=== PATIENT | female | born 1970 | race Caucasian/White ===

== ENCOUNTER 2017-04-08 10:28 | Inpatient (IN) | payer OTHER ==
[2017-04-08 11:04] VITALS: BMI 27.4
--- NOTE | 2017-04-08 13:29 | HP ---
CIWA Score - CIWA Score Nausea/Vomitin-Mild Nausea/No Vomiting Muscle Tremors: 4-Moderate,w/Arms Extend Anxiety: 4-Mod. Anxious/Guarded Agitation: 4-Moderately Restless Paroxysmal Sweats: 3 Orientation: 0-Oriented Tacttile Disturbances: 0-None Auditory Disturbances: 0-None Visual Disturbances: 0-None Headache: 3-Moderate CIWA-Ar Total Score: 19 Admission ROS BHS - HPI Chief Complaint: I need to try again Allergies/Adverse Reactions: Allergies Allergy/AdvReac Type Severity Reaction Status Date / Time shellfish derived Allergy Severe Hives Verified 04/08/17 11:59 strawberry Allergy Severe Hives Verified 04/08/17 11:59 No Known Drug Allergies Allergy Verified 04/08/17 11:59 History of Present Illness: pt is a 46yr old female with a history of alcohol and cocaine dependence seeking detox for treatment. Exam Limitations: No Limitations, Intoxication - Ebola screening Have you traveled outside of the country in the last 21 days: No Have you had contact with anyone from an Ebola affected area: No Have you been sick,other than usual withdrawal symptoms: No Do you have a fever: No - Review of Systems Constitutional: Chills, Diaphoresis, Loss of Appetite, Changes in sleep, Unintentional Wgt. Loss EENT: reports: Tearing Respiratory: reports: No Symptoms reported Cardiac: reports: No Symptoms Reported GI: reports: Diarrhea, Nausea, Poor Appetite, Poor Fluid Intake, Indigestion, Abdominal cramping : reports: Burning, Discharge Musculoskeletal: reports: Back Pain, Joint Pain Integumentary: reports: Flushing, Sweating Neuro: reports: Headache, Tingling, Tremors Endocrine: reports: Excessive Sweating, Flushing, Intolerance to Cold, Intolerance to Heat Hematology: reports: No Symptoms Reported Psychiatric: reports: No Sypmtoms Reported, Judgement Intact, Mood/Affect Appropiate, Orientated x3, Agitated, Anxious Other Systems: Reviewed and Negative Patient History - Patient Medical History Hx Anemia: No Hx Asthma: No Hx Chronic Obstructive Pulmonary Disease (COPD): No Hx Cancer: No Hx Cardiac Disorders: No Hx Congestive Heart Failure: No Hx Hypertension: Yes Hx Hypercholesterolemia: No Hx Pacemaker: No HX Cerebrovascular Accident: No Hx Seizures: No Hx Dementia: No Hx Diabetes: Yes (IDDM) Hx Gastrointestinal Disorders: Yes (acid reflux) Hx Liver Disease: No Hx Genitourinary Disorders: No Hx Sexually Transmitted Disorders: No Hx Renal Disease (ESRD): No Hx Thyroid Disease: No Hx Human Immunodeficiency Virus (HIV): No (NEGATIVE HX) Hx Hepatitis C: No (negative) Hx Depression: Yes Hx Suicide Attempt: No Hx Bipolar Disorder: No Hx Schizophrenia: No - Patient Surgical History Past Surgical History: Yes Hx Neurologic Surgery: No Hx Cataract Extraction: No Hx Cardiac Surgery: No Hx Lung Surgery: No Hx Breast Surgery: No Hx Breast Biopsy: No Hx Abdominal Surgery: No Hx Appendectomy: No Hx Cholecystectomy: No Hx Genitourinary Surgery: No Hx Section: No Hx Orthopedic Surgery: Yes (neck, 11/30/2015 (fall);SX COCYX DUE TO OSTEOMYLITIS - 2010) Other Surgical History: tubal ligation in 2005 Anesthesia Reaction: No - PPD History Previous Implant?: Yes Documented Results: Negative w/proof Implanted On Prior [facility] Admission?: Yes Date: 09/21/16 Results: 0 mm PPD to be Administered?: No - Reproductive History Last Menstrual Period: 03/31/17 Patient : Yes - Smoking Cessation Smoking history: Never smoked Have you smoked in the past 12 months: No Aproximately how many cigarettes per day: 0 Cigars Per Day: 0 Hx Chewing Tobacco Use: No Initiated information on smoking cessation: No - Substance & Tx. History Hx Alcohol Use: Yes Hx Substance Use: Yes Substance Use Type: Alcohol, Cocaine Hx Substance Use Treatment: No - Substances Abused Crack Route: Smoking Frequency: 3-6 times per week Amount used: $50 Age of first use: 45 Date of Last Use: 04/07/17 Alcohol-vodka/beer Route: Oral Frequency: Daily Amount used: 1 liter/3-4 6 pks. Age of first use: 36 Date of Last Use: 04/08/17 Family Disease History - Family Disease History Family Disease History: Diabetes: Grandparent (alcohol), Father, Mother, Other: Grandparent Admission Physical Exam BHS - Vital Signs Vital Signs: Vital Signs - 24 hr 04/08/17 11:00 Temperature 97.6 F Pulse Rate 105 H Respiratory 20 Rate Blood Pressure 162/86 - Physical General Appearance: Yes: Disheveled, Moderate Distress, Tremorous, Irritable, Sweating, Anxious HEENTM: Yes: Normal Voice, Nasal Congestion, Rhinorrhea Respiratory: Yes: Lungs Clear, Normal Breath Sounds, No Respiratory Distress Neck: Yes: No masses,lesions,Nodules Breast: Yes: Within Normal Limits Cardiology: Yes: Regular Rhythm, Regular Rate, S1, S2 Abdominal: Yes: Normal Bowel Sounds, Non Tender, Soft Genitourinary: Yes: Burning, [place], Vaginal Discharge, Yeast Infection Back: Yes: Within Normal Limits Musculoskeletal: Yes: Back pain Extremities: Yes: Normal Capillary Refill, Normal Inspection, Tremors 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: Yes: Fully Oriented, Alert, Normal Response Integumentary: Yes: Normal Color, Diaphoresis Lymphatic: Yes: Within Normal Limits - Diagnostic (1) Alcohol dependence with uncomplicated withdrawal Current Visit: Yes Status: Chronic (2) Cocaine abuse Current Visit: Yes Status: Chronic (3) GERD (gastroesophageal reflux disease) Current Visit: Yes Status: Chronic Qualifiers: Esophagitis presence: without esophagitis Qualified Code(s): K21.9 - Gastro-esophageal reflux disease without esophagitis (4) Hypertension Current Visit: Yes Status: Chronic Qualifiers: Hypertension type: essential hypertension Qualified Code(s): I10 - Essential (primary) hypertension (5) Insulin dependent diabetes mellitus Current Visit: Yes Status: Chronic (6) Peripheral neuropathy Current Visit: Yes Status: Chronic Qualifiers: Peripheral neuropathy type: polyneuropathy, alcohol-induced Qualified Code(s): G62.1 - Alcoholic polyneuropathy Cleared for Admission [facility] - Detox or Rehab [facility] Level of Care: Medically Managed Detox Regimen/Protocol: Librium [facility] Breath Alcohol Content Breath Alcohol Content: 0.095 Urine Pregancy Test - Result Urine Test Results: Negative- NO Line Present Urine Drug Screen - Results Drug Screen Negative: No Urine Drug Screen Results: DEEPAK-Cocaine, BZO-Benzodiazepines
[2017-04-08] MEDS ORDERED: diphenhydrAMINE HCL 50 MG CAPSULE PO PRN (13:32)
[2017-04-08] MEDS ORDERED: hydrOXYzine PAMOATE 50 MG CAPSULE (FP) PO PRN (13:32)
[2017-04-08] MEDS ORDERED: P-EPHED 60MG/TRIPROLIDI 2.5MG TABLET PO PRN (13:32)
[2017-04-08] MEDS ORDERED: ACETAMINOPHEN 325 MG TABLET (FP) PO PRN (13:32)
[2017-04-08] MEDS ORDERED: chlordiazePOXIDE HCL 25 MG CAPSULE PO PRN (13:32)
[2017-04-08] MEDS ORDERED: MAGNESIUM CITRATE 300 ML BOTTLE PO PRN (13:32)
[2017-04-08] MEDS ORDERED: MAGNESIUM HYDROX 2400MG/30ML ORAL SUSPENSION 30 ML CUP PO PRN (13:32)
[2017-04-08] MEDS ORDERED: MAG HYDROX/AL HYDROX/SIMETH 30 ML UNIT-DOSE CUP PO PRN (13:32)
[2017-04-08] MEDS ORDERED: LOPERAMIDE HCL 2 MG CAPSULE PO PRN (13:32)
[2017-04-08] MEDS ORDERED: IBUPROFEN 400 MG TABLET (FP) PO PRN (13:32)
[2017-04-08] MEDS ORDERED: guaiFENesin/D-METHORPHAN HB 10 ML UNIT-DOSE CUPS PO PRN (13:32)
[2017-04-08] MEDS ORDERED: MENTHOL/PHENOL 1 EACH UD MM PRN (13:32)
[2017-04-08] MEDS ORDERED: chlordiazePOXIDE HCL 25 MG CAPSULE PO ONE (14:05)
[2017-04-08] MEDS ORDERED: FLUCONAZOLE 50 MG TABLET PO ONE ×2 (14:06→18:00)
[2017-04-08] MEDS: chlordiazePOXIDE HCL 25 MG CAPSULE PO SCH ×2 (17:40→22:56)
[2017-04-08] MEDS ORDERED: INSULIN (NOVOLOG) ASPART 100 UNITS/ML 10ML VIAL ONE (17:47)
[2017-04-08] MEDS: INSULIN (NOVOLOG) ASPART 100 UNITS/ML 10ML VIAL SQ SCH (17:48)
[2017-04-08 18:59] LABS: URINE APPEARANCE CLEAR; URINE BILIRUBIN NEGATIVE (NEGATIVE); URINE COLOR LTYELLOW; URINE GLUCOSE (UA) 3+ (NEGATIVE); URINE KETONE 2+ (NEGATIVE); URINE NITRITE NEGATIVE (NEGATIVE); URINE UROBILINOGEN NEGATIVE E.U./dl (0.2-1.0)
[2017-04-08 19:06] LABS: URINE BLOOD 2+ (NEGATIVE); URINE LEUK ESTERASE 2+ (NEGATIVE); URINE PROTEIN 1+ (NEGATIVE)
[2017-04-08] MEDS ORDERED: CYCLOBENZAPRINE HCL 10 MG TABLET (FP) PO ONE (19:11)
[2017-04-08 19:15] LABS: URINE BACTERIA RARE /hpf (NONE SEEN); URINE MUCUS RARE; URINE RBC 5 /hpf (0-3); URINE WBC 5 /hpf (3-5); YEAST FEW
[2017-04-08] MEDS: IBUPROFEN 400 MG TABLET (FP) PO PRN (20:38)
[2017-04-08] MEDS: RANITIDINE HCL 150 MG TABLET (FP) PO SCH (22:56)
[2017-04-08] MEDS: THIAMINE HCL 100 MG TABLET (FP) PO SCH (22:56)
[2017-04-08] MEDS: INSULIN DETEMIR 100 UNITS/ML MDV SQ SCH (22:58)
[2017-04-08] MEDS: MICONAZOLE NITRATE 2% VAGINAL CREAM 45 GM TUBE VG SCH (23:12)
[2017-04-09] MEDS: chlordiazePOXIDE HCL 25 MG CAPSULE PO SCH ×4 (05:42→22:22)
[2017-04-09] MEDS ORDERED: INSULIN (NOVOLOG) ASPART 100 UNITS/ML 10ML VIAL ONE ×3 (06:21→17:13)
[2017-04-09] MEDS: INSULIN (NOVOLOG) ASPART 100 UNITS/ML 10ML VIAL SQ SCH ×3 (07:25→17:15)
--- NOTE | 2017-04-09 10:06 | CONSULT ---
[facility] Psychiatric Consult - Data Date of interview: 04/09/17 Admission source: [facility] Identifying data: This is 46 years old female with no psychiatric hospitalization history intoxicated with: Alcohol and Cocaine Substance Abuse History: - Smoking Cessation. Smoking history: Never smoked. Have you smoked in the past 12 months: No. Aproximately how many cigarettes per day: 0. Cigars Per Day: 0. Hx Chewing Tobacco Use: No. Initiated information on smoking cessation: No. - Substance & Tx. History. Hx Alcohol Use: Yes. Hx Substance Use: Yes. Substance Use Type: Alcohol, Cocaine. Hx Substance Use Treatment: No. - Substances Abused. Crack. Route: Smoking. Frequency: 3-6 times per week. Amount used: $50. Age of first use: 45. Date of Last Use: 04/07/17. Alcohol-vodka/beer. Route: Oral. Frequency: Daily. Amount used: 1 liter/3-4 6 pks. Age of first use: 36. Date of Last Use: 08/17 Medical History: GERD, HTN, DM-1 Psychiatric History: PATIENT REPORTS HISTORY OFM AMDD, REPORTS TAKING PRIOR TO ADMISISON: TRAZODONE 200MG PO QHS. GABAPENTIN 400MG PO TID. REMERON 15MG PO QHS Physical/Sexual Abuse/Trauma History: Denies Additional Comment: TRAZODONE 200MG PO QHS. GABAPENTIN 400MG PO TID. REMERON 15MG PO QHS Mental Status Exam - Mental Status Exam Alert and Oriented to: Person Cognitive Function: Fair Patient Appearance: Unkempt Mood: Sad Patient Behavior: Sedated Speech Pattern: Delayed Voice Loudness: Mildly Soft/Quiet Thought Process: Circumstantial Thought Disorder: Being Controlled Hallucinations: Denies Suicidal Ideation: Denies Homicidal Ideation: Denies Insight/Judgement: Fair Sleep: Difficulty falling asleep Appetite: Weight gain Muscle strength/Tone: Mild Hypotonicity Gait/Station: Shuffling Additional Comments: TRAZODONE 200MG PO QHS. GABAPENTIN 400MG PO TID. 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 GABAPENTIN 400MG PO TID. REMERON 15MG PO QHS
[2017-04-09 10:16] LABS: MCH 31.1 pg (25.7-33.7); MCHC 33.9 g/dl (32.0-36.0); MEAN CELL VOLUME 91.6 fl (80-96); MEAN PLT VOLUME 8.3 fl (7.5-11.1); PLATELET COUNT 208 K/MM3 (134-434); RDW 16.1 % (11.6-15.6); WHITE BLOOD COUNT 4.8 K/mm3 (4.0-10.0)
[2017-04-09 10:37] LABS: ALBUMIN 2.6 g/dl (3.4-5.0); ALK PHOS 280 U/L (45-117); ANION GAP 19 (8-16); BILIRUBIN,TOTAL 0.5 mg/dL (0.2-1.0); CALCIUM 8.6 mg/dL (8.5-10.1); CO2 22 mmol/L (21-32); COCKROFT - GAULT 117.4955; CREATININE 0.7 mg/dL (0.55-1.02); SGOT/AST 35 U/L (15-37); SGPT/ALT 43 U/L (12-78); TOT PROT 7.1 g/dl (6.4-8.2)
[2017-04-09] MEDS: LISINOPRIL 20 MG TABLET (FP) PO SCH (10:44)
[2017-04-09] MEDS: PRENATAL VITAMINS W/ FOLIC ACID TABLET (FP) PO SCH (10:44)
[2017-04-09] MEDS: RANITIDINE HCL 150 MG TABLET (FP) PO SCH ×2 (10:44→22:21)
[2017-04-09] MEDS ORDERED: CYCLOBENZAPRINE HCL 10 MG TABLET (FP) PO PRN (10:47)
[2017-04-09] MEDS: IBUPROFEN 400 MG TABLET (FP) PO PRN (10:49)
--- NOTE | 2017-04-09 11:19 | PN ---
S CIWA - CIWA Score Nausea/Vomitin-Mild Nausea/No Vomiting Muscle Tremors: 4-Moderate,w/Arms Extend Anxiety: 3 Agitation: 4-Moderately Restless Paroxysmal Sweats: 3 Orientation: 0-Oriented Tacttile Disturbances: 0-None Auditory Disturbances: 0-None Visual Disturbances: 0-None Headache: 1-Very Mild CIWA-Ar Total Score: 16 BHS Progress Note (SOAP) Subjective: agitation nausea sweats shakes muscle cramps Objective: 04/09/17 11:18 Vital Signs Temperature 97.7 F 04/09/17 10:58 Pulse Rate 97 H 04/09/17 10:58 Respiratory Rate 18 04/09/17 10:58 Blood Pressure 149/87 04/09/17 10:58 O2 Sat by Pulse Oximetry (%) Laboratory Tests 04/08/17 04/08/17 04/08/17 12:26 15:00 17:44 WBC RBC Hgb Hct MCV MCHC RDW Plt Count MPV POC Glucometer 455 537 Urine Color Ltyellow Urine Appearance Clear Urine pH 6.0 Ur Specific [place] <= 1.005 Urine Protein 1+ H Urine Glucose (UA) 3+ H Urine Ketones 2+ H Urine Blood 2+ H Urine Nitrite Negative Urine Bilirubin Negative Urine Urobilinogen Negative Ur Leukocyte Esterase 2+ H D Urine RBC 5 Urine WBC 5 Ur Epithelial Cells Rare Urine Bacteria Rare Urine Mucus Rare Urine Yeast Few 04/08/17 04/09/17 04/09/17 21:57 05:41 06:00 WBC 4.8 RBC 4.00 Hgb 12.4 Hct 36.7 MCV 91.6 MCHC 33.9 RDW 16.1 H Plt Count 208 MPV 8.3 POC Glucometer 498 352 Urine Color Urine Appearance Urine pH Ur Specific [place] Urine Protein Urine Glucose (UA) Urine Ketones Urine Blood Urine Nitrite Urine Bilirubin Urine Urobilinogen Ur Leukocyte Esterase Urine RBC Urine WBC Ur Epithelial Cells Urine Bacteria Urine Mucus Urine Yeast labs pending awake/alert ambulating no acute distress Assessment: 04/09/17 11:18 withdrawal sx Plan: continue detox increase fluids labs pending flexiril prn glucerna with meals
[2017-04-09 12:20] LABS: GLUCOSE,RANDOM 460 mg/dL (74-106)
--- NOTE | 2017-04-09 12:50 | EKG ---
Test Reason : Blood Pressure : / mmHG Vent. Rate : 107 BPM Atrial Rate : 107 BPM P-R Int : 134 ms QRS Dur : 082 ms QT Int : 408 ms P-R-T Axes : 063 015 038 degrees QTc Int : 544 ms SINUS TACHYCARDIA POSSIBLE LEFT ATRIAL ENLARGEMENT LEFT VENTRICULAR HYPERTROPHY PROLONGED QT ABNORMAL ECG NO PREVIOUS ECGS AVAILABLE Confirmed by BAIRON LATHAM MD ([id number]) on 04/09/2017 12:50:20 PM Referred By: Confirmed By:BAIRON LATHAM MD
[2017-04-09] MEDS: GABAPENTIN 400 MG CAPSULE (FP) PO SCH ×2 (13:38→22:22)
[2017-04-09] MEDS ORDERED: MIRTAZAPINE 15 MG TABLET (FP) PO SCH (22:00)
[2017-04-09] MEDS ORDERED: traZODone HCL 100 MG TABLET (FP) PO SCH (22:00)
[2017-04-09] MEDS: THIAMINE HCL 100 MG TABLET (FP) PO SCH (22:22)
[2017-04-09] MEDS ORDERED: INSULIN (NOVOLOG) ASPART 100 UNITS/ML 10ML VIAL SQ ONE (23:07)
[2017-04-09] MEDS: MICONAZOLE NITRATE 2% VAGINAL CREAM 45 GM TUBE VG SCH (23:21)
[2017-04-09] MEDS: INSULIN DETEMIR 100 UNITS/ML MDV SQ SCH (23:21)
[2017-04-10] MEDS: chlordiazePOXIDE HCL 25 MG CAPSULE PO SCH ×2 (05:58→11:11)
[2017-04-10] MEDS: GABAPENTIN 400 MG CAPSULE (FP) PO SCH ×2 (05:58→14:03)
[2017-04-10] MEDS ORDERED: INSULIN (NOVOLOG) ASPART 100 UNITS/ML 10ML VIAL ONE (06:51)
[2017-04-10] MEDS: INSULIN (NOVOLOG) ASPART 100 UNITS/ML 10ML VIAL SQ SCH ×2 (06:54→11:11)
--- NOTE | 2017-04-10 09:55 | PN ---
S Progress Note Note: Pt is AAOx3 and appears with chills, sweats, fever with a temp of 102, BP 144/88 , pulse 129. spoke with AMINATA Johnson and gave report for pt evaluation.
[2017-04-10 10:40] VITALS: BP 144/88; PULSE 129; TEMP 102.2
[2017-04-10] MEDS: RANITIDINE HCL 150 MG TABLET (FP) PO SCH (11:11)
[2017-04-10] MEDS: LISINOPRIL 20 MG TABLET (FP) PO SCH (11:11)
[2017-04-10] MEDS: PRENATAL VITAMINS W/ FOLIC ACID TABLET (FP) PO SCH (11:11)
[2017-04-10] MEDS ORDERED: chlordiazePOXIDE 5 MG CAPSULE PO SCH (17:00)
--- NOTE | 2017-04-11 09:02 | DS ---
[facility] Detox Discharge Summary Admission Date: 04/08/17 Discharge Date: 04/11/17 - History Present History: Alcohol Dependence - Physical Exam Results Vital Signs: Vital Signs Temperature 102.2 F H 04/10/17 10:39 Pulse Rate 129 H 04/10/17 10:39 Respiratory Rate 18 04/10/17 10:39 Blood Pressure 144/88 04/10/17 10:39 O2 Sat by Pulse Oximetry (%) - Treatment Hospital Course: Detox Protocol Followed, Detoxed Safely, Responded well, Discharged Condition Good, Rehab Referral Accepted - Medication Discharge Medications: Ambulatory Orders Insulin Sliding Scale [Novolog Vial Sliding Scale -] 0 units SQ TIDAC 05/30/16 Ibuprofen [Motrin -] 800 mg PO Q8H PRN #60 tablet 11/27/16 Insulin Glargine,Hum.rec.anlog [Lantus (10mL VIAL) -] 25 units SQ HS #1 vial Lisinopril [Prinivil] 20 mg PO DAILY #30 tablet 11/27/16 Ranitidine [Zantac -] 150 mg PO BID #60 tablet 11/27/16 Gabapentin [Neurontin -] 400 mg PO TID #90 cap 04/09/17 Mirtazapine [Remeron -] 15 mg PO HS #30 tab 04/09/17 Trazodone HCl [Desyrel -] 200 mg PO HS #30 tablet 04/09/17 - Diagnosis (1) Alcohol dependence with uncomplicated withdrawal Status: Chronic (2) Cocaine abuse Status: Chronic (3) GERD (gastroesophageal reflux disease) Status: Chronic Qualifiers: Esophagitis presence: without esophagitis Qualified Code(s): K21.9 - Gastro-esophageal reflux disease without esophagitis (4) Hypertension Status: Chronic Qualifiers: Hypertension type: essential hypertension Qualified Code(s): I10 - Essential (primary) hypertension (5) Insulin dependent diabetes mellitus Status: Chronic (6) Peripheral neuropathy Status: Chronic Qualifiers: Peripheral neuropathy type: polyneuropathy, alcohol-induced Qualified Code(s): G62.1 - Alcoholic polyneuropathy - AMA Did Patient Leave Against Medical Advice: No (pt sent to ED for high fever)
[2017-04-11] MEDS ORDERED: chlordiazePOXIDE HCL 10 MG CAPSULE PO SCH (17:00)
== END 2017-04-10 18:46 | disposition short-term general hospital (02) | DRG 897 ==
LOC: YASAS 10:28 → Y6N 13:08
PROVIDERS: ADMIT Internal Medicine Addiction Medicine; ATTEND Internal Medicine Addiction Medicine
PROC: HZ2ZZZZ Detoxification Services for Substance Abuse Treatment (ICD-10-PCS; principal; 2017-04-08)
DX: F10.230 Alcohol dependence with withdrawal, uncomplicated (principal); F10.280 Alcohol dependence with alcohol-induced anxiety disorder; F10.282 Alcohol dependence with alcohol-induced sleep disorder; F14.10 Cocaine abuse, uncomplicated; F32.9 Major depressive disorder, single episode, unspecified; E11.9 Type 2 diabetes mellitus without complications; I10 Essential (primary) hypertension; K21.9 Gastro-esophageal reflux disease without esophagitis; G62.1 Alcoholic polyneuropathy; R50.9 Fever, unspecified; Z79.4 Long term (current) use of insulin
CPT/HCPCS: 36415; 80053; 81003; 81015; 85027; 86593; 93005; 93010

== ENCOUNTER 2017-04-10 10:53 | Inpatient (IN) | payer OTHER ==
--- NOTE | 2017-04-10 11:11 | PDOC ---
History of Present Illness - History of Present Illness Initial Comments: 04/10/17 14:02 The patient is a 46 year old female, with a significant past medical history of Hypertension, GERD, and Diabetes Type I, who presents to the emergency department from [facility] with fever and lower extremity cellulitis today. The patient is somnolent at bedside and not answering questions. Allergies: NKDA Social history: cocaine and alcohol abuse. <Karla Nye - Last Filed: 04/10/17 16:50> <Janeen Pulido - Last Filed: 04/24/17 12:06> - General Chief Complaint: SIRS, Suspected/Possible Stated Complaint: FEVER Time Seen by Provider: 04/10/17 11:10 Past History <Karla Nye - Last Filed: 04/10/17 16:50> - Past Medical History Anemia: No Asthma: No Cancer: No Cardiac Disorders: No CVA: No COPD: No CHF: No Dementia: No Diabetes: Yes (IDDM) GI Disorders: Yes (acid reflux) Disorders: No HTN: Yes Hypercholesterolemia: No Kidney Stones: No Liver Disease: No Suicide Attempt (Hx): No Seizures: No Thyroid Disease: No - Surgical History Abdominal Surgery: No Appendectomy: No Cardiac Surgery: No Cholecystectomy: No Lung Surgery: No Neurologic Surgery: No Orthopedic Surgery: Yes (neck, 11/30/2015 (fall);SX COCYX DUE TO OSTEOMYLITIS- 2010) - Reproductive History PID: No - Psycho/Social/Smoking Cessation Hx Anxiety: Yes Suicidal Ideation: No Smoking History: Never smoked Have you smoked in the past 12 months: No Number of Cigarettes Smoked Daily: 0 Cigars Per Day: 0 'Breaking Loose' booklet given: 05/30/16 Hx Alcohol Use: Yes Drug/Substance Use Hx: Yes Substance Use Type: Alcohol, Cocaine Hx Substance Use Treatment: No <Janeen Pulido - Last Filed: 04/24/17 12:06> - Past Medical History Allergies/Adverse Reactions: Allergies Allergy/AdvReac Type Severity Reaction Status Date / Time shellfish derived Allergy Severe Hives Verified 04/10/17 11:13 strawberry Allergy Severe Hives Verified 04/10/17 11:13 No Known Drug Allergies Allergy Verified 04/10/17 11:13 Home Medications: Ambulatory Orders Insulin Sliding Scale [Novolog Vial Sliding Scale -] 0 units SQ TIDAC 05/30/16 Ibuprofen [Motrin -] 800 mg PO Q8H PRN #60 tablet 11/27/16 Insulin Glargine,Hum.rec.anlog [Lantus (10mL VIAL) -] 25 units SQ HS #1 vial Lisinopril [Prinivil] 20 mg PO DAILY #30 tablet 11/27/16 Ranitidine [Zantac -] 150 mg PO BID #60 tablet 11/27/16 Gabapentin [Neurontin -] 400 mg PO TID #90 cap 04/09/17 Mirtazapine [Remeron -] 15 mg PO HS #30 tab 04/09/17 Trazodone HCl [Desyrel -] 200 mg PO HS #30 tablet 04/09/17 Review of Systems - Review of Systems Able to Perform ROS?: No (poor historian, somnolent) <Karla Nye - Last Filed: 04/10/17 16:50> *Physical Exam - Vital Signs Last Vital Signs Temp Pulse Resp BP Pulse Ox 101.7 F H 101 H 17 109/62 98 04/10/17 11:08 04/10/17 12:00 04/10/17 12:00 04/10/17 12:00 04/10/17 12:00 <Karla Nye - Last Filed: 04/10/17 16:50> - Physical Exam Comments: GENERAL: Sleeping, wakes up to voice. HEAD: No signs of trauma EYES: PERRLA, EOMI, sclera anicteric, conjunctiva clear ENT: Auricles normal inspection, hearing grossly normal, nares patent, oropharynx clear without exudates. Moist mucosa NECK: Normal ROM, supple, no lymphadenopathy, JVD, or masses LUNGS: Breath sounds equal, clear to auscultation bilaterally. No wheezes, and no crackles HEART:Tachycardic, normal S1 and S2, no murmurs, rubs or gallops ABDOMEN: Soft, nontender, normoactive bowel sounds. No guarding, no rebound. No masses EXTREMITIES: RLE with erythema/induration extending up to the knee. Knee is edematous, tender. No fluctuant areas. Dec ROM R knee due to pain. Remainder of extremities with normal range of motion, no edema. No clubbing or cyanosis. No cords, erythema, or tenderness NEUROLOGICAL: Poor cooperation with initial exam. No gross deficits SKIN: Warm, Dry, normal turgor, no rashes or lesions noted. <Janeen Pulido - Last Filed: 04/24/17 12:06> Procedures - Arthrocentesis Indication: Septic Joint Arthrocentesis Site: right: knee Betadine Prep: (chloraprep) Sterile Dressing Applied: Yes Dry Tap: No Fluid Color: Bloody (clear fluid, blood-tinged) Anesthesia: 1% Lidocaine Needle Size (guage): 18g Complications: No (pt tolerated well) <Janeen Pulido - Last Filed: 04/24/17 12:06> ED Treatment Course - LABORATORY CBC & Chemistry Diagram: 04/10/17 12:10 04/10/17 12:18 - ADDITIONAL ORDERS Additional order review: Laboratory Results 04/10/17 04/10/17 04/10/17 12:18 12:18 12:18 INR Sodium Potassium Chloride Carbon Dioxide Anion Gap BUN Creatinine Creat Clearance w eGFR Random Glucose Lactic Acid 3.225 H* Calcium Total Bilirubin AST ALT Alkaline Phosphatase C-Reactive Protein Cancelled Total Protein Albumin Blood Type O NEGATIVE Antibody Screen Negative Spec Expiration Date 04/10/17 04/10/17 12:18 12:18 INR 1.26 H Sodium 134 L Potassium 4.2 Chloride 99 Carbon Dioxide 26 Anion Gap 9 BUN 12 D Creatinine 0.9 D Creat Clearance w eGFR > 60 Random Glucose 596 H* D Lactic Acid Calcium 9.2 Total Bilirubin 0.4 AST 32 ALT 39 Alkaline Phosphatase 341 H D C-Reactive Protein 3.0 H Total Protein 6.2 L Albumin 2.1 L Blood Type Antibody Screen Spec Expiration Date 04/10/17 12:10 RBC 4.09 MCV 92.6 MCHC 33.1 RDW 16.3 H MPV 7.8 Neutrophils % 83.3 H D Lymphocytes % 10.1 D Monocytes % 6.4 Eosinophils % 0.0 Basophils % 0.2 - RADIOLOGY Radiograph Interpretation: 04/10/17 16:50 Soft tissue US of right lower extremity was read by Dr. Portillo at 15:42 Impression: suspected subcutaneous abscess anterior to the right knee. See note for details. - Medications Given in the ED: ED Medications Discontinued Medications Generic Name Dose Route Start Last Admin Trade Name Freq PRN Reason Stop Dose Admin Ceftriaxone Sodium 2 gm/ 100 mls @ 200 mls/hr 04/10/17 11:30 04/10/17 12:19 Dextrose IVPB 04/10/17 11:59 200 mls/hr ONCE ONE Administration Vancomycin HCl 1,000 mg/ 250 mls @ 250 mls/hr 04/10/17 11:30 04/10/17 12:32 Dextrose IVPB 04/10/17 12:29 250 mls/hr ONCE ONE Administration Protocol Insulin Human Regular 6 units 04/10/17 13:32 04/10/17 13:50 Novolin R Vial *For Ivpush Or Iv Drip Only* SQ 04/10/17 13:33 6 units ONCE ONE Administration <Karla Nye - Last Filed: 04/10/17 16:50> - LABORATORY CBC & Chemistry Diagram: 04/18/17 07:40 04/18/17 07:40 <Janeen Pulido - Last Filed: 04/24/17 12:06> Medical Decision Making - Medical Decision Making 04/10/17 14:06 Dr. Morgan was called at 14:00 and the patient's case was discussed. Dr. Morgan accepts admission of this patient and requests consult to Dr. Kan and Dr. Bonifacio Kan was paged at his office at 14:06 requesting for a doctor to doctor consult regarding this patient. I have been informed that Dr. Kan will return the call when he is finished seeing a patient. Dr. Valdovinos was called via phone answering service at 14:10 requesting a call back for doctor to doctor consult regarding this patient. Dr. Kan returned the call at 14:14 and the patient's case was discussed. Dr. Valdovinos returned the call at 14:53 and the patient's case was discussed. 04/10/17 15:11 Dr. Kan was paged at his office requesting a call back, after aspiration of the patient's right knee, for doctor to doctor consult. 04/10/17 16:51 Dr. Morgan was called and updated about the patient's care. <Karla Nye - Last Filed: 04/10/17 16:50> - Medical Decision Making Patient with significant cellulitis to RLE. She has multiple excoriated and abraded areas for possible entry of bacteria. She met criteria for sepsis, was given abx immediately. I initially considered arthrocentesis of the knee, but with the significant cellulitis, did not want to enter through the cellulitis. I discussed with Dr. Kan, who stated that it would be acceptable to do this, so at that point I did the arthrocentesis. I was able to find an area that was free of erythema to enter. The fluid was clear and there was very little, which I also discussed with Dr. Kan. Less concern for septic joint given this finding. At this point it raised concern that perhaps there was an abscess overlying the knee joint, so I obtained soft tissue sono to further evaluate. I opted not to open the abscess, as it was difficult to find by palpation, and due to proximity to joint. Discussed with Dr. Morgan, front desk supervisor for service admissions today. Will place ID and ortho consult. <Janeen Pulido - Last Filed: 04/24/17 12:06> *DC/Admit/Observation/Transfer - Attestations Scribe Attestion: 04/10/17 14:04 Documentation prepared by Karla Nye, acting as senior medical transcriptionist for Janeen Pulido MD, <Karla Nye - Last Filed: 04/10/17 16:50> - Discharge Dispostion Admit: Yes <Janeen Pulido - Last Filed: 04/24/17 12:06> Diagnosis at time of Disposition: Sepsis Qualifiers: Sepsis type: sepsis due to unspecified organism Qualified Code(s): A41.9 - Sepsis, unspecified organism Cellulitis Qualifiers: Site of cellulitis: extremity Site of cellulitis of extremity: lower extremity Laterality: right Qualified Code(s): L03.115 - Cellulitis of right lower limb - Discharge Dispostion Disposition: [facility] Condition at time of disposition: Guarded
[2017-04-10 11:16] VITALS: BMI 27.4
[2017-04-10] MEDS ORDERED: VANCOMYCIN 1,000 MG in DEXTROSE 5%-WATER - 250 ML IVPB ONE (11:30)
[2017-04-10] MEDS ORDERED: CEFTRIAXONE 2 GM in DEXTROSE 5%-WATER - 100 ML IVPB ONE (11:30)
[2017-04-10] MEDS ORDERED: VANCOMYCIN 1 GRAM (PRE-DOCKED) 250 ML IVPB ONE (11:57)
[2017-04-10] MEDS ORDERED: CEFTRIAXONE 50 ML ONE ×2 (11:57→12:19)
[2017-04-10 12:25] LABS: BASOPHIL 0.2 % (0-2.0); MCH 30.7 pg (25.7-33.7); MCHC 33.1 g/dl (32.0-36.0); MEAN CELL VOLUME 92.6 fl (80-96); MEAN PLT VOLUME 7.8 fl (7.5-11.1); NEUTROPHILS 83.3 % (42.8-82.8); PLATELET COUNT 200 K/MM3 (134-434); RDW 16.3 % (11.6-15.6); WHITE BLOOD COUNT 9.5 K/mm3 (4.0-10.0)
[2017-04-10 12:40] LABS: INR 1.26 (0.82-1.09); PROTHROMBIN TIME (PATIENT) 13.9 SEC (9.98-11.88)
[2017-04-10 12:47] LABS: ALBUMIN 2.1 g/dl (3.4-5.0); ALK PHOS 341 U/L (45-117); ANION GAP 9 (8-16); BILIRUBIN,TOTAL 0.4 mg/dL (0.2-1.0); CALCIUM 9.2 mg/dL (8.5-10.1); CO2 26 mmol/L (21-32); COCKROFT - GAULT 91.3835; CREATININE 0.9 mg/dL (0.55-1.02); SGOT/AST 32 U/L (15-37); SGPT/ALT 39 U/L (12-78); TOT PROT 6.2 g/dl (6.4-8.2)
[2017-04-10 12:48] LABS: GLUCOSE,RANDOM 596 mg/dL (74-106)
[2017-04-10] MEDS ORDERED: INSULIN REGULAR HUMAN 100 UNITS/ML *VIAL SQ ONE ×2 (13:32→16:13)
[2017-04-10] MEDS ORDERED: SODIUM CHLORIDE 1,000 ML IV STA (13:32)
[2017-04-10] MEDS ORDERED: INSULIN REGULAR HUMAN 100 UNITS/ML *VIAL ONE (13:43)
[2017-04-10] MEDS ORDERED: morphine CARPU-JECT 4 MG/1 ML DISP.SYRIN IVPUSH ONE (14:19)
[2017-04-10] MEDS ORDERED: morphine CARPU-JECT 4 MG/1 ML DISP.SYRIN ONE (14:20)
[2017-04-10] MEDS ORDERED: ACETAMINOPHEN 1000 MG/100 ML VIAL (NON FORMULARY) IVPB ONE (14:55)
[2017-04-10] MEDS ORDERED: ACETAMINOPHEN INJECTION 100 ML IVPB ONE ×2 (15:25→16:11)
[2017-04-10] MEDS ORDERED: SODIUM CHLORIDE 1,000 ML IV SCH (15:45)
[2017-04-10] MEDS ORDERED: INSULIN (NOVOLOG) ASPART 100 UNITS/ML 10ML VIAL ONE ×2 (16:14→21:30)
[2017-04-10 20:08] LABS: SYNOVIAL FLUID NEUTROPHILS 81 %
[2017-04-10 20:09] LABS: SYNOVIAL FLUID LYMPHOCYTES 11 %; SYNOVIAL FLUID MONOCYTES 7 %
--- NOTE | 2017-04-10 20:19 | HP ---
Admitting History and Physical - Admission Chief Complaint: Fever History of Present Illness: Pt is a 46 y/o female with PMH significant for HTN, GERD, diabetes and substance abuse. Pt was sent from [facility] due to fever. In the ER pt found to have cellulitis of RLE w/ probable fluid collection of Rt knee wc was subsquently drained in the ER. Pt was found to be febrile to 101.7 with normal WBC. History Source: Patient, Medical Record - Past Medical History Cardiovascular: Yes: HTN Gastrointestinal: Yes: GERD ...LMP: 03/31/17 ...: No Psych: Yes: Other (Substance abuse) - Smoking History Smoking history: Never smoked Have you smoked in the past 12 months: No Aproximately how many cigarettes per day: 0 - Alcohol/Substance Use Hx Alcohol Use: Yes Home Medications - Allergies Allergies/Adverse Reactions: Allergies Allergy/AdvReac Type Severity Reaction Status Date / Time shellfish derived Allergy Severe Hives Verified 04/10/17 11:13 strawberry Allergy Severe Hives Verified 04/10/17 11:13 No Known Drug Allergies Allergy Verified 04/10/17 11:13 - Home Medications Home Medications: Ambulatory Orders Insulin Sliding Scale [Novolog Vial Sliding Scale -] 0 units SQ TIDAC 05/30/16 Ibuprofen [Motrin -] 800 mg PO Q8H PRN #60 tablet 11/27/16 Insulin Glargine,Hum.rec.anlog [Lantus (10mL VIAL) -] 25 units SQ HS #1 vial Lisinopril [Prinivil] 20 mg PO DAILY #30 tablet 11/27/16 Ranitidine [Zantac -] 150 mg PO BID #60 tablet 11/27/16 Gabapentin [Neurontin -] 400 mg PO TID #90 cap 04/09/17 Mirtazapine [Remeron -] 15 mg PO HS #30 tab 04/09/17 Trazodone HCl [Desyrel -] 200 mg PO HS #30 tablet 04/09/17 Family Disease History - Family Disease History Family Disease History: Diabetes: Grandparent (alcohol), Father, Mother, Other: Grandparent Physical Examination Vital Signs: Vital Signs Temperature 98.9 F 04/10/17 18:27 Pulse Rate 88 04/10/17 18:27 Respiratory Rate 20 04/10/17 18:27 Blood Pressure 109/60 04/10/17 18:27 O2 Sat by Pulse Oximetry (%) 94 L 04/10/17 18:27 Problem List - Problems (1) Cellulitis Assessment/Plan: Cont IV antibxs ID/ortho consults called Follow cultures Code(s): L03.90 - CELLULITIS, UNSPECIFIED Qualifiers: Site of cellulitis: extremity Site of cellulitis of extremity: lower extremity Laterality: right Qualified Code(s): L03.115 - Cellulitis of right lower limb (2) Hypertension Assessment/Plan: Cont lisinopril Code(s): I10 - ESSENTIAL (PRIMARY) HYPERTENSION Qualifiers: Hypertension type: essential hypertension Qualified Code(s): I10 - Essential (primary) hypertension (3) Diabetes Assessment/Plan: Cont levemir/novolog Cont sliding scale Code(s): E11.9 - TYPE 2 DIABETES MELLITUS WITHOUT COMPLICATIONS (4) Substance abuse Assessment/Plan: Psych consult Code(s): F19.10 - OTHER PSYCHOACTIVE SUBSTANCE ABUSE, UNCOMPLICATED (5) GERD (gastroesophageal reflux disease) Assessment/Plan: Cont ranitidine Code(s): K21.9 - GASTRO-ESOPHAGEAL REFLUX DISEASE WITHOUT ESOPHAGITIS Qualifiers: Esophagitis presence: without esophagitis Qualified Code(s): K21.9 - Gastro-esophageal reflux disease without esophagitis
[2017-04-10] MEDS ORDERED: SODIUM CHLORIDE 0.45% 1,000 ML IV SCH (20:30)
[2017-04-10] MEDS: HEPARIN NA (PORCINE) 5,000 UNITS/ML 1ML VIAL SQ SCH (21:26)
[2017-04-10] MEDS: RANITIDINE HCL 150 MG TABLET (FP) PO SCH (21:27)
[2017-04-10] MEDS: INSULIN DETEMIR 100 UNITS/ML MDV SQ SCH (21:29)
[2017-04-10] MEDS: INSULIN SLIDING SCALE (NOVOLOG) 1 VIAL SQ SCH (21:31)
[2017-04-10] MEDS ORDERED: GABAPENTIN 400 MG CAPSULE (FP) PO SCH (22:00)
[2017-04-10] MEDS ORDERED: MIRTAZAPINE 15 MG TABLET (FP) PO SCH (22:00)
[2017-04-11 03:04] LABS: URINE MARIJUANA THC NEGATIVE ng/ml (CUTOFF=50)
[2017-04-11] MEDS ORDERED: traMADol HCL 50 MG TABLET PO ONE (04:25)
[2017-04-11] MEDS: INSULIN SLIDING SCALE (NOVOLOG) 1 VIAL SQ SCH ×5 (06:24→21:43)
[2017-04-11] MEDS ORDERED: INSULIN (NOVOLOG) ASPART 100 UNITS/ML 10ML VIAL ONE ×4 (06:30→21:43)
[2017-04-11 08:49] LABS: BASOPHIL 0.6 % (0-2.0); MCH 30.6 pg (25.7-33.7); MCHC 33.3 g/dl (32.0-36.0); MEAN CELL VOLUME 91.9 fl (80-96); MEAN PLT VOLUME 8.2 fl (7.5-11.1); NEUTROPHILS 70.3 % (42.8-82.8); PLATELET COUNT 169 K/MM3 (134-434); RDW 16.4 % (11.6-15.6); WHITE BLOOD COUNT 7.3 K/mm3 (4.0-10.0)
[2017-04-11 09:20] LABS: ALBUMIN 1.9 g/dl (3.4-5.0); ANION GAP 12 (8-16); CALCIUM 7.7 mg/dL (8.5-10.1); CO2 23 mmol/L (21-32); GLUCOSE,RANDOM 260 mg/dL (74-106)
[2017-04-11 09:23] LABS: ALK PHOS 208 U/L (45-117); BILIRUBIN,TOTAL 0.3 mg/dL (0.2-1.0); COCKROFT - GAULT 205.6235; CREATININE 0.4 mg/dL (0.55-1.02); SGOT/AST 24 U/L (15-37); SGPT/ALT 31 U/L (12-78); TOT PROT 5.6 g/dl (6.4-8.2)
[2017-04-11] MEDS ORDERED: cefTRIAXone 1 GM/50 ML BAG (PRE-DOCKED) IVPB SCH (10:00)
[2017-04-11] MEDS ORDERED: CEFTRIAXONE 1 GM in DEXTROSE 5%-WATER - 50 ML IVPB SCH (10:00)
--- NOTE | 2017-04-11 10:17 | CONSULT ---
Consult Consult Specialty:: infectious diseases Referred by:: dr Vernon Reason for Consultation:: cellulitis of the rt leg,knee joint,healing wound on the knee joint - History of Present Illness Chief Complaint: pain and redness of the leg and knee joint History of Present Illness: patient not answering questions just sleeping and moans in pain the story is as follows 46 year old female, with a significant past medical history of Hypertension, GERD, and Diabetes Type I, who presents to the emergency department from [facility] with fever and lower extremity cellulitis today. as per discussion with er attending the though process was there was fluid in the knee joint which was aspirated by ER attending patient then receive u/s which showed collection ortho was called - History Source History Provided By: Medical Record Limitations to Obtaining History: Clinical Condition - Past Medical History ...LMP: 03/31/17 ...: No - Alcohol/Substance Use Hx Alcohol Use: Yes - Smoking History Smoking history: Never smoked Have you smoked in the past 12 months: No Aproximately how many cigarettes per day: 0 Home Medications - Allergies Allergies/Adverse Reactions: Allergies Allergy/AdvReac Type Severity Reaction Status Date / Time shellfish derived Allergy Severe Hives Verified 04/10/17 11:13 strawberry Allergy Severe Hives Verified 04/10/17 11:13 No Known Drug Allergies Allergy Verified 04/10/17 11:13 - Home Medications Home Medications: Ambulatory Orders Insulin Sliding Scale [Novolog Vial Sliding Scale -] 0 units SQ TIDAC 05/30/16 Ibuprofen [Motrin -] 800 mg PO Q8H PRN #60 tablet 11/27/16 Insulin Glargine,Hum.rec.anlog [Lantus (10mL VIAL) -] 25 units SQ HS #1 vial Lisinopril [Prinivil] 20 mg PO DAILY #30 tablet 11/27/16 Ranitidine [Zantac -] 150 mg PO BID #60 tablet 11/27/16 Gabapentin [Neurontin -] 400 mg PO TID #90 cap 04/09/17 Mirtazapine [Remeron -] 15 mg PO HS #30 tab 04/09/17 Trazodone HCl [Desyrel -] 200 mg PO HS #30 tablet 04/09/17 Family Disease History - Family Disease History Family Disease History: Diabetes: Grandparent (alcohol), Father, Mother, Other: Grandparent Review of Systems Unable to obtain ROS, reason: unable to obtain Physical Exam Vital Signs: Vital Signs Temperature 98.6 F 04/11/17 06:00 Pulse Rate 92 H 04/11/17 06:00 Respiratory Rate 20 04/11/17 06:00 Blood Pressure 122/76 04/11/17 06:00 O2 Sat by Pulse Oximetry (%) 96 04/10/17 21:00 Constitutional: Yes: Other (sleeping) Eyes: Yes: Conjunctiva Clear Neck: Yes: Supple Cardiovascular: Yes: Regular Rate and Rhythm Respiratory: Yes: Regular, CTA Bilaterally Gastrointestinal: Yes: Normal Bowel Sounds, Soft Musculoskeletal: Yes: Other Extremities: Yes: Erythema, Other (knee joint involvement) Integumentary: Yes: Erythema, Laceration, Other Wound/Incision: Yes: Open to air, Other 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: Yes: Other Psychiatric: Yes: Other Labs: CBC, BMP 04/11/17 07:30 04/11/17 07:30 Imaging - Results X-ray: Report Reviewed, Image Reviewed Ultrasound: Report Reviewed, Image Reviewed Assessment/Plan drug abuse knee collection r/o abscess of the knee joint methadone use plan patient needs ortho to evaluate the patient might need aspiration of the knee joint abx started await for cx report
--- NOTE | 2017-04-11 10:29 | PN ---
Progress Note, Physician History of Present Illness: patient more awake today more cooperative allowing to examine according to the patient she injured her leg on the glass and then she developed ulcer on the foot which then according to her led to cellulitits her cellulitits looks better - Current Medication List Current Medications: Active Medications Ceftriaxone Sodium (Rocephin 1gm Ivpb (Pre-Docked)) 1 gm IVPB DAILY [facility] Heparin Sodium (Porcine) (Heparin -) 5,000 unit SQ BID [facility] Last Admin: 04/10/17 21:26 Dose: 5,000 unit Sodium Chloride (1/2 Normal Saline) 1,000 mls @ 75 mls/hr IV ASDIR [facility] Last Admin: 04/10/17 21:29 Dose: 75 mls/hr Insulin Aspart (Novolog Vial Sliding Scale -) 1 vial SQ ACHS [facility] PRN Reason: Protocol Last Admin: 04/11/17 06:24 Dose: 6 units Insulin Detemir (Levemir Vial) 25 units SQ HS [facility] Last Admin: 04/10/17 21:29 Dose: 25 units Lisinopril (Prinivil) 20 mg PO DAILY [facility] Ranitidine HCl (Zantac -) 150 mg PO BID [facility] Last Admin: 04/10/17 21:27 Dose: 150 mg - Objective Vital Signs: Vital Signs Temperature 98.6 F 04/11/17 06:00 Pulse Rate 92 H 04/11/17 06:00 Respiratory Rate 20 04/11/17 06:00 Blood Pressure 122/76 04/11/17 06:00 O2 Sat by Pulse Oximetry (%) 96 04/10/17 21:00 Constitutional: Yes: Calm, Moderate Distress Cardiovascular: Yes: Regular Rate and Rhythm Respiratory: Yes: Regular, CTA Bilaterally Gastrointestinal: Yes: Normal Bowel Sounds, Soft Musculoskeletal: Yes: Joint Swelling (rt knee joint), Other Extremities: Yes: Erythema, Other Edema: RLE: 1+ Integumentary: Yes: Erythema (better than yesterday) Wound/Incision: Yes: Other 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: Yes: Alert, Oriented Psychiatric: Yes: Alert, Oriented Labs: CBC, BMP 04/11/17 07:30 04/11/17 07:30 INR, PTT INR 1.26 (0.82-1.09) H 04/10/17 12:18 Assessment/Plan drug abuse knee collection r/o abscess of the knee joint methadone use r/o osteo plan ortho needs to evaluate the patient might need drainage will do mri of the leg rest act abx
[2017-04-11] MEDS: LISINOPRIL 20 MG TABLET (FP) PO SCH (11:07)
[2017-04-11] MEDS: RANITIDINE HCL 150 MG TABLET (FP) PO SCH ×2 (11:07→21:44)
[2017-04-11] MEDS: VANCOMYCIN 1,250 MG in DEXTROSE 5%-WATER - 250 ML IVPB SCH ×2 (11:08→13:26)
[2017-04-11] MEDS: HEPARIN NA (PORCINE) 5,000 UNITS/ML 1ML VIAL SQ SCH ×2 (11:08→21:24)
[2017-04-11] MEDS: PIPERACILLIN/TAZOB 3.375 GM 50 ML IVPB SCH ×4 (11:08→18:54)
[2017-04-11 16:00] LABS: GLUCOSE,SYNOVIAL FLUID 21 mg/dL
[2017-04-11 16:29] LABS: TOTAL PROTEIN,SYNOVIAL FLUID 2 gm/dL
[2017-04-11] MEDS ORDERED: KETOROLAC TROMETHAMINE 30 MG/1 ML VIAL IVPB SCH (19:00)
[2017-04-11] MEDS: morphine CARPU-JECT 2 MG/1 ML DISP.SYRIN IVPUSH PRN (21:39)
[2017-04-11] MEDS: INSULIN DETEMIR 100 UNITS/ML MDV SQ SCH (21:43)
--- NOTE | 2017-04-11 22:14 | PN ---
Progress Note, Physician History of Present Illness: Pt more awake and having increased pain Slight streaking above knee Pt unable to have MRI bc she had a coil placed in her neck about 1 yr ago S/p head trauma - Current Medication List Current Medications: Active Medications Heparin Sodium (Porcine) (Heparin -) 5,000 unit SQ BID [facility] Last Admin: 04/11/17 21:24 Dose: Not Given Piperacillin Sod/Tazobactam Sod (Zosyn 3.375gm Ivpb (Pre-Docked)) 50 mls @ 100 mls/hr IVPB Q8H-IV [facility] PRN Reason: Protocol Last Admin: 04/11/17 18:54 Dose: 100 mls/hr Vancomycin HCl 1,250 mg/ (Sodium Chloride) 250 mls @ 166.667 mls/hr IVPB DAILY@ 1200 [facility] PRN Reason: Protocol Insulin Aspart (Novolog Vial Sliding Scale -) 1 vial SQ ACHS [facility] PRN Reason: Protocol Last Admin: 04/11/17 21:43 Dose: 12 units Insulin Detemir (Levemir Vial) 25 units SQ HS [facility] Last Admin: 04/11/17 21:43 Dose: 25 units Lisinopril (Prinivil) 20 mg PO DAILY [facility] Last Admin: 04/11/17 11:07 Dose: 20 mg Morphine Sulfate (Morphine Injection -) 2 mg IVPUSH Q4H PRN PRN Reason: PAIN Last Admin: 04/11/17 21:39 Dose: 2 mg Ranitidine HCl (Zantac -) 150 mg PO BID [facility] Last Admin: 04/11/17 21:44 Dose: 150 mg - Objective Vital Signs: Vital Signs Temperature 98.8 F 04/11/17 18:00 Pulse Rate 98 H 04/11/17 18:00 Respiratory Rate 18 04/11/17 18:00 Blood Pressure 151/89 04/11/17 18:00 O2 Sat by Pulse Oximetry (%) 94 L 04/11/17 20:25 Constitutional: Yes: Anxious Eyes: Yes: WNL HENT: Yes: WNL Neck: Yes: Supple Cardiovascular: Yes: WNL, Regular Rate and Rhythm Respiratory: Yes: WNL, Regular, CTA Bilaterally Gastrointestinal: Yes: WNL, Normal Bowel Sounds, Soft Extremities: Yes: Other (RLE (+) erythema Collection on rt knee (+) ulcer rt foot) Labs: CBC, BMP 04/11/17 07:30 04/11/17 07:30 INR, PTT INR 1.26 (0.82-1.09) H 04/10/17 12:18 Problem List - Problems (1) Cellulitis Assessment/Plan: Cont IV zosyn/vanco/ceftriaxone ID consult appreciated Ortho consulted Follow cultures Unable to do MRI due to coil in her head from prior surgery Code(s): L03.90 - CELLULITIS, UNSPECIFIED Qualifiers: Site of cellulitis: extremity Site of cellulitis of extremity: lower extremity Laterality: right Qualified Code(s): L03.115 - Cellulitis of right lower limb (2) Hypertension Assessment/Plan: Cont lisinopril Code(s): I10 - ESSENTIAL (PRIMARY) HYPERTENSION Qualifiers: Hypertension type: essential hypertension Qualified Code(s): I10 - Essential (primary) hypertension (3) Diabetes Assessment/Plan: Cont levemir/novolog Cont sliding scale Code(s): E11.9 - TYPE 2 DIABETES MELLITUS WITHOUT COMPLICATIONS (4) Substance abuse Assessment/Plan: Psych consult Code(s): F19.10 - OTHER PSYCHOACTIVE SUBSTANCE ABUSE, UNCOMPLICATED (5) GERD (gastroesophageal reflux disease) Assessment/Plan: Cont ranitidine Code(s): K21.9 - GASTRO-ESOPHAGEAL REFLUX DISEASE WITHOUT ESOPHAGITIS Qualifiers: Esophagitis presence: without esophagitis Qualified Code(s): K21.9 - Gastro-esophageal reflux disease without esophagitis
--- NOTE | 2017-04-12 00:06 | PN ---
Mental Health Exam - Mental Status Exam Alert and Oriented to: Time, Place, Person Cognitive Function: Grossly Intact Patient Appearance: Unkempt, Disheveled Mood: Hopeful Affect: Appropriate, Mood Congruent Patient Behavior: Fatigued Speech Pattern: Clear Voice Loudness: Normal Thought Process: Intact, Goal Oriented Thought Disorder: Not Present Hallucinations: None Suicidal Ideation: None Homicidal Ideation: None Insight/Judgement: Fair Sleep: Difficulty falling asleep Appetite: Weight loss Muscle strength/Tone: Normal Gait/Station: Normal
--- NOTE | 2017-04-12 00:12 | PN ---
Progress Note (short form) - Note Progress Note: See Client 46y0 female resting in bed, tranferred from [facility] with cellutitus , Hx HTN, DM, poly Substance us alchol is drug of choice, GERD. Drinkingh more severe since of possible od at [facility] waiting room?? last year. 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 Has 3 rehab in past 11 months. urine tox pos for opiates, negative for methadone. Not taking rx of remeron, trazadone or seroquel. Agreeable to Neurontin 300mg po tid that will assist in pain relief and some mood control, sleep also. Thanks for consult
[2017-04-12] MEDS: PIPERACILLIN/TAZOB 3.375 GM 50 ML IVPB SCH ×4 (01:28→17:47)
[2017-04-12] MEDS: morphine CARPU-JECT 2 MG/1 ML DISP.SYRIN IVPUSH PRN ×4 (04:08→21:25)
[2017-04-12] MEDS ORDERED: INSULIN (NOVOLOG) ASPART 100 UNITS/ML 10ML VIAL ONE ×3 (06:14→21:24)
[2017-04-12] MEDS: INSULIN SLIDING SCALE (NOVOLOG) 1 VIAL SQ SCH ×4 (06:15→21:24)
[2017-04-12 07:17] LABS: BASOPHIL 0.1 % (0-2.0); MCH 30.8 pg (25.7-33.7); MCHC 33.9 g/dl (32.0-36.0); MEAN CELL VOLUME 90.8 fl (80-96); MEAN PLT VOLUME 7.3 fl (7.5-11.1); NEUTROPHILS 60.3 % (42.8-82.8); PLATELET COUNT 186 K/MM3 (134-434); RDW 15.9 % (11.6-15.6); WHITE BLOOD COUNT 5.7 K/mm3 (4.0-10.0)
[2017-04-12 07:55] LABS: ALBUMIN 1.9 g/dl (3.4-5.0); ANION GAP 12 (8-16); BILIRUBIN,TOTAL 0.4 mg/dL (0.2-1.0); CALCIUM 7.9 mg/dL (8.5-10.1); CO2 22 mmol/L (21-32); COCKROFT - GAULT 164.5005; CREATININE 0.5 mg/dL (0.55-1.02); SGOT/AST 20 U/L (15-37); SGPT/ALT 27 U/L (12-78); TOT PROT 6.2 g/dl (6.4-8.2)
[2017-04-12 07:57] LABS: ALK PHOS 246 U/L (45-117)
[2017-04-12] MEDS ORDERED: PT OWN MED DRAWER 7, Y5N ONE (08:20)
[2017-04-12 09:04] LABS: GLUCOSE,RANDOM 323 mg/dL (74-106)
--- NOTE | 2017-04-12 09:23 | CON.ORTH ---
Consult Consult Specialty:: ortho - History of Present Illness History of Present Illness: 46 yo female states she fell and scraped r knee. She co pain and redness to right knee. Was admitted to [facility]. Was called this am to see patient for "right knee only" per ID request to "ro intraarticular involvement" . She is also being treated by other docs for foot and I was not consulted for foot. Pt and nurse state there has been significant improvement in right knee since yesterday when abx were changed. has been afebrile. - History Source History Provided By: Patient, Medical Record Limitations to Obtaining History: Poor Historian - Past Medical History Cardio/Vascular: Yes: HTN ...LMP: 03/31/17 ...: No Psych: Yes: Other (Substance abuse) - Alcohol/Substance Use Hx Alcohol Use: Yes - Smoking History Smoking history: Never smoked Have you smoked in the past 12 months: No Aproximately how many cigarettes per day: 0 Home Medications - Allergies Allergies/Adverse Reactions: Allergies Allergy/AdvReac Type Severity Reaction Status Date / Time shellfish derived Allergy Severe Hives Verified 04/10/17 11:13 strawberry Allergy Severe Hives Verified 04/10/17 11:13 No Known Drug Allergies Allergy Verified 04/10/17 11:13 - Home Medications Home Medications: Ambulatory Orders Insulin Sliding Scale [Novolog Vial Sliding Scale -] 0 units SQ TIDAC 05/30/16 Ibuprofen [Motrin -] 800 mg PO Q8H PRN #60 tablet 11/27/16 Insulin Glargine,Hum.rec.anlog [Lantus (10mL VIAL) -] 25 units SQ HS #1 vial Lisinopril [Prinivil] 20 mg PO DAILY #30 tablet 11/27/16 Ranitidine [Zantac -] 150 mg PO BID #60 tablet 11/27/16 Gabapentin [Neurontin -] 400 mg PO TID #90 cap 04/09/17 Mirtazapine [Remeron -] 15 mg PO HS #30 tab 04/09/17 Trazodone HCl [Desyrel -] 200 mg PO HS #30 tablet 04/09/17 Family Disease History - Family Disease History Family Disease History: Diabetes: Grandparent (alcohol), Father, Mother, Other: Grandparent Physical Exam for Ortho Vital Signs: Vital Signs Temperature 97.5 F L 04/12/17 08:23 Pulse Rate 101 H 04/12/17 08:23 Respiratory Rate 20 04/12/17 08:23 Blood Pressure 138/89 04/12/17 08:23 O2 Sat by Pulse Oximetry (%) 94 L 04/11/17 20:25 Constitutional: Yes: No Distress Labs: CBC, BMP 04/12/17 06:25 04/12/17 06:25 INR, PTT INR 1.26 (0.82-1.09) H 04/10/17 12:18 Other Findings/Remarks: Right Knee: Mild edema and fullness over anterior pre patellar bursa. There is diffuse redness around this area measuring approx 5cm x 7cm. Mild tender to touch. No significant fluctuance. No drainage. Pt and nurse state much better than yesterday. There is NO joint effusion. There is no jointlline tenderness. No evidence of intraarticular involvement. Extensor mechanism intact. NVI D. No LN. Imaging - Results Other: Other (Xray right knee without fx or dl or other path finding US with some heterogenous signal in prepatellar bursa) Assessment/Plan IMPRESSION: Right knee cellulitis improving. No evidence of intra-articular involvement or osteomyelitis. Possible involvement of prepatellar bursa. RECOMMENDATION: Discussed dx and tx options with patient. At this time there is significant improvement and no evidence of intra-articular involvement. Therefor at this time would not recommend joint aspiration or ID of the pre-patellar bursa. Will fu exam and if an area of abcess becomes evident will perform ID. Rec cont IV abx per ID.
[2017-04-12] MEDS: HEPARIN NA (PORCINE) 5,000 UNITS/ML 1ML VIAL SQ SCH ×2 (10:19→21:25)
[2017-04-12] MEDS: LISINOPRIL 20 MG TABLET (FP) PO SCH (10:40)
[2017-04-12] MEDS: RANITIDINE HCL 150 MG TABLET (FP) PO SCH ×2 (10:40→21:24)
[2017-04-12] MEDS: VANCOMYCIN 1,250 MG in SODIUM CHLORIDE 250 ML IVPB SCH (12:06)
--- NOTE | 2017-04-12 15:11 | PN ---
Progress Note, Physician History of Present Illness: Pt still having pain - Current Medication List Current Medications: Active Medications Heparin Sodium (Porcine) (Heparin -) 5,000 unit SQ BID [facility] Last Admin: 04/12/17 10:19 Dose: Not Given Piperacillin Sod/Tazobactam Sod (Zosyn 3.375gm Ivpb (Pre-Docked)) 50 mls @ 100 mls/hr IVPB Q8H-IV [facility] PRN Reason: Protocol Last Admin: 04/12/17 11:22 Dose: 100 mls/hr Vancomycin HCl 1,250 mg/ (Sodium Chloride) 250 mls @ 166.667 mls/hr IVPB DAILY@ 1200 [facility] PRN Reason: Protocol Last Admin: 04/12/17 12:06 Dose: 166.667 mls/hr Insulin Aspart (Novolog Vial Sliding Scale -) 1 vial SQ ACHS [facility] PRN Reason: Protocol Last Admin: 04/12/17 12:08 Dose: 12 units Insulin Detemir (Levemir Vial) 25 units SQ HS [facility] Last Admin: 04/11/17 21:43 Dose: 25 units Lisinopril (Prinivil) 20 mg PO DAILY [facility] Last Admin: 04/12/17 10:40 Dose: 20 mg Morphine Sulfate (Morphine Injection -) 2 mg IVPUSH Q6H PRN PRN Reason: PAIN Ranitidine HCl (Zantac -) 150 mg PO BID [facility] Last Admin: 04/12/17 10:40 Dose: 150 mg - Objective Vital Signs: Vital Signs Temperature 97.5 F L 04/12/17 08:23 Pulse Rate 101 H 04/12/17 08:23 Respiratory Rate 20 04/12/17 08:23 Blood Pressure 138/89 04/12/17 08:23 O2 Sat by Pulse Oximetry (%) 94 L 04/12/17 09:00 Constitutional: Yes: Anxious HENT: Yes: WNL Neck: Yes: WNL, Supple Cardiovascular: Yes: WNL, Regular Rate and Rhythm Respiratory: Yes: WNL, Regular, CTA Bilaterally Gastrointestinal: Yes: WNL, Normal Bowel Sounds, Soft Extremities: Yes: Other (Rt open lesion w/ decreases redness RLE less erythema) Labs: CBC, BMP 04/12/17 06:25 04/12/17 11:55 INR, PTT INR 1.26 (0.82-1.09) H 04/10/17 12:18 Problem List - Problems (1) Cellulitis Code(s): L03.90 - CELLULITIS, UNSPECIFIED Qualifiers: Site of cellulitis: extremity Site of cellulitis of extremity: lower extremity Laterality: right Qualified Code(s): L03.115 - Cellulitis of right lower limb (2) Hypertension Code(s): I10 - ESSENTIAL (PRIMARY) HYPERTENSION Qualifiers: Hypertension type: essential hypertension Qualified Code(s): I10 - Essential (primary) hypertension (3) Diabetes Code(s): E11.9 - TYPE 2 DIABETES MELLITUS WITHOUT COMPLICATIONS (4) Substance abuse Code(s): F19.10 - OTHER PSYCHOACTIVE SUBSTANCE ABUSE, UNCOMPLICATED (5) GERD (gastroesophageal reflux disease) Code(s): K21.9 - GASTRO-ESOPHAGEAL REFLUX DISEASE WITHOUT ESOPHAGITIS Qualifiers: Esophagitis presence: without esophagitis Qualified Code(s): K21.9 - Gastro-esophageal reflux disease without esophagitis
[2017-04-12] MEDS: metFORMIN HCL 500 MG TABLET (FP) PO SCH ×2 (16:27→16:41)
[2017-04-12] MEDS ORDERED: morphine CARPU-JECT 2 MG/1 ML DISP.SYRIN IVPUSH ONE (16:45)
--- NOTE | 2017-04-12 18:25 | PN ---
Progress Note, Physician History of Present Illness: doing well no issues leg looks much better - Current Medication List Current Medications: Active Medications Heparin Sodium (Porcine) (Heparin -) 5,000 unit SQ BID [facility] Last Admin: 04/12/17 10:19 Dose: Not Given Piperacillin Sod/Tazobactam Sod (Zosyn 3.375gm Ivpb (Pre-Docked)) 50 mls @ 100 mls/hr IVPB Q8H-IV [facility] PRN Reason: Protocol Last Admin: 04/12/17 17:47 Dose: 100 mls/hr Vancomycin HCl 1,250 mg/ (Sodium Chloride) 250 mls @ 166.667 mls/hr IVPB DAILY@ 1200 [facility] PRN Reason: Protocol Last Admin: 04/12/17 12:06 Dose: 166.667 mls/hr Insulin Aspart (Novolog Vial Sliding Scale -) 1 vial SQ ACHS [facility] PRN Reason: Protocol Last Admin: 04/12/17 16:27 Dose: 12 units Insulin Detemir (Levemir Vial) 35 units SQ HS [facility] Lisinopril (Prinivil) 20 mg PO DAILY [facility] Last Admin: 04/12/17 10:40 Dose: 20 mg Metformin HCl (Glucophage -) 1,000 mg PO BID@0700,1630 [facility] Last Admin: 04/12/17 16:41 Dose: 1,000 mg Morphine Sulfate (Morphine Injection -) 2 mg IVPUSH Q6H PRN PRN Reason: PAIN Ranitidine HCl (Zantac -) 150 mg PO BID [facility] Last Admin: 04/12/17 10:40 Dose: 150 mg - Objective Vital Signs: Vital Signs Temperature 97.5 F L 04/12/17 08:23 Pulse Rate 101 H 04/12/17 08:23 Respiratory Rate 20 04/12/17 08:23 Blood Pressure 138/89 04/12/17 08:23 O2 Sat by Pulse Oximetry (%) 94 L 04/12/17 09:00 Constitutional: Yes: Calm, Mild Distress Cardiovascular: Yes: Regular Rate and Rhythm Respiratory: Yes: Regular, CTA Bilaterally Gastrointestinal: Yes: Normal Bowel Sounds, Soft Musculoskeletal: Yes: Other Extremities: Yes: Erythema, Other (tenderness of the leg) Edema: LLE: 1+ Integumentary: Yes: Erythema Wound/Incision: Yes: Clean/Dry, Open to air 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: Yes: Alert, Oriented Psychiatric: Yes: Alert, Oriented Labs: CBC, BMP 04/12/17 06:25 04/12/17 11:55 INR, PTT INR 1.26 (0.82-1.09) H 04/10/17 12:18 Assessment/Plan drug abuse knee collection r/o abscess of the knee joint methadone use r/o osteo plan ortho note noted awaiting mri of the leg if mri is not done will need ct scan to evaluate the joint continue elevation of the leg
[2017-04-12] MEDS: INSULIN DETEMIR 100 UNITS/ML MDV SQ SCH (21:25)
[2017-04-13] MEDS: morphine CARPU-JECT 2 MG/1 ML DISP.SYRIN IVPUSH PRN ×4 (02:44→22:19)
[2017-04-13] MEDS: PIPERACILLIN/TAZOB 3.375 GM 50 ML IVPB SCH ×3 (02:44→17:38)
[2017-04-13] MEDS ORDERED: INSULIN (NOVOLOG) ASPART 100 UNITS/ML 10ML VIAL ONE ×2 (06:50→21:08)
[2017-04-13] MEDS: INSULIN SLIDING SCALE (NOVOLOG) 1 VIAL SQ SCH ×4 (06:51→21:15)
[2017-04-13] MEDS: metFORMIN HCL 500 MG TABLET (FP) PO SCH ×2 (06:51→16:53)
[2017-04-13] MEDS: HEPARIN NA (PORCINE) 5,000 UNITS/ML 1ML VIAL SQ SCH ×2 (09:57→21:13)
[2017-04-13] MEDS: LISINOPRIL 20 MG TABLET (FP) PO SCH (09:58)
[2017-04-13] MEDS: RANITIDINE HCL 150 MG TABLET (FP) PO SCH ×2 (09:58→22:20)
[2017-04-13] MEDS: VANCOMYCIN 1,250 MG in SODIUM CHLORIDE 250 ML IVPB SCH (11:41)
--- NOTE | 2017-04-13 12:10 | PN ---
Progress Note, Physician History of Present Illness: stable swelling decreasing awaiting for imaging studies - Current Medication List Current Medications: Active Medications Heparin Sodium (Porcine) (Heparin -) 5,000 unit SQ BID [facility] Last Admin: 04/13/17 09:57 Dose: Not Given Piperacillin Sod/Tazobactam Sod (Zosyn 3.375gm Ivpb (Pre-Docked)) 50 mls @ 100 mls/hr IVPB Q8H-IV [facility] PRN Reason: Protocol Last Admin: 04/13/17 09:58 Dose: 100 mls/hr Vancomycin HCl 1,250 mg/ (Sodium Chloride) 250 mls @ 166.667 mls/hr IVPB DAILY@ 1200 [facility] PRN Reason: Protocol Last Admin: 04/13/17 11:41 Dose: 166.667 mls/hr Insulin Aspart (Novolog Vial Sliding Scale -) 1 vial SQ ACHS [facility] PRN Reason: Protocol Last Admin: 04/13/17 11:18 Dose: 10 units Insulin Detemir (Levemir Vial) 35 units SQ HS [facility] Last Admin: 04/12/17 21:25 Dose: 35 units Lisinopril (Prinivil) 20 mg PO DAILY [facility] Last Admin: 04/13/17 09:58 Dose: 20 mg Metformin HCl (Glucophage -) 1,000 mg PO BID@0700,1630 [facility] Last Admin: 04/13/17 06:51 Dose: 1,000 mg Morphine Sulfate (Morphine Injection -) 2 mg IVPUSH Q6H PRN PRN Reason: PAIN Last Admin: 04/13/17 08:42 Dose: 2 mg Ranitidine HCl (Zantac -) 150 mg PO BID [facility] Last Admin: 04/13/17 09:58 Dose: 150 mg - Objective Vital Signs: Vital Signs Temperature 98.3 F 04/13/17 09:55 Pulse Rate 104 H 04/13/17 09:55 Respiratory Rate 18 04/13/17 09:55 Blood Pressure 137/93 04/13/17 09:55 O2 Sat by Pulse Oximetry (%) 95 04/12/17 20:26 Constitutional: Yes: Calm, Mild Distress Cardiovascular: Yes: Regular Rate and Rhythm Respiratory: Yes: Regular, CTA Bilaterally Gastrointestinal: Yes: Normal Bowel Sounds, Soft Musculoskeletal: Yes: Other Extremities: Yes: Other 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: Yes: Alert, Oriented Psychiatric: Yes: Alert, Oriented Labs: CBC, BMP 04/12/17 06:25 04/12/17 11:55 INR, PTT INR 1.26 (0.82-1.09) H 04/10/17 12:18 Assessment/Plan drug abuse knee collection r/o abscess of the knee joint methadone use r/o osteo plan ortho note noted still waiting for imaging studies continue abx will check vanco trough
--- NOTE | 2017-04-13 13:57 | CONSULT ---
Consult Consult Specialty:: endocrine Referred by:: dr.rocco hess Reason for Consultation:: iddm - History of Present Illness Chief Complaint: high sugars infection in knee History of Present Illness: 46 y female pmh iddm type 1 has infection rle,high blood sugars frequent elevated blood sugars,denies hypoglycemia,cp sob - History Source History Provided By: Patient - Past Medical History Cardio/Vascular: Yes: HTN Gastrointestinal: Yes: GERD ...LMP: 03/31/17 ...: No Psych: Yes: Other (Substance abuse) - Alcohol/Substance Use Hx Alcohol Use: Yes - Smoking History Smoking history: Never smoked Have you smoked in the past 12 months: No Aproximately how many cigarettes per day: 0 Home Medications - Allergies Allergies/Adverse Reactions: Allergies Allergy/AdvReac Type Severity Reaction Status Date / Time shellfish derived Allergy Severe Hives Verified 04/10/17 11:13 strawberry Allergy Severe Hives Verified 04/10/17 11:13 No Known Drug Allergies Allergy Verified 04/10/17 11:13 - Home Medications Home Medications: Ambulatory Orders Insulin Sliding Scale [Novolog Vial Sliding Scale -] 0 units SQ TIDAC 05/30/16 Ibuprofen [Motrin -] 800 mg PO Q8H PRN #60 tablet 11/27/16 Insulin Glargine,Hum.rec.anlog [Lantus (10mL VIAL) -] 25 units SQ HS #1 vial Lisinopril [Prinivil] 20 mg PO DAILY #30 tablet 11/27/16 Ranitidine [Zantac -] 150 mg PO BID #60 tablet 11/27/16 Gabapentin [Neurontin -] 400 mg PO TID #90 cap 04/09/17 Mirtazapine [Remeron -] 15 mg PO HS #30 tab 04/09/17 Trazodone HCl [Desyrel -] 200 mg PO HS #30 tablet 04/09/17 Family Disease History - Family Disease History Family Disease History: Diabetes: Grandparent (alcohol), Father, Mother, Other: Grandparent Review of Systems - Review of Systems Constitutional: reports: Lethargy Eyes: reports: No Symptoms HENT: reports: No Symptoms Neck: reports: Tenderness Cardiovascular: reports: No Symptoms Respiratory: reports: No Symptoms Gastrointestinal: reports: Bloating Genitourinary: reports: No Symptoms Breasts: reports: No Symptoms Reported Musculoskeletal: reports: Back Pain, Joint Swelling, Muscle Cramps Integumentary: reports: No Symptoms 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: reports: Weakness Physical Exam Vital Signs: Vital Signs Temperature 98.3 F 04/13/17 13:48 Pulse Rate 94 H 04/13/17 13:48 Respiratory Rate 18 04/13/17 09:55 Blood Pressure 119/73 04/13/17 13:48 O2 Sat by Pulse Oximetry (%) 95 04/12/17 20:26 Constitutional: Yes: Anxious Eyes: Yes: EOM Intact HENT: Yes: Normocephalic Neck: Yes: Trachea Midline Cardiovascular: Yes: Regular Rate and Rhythm Respiratory: Yes: CTA Bilaterally Gastrointestinal: Yes: Normal Bowel Sounds ...Rectal Exam: Yes: Deferred Renal/: Yes: WNL Musculoskeletal: Yes: Muscle Pain, Muscle Weakness Edema: Yes Edema: RLE: Trace Peripheral Pulses WNL: Yes Integumentary: Yes: Erythema, Rash, Venous Stasis Changes Wound/Incision: Yes: Clean/Dry 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: Yes: Alert, Oriented Labs: CBC, BMP 04/12/17 06:25 04/12/17 11:55 Problem List - Problems (1) Diabetes Code(s): E11.9 - TYPE 2 DIABETES MELLITUS WITHOUT COMPLICATIONS (2) Diabetes mellitus, insulin dependent (IDDM), uncontrolled Code(s): E10.65 - TYPE 1 DIABETES MELLITUS WITH HYPERGLYCEMIA Assessment/Plan Current Active Problems Cellulitis (Acute) Diabetes (Acute) Sepsis (Acute) Substance abuse (Acute) iddm uncontrolled sepsis knee infection hyperglycemia Laboratory Results - last 24 hr 04/12/17 04/13/17 04/13/17 21:21 06:48 11:14 POC Glucometer 485 344 376 Laboratory Tests 04/11/17 04/12/17 04/12/17 07:30 06:25 06:25 WBC 5.7 RBC 4.07 Hgb 12.6 Hct 37.0 MCV 90.8 MCHC 33.9 Plt Count 186 Neutrophils % 60.3 Sodium 136 Potassium 3.9 Chloride 102 Carbon Dioxide 22 Anion Gap 12 Creatinine 0.5 L D Creat Clearance w eGFR > 60 POC Glucometer Random Glucose 323 H* D Hemoglobin A1c % 11.2 H D 04/12/17 21:21 WBC RBC Hgb Hct MCV MCHC Plt Count Neutrophils % Sodium Potassium Chloride Carbon Dioxide Anion Gap Creatinine Creat Clearance w eGFR POC Glucometer 485 Random Glucose Hemoglobin A1c % plan: Current Medications Generic Name Dose Route Start Last Admin Trade Name Alex PRN Reason Stop Dose Admin Heparin Sodium (Porcine) 5,000 unit 04/10/17 22:00 04/13/17 09:57 Heparin - SQ Not Given BID [facility] Piperacillin Sod/Tazobactam Sod 50 mls @ 100 mls/hr 04/11/17 11:00 04/13/17 09: 58 Zosyn 3.375gm Ivpb (Pre-Docked) IVPB 100 mls/hr Q8H-IV [facility] Administration Protocol Vancomycin HCl 1,250 mg/ 250 mls @ 166.667 mls/hr 04/12/17 12:00 04/13/17 11:41 Sodium Chloride IVPB 166.667 mls/hr DAILY@1200 [facility] Administration Protocol Insulin Aspart 1 vial 04/13/17 12:55 Novolog Vial Sliding Scale - SQ ACHS [facility] Protocol Insulin Aspart 15 units 04/13/17 16:30 Novolog Mix 70/30 Vial SQ BIDAC [facility] Insulin Detemir 35 units 04/12/17 15:13 04/12/17 21:25 Levemir Vial SQ 35 units HS [facility] Administration Lisinopril 20 mg 04/11/17 10:00 04/13/17 09:58 Prinivil PO 20 mg DAILY [facility] Administration Metformin HCl 1,000 mg 04/12/17 16:30 04/13/17 06:51 Glucophage - PO 1,000 mg BID@0700,1630 [facility] Administration Morphine Sulfate 2 mg 04/12/17 14:29 04/13/17 08:42 Morphine Injection - IVPUSH 2 mg Q6H PRN Administration PAIN Ranitidine HCl 150 mg 04/10/17 22:00 04/13/17 09:58 Zantac - PO 150 mg BID [facility] Administration continue bgm ac hs will need dose titration and managed controlled sugars if compliance is agreed to with patient permission nutrition consultation
[2017-04-13] MEDS ORDERED: morphine CARPU-JECT 2 MG/1 ML DISP.SYRIN IVPUSH ONE (14:00)
[2017-04-13] MEDS: INSULIN (NOVOLOG MIX 70/30) 100 UNITS/ML MDV SQ SCH (16:51)
--- NOTE | 2017-04-13 19:39 | PN ---
Progress Note (short form) - Note Progress Note: Feeling a little better. AF. R knee: decreased edema and redness (size and intensity). All still pre= patellar without joint involvement. now that the area has lessened the prepatellar bursa is better palpated. There is some boggyness which may represent an infected bursitis cxs of knee fluid (presumed, was taken by ER) negative Imp: RIght knee cellulitis improving, possible prepatellar infected bursitis. Plan: Discussed dx and tx options. Advised of poss of prepatellar abcess. Considered incision and drainage of bursa but since improving we decided to observe another day. If abcess evident tomorrow will recommend Incision and drainage. Again, there is no evidence of joint involvement or osteo.
--- NOTE | 2017-04-13 20:20 | PN ---
Progress Note, Physician History of Present Illness: Pt complains of increased pain in rt calf - Current Medication List Current Medications: Active Medications Heparin Sodium (Porcine) (Heparin -) 5,000 unit SQ BID [facility] Last Admin: 04/13/17 09:57 Dose: Not Given Piperacillin Sod/Tazobactam Sod (Zosyn 3.375gm Ivpb (Pre-Docked)) 50 mls @ 100 mls/hr IVPB Q8H-IV [facility] PRN Reason: Protocol Last Admin: 04/13/17 17:38 Dose: 100 mls/hr Vancomycin HCl 1,250 mg/ (Sodium Chloride) 250 mls @ 166.667 mls/hr IVPB DAILY@ 1200 [facility] PRN Reason: Protocol Last Admin: 04/13/17 11:41 Dose: 166.667 mls/hr Insulin Aspart (Novolog Vial Sliding Scale -) 1 vial SQ ACHS [facility] PRN Reason: Protocol Last Admin: 04/13/17 16:52 Dose: 10 unit Insulin Aspart (Novolog Mix 70/30 Vial) 15 units SQ BIDAC [facility] Last Admin: 04/13/17 16:51 Dose: 15 unit Insulin Detemir (Levemir Vial) 35 units SQ HS [facility] Last Admin: 04/12/17 21:25 Dose: 35 units Lisinopril (Prinivil) 20 mg PO DAILY [facility] Last Admin: 04/13/17 09:58 Dose: 20 mg Metformin HCl (Glucophage -) 1,000 mg PO BID@0700,1630 [facility] Last Admin: 04/13/17 16:53 Dose: 1,000 mg Morphine Sulfate (Morphine Injection -) 2 mg IVPUSH Q6H PRN PRN Reason: PAIN Last Admin: 04/13/17 17:30 Dose: 2 mg Ranitidine HCl (Zantac -) 150 mg PO BID [facility] Last Admin: 04/13/17 09:58 Dose: 150 mg - Objective Vital Signs: Vital Signs Temperature 98.3 F 04/13/17 13:48 Pulse Rate 94 H 04/13/17 13:48 Respiratory Rate 18 04/13/17 09:55 Blood Pressure 119/73 04/13/17 13:48 O2 Sat by Pulse Oximetry (%) 95 04/13/17 09:00 Constitutional: Yes: Anxious Eyes: Yes: WNL HENT: Yes: WNL Neck: Yes: Supple Cardiovascular: Yes: WNL, Regular Rate and Rhythm Respiratory: Yes: WNL, Regular, CTA Bilaterally Gastrointestinal: Yes: WNL, Normal Bowel Sounds, Soft Labs: CBC, BMP 04/12/17 06:25 04/13/17 16:59 INR, PTT INR 1.26 (0.82-1.09) H 04/10/17 12:18 Problem List - Problems (1) Cellulitis Assessment/Plan: Cont IV zosyn/vanco/ceftriaxone Follow cultures Due to more localizwed pain in rt calf today will check doppler of RLE to r/o DVT Pt is on prophylactic heparin Possible I&D in am as per ortho Code(s): L03.90 - CELLULITIS, UNSPECIFIED Qualifiers: Site of cellulitis: extremity Site of cellulitis of extremity: lower extremity Laterality: right Qualified Code(s): L03.115 - Cellulitis of right lower limb (2) Hypertension Assessment/Plan: Cont lisinopril Code(s): I10 - ESSENTIAL (PRIMARY) HYPERTENSION Qualifiers: Hypertension type: essential hypertension Qualified Code(s): I10 - Essential (primary) hypertension (3) Diabetes Assessment/Plan: Cont levemir/novolog Cont sliding scale Endo consult noted Code(s): E11.9 - TYPE 2 DIABETES MELLITUS WITHOUT COMPLICATIONS (4) Substance abuse Code(s): F19.10 - OTHER PSYCHOACTIVE SUBSTANCE ABUSE, UNCOMPLICATED (5) GERD (gastroesophageal reflux disease) Assessment/Plan: Cont ranitidine Code(s): K21.9 - GASTRO-ESOPHAGEAL REFLUX DISEASE WITHOUT ESOPHAGITIS Qualifiers: Esophagitis presence: without esophagitis Qualified Code(s): K21.9 - Gastro-esophageal reflux disease without esophagitis
[2017-04-13] MEDS: INSULIN DETEMIR 100 UNITS/ML MDV SQ SCH (21:20)
[2017-04-13] MEDS: CYCLOBENZAPRINE HCL 10 MG TABLET (FP) PO PRN (23:16)
[2017-04-14] MEDS: PIPERACILLIN/TAZOB 3.375 GM 50 ML IVPB SCH ×3 (01:02→18:04)
[2017-04-14] MEDS: morphine CARPU-JECT 2 MG/1 ML DISP.SYRIN IVPUSH PRN ×5 (02:19→21:33)
[2017-04-14] MEDS: INSULIN (NOVOLOG MIX 70/30) 100 UNITS/ML MDV SQ SCH ×2 (06:29→17:25)
[2017-04-14] MEDS: metFORMIN HCL 500 MG TABLET (FP) PO SCH ×2 (06:29→17:24)
[2017-04-14] MEDS: INSULIN SLIDING SCALE (NOVOLOG) 1 VIAL SQ SCH ×4 (06:29→21:51)
--- NOTE | 2017-04-14 08:05 | PN ---
Progress Note, Physician History of Present Illness: She is feeling a little better today. Was having some pain last night which caused some difficulty sleeping. Sitting up eating breakfast today. - Current Medication List Current Medications: Active Medications Cyclobenzaprine HCl (Flexeril -) 5 mg PO TID PRN PRN Reason: MUSCLE SPASMS Last Admin: 04/13/17 23:16 Dose: 5 mg Heparin Sodium (Porcine) (Heparin -) 5,000 unit SQ BID [facility] Last Admin: 04/13/17 21:13 Dose: Not Given Piperacillin Sod/Tazobactam Sod (Zosyn 3.375gm Ivpb (Pre-Docked)) 50 mls @ 100 mls/hr IVPB Q8H-IV [facility] PRN Reason: Protocol Last Admin: 04/14/17 01:02 Dose: 100 mls/hr Vancomycin HCl 1,250 mg/ (Sodium Chloride) 250 mls @ 166.667 mls/hr IVPB DAILY@ 1200 [facility] PRN Reason: Protocol Last Admin: 04/13/17 11:41 Dose: 166.667 mls/hr Insulin Aspart (Novolog Mix 70/30 Vial) 15 units SQ BIDAC [facility] Last Admin: 04/14/17 06:29 Dose: 15 unit Insulin Aspart (Novolog Vial Sliding Scale -) 1 vial SQ ACHS [facility] PRN Reason: Protocol Last Admin: 04/14/17 06:29 Dose: 12 units Insulin Detemir (Levemir Vial) 35 units SQ HS [facility] Last Admin: 04/13/17 21:20 Dose: 35 units Lisinopril (Prinivil) 20 mg PO DAILY [facility] Last Admin: 04/13/17 09:58 Dose: 20 mg Metformin HCl (Glucophage -) 1,000 mg PO BID@0700,1630 [facility] Last Admin: 04/14/17 06:29 Dose: 1,000 mg Morphine Sulfate (Morphine Injection -) 2 mg IVPUSH Q4H PRN PRN Reason: PAIN Last Admin: 04/14/17 07:37 Dose: 2 mg Ranitidine HCl (Zantac -) 150 mg PO BID [facility] Last Admin: 04/13/17 22:20 Dose: 150 mg - Objective Vital Signs: Vital Signs Temperature 98.4 F 04/13/17 21:58 Pulse Rate 99 H 04/13/17 21:58 Respiratory Rate 20 04/13/17 21:58 Blood Pressure 144/85 04/13/17 21:58 O2 Sat by Pulse Oximetry (%) 96 04/13/17 21:00 Constitutional: Yes: Well Nourished, No Distress, Calm HENT: Yes: Atraumatic, Normocephalic Extremities: Yes: Other (Right Knee: Area of erythema surrounding anterior aspect of knee. No drainage. tenderness along the prepatella bursa. There is some swelling of the soft tissue around the prepatella bursa. Smooth ROM of the knee. NVID.) Labs: INR, PTT INR 1.26 (0.82-1.09) H 04/10/17 12:18 Assessment/Plan #1 Right knee cellulitis, prepatellar bursitis -Infection appears to be improving, will continue to watch, consider I&D if it does not continue to improve -Continue ABX per ID
[2017-04-14 08:11] LABS: BASOPHIL 0.1 % (0-2.0); MCH 30.5 pg (25.7-33.7); MCHC 33.6 g/dl (32.0-36.0); MEAN CELL VOLUME 90.9 fl (80-96); MEAN PLT VOLUME 7.3 fl (7.5-11.1); NEUTROPHILS 45.8 % (42.8-82.8); PLATELET COUNT 193 K/MM3 (134-434)
[2017-04-14 08:38] LABS: ALBUMIN 1.9 g/dl (3.4-5.0); ANION GAP 13 (8-16); BILIRUBIN,TOTAL 0.4 mg/dL (0.2-1.0); CALCIUM 8.2 mg/dL (8.5-10.1); CO2 22 mmol/L (21-32); COCKROFT - GAULT 164.5005; CREATININE 0.5 mg/dL (0.55-1.02); SGOT/AST 28 U/L (15-37); SGPT/ALT 29 U/L (12-78); TOT PROT 6.2 g/dl (6.4-8.2)
[2017-04-14 08:40] LABS: ALK PHOS 220 U/L (45-117)
[2017-04-14 09:14] LABS: GLUCOSE,RANDOM 306 mg/dL (74-106)
[2017-04-14] MEDS: HEPARIN NA (PORCINE) 5,000 UNITS/ML 1ML VIAL SQ SCH ×2 (10:39→21:57)
[2017-04-14] MEDS: RANITIDINE HCL 150 MG TABLET (FP) PO SCH ×2 (10:42→21:41)
[2017-04-14] MEDS: LISINOPRIL 20 MG TABLET (FP) PO SCH (10:42)
[2017-04-14] MEDS ORDERED: PT OWN MED DRAWER 7, Y5N ONE (11:43)
[2017-04-14] MEDS ORDERED: INSULIN (NOVOLOG) ASPART 100 UNITS/ML 10ML VIAL ONE ×2 (11:44→17:05)
[2017-04-14] MEDS: VANCOMYCIN 1,250 MG in SODIUM CHLORIDE 250 ML IVPB SCH (11:50)
--- NOTE | 2017-04-14 16:43 | PN ---
Progress Note, Physician History of Present Illness: stable swelling decreasing knee improving - Current Medication List Current Medications: Active Medications Cyclobenzaprine HCl (Flexeril -) 5 mg PO TID PRN PRN Reason: MUSCLE SPASMS Last Admin: 04/13/17 23:16 Dose: 5 mg Heparin Sodium (Porcine) (Heparin -) 5,000 unit SQ BID [facility] Last Admin: 04/14/17 10:39 Dose: Not Given Piperacillin Sod/Tazobactam Sod (Zosyn 3.375gm Ivpb (Pre-Docked)) 50 mls @ 100 mls/hr IVPB Q8H-IV [facility] PRN Reason: Protocol Last Admin: 04/14/17 10:42 Dose: 100 mls/hr Vancomycin HCl 1,250 mg/ (Sodium Chloride) 250 mls @ 166.667 mls/hr IVPB DAILY@ 1200 [facility] PRN Reason: Protocol Last Admin: 04/14/17 11:50 Dose: 166.667 mls/hr Insulin Aspart (Novolog Mix 70/30 Vial) 15 units SQ BIDAC [facility] Last Admin: 04/14/17 06:29 Dose: 15 unit Insulin Aspart (Novolog Vial Sliding Scale -) 1 vial SQ ACHS [facility] PRN Reason: Protocol Last Admin: 04/14/17 11:51 Dose: 9 units Insulin Detemir (Levemir Vial) 35 units SQ HS [facility] Last Admin: 04/13/17 21:20 Dose: 35 units Lisinopril (Prinivil) 20 mg PO DAILY [facility] Last Admin: 04/14/17 10:42 Dose: 20 mg Metformin HCl (Glucophage -) 1,000 mg PO BID@0700,1630 [facility] Last Admin: 04/14/17 06:29 Dose: 1,000 mg Morphine Sulfate (Morphine Injection -) 2 mg IVPUSH Q4H PRN PRN Reason: PAIN Last Admin: 04/14/17 12:31 Dose: 2 mg Ranitidine HCl (Zantac -) 150 mg PO BID [facility] Last Admin: 04/14/17 10:42 Dose: 150 mg - Objective Vital Signs: Vital Signs Temperature 98.1 F 04/14/17 14:00 Pulse Rate 93 H 04/14/17 14:00 Respiratory Rate 20 04/14/17 14:00 Blood Pressure 118/74 04/14/17 14:00 O2 Sat by Pulse Oximetry (%) 96 04/13/17 21:00 Constitutional: Yes: No Distress, Calm Cardiovascular: Yes: Regular Rate and Rhythm Respiratory: Yes: Regular, CTA Bilaterally Gastrointestinal: Yes: Normal Bowel Sounds, Soft Musculoskeletal: Yes: Other Extremities: Yes: Other Integumentary: Yes: Erythema (knee joint improving) Wound/Incision: Yes: Open to air, Other 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: Yes: Alert, Oriented Psychiatric: Yes: Alert, Oriented Labs: CBC, BMP 04/14/17 07:10 04/14/17 07:10 INR, PTT INR 1.26 (0.82-1.09) H 04/10/17 12:18 Assessment/Plan drug abuse knee collection r/o abscess of the knee joint methadone use r/o osteo patient has metal in the spine cannot do mri will order ct scan of the leg plan ct scan of the leg ordered continue abx once we have the scan we will decide further rest ct as per primary all cx negative so far
[2017-04-14] MEDS ORDERED: INSULIN (NOVOLOG MIX 70/30) 100 UNITS/ML MDV SQ ONE (17:32)
--- NOTE | 2017-04-14 21:02 | PN ---
Progress Note, Physician History of Present Illness: Pt still w/ significant pain in RLE and morphine had to be increased to q4 - Current Medication List Current Medications: Active Medications Cyclobenzaprine HCl (Flexeril -) 5 mg PO TID PRN PRN Reason: MUSCLE SPASMS Last Admin: 04/13/17 23:16 Dose: 5 mg Gabapentin (Neurontin -) 400 mg PO TID [facility] Heparin Sodium (Porcine) (Heparin -) 5,000 unit SQ BID [facility] Last Admin: 04/14/17 10:39 Dose: Not Given Piperacillin Sod/Tazobactam Sod (Zosyn 3.375gm Ivpb (Pre-Docked)) 50 mls @ 100 mls/hr IVPB Q8H-IV [facility] PRN Reason: Protocol Last Admin: 04/14/17 18:04 Dose: 100 mls/hr Vancomycin HCl 1,250 mg/ (Sodium Chloride) 250 mls @ 166.667 mls/hr IVPB DAILY@ 1200 [facility] PRN Reason: Protocol Last Admin: 04/14/17 11:50 Dose: 166.667 mls/hr Insulin Aspart (Novolog Mix 70/30 Vial) 15 units SQ BIDAC [facility] Last Admin: 04/14/17 17:25 Dose: 15 unit Insulin Aspart (Novolog Vial Sliding Scale -) 1 vial SQ ACHS [facility] PRN Reason: Protocol Last Admin: 04/14/17 18:04 Dose: 15 units Insulin Detemir (Levemir Vial) 35 units SQ HS [facility] Last Admin: 04/13/17 21:20 Dose: 35 units Lisinopril (Prinivil) 20 mg PO DAILY [facility] Last Admin: 04/14/17 10:42 Dose: 20 mg Metformin HCl (Glucophage -) 1,000 mg PO BID@0700,1630 [facility] Last Admin: 04/14/17 17:24 Dose: 1,000 mg Morphine Sulfate (Morphine Injection -) 2 mg IVPUSH Q4H PRN PRN Reason: PAIN Last Admin: 04/14/17 17:17 Dose: 2 mg Ranitidine HCl (Zantac -) 150 mg PO BID [facility] Last Admin: 04/14/17 10:42 Dose: 150 mg - Objective Vital Signs: Vital Signs Temperature 98.1 F 04/14/17 14:00 Pulse Rate 93 H 04/14/17 14:00 Respiratory Rate 20 04/14/17 14:00 Blood Pressure 118/74 04/14/17 14:00 O2 Sat by Pulse Oximetry (%) 96 04/13/17 21:00 Constitutional: Yes: Well Nourished Eyes: Yes: WNL HENT: Yes: WNL Neck: Yes: Supple Cardiovascular: Yes: WNL, Regular Rate and Rhythm Respiratory: Yes: WNL, Regular, CTA Bilaterally Extremities: Yes: Other ((+) RLE/RT knee erythema) Labs: CBC, BMP 04/14/17 07:10 04/14/17 17:15 INR, PTT INR 1.26 (0.82-1.09) H 04/10/17 12:18 Problem List - Problems (1) Cellulitis Assessment/Plan: Cont IV zosyn/vanco/ceftriaxone Follow cultures Doppler of RLE negative for DVT Morphine dose increased Will add neurontin wc pt was taking at home she states CSpine xray showed radiopaque wiring in C1-C2 Will check ct scan knee Podiatry consult for RT foot wound Code(s): L03.90 - CELLULITIS, UNSPECIFIED Qualifiers: Site of cellulitis: extremity Site of cellulitis of extremity: lower extremity Laterality: right Qualified Code(s): L03.115 - Cellulitis of right lower limb (2) Hypertension Assessment/Plan: Cont lisinopril Code(s): I10 - ESSENTIAL (PRIMARY) HYPERTENSION Qualifiers: Hypertension type: essential hypertension Qualified Code(s): I10 - Essential (primary) hypertension (3) Diabetes Assessment/Plan: Cont levemir/novolog Cont sliding scale Pt noncomplaint w/ her diet Code(s): E11.9 - TYPE 2 DIABETES MELLITUS WITHOUT COMPLICATIONS (4) Substance abuse Code(s): F19.10 - OTHER PSYCHOACTIVE SUBSTANCE ABUSE, UNCOMPLICATED (5) GERD (gastroesophageal reflux disease) Code(s): K21.9 - GASTRO-ESOPHAGEAL REFLUX DISEASE WITHOUT ESOPHAGITIS Qualifiers: Esophagitis presence: without esophagitis Qualified Code(s): K21.9 - Gastro-esophageal reflux disease without esophagitis
[2017-04-14] MEDS: CYCLOBENZAPRINE HCL 10 MG TABLET (FP) PO PRN (21:41)
[2017-04-14] MEDS: GABAPENTIN 400 MG CAPSULE (FP) PO SCH (21:41)
[2017-04-14] MEDS: INSULIN DETEMIR 100 UNITS/ML MDV SQ SCH (21:59)
[2017-04-14] MEDS ORDERED: INSULIN (NOVOLOG) ASPART 100 UNITS/ML 10ML VIAL SQ ONE (22:00)
[2017-04-15] MEDS: morphine CARPU-JECT 2 MG/1 ML DISP.SYRIN IVPUSH PRN ×5 (01:26→21:04)
[2017-04-15] MEDS: PIPERACILLIN/TAZOB 3.375 GM 50 ML IVPB SCH ×3 (02:10→18:03)
[2017-04-15] MEDS: GABAPENTIN 400 MG CAPSULE (FP) PO SCH ×3 (06:27→21:20)
[2017-04-15] MEDS: INSULIN (NOVOLOG MIX 70/30) 100 UNITS/ML MDV SQ SCH ×2 (06:29→16:19)
[2017-04-15] MEDS ORDERED: INSULIN (NOVOLOG) ASPART 100 UNITS/ML 10ML VIAL ONE ×4 (06:31→21:23)
[2017-04-15] MEDS: INSULIN SLIDING SCALE (NOVOLOG) 1 VIAL SQ SCH ×4 (06:31→21:24)
[2017-04-15] MEDS: metFORMIN HCL 500 MG TABLET (FP) PO SCH ×2 (06:33→16:20)
--- NOTE | 2017-04-15 09:25 | PN ---
Progress Note, Physician History of Present Illness: The knee continues to improve. She still has pain if she tries to walk on it. CT scan of the knee ordered. - Current Medication List Current Medications: Active Medications Cyclobenzaprine HCl (Flexeril -) 5 mg PO TID PRN PRN Reason: MUSCLE SPASMS Last Admin: 04/14/17 21:41 Dose: 5 mg Gabapentin (Neurontin -) 400 mg PO TID [facility] Last Admin: 04/15/17 06:27 Dose: 400 mg Heparin Sodium (Porcine) (Heparin -) 5,000 unit SQ BID [facility] Last Admin: 04/14/17 21:57 Dose: Not Given Piperacillin Sod/Tazobactam Sod (Zosyn 3.375gm Ivpb (Pre-Docked)) 50 mls @ 100 mls/hr IVPB Q8H-IV [facility] PRN Reason: Protocol Last Admin: 04/15/17 02:10 Dose: 100 mls/hr Vancomycin HCl 1,250 mg/ (Sodium Chloride) 250 mls @ 166.667 mls/hr IVPB DAILY@ 1200 [facility] PRN Reason: Protocol Last Admin: 04/14/17 11:50 Dose: 166.667 mls/hr Insulin Aspart (Novolog Mix 70/30 Vial) 15 units SQ BIDAC [facility] Last Admin: 04/15/17 06:29 Dose: 15 unit Insulin Aspart (Novolog Vial Sliding Scale -) 1 vial SQ ACHS [facility] PRN Reason: Protocol Last Admin: 04/15/17 06:31 Dose: 9 units Insulin Detemir (Levemir Vial) 35 units SQ HS [facility] Last Admin: 04/14/17 21:59 Dose: 35 units Lisinopril (Prinivil) 20 mg PO DAILY [facility] Last Admin: 04/14/17 10:42 Dose: 20 mg Metformin HCl (Glucophage -) 1,000 mg PO BID@0700,1630 [facility] Last Admin: 04/15/17 06:33 Dose: 1,000 mg Morphine Sulfate (Morphine Injection -) 2 mg IVPUSH Q4H PRN PRN Reason: PAIN Last Admin: 04/15/17 05:40 Dose: 2 mg Ranitidine HCl (Zantac -) 150 mg PO BID [facility] Last Admin: 04/14/17 21:41 Dose: 150 mg - Objective Vital Signs: Vital Signs Temperature 98.4 F 04/15/17 05:54 Pulse Rate 100 H 04/15/17 05:54 Respiratory Rate 20 04/15/17 05:54 Blood Pressure 132/87 04/15/17 05:54 O2 Sat by Pulse Oximetry (%) 96 04/14/17 22:00 Constitutional: Yes: Well Nourished, No Distress, Calm HENT: Yes: Atraumatic, Normocephalic Musculoskeletal: Yes: Other (Right knee: Cellulitis is improving, Tenderness over the prepatella bursa and surrounding area. The prepatella bursa is boggy but less than it was yesterday. Swelling improved. Pt can extend fully and flex knee 100 degress. NVID.) Psychiatric: Yes: Alert, Oriented Labs: CBC, BMP 04/14/17 07:10 04/14/17 23:15 INR, PTT INR 1.26 (0.82-1.09) H 04/10/17 12:18 Assessment/Plan #1 right knee cellulits -Discussed today's findings and treatment options. Discussed I&D of the knee but she would like to hold off for now because she is feeling better and wants to get the CT scan first. -Continue ABX -Will reassess tomorrow.
[2017-04-15] MEDS: HEPARIN NA (PORCINE) 5,000 UNITS/ML 1ML VIAL SQ SCH ×2 (11:21→21:21)
[2017-04-15] MEDS: RANITIDINE HCL 150 MG TABLET (FP) PO SCH ×2 (11:22→21:20)
[2017-04-15] MEDS: LISINOPRIL 20 MG TABLET (FP) PO SCH (11:22)
[2017-04-15] MEDS: VANCOMYCIN 1,250 MG in SODIUM CHLORIDE 250 ML IVPB SCH (11:23)
[2017-04-15] MEDS ORDERED: INSULIN (NOVOLOG MIX 70/30) 100 UNITS/ML MDV SQ ONE (16:42)
--- NOTE | 2017-04-15 17:07 | CONSULT ---
Consult - text type - Consultation Consultation Note: Podiatry Consultation: 46 year old IDDM F presented to ED for admission for R knee fluid collection, subsequently drained in ED. Ortho on the case for the knee. Found to have fever in ED. She does note that 1-2 weeks ago she stepped on a piece of glass from a beer bottle, subsequently removed it on her own. Reports removing the entire shard of glass. Developed a wound on the plantar forefoot subsequent to FB removal. Currently afebrile, VSS. PMHx: DM, GERD, HTN, polysubstance abuse Meds: noted in chart ALL: shellfish, strawberries WILMER: Pedal pulses 1/4 bilaterally, TG wnl, CFT brisk to all toes bilaterally. R foot sub-metatarsal head ulcer with hyperkeratotic borders, granular base, no probing to bone, no purulence, no fluctuance, no ascending cellulitis, no erythema, no signs of infection. Mild tenderness to palpation. No tenderness on ROM 2nd MTPJ. WBC: 4.0 ESR: 50 Blood cx: no growth CT scan: deformity base of proximal phalanx, likely related to old trauma; erosive changes 2nd MTPJ raises possibility of septic arthritis Imp: 46 year old DM F with R foot DFU 1. Excisional debridement R foot ulcer to subcutaneous tissue using #15 blade scalpel. No foreign body appreciated on inspection. 2. CT scan noted. Given clinically appearance, 2nd MTPJ septic arthritis highly unlikely. 3. Local wound care with bactroban + DSD daily to R foot 4. Recommend ordering plain film R foot to evaluate any presence of residual foreign body. 5. Upon discharge, march f/u with me in [facility]: [phone] 6. Thank you for the courtesy of this consultation. Elgin Hurst DPM
--- NOTE | 2017-04-15 18:37 | CONSULT ---
Consult Consult Specialty:: Pain Management - History of Present Illness Chief Complaint: Rt Knee and foot pain History of Present Illness: 46 yr old female with Rt Knee and rt foot pain s/p cellulitis s/p glass injury . Pain 09/09 , swelling, , difficulty in ambulation. - History Source History Provided By: Patient Limitations to Obtaining History: No Limitations - Past Medical History Cardio/Vascular: Yes: HTN, Other (DM ) Gastrointestinal: Yes: GERD ...LMP: 03/31/17 ...: No Psych: Yes: Other (Substance abuse) - Alcohol/Substance Use Hx Alcohol Use: Yes - Smoking History Smoking history: Never smoked Have you smoked in the past 12 months: No Aproximately how many cigarettes per day: 0 Home Medications - Allergies Allergies/Adverse Reactions: Allergies Allergy/AdvReac Type Severity Reaction Status Date / Time shellfish derived Allergy Severe Hives Verified 04/10/17 11:13 strawberry Allergy Severe Hives Verified 04/10/17 11:13 No Known Drug Allergies Allergy Verified 04/10/17 11:13 - Home Medications Home Medications: Ambulatory Orders Insulin Sliding Scale [Novolog Vial Sliding Scale -] 0 units SQ TIDAC 05/30/16 Ibuprofen [Motrin -] 800 mg PO Q8H PRN #60 tablet 11/27/16 Insulin Glargine,Hum.rec.anlog [Lantus (10mL VIAL) -] 25 units SQ HS #1 vial Lisinopril [Prinivil] 20 mg PO DAILY #30 tablet 11/27/16 Ranitidine [Zantac -] 150 mg PO BID #60 tablet 11/27/16 Gabapentin [Neurontin -] 400 mg PO TID #90 cap 04/09/17 Mirtazapine [Remeron -] 15 mg PO HS #30 tab 04/09/17 Trazodone HCl [Desyrel -] 200 mg PO HS #30 tablet 04/09/17 Family Disease History - Family Disease History Family Disease History: Diabetes: Grandparent (alcohol), Father, Mother, Other: Grandparent Review of Systems - Review of Systems Constitutional: reports: No Symptoms Eyes: reports: No Symptoms HENT: reports: No Symptoms Neck: reports: No Symptoms Cardiovascular: reports: No Symptoms Respiratory: reports: No Symptoms Gastrointestinal: reports: No Symptoms Genitourinary: reports: No Symptoms Musculoskeletal: reports: Other (Rt knee and right foot pain) 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: reports: No Symptoms Endocrine: reports: No Symptoms Physical Exam Vital Signs: Vital Signs Temperature 98.1 F 04/15/17 14:00 Pulse Rate 93 H 04/15/17 14:00 Respiratory Rate 20 04/15/17 14:00 Blood Pressure 132/87 04/15/17 05:54 O2 Sat by Pulse Oximetry (%) 96 04/14/17 22:00 Constitutional: Yes: Well Nourished Eyes: Yes: WNL HENT: Yes: WNL Neck: Yes: WNL Extremities: Yes: Erythema, Other (Rt knee - swelling+, redness + , dressing + rt foot) 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: Yes: WNL ...Motor Strength: WNL Psychiatric: Yes: WNL Labs: CBC, BMP 04/14/17 07:10 04/14/17 23:15 Current Medications Generic Name Dose Route Start Last Admin Trade Name Freq PRN Reason Stop Dose Admin Cyclobenzaprine HCl 5 mg 04/13/17 20:25 04/14/17 21:41 Flexeril - PO 5 mg TID PRN Administration MUSCLE SPASMS Gabapentin 400 mg 04/14/17 22:00 04/15/17 14:13 Neurontin - PO 400 mg TID SIRIA Administration Heparin Sodium (Porcine) 5,000 unit 04/10/17 22:00 04/15/17 11:21 Heparin - SQ Not Given BID SIRIA Piperacillin Sod/Tazobactam Sod 50 mls @ 100 mls/hr 04/11/17 11:00 04/15/17 18: 03 Zosyn 3.375gm Ivpb (Pre-Docked) IVPB 100 mls/hr Q8H-IV SIRIA Administration Protocol Vancomycin HCl 1,250 mg/ 250 mls @ 166.667 mls/hr 04/12/17 12:00 04/15/17 11:23 Sodium Chloride IVPB 166.667 mls/hr DAILY@1200 SIRIA Administration Protocol Insulin Aspart 15 units 04/13/17 16:30 04/15/17 16:19 Novolog Mix 70/30 Vial SQ 15 unit BIDAC SIRIA Administration Insulin Aspart 1 vial 04/14/17 00:09 04/15/17 16:18 Novolog Vial Sliding Scale - SQ 9 units ACHS SIRIA Administration Protocol Insulin Detemir 35 units 04/12/17 15:13 04/14/17 21:59 Levemir Vial SQ 35 units HS SIRIA Administration Lisinopril 20 mg 04/11/17 10:00 04/15/17 11:22 Prinivil PO 20 mg DAILY SIRIA Administration Metformin HCl 1,000 mg 04/12/17 16:30 04/15/17 16:20 Glucophage - PO 1,000 mg BID@0700,1630 SIRIA Administration Morphine Sulfate 2 mg 04/13/17 22:11 04/15/17 16:24 Morphine Injection - IVPUSH 2 mg Q4H PRN Administration PAIN Ranitidine HCl 150 mg 04/10/17 22:00 04/15/17 11:22 Zantac - PO 150 mg BID SIRIA Administration Assessment/Plan Discussed in detail and answered all questions. 1. continue current care. 2. MS contin 15 mg PO BID and continue IV morphine 2 mg IVP q4 hr prn . once pain get controlled after surgery. medicine should be d/c. Thanks for your kind referral. Shubham Walter MD [phone]
--- NOTE | 2017-04-15 20:59 | PN ---
Progress Note, Physician History of Present Illness: Pt still w/ significant pain in RLE wc has not improved - Current Medication List Current Medications: Active Medications Cyclobenzaprine HCl (Flexeril -) 5 mg PO TID PRN PRN Reason: MUSCLE SPASMS Last Admin: 04/14/17 21:41 Dose: 5 mg Gabapentin (Neurontin -) 400 mg PO TID [facility] Last Admin: 04/15/17 14:13 Dose: 400 mg Heparin Sodium (Porcine) (Heparin -) 5,000 unit SQ BID [facility] Last Admin: 04/15/17 11:21 Dose: Not Given Piperacillin Sod/Tazobactam Sod (Zosyn 3.375gm Ivpb (Pre-Docked)) 50 mls @ 100 mls/hr IVPB Q8H-IV SRIIA PRN Reason: Protocol Last Admin: 04/15/17 18:03 Dose: 100 mls/hr Vancomycin HCl 1,250 mg/ (Sodium Chloride) 250 mls @ 166.667 mls/hr IVPB DAILY@ 1200 [facility]IRIA PRN Reason: Protocol Last Admin: 04/15/17 11:23 Dose: 166.667 mls/hr Insulin Aspart (Novolog Mix 70/30 Vial) 15 units SQ BIDAC [facility] Last Admin: 04/15/17 16:19 Dose: 15 unit Insulin Aspart (Novolog Vial Sliding Scale -) 1 vial SQ ACHS [facility] PRN Reason: Protocol Last Admin: 04/15/17 16:18 Dose: 9 units Insulin Detemir (Levemir Vial) 35 units SQ HS [facility] Last Admin: 04/14/17 21:59 Dose: 35 units Lisinopril (Prinivil) 20 mg PO DAILY [facility] Last Admin: 04/15/17 11:22 Dose: 20 mg Metformin HCl (Glucophage -) 1,000 mg PO BID@0700,1630 [facility] Last Admin: 04/15/17 16:20 Dose: 1,000 mg Morphine Sulfate (Morphine Injection -) 2 mg IVPUSH Q4H PRN PRN Reason: PAIN Last Admin: 04/15/17 16:24 Dose: 2 mg Morphine Sulfate (Ms Contin -) 15 mg PO BID [facility] Ranitidine HCl (Zantac -) 150 mg PO BID [facility] Last Admin: 04/15/17 11:22 Dose: 150 mg - Objective Vital Signs: Vital Signs Temperature 98.1 F 04/15/17 14:00 Pulse Rate 93 H 04/15/17 14:00 Respiratory Rate 20 04/15/17 14:00 Blood Pressure 125/88 04/15/17 09:00 O2 Sat by Pulse Oximetry (%) 96 04/15/17 09:00 Constitutional: Yes: Anxious Eyes: Yes: WNL HENT: Yes: WNL Neck: Yes: WNL Cardiovascular: Yes: WNL, Regular Rate and Rhythm Respiratory: Yes: WNL, Regular, CTA Bilaterally Gastrointestinal: Yes: WNL, Normal Bowel Sounds, Soft Labs: CBC, BMP 04/14/17 07:10 04/14/17 23:15 INR, PTT INR 1.26 (0.82-1.09) H 04/10/17 12:18 Problem List - Problems (1) Cellulitis Assessment/Plan: Cont IV zosyn/vanco/ceftriaxone Follow cultures Doppler of RLE negative for DVT CT scan RLE showed cellulitis w/ distensionof prepatellar bursa ?possibility of infectious bursitis/abscess Further management as per ortho Pt seen by pain management and MS terrie was added I discussed w/ pt that hopefully she will not need prn morphine Code(s): L03.90 - CELLULITIS, UNSPECIFIED Qualifiers: Site of cellulitis: extremity Site of cellulitis of extremity: lower extremity Laterality: right Qualified Code(s): L03.115 - Cellulitis of right lower limb (2) Hypertension Assessment/Plan: Cont lisinopril Code(s): I10 - ESSENTIAL (PRIMARY) HYPERTENSION Qualifiers: Hypertension type: essential hypertension Qualified Code(s): I10 - Essential (primary) hypertension (3) Diabetes Assessment/Plan: Cont levemir/novolog Cont sliding scale Pt noncomplaint w/ her diet Code(s): E11.9 - TYPE 2 DIABETES MELLITUS WITHOUT COMPLICATIONS (4) Substance abuse Code(s): F19.10 - OTHER PSYCHOACTIVE SUBSTANCE ABUSE, UNCOMPLICATED (5) GERD (gastroesophageal reflux disease) Code(s): K21.9 - GASTRO-ESOPHAGEAL REFLUX DISEASE WITHOUT ESOPHAGITIS Qualifiers: Esophagitis presence: without esophagitis Qualified Code(s): K21.9 - Gastro-esophageal reflux disease without esophagitis
[2017-04-15] MEDS: INSULIN DETEMIR 100 UNITS/ML MDV SQ SCH (21:26)
[2017-04-15] MEDS: morphine SO4 SUSTAINED ACTING 15 MG TABLET.SA PO SCH (21:50)
--- NOTE | 2017-04-15 22:25 | PN ---
Progress Note, Physician History of Present Illness: patrient doing well only complaint is pain and more pain erythema and swelling of the knee looking better - Current Medication List Current Medications: Active Medications Cyclobenzaprine HCl (Flexeril -) 5 mg PO TID PRN PRN Reason: MUSCLE SPASMS Last Admin: 04/14/17 21:41 Dose: 5 mg Gabapentin (Neurontin -) 400 mg PO TID [facility] Last Admin: 04/15/17 21:20 Dose: 400 mg Heparin Sodium (Porcine) (Heparin -) 5,000 unit SQ BID [facility] Last Admin: 04/15/17 21:21 Dose: Not Given Piperacillin Sod/Tazobactam Sod (Zosyn 3.375gm Ivpb (Pre-Docked)) 50 mls @ 100 mls/hr IVPB Q8H-IV SIRIA PRN Reason: Protocol Last Admin: 04/15/17 18:03 Dose: 100 mls/hr Vancomycin HCl 1,250 mg/ (Sodium Chloride) 250 mls @ 166.667 mls/hr IVPB DAILY@ 1200 SIRIA PRN Reason: Protocol Last Admin: 04/15/17 11:23 Dose: 166.667 mls/hr Insulin Aspart (Novolog Mix 70/30 Vial) 15 units SQ BIDAC [facility] Last Admin: 04/15/17 16:19 Dose: 15 unit Insulin Aspart (Novolog Vial Sliding Scale -) 1 vial SQ ACHS [facility] PRN Reason: Protocol Last Admin: 04/15/17 21:24 Dose: 12 units Insulin Detemir (Levemir Vial) 35 units SQ HS [facility] Last Admin: 04/15/17 21:26 Dose: 35 units Lisinopril (Prinivil) 20 mg PO DAILY [facility] Last Admin: 04/15/17 11:22 Dose: 20 mg Metformin HCl (Glucophage -) 1,000 mg PO BID@0700,1630 [facility] Last Admin: 04/15/17 16:20 Dose: 1,000 mg Morphine Sulfate (Morphine Injection -) 2 mg IVPUSH Q4H PRN PRN Reason: PAIN Last Admin: 04/15/17 21:04 Dose: 2 mg Morphine Sulfate (Ms Contin -) 15 mg PO BID [facility] Last Admin: 04/15/17 21:50 Dose: 15 mg Ranitidine HCl (Zantac -) 150 mg PO BID [facility] Last Admin: 04/15/17 21:20 Dose: 150 mg - Objective Vital Signs: Vital Signs Temperature 98.1 F 04/15/17 14:00 Pulse Rate 93 H 04/15/17 14:00 Respiratory Rate 20 04/15/17 14:00 Blood Pressure 125/88 04/15/17 09:00 O2 Sat by Pulse Oximetry (%) 96 04/15/17 09:00 Constitutional: Yes: Calm, Mild Distress Cardiovascular: Yes: Regular Rate and Rhythm Respiratory: Yes: Regular, CTA Bilaterally Musculoskeletal: Yes: Other Extremities: Yes: Other Edema: LLE: Trace Integumentary: Yes: Erythema (improving knee erythema still present) 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: Yes: Alert, Oriented Psychiatric: Yes: Alert, Oriented Labs: CBC, BMP 04/14/17 07:10 04/14/17 23:15 INR, PTT INR 1.26 (0.82-1.09) H 04/10/17 12:18 - ....Imaging Cat Scan: Report Reviewed, Image Reviewed Assessment/Plan drug abuse knee collection r/o abscess of the knee joint 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
[2017-04-15] MEDS: VANCOMYCIN 1,250 MG in DEXTROSE 5%-WATER - 250 ML IVPB SCH (22:57)
[2017-04-16] MEDS: PIPERACILLIN/TAZOB 3.375 GM 50 ML IVPB SCH ×4 (01:56→18:00)
[2017-04-16] MEDS: morphine CARPU-JECT 2 MG/1 ML DISP.SYRIN IVPUSH PRN ×4 (01:58→21:02)
[2017-04-16] MEDS: metFORMIN HCL 500 MG TABLET (FP) PO SCH ×2 (06:48→16:44)
[2017-04-16] MEDS: GABAPENTIN 400 MG CAPSULE (FP) PO SCH ×2 (06:48→14:27)
[2017-04-16] MEDS: INSULIN (NOVOLOG MIX 70/30) 100 UNITS/ML MDV SQ SCH ×2 (06:51→16:39)
[2017-04-16] MEDS: INSULIN SLIDING SCALE (NOVOLOG) 1 VIAL SQ SCH ×4 (06:52→21:10)
[2017-04-16] MEDS ORDERED: INSULIN (NOVOLOG MIX 70/30) 100 UNITS/ML MDV SQ ONE ×2 (06:55→14:32)
[2017-04-16] MEDS: LISINOPRIL 20 MG TABLET (FP) PO SCH (10:19)
[2017-04-16] MEDS: morphine SO4 SUSTAINED ACTING 15 MG TABLET.SA PO SCH ×2 (10:19→21:49)
[2017-04-16] MEDS: RANITIDINE HCL 150 MG TABLET (FP) PO SCH ×2 (10:19→21:03)
[2017-04-16] MEDS: VANCOMYCIN 1,250 MG in DEXTROSE 5%-WATER - 250 ML IVPB SCH ×2 (10:20→23:09)
[2017-04-16] MEDS: HEPARIN NA (PORCINE) 5,000 UNITS/ML 1ML VIAL SQ SCH ×2 (10:34→21:04)
--- NOTE | 2017-04-16 11:43 | PN ---
Progress Note, Physician History of Present Illness: patrient doing well except pain no new issues - Current Medication List Current Medications: Active Medications Cyclobenzaprine HCl (Flexeril -) 5 mg PO TID PRN PRN Reason: MUSCLE SPASMS Last Admin: 04/14/17 21:41 Dose: 5 mg Gabapentin (Neurontin -) 400 mg PO TID [facility] Last Admin: 04/16/17 06:48 Dose: 400 mg Heparin Sodium (Porcine) (Heparin -) 5,000 unit SQ BID [facility] Last Admin: 04/16/17 10:34 Dose: 5,000 unit Piperacillin Sod/Tazobactam Sod (Zosyn 3.375gm Ivpb (Pre-Docked)) 50 mls @ 100 mls/hr IVPB Q8H-IV [facility]IRIA PRN Reason: Protocol Last Admin: 04/16/17 10:18 Dose: 100 mls/hr Vancomycin HCl 1,250 mg/ (Dextrose) 250 mls @ 250 mls/hr IVPB BID [facility] PRN Reason: Protocol Last Admin: 04/16/17 10:20 Dose: 250 mls/hr Insulin Aspart (Novolog Mix 70/30 Vial) 15 units SQ BIDAC [facility] Last Admin: 04/16/17 06:51 Dose: 15 unit Insulin Aspart (Novolog Vial Sliding Scale -) 1 vial SQ ACHS [facility] PRN Reason: Protocol Last Admin: 04/16/17 06:52 Dose: 12 units Insulin Detemir (Levemir Vial) 35 units SQ HS [facility] Last Admin: 04/15/17 21:26 Dose: 35 units Lisinopril (Prinivil) 20 mg PO DAILY [facility] Last Admin: 04/16/17 10:19 Dose: 20 mg Metformin HCl (Glucophage -) 1,000 mg PO BID@0700,1630 [facility] Last Admin: 04/16/17 06:48 Dose: 1,000 mg Morphine Sulfate (Morphine Injection -) 2 mg IVPUSH Q4H PRN PRN Reason: PAIN Last Admin: 04/16/17 06:57 Dose: 2 mg Morphine Sulfate (Ms Contin -) 15 mg PO BID [facility] Last Admin: 04/16/17 10:19 Dose: 15 mg Ranitidine HCl (Zantac -) 150 mg PO BID [facility] Last Admin: 04/16/17 10:19 Dose: 150 mg - Objective Vital Signs: Vital Signs Temperature 98.2 F 05/17/17 05:30 Pulse Rate 88 04/16/17 05:30 Respiratory Rate 18 04/16/17 05:30 Blood Pressure 131/68 04/16/17 05:30 O2 Sat by Pulse Oximetry (%) 96 04/15/17 21:00 Constitutional: Yes: No Distress, Calm Cardiovascular: Yes: Regular Rate and Rhythm Respiratory: Yes: Regular, CTA Bilaterally Gastrointestinal: Yes: Normal Bowel Sounds, Soft Musculoskeletal: Yes: Other Extremities: Yes: Other Integumentary: Yes: Erythema (decreasing) 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: Yes: Alert, Oriented Labs: CBC, BMP 04/14/17 07:10 04/14/17 23:15 INR, PTT INR 1.26 (0.82-1.09) H 04/10/17 12:18 - ....Imaging Cat Scan: Report Reviewed, Image Reviewed Assessment/Plan drug abuse knee collection r/o abscess of the knee joint methadone use r/o 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
[2017-04-16] MEDS ORDERED: INSULIN (NOVOLOG) ASPART 100 UNITS/ML 10ML VIAL ONE ×2 (14:30→21:00)
[2017-04-16] MEDS ORDERED: PT OWN MED DRAWER 7, Y5N ONE (20:41)
--- NOTE | 2017-04-16 21:08 | PN ---
Progress Note, Physician History of Present Illness: Pt still w/ significant pain in RLE wc has not improved - Current Medication List Current Medications: Active Medications Cyclobenzaprine HCl (Flexeril -) 5 mg PO TID PRN PRN Reason: MUSCLE SPASMS Last Admin: 04/14/17 21:41 Dose: 5 mg Heparin Sodium (Porcine) (Heparin -) 5,000 unit SQ BID [facility] Last Admin: 04/16/17 10:34 Dose: 5,000 unit Piperacillin Sod/Tazobactam Sod (Zosyn 3.375gm Ivpb (Pre-Docked)) 50 mls @ 100 mls/hr IVPB Q8H-IV [facility] PRN Reason: Protocol Last Admin: 04/16/17 18:00 Dose: 100 mls/hr Vancomycin HCl 1,250 mg/ (Dextrose) 250 mls @ 250 mls/hr IVPB BID [facility] PRN Reason: Protocol Last Admin: 04/16/17 10:20 Dose: 250 mls/hr Insulin Aspart (Novolog Mix 70/30 Vial) 15 units SQ BIDAC [facility] Last Admin: 04/16/17 16:39 Dose: 15 unit Insulin Aspart (Novolog Vial Sliding Scale -) 1 vial SQ ACHS [facility] PRN Reason: Protocol Last Admin: 04/16/17 16:39 Dose: 12 units Insulin Detemir (Levemir Vial) 35 units SQ HS [facility] Last Admin: 04/15/17 21:26 Dose: 35 units Lisinopril (Prinivil) 20 mg PO DAILY [facility] Last Admin: 04/16/17 10:19 Dose: 20 mg Metformin HCl (Glucophage -) 1,000 mg PO BID@0700,1630 [facility] Last Admin: 04/16/17 16:44 Dose: 1,000 mg Morphine Sulfate (Morphine Injection -) 2 mg IVPUSH Q4H PRN PRN Reason: PAIN Last Admin: 04/16/17 15:10 Dose: 2 mg Morphine Sulfate (Ms Contin -) 15 mg PO BID [facility] Last Admin: 04/16/17 10:19 Dose: 15 mg Pregabalin (Lyrica -) 25 mg PO TID [facility] Ranitidine HCl (Zantac -) 150 mg PO BID [facility] Last Admin: 04/16/17 10:19 Dose: 150 mg - Objective Vital Signs: Vital Signs Temperature 98.0 F 04/16/17 14:00 Pulse Rate 98 H 04/16/17 14:00 Respiratory Rate 20 04/16/17 14:00 Blood Pressure 108/71 04/16/17 09:00 O2 Sat by Pulse Oximetry (%) 98 04/16/17 09:00 Constitutional: Yes: Well Nourished Eyes: Yes: WNL HENT: Yes: WNL Neck: Yes: Supple Cardiovascular: Yes: WNL, Regular Rate and Rhythm Respiratory: Yes: WNL, Regular, CTA Bilaterally Gastrointestinal: Yes: WNL, Normal Bowel Sounds, Soft Extremities: Yes: Other (RLE (+) erythema) Labs: CBC, BMP 04/14/17 07:10 04/14/17 23:15 INR, PTT INR 1.26 (0.82-1.09) H 04/10/17 12:18 Problem List - Problems (1) Cellulitis Assessment/Plan: Cont IV zosyn/vanco/ceftriaxone Follow cultures Doppler of RLE negative for DVT CT scan RLE showed cellulitis w/ distension of prepatellar bursa ?possibility of infectious bursitis/abscess Await ortho recommendations Cont MS contin/IV morphine Due to pt's history of peripheral neuropathy will change neurontin to lyrica Code(s): L03.90 - CELLULITIS, UNSPECIFIED Qualifiers: Site of cellulitis: extremity Site of cellulitis of extremity: lower extremity Laterality: right Qualified Code(s): L03.115 - Cellulitis of right lower limb (2) Hypertension Assessment/Plan: Cont lisinopril Code(s): I10 - ESSENTIAL (PRIMARY) HYPERTENSION Qualifiers: Hypertension type: essential hypertension Qualified Code(s): I10 - Essential (primary) hypertension (3) Diabetes Assessment/Plan: Cont levemir/novolog Cont sliding scale Pt noncomplaint w/ her diet Code(s): E11.9 - TYPE 2 DIABETES MELLITUS WITHOUT COMPLICATIONS (4) GERD (gastroesophageal reflux disease) Assessment/Plan: Cont ranitidine Code(s): K21.9 - GASTRO-ESOPHAGEAL REFLUX DISEASE WITHOUT ESOPHAGITIS Qualifiers: Esophagitis presence: without esophagitis Qualified Code(s): K21.9 - Gastro-esophageal reflux disease without esophagitis (5) Substance abuse Code(s): F19.10 - OTHER PSYCHOACTIVE SUBSTANCE ABUSE, UNCOMPLICATED
[2017-04-16] MEDS: INSULIN DETEMIR 100 UNITS/ML MDV SQ SCH (21:10)
[2017-04-16] MEDS: PREGABALIN 25 MG CAPSULE PO SCH (21:46)
[2017-04-17] MEDS: morphine CARPU-JECT 2 MG/1 ML DISP.SYRIN IVPUSH PRN ×5 (01:09→18:35)
[2017-04-17] MEDS: PIPERACILLIN/TAZOB 3.375 GM 50 ML IVPB SCH ×3 (01:10→17:24)
[2017-04-17] MEDS: INSULIN SLIDING SCALE (NOVOLOG) 1 VIAL SQ SCH ×4 (06:25→21:47)
[2017-04-17] MEDS: INSULIN (NOVOLOG MIX 70/30) 100 UNITS/ML MDV SQ SCH ×2 (06:25→17:25)
[2017-04-17] MEDS: metFORMIN HCL 500 MG TABLET (FP) PO SCH ×2 (06:25→17:24)
[2017-04-17] MEDS: PREGABALIN 25 MG CAPSULE PO SCH ×2 (06:25→13:45)
[2017-04-17 08:18] LABS: ALBUMIN 2.5 g/dl (3.4-5.0); BILIRUBIN,TOTAL 0.6 mg/dL (0.2-1.0); CALCIUM 8.7 mg/dL (8.5-10.1); COCKROFT - GAULT 74.766; CREATININE 1.1 mg/dL (0.55-1.02); TOT PROT 7.3 g/dl (6.4-8.2)
[2017-04-17] MEDS: morphine SO4 SUSTAINED ACTING 15 MG TABLET.SA PO SCH ×3 (09:54→21:44)
[2017-04-17] MEDS: RANITIDINE HCL 150 MG TABLET (FP) PO SCH ×2 (09:54→21:44)
[2017-04-17] MEDS: LISINOPRIL 20 MG TABLET (FP) PO SCH (09:55)
[2017-04-17] MEDS: HEPARIN NA (PORCINE) 5,000 UNITS/ML 1ML VIAL SQ SCH ×2 (09:55→21:46)
[2017-04-17] MEDS: VANCOMYCIN 1,250 MG in DEXTROSE 5%-WATER - 250 ML IVPB SCH (10:50)
[2017-04-17 11:49] LABS: MCH 30.6 pg (25.7-33.7); MCHC 33.5 g/dl (32.0-36.0); MEAN CELL VOLUME 91.3 fl (80-96); PLATELET COUNT 193 K/MM3 (134-434); RDW 16.2 % (11.6-15.6); WHITE BLOOD COUNT 4.4 K/mm3 (4.0-10.0)
--- NOTE | 2017-04-17 13:45 | PN ---
Progress Note, Physician History of Present Illness: stable no new isses except pain knee joint starting to look better pain is her main concern - Current Medication List Current Medications: Active Medications Cyclobenzaprine HCl (Flexeril -) 5 mg PO TID PRN PRN Reason: MUSCLE SPASMS Last Admin: 04/14/17 21:41 Dose: 5 mg Heparin Sodium (Porcine) (Heparin -) 5,000 unit SQ BID [facility] Last Admin: 04/17/17 09:55 Dose: 5,000 unit Piperacillin Sod/Tazobactam Sod (Zosyn 3.375gm Ivpb (Pre-Docked)) 50 mls @ 100 mls/hr IVPB Q8H-IV [facility] PRN Reason: Protocol Last Admin: 04/17/17 09:55 Dose: 100 mls/hr Vancomycin HCl 1,250 mg/ (Dextrose) 250 mls @ 250 mls/hr IVPB BID [facility] PRN Reason: Protocol Last Admin: 04/17/17 10:50 Dose: 250 mls/hr Insulin Aspart (Novolog Mix 70/30 Vial) 25 units SQ BIDAC [facility] Last Admin: 04/17/17 06:25 Dose: 25 units Insulin Aspart (Novolog Vial Sliding Scale -) 1 vial SQ ACHS [facility] PRN Reason: Protocol Last Admin: 04/17/17 12:12 Dose: 9 units Insulin Detemir (Levemir Vial) 40 units SQ HS [facility] Lisinopril (Prinivil) 20 mg PO DAILY [facility] Last Admin: 04/17/17 09:55 Dose: 20 mg Metformin HCl (Glucophage -) 1,000 mg PO BID@0700,1630 [facility] Last Admin: 04/17/17 06:25 Dose: 1,000 mg Morphine Sulfate (Morphine Injection -) 2 mg IVPUSH Q4H PRN PRN Reason: PAIN Last Admin: 04/17/17 10:04 Dose: 2 mg Morphine Sulfate (Ms Contin -) 15 mg PO BID [facility] Last Admin: 04/17/17 10:49 Dose: 15 mg Pregabalin (Lyrica -) 25 mg PO TID [facility] Last Admin: 04/17/17 06:25 Dose: 25 mg Ranitidine HCl (Zantac -) 150 mg PO BID [facility] Last Admin: 04/17/17 09:54 Dose: 150 mg - Objective Vital Signs: Vital Signs Temperature 99.1 F 04/17/17 08:53 Pulse Rate 102 H 04/17/17 08:53 Respiratory Rate 20 04/17/17 08:53 Blood Pressure 102/62 04/17/17 08:53 O2 Sat by Pulse Oximetry (%) 98 04/16/17 21:00 Constitutional: Yes: Calm, Moderate Distress Cardiovascular: Yes: Regular Rate and Rhythm Respiratory: Yes: Regular, CTA Bilaterally Gastrointestinal: Yes: Normal Bowel Sounds, Soft Musculoskeletal: Yes: Other Extremities: Yes: Other Integumentary: Yes: Other (knee joint swelling better fluctuation better) 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: Yes: Alert, Oriented Psychiatric: Yes: Alert, Oriented Labs: CBC, BMP 04/17/17 06:10 04/17/17 06:10 INR, PTT INR 1.26 (0.82-1.09) H 04/10/17 12:18 Assessment/Plan drug abuse knee collection r/o abscess of the knee joint methadone use r/o osteo plan continue abx erythema better all the results noted cx result noted will stop vanco continue zosyn for now
[2017-04-17] MEDS ORDERED: ONDANSETRON 4 MG TABLET PO ONE (13:49)
[2017-04-17 14:26] LABS: PLATELET ESTIMATE ADEQUATE (NORMAL)
[2017-04-17] MEDS ORDERED: INSULIN (NOVOLOG) ASPART 100 UNITS/ML 10ML VIAL ONE ×2 (17:09→21:38)
--- NOTE | 2017-04-17 20:42 | PN ---
Progress Note, Physician - Current Medication List Current Medications: Active Medications Cyclobenzaprine HCl (Flexeril -) 5 mg PO TID PRN PRN Reason: MUSCLE SPASMS Last Admin: 04/14/17 21:41 Dose: 5 mg Heparin Sodium (Porcine) (Heparin -) 5,000 unit SQ BID [facility] Last Admin: 04/17/17 09:55 Dose: 5,000 unit Piperacillin Sod/Tazobactam Sod (Zosyn 3.375gm Ivpb (Pre-Docked)) 50 mls @ 100 mls/hr IVPB Q8H-IV [facility] PRN Reason: Protocol Last Admin: 04/17/17 17:24 Dose: 100 mls/hr Insulin Aspart (Novolog Mix 70/30 Vial) 25 units SQ BIDAC [facility] Last Admin: 04/17/17 17:25 Dose: 25 units Insulin Aspart (Novolog Vial Sliding Scale -) 1 vial SQ ACHS [facility] PRN Reason: Protocol Last Admin: 04/17/17 17:25 Dose: 8 units Insulin Detemir (Levemir Vial) 40 units SQ HS [facility] Lisinopril (Prinivil) 20 mg PO DAILY [facility] Last Admin: 04/17/17 09:55 Dose: 20 mg Metformin HCl (Glucophage -) 1,000 mg PO BID@0700,1630 [facility] Last Admin: 04/17/17 17:24 Dose: 1,000 mg Morphine Sulfate (Morphine Injection -) 2 mg IVPUSH Q4H PRN PRN Reason: PAIN Last Admin: 04/17/17 18:35 Dose: 2 mg Morphine Sulfate (Ms Contin -) 15 mg PO BID [facility] Last Admin: 04/17/17 10:49 Dose: 15 mg Pregabalin (Lyrica -) 25 mg PO TID [facility] Last Admin: 04/17/17 13:45 Dose: 25 mg Ranitidine HCl (Zantac -) 150 mg PO BID [facility] Last Admin: 04/17/17 09:54 Dose: 150 mg - Objective Vital Signs: Vital Signs Temperature 98.3 F 04/17/17 14:00 Pulse Rate 100 H 04/17/17 14:00 Respiratory Rate 18 04/17/17 14:00 Blood Pressure 102/62 04/17/17 08:53 O2 Sat by Pulse Oximetry (%) 98 04/16/17 21:00 Labs: CBC, BMP 04/17/17 06:10 04/17/17 06:10 INR, PTT INR 1.26 (0.82-1.09) H 04/10/17 12:18 Problem List - Problems (1) Cellulitis Code(s): L03.90 - CELLULITIS, UNSPECIFIED Qualifiers: Site of cellulitis: extremity Site of cellulitis of extremity: lower extremity Laterality: right Qualified Code(s): L03.115 - Cellulitis of right lower limb (2) Hypertension Code(s): I10 - ESSENTIAL (PRIMARY) HYPERTENSION Qualifiers: Hypertension type: essential hypertension Qualified Code(s): I10 - Essential (primary) hypertension (3) Diabetes Code(s): E11.9 - TYPE 2 DIABETES MELLITUS WITHOUT COMPLICATIONS (4) GERD (gastroesophageal reflux disease) Code(s): K21.9 - GASTRO-ESOPHAGEAL REFLUX DISEASE WITHOUT ESOPHAGITIS Qualifiers: Esophagitis presence: without esophagitis Qualified Code(s): K21.9 - Gastro-esophageal reflux disease without esophagitis (5) Substance abuse Code(s): F19.10 - OTHER PSYCHOACTIVE SUBSTANCE ABUSE, UNCOMPLICATED
[2017-04-17] MEDS: INSULIN DETEMIR 100 UNITS/ML MDV SQ SCH (21:48)
[2017-04-18] MEDS: morphine CARPU-JECT 2 MG/1 ML DISP.SYRIN IVPUSH PRN ×4 (01:06→16:27)
[2017-04-18] MEDS: PIPERACILLIN/TAZOB 3.375 GM 50 ML IVPB SCH ×3 (01:35→17:26)
--- NOTE | 2017-04-18 01:44 | PN ---
Progress Note, Physician Chief Complaint: leg hurts History of Present Illness: iddm uncontrolled knee infection abscess collection - Current Medication List Current Medications: Active Medications Cyclobenzaprine HCl (Flexeril -) 5 mg PO TID PRN PRN Reason: MUSCLE SPASMS Last Admin: 04/14/17 21:41 Dose: 5 mg Piperacillin Sod/Tazobactam Sod (Zosyn 3.375gm Ivpb (Pre-Docked)) 50 mls @ 100 mls/hr IVPB Q8H-IV [facility] PRN Reason: Protocol Last Admin: 04/17/17 17:24 Dose: 100 mls/hr Insulin Aspart (Novolog Mix 70/30 Vial) 25 units SQ BIDAC [facility] Last Admin: 04/17/17 17:25 Dose: 25 units Insulin Aspart (Novolog Vial Sliding Scale -) 1 vial SQ ACHS [facility] PRN Reason: Protocol Last Admin: 04/17/17 21:47 Dose: 9 units Insulin Detemir (Levemir Vial) 40 units SQ HS [facility] Last Admin: 04/17/17 21:48 Dose: 40 units Lisinopril (Prinivil) 20 mg PO DAILY [facility] Last Admin: 04/17/17 09:55 Dose: 20 mg Metformin HCl (Glucophage -) 1,000 mg PO BID@0700,1630 [facility] Last Admin: 04/17/17 17:24 Dose: 1,000 mg Morphine Sulfate (Morphine Injection -) 2 mg IVPUSH Q4H PRN PRN Reason: PAIN Last Admin: 04/18/17 01:06 Dose: 2 mg Morphine Sulfate (Ms Contin -) 15 mg PO BID [facility] Last Admin: 04/17/17 21:44 Dose: 15 mg Ranitidine HCl (Zantac -) 150 mg PO BID [facility] Last Admin: 04/17/17 21:44 Dose: 150 mg - Objective Vital Signs: Vital Signs Temperature 99 F 04/17/17 18:00 Pulse Rate 114 H 04/17/17 18:00 Respiratory Rate 21 04/17/17 18:00 Blood Pressure 116/60 04/17/17 18:00 O2 Sat by Pulse Oximetry (%) 98 04/16/17 21:00 Constitutional: Yes: Well Nourished Eyes: Yes: EOM Intact HENT: Yes: Normocephalic Neck: Yes: Trachea Midline Cardiovascular: Yes: Regular Rate and Rhythm Respiratory: Yes: CTA Bilaterally Gastrointestinal: Yes: Normal Bowel Sounds ...Rectal Exam: Yes: Deferred Genitourinary: Yes: WNL Breast(s): Yes: WNL Musculoskeletal: Yes: WNL Extremities: Yes: Delayed Capillary Refill Edema: Yes Edema: RLE: 2+ Peripheral Pulses WNL: Yes Integumentary: Yes: Onychomycosis, Venous Stasis Changes Wound/Incision: Yes: Draining, Excoriated 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: Yes: Alert, Oriented ...Motor Strength: WNL Psychiatric: Yes: Alert, Oriented Labs: CBC, BMP 04/17/17 06:10 04/17/17 06:10 INR, PTT INR 1.26 (0.82-1.09) H 04/10/17 12:18 Problem List - Problems (1) Diabetes Code(s): E11.9 - TYPE 2 DIABETES MELLITUS WITHOUT COMPLICATIONS (2) Diabetes mellitus, insulin dependent (IDDM), uncontrolled Code(s): E10.65 - TYPE 1 DIABETES MELLITUS WITH HYPERGLYCEMIA Assessment/Plan Current Active Problems Cellulitis (Acute) Diabetes (Acute) Diabetes mellitus, insulin dependent (IDDM), uncontrolled (Acute) Sepsis (Acute) Substance abuse (Acute) Abnormal Lab Results 04/17/17 04/17/17 06:10 06:10 RDW 16.2 H Neutrophils % 38.0 L Lymphocytes % 49.0 H D Monocytes % 13.0 H Sodium 134 L BUN 28 H D Creatinine 1.1 H D Random Glucose 236 H D AST 147 H D ALT 94 H D Alkaline Phosphatase 225 H Albumin 2.5 L D plan: Current Medications Generic Name Dose Route Start Last Admin Trade Name Sagarq PRN Reason Stop Dose Admin Cyclobenzaprine HCl 5 mg 04/13/17 20:25 04/14/17 21:41 Flexeril - PO 5 mg TID PRN Administration MUSCLE SPASMS Piperacillin Sod/Tazobactam Sod 50 mls @ 100 mls/hr 04/11/17 11:00 04/17/17 17: 24 Zosyn 3.375gm Ivpb (Pre-Docked) IVPB 100 mls/hr Q8H-IV SIRIA Administration Protocol Insulin Aspart 25 units 04/16/17 23:32 04/17/17 17:25 Novolog Mix 70/30 Vial SQ 25 units BIDAC SIRIA Administration Insulin Aspart 1 vial 04/16/17 23:34 04/17/17 21:47 Novolog Vial Sliding Scale - SQ 9 units ACHS SIRIA Administration Protocol Insulin Detemir 40 units 04/16/17 23:33 04/17/17 21:48 Levemir Vial SQ 40 units HS SIRIA Administration Lisinopril 20 mg 04/11/17 10:00 04/17/17 09:55 Prinivil PO 20 mg DAILY SIRIA Administration Metformin HCl 1,000 mg 04/12/17 16:30 04/17/17 17:24 Glucophage - PO 1,000 mg BID@0700,1630 SIRIA Administration Morphine Sulfate 2 mg 04/13/17 22:11 04/18/17 01:06 Morphine Injection - IVPUSH 2 mg Q4H PRN Administration PAIN Morphine Sulfate 15 mg 04/15/17 22:00 04/17/17 21:44 Ms Contin - PO 15 mg BID SIRIA Administration Ranitidine HCl 150 mg 04/10/17 22:00 04/17/17 21:44 Zantac - PO 150 mg BID SIRIA Administration
[2017-04-18] MEDS ORDERED: PT OWN MED DRAWER 7, Y5N ONE (06:36)
[2017-04-18] MEDS: metFORMIN HCL 500 MG TABLET (FP) PO SCH ×2 (06:41→16:27)
[2017-04-18] MEDS: INSULIN (NOVOLOG MIX 70/30) 100 UNITS/ML MDV SQ SCH ×2 (06:41→16:29)
[2017-04-18] MEDS: INSULIN SLIDING SCALE (NOVOLOG) 1 VIAL SQ SCH ×4 (06:42→23:04)
[2017-04-18 08:29] LABS: MCH 30.5 pg (25.7-33.7); MCHC 33.5 g/dl (32.0-36.0); MEAN CELL VOLUME 91.1 fl (80-96); MEAN PLT VOLUME 7.8 fl (7.5-11.1); PLATELET COUNT 161 K/MM3 (134-434); RDW 16.1 % (11.6-15.6); WHITE BLOOD COUNT 3.7 K/mm3 (4.0-10.0)
[2017-04-18 09:01] LABS: ALBUMIN 2.2 g/dl (3.4-5.0); CALCIUM 8.4 mg/dL (8.5-10.1)
[2017-04-18 09:06] LABS: COCKROFT - GAULT 54.8335; CREATININE 1.5 mg/dL (0.55-1.02); TOT PROT 6.4 g/dl (6.4-8.2)
[2017-04-18] MEDS: LISINOPRIL 20 MG TABLET (FP) PO SCH (09:22)
[2017-04-18] MEDS: RANITIDINE HCL 150 MG TABLET (FP) PO SCH ×2 (09:22→23:07)
[2017-04-18] MEDS: morphine SO4 SUSTAINED ACTING 15 MG TABLET.SA PO SCH ×2 (09:24→23:00)
[2017-04-18 09:33] LABS: PLATELET ESTIMATE ADEQUATE (NORMAL)
--- NOTE | 2017-04-18 10:05 | PN ---
Progress Note (short form) - Note Progress Note: S: Patient states her pain has persisted, feeling slightly worse. States she is having chills, no fevers. Having difficulty ambulating secondary to pain. O: VSS. Afebrile. NAD. Right knee exam Prepatellar bursa with fluctuance and surrounding erythema. Swelling/erythema noted to the distal leg. ROM 30-90 Calves with slight tenderness. Negative Xavi's. NVID. A/P: 46 y/o female admitted with R knee prepatellar bursitis and cellulitis -doppler pending -R knee fluctuant today; spoke to patient regarding risks/benefits of I&D and she elected to proceed -Procedure: The R knee was prepped with betadine and alcohol x3. Under sterile technique, a 25g needle was used to inject approximately 10cc of lidocaine into the area. An incision was made using a #11 blade with spontaneous return of sangineous fluid. Pressure was applied with further drainage of sangineous fluid. The wound was packed and a pressure dressing was applied. The patient tolerated well. Wound cultures were sent. -remove packing in 1-2 days -continue IV abx as per ID -continue pain control as per pain management -OOB/elevate as needed
[2017-04-18] MEDS ORDERED: morphine CARPU-JECT 2 MG/1 ML DISP.SYRIN IVPUSH ONE (10:15)
--- NOTE | 2017-04-18 10:18 | PN ---
Progress Note, Physician History of Present Illness: patient had severe pain in the knee joint fluctuation redness ahs increased now cellulitis extending below the knee joint ortho plans to drain the joint - Current Medication List Current Medications: Active Medications Cyclobenzaprine HCl (Flexeril -) 5 mg PO TID PRN PRN Reason: MUSCLE SPASMS Last Admin: 04/14/17 21:41 Dose: 5 mg Piperacillin Sod/Tazobactam Sod (Zosyn 3.375gm Ivpb (Pre-Docked)) 50 mls @ 100 mls/hr IVPB Q8H-IV [facility] PRN Reason: Protocol Last Admin: 04/18/17 09:22 Dose: 100 mls/hr Insulin Aspart (Novolog Mix 70/30 Vial) 25 units SQ BIDAC [facility] Last Admin: 04/18/17 06:41 Dose: Not Given Insulin Aspart (Novolog Vial Sliding Scale -) 1 vial SQ ACHS [facility] PRN Reason: Protocol Last Admin: 04/18/17 06:42 Dose: Not Given Insulin Detemir (Levemir Vial) 40 units SQ HS [facility] Last Admin: 04/17/17 21:48 Dose: 40 units Lisinopril (Prinivil) 20 mg PO DAILY [facility] Last Admin: 04/18/17 09:22 Dose: 20 mg Metformin HCl (Glucophage -) 1,000 mg PO BID@0700,1630 [facility] Last Admin: 04/18/17 06:41 Dose: Not Given Morphine Sulfate (Morphine Injection -) 2 mg IVPUSH Q4H PRN PRN Reason: PAIN Last Admin: 04/18/17 07:43 Dose: 2 mg Morphine Sulfate (Ms Contin -) 15 mg PO BID [facility] Last Admin: 04/18/17 09:24 Dose: Not Given Morphine Sulfate (Morphine Injection -) 2 mg IVPUSH ONCE ONE Stop: 04/18/17 10:16 Last Admin: 04/18/17 10:12 Dose: 2 mg Ranitidine HCl (Zantac -) 150 mg PO BID [facility] Last Admin: 04/18/17 09:22 Dose: 150 mg - Objective Vital Signs: Vital Signs Temperature 97.8 F 04/18/17 08:34 Pulse Rate 96 H 04/18/17 08:34 Respiratory Rate 18 04/18/17 08:34 Blood Pressure 104/81 04/18/17 08:34 O2 Sat by Pulse Oximetry (%) 98 04/17/17 21:00 Constitutional: Yes: Calm, Moderate Distress Cardiovascular: Yes: Regular Rate and Rhythm Respiratory: Yes: Regular, CTA Bilaterally Gastrointestinal: Yes: Normal Bowel Sounds, Soft Musculoskeletal: Yes: Other Extremities: Yes: Erythema (knee erythema fluctuation) 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: Yes: Alert, Oriented Psychiatric: Yes: Alert, Oriented Labs: CBC, BMP 04/18/17 07:40 04/18/17 07:40 INR, PTT INR 1.26 (0.82-1.09) H 04/10/17 12:18 Assessment/Plan drug abuse knee collection r/o abscess of the knee joint methadone use r/o osteo collection knee joint plan will restart vanco drainage of the knee joint planned by ortho send the fluid for cx rest as per barry
[2017-04-18] MEDS ORDERED: INSULIN (NOVOLOG) ASPART 100 UNITS/ML 10ML VIAL ONE ×3 (10:59→23:04)
[2017-04-18] MEDS: VANCOMYCIN 1,250 MG in DEXTROSE 5%-WATER - 250 ML IVPB SCH (14:20)
--- NOTE | 2017-04-18 18:15 | CON.GI ---
Consult Consult Specialty:: GASTROENTEROLOGY - History of Present Illness Chief Complaint: KNEE AND FOOT PAIN History of Present Illness: 46 YEAR OLD FEMALE WITH ADMISSION SOON AFTER ALCOHOL REHAB FOR KNEE ABSCESS AND FOOT INFECTION. REVIEW OF THE CHART DOES NOT GIVE A REASON FOR THE CONSULT BUT SHE TELLS ME SHE IS AN ALCOHOLIC AND HAS POLYSUBSTANCE ABUSE WITH RECENT DISCHARGE FROM REHAB AND ELEVATED LIVER FUNCTION TESTS ARE NOTED. SHE ALSO TELLS ME THAT SHE INTERMITTENTL" FALLS OFF THE WAG[place] " AFTER YEARS OF SOBRIETY. SHE HAS A HISTORY OF CIRRHOSIS WITH PORTAL HYPERTENSION AND REFRACTORY ASCITES. SHE HAD A TIPS PLACED IN 2006. THE CATHETER WAS OCCLUDED ONCE AND WAS SUCCESSFULLY OPENED WITH BALLOON CATHETER. WHILE IN THE HOSPITAL HER BLOOD CULTURES ARE NORMAL. SHE HAD A DEBRIDEMENT OF A FOOT NECROTIC TISSUE AND DRAINAGE OF FLUID ON HER KNEE. YESTERDAY HER AST AND ALT LUCÍA AND HAVE STARTED TO DECREASE TODAY. HER ALK PHOS IS CHRONICALLY ELEVATED SINCE ADMISSION. - History Source History Provided By: Patient Limitations to Obtaining History: Poor Historian - Past Medical History Cardio/Vascular: Yes: HTN, Other (DM ) Gastrointestinal: Yes: GERD Hepatobiliary: Yes: Cirrhosis, Other (REFRACTORY ASCITES AND CIRRHOSIS, HEP B/ C NEG PER PATIENT) ...LMP: 03/31/17 ...: No Psych: Yes: Other (Substance abuse) - Past Surgical History Additional Surgical History: TIPS PROCEDURE - Alcohol/Substance Use Hx Alcohol Use: Yes - Smoking History Smoking history: Never smoked Have you smoked in the past 12 months: No Aproximately how many cigarettes per day: 0 Home Medications - Allergies Allergies/Adverse Reactions: Allergies Allergy/AdvReac Type Severity Reaction Status Date / Time shellfish derived Allergy Severe Hives Verified 04/10/17 11:13 strawberry Allergy Severe Hives Verified 04/10/17 11:13 No Known Drug Allergies Allergy Verified 04/10/17 11:13 - Home Medications Home Medications: Ambulatory Orders Insulin Sliding Scale [Novolog Vial Sliding Scale -] 0 units SQ TIDAC 05/30/16 Ibuprofen [Motrin -] 800 mg PO Q8H PRN #60 tablet 11/27/16 Insulin Glargine,Hum.rec.anlog [Lantus (10mL VIAL) -] 25 units SQ HS #1 vial Lisinopril [Prinivil] 20 mg PO DAILY #30 tablet 11/27/16 Ranitidine [Zantac -] 150 mg PO BID #60 tablet 11/27/16 Gabapentin [Neurontin -] 400 mg PO TID #90 cap 04/09/17 Mirtazapine [Remeron -] 15 mg PO HS #30 tab 04/09/17 Trazodone HCl [Desyrel -] 200 mg PO HS #30 tablet 04/09/17 Family Disease History - Family Disease History Family Disease History: Diabetes: Grandparent (alcohol), Father, Mother, Other: Grandparent Review of Systems - Review of Systems Constitutional: reports: Chills, Fever Eyes: reports: No Symptoms HENT: reports: No Symptoms Neck: reports: No Symptoms Cardiovascular: reports: No Symptoms Respiratory: reports: No Symptoms Gastrointestinal: reports: No Symptoms Genitourinary: reports: No Symptoms Breasts: reports: No Symptoms Reported Musculoskeletal: reports: Extremity Pain, Joint Pain, Joint Swelling Integumentary: reports: No Symptoms 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: reports: No Symptoms Hematology/Lymphatic: reports: No Symptoms Psychiatric: reports: No Symptoms Physical Exam-GI Vital Signs: Vital Signs Temperature 98.7 F 04/18/17 16:04 Pulse Rate 105 H 04/18/17 16:04 Respiratory Rate 20 04/18/17 16:04 Blood Pressure 136/102 04/18/17 16:04 O2 Sat by Pulse Oximetry (%) 99 04/18/17 09:00 Constitutional: Yes: Calm Eyes: Yes: Conjunctiva Clear HENT: Yes: Normocephalic Neck: Yes: Supple Cardiovascular: Yes: Regular Rate and Rhythm Respiratory: Yes: CTA Bilaterally Gastrointestinal Inspection: Yes: WNL ...Auscultate: Yes: Normoactive Bowel Sounds ...Palpate: Yes: Soft Extremities: Yes: WNL, Other (DRESSING ON LEFT KNEE AND L FOOT, ERYTHEMA AND EDEMA L LEG) Labs: CBC, BMP 04/18/17 07:40 04/18/17 07:40 INR, PTT INR 1.26 (0.82-1.09) H 04/10/17 12:18 Imaging - Results Ultrasound: Image Reviewed Problem List - Problems (1) Elevated liver enzymes Assessment/Plan: THIS PATIENT HAD STABLE CIRRHOSIS AND NOW HAS A CELLULITIS AND ABSCESS. HER INFECTED FOOT WAS MANIPULATED AND LIVER ENZYMES THEN LUCÍA. I BELIEVE THAT THE ON E TIME RISE IN THE LFT'S WITH CURRENT DOWN TRENDING REFLECTS HER INFECTION AND MANIPULATION OF THE INFECTED FOOT. WOULD FOLLOW AND TREND LFT'S. WOULD ALSO GET A DOPPLER STUDY ON HER TIPS CATHETER. I WILL ORDER THAT FOR THE WEEKEND. DR PARHAM IS DATA DELIVERABLES MANAGER THIS WEEKEND. HE WILL FOLLOW UP ON THOSE RESULTS. Code(s): R74.8 - ABNORMAL LEVELS OF OTHER SERUM ENZYMES (2) Chronic liver disease and cirrhosis Code(s): K74.60 - UNSPECIFIED CIRRHOSIS OF LIVER K76.9 - LIVER DISEASE, UNSPECIFIED (3) Cellulitis Code(s): L03.90 - CELLULITIS, UNSPECIFIED Qualifiers: Site of cellulitis: extremity Site of cellulitis of extremity: lower extremity Laterality: right Qualified Code(s): L03.115 - Cellulitis of right lower limb (4) Substance abuse Code(s): F19.10 - OTHER PSYCHOACTIVE SUBSTANCE ABUSE, UNCOMPLICATED (5) Alcohol dependence with uncomplicated withdrawal Code(s): F10.230 - ALCOHOL DEPENDENCE WITH WITHDRAWAL, UNCOMPLICATED (6) Depressive disorder Code(s): F32.9 - MAJOR DEPRESSIVE DISORDER, SINGLE EPISODE, UNSPECIFIED (7) GERD (gastroesophageal reflux disease) Code(s): K21.9 - GASTRO-ESOPHAGEAL REFLUX DISEASE WITHOUT ESOPHAGITIS Qualifiers: Esophagitis presence: without esophagitis Qualified Code(s): K21.9 - Gastro-esophageal reflux disease without esophagitis (8) Peripheral neuropathy Code(s): G62.9 - POLYNEUROPATHY, UNSPECIFIED Qualifiers: Peripheral neuropathy type: polyneuropathy, alcohol-induced Qualified Code(s): G62.1 - Alcoholic polyneuropathy
[2017-04-18] MEDS ORDERED: INSULIN SLIDING SCALE (NOVOLOG) 1 VIAL SQ ONE (21:00)
[2017-04-18] MEDS: morphine CARPU-JECT 4 MG/1 ML DISP.SYRIN IVPUSH PRN (21:01)
--- NOTE | 2017-04-18 22:16 | PN ---
Progress Note, Physician - Current Medication List Current Medications: Active Medications Cyclobenzaprine HCl (Flexeril -) 5 mg PO TID PRN PRN Reason: MUSCLE SPASMS Last Admin: 04/14/17 21:41 Dose: 5 mg Piperacillin Sod/Tazobactam Sod (Zosyn 3.375gm Ivpb (Pre-Docked)) 50 mls @ 100 mls/hr IVPB Q8H-IV [facility] PRN Reason: Protocol Last Admin: 04/18/17 17:26 Dose: 100 mls/hr Vancomycin HCl 1,250 mg/ (Dextrose) 250 mls @ 250 mls/hr IVPB BID@0200,1400 [facility] PRN Reason: Protocol Last Admin: 04/18/17 14:20 Dose: 250 mls/hr Insulin Aspart (Novolog Vial Sliding Scale -) 1 vial SQ ACHS [facility] PRN Reason: Protocol Last Admin: 04/18/17 16:28 Dose: 9 units Insulin Aspart (Novolog Mix 70/30 Vial) 27 units SQ BIDAC [facility] Insulin Detemir (Levemir Vial) 40 units SQ HS [facility] Last Admin: 04/17/17 21:48 Dose: 40 units Lisinopril (Prinivil) 20 mg PO DAILY [facility] Last Admin: 04/18/17 09:22 Dose: 20 mg Metformin HCl (Glucophage -) 1,000 mg PO BID@0700,1630 [facility] Last Admin: 04/18/17 16:27 Dose: 1,000 mg Morphine Sulfate (Ms Contin -) 15 mg PO BID [facility] Last Admin: 04/18/17 09:24 Dose: Not Given Morphine Sulfate (Morphine Injection -) 4 mg IVPUSH Q4H PRN Last Admin: 04/18/17 21:01 Dose: 4 mg Ranitidine HCl (Zantac -) 150 mg PO BID [facility] Last Admin: 04/18/17 09:22 Dose: 150 mg - Objective Vital Signs: Vital Signs Temperature 98.7 F 04/18/17 17:00 Pulse Rate 96 H 04/18/17 17:00 Respiratory Rate 18 04/18/17 17:00 Blood Pressure 132/64 04/18/17 17:00 O2 Sat by Pulse Oximetry (%) 99 04/18/17 09:00 Labs: CBC, BMP 04/18/17 07:40 04/18/17 07:40 INR, PTT INR 1.26 (0.82-1.09) H 04/10/17 12:18 Problem List - Problems (1) Cellulitis Code(s): L03.90 - CELLULITIS, UNSPECIFIED Qualifiers: Site of cellulitis: extremity Site of cellulitis of extremity: lower extremity Laterality: right Qualified Code(s): L03.115 - Cellulitis of right lower limb (2) Hypertension Code(s): I10 - ESSENTIAL (PRIMARY) HYPERTENSION Qualifiers: Hypertension type: essential hypertension Qualified Code(s): I10 - Essential (primary) hypertension (3) Diabetes Code(s): E11.9 - TYPE 2 DIABETES MELLITUS WITHOUT COMPLICATIONS (4) GERD (gastroesophageal reflux disease) Code(s): K21.9 - GASTRO-ESOPHAGEAL REFLUX DISEASE WITHOUT ESOPHAGITIS Qualifiers: Esophagitis presence: without esophagitis Qualified Code(s): K21.9 - Gastro-esophageal reflux disease without esophagitis (5) Substance abuse Code(s): F19.10 - OTHER PSYCHOACTIVE SUBSTANCE ABUSE, UNCOMPLICATED
[2017-04-18] MEDS: INSULIN DETEMIR 100 UNITS/ML MDV SQ SCH (23:03)
[2017-04-18] MEDS: CYCLOBENZAPRINE HCL 10 MG TABLET (FP) PO PRN (23:07)
[2017-04-19] MEDS: morphine CARPU-JECT 4 MG/1 ML DISP.SYRIN IVPUSH PRN ×6 (01:32→21:59)
[2017-04-19] MEDS: PIPERACILLIN/TAZOB 3.375 GM 50 ML IVPB SCH ×3 (01:33→18:09)
[2017-04-19] MEDS: VANCOMYCIN 1,250 MG in DEXTROSE 5%-WATER - 250 ML IVPB SCH ×2 (02:23→13:59)
[2017-04-19] MEDS: INSULIN (NOVOLOG MIX 70/30) 100 UNITS/ML MDV SQ SCH ×2 (06:40→17:05)
[2017-04-19] MEDS: INSULIN SLIDING SCALE (NOVOLOG) 1 VIAL SQ SCH ×4 (06:41→23:00)
[2017-04-19] MEDS: metFORMIN HCL 500 MG TABLET (FP) PO SCH ×2 (06:41→17:03)
[2017-04-19] MEDS ORDERED: INSULIN (NOVOLOG) ASPART 100 UNITS/ML 10ML VIAL ONE ×2 (06:41→22:59)
[2017-04-19 09:45] LABS: ALBUMIN 2.2 g/dl (3.4-5.0); BILIRUBIN,DIRECT 0.2 mg/dL (0.0-0.2); BILIRUBIN,TOTAL 0.4 mg/dL (0.2-1.0); TOT PROT 6.7 g/dl (6.4-8.2)
[2017-04-19] MEDS: LISINOPRIL 20 MG TABLET (FP) PO SCH (09:59)
[2017-04-19] MEDS: morphine SO4 SUSTAINED ACTING 15 MG TABLET.SA PO SCH ×2 (09:59→23:00)
[2017-04-19] MEDS: RANITIDINE HCL 150 MG TABLET (FP) PO SCH ×2 (09:59→23:00)
--- NOTE | 2017-04-19 13:57 | PN ---
GI Progress Note Subjective: GI NOte ( covering Dr Lee) : Sonogram reveals no masses and no comments about ascites. LFTS are stable. No adbominal pain. - Objective Vital Signs: Vital Signs Temperature 98.7 F 04/19/17 06:00 Pulse Rate 98 H 04/19/17 06:00 Respiratory Rate 20 04/19/17 06:00 Blood Pressure 131/79 04/19/17 06:00 O2 Sat by Pulse Oximetry (%) 99 04/18/17 22:00 Constitutional: Calm ...Auscultate: Yes: Normoactive Bowel Sounds ...Palpate: Yes: Soft, Other (nontender) Labs: CBC, BMP 04/18/17 07:40 04/18/17 07:40 INR, PTT INR 1.26 (0.82-1.09) H 04/10/17 12:18 Laboratory Tests 04/19/17 09:00 Total Bilirubin 0.4 D Direct Bilirubin 0.2 GGT 174 H AST 63 H D ALT 68 Alkaline Phosphatase 235 H Assessment/Plan Stable liver function in the face of cellulitis. Dr Lee will return 04/21.
--- NOTE | 2017-04-19 16:15 | PN ---
Progress Note (short form) - Note Progress Note: pt resting comfortably Afeb cultures ntd wbc 3.7 nvid knee wound intact, redness around edges, no purulence s/p I&D prepatellar bursitis -continue abx -pull packing tomorrow -follow clinical exam
--- NOTE | 2017-04-19 17:45 | PN ---
Progress Note, Physician History of Present Illness: feeling better knee tapped yesterday now has severe pain - Current Medication List Current Medications: Active Medications Cyclobenzaprine HCl (Flexeril -) 5 mg PO TID PRN PRN Reason: MUSCLE SPASMS Last Admin: 04/18/17 23:07 Dose: 5 mg Piperacillin Sod/Tazobactam Sod (Zosyn 3.375gm Ivpb (Pre-Docked)) 50 mls @ 100 mls/hr IVPB Q8H-IV [facility] PRN Reason: Protocol Last Admin: 04/19/17 10:00 Dose: 100 mls/hr Vancomycin HCl 1,250 mg/ (Dextrose) 250 mls @ 250 mls/hr IVPB BID@0200,1400 [facility] PRN Reason: Protocol Last Admin: 04/19/17 13:59 Dose: 250 mls/hr Insulin Aspart (Novolog Vial Sliding Scale -) 1 vial SQ ACHS [facility] PRN Reason: Protocol Last Admin: 04/19/17 17:03 Dose: 8 units Insulin Aspart (Novolog Mix 70/30 Vial) 27 units SQ BIDAC [facility] Last Admin: 04/19/17 17:05 Dose: 27 units Insulin Detemir (Levemir Vial) 40 units SQ HS [facility] Last Admin: 04/18/17 23:03 Dose: 40 units Lisinopril (Prinivil) 20 mg PO DAILY [facility] Last Admin: 04/19/17 09:59 Dose: 20 mg Metformin HCl (Glucophage -) 1,000 mg PO BID@0700,1630 [facility] Last Admin: 04/19/17 17:03 Dose: 1,000 mg Morphine Sulfate (Ms Contin -) 15 mg PO BID [facility] Last Admin: 04/19/17 09:59 Dose: Not Given Morphine Sulfate (Morphine Injection -) 4 mg IVPUSH Q4H PRN Last Admin: 04/19/17 14:03 Dose: 4 mg Ranitidine HCl (Zantac -) 150 mg PO BID [facility] Last Admin: 04/19/17 09:59 Dose: 150 mg - Objective Vital Signs: Vital Signs Temperature 98.5 F 04/19/17 13:56 Pulse Rate 91 H 04/19/17 13:56 Respiratory Rate 20 04/19/17 13:56 Blood Pressure 131/79 04/19/17 06:00 O2 Sat by Pulse Oximetry (%) 99 04/18/17 22:00 Constitutional: Yes: Calm, Moderate Distress Cardiovascular: Yes: Regular Rate and Rhythm Respiratory: Yes: Regular, CTA Bilaterally Gastrointestinal: Yes: Normal Bowel Sounds, Soft Musculoskeletal: Yes: Other Extremities: Yes: Other 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: Yes: Alert, Oriented Psychiatric: Yes: Alert, Oriented Labs: CBC, BMP 04/18/17 07:40 04/18/17 07:40 INR, PTT INR 1.26 (0.82-1.09) H 04/10/17 12:18 Assessment/Plan drug abuse knee collection r/o abscess of the knee joint methadone use r/o osteo collection knee joint plan continue vanco cx reports noted once patient stable will switch to oral
--- NOTE | 2017-04-19 18:34 | PN ---
Progress Note, Physician - Current Medication List Current Medications: Active Medications Cyclobenzaprine HCl (Flexeril -) 5 mg PO TID PRN PRN Reason: MUSCLE SPASMS Last Admin: 04/18/17 23:07 Dose: 5 mg Piperacillin Sod/Tazobactam Sod (Zosyn 3.375gm Ivpb (Pre-Docked)) 50 mls @ 100 mls/hr IVPB Q8H-IV [facility] PRN Reason: Protocol Last Admin: 04/19/17 18:09 Dose: 100 mls/hr Vancomycin HCl 1,250 mg/ (Dextrose) 250 mls @ 250 mls/hr IVPB BID@0200,1400 [facility] PRN Reason: Protocol Last Admin: 04/19/17 13:59 Dose: 250 mls/hr Insulin Aspart (Novolog Vial Sliding Scale -) 1 vial SQ ACHS [facility] PRN Reason: Protocol Last Admin: 04/19/17 17:03 Dose: 8 units Insulin Aspart (Novolog Mix 70/30 Vial) 27 units SQ BIDAC [facility] Last Admin: 04/19/17 17:05 Dose: 27 units Insulin Detemir (Levemir Vial) 40 units SQ HS [facility] Last Admin: 04/18/17 23:03 Dose: 40 units Lisinopril (Prinivil) 20 mg PO DAILY [facility] Last Admin: 04/19/17 09:59 Dose: 20 mg Metformin HCl (Glucophage -) 1,000 mg PO BID@0700,1630 [facility] Last Admin: 04/19/17 17:03 Dose: 1,000 mg Morphine Sulfate (Ms Contin -) 15 mg PO BID [facility] Last Admin: 04/19/17 09:59 Dose: Not Given Morphine Sulfate (Morphine Injection -) 4 mg IVPUSH Q4H PRN Last Admin: 04/19/17 18:09 Dose: 4 mg Ranitidine HCl (Zantac -) 150 mg PO BID [facility] Last Admin: 04/19/17 09:59 Dose: 150 mg - Objective Vital Signs: Vital Signs Temperature 98.5 F 04/19/17 13:56 Pulse Rate 91 H 04/19/17 13:56 Respiratory Rate 20 04/19/17 13:56 Blood Pressure 131/79 04/19/17 06:00 O2 Sat by Pulse Oximetry (%) 99 04/18/17 22:00 Labs: CBC, BMP 04/18/17 07:40 04/18/17 07:40 INR, PTT INR 1.26 (0.82-1.09) H 04/10/17 12:18 Problem List - Problems (1) Cellulitis Code(s): L03.90 - CELLULITIS, UNSPECIFIED Qualifiers: Site of cellulitis: extremity Site of cellulitis of extremity: lower extremity Laterality: right Qualified Code(s): L03.115 - Cellulitis of right lower limb (2) Hypertension Code(s): I10 - ESSENTIAL (PRIMARY) HYPERTENSION Qualifiers: Hypertension type: essential hypertension Qualified Code(s): I10 - Essential (primary) hypertension (3) Diabetes Code(s): E11.9 - TYPE 2 DIABETES MELLITUS WITHOUT COMPLICATIONS (4) GERD (gastroesophageal reflux disease) Code(s): K21.9 - GASTRO-ESOPHAGEAL REFLUX DISEASE WITHOUT ESOPHAGITIS Qualifiers: Esophagitis presence: without esophagitis Qualified Code(s): K21.9 - Gastro-esophageal reflux disease without esophagitis (5) Substance abuse Code(s): F19.10 - OTHER PSYCHOACTIVE SUBSTANCE ABUSE, UNCOMPLICATED
[2017-04-19] MEDS: INSULIN DETEMIR 100 UNITS/ML MDV SQ SCH (22:58)
[2017-04-20] MEDS: PIPERACILLIN/TAZOB 3.375 GM 50 ML IVPB SCH ×3 (01:35→18:00)
[2017-04-20] MEDS: morphine CARPU-JECT 4 MG/1 ML DISP.SYRIN IVPUSH PRN ×4 (02:48→21:29)
[2017-04-20] MEDS: VANCOMYCIN 1,250 MG in DEXTROSE 5%-WATER - 250 ML IVPB SCH ×2 (02:49→14:31)
[2017-04-20] MEDS: INSULIN (NOVOLOG MIX 70/30) 100 UNITS/ML MDV SQ SCH ×2 (06:37→16:51)
[2017-04-20] MEDS: INSULIN SLIDING SCALE (NOVOLOG) 1 VIAL SQ SCH ×4 (06:39→22:51)
[2017-04-20] MEDS ORDERED: INSULIN (NOVOLOG) ASPART 100 UNITS/ML 10ML VIAL ONE ×3 (06:40→22:52)
[2017-04-20] MEDS: metFORMIN HCL 500 MG TABLET (FP) PO SCH ×2 (06:41→16:49)
[2017-04-20] MEDS: morphine SO4 SUSTAINED ACTING 15 MG TABLET.SA PO SCH ×2 (10:24→23:52)
[2017-04-20] MEDS: LISINOPRIL 20 MG TABLET (FP) PO SCH (10:25)
[2017-04-20] MEDS: RANITIDINE HCL 150 MG TABLET (FP) PO SCH ×2 (10:25→22:50)
--- NOTE | 2017-04-20 12:47 | PN ---
Progress Note (short form) - Note Progress Note: S: Patient is having persistent pain, slight improvement. Denies fever, chills. O: VSS. Afebrile. NAD. Right knee exam: Dressings removed. Packing removed. Prepatellar bursa with mild surrounding erythema, improved. No purulence. Swelling/erythema noted to the distal leg, also improved. ROM 20-100 secondary to pain. Calves with slight tenderness. Negative Xavi's. NVID. WBC 3.7 today Wound cultures with no growth A/P: 46 y/o female s/p I&D for R knee prepatellar bursitis -wound improving -continue IV abx as per ID -continue pain control as per pain management -OOB/WBAT with PT -elevate as needed -will follow clinical exam -plan discussed with Dr. Jean-Baptiste who was in agreement
--- NOTE | 2017-04-20 13:20 | PN ---
Progress Note (short form) - Note Progress Note: GI Note ( covering Christiano Lee) : Above notes appreciated. Aruna has no GI complaints, Abd: BS normoactive, not distended, nontender. Impression: Cirrhosis stable in the face of cellulitis. Dr Lee will return tomorrow.
[2017-04-20] MEDS ORDERED: INSULIN (NOVOLOG MIX 70/30) 100 UNITS/ML MDV SQ ONE (17:11)
[2017-04-20] MEDS: INSULIN DETEMIR 100 UNITS/ML MDV SQ SCH (22:49)
--- NOTE | 2017-04-20 23:23 | PN ---
Progress Note, Physician - Current Medication List Current Medications: Active Medications Cyclobenzaprine HCl (Flexeril -) 5 mg PO TID PRN PRN Reason: MUSCLE SPASMS Last Admin: 04/18/17 23:07 Dose: 5 mg Piperacillin Sod/Tazobactam Sod (Zosyn 3.375gm Ivpb (Pre-Docked)) 50 mls @ 100 mls/hr IVPB Q8H-IV [facility] PRN Reason: Protocol Last Admin: 04/20/17 18:00 Dose: 100 mls/hr Vancomycin HCl 1,250 mg/ (Dextrose) 250 mls @ 250 mls/hr IVPB BID@0200,1400 [facility] PRN Reason: Protocol Last Admin: 04/20/17 14:31 Dose: 250 mls/hr Insulin Aspart (Novolog Vial Sliding Scale -) 1 vial SQ ACHS [facility] PRN Reason: Protocol Last Admin: 04/20/17 22:51 Dose: 9 units Insulin Aspart (Novolog Mix 70/30 Vial) 27 units SQ BIDAC [facility] Last Admin: 04/20/17 16:51 Dose: 27 units Insulin Detemir (Levemir Vial) 40 units SQ HS [facility] Last Admin: 04/20/17 22:49 Dose: 40 units Lisinopril (Prinivil) 20 mg PO DAILY [facility] Last Admin: 04/20/17 10:25 Dose: 20 mg Metformin HCl (Glucophage -) 1,000 mg PO BID@0700,1630 [facility] Last Admin: 04/20/17 16:49 Dose: 1,000 mg Morphine Sulfate (Ms Contin -) 15 mg PO BID [facility] Last Admin: 04/20/17 10:24 Dose: Not Given Morphine Sulfate (Morphine Injection -) 4 mg IVPUSH Q4H PRN Last Admin: 04/20/17 21:29 Dose: 4 mg Ranitidine HCl (Zantac -) 150 mg PO BID [facility] Last Admin: 04/20/17 22:50 Dose: 150 mg - Objective Vital Signs: Vital Signs Temperature 98.8 F 04/20/17 17:47 Pulse Rate 89 04/20/17 17:47 Respiratory Rate 20 04/20/17 17:47 Blood Pressure 155/89 04/20/17 17:47 O2 Sat by Pulse Oximetry (%) 99 04/20/17 09:00 Labs: CBC, BMP 04/18/17 07:40 04/18/17 07:40 INR, PTT INR 1.26 (0.82-1.09) H 04/10/17 12:18 Problem List - Problems (1) Cellulitis Code(s): L03.90 - CELLULITIS, UNSPECIFIED Qualifiers: Site of cellulitis: extremity Site of cellulitis of extremity: lower extremity Laterality: right Qualified Code(s): L03.115 - Cellulitis of right lower limb (2) Hypertension Code(s): I10 - ESSENTIAL (PRIMARY) HYPERTENSION Qualifiers: Hypertension type: essential hypertension Qualified Code(s): I10 - Essential (primary) hypertension (3) Diabetes Code(s): E11.9 - TYPE 2 DIABETES MELLITUS WITHOUT COMPLICATIONS (4) GERD (gastroesophageal reflux disease) Code(s): K21.9 - GASTRO-ESOPHAGEAL REFLUX DISEASE WITHOUT ESOPHAGITIS Qualifiers: Esophagitis presence: without esophagitis Qualified Code(s): K21.9 - Gastro-esophageal reflux disease without esophagitis (5) Substance abuse Code(s): F19.10 - OTHER PSYCHOACTIVE SUBSTANCE ABUSE, UNCOMPLICATED
[2017-04-21] MEDS: morphine CARPU-JECT 4 MG/1 ML DISP.SYRIN IVPUSH PRN ×5 (01:19→18:07)
[2017-04-21] MEDS: PIPERACILLIN/TAZOB 3.375 GM 50 ML IVPB SCH ×2 (02:08→10:02)
[2017-04-21] MEDS: VANCOMYCIN 1,250 MG in DEXTROSE 5%-WATER - 250 ML IVPB SCH ×2 (02:53→14:39)
[2017-04-21] MEDS: INSULIN (NOVOLOG MIX 70/30) 100 UNITS/ML MDV SQ SCH ×2 (06:22→16:38)
[2017-04-21] MEDS: metFORMIN HCL 500 MG TABLET (FP) PO SCH ×2 (06:23→16:37)
[2017-04-21] MEDS: INSULIN SLIDING SCALE (NOVOLOG) 1 VIAL SQ SCH ×4 (06:23→21:23)
[2017-04-21] MEDS ORDERED: INSULIN (NOVOLOG) ASPART 100 UNITS/ML 10ML VIAL ONE ×2 (06:24→21:03)
[2017-04-21] MEDS: morphine SO4 SUSTAINED ACTING 15 MG TABLET.SA PO SCH ×2 (09:59→21:24)
[2017-04-21] MEDS: RANITIDINE HCL 150 MG TABLET (FP) PO SCH ×2 (10:02→21:24)
[2017-04-21] MEDS: LISINOPRIL 20 MG TABLET (FP) PO SCH (10:02)
--- NOTE | 2017-04-21 13:29 | PN ---
Progress Note (short form) - Note Progress Note: S: Patient is having persistent pain, slight improvement from yesterday. Denies fever, chills. O: VSS. Afebrile. NAD. Right knee exam: Dressings removed. Prepatellar bursa with mild surrounding erythema, improved. No purulence. No drainage. Swelling/erythema noted to the distal leg, also improved. ROM 12-100 secondary to pain. Calves with slight tenderness. Negative Xavi's. NVID. ESR 62 Wound cultures with no growth A/P: 46 y/o female s/p I&D for R knee prepatellar bursitis -wound continues to improve -continue IV abx as per ID -continue pain control as per pain management -OOB/WBAT with PT -elevate as needed -dispo planning to short term rehab -plan discussed with Dr. Kahn who was in agreement
[2017-04-21] MEDS ORDERED: INSULIN (NOVOLOG MIX 70/30) 100 UNITS/ML MDV SQ ONE (16:36)
--- NOTE | 2017-04-21 16:39 | PN ---
Progress Note, Physician History of Present Illness: patient stable still with lot of pain ortho note noted - Current Medication List Current Medications: Active Medications Amoxicillin/Clavulanate Potassium (Augmentin - 875mg Tablet) 1 tab PO BID@0800, 1730 [facility] Cyclobenzaprine HCl (Flexeril -) 5 mg PO TID PRN PRN Reason: MUSCLE SPASMS Last Admin: 04/18/17 23:07 Dose: 5 mg Insulin Aspart (Novolog Vial Sliding Scale -) 1 vial SQ ACHS [facility] PRN Reason: Protocol Last Admin: 04/21/17 11:40 Dose: 8 units Insulin Aspart (Novolog Mix 70/30 Vial) 27 units SQ BIDAC [facility] Last Admin: 04/21/17 06:22 Dose: 27 units Insulin Detemir (Levemir Vial) 40 units SQ HS [facility] Last Admin: 04/20/17 22:49 Dose: 40 units Lisinopril (Prinivil) 20 mg PO DAILY [facility] Last Admin: 04/21/17 10:02 Dose: 20 mg Metformin HCl (Glucophage -) 1,000 mg PO BID@0700,1630 [facility] Last Admin: 04/21/17 06:23 Dose: 1,000 mg Morphine Sulfate (Ms Contin -) 15 mg PO BID [facility] Last Admin: 04/21/17 09:59 Dose: Not Given Morphine Sulfate (Morphine Injection -) 4 mg IVPUSH Q4H PRN Last Admin: 04/21/17 14:01 Dose: 4 mg Ranitidine HCl (Zantac -) 150 mg PO BID [facility] Last Admin: 04/21/17 10:02 Dose: 150 mg - Objective Vital Signs: Vital Signs Temperature 97.9 F 04/21/17 14:09 Pulse Rate 81 04/21/17 14:09 Respiratory Rate 20 04/21/17 10:00 Blood Pressure 128/73 04/21/17 14:09 O2 Sat by Pulse Oximetry (%) 99 04/20/17 22:00 Constitutional: Yes: No Distress, Calm Cardiovascular: Yes: Regular Rate and Rhythm Respiratory: Yes: Regular, CTA Bilaterally Gastrointestinal: Yes: Normal Bowel Sounds, Soft Musculoskeletal: Yes: Other Extremities: Yes: Other Wound/Incision: Yes: Dressing Dry and Intact 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: Yes: Alert, Oriented Labs: CBC, BMP 04/18/17 07:40 04/18/17 07:40 INR, PTT INR 1.26 (0.82-1.09) H 04/10/17 12:18 Assessment/Plan drug abuse knee collection r/o abscess of the knee joint methadone use r/o osteo collection knee joint plan will stop vanco and zosyn switch to oral augmentin will see how leg looks tomorrow rest as per primary team
[2017-04-21] MEDS: AMOX TR/POT CLAV 875MG/125MG TABLETS (FP) PO SCH (17:23)
--- NOTE | 2017-04-21 20:31 | PN ---
Progress Note, Physician History of Present Illness: Pt unable to ambulate without pain - Current Medication List Current Medications: Active Medications Amoxicillin/Clavulanate Potassium (Augmentin - 875mg Tablet) 1 tab PO BID@0800, 1730 [facility] Last Admin: 04/21/17 17:23 Dose: 1 tab Cyclobenzaprine HCl (Flexeril -) 5 mg PO TID PRN PRN Reason: MUSCLE SPASMS Last Admin: 04/18/17 23:07 Dose: 5 mg Insulin Aspart (Novolog Vial Sliding Scale -) 1 vial SQ ACHS [facility] PRN Reason: Protocol Last Admin: 04/21/17 16:38 Dose: 9 units Insulin Aspart (Novolog Mix 70/30 Vial) 27 units SQ BIDAC [facility] Last Admin: 04/21/17 16:38 Dose: 27 units Insulin Detemir (Levemir Vial) 40 units SQ HS [facility] Last Admin: 04/20/17 22:49 Dose: 40 units Lisinopril (Prinivil) 20 mg PO DAILY [facility] Last Admin: 04/21/17 10:02 Dose: 20 mg Metformin HCl (Glucophage -) 1,000 mg PO BID@0700,1630 [facility] Last Admin: 04/21/17 16:37 Dose: 1,000 mg Morphine Sulfate (Ms Contin -) 15 mg PO BID [facility] Last Admin: 04/21/17 09:59 Dose: Not Given Morphine Sulfate (Morphine Injection -) 4 mg IVPUSH Q4H PRN Last Admin: 04/21/17 18:07 Dose: 4 mg Ranitidine HCl (Zantac -) 150 mg PO BID [facility] Last Admin: 04/21/17 10:02 Dose: 150 mg - Objective Vital Signs: Vital Signs Temperature 98.5 F 04/21/17 18:00 Pulse Rate 83 04/21/17 18:00 Respiratory Rate 20 04/21/17 18:00 Blood Pressure 132/85 04/21/17 18:00 O2 Sat by Pulse Oximetry (%) 99 04/20/17 22:00 Constitutional: Yes: Calm Eyes: Yes: WNL HENT: Yes: WNL Neck: Yes: Supple Cardiovascular: Yes: WNL, Regular Rate and Rhythm Respiratory: Yes: WNL, Regular, CTA Bilaterally Gastrointestinal: Yes: WNL, Normal Bowel Sounds, Soft Extremities: Yes: Other (decreased erytherma/swelling Lt knee) Labs: CBC, BMP 04/18/17 07:40 04/18/17 07:40 INR, PTT INR 1.26 (0.82-1.09) H 04/10/17 12:18 Problem List - Problems (1) Cellulitis Assessment/Plan: S/P I&D of lt knee Change to po antibxs DC planning in am to STR Doppler of RLE negative for DVT CT scan RLE showed cellulitis w/ distension of prepatellar bursa ?possibility of infectious bursitis/abscess Will dc IV morphine Cont MS contin Code(s): L03.90 - CELLULITIS, UNSPECIFIED Qualifiers: Site of cellulitis: extremity Site of cellulitis of extremity: lower extremity Laterality: right Qualified Code(s): L03.115 - Cellulitis of right lower limb (2) Hypertension Assessment/Plan: Cont lisinopril Code(s): I10 - ESSENTIAL (PRIMARY) HYPERTENSION Qualifiers: Hypertension type: essential hypertension Qualified Code(s): I10 - Essential (primary) hypertension (3) Diabetes Assessment/Plan: Cont levemir/novolog Cont sliding scale Code(s): E11.9 - TYPE 2 DIABETES MELLITUS WITHOUT COMPLICATIONS (4) GERD (gastroesophageal reflux disease) Code(s): K21.9 - GASTRO-ESOPHAGEAL REFLUX DISEASE WITHOUT ESOPHAGITIS Qualifiers: Esophagitis presence: without esophagitis Qualified Code(s): K21.9 - Gastro-esophageal reflux disease without esophagitis (5) Substance abuse Code(s): F19.10 - OTHER PSYCHOACTIVE SUBSTANCE ABUSE, UNCOMPLICATED
[2017-04-21] MEDS: INSULIN DETEMIR 100 UNITS/ML MDV SQ SCH (21:24)
[2017-04-22] MEDS: INSULIN SLIDING SCALE (NOVOLOG) 1 VIAL SQ SCH ×2 (06:15→11:36)
[2017-04-22] MEDS: INSULIN (NOVOLOG MIX 70/30) 100 UNITS/ML MDV SQ SCH (06:15)
[2017-04-22] MEDS: metFORMIN HCL 500 MG TABLET (FP) PO SCH ×2 (06:15→06:19)
--- NOTE | 2017-04-22 09:43 | PN ---
Progress Note, Physician History of Present Illness: main issue is pain now patient doing well - Current Medication List Current Medications: Active Medications Amoxicillin/Clavulanate Potassium (Augmentin - 875mg Tablet) 1 tab PO BID@0800, 1730 [facility] Last Admin: 04/21/17 17:23 Dose: 1 tab Cyclobenzaprine HCl (Flexeril -) 5 mg PO TID PRN PRN Reason: MUSCLE SPASMS Last Admin: 04/18/17 23:07 Dose: 5 mg Insulin Aspart (Novolog Vial Sliding Scale -) 1 vial SQ ACHS [facility] PRN Reason: Protocol Last Admin: 04/22/17 06:15 Dose: 10 units Insulin Aspart (Novolog Mix 70/30 Vial) 27 units SQ BIDAC [facility] Last Admin: 04/22/17 06:15 Dose: 27 units Insulin Detemir (Levemir Vial) 40 units SQ HS [facility] Last Admin: 04/21/17 21:24 Dose: Not Given Lisinopril (Prinivil) 20 mg PO DAILY [facility] Last Admin: 04/21/17 10:02 Dose: 20 mg Metformin HCl (Glucophage -) 1,000 mg PO BID@0700,1630 [facility] Last Admin: 04/22/17 06:19 Dose: Not Given Morphine Sulfate (Ms Contin -) 15 mg PO BID [facility] Last Admin: 04/21/17 21:24 Dose: 15 mg Ranitidine HCl (Zantac -) 150 mg PO BID [facility] Last Admin: 04/21/17 21:24 Dose: 150 mg - Objective Vital Signs: Vital Signs Temperature 98.0 F 04/22/17 06:12 Pulse Rate 88 04/22/17 06:12 Respiratory Rate 20 04/22/17 06:12 Blood Pressure 135/91 04/22/17 06:12 O2 Sat by Pulse Oximetry (%) 97 04/21/17 21:00 Constitutional: Yes: Calm, Moderate Distress Neck: Yes: Supple Cardiovascular: Yes: Regular Rate and Rhythm Respiratory: Yes: Regular, CTA Bilaterally Gastrointestinal: Yes: Normal Bowel Sounds, Soft Musculoskeletal: Yes: WNL Extremities: Yes: Other Wound/Incision: Yes: Dressing Dry and Intact 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: Yes: Alert, Oriented Psychiatric: Yes: Alert Labs: CBC, BMP 04/18/17 07:40 04/18/17 07:40 INR, PTT INR 1.26 (0.82-1.09) H 04/10/17 12:18 Assessment/Plan Problem List - Problems (1) Cellulitis Code(s): L03.90 - CELLULITIS, UNSPECIFIED Qualifiers: Site of cellulitis: extremity Site of cellulitis of extremity: lower extremity Laterality: right Qualified Code(s): L03.115 - Cellulitis of right lower limb (2) Hypertension Code(s): I10 - ESSENTIAL (PRIMARY) HYPERTENSION Qualifiers: Hypertension type: essential hypertension Qualified Code(s): I10 - Essential (primary) hypertension (3) Diabetes Code(s): E11.9 - TYPE 2 DIABETES MELLITUS WITHOUT COMPLICATIONS (4) GERD (gastroesophageal reflux disease) Code(s): K21.9 - GASTRO-ESOPHAGEAL REFLUX DISEASE WITHOUT ESOPHAGITIS Qualifiers: Esophagitis presence: without esophagitis Qualified Code(s): K21.9 - Gastro-esophageal reflux disease without esophagitis (5) Substance abuse Code(s): F19.10 - OTHER PSYCHOACTIVE SUBSTANCE ABUSE, UNCOMPLICATED plan continue oral abx physio rest as per primary ortho
[2017-04-22] MEDS: AMOX TR/POT CLAV 875MG/125MG TABLETS (FP) PO SCH (09:45)
[2017-04-22] MEDS: morphine SO4 SUSTAINED ACTING 15 MG TABLET.SA PO SCH (11:28)
[2017-04-22] MEDS: LISINOPRIL 20 MG TABLET (FP) PO SCH (11:28)
[2017-04-22] MEDS: RANITIDINE HCL 150 MG TABLET (FP) PO SCH (11:28)
[2017-04-22] MEDS ORDERED: INSULIN (NOVOLOG) ASPART 100 UNITS/ML 10ML VIAL ONE (11:35)
[2017-04-22 15:07] VITALS: BP 139/89; PULSE 90; TEMP 98.3
== END 2017-04-22 15:15 | DRG 571 ==
LOC: JER 10:53 → JERBED 15:01 → J6S 18:17
PROVIDERS: ADMIT Internal Medicine; ATTEND Internal Medicine
PROC: 0S9C3ZZ Drainage of Right Knee Joint, Percutaneous Approach (ICD-10-PCS; 2017-04-10)
PROC: 0JBQ0ZZ Excision of Right Foot Subcutaneous Tissue and Fascia, Open Approach (ICD-10-PCS; principal; 2017-04-15)
PROC: 0Y9F0ZX Drainage of Right Knee Region, Open Approach, Diagnostic (ICD-10-PCS; 2017-04-18)
DX: L03.115 Cellulitis of right lower limb (principal); L97.919 Non-pressure chronic ulcer of unspecified part of right lower leg with unspecified severity; I10 Essential (primary) hypertension; K21.9 Gastro-esophageal reflux disease without esophagitis; Z79.4 Long term (current) use of insulin; E10.65 Type 1 diabetes mellitus with hyperglycemia; M70.41 Prepatellar bursitis, right knee; B35.1 Tinea unguium; F32.9 Major depressive disorder, single episode, unspecified; K74.60 Unspecified cirrhosis of liver; E10.42 Type 1 diabetes mellitus with diabetic polyneuropathy; F11.10 Opioid abuse, uncomplicated; F10.10 Alcohol abuse, uncomplicated
CPT/HCPCS: 36415; 72050-TC; 73562-TC-RT; 73700-TC-RT; 76705-TC; 76882; 80053; 80076; 80307; 82009; 82150; 82945; 82947; 82977; 83036; 83605; 83615; 84157; 84703; 85025; 85610; 85651; 86140; 86850; 86900; 86901; 87040; 87070; 87075; 87205; 89051; 93971-TC; 97116-GP; 97161-GP; 99284-25; G0480; J1644

== ENCOUNTER 2017-04-25 08:42 | Inpatient (IN) | payer OTHER ==
[2017-04-25 10:41] VITALS: BMI 28.3
--- NOTE | 2017-04-25 12:17 | HP ---
Admission [facility] Chief Complaint: REHAB TX FOR ALCOHOL DEPENDENCE Allergies/Adverse Reactions: Allergies Allergy/AdvReac Type Severity Reaction Status Date / Time shellfish derived Allergy Severe Hives Verified 04/25/17 11:03 strawberry Allergy Severe Hives Verified 04/25/17 11:03 No Known Drug Allergies Allergy Verified 04/25/17 11:03 History of Present Illness: 46 Y/O H/F WITH A HX OF ALCOHOL DEPENDENCE SEEKING REHAB TX. PT WAS HERE IN DETOX ON 04/08/17 TO 04/10/17 BEFORE TRANSFER TO [facility] DUE TO CELLULITIS RIGHT FOOT WHERE SHE COMPLETED DETOX. CAME BACK HERE TODAY FOR REHAB. Exam Limitations: No Limitations - Ebola screening Have you traveled outside of the country in the last 21 days: No Have you had contact with anyone from an Ebola affected area: No Have you been sick,other than usual withdrawal symptoms: No Do you have a fever: No - Review of Systems Constitutional: Chills, Night Sweats, Changes in sleep (ON TRAZODONE AND REMERON ) EENT: reports: Blurred Vision, Tearing, Nose Congestion Respiratory: reports: No Symptoms reported Cardiac: reports: No Symptoms Reported GI: reports: Diarrhea, Nausea : reports: Frequency Musculoskeletal: reports: Back Pain, Joint Pain, Muscle Pain, Other (RIGHT KNEE WITH OLD TRUAMA DUE TO FALL; RIGHT SOLE WITH HEALING CELLULITIS.) Integumentary: reports: Other (CELLULITIS RIGHT FOOT.) Neuro: reports: Headache, Tremors, Unsteady Gait Endocrine: reports: No Symptoms Reported Hematology: reports: No Symptoms Reported Psychiatric: reports: Orientated x3, Anxious, Depressed Other Systems: Reviewed and Negative Patient History - Patient Medical History Hx Anemia: No Hx Asthma: No Hx Chronic Obstructive Pulmonary Disease (COPD): No Hx Cancer: No Hx Cardiac Disorders: No Hx Congestive Heart Failure: No Hx Hypertension: Yes (ON MED) Hx Hypercholesterolemia: No Hx Pacemaker: No HX Cerebrovascular Accident: No Hx Seizures: No Hx Dementia: No Hx Diabetes: Yes (IDDM-LANTUS HS ) Hx Gastrointestinal Disorders: Yes (acid reflux-NEXIUM) Hx Liver Disease: No Hx Genitourinary Disorders: No Hx Sexually Transmitted Disorders: No Hx Renal Disease (ESRD): No Hx Thyroid Disease: No Hx Human Immunodeficiency Virus (HIV): No (NEGATIVE HX) Hx Hepatitis C: No (NEGATIVE ) Hx Depression: Yes (AND ANXIETY--ON MEDS) Hx Suicide Attempt: No (DENIES) Hx Bipolar Disorder: No Hx Schizophrenia: No - Patient Surgical History Past Surgical History: Yes Hx Neurologic Surgery: No Hx Cataract Extraction: No Hx Cardiac Surgery: No Hx Lung Surgery: No Hx Breast Surgery: No Hx Breast Biopsy: No Hx Abdominal Surgery: Yes (TUBAL LIGATION IN 2005) Hx Appendectomy: No Hx Cholecystectomy: No Hx Genitourinary Surgery: No Hx Section: No Hx Orthopedic Surgery: Yes (neck, 11/30/2015 (fall);SX COCYX DUE TO OSTEOMYLITIS - 2010) Other Surgical History: tubal ligation in 2005 Anesthesia Reaction: No - PPD History Date: 09/21/16 Results: 0 mm - Reproductive History Last Menstrual Period: 03/31/17 - Smoking Cessation Smoking history: Never smoked Have you smoked in the past 12 months: No Aproximately how many cigarettes per day: 0 Cigars Per Day: 0 Hx Chewing Tobacco Use: No - Substance & Tx. History Hx Alcohol Use: Yes (VODKA) Hx Substance Use: Yes (COCAINE) Substance Use Type: Alcohol, Cocaine Hx Substance Use Treatment: Yes ([facility]) - Substances Abused Alcohol Route: Oral Frequency: Daily Amount used: Liter of vodka Age of first use: 44 Date of Last Use: 04/25/17 Family Disease History - Family Disease History Family Disease History: Diabetes: Grandparent (alcohol), Father, Mother, Other: Grandparent Admission Physical Exam S - Vital Signs Vital Signs: Vital Signs - 24 hr 04/25/17 10:27 Temperature 98.4 F Pulse Rate 103 H Respiratory 20 Rate Blood Pressure 159/91 - Physical General Appearance: Yes: Mild Distress, Anxious HEENTM: Yes: EOMI, Normocephalic, HIGINIO, Pharynx Normal, Nasal Congestion, Rhinorrhea Respiratory: Yes: Chest Non-Tender, Lungs Clear, Normal Breath Sounds, No Respiratory Distress Neck: Yes: Supple, Trachea in good position Breast: Yes: Breast Exam Deferred Cardiology: Yes: Regular Rhythm, S1, S2, Tachycardia Abdominal: Yes: Normal Bowel Sounds, Non Tender, Soft Genitourinary: Yes: Other (N/C) Back: Yes: Within Normal Limits Musculoskeletal: Yes: full range of Motion, Gait Steady Extremities: Yes: Normal Range of Motion, Non-Tender 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 (2) Chronic liver disease and cirrhosis Current Visit: Yes Status: Chronic (3) Diabetes mellitus, insulin dependent (IDDM), uncontrolled Current Visit: Yes Status: Chronic Qualifiers: Diabetes mellitus complication status: without complication Qualified Code(s): E10.9 - Type 1 diabetes mellitus without complications (4) Alcohol dependence with uncomplicated withdrawal Current Visit: Yes Status: Chronic (5) GERD (gastroesophageal reflux disease) Current Visit: Yes Status: Chronic Qualifiers: Esophagitis presence: without esophagitis Qualified Code(s): K21.9 - Gastro-esophageal reflux disease without esophagitis (6) Hypertension Current Visit: Yes Status: Chronic Qualifiers: Hypertension type: essential hypertension Qualified Code(s): I10 - Essential (primary) hypertension (7) Peripheral neuropathy Current Visit: Yes Status: Chronic Qualifiers: Peripheral neuropathy type: polyneuropathy, alcohol-induced Qualified Code(s): G62.1 - Alcoholic polyneuropathy Cleared for Admission [facility] - Detox or Rehab Claeared for Rehab Admission: Yes [facility] Breath Alcohol Content Breath Alcohol Content: 0.008 Urine Pregancy Test - Result Urine Test Results: Negative- NO Line Present Urine Drug Screen - Results Drug Screen Negative: No Urine Drug Screen Results: DEEPAK-Cocaine
[2017-04-25] MEDS ORDERED: MAG HYDROX/AL HYDROX/SIMETH 30 ML UNIT-DOSE CUP PO PRN (12:31)
[2017-04-25] MEDS ORDERED: ACETAMINOPHEN 325 MG TABLET (FP) PO PRN (12:31)
[2017-04-25] MEDS ORDERED: guaiFENesin/D-METHORPHAN HB 10 ML UNIT-DOSE CUPS PO PRN (12:31)
[2017-04-25] MEDS ORDERED: diphenhydrAMINE HCL 50 MG CAPSULE PO PRN (12:31)
[2017-04-25] MEDS ORDERED: MAGNESIUM CITRATE 300 ML BOTTLE PO PRN (12:31)
[2017-04-25] MEDS ORDERED: MAGNESIUM HYDROX 2400MG/30ML ORAL SUSPENSION 30 ML CUP PO PRN (12:31)
[2017-04-25] MEDS ORDERED: P-EPHED 60MG/TRIPROLIDI 2.5MG TABLET PO PRN (12:31)
[2017-04-25] MEDS ORDERED: COLLOIDAL OATMEAL 1 BAR EACH TP PRN (12:36)
--- NOTE | 2017-04-25 13:34 | HP ---
Psychiatrist Admission - Data Date of interview: 04/25/17 Admission source: [facility] Identifying data: This is one of the multiple admissions to inpatient rehabilitation for this 46 years old single female mother of 6 .Children reside with the patient's mother.Patient is undomiciled,supported by SSD. Medical History: Significant for HTN,Liver cirrhosis,GERD,IDDM,Peripheral neuropathy. Psychiatric History: Patient reports first contact with psychiatrist was in 2003 in sleep disorder clinic in [place].She was dx with Depression .patient reports one psychiatric admission to [facility] in 2016 after her boyfriend from Heart attack.No psychiatric care for a few months at least.Patient obtains psychiatric medications mostly while she is on tretament in Detox/rehabs. Physical/Sexual Abuse/Trauma History: denies Vital Signs: Vital Signs - 24 hr 04/25/17 10:27 Temperature 98.4 F Pulse Rate 103 H Respiratory 20 Rate Blood Pressure 159/91 Allergies/Adverse Reactions: Allergies Allergy/AdvReac Type Severity Reaction Status Date / Time shellfish derived Allergy Severe Hives Verified 04/25/17 11:03 strawberry Allergy Severe Hives Verified 04/25/17 11:03 No Known Drug Allergies Allergy Verified 04/25/17 11:03 Date of last physical exam: 04/25/17 Concur with the findings of this exam: Yes - Substance Abuse/Tx History Hx Alcohol Use: Yes (drinking sinc 28 yo,heavy sicne 44(1 ltr of vodka)) Hx Substance Use: Yes (cocaine on/off) Substance Use Type: Alcohol, Cocaine Hx Substance Use Treatment: Yes (5 years of sobriety longest,completed this program in 2016) - Admission Criteria Previous failed treatment: Yes Poor recovery environment: Yes Comorbidities: Yes Lacks judgement: Yes Mental Status Exam - Mental Status Exam Alert and Oriented to: Time, Place, Person Cognitive Function: Grossly Intact Patient Appearance: Unkempt Mood: Elated Affect: Labile Patient Behavior: Talkative, Cooperative Speech Pattern: Clear Voice Loudness: Mildly Loud Thought Process: Goal Oriented Thought Disorder: Not Present Hallucinations: Denies Suicidal Ideation: Denies Homicidal Ideation: Denies Insight/Judgement: Fair Sleep: Difficulty falling asleep Appetite: Fair Muscle strength/Tone: Normal Gait/Station: Normal Psychiatric Findings - Problem List ([place] 1, 2,3) (1) Alcohol dependence with uncomplicated withdrawal Current Visit: Yes Status: Chronic (2) Chronic liver disease and cirrhosis Current Visit: Yes Status: Chronic (3) Diabetes mellitus, insulin dependent (IDDM), uncontrolled Current Visit: Yes Status: Chronic Qualifiers: Diabetes mellitus complication status: without complication Qualified Code(s): E10.9 - Type 1 diabetes mellitus without complications (4) Hypertension Current Visit: Yes Status: Chronic Qualifiers: Hypertension type: essential hypertension Qualified Code(s): I10 - Essential (primary) hypertension (5) Peripheral neuropathy Current Visit: Yes Status: Chronic Qualifiers: Peripheral neuropathy type: polyneuropathy, alcohol-induced Qualified Code(s): G62.1 - Alcoholic polyneuropathy (6) GERD (gastroesophageal reflux disease) Current Visit: Yes Status: Chronic Qualifiers: Esophagitis presence: without esophagitis Qualified Code(s): K21.9 - Gastro-esophageal reflux disease without esophagitis (7) Alcohol-induced mood disorder Current Visit: Yes Status: Chronic (8) Cocaine dependence Current Visit: Yes Status: Chronic - Initial Treatment Plan Initial Treatment Plan: Lyrica 75 mg po hs,Trazodone 100 mg po hs,Neurontin 300 mg po tid.Will monitor progress.
[2017-04-25] MEDS: BACITRACIN 0.9 GM PACKET TP SCH ×2 (14:06→21:16)
[2017-04-25] MEDS: LISINOPRIL 20 MG TABLET (FP) PO SCH (14:06)
[2017-04-25] MEDS: GABAPENTIN 400 MG CAPSULE (FP) PO SCH ×2 (14:06→21:16)
[2017-04-25] MEDS: LOPERAMIDE HCL 2 MG CAPSULE PO PRN (14:06)
[2017-04-25] MEDS: TOLNAFTATE 1% CREAM 15 GM TUBE TP SCH ×2 (14:07→22:19)
[2017-04-25 14:42] LABS: MCH 30.5 pg (25.7-33.7); MEAN CELL VOLUME 89.8 fl (80-96); MEAN PLT VOLUME 8.5 fl (7.5-11.1); PLATELET COUNT 204 K/MM3 (134-434); RDW 15.3 % (11.6-15.6); WHITE BLOOD COUNT 5.4 K/mm3 (4.0-10.0)
[2017-04-25 15:04] LABS: ALBUMIN 2.9 g/dl (3.4-5.0); ALK PHOS 155 U/L (45-117); ANION GAP 13 (8-16); BILIRUBIN,TOTAL 0.7 mg/dL (0.2-1.0); CALCIUM 8.4 mg/dL (8.5-10.1); CO2 22 mmol/L (21-32); CREATININE 0.9 mg/dL (0.55-1.02); SGOT/AST 37 U/L (15-37); SGPT/ALT 43 U/L (12-78); TOT PROT 8.1 g/dl (6.4-8.2)
[2017-04-25 15:23] LABS: GLUCOSE,RANDOM 420 mg/dL (74-106)
[2017-04-25] MEDS ORDERED: INSULIN (NOVOLOG) ASPART 100 UNITS/ML 10ML VIAL SQ ONE (17:45)
[2017-04-25] MEDS ORDERED: INSULIN (NOVOLOG) ASPART 100 UNITS/ML 10ML VIAL ONE (17:46)
[2017-04-25] MEDS: CYCLOBENZAPRINE HCL 10 MG TABLET (FP) PO PRN (18:40)
[2017-04-25] MEDS ORDERED: PT OWN MED DRAWER 7, Y5N ONE (19:35)
[2017-04-25 20:18] LABS: URINE APPEARANCE CLEAR; URINE BILIRUBIN NEGATIVE (NEGATIVE); URINE COLOR LTYELLOW; URINE GLUCOSE (UA) 3+ (NEGATIVE); URINE KETONE TRACE (NEGATIVE); URINE NITRITE NEGATIVE (NEGATIVE); URINE PROTEIN NEGATIVE (NEGATIVE); URINE UROBILINOGEN NEGATIVE E.U./dl (0.2-1.0)
[2017-04-25 20:24] LABS: URINE BLOOD 2+ (NEGATIVE); URINE LEUK ESTERASE TRACE (NEGATIVE)
[2017-04-25 21:08] LABS: URINE BACTERIA MODERATE /hpf (NONE SEEN); URINE RBC 2 /hpf (0-3); URINE WBC 6 /hpf (3-5)
[2017-04-25] MEDS: RANITIDINE HCL 150 MG TABLET (FP) PO SCH (21:16)
[2017-04-25] MEDS: traZODone HCL 100 MG TABLET (FP) PO SCH (21:16)
[2017-04-25] MEDS: THIAMINE HCL 100 MG TABLET (FP) PO SCH (21:16)
[2017-04-25] MEDS: PREGABALIN 75 MG CAPSULE PO SCH (21:18)
[2017-04-25] MEDS: INSULIN DETEMIR 100 UNITS/ML MDV SQ SCH (21:21)
[2017-04-26] MEDS: CYCLOBENZAPRINE HCL 10 MG TABLET (FP) PO PRN (03:56)
[2017-04-26] MEDS: INSULIN (NOVOLOG) ASPART 100 UNITS/ML 10ML VIAL SQ SCH ×3 (07:09→17:04)
[2017-04-26] MEDS: GABAPENTIN 400 MG CAPSULE (FP) PO SCH ×3 (07:09→21:14)
[2017-04-26] MEDS ORDERED: INSULIN (NOVOLOG) ASPART 100 UNITS/ML 10ML VIAL ONE ×4 (07:29→23:28)
[2017-04-26] MEDS ORDERED: PT OWN MED DRAWER 7, Y5N ONE (08:52)
[2017-04-26] MEDS: TOLNAFTATE 1% CREAM 15 GM TUBE TP SCH ×2 (10:00→21:16)
[2017-04-26] MEDS: BACITRACIN 0.9 GM PACKET TP SCH ×2 (10:01→21:17)
[2017-04-26] MEDS: RANITIDINE HCL 150 MG TABLET (FP) PO SCH ×2 (10:01→21:14)
[2017-04-26] MEDS: LISINOPRIL 20 MG TABLET (FP) PO SCH (10:01)
[2017-04-26] MEDS: PRENATAL VITAMINS W/ FOLIC ACID TABLET (FP) PO SCH (10:01)
[2017-04-26] MEDS: hydrOXYzine PAMOATE 25 MG CAPSULE (FP) PO PRN ×2 (13:42→18:43)
[2017-04-26] MEDS: IBUPROFEN 400 MG TABLET (FP) PO PRN (18:44)
[2017-04-26] MEDS: THIAMINE HCL 100 MG TABLET (FP) PO SCH (21:14)
[2017-04-26] MEDS: LOPERAMIDE HCL 2 MG CAPSULE PO PRN (21:14)
[2017-04-26] MEDS: PREGABALIN 75 MG CAPSULE PO SCH (21:14)
[2017-04-26] MEDS: traZODone HCL 100 MG TABLET (FP) PO SCH (21:14)
[2017-04-26] MEDS: INSULIN DETEMIR 100 UNITS/ML MDV SQ SCH (21:16)
[2017-04-26] MEDS ORDERED: INSULIN DETEMIR 100 UNITS/ML MDV SQ ONE (22:52)
[2017-04-26] MEDS: INSULIN SLIDING SCALE (NOVOLOG) 1 VIAL SQ SCH (23:29)
[2017-04-27] MEDS: LOPERAMIDE HCL 2 MG CAPSULE PO PRN (06:15)
[2017-04-27] MEDS: GABAPENTIN 400 MG CAPSULE (FP) PO SCH ×3 (06:15→21:27)
[2017-04-27] MEDS: CYCLOBENZAPRINE HCL 10 MG TABLET (FP) PO PRN (06:15)
[2017-04-27] MEDS: INSULIN SLIDING SCALE (NOVOLOG) 1 VIAL SQ SCH ×4 (06:16→21:27)
[2017-04-27] MEDS: INSULIN DETEMIR 100 UNITS/ML MDV SQ SCH ×2 (08:02→17:12)
[2017-04-27] MEDS ORDERED: PT OWN MED DRAWER 7, Y5N ONE (08:49)
[2017-04-27] MEDS: RANITIDINE HCL 150 MG TABLET (FP) PO SCH ×2 (09:53→21:26)
[2017-04-27] MEDS: BACITRACIN 0.9 GM PACKET TP SCH ×2 (09:53→21:27)
[2017-04-27] MEDS: PRENATAL VITAMINS W/ FOLIC ACID TABLET (FP) PO SCH (09:53)
[2017-04-27] MEDS: LISINOPRIL 20 MG TABLET (FP) PO SCH (09:53)
[2017-04-27] MEDS: hydrOXYzine PAMOATE 25 MG CAPSULE (FP) PO PRN ×2 (09:54→21:29)
[2017-04-27] MEDS: TOLNAFTATE 1% CREAM 15 GM TUBE TP SCH ×2 (09:54→21:26)
[2017-04-27] MEDS ORDERED: INSULIN (NOVOLOG) ASPART 100 UNITS/ML 10ML VIAL ONE ×2 (16:39→22:21)
[2017-04-27] MEDS ORDERED: INSULIN DETEMIR 100 UNITS/ML MDV SQ ONE ×2 (16:41→22:22)
[2017-04-27] MEDS: IBUPROFEN 400 MG TABLET (FP) PO PRN (17:11)
[2017-04-27] MEDS: THIAMINE HCL 100 MG TABLET (FP) PO SCH (21:25)
[2017-04-27] MEDS: PREGABALIN 75 MG CAPSULE PO SCH (21:27)
[2017-04-27] MEDS: traZODone HCL 100 MG TABLET (FP) PO SCH (21:27)
[2017-04-28] MEDS: GABAPENTIN 400 MG CAPSULE (FP) PO SCH ×3 (06:13→21:27)
[2017-04-28] MEDS: hydrOXYzine PAMOATE 25 MG CAPSULE (FP) PO PRN ×2 (06:13→13:18)
[2017-04-28] MEDS: LOPERAMIDE HCL 2 MG CAPSULE PO PRN (06:13)
[2017-04-28] MEDS: INSULIN SLIDING SCALE (NOVOLOG) 1 VIAL SQ SCH ×4 (06:14→21:30)
[2017-04-28] MEDS: INSULIN DETEMIR 100 UNITS/ML MDV SQ SCH ×2 (06:15→17:06)
[2017-04-28] MEDS ORDERED: INSULIN (NOVOLOG) ASPART 100 UNITS/ML 10ML VIAL ONE ×4 (06:45→22:46)
[2017-04-28] MEDS ORDERED: PT OWN MED DRAWER 7, Y5N ONE (08:39)
[2017-04-28] MEDS: TOLNAFTATE 1% CREAM 15 GM TUBE TP SCH ×2 (10:36→21:30)
[2017-04-28] MEDS: LISINOPRIL 20 MG TABLET (FP) PO SCH (10:36)
[2017-04-28] MEDS: BACITRACIN 0.9 GM PACKET TP SCH ×2 (10:36→21:28)
[2017-04-28] MEDS: RANITIDINE HCL 150 MG TABLET (FP) PO SCH ×2 (10:36→21:27)
[2017-04-28] MEDS: PRENATAL VITAMINS W/ FOLIC ACID TABLET (FP) PO SCH (10:36)
--- NOTE | 2017-04-28 11:28 | EKG ---
Test Reason : Blood Pressure : / mmHG Vent. Rate : 095 BPM Atrial Rate : 095 BPM P-R Int : 148 ms QRS Dur : 072 ms QT Int : 370 ms P-R-T Axes : 037 017 017 degrees QTc Int : 464 ms NORMAL SINUS RHYTHM NORMAL ECG WHEN COMPARED WITH ECG OF 08-APR-2017 16:27, QT HAS SHORTENED Confirmed by VALERIY CASAS MD ([id number]) on 04/28/2017 11:27:35 AM Referred By: Sena Mason Confirmed By:VALERIY CASAS MD
--- NOTE | 2017-04-28 16:28 | PN ---
S Progress Note Note: Pt. was on metformin at home but did not tell us on admission.We'll resume metformin at 500mg bid,monitor bgm as before.
[2017-04-28] MEDS: metFORMIN HCL 500 MG TABLET (FP) PO SCH (17:06)
[2017-04-28] MEDS: traZODone HCL 100 MG TABLET (FP) PO SCH (21:27)
[2017-04-28] MEDS: THIAMINE HCL 100 MG TABLET (FP) PO SCH (21:27)
[2017-04-28] MEDS: PREGABALIN 75 MG CAPSULE PO SCH (21:28)
[2017-04-29] MEDS: INSULIN SLIDING SCALE (NOVOLOG) 1 VIAL SQ SCH ×4 (06:31→21:18)
[2017-04-29] MEDS: INSULIN DETEMIR 100 UNITS/ML MDV SQ SCH ×2 (06:32→17:06)
[2017-04-29] MEDS: GABAPENTIN 400 MG CAPSULE (FP) PO SCH ×3 (06:32→21:13)
[2017-04-29] MEDS ORDERED: INSULIN (NOVOLOG) ASPART 100 UNITS/ML 10ML VIAL ONE ×4 (06:33→21:17)
[2017-04-29] MEDS: MENTHOL/PHENOL 1 EACH UD MM PRN ×2 (06:34→17:08)
[2017-04-29] MEDS: metFORMIN HCL 500 MG TABLET (FP) PO SCH (06:34)
[2017-04-29] MEDS ORDERED: INSULIN (NOVOLOG) ASPART 100 UNITS/ML 10ML VIAL SQ ONE (07:44)
--- NOTE | 2017-04-29 07:44 | PN ---
[facility] Progress Note Note: METFORMIN D/'ED . PT REPORTS ALLERGY RXN
[2017-04-29] MEDS: BACITRACIN 0.9 GM PACKET TP SCH ×2 (10:24→21:13)
[2017-04-29] MEDS: PRENATAL VITAMINS W/ FOLIC ACID TABLET (FP) PO SCH (10:24)
[2017-04-29] MEDS: TOLNAFTATE 1% CREAM 15 GM TUBE TP SCH ×2 (10:25→21:13)
[2017-04-29] MEDS: RANITIDINE HCL 150 MG TABLET (FP) PO SCH ×2 (10:25→21:13)
[2017-04-29] MEDS: LISINOPRIL 20 MG TABLET (FP) PO SCH (10:25)
[2017-04-29] MEDS: hydrOXYzine PAMOATE 25 MG CAPSULE (FP) PO PRN ×2 (10:27→21:17)
[2017-04-29 12:29] LABS: CALCIUM 9.2 mg/dL (8.5-10.1); CREATININE 0.9 mg/dL (0.55-1.02)
[2017-04-29] MEDS ORDERED: glipiZIDE 5 MG TABLET (FP) PO ONE (12:40)
[2017-04-29] MEDS: TRIAMCINOLONE ACET 0.5% OINT 15 GM TUBE TP SCH ×3 (14:30→21:13)
[2017-04-29] MEDS ORDERED: PT OWN MED DRAWER 7, Y5N ONE ×3 (15:58→19:22)
[2017-04-29] MEDS: SULFAMETHOXAZOLE/TRIMETHOPRIM 800MG/160MG D.S. TABLET PO SCH ×2 (15:59→21:13)
[2017-04-29] MEDS: glipiZIDE 10 MG TABLET (FP) PO SCH (17:07)
[2017-04-29] MEDS: PREGABALIN 75 MG CAPSULE PO SCH (21:13)
[2017-04-29] MEDS: traZODone HCL 100 MG TABLET (FP) PO SCH (21:13)
[2017-04-29] MEDS: THIAMINE HCL 100 MG TABLET (FP) PO SCH (21:14)
[2017-04-29] MEDS: CYCLOBENZAPRINE HCL 10 MG TABLET (FP) PO PRN (21:17)
[2017-04-30] MEDS: INSULIN DETEMIR 100 UNITS/ML MDV SQ SCH (06:12)
[2017-04-30] MEDS: INSULIN SLIDING SCALE (NOVOLOG) 1 VIAL SQ SCH ×2 (06:12→11:10)
[2017-04-30] MEDS: glipiZIDE 10 MG TABLET (FP) PO SCH (06:13)
[2017-04-30] MEDS: GABAPENTIN 400 MG CAPSULE (FP) PO SCH ×2 (06:13→15:00)
[2017-04-30] MEDS ORDERED: INSULIN (NOVOLOG) ASPART 100 UNITS/ML 10ML VIAL ONE (06:23)
[2017-04-30 06:52] VITALS: BP 145/88; PULSE 99; TEMP 98.1
--- NOTE | 2017-04-30 07:54 | PN ---
[facility] Progress Note Note: PT WITH CONTINUOUS ELEVATED BGM STARTED ON GLYTROL INCREASE LEVEMIR STILL UNABLE TO GET READING ON GLUCOMETER NOW WITH K 5.5 NA 128 EKG: NSR; POSSIBLE L ATRIAL ENLARGEMENT; BORDERLINE ECG PT IS A/O X 3 NAD Vital Signs Temperature 98.1 F 04/30/17 06:51 Pulse Rate 99 H 04/30/17 06:51 Respiratory Rate 18 04/30/17 06:51 Blood Pressure 145/88 04/30/17 06:51 O2 Sat by Pulse Oximetry (%) Laboratory Results - last 24 hr 04/25/17 04/25/17 04/26/17 17:09 21:16 07:08 Sodium Potassium Chloride Carbon Dioxide Anion Gap BUN Creatinine POC Glucometer [phone] Random Glucose Calcium 04/26/17 04/26/17 04/26/17 11:59 13:43 14:53 Sodium Potassium Chloride Carbon Dioxide Anion Gap BUN Creatinine POC Glucometer > 600 > 600 > 600 Random Glucose Calcium 04/26/17 04/26/17 04/27/17 17:04 21:14 06:14 Sodium Potassium Chloride Carbon Dioxide Anion Gap BUN Creatinine POC Glucometer > 600 > 600 > 600 Random Glucose Calcium 04/27/17 04/27/17 04/27/17 07:30 11:01 17:09 Sodium Potassium Chloride Carbon Dioxide Anion Gap BUN Creatinine POC Glucometer > 600 > 600 > 600 Random Glucose Calcium 04/27/17 04/28/17 04/28/17 21:26 06:12 11:40 Sodium Potassium Chloride Carbon Dioxide Anion Gap BUN Creatinine POC Glucometer > 600 570 > 600 Random Glucose Calcium 04/28/17 04/28/17 04/28/17 12:39 15:03 17:05 Sodium Potassium Chloride Carbon Dioxide Anion Gap BUN Creatinine POC Glucometer > 600 > 600 > 600 Random Glucose Calcium 04/29/17 04/29/17 04/29/17 06:29 08:55 11:07 Sodium 128 L Potassium 5.5 H D Chloride 94 L Carbon Dioxide 22 Anion Gap 12 BUN 28 H D Creatinine 0.9 POC Glucometer 526 > 600 Random Glucose 692 H* D Calcium 9.2 EKG WILL TRANSFER CLIENT TO [facility] FOR HYPERGLYCEMIA AND R/O DKA CASE D/W DR. CONKLIN PT MAY RETURN IF NOTE ADMITTED MUST CALL FOR BED ONCE PT HAS BEEN ADMITTED.
[2017-04-30] MEDS: SULFAMETHOXAZOLE/TRIMETHOPRIM 800MG/160MG D.S. TABLET PO SCH (10:00)
[2017-04-30] MEDS: RANITIDINE HCL 150 MG TABLET (FP) PO SCH (10:00)
[2017-04-30] MEDS: BACITRACIN 0.9 GM PACKET TP SCH (10:00)
[2017-04-30] MEDS: PRENATAL VITAMINS W/ FOLIC ACID TABLET (FP) PO SCH (10:00)
[2017-04-30] MEDS: TRIAMCINOLONE ACET 0.5% OINT 15 GM TUBE TP SCH ×2 (10:00→15:00)
[2017-04-30] MEDS: LISINOPRIL 20 MG TABLET (FP) PO SCH (10:00)
[2017-04-30] MEDS: TOLNAFTATE 1% CREAM 15 GM TUBE TP SCH (10:00)
[2017-04-30] MEDS ORDERED: sitaGLIPtin PHOSPHATE 50 MG TABLET PO ONE (13:48)
--- NOTE | 2017-04-30 13:52 | PN ---
S Progress Note Note: BGMs have remained high even though we started her on glipizide and increase Levemir to 50 units BID. All BGMs are still over 600mg/DL. P : start Januvia 50mg daily.
--- NOTE | 2017-04-30 13:59 | PN ---
S Progress Note Note: Pt. was started on Bactrim DS on 04/29/17 because of Bacteriuria. She was tx. for cellulitis RLE & sepsis earlier this month. She was transferred to ED because of uncontrolled DM.
[2017-05-01] MEDS ORDERED: sitaGLIPtin PHOSPHATE 50 MG TABLET PO SCH (07:00)
--- NOTE | 2017-05-01 16:38 | EKG ---
Test Reason : Blood Pressure : / mmHG Vent. Rate : 100 BPM Atrial Rate : 100 BPM P-R Int : 134 ms QRS Dur : 082 ms QT Int : 350 ms P-R-T Axes : 063 024 029 degrees QTc Int : 451 ms NORMAL SINUS RHYTHM POSSIBLE LEFT ATRIAL ENLARGEMENT BORDERLINE ECG WHEN COMPARED WITH ECG OF 26-APR-2017 06:17, NO SIGNIFICANT CHANGE WAS FOUND Confirmed by OCTAVIO ALVAREZ MD ([id number]) on 05/01/2017 4:37:59 PM Referred By: Sena Mason Confirmed By:OCTAVIO ALVAREZ MD
== END 2017-04-30 15:00 | disposition short-term general hospital (02) | DRG 895 ==
LOC: YASAS 08:42 → Y3E 11:42
PROVIDERS: ADMIT Psychiatry & Neurology Psychiatry; ATTEND Psychiatry & Neurology Psychiatry
PROC: HZ42ZZZ Group Counseling for Substance Abuse Treatment, Cognitive-Behavioral (ICD-10-PCS; principal; 2017-04-25)
DX: F10.230 Alcohol dependence with withdrawal, uncomplicated (principal); F14.20 Cocaine dependence, uncomplicated; L03.115 Cellulitis of right lower limb; F10.24 Alcohol dependence with alcohol-induced mood disorder; I10 Essential (primary) hypertension; E10.65 Type 1 diabetes mellitus with hyperglycemia; Z79.4 Long term (current) use of insulin; Z79.84 Long term (current) use of oral hypoglycemic drugs; K74.60 Unspecified cirrhosis of liver; G62.1 Alcoholic polyneuropathy; K21.9 Gastro-esophageal reflux disease without esophagitis; R00.0 Tachycardia, unspecified; R82.71 Bacteriuria
CPT/HCPCS: 36415; 80048; 80053; 81003; 81015; 85027; 86593; 93005; 93010

== ENCOUNTER 2017-04-30 08:58 | Inpatient (IN) | payer OTHER ==
[2017-04-30] MEDS ORDERED: SODIUM CHLORIDE 1,000 ML IV ONE (09:15)
--- NOTE | 2017-04-30 09:15 | PDOC ---
History of Present Illness - General History Source: Patient Exam Limitations: No Limitations - History of Present Illness Initial Comments: 04/30/17 09:36 The patient is a 46 year old female, BIBA from [facility] with a significant past medical history of Cocaine abuse, EtOH abuse, HTN, GERD, liver cirrhosis, and Type 1 Diabetes who presents to the emergency department with elevated blood sugar and left sided abdominal pain. She describes her abdominal pain as constant and often radiating to into her back. She notes recently being diagnosed with pancreatitis. Patient history reveals her going into DKA in the past. The patient reports normally taking insulin for her DM, and has not taken her insulin treatment for about 2 days.Patient was admitted 04/28/17 for EtOH rehab, initially taken off any diabetes medication when initially admitted by mistake and placed back on metformin, with an adverse allergic reaction. Blood sugar was 692 after drawing blood yesterday, and [facility] staff reports this morning being unable to get fingerstick this morning due to high blood sugar. She denies recent fevers, chills, headache or dizziness. She denies recent nausea, vomit, diarrhea or constipation. She denies recent dysuria, frequency, urgency or hematuria. She denies recent chest pain or shortness of breath. Allergies: See Nursing Notes Past surgical history: Prior orthopedic neck surgery. Social history: Cocaine and EtOH abuse Primary Care Physician: N/A <Fritz France - Last Filed: 04/30/17 09:36> <Michael Daniels - Last Filed: 04/30/17 12:21> - General Chief Complaint: Blood Sugar Problem Stated Complaint: ELEVATED SUGAR, ABD PAIN Time Seen by Provider: 04/30/17 09:14 Past History <Fritz France - Last Filed: 04/30/17 09:36> - Past Medical History Anemia: No Asthma: No Cancer: No Cardiac Disorders: No CVA: No COPD: No CHF: No Dementia: No Diabetes: Yes (IDDM-LANTUS HS ) GI Disorders: Yes (acid reflux-NEXIUM pancreatitis) Disorders: No HTN: Yes (ON MED) Hypercholesterolemia: No Kidney Stones: No Liver Disease: No Suicide Attempt (Hx): No (DENIES) Seizures: No Thyroid Disease: No - Surgical History Abdominal Surgery: Yes (TUBAL LIGATION IN 2005) Appendectomy: No Cardiac Surgery: No Cholecystectomy: No Lung Surgery: No Neurologic Surgery: No Orthopedic Surgery: Yes (neck, 11/30/2015 (fall);SX COCYX DUE TO OSTEOMYLITIS- 2010) - Reproductive History PID: No - Psycho/Social/Smoking Cessation Hx Anxiety: Yes Suicidal Ideation: No Smoking History: Never smoked Have you smoked in the past 12 months: No Number of Cigarettes Smoked Daily: 0 Cigars Per Day: 0 Information on smoking cessation initiated: No 'Breaking Loose' booklet given: 05/30/16 Hx Alcohol Use: Yes Drug/Substance Use Hx: No (pt denies) Substance Use Type: Alcohol, Cocaine Hx Substance Use Treatment: Yes ([facility] [place]) <Michael Daniels - Last Filed: 04/30/17 12:21> - Past Medical History Allergies/Adverse Reactions: Allergies Allergy/AdvReac Type Severity Reaction Status Date / Time shellfish derived Allergy Severe Hives Verified 04/25/17 11:03 strawberry Allergy Severe Hives Verified 04/25/17 11:03 No Known Drug Allergies Allergy Verified 04/25/17 11:03 metformin AdvReac Verified 04/29/17 08:00 metformin AdvReac Uncoded 04/28/17 23:19 Home Medications: Ambulatory Orders Insulin Sliding Scale [Novolog Vial Sliding Scale -] 0 units SQ TIDAC 05/30/16 Ibuprofen [Motrin -] 800 mg PO Q8H PRN #60 tablet 11/27/16 Lisinopril [Prinivil] 20 mg PO DAILY #30 tablet 11/27/16 Ranitidine [Zantac -] 150 mg PO BID #60 tablet 11/27/16 Gabapentin [Neurontin -] 400 mg PO TID #90 cap 04/09/17 Trazodone HCl [Desyrel -] 200 mg PO HS #30 tablet 04/09/17 Glipizide 10 mg PO BID 04/30/17 Hydroxyzine HCl [Atarax -] 25 mg PO QID PRN 04/30/17 Insulin (Levemir) [Levemir Flexpen -] 50 units SQ BID 04/30/17 Pregabalin [Lyrica] 75 mg PO HS 04/30/17 Thiamine HCl [B-1] 100 mg PO HS 04/30/17 Review of Systems - Review of Systems Constitutional: No: Chills, Fever Respiratory: No: Cough, Shortness of Breath Cardiac (ROS): No: Chest Pain ABD/GI: Yes: Nausea. No: Diarrhea, Vomiting : Yes: Frequency. No: Dysuria, Hematuria Endocrine: Yes: Increased Thirst All Other Systems: Reviewed and Negative <Michael Daniels - Last Filed: 04/30/17 12:21> *Physical Exam - Vital Signs Last Vital Signs Temp Pulse Resp BP Pulse Ox 98.1 F 91 H 20 121/74 100 04/30/17 09:00 04/30/17 09:00 04/30/17 09:00 04/30/17 09:00 04/30/17 09:00 - Physical Exam Comments: 04/30/17 09:36 GENERAL: The patient is awake, alert, and fully oriented, in no acute distress. HEAD: Normal with no signs of trauma. EYES: Pupils equal, round and reactive to light, extraocular movements intact, sclera anicteric, conjunctiva clear with no pallor. ENT: Ears normal, nares patent, oropharynx clear without exudates. Dry mucous membranes. NECK: Normal range of motion, supple without lymphadenopathy, JVD, or masses. LUNGS: Breath sounds equal, clear to auscultation bilaterally. No wheeze/ crackles. HEART: Regular rate and rhythm, normal S1 and S2 without murmur or rub. ABDOMEN: Epigastric and left quadrant tenderness to palpation. Soft/ nondistended. BS wnl. No guarding or rebound. No palpable masses. No hepatosplenomegaly. EXTREMITIES: Normal range of motion, no edema. No clubbing or cyanosis. No cords , erythema, or tenderness. NEUROLOGICAL: Cranial nerves II through XII grossly intact. Normal speech, normal gait. PSYCH: Normal mood, normal affect. SKIN: Superficial dermatitis over the right knee from tape/adhesive but no superimposed cellulitis at this time. Healed wound to the right plantar sole. <Fritz France - Last Filed: 04/30/17 09:36> - Vital Signs Last Vital Signs Temp Pulse Resp BP Pulse Ox 98.1 F 91 H 20 121/74 100 04/30/17 09:00 04/30/17 09:00 04/30/17 09:00 04/30/17 09:00 04/30/17 09:00 <Michael Daniels - Last Filed: 04/30/17 12:21> Heart Score/ECG Review #1 ECG reviewed & interpreted by me at: 09:50 General ECG Interpretation: Sinus Rhythm, Normal Rate (90), Normal Intervals ( qrs 84, qtc 455, no peaked t waves), No acute ischemic changes <Michael Daniels - Last Filed: 04/30/17 12:21> ED Treatment Course - LABORATORY CBC & Chemistry Diagram: 04/30/17 09:21 04/30/17 09:21 <Michael Daniels - Last Filed: 04/30/17 12:21> Medical Decision Making - Medical Decision Making 04/30/17 09:40 A portion of this note was documented by scribe services under my direction. I have reviewed the details of the note, within reason, and agree with the documentation with the following case summary and management plan written by me. 46-year-old female well-known to this institution with history of substance abuse including alcohol and cocaine, insulin-dependent diabetes with history of frequent DKA, chronic pancreatitis, sent from [facility] for persistent hyperglycemia. Pt was discharged for RLE cellulitis, was unable to check back into [facility] so was off meds for 2 days, readmitted to [facility] over the weekend, then noted to have glucose 692 on chemistry so send to ED to r/o DKA. Pt with polydypsia, polyuria, chronic abd pain 2/2 pancreatitis. VSS dry mucosa epigastric/LUQ ttp resolved cellulitis 46-year-old female with history of recurring DKA presents with persistent hyperglycemia, rule out DKA. Question acute on chronic pancreatitis. Labs including CBC and serum acetone IV fluids, insulin, morphine for abdominal pain Reassess 04/30/17 12:17 No leukocytosis, labs notable for hyperglycemia and elevated lipase, lactate 2.1. No evidence of DKA, anion gap normal and pH 7.4. Receiving IV insulin and IV fluids, pain control. Will admit for hyperglycemia in setting of acute on chronic pancreatitis. Accepted for inpatient med/surge by Dr. Correia, signout given to AMINATA Luz. <Michael Daniels - Last Filed: 04/30/17 12:21> *DC/Admit/Observation/Transfer - Attestations Scribe Attestion: 04/30/17 09:37 Documentation prepared by Fritz France, acting as nuclear medicine medical director for Michael Daniels MD. <Fritz France - Last Filed: 04/30/17 09:36> - Discharge Dispostion Admit: Yes <Michael Daniels - Last Filed: 04/30/17 12:21> Diagnosis at time of Disposition: Insulin dependent diabetes mellitus, Substance abuse, Hyperglycemia Pancreatitis Qualifiers: Chronicity: chronic Pancreatitis type: unspecified pancreatitis type Qualified Code(s): K86.1 - Other chronic pancreatitis - Discharge Dispostion Condition at time of disposition: Fair - Referrals Referrals: Kenyetta Siddiqi RN [Emergency Nurse] -
[2017-04-30] MEDS ORDERED: INSULIN REGULAR HUMAN 100 UNITS/ML *VIAL IVPUSH ONE ×4 (09:17→15:01)
[2017-04-30] MEDS ORDERED: morphine CARPU-JECT 4 MG/1 ML DISP.SYRIN IVPUSH ONE (09:43)
[2017-04-30] MEDS ORDERED: INSULIN REGULAR HUMAN 100 UNITS/ML *VIAL ONE ×3 (09:47→14:59)
[2017-04-30] MEDS ORDERED: morphine CARPU-JECT 4 MG/1 ML DISP.SYRIN ONE (09:47)
[2017-04-30 09:49] LABS: URINE APPEARANCE CLEAR; URINE BILIRUBIN NEGATIVE (NEGATIVE); URINE COLOR STRAW; URINE GLUCOSE (UA) 3+ (NEGATIVE); URINE KETONE NEGATIVE (NEGATIVE); URINE LEUK ESTERASE NEGATIVE (NEGATIVE); URINE NITRITE NEGATIVE (NEGATIVE); URINE PROTEIN NEGATIVE (NEGATIVE); URINE UROBILINOGEN NEGATIVE E.U./dl (0.2-1.0)
[2017-04-30 09:56] LABS: URINE BLOOD 1+ (NEGATIVE)
[2017-04-30 09:58] LABS: URINE RBC 1 /hpf (0-3); URINE WBC 1 /hpf (3-5)
[2017-04-30 10:06] LABS: BASOPHIL 0.1 % (0-2.0); MCH 30.7 pg (25.7-33.7); MCHC 33.6 g/dl (32.0-36.0); MEAN CELL VOLUME 91.3 fl (80-96); MEAN PLT VOLUME 8.4 fl (7.5-11.1); NEUTROPHILS 64.5 % (42.8-82.8); PLATELET COUNT 197 K/MM3 (134-434); RDW 15.6 % (11.6-15.6); WHITE BLOOD COUNT 5.2 K/mm3 (4.0-10.0)
[2017-04-30 10:25] LABS: INR 1.08 (0.82-1.09); PROTHROMBIN TIME (PATIENT) 11.9 SEC (9.98-11.88)
[2017-04-30 10:30] LABS: ALBUMIN 2.6 g/dl (3.4-5.0); CALCIUM 9.1 mg/dL (8.5-10.1); COCKROFT - GAULT 81.7785; CREATININE 1.1 mg/dL (0.55-1.02)
[2017-04-30 10:34] LABS: BILIRUBIN,TOTAL 0.3 mg/dL (0.2-1.0); TROPONIN I 0.03 ng/ml (0.00-0.05)
[2017-04-30 11:03] LABS: ARTERIAL BLD GAS O2 SATURATION 96.4 % (90-98.9); ARTERIAL BLOOD GAS BASE EXCESS 0.6 meq/l (-2-2); ARTERIAL BLOOD GAS HCO3 24.7 meq/L (22-26); ARTERIAL BLOOD GAS PO2 84.1 mmHg (80-100); ARTERIAL BLOOD GAS pH 7.41 (7.35-7.45)
[2017-04-30 11:04] LABS: ALLENS TEST POSITIVE; ART PUNCT SITE RIGHT RADIAL; LPM/O2% 21%; PT. ON O2? NO; TYPE OF O2 ROOM AIR
[2017-04-30 11:17] LABS: ACETONE SERUM NEGATIVE (NEGATIVE)
[2017-04-30] MEDS ORDERED: HYDROmorphone HCL CARPU-JECT 1 MG/1 ML DISP.SYRIN IVPUSH ONE (12:00)
[2017-04-30] MEDS ORDERED: HYDROmorphone HCL CARPU-JECT 1 MG/1 ML DISP.SYRIN ONE (12:12)
--- NOTE | 2017-04-30 12:35 | HP ---
CHIEF COMPLAINT: PCP: HISTORY OF PRESENT ILLNESS: The patient is a 46 year old female, BIBA from [facility] with a significant past medical history of Cocaine abuse, EtOH abuse, HTN, GERD, liver cirrhosis, and Type 1 Diabetes who presents to the emergency department with elevated blood sugar and left sided abdominal pain. She describes her abdominal pain as constant and often radiating to into her back. She notes recently being diagnosed with pancreatitis. Patient history reveals her going into DKA in the past. The patient reports normally taking insulin for her DM, and has not taken her insulin treatment for about 2 days.Patient was admitted 04/28/17 for EtOH rehab, initially taken off any diabetes medication when initially admitted by mistake and placed back on metformin, with an adverse allergic reaction. Blood sugar was 692 after drawing blood yesterday, and [facility] staff reports this morning being unable to get fingerstick this morning due to high blood sugar. She denies recent fevers, chills, headache or dizziness. She denies recent nausea, vomit, diarrhea or constipation. She denies recent dysuria, frequency, urgency or hematuria. She denies recent chest pain or shortness of breath. Allergies: See MAR Past surgical history: Prior orthopedic neck surgery. Social history: Cocaine and EtOH abuse Primary Care Physician: Does not have one ER course was notable for: (1) hyperglycemia: received IVF and insuln coverage (2) pancreatitis noted, pain meds given (3) Recent Travel: denies PAST MEDICAL HISTORY: pancreatitis, IDDM, HTN PAST SURGICAL HISTORY: neck surgery, TIPS Social History: Smoking: current every day user Alcohol:current every day user Drugs: cocaine Family History: Allergies shellfish derived Allergy (Severe, Verified 04/25/17 11:03) Hives strawberry Allergy (Severe, Verified 04/25/17 11:03) Hives No Known Drug Allergies Allergy (Verified 04/25/17 11:03) metformin Adverse Reaction (Verified 04/29/17 08:00) metformin Adverse Reaction (Uncoded 04/28/17 23:19) HOME MEDICATIONS: Home Medications Medication Instructions Recorded Insulin Sliding Scale [Novolog 0 units SQ TIDAC 05/30/16 Vial Sliding Scale -] Ibuprofen [Motrin -] 800 mg PO Q8H PRN #60 tablet 11/27/16 Lisinopril [Prinivil] 20 mg PO DAILY #30 tablet 11/27/16 Ranitidine [Zantac -] 150 mg PO BID #60 tablet 11/27/16 Gabapentin [Neurontin -] 400 mg PO TID #90 cap 04/09/17 Trazodone HCl [Desyrel -] 200 mg PO HS #30 tablet 04/09/17 Glipizide 10 mg PO BID 04/30/17 Hydroxyzine HCl [Atarax -] 25 mg PO QID PRN 04/30/17 Insulin (Levemir) [Levemir Flexpen 50 units SQ BID 04/30/17 -] Pregabalin [Lyrica] 75 mg PO HS 04/30/17 Thiamine HCl [B-1] 100 mg PO HS 04/30/17 REVIEW OF SYSTEMS CONSTITUTIONAL: Absent: fever, chills, diaphoresis, generalized weakness, malaise, loss of appetite, weight change HEENT: Absent: rhinorrhea, nasal congestion, throat pain, throat swelling, difficulty swallowing, mouth swelling, ear pain, eye pain, visual changes CARDIOVASCULAR: Absent: chest pain, syncope, palpitations, irregular heart rate, lightheadedness , peripheral edema RESPIRATORY: Absent: cough, shortness of breath, dyspnea with exertion, orthopnea, wheezing, stridor, hemoptysis GASTROINTESTINAL: Absent:(+) abdominal pain, abdominal distension, nausea, vomiting, diarrhea, constipation, melena, hematochezia GENITOURINARY: Absent: dysuria, frequency, urgency, hesitancy, hematuria, flank pain, genital pain MUSCULOSKELETAL: Absent: myalgia, arthralgia, joint swelling, back pain, neck pain SKIN: Absent: rash, itching, pallor HEMATOLOGIC/IMMUNOLOGIC: Absent: easy bleeding, easy bruising, lymphadenopathy, frequent infections ENDOCRINE: Absent: unexplained weight gain, unexplained weight loss, heat intolerance, cold intolerance NEUROLOGIC: Absent: headache, focal weakness or paresthesias, dizziness, unsteady gait, seizure, mental status changes, bladder or bowel incontinence PSYCHIATRIC: Absent: anxiety, depression, suicidal or homicidal ideation, hallucinations. PHYSICAL EXAMINATION Vital Signs - 24 hr 04/30/17 09:00 Temperature 98.1 F Pulse Rate 91 H Respiratory 20 Rate Blood Pressure 121/74 O2 Sat by Pulse 100 Oximetry (%) GENERAL: Awake, alert, and fully oriented, in no acute distress. HEAD: Normal with no signs of trauma. EYES: Pupils equal, round and reactive to light, extraocular movements intact, sclera anicteric, conjunctiva clear. No lid lag. EARS, NOSE, THROAT: Ears normal, nares patent, oropharynx clear without exudates. Moist mucous membranes. NECK: Normal range of motion, supple without lymphadenopathy, JVD, or masses. LUNGS: Breath sounds equal, clear to auscultation bilaterally. No wheezes, and no crackles. No accessory muscle use. HEART: Regular rate and rhythm, normal S1 and S2 without murmur, rub or gallop. ABDOMEN: Soft, + RUQ pain and tender, not distended, normoactive bowel sounds, no guarding, no rebound, no masses. No hepatomegaly or splenomegaly. MUSCULOSKELETAL: Normal range of motion at all joints. No bony deformities or tenderness. No CVA tenderness. UPPER EXTREMITIES: 2+ pulses, warm, well-perfused. No cyanosis. No clubbing. No peripheral edema. LOWER EXTREMITIES: 2+ pulses, warm, well-perfused. No calf tenderness. No peripheral edema. NEUROLOGICAL: Cranial nerves II-XII intact. Normal speech. Normal gait. PSYCHIATRIC: Cooperative. Good eye contact. Appropriate mood and affect. SKIN: Warm, dry, normal turgor, no rashes or lesions noted, normal capillary refill. Laboratory Results - last 24 hr 04/30/17 04/30/17 04/30/17 09:21 09:21 09:21 WBC 5.2 RBC 3.81 Hgb 11.7 Hct 34.7 MCV 91.3 MCHC 33.6 RDW 15.6 Plt Count 197 MPV 8.4 Neutrophils % 64.5 D Lymphocytes % 23.2 D Monocytes % 12.2 H Eosinophils % 0.0 Basophils % 0.1 INR 1.08 Puncture Site ABG pH ABG pCO2 at Pt Temp ABG pO2 at Pt Temp ABG HCO3 ABG O2 Sat (Measured) ABG O2 Content ABG Base Excess Giovanni Test O2 Delivery Device Oxygen Flow Rate Sodium Potassium Chloride Carbon Dioxide Anion Gap BUN Creatinine Creat Clearance w eGFR Random Glucose Lactic Acid Calcium Total Bilirubin AST ALT Alkaline Phosphatase Creatine Kinase Troponin I Total Protein Albumin Lipase Urine Color Straw Urine Appearance Clear Urine pH 6.0 Urine Protein Negative Urine Glucose (UA) 3+ H Urine Ketones Negative Urine Blood 1+ H Urine Nitrite Negative Urine Bilirubin Negative Urine Urobilinogen Negative Ur Leukocyte Esterase Negative Urine RBC 1 Urine WBC 1 Ur Epithelial Cells Rare Acetone, Qual 04/30/17 04/30/17 04/30/17 09:21 09:21 09:21 WBC RBC Hgb Hct MCV MCHC RDW Plt Count MPV Neutrophils % Lymphocytes % Monocytes % Eosinophils % Basophils % INR Puncture Site ABG pH ABG pCO2 at Pt Temp ABG pO2 at Pt Temp ABG HCO3 ABG O2 Sat (Measured) ABG O2 Content ABG Base Excess Giovanni Test O2 Delivery Device Oxygen Flow Rate Sodium 126 L Potassium 5.8 H Chloride 92 L Carbon Dioxide 25 Anion Gap 9 BUN 28 H Creatinine 1.1 H D Creat Clearance w eGFR 53.96 Random Glucose 737 H* Lactic Acid 2.1 H* Calcium 9.1 Total Bilirubin 0.3 D AST 41 H ALT 47 Alkaline Phosphatase 322 H D Creatine Kinase 114 Troponin I 0.03 Total Protein 8.0 Albumin 2.6 L Lipase 1442 H Urine Color Urine Appearance Urine pH Urine Protein Urine Glucose (UA) Urine Ketones Urine Blood Urine Nitrite Urine Bilirubin Urine Urobilinogen Ur Leukocyte Esterase Urine RBC Urine WBC Ur Epithelial Cells Acetone, Qual Negative L 04/30/17 11:02 WBC RBC Hgb Hct MCV MCHC RDW Plt Count MPV Neutrophils % Lymphocytes % Monocytes % Eosinophils % Basophils % INR Puncture Site Right radial ABG pH 7.41 ABG pCO2 at Pt Temp 40.0 ABG pO2 at Pt Temp 84.1 ABG HCO3 24.7 ABG O2 Sat (Measured) 96.4 ABG O2 Content 15.0 ABG Base Excess 0.6 Giovanni Test Positive O2 Delivery Device Room air Oxygen Flow Rate 21% Sodium Potassium Chloride Carbon Dioxide Anion Gap BUN Creatinine Creat Clearance w eGFR Random Glucose Lactic Acid Calcium Total Bilirubin AST ALT Alkaline Phosphatase Creatine Kinase Troponin I Total Protein Albumin Lipase Urine Color Urine Appearance Urine pH Urine Protein Urine Glucose (UA) Urine Ketones Urine Blood Urine Nitrite Urine Bilirubin Urine Urobilinogen Ur Leukocyte Esterase Urine RBC Urine WBC Ur Epithelial Cells Acetone, Qual ASSESSMENT/PLAN: This 46 yr old female who is well known to us was in [facility] in Rehab for alcohol and drug abuse. She was found to have elevated glucose levels and was sent in for evaluation and treatment 1. Hyperglycemia nonketotic -regular insulin coverage -siding scale -finger sticks ac and ah -ADA diet -IVF -consult placed to Endocrine 2. Pancreatitis -IVF -pain medications -GI consult 3. alcohol rehab -librium is withdrawal symptoms develop -return to [facility] for completion of rehabilitation once cleared medically. - admitting pt med surg inpt for hyperglycemia, pancreatitis. Visit type - Emergency Visit Emergency Visit: Yes ED Registration Date: 04/30/17 Care time: The patient presented to the Emergency Department on the above date and was hospitalized for further evaluation of their emergent condition. - New Patient This patient is new to me today: Yes Date on this admission: 04/30/17 - Critical Care Critical Care patient: No
[2017-04-30] MEDS: SODIUM CHLORIDE 1,000 ML IV SCH (14:31)
--- NOTE | 2017-04-30 15:06 | PN ---
Progress Note (short form) - Note Progress Note: 300 pm Called by ER nursing staff Pt had received 1 IVF liter ns, total of 8 units of regular insulin Tested currently with "overrange" status on glucometer 10 units regular insulin given, will recheck in one hour. IVF at rate of 125 hanging. Pt awaiting a bed for admission. 530 pm noted glucose trending to 361 after insulin. Will continue to monitor. Pt to have a ADA diet tray. Spoke with staff to repeat glucose Visit type - Emergency Visit Emergency Visit: Yes ED Registration Date: 04/30/17 Care time: The patient presented to the Emergency Department on the above date and was hospitalized for further evaluation of their emergent condition. - New Patient This patient is new to me today: Yes Date on this admission: 04/30/17 - Critical Care Critical Care patient: No - Discharge Referral Referred to [facility] No
[2017-04-30] MEDS ORDERED: GABAPENTIN 100 MG CAPSULE (FP) ONE (15:13)
[2017-04-30] MEDS: GABAPENTIN 400 MG CAPSULE (FP) PO SCH ×2 (15:17→21:25)
[2017-04-30] MEDS ORDERED: glipiZIDE 10 MG TABLET (FP) PO SCH (16:30)
[2017-04-30] MEDS ORDERED: INSULIN SLIDING SCALE (NOVOLOG) 1 VIAL SQ SCH (16:30)
[2017-04-30 17:27] VITALS: BMI 28.3
--- NOTE | 2017-04-30 19:02 | CON.GI ---
Consult Consult Specialty:: GI Referred by:: Orquideaitslist Reason for Consultation:: Elevated Lipase - History of Present Illness Chief Complaint: My foot hurts and my sugar was high History of Present Illness: 46F admitted to [facility] from rehab for evaluation of elevated blood glucose and she describes pain in her right foot. She was recenly admitted to [facility] and treated for a right foot cellulitis. she says that she still has "a boil on her foot" that leaves a yellow discharge on the floor when she walks. She denies abdominal pain. She has a history of alcoholic liver cirrhosis and underwent TIPS in [place] in 2009 for intractable ascites. She denies stable medical caqre and lives in [place]. She is here in [place] only for rehab. her lipase was elevated (unclear why this was drawn given lack of abdominal pain) and I was called for further evaluation. She was evaluated by Dr. Lee last admission. Abdominal US performed 04/18 revealed hepatomegaly with coarse echotexture c/w fatty infiltration vs. hepatocellular disease. the biliary tract appeared normal as did visualized portions of the pancreas. It also revealed TIPS. - History Source History Provided By: Patient Limitations to Obtaining History: No Limitations - Past Medical History Cardio/Vascular: Yes: HTN, Other (DM ) Gastrointestinal: Yes: GERD Hepatobiliary: Yes: Cirrhosis, Other (REFRACTORY ASCITES AND CIRRHOSIS, HEP B/ C NEG PER PATIENT) ...LMP: 03/31/17 Psych: Yes: Addictions (alcohol abuse), Other (Substance abuse) Endocrine: Yes: Diabetes Mellitus Additional Medical History: peripheral neuropathy - Past Surgical History Past Surgical History: Yes: Cholecystectomy, Tubal Ligation Additional Surgical History: Umbilical hernia repair - Alcohol/Substance Use Hx Alcohol Use: Yes - Smoking History Smoking history: Never smoked Have you smoked in the past 12 months: No Aproximately how many cigarettes per day: 0 - Social History Usual Living Arrangement: Alone ADL: Independent Occupation: disabled Place of : [facility] History of Recent Travel: No Home Medications - Allergies Allergies/Adverse Reactions: Allergies Allergy/AdvReac Type Severity Reaction Status Date / Time shellfish derived Allergy Severe Hives Verified 04/25/17 11:03 strawberry Allergy Severe Hives Verified 04/25/17 11:03 No Known Drug Allergies Allergy Verified 04/25/17 11:03 metformin AdvReac Verified 04/29/17 08:00 metformin AdvReac Uncoded 04/28/17 23:19 - Home Medications Home Medications: Ambulatory Orders Insulin Sliding Scale [Novolog Vial Sliding Scale -] 0 units SQ TIDAC 05/30/16 Ibuprofen [Motrin -] 800 mg PO Q8H PRN #60 tablet 11/27/16 Lisinopril [Prinivil] 20 mg PO DAILY #30 tablet 11/27/16 Ranitidine [Zantac -] 150 mg PO BID #60 tablet 11/27/16 Gabapentin [Neurontin -] 400 mg PO TID #90 cap 04/09/17 Trazodone HCl [Desyrel -] 200 mg PO HS #30 tablet 04/09/17 Glipizide 10 mg PO BID 04/30/17 Hydroxyzine HCl [Atarax -] 25 mg PO QID PRN 04/30/17 Insulin (Levemir) [Levemir Flexpen -] 50 units SQ BID 04/30/17 Pregabalin [Lyrica] 75 mg PO HS 04/30/17 Thiamine HCl [B-1] 100 mg PO HS 04/30/17 Family Disease History - Family Disease History Family Disease History: Diabetes: Grandparent (alcohol), Father (alive: 68: HTN) , Mother (alive: 67), Other: Grandparent, Father, Mother Other Family History: 6 healthy children, no family history of colorectal cancer Review of Systems - Review of Systems Constitutional: denies: Chills, Fever Cardiovascular: denies: Chest Pain Respiratory: denies: SOB Gastrointestinal: denies: Abdominal Pain Integumentary: reports: Wound (right sole of foot with pain) Physical Exam-GI Vital Signs: Vital Signs Temperature 98.9 F 04/30/17 17:23 Pulse Rate 88 04/30/17 17:23 Respiratory Rate 18 04/30/17 17:29 Blood Pressure 126/77 04/30/17 17:23 O2 Sat by Pulse Oximetry (%) 99 04/30/17 17:29 Constitutional: Yes: Calm Eyes: No: Sclera Icterus Cardiovascular: Yes: Regular Rate and Rhythm, Murmur Respiratory: Yes: CTA Bilaterally Gastrointestinal Inspection: Yes: Scars ...Auscultate: Yes: Normoactive Bowel Sounds ...Palpate: Yes: Hepatomegaly (indurated liver). No: Splenomegaly, Tenderness ...Percussion: No: Tympanitic Edema: No 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: Yes: Alert, Oriented. No: [facility] Labs: INR, PTT INR 1.08 (0.82-1.09) 04/30/17 09:21 CBC, BMP 04/30/17 09:21 04/30/17 09:21 Hepatic Panel Total Bilirubin 0.3 mg/dL (0.2-1.0) D 04/30/17 09:21 AST 41 U/L (15-37) H 04/30/17 09:21 ALT 47 U/L (12-78) 04/30/17 09:21 Alkaline Phosphatase 322 U/L (45-117) H D 04/30/17 09:21 Albumin 2.6 g/dl (3.4-5.0) L 04/30/17 09:21 Imaging - Results Ultrasound: Report Reviewed Problem List - Problems (1) Elevated lipase Assessment/Plan: Clinically does not appear to have pancreatitis: Stop the glipizide, adjust other medications that can elevate lipase as feasible When renal function permits, triple phase MRI of the abdomen with and without contrast can be performed at evaluate both the liver and pancreas Needs Q6 month AFP tumor marker and Hepaic US given history of chronic liver disease Urged the need for her to continue alcohol abstinence Evaluation of heart murmur, foot wound and glycemic control per primary team Code(s): R74.8 - ABNORMAL LEVELS OF OTHER SERUM ENZYMES
[2017-04-30 20:00] LABS: BASOPHIL 0.1 % (0-2.0); MCH 30.1 pg (25.7-33.7); MCHC 33.8 g/dl (32.0-36.0); MEAN CELL VOLUME 89.1 fl (80-96); MEAN PLT VOLUME 7.7 fl (7.5-11.1); NEUTROPHILS 55.6 % (42.8-82.8); PLATELET COUNT 191 K/MM3 (134-434); RDW 15.8 % (11.6-15.6); WHITE BLOOD COUNT 5.4 K/mm3 (4.0-10.0)
[2017-04-30 20:25] LABS: ALBUMIN 2.4 g/dl (3.4-5.0); ANION GAP 9 (8-16); CALCIUM 8.7 mg/dL (8.5-10.1); CO2 25 mmol/L (21-32); COCKROFT - GAULT 124.8395; CREATININE 0.7 mg/dL (0.55-1.02); SGOT/AST 38 U/L (15-37); SGPT/ALT 46 U/L (12-78)
[2017-04-30 20:27] LABS: ALK PHOS 246 U/L (45-117); BILIRUBIN,TOTAL 0.3 mg/dL (0.2-1.0); TOT PROT 7.3 g/dl (6.4-8.2)
[2017-04-30 20:34] LABS: GLUCOSE,RANDOM 356 mg/dL (74-106)
[2017-04-30] MEDS ORDERED: traZODone HCL 50 MG TABLET (FP) ONE (20:56)
[2017-04-30] MEDS ORDERED: AZITHROMYCIN IVPB 250 ML IVPB ONE (21:09)
[2017-04-30] MEDS ORDERED: CEFTRIAXONE 50 ML IVPB ONE (21:11)
[2017-04-30] MEDS ORDERED: ALBUTEROL SO4 0.083% IH SOL 2.5 MG/3 ML VIAL.NEB. NEB PRN (21:12)
[2017-04-30] MEDS ORDERED: INSULIN (NOVOLOG) ASPART 100 UNITS/ML 10ML VIAL ONE (21:12)
[2017-04-30] MEDS ORDERED: INSULIN (NOVOLOG) ASPART 100 UNITS/ML 10ML VIAL SQ ONE (21:18)
[2017-04-30] MEDS: PREGABALIN 25 MG CAPSULE PO SCH (21:25)
[2017-04-30] MEDS: THIAMINE HCL 100 MG TABLET (FP) PO SCH (21:25)
[2017-04-30] MEDS: RANITIDINE HCL 150 MG TABLET (FP) PO SCH (21:25)
[2017-04-30] MEDS: traZODone HCL 100 MG TABLET (FP) PO SCH (21:26)
[2017-04-30] MEDS: morphine CARPU-JECT 2 MG/1 ML DISP.SYRIN IVPUSH PRN (21:30)
[2017-04-30] MEDS ORDERED: morphine CARPU-JECT 2 MG/1 ML DISP.SYRIN IVPUSH ONE (22:54)
[2017-04-30] MEDS: INSULIN DETEMIR 100 UNITS/ML MDV SQ SCH (23:05)
[2017-05-01] MEDS: SODIUM CHLORIDE 1,000 ML IV SCH ×4 (01:30→19:33)
--- NOTE | 2017-05-01 01:32 | CONSULT ---
Consult Consult Specialty:: endocrine Referred by:: Ashia covarrubias Reason for Consultation:: iddm uncontrolled - History of Present Illness Chief Complaint: high blood sugars History of Present Illness: 46 y female pmh iddm type 1 history of pancreatitis,diabetic rt foot ulcer, admitted with elevated blood sugar not having been on insulin recently placed on oral agents,found to have bs over 500mg/dl,admitted for hydration and possible dka,she has history of etoh and substance abuse,which she has been treated at [facility]. - History Source History Provided By: Patient - Past Medical History Cardio/Vascular: Yes: HTN, Other (DM ) Gastrointestinal: Yes: GERD Hepatobiliary: Yes: Cirrhosis, Other (REFRACTORY ASCITES AND CIRRHOSIS, HEP B/ C NEG PER PATIENT) ...LMP: 03/31/17 Psych: Yes: Addictions (alcohol abuse), Other (Substance abuse) Endocrine: Yes: Diabetes Mellitus Additional Medical History: peripheral neuropathy - Past Surgical History Past Surgical History: Yes: Cholecystectomy, Tubal Ligation Additional Surgical History: Umbilical hernia repair - Alcohol/Substance Use Hx Alcohol Use: Yes - Smoking History Smoking history: Never smoked Have you smoked in the past 12 months: No Aproximately how many cigarettes per day: 0 - Social History Usual Living Arrangement: Alone ADL: Independent Occupation: disabled History of Recent Travel: No Home Medications - Allergies Allergies/Adverse Reactions: Allergies Allergy/AdvReac Type Severity Reaction Status Date / Time shellfish derived Allergy Severe Hives Verified 04/25/17 11:03 strawberry Allergy Severe Hives Verified 04/25/17 11:03 No Known Drug Allergies Allergy Verified 04/25/17 11:03 metformin AdvReac Verified 04/29/17 08:00 metformin AdvReac Uncoded 04/28/17 23:19 - Home Medications Home Medications: Ambulatory Orders Insulin Sliding Scale [Novolog Vial Sliding Scale -] 0 units SQ TIDAC 05/30/16 Ibuprofen [Motrin -] 800 mg PO Q8H PRN #60 tablet 11/27/16 Lisinopril [Prinivil] 20 mg PO DAILY #30 tablet 11/27/16 Ranitidine [Zantac -] 150 mg PO BID #60 tablet 11/27/16 Gabapentin [Neurontin -] 400 mg PO TID #90 cap 04/09/17 Trazodone HCl [Desyrel -] 200 mg PO HS #30 tablet 04/09/17 Glipizide 10 mg PO BID 04/30/17 Hydroxyzine HCl [Atarax -] 25 mg PO QID PRN 04/30/17 Insulin (Levemir) [Levemir Flexpen -] 50 units SQ BID 04/30/17 Pregabalin [Lyrica] 75 mg PO HS 04/30/17 Thiamine HCl [B-1] 100 mg PO HS 04/30/17 Family Disease History - Family Disease History Family Disease History: Diabetes: Grandparent (alcohol), Father (alive: 68: HTN) , Mother (alive: 67), Other: Grandparent, Father, Mother Other Family History: 6 healthy children, no family history of colorectal cancer Review of Systems - Review of Systems Constitutional: reports: Lethargy, Unintentional Wgt. Loss, Weakness Eyes: reports: Blurred Vision HENT: reports: No Symptoms Neck: reports: No Symptoms Cardiovascular: reports: No Symptoms Respiratory: reports: Exercise Intolerance, SOB on Exertion Gastrointestinal: reports: Abdominal Pain, Nausea Genitourinary: reports: No Symptoms Breasts: reports: No Symptoms Reported Musculoskeletal: reports: Joint Swelling Integumentary: reports: Erythema 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: reports: Weakness Endocrine: reports: No Symptoms Hematology/Lymphatic: reports: No Symptoms Physical Exam Vital Signs: Vital Signs Temperature 98.9 F 04/30/17 22:00 Pulse Rate 91 H 04/30/17 22:00 Respiratory Rate 20 04/30/17 22:00 Blood Pressure 164/82 04/30/17 22:00 O2 Sat by Pulse Oximetry (%) 99 04/30/17 17:29 Constitutional: Yes: Anxious Eyes: Yes: EOM Intact HENT: Yes: Normocephalic Neck: Yes: Trachea Midline Cardiovascular: Yes: Regular Rate and Rhythm Respiratory: Yes: CTA Bilaterally Gastrointestinal: Yes: Normal Bowel Sounds ...Rectal Exam: Yes: Deferred Renal/: Yes: WNL Musculoskeletal: Yes: WNL Extremities: Yes: Erythema Edema: No Peripheral Pulses WNL: Yes Wound/Incision: Yes: Dressing Dry and Intact 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: Yes: Alert, Oriented, Numbness Labs: CBC, BMP 04/30/17 19:10 04/30/17 19:10 Problem List - Problems (1) Elevated lipase Code(s): R74.8 - ABNORMAL LEVELS OF OTHER SERUM ENZYMES (2) Insulin dependent diabetes mellitus Code(s): E11.9 - TYPE 2 DIABETES MELLITUS WITHOUT COMPLICATIONS Z79.4 - DEVELOPMENT ENG (CURRENT) USE OF INSULIN (3) Elevated liver enzymes Code(s): R74.8 - ABNORMAL LEVELS OF OTHER SERUM ENZYMES Assessment/Plan Current Active Problems Elevated lipase (Acute) Substance abuse (Acute) Insulin dependent diabetes mellitus (Chronic) Abnormal Lab Results 04/30/17 04/30/17 04/30/17 09:21 09:21 09:21 RBC Hct RDW Monocytes % 12.2 H Sodium 126 L Potassium 5.8 H Chloride 92 L BUN 28 H Creatinine 1.1 H D Random Glucose 737 H* Lactic Acid AST 41 H Alkaline Phosphatase 322 H D Albumin 2.6 L Lipase Urine Glucose (UA) 3+ H Urine Blood 1+ H Acetone, Qual 04/30/17 04/30/17 04/30/17 09:21 09:21 19:10 RBC Hct RDW Monocytes % Sodium 133 L Potassium Chloride BUN 25 H Creatinine Random Glucose 356 H* D Lactic Acid 2.1 H* AST 38 H Alkaline Phosphatase 246 H D Albumin 2.4 L Lipase 1442 H Urine Glucose (UA) Urine Blood Acetone, Qual Negative L 04/30/17 04/30/17 19:10 19:10 RBC 3.55 L Hct 31.7 L RDW 15.8 H Monocytes % 12.1 H Sodium Potassium Chloride BUN Creatinine Random Glucose Lactic Acid AST Alkaline Phosphatase Albumin Lipase Urine Glucose (UA) Urine Blood Acetone, Qual Negative L Laboratory Tests 04/30/17 04/30/17 04/30/17 09:21 09:21 19:10 POC Glucometer Random Glucose 737 H* 356 H* D Urine Glucose (UA) 3+ H Urine Blood 1+ H 04/30/17 21:14 POC Glucometer 335 Random Glucose Urine Glucose (UA) Urine Blood plan: dc metformin an glipizide given history or cirhosis and pancreatitis use insulin type 1 regimen levemir 35 am levemir 25 hs bgm qid novolog sliding scale
[2017-05-01] MEDS: morphine CARPU-JECT 2 MG/1 ML DISP.SYRIN IVPUSH PRN ×5 (01:39→23:07)
[2017-05-01] MEDS: GABAPENTIN 400 MG CAPSULE (FP) PO SCH ×3 (06:29→21:22)
[2017-05-01] MEDS: INSULIN DETEMIR 100 UNITS/ML MDV SQ SCH ×2 (06:29→21:24)
[2017-05-01] MEDS: INSULIN SLIDING SCALE (NOVOLOG) 1 VIAL SQ SCH ×4 (06:30→21:29)
[2017-05-01 07:34] LABS: MCHC 34.4 g/dl (32.0-36.0); MEAN CELL VOLUME 90.1 fl (80-96); MEAN PLT VOLUME 7.6 fl (7.5-11.1); PLATELET COUNT 174 K/MM3 (134-434); RDW 15.7 % (11.6-15.6); WHITE BLOOD COUNT 4.6 K/mm3 (4.0-10.0)
[2017-05-01 07:50] LABS: INR 1.16 (0.82-1.09); PROTHROMBIN TIME (PATIENT) 12.8 SEC (9.98-11.88)
[2017-05-01 07:59] LABS: ALBUMIN 2.3 g/dl (3.4-5.0); ALK PHOS 163 U/L (45-117); AMYLASE 104 U/L (25-115); ANION GAP 9 (8-16); BILIRUBIN,TOTAL 0.3 mg/dL (0.2-1.0); CALCIUM 8.1 mg/dL (8.5-10.1); CO2 24 mmol/L (21-32); COCKROFT - GAULT 109.2335; CREATININE 0.8 mg/dL (0.55-1.02); GLUCOSE,RANDOM 231 mg/dL (74-106); MAGNESIUM 1.7 mg/dL (1.8-2.4); PHOSPHOROUS 4.5 mg/dL (2.5-4.9); SGOT/AST 65 U/L (15-37); SGPT/ALT 53 U/L (12-78); TOT PROT 6.6 g/dl (6.4-8.2)
[2017-05-01] MEDS ORDERED: INSULIN (NOVOLOG) ASPART 100 UNITS/ML 10ML VIAL ONE (09:46)
[2017-05-01] MEDS ORDERED: PT OWN MED DRAWER 7, Y5N ONE (09:46)
[2017-05-01] MEDS: RANITIDINE HCL 150 MG TABLET (FP) PO SCH ×2 (09:59→21:22)
[2017-05-01] MEDS: LISINOPRIL 20 MG TABLET (FP) PO SCH (09:59)
--- NOTE | 2017-05-01 11:58 | PN ---
GI Progress Note Subjective: No acute events Multiple pain complaints today including right knee, right foot, abdomen - Objective Vital Signs: Vital Signs Temperature 98.8 F 05/01/17 09:51 Pulse Rate 96 H 05/01/17 09:51 Respiratory Rate 18 05/01/17 09:51 Blood Pressure 118/72 05/01/17 09:51 O2 Sat by Pulse Oximetry (%) 99 04/30/17 17:29 Constitutional: Calm Eyes: No: Sclera Icterus Cardiovascular: Yes: Regular Rate and Rhythm Respiratory: Yes: CTA Bilaterally Gastrointestinal Inspection: No: Distention ...Auscultate: Yes: Normoactive Bowel Sounds ...Palpate: Yes: Tenderness (RUQ) Edema: No 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: Yes: Alert, Oriented Labs: CBC, BMP 05/01/17 06:00 05/01/17 06:00 INR, PTT INR 1.16 (0.82-1.09) H 05/01/17 06:00 Hepatic Panel Total Bilirubin 0.3 mg/dL (0.2-1.0) 05/01/17 06:00 AST 65 U/L (15-37) H D 05/01/17 06:00 ALT 53 U/L (12-78) 05/01/17 06:00 Alkaline Phosphatase 163 U/L (45-117) H D 05/01/17 06:00 Albumin 2.3 g/dl (3.4-5.0) L 05/01/17 06:00 Problem List - Problems (1) Elevated lipase Assessment/Plan: Normalized Code(s): R74.8 - ABNORMAL LEVELS OF OTHER SERUM ENZYMES (2) Abdominal pain Assessment/Plan: For Triple Phase MRI of abdomen with and without contrast with MRCP If the ? coil in her neck precludes MRI, then Triple phse CT scan of the abdomen with and without IV contrast should be considered after premedication Code(s): R10.9 - UNSPECIFIED ABDOMINAL PAIN
--- NOTE | 2017-05-01 13:53 | CONSULT ---
Consult Consult Specialty:: infectious diseases Reason for Consultation:: fever - History of Present Illness Chief Complaint: fever rt knee pain History of Present Illness: patient well known to me from last admission who was admitted with ulcer on the foot with cellulitits of the knee joint and the rt leg patient was worked up in detail and was treated with iv abx and drainage. patients leg has improved completely and also her imaging studies did not show of the ulcer on the rt foot and also was evaluated by podiatry last time patient now comes back with c/o of fever with chills and profuse sweating with c /o of pain in the foot ulcer and also the rt knee joint as far as on examination i do not see any cellulitits of the leg or the knee joint but there is some drainage from the foot ulcer podiatry has been called in to evaluate the patient also it seems patients blood sugar was very high - History Source History Provided By: Patient Limitations to Obtaining History: No Limitations - Past Medical History Cardio/Vascular: Yes: HTN, Other (DM ) Gastrointestinal: Yes: GERD Hepatobiliary: Yes: Cirrhosis, Other (REFRACTORY ASCITES AND CIRRHOSIS, HEP B/ C NEG PER PATIENT) ...LMP: 03/31/17 Psych: Yes: Addictions (alcohol abuse), Other (Substance abuse) Endocrine: Yes: Diabetes Mellitus Additional Medical History: peripheral neuropathy - Past Surgical History Past Surgical History: Yes: Cholecystectomy, Tubal Ligation Additional Surgical History: Umbilical hernia repair - Alcohol/Substance Use Hx Alcohol Use: Yes - Smoking History Smoking history: Never smoked Have you smoked in the past 12 months: No Aproximately how many cigarettes per day: 0 - Social History Usual Living Arrangement: Alone ADL: Independent Occupation: disabled History of Recent Travel: No Home Medications - Allergies Allergies/Adverse Reactions: Allergies Allergy/AdvReac Type Severity Reaction Status Date / Time shellfish derived Allergy Severe Hives Verified 04/25/17 11:03 strawberry Allergy Severe Hives Verified 04/25/17 11:03 No Known Drug Allergies Allergy Verified 04/25/17 11:03 metformin AdvReac Verified 04/29/17 08:00 metformin AdvReac Uncoded 04/28/17 23:19 - Home Medications Home Medications: Ambulatory Orders Insulin Sliding Scale [Novolog Vial Sliding Scale -] 0 units SQ TIDAC 05/30/16 Ibuprofen [Motrin -] 800 mg PO Q8H PRN #60 tablet 11/27/16 Lisinopril [Prinivil] 20 mg PO DAILY #30 tablet 11/27/16 Ranitidine [Zantac -] 150 mg PO BID #60 tablet 11/27/16 Gabapentin [Neurontin -] 400 mg PO TID #90 cap 04/09/17 Trazodone HCl [Desyrel -] 200 mg PO HS #30 tablet 04/09/17 Glipizide 10 mg PO BID 04/30/17 Hydroxyzine HCl [Atarax -] 25 mg PO QID PRN 04/30/17 Insulin (Levemir) [Levemir Flexpen -] 50 units SQ BID 04/30/17 Pregabalin [Lyrica] 75 mg PO HS 04/30/17 Thiamine HCl [B-1] 100 mg PO HS 04/30/17 Family Disease History - Family Disease History Family Disease History: Diabetes: Grandparent (alcohol), Father (alive: 68: HTN) , Mother (alive: 67), Other: Grandparent, Father, Mother Other Family History: 6 healthy children, no family history of colorectal cancer Review of Systems - Review of Systems Constitutional: reports: Chills, Fever, Other (sweating) Eyes: reports: No Symptoms HENT: reports: No Symptoms Neck: reports: No Symptoms Cardiovascular: reports: No Symptoms Gastrointestinal: reports: No Symptoms Genitourinary: reports: No Symptoms Musculoskeletal: reports: Joint Pain Integumentary: reports: No Symptoms 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: reports: No Symptoms Endocrine: reports: No Symptoms Hematology/Lymphatic: reports: No Symptoms Psychiatric: reports: No Symptoms Physical Exam Vital Signs: Vital Signs Temperature 98.8 F 05/01/17 09:51 Pulse Rate 96 H 05/01/17 09:51 Respiratory Rate 18 05/01/17 09:51 Blood Pressure 118/72 05/01/17 09:51 O2 Sat by Pulse Oximetry (%) 99 04/30/17 17:29 Constitutional: Yes: Well Nourished, No Distress, Calm Eyes: Yes: Conjunctiva Clear HENT: Yes: Atraumatic, Normocephalic Neck: Yes: Supple Cardiovascular: Yes: Regular Rate and Rhythm Respiratory: Yes: Regular, CTA Bilaterally Gastrointestinal: Yes: Normal Bowel Sounds, Soft Musculoskeletal: Yes: Other Extremities: Yes: Other (ulcer on the rt dorsum of the foot) 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: Yes: Alert, Oriented Psychiatric: Yes: Alert, Oriented Labs: CBC, BMP 05/01/17 06:00 05/01/17 06:00 Imaging - Results Chest X-ray: Report Reviewed, Image Reviewed Assessment/Plan Problems (1) Elevated lipase Code(s): R74.8 - ABNORMAL LEVELS OF OTHER SERUM ENZYMES (2) Insulin dependent diabetes mellitus Code(s): E11.9 - TYPE 2 DIABETES MELLITUS WITHOUT COMPLICATIONS 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
[2017-05-01] MEDS: CYCLOBENZAPRINE HCL 10 MG TABLET (FP) PO SCH ×2 (14:06→21:22)
--- NOTE | 2017-05-01 14:10 | PN ---
Physical Exam: SUBJECTIVE: Patient seen and examined. She denies any chest pain or shortness of breath. She complains of right foot discomfort secondary to diabetic ulceration. OBJECTIVE: Patient states she is non compliant with her home meds because she is homeless and unable to care for herself. Vital Signs Period Temp Pulse Resp BP Sys/Resendez Pulse Ox Last 24 Hr 98.4 F-98.9 F 82-96 18-20 97-164/56-82 99-99 GENERAL: The patient is awake, alert, and fully oriented, in no acute distress. HEAD: Normal with no signs of trauma. EYES: PERRL, extraocular movements intact, sclera anicteric, conjunctiva clear. No ptosis. ENT: Ears normal, nares patent, oropharynx clear without exudates, moist mucous membranes. NECK: Trachea midline, full range of motion, supple. LUNGS: Breath sounds equal, clear to auscultation bilaterally, no wheezes, no crackles, no accessory muscle use. HEART: Regular rate and rhythm ABDOMEN: Soft, nontender, nondistended, normoactive bowel sounds, no guarding, no rebound, no hepatosplenomegaly, no masses. EXTREMITIES: 2+ pulses, warm, well-perfused, no edema. NEUROLOGICAL: Normal speech, gait not observed. PSYCH: Normal mood, normal affect. SKIN: diabetic ulceration 1cm x 1 cm of foot Laboratory Results - last 24 hr 04/30/17 04/30/17 04/30/17 16:16 17:34 19:10 WBC RBC Hgb Hct MCV MCHC RDW Plt Count MPV Neutrophils % Lymphocytes % Monocytes % Eosinophils % Basophils % INR Sodium 133 L Potassium 4.5 D Chloride 99 Carbon Dioxide 25 Anion Gap 9 BUN 25 H Creatinine 0.7 D Creat Clearance w eGFR > 60 POC Glucometer [phone] Random Glucose 356 H* D Hemoglobin A1c % Calcium 8.7 Phosphorus Magnesium Total Bilirubin 0.3 AST 38 H ALT 46 Alkaline Phosphatase 246 H D Total Protein 7.3 Albumin 2.4 L Total Amylase Lipase Acetone, Qual 04/30/17 04/30/17 04/30/17 19:10 19:10 21:14 WBC 5.4 RBC 3.55 L Hgb 10.7 Hct 31.7 L MCV 89.1 MCHC 33.8 RDW 15.8 H Plt Count 191 MPV 7.7 Neutrophils % 55.6 Lymphocytes % 32.2 D Monocytes % 12.1 H Eosinophils % 0.0 Basophils % 0.1 INR Sodium Potassium Chloride Carbon Dioxide Anion Gap BUN Creatinine Creat Clearance w eGFR POC Glucometer 335 Random Glucose Hemoglobin A1c % Calcium Phosphorus Magnesium Total Bilirubin AST ALT Alkaline Phosphatase Total Protein Albumin Total Amylase Lipase Acetone, Qual Negative L 05/01/17 05/01/17 05/01/17 06:00 06:00 06:00 WBC 4.6 RBC 3.46 L Hgb 10.7 Hct 31.1 L MCV 90.1 MCHC 34.4 RDW 15.7 H Plt Count 174 MPV 7.6 Neutrophils % Lymphocytes % Monocytes % Eosinophils % Basophils % INR 1.16 H Sodium 137 Potassium 4.6 Chloride 104 Carbon Dioxide 24 Anion Gap 9 BUN 27 H Creatinine 0.8 Creat Clearance w eGFR > 60 POC Glucometer Random Glucose 231 H D Hemoglobin A1c % Calcium 8.1 L Phosphorus 4.5 Magnesium 1.7 L Total Bilirubin 0.3 AST 65 H D ALT 53 Alkaline Phosphatase 163 H D Total Protein 6.6 Albumin 2.3 L Total Amylase 104 Lipase 179 Acetone, Qual 05/01/17 05/01/17 05/01/17 06:00 06:06 11:19 WBC RBC Hgb Hct MCV MCHC RDW Plt Count MPV Neutrophils % Lymphocytes % Monocytes % Eosinophils % Basophils % INR Sodium Potassium Chloride Carbon Dioxide Anion Gap BUN Creatinine Creat Clearance w eGFR POC Glucometer 222 275 Random Glucose Hemoglobin A1c % 10.6 H D Calcium Phosphorus Magnesium Total Bilirubin AST ALT Alkaline Phosphatase Total Protein Albumin Total Amylase Lipase Acetone, Qual Active Medications Generic Name Dose Route Start Last Admin Trade Name Freq PRN Reason Stop Dose Admin Cyclobenzaprine HCl 5 mg 05/01/17 11:30 05/01/17 14:06 Flexeril - PO 5 mg BID SIRIA Administration Gabapentin 400 mg 04/30/17 14:00 05/01/17 14:06 Neurontin - PO 400 mg TID SIRIA Administration Sodium Chloride 1,000 mls @ 125 mls/hr 04/30/17 12:45 05/01/17 09:59 Normal Saline - IV 125 mls/hr ASDIR SIRIA Administration Ceftriaxone Sodium 50 mls @ 100 mls/hr 05/01/17 14:00 Rocephin 1gm Ivpb (Pre-Docked) IVPB DAILY SIRIA Insulin Aspart 1 vial 05/01/17 07:00 05/01/17 11:23 Novolog Vial Sliding Scale - SQ 8 unit ACHS SIRIA Administration Protocol Insulin Detemir 25 units 04/30/17 23:00 04/30/17 23:05 Levemir Vial SQ 25 units HS SIRIA Administration Insulin Detemir 35 units 05/01/17 07:00 05/01/17 06:29 Levemir Vial SQ 35 unit AM SIRIA Administration Lisinopril 20 mg 05/01/17 10:00 05/01/17 09:59 Prinivil PO 20 mg DAILY SIRIA Administration Morphine Sulfate 2 mg 04/30/17 12:45 05/01/17 11:24 Morphine Injection - IVPUSH 2 mg Q4H PRN Administration PAIN LEVEL 1-5 Pregabalin 75 mg 04/30/17 22:00 04/30/17 21:25 Lyrica - PO 75 mg HS SIRIA Administration Ranitidine HCl 150 mg 04/30/17 22:00 05/01/17 09:59 Zantac - PO 150 mg BID SIRIA Administration Thiamine HCl 100 mg 04/30/17 22:00 04/30/17 21:25 Vitamin B1 - PO 100 mg HS SIRIA Administration Trazodone HCl 200 mg 04/30/17 22:00 04/30/17 21:26 Desyrel - PO 200 mg HS SIRIA Administration ASSESSMENT/PLAN: Patient is a 46 year old female with a significant past medical history of cocaine abuse, ETOH abuse, HTN, GERD, RLE cellulitis, diabetic foot ulcer, liver cirrhosis, chronic pancreatitis, frequent DKA and Type 1 Diabetes. She presented to the ER on 04/30/2017 from [facility] with elevated blood sugar and left sided abdominal pain. Patient was admitted to [facility] over the weekend and was noted to have a glucose of 692 and was sent to the ED to rule out DKA. She describes her abdominal pain as constant and often radiating to into her back. The patient reports normally taking insulin for her DM, and has not taken her insulin treatment for about 2 days as she is homeless and unable to care for herself. She denies recent fevers, chills, headache or dizziness. She denies recent nausea, vomiting, diarrhea or constipation. She denies recent dysuria, frequency, urgency or hematuria. She denies chest pain or shortness of breath. Endocrine: Diabetes Mellitus/Hyperglycemia - improving Assessment/Plan: On Novolog ac/hs, Levemir 25 units @ hs, Levemir 35 units in a.m. Monitor BGMs Anion gap 9 HmgA1c 10.6 Has diabetic foot ulcer of right foot with drainage podiatry has been consulted to evaluate [facility] [employer] following GI: Abdominal Pain - resolving Assessment/Plan: Lipase 1442>179 Tolerating diet, no nausea, vomiting Abdomen MRI with and w/o contrast ordered GI following F.E.N. Fluids: NS 50cc/hr Electrolytes: hypomagnesium repelated Nutrition: diabetic diet Prophylaxis: GI: Zantac DVT: Heparin BID
--- NOTE | 2017-05-01 16:31 | EKG ---
Test Reason : Blood Pressure : / mmHG Vent. Rate : 090 BPM Atrial Rate : 090 BPM P-R Int : 132 ms QRS Dur : 084 ms QT Int : 372 ms P-R-T Axes : 042 009 027 degrees QTc Int : 455 ms NORMAL SINUS RHYTHM CANNOT RULE OUT ANTERIOR INFARCT , AGE UNDETERMINED ABNORMAL ECG WHEN COMPARED WITH ECG OF 26-APR-2017 06:17, NO SIGNIFICANT CHANGE WAS FOUND Confirmed by KIM BLAIR, OCTAVIO ([id number]) on 05/01/2017 4:31:44 PM Referred By: Confirmed By:OCTAVIO ALVAREZ MD
[2017-05-01] MEDS ORDERED: MAGNESIUM OXIDE 400 MG TABLET (FP) PO ONE ×2 (17:18→20:15)
--- NOTE | 2017-05-01 17:55 | PN ---
[facility] Progress Note (SOAP) Subjective: Pt. was sent to med/surg because of uncontrolled DM & abdominal pain.Pt. is now diagnosed with acute pancreatitis. Pt. has completed detox and was in rehab.Throughout her stay at [facility] ( detox & rehab), she was always on insulin,long acting & sliding scale. However pt. was unable to provide accurate information Objective: 05/01/17 17:53 Vital Signs - 8 hr 05/01/17 05/01/17 10:00 15:16 Temperature 99.0 F Pulse Rate 91 H Respiratory 18 Rate Blood Pressure 129/91 O2 Sat by Pulse 99 Oximetry (%) Laboratory Last Values WBC 4.6 K/mm3 (4.0-10.0) 05/01/17 06:00 RBC 3.46 M/mm3 (3.60-5.2) L 05/01/17 06:00 Hgb 10.7 GM/dL (10.7-15.3) 05/01/17 06:00 Hct 31.1 % (32.4-45.2) L 05/01/17 06:00 MCV 90.1 fl (80-96) 05/01/17 06:00 MCHC 34.4 g/dl (32.0-36.0) 05/01/17 06:00 RDW 15.7 % (11.6-15.6) H 05/01/17 06:00 Plt Count 174 K/MM3 (134-434) 05/01/17 06:00 MPV 7.6 fl (7.5-11.1) 05/01/17 06:00 Neutrophils % 55.6 % (42.8-82.8) 04/30/17 19:10 Lymphocytes % 32.2 % (8-40) D 04/30/17 19:10 Monocytes % 12.1 % (3.8-10.2) H 04/30/17 19:10 Eosinophils % 0.0 % (0-4.5) 04/30/17 19:10 Basophils % 0.1 % (0-2.0) 04/30/17 19:10 INR 1.16 (0.82-1.09) H 05/01/17 06:00 Puncture Site Right radial 04/30/17 11:02 ABG pH 7.41 (7.35-7.45) 04/30/17 11:02 ABG pCO2 at Pt Temp 40.0 mmHg (35-45) 04/30/17 11:02 ABG pO2 at Pt Temp 84.1 mmHg (80-100) 04/30/17 11:02 ABG HCO3 24.7 meq/L (22-26) 04/30/17 11:02 ABG O2 Sat (Measured) 96.4 % (90-98.9) 04/30/17 11:02 ABG O2 Content 15.0 % vol (15-22) 04/30/17 11:02 ABG Base Excess 0.6 meq/l (-2-2) 04/30/17 11:02 Giovanni Test Positive 04/30/17 11:02 O2 Delivery Device Room air 04/30/17 11:02 Oxygen Flow Rate 21% 04/30/17 11:02 Sodium 137 mmol/L (136-145) 05/01/17 06:00 Potassium 4.6 mmol/L (3.5-5.1) 05/01/17 06:00 Chloride 104 mmol/L (98-107) 05/01/17 06:00 Carbon Dioxide 24 mmol/L (21-32) 05/01/17 06:00 Anion Gap 9 (8-16) 05/01/17 06:00 BUN 27 mg/dL (7-18) H 05/01/17 06:00 Creatinine 0.8 mg/dL (0.55-1.02) 05/01/17 06:00 Creat Clearance w eGFR > 60 (>60) 05/01/17 06:00 POC Glucometer 210 UNITS (()) 05/01/17 16:42 Random Glucose 231 mg/dL (74-106) H D 05/01/17 06:00 Hemoglobin A1c % 10.6 % (4.8-6.0) H D 05/01/17 06:00 Lactic Acid 2.1 mmol/L (0.4-2.0) H* 04/30/17 09:21 Calcium 8.1 mg/dL (8.5-10.1) L 05/01/17 06:00 Phosphorus 4.5 mg/dL (2.5-4.9) 05/01/17 06:00 Magnesium 1.7 mg/dL (1.8-2.4) L 05/01/17 06:00 Total Bilirubin 0.3 mg/dL (0.2-1.0) 05/01/17 06:00 AST 65 U/L (15-37) H D 05/01/17 06:00 ALT 53 U/L (12-78) 05/01/17 06:00 Alkaline Phosphatase 163 U/L (45-117) H D 05/01/17 06:00 Creatine Kinase 114 IU/L (26-192) 04/30/17 09:21 Troponin I 0.03 ng/ml (0.00-0.05) 04/30/17 09:21 Total Protein 6.6 g/dl (6.4-8.2) 05/01/17 06:00 Albumin 2.3 g/dl (3.4-5.0) L 05/01/17 06:00 Total Amylase 104 U/L (25-115) 05/01/17 06:00 Lipase 179 U/L (73-393) 05/01/17 06:00 Urine Color Straw 04/30/17 09:21 Urine Appearance Clear 04/30/17 09:21 Urine pH 6.0 (5.0-8.0) 04/30/17 09:21 Ur Specific [place] <= 1.005 (1.005-1.025) 04/30/17 09:21 Urine Protein Negative (NEGATIVE) 04/30/17 09:21 Urine Glucose (UA) 3+ (NEGATIVE) H 04/30/17 09:21 Urine Ketones Negative (NEGATIVE) 04/30/17 09:21 Urine Blood 1+ (NEGATIVE) H 04/30/17 09:21 Urine Nitrite Negative (NEGATIVE) 04/30/17 09:21 Urine Bilirubin Negative (NEGATIVE) 04/30/17 09:21 Urine Urobilinogen Negative E.U./dl (0.2-1.0) 04/30/17 09:21 Ur Leukocyte Esterase Negative (NEGATIVE) 04/30/17 09:21 Urine RBC 1 /hpf (0-3) 04/30/17 09:21 Urine WBC 1 /hpf (3-5) 04/30/17 09:21 Ur Epithelial Cells Rare /hpf (FEW) 04/30/17 09:21 Acetone, Qual Negative (NEGATIVE) L 04/30/17 19:10 labs noted, lipase WNL as of today Assessment: 05/01/17 17:54 Uncontrolled type II DM Acute Pancreatitis Plan: Continue present care May return to rehab to complete program when medically stable.
[2017-05-01] MEDS: CEFTRIAXONE 50 ML IVPB SCH (19:02)
[2017-05-01] MEDS: COLLAGENASE CLOSTRIDIUM HIST. 30 GRAMS TUBE TP SCH (20:11)
[2017-05-01] MEDS ORDERED: INSULIN (NOVOLOG) ASPART 100 UNITS/ML 10ML VIAL SQ ONE (20:51)
[2017-05-01] MEDS ORDERED: traZODone HCL 50 MG TABLET (FP) ONE (21:09)
[2017-05-01] MEDS: PREGABALIN 25 MG CAPSULE PO SCH (21:20)
[2017-05-01] MEDS: traZODone HCL 100 MG TABLET (FP) PO SCH (21:21)
[2017-05-01] MEDS: THIAMINE HCL 100 MG TABLET (FP) PO SCH (21:22)
[2017-05-01] MEDS: HEPARIN NA (PORCINE) 5,000 UNITS/ML 1ML VIAL SQ SCH (21:29)
[2017-05-02] MEDS: morphine CARPU-JECT 2 MG/1 ML DISP.SYRIN IVPUSH PRN ×5 (03:28→20:53)
[2017-05-02] MEDS: GABAPENTIN 400 MG CAPSULE (FP) PO SCH ×3 (06:15→22:10)
[2017-05-02] MEDS: INSULIN DETEMIR 100 UNITS/ML MDV SQ SCH (06:16)
[2017-05-02] MEDS: INSULIN SLIDING SCALE (NOVOLOG) 1 VIAL SQ SCH ×4 (06:16→22:14)
[2017-05-02 07:44] LABS: BASOPHIL 0.5 % (0-2.0); MCH 31.1 pg (25.7-33.7); MCHC 34.3 g/dl (32.0-36.0); MEAN CELL VOLUME 90.6 fl (80-96); MEAN PLT VOLUME 8.7 fl (7.5-11.1); NEUTROPHILS 45.4 % (42.8-82.8); RDW 15.7 % (11.6-15.6); WHITE BLOOD COUNT 3.2 K/mm3 (4.0-10.0)
[2017-05-02] MEDS ORDERED: PT OWN MED DRAWER 7, Y5N ONE (07:56)
[2017-05-02 08:07] LABS: ALBUMIN 2.2 g/dl (3.4-5.0); ANION GAP 8 (8-16); BILIRUBIN,TOTAL 0.3 mg/dL (0.2-1.0); CALCIUM 7.8 mg/dL (8.5-10.1); CO2 24 mmol/L (21-32); COCKROFT - GAULT 124.8395; CREATININE 0.7 mg/dL (0.55-1.02); SGOT/AST 104 U/L (15-37); SGPT/ALT 80 U/L (12-78); TOT PROT 6.7 g/dl (6.4-8.2)
[2017-05-02 08:08] LABS: ALK PHOS 159 U/L (45-117)
[2017-05-02 09:07] LABS: GLUCOSE,RANDOM 318 mg/dL (74-106)
[2017-05-02 09:45] LABS: PLATELET COMMENT2 NO CLOTTING DETECTED; PLATELET ESTIMATE DECREASED (NORMAL)
[2017-05-02] MEDS: LISINOPRIL 20 MG TABLET (FP) PO SCH (10:00)
[2017-05-02] MEDS: CYCLOBENZAPRINE HCL 10 MG TABLET (FP) PO SCH ×2 (10:29→22:12)
[2017-05-02] MEDS: CEFTRIAXONE 50 ML IVPB SCH (10:29)
[2017-05-02] MEDS: HEPARIN NA (PORCINE) 5,000 UNITS/ML 1ML VIAL SQ SCH ×2 (10:29→22:18)
[2017-05-02] MEDS: RANITIDINE HCL 150 MG TABLET (FP) PO SCH ×2 (10:29→22:12)
[2017-05-02] MEDS ORDERED: INSULIN (NOVOLOG) ASPART 100 UNITS/ML 10ML VIAL ONE ×2 (12:22→21:06)
--- NOTE | 2017-05-02 12:43 | PN ---
Progress Note, Physician History of Present Illness: stable doing well awaiting podiatry to see the aptient gi findings noted - Current Medication List Current Medications: Active Medications Collagenase (Santyl -) 1 applic TP DAILY [facility] Last Admin: 05/01/17 20:11 Dose: 1 applic Cyclobenzaprine HCl (Flexeril -) 5 mg PO BID [facility] Last Admin: 05/02/17 10:29 Dose: 5 mg Gabapentin (Neurontin -) 400 mg PO TID [facility] Last Admin: 05/02/17 06:15 Dose: 400 mg Heparin Sodium (Porcine) (Heparin -) 5,000 unit SQ BID [facility] Last Admin: 05/02/17 10:29 Dose: Not Given Ceftriaxone Sodium (Rocephin 1gm Ivpb (Pre-Docked)) 50 mls @ 100 mls/hr IVPB DAILY [facility] Last Admin: 05/02/17 10:29 Dose: 100 mls/hr Sodium Chloride (Normal Saline -) 1,000 mls @ 50 mls/hr IV ASDIR [facility] Last Admin: 05/01/17 19:03 Dose: 50 mls/hr Insulin Aspart (Novolog Vial Sliding Scale -) 1 vial SQ ACHS [facility] PRN Reason: Protocol Last Admin: 05/02/17 12:11 Dose: 10 units Insulin Detemir (Levemir Vial) 35 units SQ AM [facility] Last Admin: 05/02/17 06:16 Dose: 35 unit Insulin Detemir (Levemir Vial) 30 units SQ HS [facility] Lisinopril (Prinivil) 20 mg PO DAILY [facility] Last Admin: 05/01/17 09:59 Dose: 20 mg Morphine Sulfate (Morphine Injection -) 2 mg IVPUSH Q4H PRN PRN Reason: PAIN LEVEL 1-5 Last Admin: 05/02/17 11:59 Dose: 2 mg Pregabalin (Lyrica -) 75 mg PO [facility] Last Admin: 05/01/17 21:20 Dose: 75 mg Ranitidine HCl (Zantac -) 150 mg PO BID [facility] Last Admin: 05/02/17 10:29 Dose: 150 mg Thiamine HCl (Vitamin B1 -) 100 mg PO [facility] Last Admin: 05/01/17 21:22 Dose: 100 mg Trazodone HCl (Desyrel -) 200 mg PO [facility] Last Admin: 05/01/17 21:21 Dose: 200 mg - Objective Vital Signs: Vital Signs Temperature 98.3 F 05/02/17 08:17 Pulse Rate 89 05/02/17 08:17 Respiratory Rate 20 05/02/17 08:17 Blood Pressure 135/87 05/02/17 08:17 O2 Sat by Pulse Oximetry (%) 98 05/01/17 21:00 Constitutional: Yes: No Distress, Calm Cardiovascular: Yes: Regular Rate and Rhythm Respiratory: Yes: Regular, CTA Bilaterally Gastrointestinal: Yes: Normal Bowel Sounds, Soft Musculoskeletal: Yes: WNL Extremities: Yes: Other Wound/Incision: Yes: Dressing Dry and Intact 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: Yes: Alert, Oriented Psychiatric: Yes: Alert, Oriented Labs: CBC, BMP 05/02/17 06:05 05/02/17 06:05 INR, PTT INR 1.16 (0.82-1.09) H 05/01/17 06:00 Assessment/Plan Problems (1) Elevated lipase Code(s): R74.8 - ABNORMAL LEVELS OF OTHER SERUM ENZYMES (2) Insulin dependent diabetes mellitus Code(s): E11.9 - TYPE 2 DIABETES MELLITUS WITHOUT COMPLICATIONS Z79.4 - 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
[2017-05-02] MEDS: SODIUM CHLORIDE 1,000 ML IV SCH ×2 (15:11→16:35)
[2017-05-02] MEDS: COLLAGENASE CLOSTRIDIUM HIST. 30 GRAMS TUBE TP SCH (15:13)
--- NOTE | 2017-05-02 15:33 | PN ---
Physical Exam: SUBJECTIVE: Patient seen and examined. She denies abdominal pain, nausea or vomiting. OBJECTIVE: States she is still having some drainage of the diabetic ulcer on her right foot Vital Signs Period Temp Pulse Resp BP Sys/Resendez Pulse Ox Last 24 Hr 97.9 F-99.0 F 80-89 18-20 108-145/70-93 98 GENERAL: The patient is awake, alert, and fully oriented, in no acute distress. HEAD: Normal with no signs of trauma. EYES: PERRL, extraocular movements intact, sclera anicteric, conjunctiva clear. No ptosis. ENT: Ears normal, nares patent, oropharynx clear without exudates, moist mucous membranes. NECK: Trachea midline, full range of motion, supple. LUNGS: Breath sounds equal, clear to auscultation bilaterally, no wheezes, no crackles, no accessory muscle use. HEART: Regular rate and rhythm ABDOMEN: Soft, nontender, nondistended, normoactive bowel sounds, no guarding, no rebound, no hepatosplenomegaly, no masses. EXTREMITIES: 2+ pulses, warm, well-perfused, no edema. NEUROLOGICAL: Normal speech, gait not observed. PSYCH: Normal mood, normal affect. SKIN: diabetic ulceration 1cm x 1 cm of foot Laboratory Results - last 24 hr 05/01/17 05/01/17 05/02/17 16:42 21:19 05:51 WBC RBC Hgb Hct MCV MCHC RDW Plt Count MPV Neutrophils % Lymphocytes % Monocytes % Eosinophils % Basophils % Platelet Estimate Platelet Comment Sodium Potassium Chloride Carbon Dioxide Anion Gap BUN Creatinine Creat Clearance w eGFR POC Glucometer 210 176 263 Random Glucose Calcium Total Bilirubin AST ALT Alkaline Phosphatase Total Protein Albumin 05/02/17 05/02/17 05/02/17 06:05 06:05 12:02 WBC 3.2 L D RBC 3.42 L Hgb 10.6 L Hct 31.0 L MCV 90.6 MCHC 34.3 RDW 15.7 H Plt Count Public Address System Mechanic MPV 8.7 D Neutrophils % 45.4 Lymphocytes % 39.5 D Monocytes % 14.6 H Eosinophils % 0.0 Basophils % 0.5 D Platelet Estimate Decreased Platelet Comment No clotting detected Sodium 138 Potassium 4.3 Chloride 106 Carbon Dioxide 24 Anion Gap 8 BUN 19 H D Creatinine 0.7 Creat Clearance w eGFR > 60 POC Glucometer 270 Random Glucose 318 H* D Calcium 7.8 L Total Bilirubin 0.3 AST 104 H D ALT 80 H D Alkaline Phosphatase 159 H Total Protein 6.7 Albumin 2.2 L Active Medications Generic Name Dose Route Start Last Admin Trade Name Alex PRN Reason Stop Dose Admin Collagenase 1 applic 05/01/17 15:45 05/02/17 15:13 Santyl - TP 1 applic DAILY [facility] Administration Cyclobenzaprine HCl 5 mg 05/01/17 11:30 05/02/17 10:29 Flexeril - PO 5 mg BID [facility] Administration Gabapentin 400 mg 04/30/17 14:00 05/02/17 15:09 Neurontin - PO 400 mg TID [facility] Administration Heparin Sodium (Porcine) 5,000 unit 05/01/17 22:00 05/02/17 10:29 Heparin - SQ Not Given BID [facility] Ceftriaxone Sodium 50 mls @ 100 mls/hr 05/01/17 14:00 05/02/17 10:29 Rocephin 1gm Ivpb (Pre-Docked) IVPB 100 mls/hr DAILY [facility] Administration Sodium Chloride 1,000 mls @ 50 mls/hr 05/01/17 17:23 05/02/17 15:11 Normal Saline - IV 50 mls/hr ASDIR [facility] Administration Insulin Aspart 1 vial 05/02/17 09:10 05/02/17 12:11 Novolog Vial Sliding Scale - SQ 10 units ACHS [facility] Administration Protocol Insulin Detemir 35 units 05/01/17 07:00 05/02/17 06:16 Levemir Vial SQ 35 unit AM [facility] Administration Insulin Detemir 30 units 05/02/17 22:00 Levemir Vial SQ HS [facility] Lisinopril 20 mg 05/01/17 10:00 05/01/17 09:59 Prinivil PO 20 mg DAILY [facility] Administration Morphine Sulfate 2 mg 04/30/17 12:45 05/02/17 11:59 Morphine Injection - IVPUSH 2 mg Q4H PRN Administration PAIN LEVEL 1-5 Pregabalin 75 mg 04/30/17 22:00 05/01/17 21:20 Lyrica - PO 75 mg HS [facility] Administration Ranitidine HCl 150 mg 04/30/17 22:00 05/02/17 10:29 Zantac - PO 150 mg BID [facility] Administration Thiamine HCl 100 mg 04/30/17 22:00 05/01/17 21:22 Vitamin B1 - PO 100 mg HS [facility] Administration Trazodone HCl 200 mg 04/30/17 22:00 05/01/17 21:21 Desyrel - PO 200 mg HS [facility] Administration ASSESSMENT/PLAN: Patient is a 46 year old female with a significant past medical history of cocaine abuse, ETOH abuse, HTN, GERD, RLE cellulitis, diabetic foot ulcer, liver cirrhosis, chronic pancreatitis, frequent DKA and Type 1 Diabetes. She presented to the ER on 04/30/2017 from [facility] with elevated blood sugar and left sided abdominal pain. Patient was admitted to [facility] over the weekend and was noted to have a glucose of 692 and was sent to the ED to rule out DKA. She describes her abdominal pain as constant and often radiating to into her back. The patient reports normally taking insulin for her DM, and has not taken her insulin treatment for about 2 days as she is homeless and unable to care for herself. She denies recent fevers, chills, headache or dizziness. She denies recent nausea, vomiting, diarrhea or constipation. She denies recent dysuria, frequency, urgency or hematuria. She denies chest pain or shortness of breath. Endocrine: Diabetes Mellitus/Hyperglycemia - BGMs elevated, adjusted Levemir Assessment/Plan: On Novolog ac/hs, Levemir 30 units @ hs, Levemir 35 units in a.m. Monitor BGMs, adjusted sliding scale for tighter control Anion gap 9 HmgA1c 10.6 Has diabetic foot ulcer of right foot with drainage podiatry has been consulted to evaluate Lockstitch Binder following GI: Abdominal Pain - resolving Assessment/Plan: Lipase [id number] Tolerating diet, no nausea, vomiting Abdomen MRI with and w/o contrast ordered GI following F.E.N. Fluids: NS 50cc/hr Electrolytes: hypomagnesium repelated Nutrition: diabetic diet Prophylaxis: GI: Zantac DVT: Heparin BID
[2017-05-02] MEDS ORDERED: LORAZEPAM CARPU-JECT 2 MG/ML DISP.SYRIN IM ONE (18:14)
[2017-05-02] MEDS ORDERED: LORazepam 2 MG/ML SDV VIAL ONE (18:26)
[2017-05-02] MEDS ORDERED: LORazepam 2 MG/ML SDV VIAL IM ONE (18:30)
[2017-05-02] MEDS ORDERED: traZODone HCL 50 MG TABLET (FP) ONE (21:07)
[2017-05-02] MEDS ORDERED: INSULIN DETEMIR 100 UNITS/ML MDV SQ SCH (22:00)
[2017-05-02] MEDS: THIAMINE HCL 100 MG TABLET (FP) PO SCH (22:10)
[2017-05-02] MEDS: PREGABALIN 25 MG CAPSULE PO SCH (22:11)
[2017-05-02] MEDS: traZODone HCL 100 MG TABLET (FP) PO SCH (22:13)
[2017-05-03] MEDS: morphine CARPU-JECT 2 MG/1 ML DISP.SYRIN IVPUSH PRN ×5 (01:38→20:57)
[2017-05-03] MEDS: GABAPENTIN 400 MG CAPSULE (FP) PO SCH ×3 (05:39→22:38)
[2017-05-03] MEDS: INSULIN DETEMIR 100 UNITS/ML MDV SQ SCH ×2 (06:18→22:39)
[2017-05-03] MEDS: INSULIN SLIDING SCALE (NOVOLOG) 1 VIAL SQ SCH ×4 (06:19→22:40)
[2017-05-03 08:04] LABS: BASOPHIL 0.1 % (0-2.0); MCH 30.7 pg (25.7-33.7); MCHC 34.5 g/dl (32.0-36.0); MEAN PLT VOLUME 8.5 fl (7.5-11.1); NEUTROPHILS 34.5 % (42.8-82.8); PLATELET COUNT 149 K/MM3 (134-434); RDW 15.1 % (11.6-15.6); WHITE BLOOD COUNT 2.8 K/mm3 (4.0-10.0)
[2017-05-03 08:51] LABS: ALBUMIN 2.3 g/dl (3.4-5.0); ALK PHOS 176 U/L (45-117); ANION GAP 8 (8-16); BILIRUBIN,TOTAL 0.3 mg/dL (0.2-1.0); CO2 25 mmol/L (21-32); COCKROFT - GAULT 124.8395; CREATININE 0.7 mg/dL (0.55-1.02); GLUCOSE,RANDOM 233 mg/dL (74-106); SGOT/AST 86 U/L (15-37); SGPT/ALT 80 U/L (12-78); TOT PROT 6.9 g/dl (6.4-8.2)
--- NOTE | 2017-05-03 09:57 | PN ---
Progress Note, Physician History of Present Illness: stable doing well awaiting podiatry - Current Medication List Current Medications: Active Medications Collagenase (Santyl -) 1 applic TP DAILY [facility] Last Admin: 05/02/17 15:13 Dose: 1 applic Cyclobenzaprine HCl (Flexeril -) 5 mg PO BID [facility] Last Admin: 05/02/17 22:12 Dose: 5 mg Gabapentin (Neurontin -) 400 mg PO TID [facility] Last Admin: 05/03/17 05:39 Dose: 400 mg Heparin Sodium (Porcine) (Heparin -) 5,000 unit SQ BID [facility] Last Admin: 05/02/17 22:18 Dose: Not Given Ceftriaxone Sodium (Rocephin 1gm Ivpb (Pre-Docked)) 50 mls @ 100 mls/hr IVPB DAILY [facility] Last Admin: 05/02/17 10:29 Dose: 100 mls/hr Sodium Chloride (Normal Saline -) 1,000 mls @ 50 mls/hr IV ASDIR [facility] Last Admin: 05/02/17 16:35 Dose: 50 mls/hr Insulin Aspart (Novolog Vial Sliding Scale -) 1 vial SQ ACHS [facility] PRN Reason: Protocol Last Admin: 05/03/17 06:19 Dose: 8 units Insulin Detemir (Levemir Vial) 35 units SQ AM [facility] Last Admin: 05/03/17 06:18 Dose: 35 unit Insulin Detemir (Levemir Vial) 30 units SQ HS [facility] Last Admin: 05/02/17 22:14 Dose: 30 unit Lisinopril (Prinivil) 20 mg PO DAILY [facility] Last Admin: 05/02/17 10:00 Dose: Not Given Morphine Sulfate (Morphine Injection -) 2 mg IVPUSH Q4H PRN PRN Reason: PAIN LEVEL 1-5 Last Admin: 05/03/17 05:38 Dose: 2 mg Pregabalin (Lyrica -) 75 mg PO HS [facility] Last Admin: 05/02/17 22:11 Dose: 75 mg Ranitidine HCl (Zantac -) 150 mg PO BID [facility] Last Admin: 05/02/17 22:12 Dose: 150 mg Thiamine HCl (Vitamin B1 -) [address] [facility] Last Admin: 05/02/17 22:10 Dose: 100 mg Trazodone HCl (Desyrel -) 200 mg PO [facility] Last Admin: 05/02/17 22:13 Dose: 200 mg - Objective Vital Signs: Vital Signs Temperature 98.5 F 05/03/17 09:30 Pulse Rate 98 H 05/03/17 09:30 Respiratory Rate 20 05/03/17 09:30 Blood Pressure 156/90 05/03/17 09:30 O2 Sat by Pulse Oximetry (%) 98 05/02/17 21:00 Constitutional: Yes: No Distress, Calm Cardiovascular: Yes: Regular Rate and Rhythm Respiratory: Yes: Regular, CTA Bilaterally Gastrointestinal: Yes: Soft Musculoskeletal: Yes: Other Extremities: Yes: Other 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: Yes: Alert, Oriented Psychiatric: Yes: Alert Labs: CBC, BMP 05/03/17 06:00 05/03/17 06:00 INR, PTT INR 1.16 (0.82-1.09) H 05/01/17 06:00 Assessment/Plan Problems (1) Elevated lipase Code(s): R74.8 - ABNORMAL LEVELS OF OTHER SERUM ENZYMES (2) Insulin dependent diabetes mellitus Code(s): E11.9 - TYPE 2 DIABETES MELLITUS WITHOUT COMPLICATIONS 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
[2017-05-03] MEDS ORDERED: PT OWN MED DRAWER 7, Y5N ONE ×2 (11:18→17:24)
[2017-05-03] MEDS: CEFTRIAXONE 50 ML IVPB SCH (11:21)
[2017-05-03] MEDS: CYCLOBENZAPRINE HCL 10 MG TABLET (FP) PO SCH ×2 (11:24→22:36)
[2017-05-03] MEDS: RANITIDINE HCL 150 MG TABLET (FP) PO SCH ×2 (11:24→22:37)
[2017-05-03] MEDS: LISINOPRIL 20 MG TABLET (FP) PO SCH (11:24)
[2017-05-03] MEDS: COLLAGENASE CLOSTRIDIUM HIST. 30 GRAMS TUBE TP SCH (11:25)
[2017-05-03] MEDS: HEPARIN NA (PORCINE) 5,000 UNITS/ML 1ML VIAL SQ SCH (11:25)
[2017-05-03] MEDS ORDERED: HEPARIN NA (PORCINE) 5,000 UNITS/ML 1ML VIAL IVPUSH PRN ×2 (11:34→12:04)
--- NOTE | 2017-05-03 11:54 | PN ---
Physical Exam: SUBJECTIVE: Patient seen and examined. She denies any pain or shortness of breath. 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 Discussed findings with ID, who advised Vanco 1250mg x 1, continue Rocephin. MRI of right foot ordered to r/o osteomylitis Vital Signs Period Temp Pulse Resp BP Sys/Resendez Pulse Ox Last 24 Hr 97.9 F-98.8 F 85-98 20-20 119-156/61-93 98 GENERAL: The patient is awake, alert, and fully oriented, in no acute distress. HEAD: Normal with no signs of trauma. EYES: PERRL, extraocular movements intact, sclera anicteric, conjunctiva clear. No ptosis. ENT: Ears normal, nares patent, oropharynx clear without exudates, moist mucous membranes. NECK: Trachea midline, full range of motion, supple. LUNGS: Breath sounds equal, clear to auscultation bilaterally, no wheezes, no crackles, no accessory muscle use. HEART: Regular rate and rhythm ABDOMEN: Soft, nontender, nondistended, normoactive bowel sounds, no guarding, no rebound, no hepatosplenomegaly, no masses. EXTREMITIES: 2+ pulses, warm, well-perfused, no edema. NEUROLOGICAL: Normal speech, gait not observed. PSYCH: Normal mood, normal affect. SKIN: diabetic ulceration 1cm x 1 cm of foot + MRSA Laboratory Results - last 24 hr 05/02/17 05/02/17 05/02/17 12:02 16:42 22:08 WBC RBC Hgb Hct MCV MCHC RDW Plt Count MPV Neutrophils % Lymphocytes % Monocytes % Eosinophils % Basophils % Sodium Potassium Chloride Carbon Dioxide Anion Gap BUN Creatinine Creat Clearance w eGFR POC Glucometer 270 179 271 Random Glucose Calcium Total Bilirubin AST ALT Alkaline Phosphatase Total Protein Albumin 05/03/17 05/03/17 05/03/17 06:00 06:00 06:11 WBC 2.8 L RBC 3.55 L Hgb 10.9 Hct 31.6 L MCV 89.0 MCHC 34.5 RDW 15.1 Plt Count 149 MPV 8.5 Neutrophils % 34.5 L D Lymphocytes % 46.1 H Monocytes % 19.3 H Eosinophils % 0.0 Basophils % 0.1 Sodium 140 Potassium 4.1 Chloride 107 Carbon Dioxide 25 Anion Gap 8 BUN 18 Creatinine 0.7 Creat Clearance w eGFR > 60 POC Glucometer 224 Random Glucose 233 H D Calcium 8.0 L Total Bilirubin 0.3 AST 86 H ALT 80 H Alkaline Phosphatase 176 H Total Protein 6.9 Albumin 2.3 L Active Medications Generic Name Dose Route Start Last Admin Trade Name Freq PRN Reason Stop Dose Admin Collagenase 1 applic 05/01/17 15:45 05/03/17 11:25 Santyl - TP 1 applic DAILY [facility] Administration Cyclobenzaprine HCl 5 mg 05/01/17 11:30 05/03/17 11:24 Flexeril - PO 5 mg BID [facility] Administration Gabapentin 400 mg 04/30/17 14:00 05/03/17 05:39 Neurontin - PO 400 mg TID [facility] Administration Heparin Sodium (Porcine) 1,000 unit 05/03/17 11:34 Heparin - IVPUSH PRN PRN Heparin Heparin Sodium (Porcine) 5,000 unit 05/03/17 11:34 Heparin - IVPUSH PRN PRN Heparin Ceftriaxone Sodium 50 mls @ 100 mls/hr 05/01/17 14:00 05/03/17 11:21 Rocephin 1gm Ivpb (Pre-Docked) IVPB 100 mls/hr DAILY [facility] Administration Sodium Chloride 1,000 mls @ 50 mls/hr 05/01/17 17:23 05/02/17 16:35 Normal Saline - IV 50 mls/hr ASDIR [facility] Administration Heparin Sodium (Porcine) 25, 500 mls @ 20 mls/hr 05/03/17 11:45 000 unit/ Sodium Chloride IV TITR [facility] Protocol 1,000 UNIT/HR Insulin Aspart 1 vial 05/02/17 09:10 05/03/17 06:19 Novolog Vial Sliding Scale - SQ 8 units ACHS [facility] Administration Protocol Insulin Detemir 35 units 05/01/17 07:00 05/03/17 06:18 Levemir Vial SQ 35 unit AM [facility] Administration Insulin Detemir 30 units 05/02/17 22:00 05/02/17 22:14 Levemir Vial SQ 30 unit HS [facility] Administration Lisinopril 20 mg 05/01/17 10:00 05/03/17 11:24 Prinivil PO 20 mg DAILY [facility] Administration Morphine Sulfate 2 mg 04/30/17 12:45 05/03/17 11:23 Morphine Injection - IVPUSH 2 mg Q4H PRN Administration PAIN LEVEL 1-5 Pregabalin 75 mg 04/30/17 22:00 05/02/17 22:11 Lyrica - PO 75 mg HS [facility] Administration Ranitidine HCl 150 mg 04/30/17 22:00 05/03/17 11:24 Zantac - PO 150 mg BID [facility] Administration Thiamine HCl 100 mg 04/30/17 22:00 05/02/17 22:10 Vitamin B1 - PO 100 mg HS [facility] Administration Trazodone HCl 200 mg 04/30/17 22:00 05/02/17 22:13 Desyrel - PO 200 mg HS [facility] Administration ASSESSMENT/PLAN: Patient is a 46 year old female with a significant past medical history of cocaine abuse, ETOH abuse, HTN, GERD, RLE cellulitis, diabetic foot ulcer, ETOH liver cirrhosis, chronic pancreatitis, frequent DKA, Type 1 Diabetes, portal hypertension, TIPS procedure 2010 in [place] for intractable ascites. She presented to the ER on 04/30/2017 from [facility] with elevated blood sugar and left sided abdominal pain. Patient was admitted to Health system over the weekend and was noted to have a glucose of 692 and was sent to the ED to rule out DKA. She describes her abdominal pain as constant and often radiating to into her back. The patient reports normally taking insulin for her DM, and has not taken her insulin treatment for about 2 days as she is homeless and unable to care for herself. She denies recent fevers, chills, headache or dizziness. She denies recent nausea, vomiting, diarrhea or constipation. She denies recent dysuria, frequency, urgency or hematuria. She denies chest pain or shortness of breath. 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 Monitor BGMs, adjusted sliding scale for tighter control Anion gap 9, HmgA1c 10.6 Needs close follow up with a clinic on d/c Patient is non compliant with home meds which makes treating her DM challenging Muscular/Skeletal: Diabetic Foot Ulceration of Right Foot - chronic Assessment/Plan: Has diabetic foot ulcer of right foot with drainage Wound culture shows Klebsiella pneumonia, ESBL,Group D As per ID, given Vanco 1250mg x 1 now, continue Rocephin podiatry has been consulted to evaluate and collagenase ordered MRI of foot to rule out osteomylitis GI: Pancreatitis - chronic Abdominal Pain - improving Assessment/Plan: Lipase [id number] Tolerating diet, no nausea or vomiting MRI/Abdomen with contrast 05/03: 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 Fluids: tolerating PO Electrolytes: monitor Nutrition: diabetic diet Prophylaxis: GI: Zantac DVT: On a heparin drip Disposition: Continues to require inpatient hospitalization. Full code. Visit type - Emergency Visit Emergency Visit: Yes ED Registration Date: 04/30/17 Care time: The patient presented to the Emergency Department on the above date and was hospitalized for further evaluation of their emergent condition. - New Patient This patient is new to me today: No - Critical Care Critical Care patient: No - Discharge Referral Referred to [facility] Yes Physician Referral: Leandro Horta MD ([facility])
[2017-05-03] MEDS ORDERED: VANCOMYCIN 1,250 MG in DEXTROSE 5%-WATER - 250 ML IVPB ONE (12:45)
[2017-05-03] MEDS ORDERED: LORAZEPAM CARPU-JECT 2 MG/ML DISP.SYRIN IVPUSH ONE (15:14)
[2017-05-03] MEDS ORDERED: LORazepam 2 MG/ML SDV VIAL ONE (16:57)
[2017-05-03] MEDS: HEPARIN - 25,000 UNIT in SODIUM CHLORIDE 495 ML IV SCH (18:09)
[2017-05-03] MEDS ORDERED: traZODone HCL 50 MG TABLET (FP) ONE (22:30)
[2017-05-03] MEDS: PREGABALIN 25 MG CAPSULE PO SCH (22:36)
[2017-05-03] MEDS: THIAMINE HCL 100 MG TABLET (FP) PO SCH (22:37)
[2017-05-03] MEDS: traZODone HCL 100 MG TABLET (FP) PO SCH (22:38)
[2017-05-04] MEDS: morphine CARPU-JECT 2 MG/1 ML DISP.SYRIN IVPUSH PRN ×5 (01:32→21:33)
[2017-05-04] MEDS: GABAPENTIN 400 MG CAPSULE (FP) PO SCH ×3 (05:51→22:54)
[2017-05-04] MEDS: INSULIN SLIDING SCALE (NOVOLOG) 1 VIAL SQ SCH ×4 (06:57→22:56)
[2017-05-04] MEDS: INSULIN DETEMIR 100 UNITS/ML MDV SQ SCH ×2 (06:57→22:55)
[2017-05-04] MEDS: CYCLOBENZAPRINE HCL 10 MG TABLET (FP) PO SCH ×2 (09:12→22:54)
[2017-05-04] MEDS: CEFTRIAXONE 50 ML IVPB SCH (09:12)
[2017-05-04] MEDS: LISINOPRIL 20 MG TABLET (FP) PO SCH (09:12)
[2017-05-04] MEDS: RANITIDINE HCL 150 MG TABLET (FP) PO SCH ×2 (09:12→22:56)
[2017-05-04] MEDS: NADOLOL 20 MG TABLET (FP) PO SCH (09:13)
[2017-05-04] MEDS: COLLAGENASE CLOSTRIDIUM HIST. 30 GRAMS TUBE TP SCH (09:18)
[2017-05-04 09:43] LABS: BASOPHIL 0.2 % (0-2.0); MCHC 33.3 g/dl (32.0-36.0); MEAN CELL VOLUME 90.1 fl (80-96); MEAN PLT VOLUME 8.2 fl (7.5-11.1); NEUTROPHILS 32.6 % (42.8-82.8); PLATELET COUNT 159 K/MM3 (134-434); RDW 15.2 % (11.6-15.6); WHITE BLOOD COUNT 3.1 K/mm3 (4.0-10.0)
[2017-05-04] MEDS ORDERED: HYDROmorphone HCL CARPU-JECT 1 MG/1 ML DISP.SYRIN IVPB ONE ×2 (09:58→12:30)
--- NOTE | 2017-05-04 09:59 | PN ---
Physical Exam: SUBJECTIVE: Patient seen and examined. She denies any chest pain or shortness of breath. She is aware that she needs to follow up as an outpatient and will need a PCP. 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 HEAD: Normal with no signs of trauma. EYES: PERRL, extraocular movements intact, sclera anicteric, conjunctiva clear. No ptosis. ENT: Ears normal, nares patent, oropharynx clear without exudates, moist mucous membranes. NECK: Trachea midline, full range of motion, supple. LUNGS: Breath sounds equal, clear to auscultation bilaterally, no wheezes, no crackles, no accessory muscle use. HEART: Regular rate and rhythm ABDOMEN: Soft, nontender, nondistended, normoactive bowel sounds, no guarding, no rebound, no hepatosplenomegaly, no masses. EXTREMITIES: 2+ pulses, warm, well-perfused, no edema. NEUROLOGICAL: Normal speech, gait not observed. PSYCH: Normal mood, normal affect. SKIN: diabetic ulceration 1cm x 1 cm of foot + MRSA Laboratory Results - last 24 hr 05/03/17 05/03/17 05/03/17 12:02 17:07 21:22 WBC RBC Hgb Hct MCV MCHC RDW Plt Count MPV Neutrophils % Lymphocytes % Monocytes % Eosinophils % Basophils % PTT (Actin FS) POC Glucometer 213 274 383 05/04/17 05/04/17 05/04/17 00:15 05:06 08:35 WBC RBC Hgb Hct MCV MCHC RDW Plt Count MPV Neutrophils % Lymphocytes % Monocytes % Eosinophils % Basophils % PTT (Actin FS) 44.2 H 64.2 H D POC Glucometer 218 05/04/17 08:35 WBC 3.1 L RBC 3.82 Hgb 11.5 Hct 34.4 MCV 90.1 MCHC 33.3 RDW 15.2 Plt Count 159 MPV 8.2 Neutrophils % 32.6 L Lymphocytes % 52.1 H Monocytes % 15.1 H Eosinophils % 0.0 Basophils % 0.2 PTT (Actin FS) POC Glucometer Active Medications Generic Name Dose Route Start Last Admin Trade Name Freq PRN Reason Stop Dose Admin Collagenase 1 applic 05/01/17 15:45 05/04/17 09:18 Santyl - TP 1 applic DAILY SIRIA Administration Cyclobenzaprine HCl 5 mg 05/01/17 11:30 05/04/17 09:12 Flexeril - PO 5 mg BID SIRIA Administration Gabapentin 400 mg 04/30/17 14:00 05/04/17 05:51 Neurontin - PO 400 mg TID SIRIA Administration Heparin Sodium (Porcine) 1,000 unit 05/03/17 12:04 05/04/17 01:32 Heparin - IVPUSH 1,000 unit PRN PRN Administration Heparin Heparin Sodium (Porcine) 5,000 unit 05/03/17 11:34 Heparin - IVPUSH PRN PRN Heparin Ceftriaxone Sodium 50 mls @ 100 mls/hr 05/01/17 14:00 05/04/17 09:12 Rocephin 1gm Ivpb (Pre-Docked) IVPB 100 mls/hr DAILY SIRIA Administration Heparin Sodium (Porcine) 25, 500 mls @ 20 mls/hr 05/03/17 12:15 05/04/17 01:33 000 unit/ Sodium Chloride IV 1,100 unit/hr TITR [facility] Titration Protocol 1,000 UNIT/HR Insulin Aspart 1 vial 05/02/17 09:10 05/04/17 06:57 Novolog Vial Sliding Scale - SQ 8 units ACHS SIRIA Administration Protocol Insulin Detemir 35 units 05/01/17 07:00 05/04/17 06:57 Levemir Vial SQ 35 unit AM SIRIA Administration Insulin Detemir 35 units 05/03/17 15:02 05/03/17 22:39 Levemir Vial SQ 35 units HS SIRIA Administration Lisinopril 20 mg 05/01/17 10:00 05/04/17 09:12 Prinivil PO 20 mg DAILY SIRIA Administration Morphine Sulfate 2 mg 05/03/17 15:13 05/04/17 05:50 Morphine Injection - IVPUSH 2 mg Q4H PRN Administration PAIN Nadolol 20 mg 05/04/17 10:00 05/04/17 09:13 Corgard - PO 20 mg DAILY SIRIA Administration Pregabalin 75 mg 04/30/17 22:00 05/03/17 22:36 Lyrica - PO 75 mg HS SIRIA Administration Ranitidine HCl 150 mg 04/30/17 22:00 05/04/17 09:12 Zantac - PO 150 mg BID SIRIA Administration Thiamine HCl 100 mg 04/30/17 22:00 05/03/17 22:37 Vitamin B1 - PO 100 mg HS SIRIA Administration Trazodone HCl 200 mg 04/30/17 22:00 05/03/17 22:38 Desyrel - PO 200 mg HS SIRIA Administration ASSESSMENT/PLAN: Patient is a 46 year old female with a significant past medical history of cocaine abuse, ETOH abuse, HTN, GERD, RLE cellulitis, diabetic foot ulcer, ETOH liver cirrhosis, chronic pancreatitis, frequent DKA, Type 1 Diabetes, portal hypertension, TIPS procedure 2010 in [place] for intractable ascites. She presented to the ER on 04/30/2017 from [facility] with elevated blood sugar and left sided abdominal pain. Patient was admitted to [facility] over the weekend and was noted to have a glucose of 692 and was sent to the ED to rule out DKA. She describes her abdominal pain as constant and often radiating to into her back. The patient reports normally taking insulin for her DM, and has not taken her insulin treatment for about 2 days as she is homeless and unable to care for herself. She denies recent fevers, chills, headache or dizziness. She denies recent nausea, vomiting, diarrhea or constipation. She denies recent dysuria, frequency, urgency or hematuria. She denies chest pain or shortness of breath. Imaging: MRI/Abdomen with contrast 05/03: thrombosis of the portal vein with portal venous hepatic shunt, shunt appears patent. MRI of right foot 05/04 to rule out DVT: pending read Endocrine: Diabetes Mellitus/Hyperglycemia - BGMs improving, Assessment/Plan: On Novolog ac/hs, Levemir 35 units @ hs, Levemir 35 units in a.m. Monitor BGMs, adjusted sliding scale for tighter control Anion gap 9, HmgA1c 10.6 Needs close follow up with a clinic on d/c Patient is non compliant with home meds which makes treating her DM challenging On admission her BGMs were reported to be in the 600s Muscular/Skeletal: Diabetic Foot Ulceration of Right Foot - acute on chronic Assessment/Plan: Has diabetic foot ulcer of right foot with drainage Wound culture shows Klebsiella pneumonia, ESBL,Group D On Vancomycine and Impenem podiatry has been consulted to evaluate and collagenase ordered MRI of foot to rule out osteomylitis GI: Pancreatitis - chronic Abdominal Pain - improving Assessment/Plan: Lipase [id number] Tolerating diet, no nausea or vomiting MRI/Abdomen with contrast 05/03: thrombosis of the portal vein with portal venous hepatic shunt, shunt appears patent Will start on heparin drip, will likely need IVC filter and senior living anticoagulation IR to be consulted Alcoholic Liver Cirrhosis - chronic Assessment/Plan: will start on Corgard F.E.N. Fluids: tolerating PO Electrolytes: monitor Nutrition: diabetic diet Prophylaxis: GI: Zantac DVT: On a heparin drip Disposition: Continues to require inpatient hospitalization. Full code.
[2017-05-04 10:04] LABS: ALBUMIN 2.5 g/dl (3.4-5.0); ANION GAP 9 (8-16); BILIRUBIN,TOTAL 0.4 mg/dL (0.2-1.0); CALCIUM 8.3 mg/dL (8.5-10.1); CO2 21 mmol/L (21-32); COCKROFT - GAULT 124.8395; CREATININE 0.7 mg/dL (0.55-1.02); GLUCOSE,RANDOM 225 mg/dL (74-106); SGOT/AST 74 U/L (15-37); SGPT/ALT 83 U/L (12-78); TOT PROT 7.3 g/dl (6.4-8.2)
[2017-05-04 10:05] LABS: ALK PHOS 181 U/L (45-117)
[2017-05-04] MEDS ORDERED: INSULIN (NOVOLOG) ASPART 100 UNITS/ML 10ML VIAL ONE (12:16)
[2017-05-04] MEDS: HEPARIN - 25,000 UNIT in SODIUM CHLORIDE 495 ML IV SCH ×2 (12:18→18:29)
--- NOTE | 2017-05-04 12:55 | PN ---
Progress Note, Physician History of Present Illness: isadora main issue is pain - Current Medication List Current Medications: Active Medications Collagenase (Santyl -) 1 applic TP DAILY [facility] Last Admin: 05/04/17 09:18 Dose: 1 applic Cyclobenzaprine HCl (Flexeril -) 5 mg PO BID [facility] Last Admin: 05/04/17 09:12 Dose: 5 mg Gabapentin (Neurontin -) 400 mg PO TID [facility] Last Admin: 05/04/17 05:51 Dose: 400 mg Heparin Sodium (Porcine) (Heparin -) 1,000 unit IVPUSH PRN PRN PRN Reason: Heparin Last Admin: 05/04/17 01:32 Dose: 1,000 unit Heparin Sodium (Porcine) (Heparin -) 5,000 unit IVPUSH PRN PRN PRN Reason: Heparin Ceftriaxone Sodium (Rocephin 1gm Ivpb (Pre-Docked)) 50 mls @ 100 mls/hr IVPB DAILY [facility] Last Admin: 05/04/17 09:12 Dose: 100 mls/hr Heparin Sodium (Porcine) 25, (000 unit/ Sodium Chloride) 500 mls @ 20 mls/hr IV TITR SIRIA; 1,000 UNIT/HR PRN Reason: Protocol Last Admin: 05/04/17 12:18 Dose: Not Given Insulin Aspart (Novolog Vial Sliding Scale -) 1 vial SQ ACHS [facility] PRN Reason: Protocol Last Admin: 05/04/17 12:17 Dose: 8 units Insulin Detemir (Levemir Vial) 35 units SQ AM [facility] Last Admin: 05/04/17 06:57 Dose: 35 unit Insulin Detemir (Levemir Vial) 35 units SQ HS [facility] Last Admin: 05/03/17 22:39 Dose: 35 units Lisinopril (Prinivil) 20 mg PO DAILY [facility] Last Admin: 05/04/17 09:12 Dose: 20 mg Morphine Sulfate (Morphine Injection -) 2 mg IVPUSH Q4H PRN PRN Reason: PAIN Last Admin: 05/04/17 10:42 Dose: 2 mg Nadolol (Corgard -) 20 mg PO DAILY [facility] Last Admin: 05/04/17 09:13 Dose: 20 mg Pregabalin (Lyrica -) 75 mg PO HS [facility] Last Admin: 05/03/17 22:36 Dose: 75 mg Ranitidine HCl (Zantac -) 150 mg PO BID [facility] Last Admin: 05/04/17 09:12 Dose: 150 mg Thiamine HCl (Vitamin B1 -) 100 mg PO [facility] Last Admin: 05/03/17 22:37 Dose: 100 mg Trazodone HCl (Desyrel -) 200 mg PO [facility] Last Admin: 05/03/17 22:38 Dose: 200 mg - Objective Vital Signs: Vital Signs Temperature 97.7 F 05/04/17 06:00 Pulse Rate 86 05/04/17 06:00 Respiratory Rate 20 05/04/17 06:00 Blood Pressure 142/83 05/04/17 06:00 O2 Sat by Pulse Oximetry (%) 99 05/03/17 21:00 Constitutional: Yes: No Distress, Calm Respiratory: Yes: Regular, CTA Bilaterally Gastrointestinal: Yes: Normal Bowel Sounds, Soft Musculoskeletal: Yes: Other Extremities: Yes: Other Wound/Incision: Yes: Dressing Dry and Intact 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: Yes: Alert, Oriented Psychiatric: Yes: Alert Labs: CBC, BMP 05/04/17 08:35 05/04/17 08:35 INR, PTT INR 1.16 (0.82-1.09) H 05/01/17 06:00 - ....Imaging MRI: Report Reviewed, Image Reviewed Assessment/Plan Problems (1) Elevated lipase Code(s): R74.8 - ABNORMAL LEVELS OF OTHER SERUM ENZYMES (2) Insulin dependent diabetes mellitus Code(s): E11.9 - TYPE 2 DIABETES MELLITUS WITHOUT COMPLICATIONS 

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
[2017-05-04] MEDS: VANCOMYCIN 1,250 MG in DEXTROSE 5%-WATER - 250 ML IVPB SCH (15:35)
[2017-05-04] MEDS: ERTAPENEM SODIUM 1 GM in SODIUM CHLORIDE 50 ML IVPB SCH (16:00)
[2017-05-04] MEDS ORDERED: traZODone HCL 50 MG TABLET (FP) ONE (22:48)
[2017-05-04] MEDS: PREGABALIN 25 MG CAPSULE PO SCH (22:54)
[2017-05-04] MEDS: THIAMINE HCL 100 MG TABLET (FP) PO SCH (22:54)
[2017-05-04] MEDS: traZODone HCL 100 MG TABLET (FP) PO SCH (22:55)
[2017-05-05] MEDS: morphine CARPU-JECT 2 MG/1 ML DISP.SYRIN IVPUSH PRN ×2 (02:19→07:24)
[2017-05-05] MEDS: INSULIN DETEMIR 100 UNITS/ML MDV SQ SCH ×2 (06:29→21:09)
[2017-05-05] MEDS: GABAPENTIN 400 MG CAPSULE (FP) PO SCH ×3 (06:29→21:17)
[2017-05-05] MEDS: INSULIN SLIDING SCALE (NOVOLOG) 1 VIAL SQ SCH ×4 (06:30→21:10)
[2017-05-05 07:17] LABS: MCH 30.5 pg (25.7-33.7); MEAN CELL VOLUME 89.5 fl (80-96); MEAN PLT VOLUME 8.2 fl (7.5-11.1); PLATELET COUNT 160 K/MM3 (134-434); WHITE BLOOD COUNT 3.4 K/mm3 (4.0-10.0)
[2017-05-05] MEDS ORDERED: oxyCODONE HCL 5 MG TABLET PO PRN (08:08)
--- NOTE | 2017-05-05 08:15 | PN ---
Physical Exam: SUBJECTIVE: Patient seen and examined at bedside. Complains of pain to right foot. OBJECTIVE: Vital Signs Period Temp Pulse Resp BP Sys/Resendez Pulse Ox Last 24 Hr 98.0 F-98.2 F 75-100 18-20 118-139/61-91 98-99 GENERAL: The patient is awake, alert, and fully oriented, in no acute distress. HEAD: Normal with no signs of trauma. EYES: PERRL, extraocular movements intact, sclera anicteric, conjunctiva clear. No ptosis. LUNGS: Breath sounds equal, clear to auscultation bilaterally, no wheezes, no crackles, no accessory muscle use. HEART: Regular rate and rhythm, S1, S2 without murmur, rub or gallop. ABDOMEN: Soft, nontender, nondistended, normoactive bowel sounds, no guarding, no rebound, no hepatosplenomegaly, no masses. EXTREMITIES: 2+ pulses, warm, well-perfused, no edema. RIGHT FOOT: Plantar surface 1cm L x 1cm W x surface ulceration, granular base, hyperkeratotic borders; no drainage, no erythema, no sign of infection NEUROLOGICAL: Cranial nerves II through XII grossly intact. Normal speech, gait not observed. Laboratory Results - last 24 hr 05/04/17 05/04/17 05/04/17 08:35 08:35 08:35 WBC 3.1 L RBC 3.82 Hgb 11.5 Hct 34.4 MCV 90.1 MCHC 33.3 RDW 15.2 Plt Count 159 MPV 8.2 Neutrophils % 32.6 L Lymphocytes % 52.1 H Monocytes % 15.1 H Eosinophils % 0.0 Basophils % 0.2 PTT (Actin FS) 64.2 H D Sodium 138 Potassium 4.1 Chloride 108 H Carbon Dioxide 21 Anion Gap 9 BUN 15 Creatinine 0.7 Creat Clearance w eGFR > 60 POC Glucometer Random Glucose 225 H Calcium 8.3 L Total Bilirubin 0.4 D AST 74 H ALT 83 H Alkaline Phosphatase 181 H Total Protein 7.3 Albumin 2.5 L 05/04/17 05/04/17 05/04/17 11:49 17:29 22:53 WBC RBC Hgb Hct MCV MCHC RDW Plt Count MPV Neutrophils % Lymphocytes % Monocytes % Eosinophils % Basophils % PTT (Actin FS) Sodium Potassium Chloride Carbon Dioxide Anion Gap BUN Creatinine Creat Clearance w eGFR POC Glucometer 212 175 157 Random Glucose Calcium Total Bilirubin AST ALT Alkaline Phosphatase Total Protein Albumin 05/05/17 05/05/17 05/05/17 05:38 05:38 05:50 WBC 3.4 L RBC 3.55 L Hgb 10.8 Hct 31.8 L MCV 89.5 MCHC 34.0 RDW 15.0 Plt Count 160 MPV 8.2 Neutrophils % Lymphocytes % Monocytes % Eosinophils % Basophils % PTT (Actin FS) 65.8 H Sodium Potassium Chloride Carbon Dioxide Anion Gap BUN Creatinine Creat Clearance w eGFR POC Glucometer 186 Random Glucose Calcium Total Bilirubin AST ALT Alkaline Phosphatase Total Protein Albumin Active Medications Generic Name Dose Route Start Last Admin Trade Name Freq PRN Reason Stop Dose Admin Collagenase 1 applic 05/01/17 15:45 05/04/17 09:18 Santyl - TP 1 applic DAILY SIRIA Administration Cyclobenzaprine HCl 5 mg 05/01/17 11:30 05/04/17 22:54 Flexeril - PO 5 mg BID SIRIA Administration Gabapentin 400 mg 04/30/17 14:00 05/05/17 06:29 Neurontin - PO 400 mg TID SIRIA Administration Heparin Sodium (Porcine) 1,000 unit 05/03/17 12:04 05/04/17 01:32 Heparin - IVPUSH 1,000 unit PRN PRN Administration Heparin Heparin Sodium (Porcine) 5,000 unit 05/03/17 11:34 Heparin - IVPUSH PRN PRN Heparin Ceftriaxone Sodium 50 mls @ 100 mls/hr 05/01/17 14:00 05/04/17 09:12 Rocephin 1gm Ivpb (Pre-Docked) IVPB 100 mls/hr DAILY [facility]IA Administration Heparin Sodium (Porcine) 25, 500 mls @ 20 mls/hr 05/03/17 12:15 05/04/17 18:29 000 unit/ Sodium Chloride IV 22 mls/hr TITR SIRIA Administration Protocol 1,000 UNIT/HR Ertapenem 1 gm/ Sodium 50 mls @ 100 mls/hr 05/04/17 13:00 05/04/17 16:00 Chloride IVPB 100 mls/hr DAILY SIRIA Administration Protocol Vancomycin HCl 1,250 mg/ 250 mls @ 166.667 mls/hr 05/04/17 13:30 05/04/17 15:35 Dextrose IVPB 166.667 mls/hr DAILY@1330 [facility] Administration Protocol Insulin Aspart 1 vial 05/02/17 09:10 05/05/17 06:30 Novolog Vial Sliding Scale - SQ Not Given ACHS [facility] Protocol Insulin Detemir 35 units 05/01/17 07:00 05/05/17 06:29 Levemir Vial SQ 35 unit AM [facility] Administration Insulin Detemir 35 units 05/03/17 15:02 05/04/17 22:55 Levemir Vial SQ 35 units HS [facility] Administration Lisinopril 20 mg 05/01/17 10:00 05/04/17 09:12 Prinivil PO 20 mg DAILY [facility] Administration Nadolol 20 mg 05/04/17 10:00 05/04/17 09:13 Corgard - PO 20 mg DAILY [facility] Administration Oxycodone HCl 5 mg 05/05/17 08:08 Roxicodone - PO Q6H PRN PAIN Pregabalin 75 mg 04/30/17 22:00 05/04/17 22:54 Lyrica - PO 75 mg HS [facility] Administration Ranitidine HCl 150 mg 04/30/17 22:00 05/04/17 22:56 Zantac - PO 150 mg BID [facility]IA Administration Thiamine HCl 100 mg 04/30/17 22:00 05/04/17 22:54 Vitamin B1 - PO 100 mg HS [facility] Administration Trazodone HCl 200 mg 04/30/17 22:00 05/04/17 22:55 Desyrel - PO 200 mg HS [facility] Administration Microbiology 05/01/17 11:45 Blood - Peripheral Venous Blood Culture - Preliminary NO GROWTH OBTAINED AFTER 72 HOURS, INCUBATION TO CONTINUE FOR 2 DAYS. 05/01/17 11:45 Blood - Peripheral Venous Blood Culture - Preliminary NO GROWTH OBTAINED AFTER 72 HOURS, INCUBATION TO CONTINUE FOR 2 DAYS. 05/01/17 11:40 Foot - Right Plantar Gram Stain - Final 05/01/17 11:40 Foot - Right Plantar Wound Culture - Final Klebsiella Pneumoniae - Esbl Enterococcus Faecalis Mr S Aureus Diphtheroid/Corynebacterium ASSESSMENT/PLAN: 46 year-old owman with a PMH of polysubstance abuse, HTN, GERD, liver cirrhosis s/p TIPS (2009), IDDM, pancreatitis. Admitted for hyperglycemia and abdominal pain. Hyperglycemia IDDM --continue Levemir --Novolog sliding scale coverage Portal vein thrombosis Liver cirrhosis with ascites s/p TIPS procedure 2009 --discussed with Drs. Jiang and Nidia; area of thrombosis/collection in portal vein that may likely be chronic --will get doppler study of shunt --stop heparin drip Pancreatitis --lipase was 1441 on admission, now wnl --afebrile, no leukocytosis, tolerating food Diabetic right foot ulcer r/o osteo --Culture of foot ulcer grew Klebsiella-ESBL, Enterococcus faecalis, and MRSA --continue ceftriaxone (day #5), ertapenem (day #2), Vanco (day #2) --collagenase daily --MRI right foot done to r/o osteo, pending dictation Hypertension --BP well-controlled --continue lisinporil GERD --continue Zantac F/E/N Fluids: PO intake adequate Electrolytes: replete as indicated Nutrition: diabetic low sodium DVT prophylaxis: heparin drip dc'd; will start subq heparin in am Physical therapy eval Dispo: continues to require inpatient care. Full code. Visit type - Emergency Visit Emergency Visit: Yes ED Registration Date: 04/30/17 Care time: The patient presented to the Emergency Department on the above date and was hospitalized for further evaluation of their emergent condition. - New Patient This patient is new to me today: Yes Date on this admission: 05/05/17 - Critical Care Critical Care patient: No
[2017-05-05] MEDS ORDERED: INSULIN (NOVOLOG) ASPART 100 UNITS/ML 10ML VIAL ONE (10:11)
[2017-05-05] MEDS: CYCLOBENZAPRINE HCL 10 MG TABLET (FP) PO SCH ×2 (10:46→21:17)
[2017-05-05] MEDS: CEFTRIAXONE 50 ML IVPB SCH (10:46)
[2017-05-05] MEDS: LISINOPRIL 20 MG TABLET (FP) PO SCH (10:48)
[2017-05-05] MEDS: RANITIDINE HCL 150 MG TABLET (FP) PO SCH ×2 (10:48→21:17)
[2017-05-05] MEDS: COLLAGENASE CLOSTRIDIUM HIST. 30 GRAMS TUBE TP SCH (10:51)
[2017-05-05] MEDS: NADOLOL 20 MG TABLET (FP) PO SCH (10:57)
[2017-05-05] MEDS ORDERED: diphenhydrAMINE HCL 25 MG CAPSULE (FP) PO ONE (11:30)
[2017-05-05] MEDS: ERTAPENEM SODIUM 1 GM in SODIUM CHLORIDE 50 ML IVPB SCH (11:36)
[2017-05-05] MEDS: HEPARIN - 25,000 UNIT in SODIUM CHLORIDE 495 ML IV SCH (13:03)
[2017-05-05] MEDS: VANCOMYCIN 1,250 MG in DEXTROSE 5%-WATER - 250 ML IVPB SCH (13:04)
--- NOTE | 2017-05-05 16:37 | PN ---
GI Progress Note Subjective: No acute events MRI revealed ? PVT. Reviewed with Dr. Jiang. It appears as though the portal section of the TIPS may be incompletely occuluded. The proximal PV appeared normal. In discussion w/ Ms. Corral, she has never had a TIPS revision or purposefully narrowed however she has needed to have it declogged twice because "she was accumulating fluid in coleman belly again". The management of her TIPS was in [place] and she hasn't sought evaluation while living in [place] from a transplant national account manager. - Objective Vital Signs: Vital Signs Temperature 98.2 F 05/05/17 10:00 Pulse Rate 80 05/05/17 10:00 Respiratory Rate 20 05/05/17 10:00 Blood Pressure 135/58 05/05/17 10:00 O2 Sat by Pulse Oximetry (%) 98 05/05/17 10:00 Constitutional: Calm Cardiovascular: Yes: Regular Rate and Rhythm Respiratory: Yes: CTA Bilaterally ...Auscultate: Yes: Normoactive Bowel Sounds ...Palpate: Yes: Tenderness (RUQ) Edema: No 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: Yes: Alert, Oriented Labs: CBC, BMP 05/05/17 05:38 05/04/17 08:35 INR, PTT INR 1.16 (0.82-1.09) H 05/01/17 06:00 Hepatic Panel Total Bilirubin 0.4 mg/dL (0.2-1.0) D 05/04/17 08:35 AST 74 U/L (15-37) H 05/04/17 08:35 ALT 83 U/L (12-78) H 05/04/17 08:35 Alkaline Phosphatase 181 U/L (45-117) H 05/04/17 08:35 Albumin 2.5 g/dl (3.4-5.0) L 05/04/17 08:35 Assessment/Plan Partial occulsion of TIPS: Ms. Corral will need further evaluation of her TIPs. I Discussed options regarding this with her ie. [facility] or [facility] as institutions for further eval. I spoke with Dr. Donnelly @ [facility] regarding this. She agreed that she needs it evaluated and recommended transfer to medicien service. If she is willing to be transferred to [facility] this can be arranged otherwise alternate follow-up will need to be arranged. Discused w/ hospitalist Danny.
[2017-05-05] MEDS ORDERED: traZODone HCL 50 MG TABLET (FP) ONE (21:13)
[2017-05-05] MEDS: PREGABALIN 25 MG CAPSULE PO SCH (21:17)
[2017-05-05] MEDS: THIAMINE HCL 100 MG TABLET (FP) PO SCH (21:18)
[2017-05-05] MEDS: traZODone HCL 100 MG TABLET (FP) PO SCH (21:18)
[2017-05-06] MEDS: GABAPENTIN 400 MG CAPSULE (FP) PO SCH ×3 (06:32→22:09)
[2017-05-06] MEDS: INSULIN SLIDING SCALE (NOVOLOG) 1 VIAL SQ SCH ×4 (06:32→22:10)
[2017-05-06] MEDS: INSULIN DETEMIR 100 UNITS/ML MDV SQ SCH ×2 (06:32→22:11)
[2017-05-06] MEDS ORDERED: PT OWN MED DRAWER 7, Y5N ONE ×2 (10:47→12:54)
--- NOTE | 2017-05-06 11:30 | PN ---
Progress Note, Physician History of Present Illness: patient stable doing well official result of leg mri still pending gi note noted and about partial occlusion of the tips plan to be transferred to tertiary care center clinically patient is stable - Current Medication List Current Medications: Active Medications Collagenase (Santyl -) 1 applic TP DAILY [facility] Last Admin: 05/05/17 10:51 Dose: 1 applic Cyclobenzaprine HCl (Flexeril -) 5 mg PO BID [facility] Last Admin: 05/05/17 21:17 Dose: 5 mg Gabapentin (Neurontin -) 400 mg PO TID [facility] Last Admin: 05/06/17 06:32 Dose: Not Given Heparin Sodium (Porcine) (Heparin -) 5,000 unit SQ BID [facility] Ceftriaxone Sodium (Rocephin 1gm Ivpb (Pre-Docked)) 50 mls @ 100 mls/hr IVPB DAILY [facility] Last Admin: 05/05/17 10:46 Dose: 100 mls/hr Ertapenem 1 gm/ Sodium (Chloride) 50 mls @ 100 mls/hr IVPB DAILY [facility] PRN Reason: Protocol Last Admin: 05/05/17 11:36 Dose: 100 mls/hr Vancomycin HCl 1,250 mg/ (Dextrose) 250 mls @ 166.667 mls/hr IVPB DAILY@1330 [facility] PRN Reason: Protocol Last Admin: 05/05/17 13:04 Dose: 166.667 mls/hr Insulin Aspart (Novolog Vial Sliding Scale -) 1 vial SQ ACHS [facility] PRN Reason: Protocol Last Admin: 05/06/17 06:32 Dose: Not Given Insulin Detemir (Levemir Vial) 35 units SQ AM [facility] Last Admin: 05/06/17 06:32 Dose: Not Given Insulin Detemir (Levemir Vial) 35 units SQ HS [facility] Last Admin: 05/05/17 21:09 Dose: Not Given Lisinopril (Prinivil) 20 mg PO DAILY [facility] Last Admin: 05/05/17 10:48 Dose: 20 mg Nadolol (Corgard -) 20 mg PO DAILY [facility] Last Admin: 05/05/17 10:57 Dose: 20 mg Oxycodone HCl (Roxicodone -) 5 mg PO Q6H PRN PRN Reason: PAIN Pregabalin (Lyrica -) 75 mg PO HS [facility] Last Admin: 06/05/17 21:17 Dose: 75 mg Ranitidine HCl (Zantac -) 150 mg PO BID [facility] Last Admin: 05/05/17 21:17 Dose: 150 mg Thiamine HCl (Vitamin B1 -) 100 mg PO [facility] Last Admin: 05/05/17 21:18 Dose: 100 mg Trazodone HCl (Desyrel -) 200 mg PO [facility] Last Admin: 05/05/17 21:18 Dose: 200 mg - Objective Vital Signs: Vital Signs Temperature 98.6 F 05/05/17 21:00 Pulse Rate 75 05/05/17 21:00 Respiratory Rate 16 05/05/17 21:00 Blood Pressure 116/63 05/05/17 21:00 O2 Sat by Pulse Oximetry (%) 94 L 05/05/17 21:00 Constitutional: Yes: No Distress, Calm Cardiovascular: Yes: Regular Rate and Rhythm Respiratory: Yes: Regular, CTA Bilaterally Gastrointestinal: Yes: Normal Bowel Sounds, Soft Musculoskeletal: Yes: Other Extremities: Yes: Other Wound/Incision: Yes: Draining, Other 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: Yes: Alert, Oriented Psychiatric: Yes: Alert, Oriented Labs: CBC, BMP 05/05/17 05:38 05/04/17 08:35 INR, PTT INR 1.16 (0.82-1.09) H 05/01/17 06:00 - ....Imaging MRI: Image Reviewed, Other (awaiting reports) Assessment/Plan Problems (1) Elevated lipase Code(s): R74.8 - ABNORMAL LEVELS OF OTHER SERUM ENZYMES (2) Insulin dependent diabetes mellitus Code(s): E11.9 - TYPE 2 DIABETES MELLITUS WITHOUT COMPLICATIONS Z79.4 - USP (CURRENT) USE OF INSULIN (3) Elevated liver enzymes Code(s): R74.8 - ABNORMAL LEVELS OF OTHER SERUM ENZYMES fever esbl/mrsa infection of the wound portal vein thrombosis plan changed abx await for results of mri of the leg rest continue current mgmt rest as per primary gi note noted await final plan check vanco trough
--- NOTE | 2017-05-06 11:42 | PN ---
Progress Note (short form) - Note Progress Note: Patient refused xfer to [facility] yesterday. Per discussion with hospitalist yesterday , alternate plans for evaluation of her TIPS would need to be considered ? Анна
[2017-05-06] MEDS: RANITIDINE HCL 150 MG TABLET (FP) PO SCH ×2 (12:06→22:07)
[2017-05-06] MEDS: CEFTRIAXONE 50 ML IVPB SCH (12:06)
[2017-05-06] MEDS: HEPARIN NA (PORCINE) 5,000 UNITS/ML 1ML VIAL SQ SCH ×2 (12:07→22:09)
[2017-05-06] MEDS: LISINOPRIL 20 MG TABLET (FP) PO SCH (12:07)
[2017-05-06] MEDS: NADOLOL 20 MG TABLET (FP) PO SCH (12:07)
[2017-05-06] MEDS: CYCLOBENZAPRINE HCL 10 MG TABLET (FP) PO SCH ×2 (12:07→22:08)
[2017-05-06] MEDS: ERTAPENEM SODIUM 1 GM in SODIUM CHLORIDE 50 ML IVPB SCH (12:07)
[2017-05-06] MEDS ORDERED: INSULIN (NOVOLOG) ASPART 100 UNITS/ML 10ML VIAL ONE ×2 (12:42→13:42)
[2017-05-06] MEDS: COLLAGENASE CLOSTRIDIUM HIST. 30 GRAMS TUBE TP SCH ×2 (12:52→15:11)
[2017-05-06] MEDS: VANCOMYCIN 1,250 MG in DEXTROSE 5%-WATER - 250 ML IVPB SCH (15:05)
[2017-05-06] MEDS ORDERED: oxyCODONE HCL 5 MG TABLET PO PRN (15:40)
--- NOTE | 2017-05-06 16:09 | PN ---
Physical Exam: SUBJECTIVE: Patient seen and examined at bedside. Complaining of pain to right lower leg and foot. Also complains of "liver pain" which she has had for years. Refusing to take oral pain meds. Insists on morphine or nothing. Also refusing antibiotics, blood draws, and daily dressing changes unless she gets morphine. OBJECTIVE: Vital Signs Period Temp Pulse Resp BP Sys/Resendez Pulse Ox Last 24 Hr 97.7 F-98.6 F 75-87 16-20 116-143/63-93 94-94 GENERAL: The patient is awake, alert, and fully oriented, in no acute distress. Well-groomed, hair, lipstick, eye makeup. HEAD: Normal with no signs of trauma. LUNGS: Breath sounds equal, clear to auscultation bilaterally, no wheezes, no crackles, no accessory muscle use. HEART: Regular rate and rhythm, S1, S2 without murmur, rub or gallop. ABDOMEN: Mild upper right quadrant tenderness. EXTREMITIES: 2+ pulses, warm, well-perfused, no edema. NEUROLOGICAL: Cranial nerves II through XII grossly intact. Normal speech, gait not observed. CBCD WBC 3.4 K/mm3 (4.0-10.0) L 05/05/17 05:38 RBC 3.55 M/mm3 (3.60-5.2) L 05/05/17 05:38 Hgb 10.8 GM/dL (10.7-15.3) 05/05/17 05:38 Hct 31.8 % (32.4-45.2) L 05/05/17 05:38 MCV 89.5 fl (80-96) 05/05/17 05:38 MCHC 34.0 g/dl (32.0-36.0) 05/05/17 05:38 RDW 15.0 % (11.6-15.6) 05/05/17 05:38 Plt Count 160 K/MM3 (134-434) 05/05/17 05:38 MPV 8.2 fl (7.5-11.1) 05/05/17 05:38 CMP Sodium 138 mmol/L (136-145) 05/04/17 08:35 Potassium 4.1 mmol/L (3.5-5.1) 05/04/17 08:35 Chloride 108 mmol/L (98-107) H 05/04/17 08:35 Carbon Dioxide 21 mmol/L (21-32) 05/04/17 08:35 Anion Gap 9 (8-16) 05/04/17 08:35 BUN 15 mg/dL (7-18) 05/04/17 08:35 Creatinine 0.7 mg/dL (0.55-1.02) 05/04/17 08:35 Creat Clearance w eGFR > 60 (>60) 05/04/17 08:35 Calcium 8.3 mg/dL (8.5-10.1) L 05/04/17 08:35 Total Bilirubin 0.4 mg/dL (0.2-1.0) D 05/04/17 08:35 AST 74 U/L (15-37) H 05/04/17 08:35 ALT 83 U/L (12-78) H 05/04/17 08:35 Alkaline Phosphatase 181 U/L (45-117) H 05/04/17 08:35 Total Protein 7.3 g/dl (6.4-8.2) 05/04/17 08:35 Albumin 2.5 g/dl (3.4-5.0) L 05/04/17 08:35 Laboratory Results - last 24 hr 05/03/17 05/05/17 05/05/17 14:50 17:32 20:58 PTT (Actin FS) Cancelled POC Glucometer 171 177 05/06/17 11:59 PTT (Actin FS) POC Glucometer 361 Active Medications Generic Name Dose Route Start Last Admin Trade Name Freq PRN Reason Stop Dose Admin Collagenase 1 applic 05/01/17 15:45 05/06/17 15:11 Santyl - TP Not Given DAILY [facility] Cyclobenzaprine HCl 5 mg 05/01/17 11:30 05/06/17 12:07 Flexeril - PO 5 mg BID [facility] Administration Gabapentin 400 mg 04/30/17 14:00 05/06/17 15:05 Neurontin - PO 400 mg TID [facility] Administration Heparin Sodium (Porcine) 5,000 unit 05/06/17 10:00 05/06/17 12:07 Heparin - SQ Not Given BID [facility] Ceftriaxone Sodium 50 mls @ 100 mls/hr 05/01/17 14:00 05/06/17 12:06 Rocephin 1gm Ivpb (Pre-Docked) IVPB Not Given DAILY [facility] Ertapenem 1 gm/ Sodium 50 mls @ 100 mls/hr 05/04/17 13:00 05/06/17 12:07 Chloride IVPB Not Given DAILY [facility] Protocol Vancomycin HCl 1,250 mg/ 250 mls @ 166.667 mls/hr 05/04/17 13:30 05/06/17 15:05 Dextrose IVPB Not Given DAILY@1330 [facility] Protocol Insulin Aspart 1 vial 05/02/17 09:10 05/06/17 12:50 Novolog Vial Sliding Scale - SQ 14 units ACHS [facility] Administration Protocol Insulin Detemir 35 units 05/01/17 07:00 05/06/17 06:32 Levemir Vial SQ Not Given AM [facility] Insulin Detemir 35 units 05/03/17 15:02 05/05/17 21:09 Levemir Vial SQ Not Given HS [facility] Lisinopril 20 mg 05/01/17 10:00 05/06/17 12:07 Prinivil PO Not Given DAILY [facility] Nadolol 20 mg 05/04/17 10:00 05/06/17 12:07 Corgard - PO Not Given DAILY [facility] Oxycodone HCl 5 mg 05/06/17 15:40 Roxicodone - PO Q4H PRN PAIN Pregabalin 75 mg 04/30/17 22:00 05/05/17 21:17 Lyrica - PO 75 mg HS [facility] Administration Ranitidine HCl 150 mg 04/30/17 22:00 05/06/17 12:06 Zantac - PO 150 mg BID [facility] Administration Thiamine HCl 100 mg 04/30/17 22:00 05/05/17 21:18 Vitamin B1 - PO 100 mg HS [facility] Administration Trazodone HCl 200 mg 04/30/17 22:00 05/05/17 21:18 Desyrel - PO 200 mg HS [facility] Administration MRI right foot 1. Soft tissue edema 2. subchondral cystic changes of second metatarsal head and base of the proximal phalanx without definite evidence of osteo 3. question of bone marrow edema of the fifth toe middle and distal phalanges; may be poor fat suppression 4. bone marrow edema of the cuboid, stress fracture v. neuropathic change v. osteo cannot be ruled out ASSESSMENT/PLAN 46 year-old woman with a PMH of polysubstance abuse, HTN, GERD, liver cirrhosis s/p TIPS (2009), IDDM, pancreatitis. Admitted for hyperglycemia and abdominal pain. Hyperglycemia IDDM --continue Levemir --Novolog sliding scale coverage Portal vein thrombosis Liver cirrhosis with ascites s/p TIPS procedure 2009 --both MRI and US show TIPS shunt is patent; MRI shows thrombosis/collection in portal vein; this is likely a chronic, non-emergent finding --patient has no signs of acute liver failure: LFTs are wnl, no sign of esophageal varices, no significant ascities, Cr 0.7 --will discuss further with Dr. Jiang --discussed with Dr. Garza, resident associate at [facility]; will need to get patient accepted to medicine service in order to transfer; ongoing discussions with transfer center --heparin drip d/c'd 05/05 Pancreatitis --lipase was 1441 on admission, now wnl --afebrile, no leukocytosis, tolerating food Diabetic right foot ulcer r/o osteo --culture of foot ulcer grew Klebsiella-ESBL, Enterococcus faecalis, and MRSA --continue ceftriaxone (day #6), ertapenem (day #3), Vanco (day #3) --collagenase daily --MRI right foot done to r/o osteo, findings are equivocal (see above) --will get input from Dr. Valdovinos re: duration of IV therapy; patient is a polysubstance abuser and may not be a candidate for PICC line Hypertension --BP well-controlled --continue lisinporil GERD --continue Zantac F/E/N Fluids: PO intake adequate Electrolytes: replete as indicated Nutrition: diabetic low sodium DVT prophylaxis: lovenox Physical therapy eval Dispo: continues to require inpatient care. Full code. Visit type - Emergency Visit Emergency Visit: Yes ED Registration Date: 04/30/17 Care time: The patient presented to the Emergency Department on the above date and was hospitalized for further evaluation of their emergent condition. - New Patient This patient is new to me today: No - Critical Care Critical Care patient: No
--- NOTE | 2017-05-06 16:34 | PN ---
Progress Note, Physician History of Present Illness: patient telling me she was waiting for transfer,according to gi notes patient refused transfer patient main issue is pain says he pain medications are not enough - Current Medication List Current Medications: Active Medications Collagenase (Santyl -) 1 applic TP DAILY [facility] Last Admin: 05/06/17 15:11 Dose: Not Given Cyclobenzaprine HCl (Flexeril -) 5 mg PO BID [facility] Last Admin: 05/06/17 12:07 Dose: 5 mg Enoxaparin Sodium (Lovenox -) 40 mg SQ DAILY [facility] Gabapentin (Neurontin -) 400 mg PO TID [facility] Last Admin: 05/06/17 15:05 Dose: 400 mg Heparin Sodium (Porcine) (Heparin -) 5,000 unit SQ BID [facility] Last Admin: 05/06/17 12:07 Dose: Not Given Ertapenem 1 gm/ Sodium (Chloride) 50 mls @ 100 mls/hr IVPB DAILY [facility] PRN Reason: Protocol Last Admin: 05/06/17 12:07 Dose: Not Given Vancomycin HCl 1,250 mg/ (Dextrose) 250 mls @ 166.667 mls/hr IVPB DAILY@1330 [facility] PRN Reason: Protocol Last Admin: 05/06/17 15:05 Dose: Not Given Insulin Aspart (Novolog Vial Sliding Scale -) 1 vial SQ ACHS [facility] PRN Reason: Protocol Last Admin: 05/06/17 12:50 Dose: 14 units Insulin Detemir (Levemir Vial) 35 units SQ AM [facility] Last Admin: 05/06/17 06:32 Dose: Not Given Insulin Detemir (Levemir Vial) 35 units SQ HS [facility] Last Admin: 05/05/17 21:09 Dose: Not Given Lisinopril (Prinivil) 20 mg PO DAILY [facility] Last Admin: 05/06/17 12:07 Dose: Not Given Nadolol (Corgard -) 20 mg PO DAILY [facility] Last Admin: 05/06/17 12:07 Dose: Not Given Oxycodone HCl (Roxicodone -) 5 mg PO Q4H PRN PRN Reason: PAIN Pregabalin (Lyrica -) 75 mg PO HS [facility] Last Admin: 05/05/17 21:17 Dose: 75 mg Ranitidine HCl (Zantac -) 150 mg PO BID [facility] Last Admin: 06/06/17 12:06 Dose: 150 mg Thiamine HCl (Vitamin B1 -) 100 mg PO [facility] Last Admin: 05/05/17 21:18 Dose: 100 mg Trazodone HCl (Desyrel -) 200 mg PO [facility] Last Admin: 05/05/17 21:18 Dose: 200 mg - Objective Vital Signs: Vital Signs Temperature 97.9 F 05/06/17 14:45 Pulse Rate 87 05/06/17 14:45 Respiratory Rate 20 05/06/17 14:45 Blood Pressure 133/93 05/06/17 14:45 O2 Sat by Pulse Oximetry (%) 94 L 05/06/17 09:00 Constitutional: Yes: Calm, Moderate Distress Cardiovascular: Yes: Regular Rate and Rhythm Respiratory: Yes: Regular, CTA Bilaterally Gastrointestinal: Yes: Normal Bowel Sounds, Distention Musculoskeletal: Yes: Other Extremities: Yes: Other Wound/Incision: Yes: Draining, Other (dressing present) 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: Yes: Alert, Oriented Psychiatric: Yes: Alert, Oriented Labs: CBC, BMP 05/05/17 05:38 05/04/17 08:35 INR, PTT INR 1.16 (0.82-1.09) H 05/01/17 06:00 - ....Imaging MRI: Report Reviewed, Image Reviewed Assessment/Plan Problems (1) Elevated lipase Code(s): R74.8 - ABNORMAL LEVELS OF OTHER SERUM ENZYMES (2) Insulin dependent diabetes mellitus Code(s): E11.9 - TYPE 2 DIABETES MELLITUS WITHOUT COMPLICATIONS Z79.4 - [employer]AGE [employer]ER (CURRENT) USE OF INSULIN (3) Elevated liver enzymes Code(s): R74.8 - ABNORMAL LEVELS OF OTHER SERUM ENZYMES fever esbl/mrsa infection of the wound plan continue current abx will need a total of 2 weeks duration follow vanco trough after 2 weeks repeat mri rest ct as per primary team
[2017-05-06] MEDS: ENOXAPARIN NA (PORCINE) 40 MG/0.4 ML DISP.SYRIN SQ SCH (16:48)
[2017-05-06] MEDS ORDERED: traZODone HCL 50 MG TABLET (FP) ONE (22:01)
[2017-05-06] MEDS: traZODone HCL 100 MG TABLET (FP) PO SCH (22:06)
[2017-05-06] MEDS: PREGABALIN 25 MG CAPSULE PO SCH (22:07)
[2017-05-06] MEDS: THIAMINE HCL 100 MG TABLET (FP) PO SCH (22:07)
[2017-05-07] MEDS ORDERED: HYDROmorphone HCL CARPU-JECT 1 MG/1 ML DISP.SYRIN IVPUSH ONE (01:34)
[2017-05-07] MEDS: GABAPENTIN 400 MG CAPSULE (FP) PO SCH ×2 (06:10→15:04)
[2017-05-07] MEDS: INSULIN DETEMIR 100 UNITS/ML MDV SQ SCH (06:11)
[2017-05-07] MEDS: INSULIN SLIDING SCALE (NOVOLOG) 1 VIAL SQ SCH ×3 (06:11→17:47)
[2017-05-07 07:14] LABS: INR 1.14 (0.82-1.09); PROTHROMBIN TIME (PATIENT) 12.6 SEC (9.98-11.88)
[2017-05-07 07:17] LABS: ALBUMIN 2.6 g/dl (3.4-5.0); BILIRUBIN,DIRECT 0.1 mg/dL (0.0-0.2); BILIRUBIN,TOTAL 0.4 mg/dL (0.2-1.0); CALCIUM 8.9 mg/dL (8.5-10.1); COCKROFT - GAULT 109.2335; CREATININE 0.8 mg/dL (0.55-1.02); MAGNESIUM 1.7 mg/dL (1.8-2.4); TOT PROT 7.7 g/dl (6.4-8.2)
[2017-05-07 07:21] LABS: BASOPHIL 0.1 % (0-2.0); MCH 30.5 pg (25.7-33.7); MCHC 33.8 g/dl (32.0-36.0); NEUTROPHILS 46.8 % (42.8-82.8); PLATELET COUNT 177 K/MM3 (134-434); WHITE BLOOD COUNT 3.9 K/mm3 (4.0-10.0)
[2017-05-07] MEDS ORDERED: PT OWN MED DRAWER 7, Y5N ONE (09:20)
[2017-05-07] MEDS: ENOXAPARIN NA (PORCINE) 40 MG/0.4 ML DISP.SYRIN SQ SCH (09:21)
[2017-05-07] MEDS: HEPARIN NA (PORCINE) 5,000 UNITS/ML 1ML VIAL SQ SCH (09:21)
[2017-05-07] MEDS: CYCLOBENZAPRINE HCL 10 MG TABLET (FP) PO SCH (09:28)
[2017-05-07] MEDS: NADOLOL 20 MG TABLET (FP) PO SCH (09:28)
[2017-05-07] MEDS: LISINOPRIL 20 MG TABLET (FP) PO SCH (09:28)
[2017-05-07] MEDS: RANITIDINE HCL 150 MG TABLET (FP) PO SCH (09:28)
[2017-05-07 11:17] VITALS: PULSE 78
[2017-05-07] MEDS: ERTAPENEM SODIUM 1 GM in SODIUM CHLORIDE 50 ML IVPB SCH (11:47)
[2017-05-07] MEDS ORDERED: INSULIN (NOVOLOG) ASPART 100 UNITS/ML 10ML VIAL ONE ×2 (12:17→12:41)
[2017-05-07] MEDS: COLLAGENASE CLOSTRIDIUM HIST. 30 GRAMS TUBE TP SCH (12:25)
[2017-05-07] MEDS ORDERED: oxyCODONE HCL 10 MG SUSTAINED ACTING TABLET PO SCH (14:30)
[2017-05-07 14:52] VITALS: BP 135/77; TEMP 98.2
[2017-05-07] MEDS: VANCOMYCIN 1,250 MG in DEXTROSE 5%-WATER - 250 ML IVPB SCH (15:34)
--- NOTE | 2017-05-07 17:06 | PN ---
Progress Note, Physician History of Present Illness: patient clinically stable patient says she does want to go [facility] now planning to sign out ama - Current Medication List Current Medications: Active Medications Collagenase (Santyl -) 1 applic TP DAILY [facility] Last Admin: 05/07/17 12:25 Dose: Not Given Cyclobenzaprine HCl (Flexeril -) 5 mg PO BID [facility] Last Admin: 05/07/17 09:28 Dose: 5 mg Enoxaparin Sodium (Lovenox -) 40 mg SQ DAILY [facility] Last Admin: 05/07/17 09:21 Dose: Not Given Gabapentin (Neurontin -) 400 mg PO TID [facility] Last Admin: 05/07/17 15:04 Dose: 400 mg Heparin Sodium (Porcine) (Heparin -) 5,000 unit SQ BID [facility] Last Admin: 05/07/17 09:21 Dose: Not Given Ertapenem 1 gm/ Sodium (Chloride) 50 mls @ 100 mls/hr IVPB DAILY [facility] PRN Reason: Protocol Last Admin: 05/07/17 11:47 Dose: 100 mls/hr Vancomycin HCl 1,250 mg/ (Dextrose) 250 mls @ 166.667 mls/hr IVPB DAILY@1330 [facility] PRN Reason: Protocol Last Admin: 05/07/17 15:34 Dose: Not Given Insulin Aspart (Novolog Vial Sliding Scale -) 1 vial SQ ACHS [facility] PRN Reason: Protocol Last Admin: 05/07/17 12:18 Dose: 12 units Insulin Detemir (Levemir Vial) 35 units SQ AM [facility] Last Admin: 05/07/17 06:11 Dose: 35 unit Insulin Detemir (Levemir Vial) 35 units SQ HS [facility] Last Admin: 05/06/17 22:11 Dose: Not Given Lisinopril (Prinivil) 20 mg PO DAILY [facility] Last Admin: 05/07/17 09:28 Dose: Not Given Nadolol (Corgard -) 20 mg PO DAILY [facility] Last Admin: 05/07/17 09:28 Dose: Not Given Oxycodone HCl (Roxicodone -) 5 mg PO Q4H PRN PRN Reason: PAIN Last Admin: 05/06/17 22:04 Dose: 5 mg Oxycodone HCl (Oxycontin -) 10 mg PO BID [facility] Last Admin: 05/07/17 15:04 Dose: 10 mg Pregabalin (Lyrica -) [address] [facility] Last Admin: 05/06/17 22:07 Dose: 75 mg Ranitidine HCl (Zantac -) 150 mg PO BID [facility] Last Admin: 05/07/17 09:28 Dose: 150 mg Thiamine HCl (Vitamin B1 -) [address] [facility] Last Admin: 05/06/17 22:07 Dose: Not Given Trazodone HCl (Desyrel -) [address] [facility] Last Admin: 05/06/17 22:06 Dose: 200 mg - Objective Vital Signs: Vital Signs Temperature 98.2 F 05/07/17 14:00 Pulse Rate 78 05/07/17 14:00 Respiratory Rate 18 05/07/17 14:00 Blood Pressure 135/77 05/07/17 14:00 O2 Sat by Pulse Oximetry (%) 96 05/07/17 09:00 Constitutional: Yes: No Distress, Calm Labs: CBC, BMP 05/07/17 05:38 05/07/17 05:38 INR, PTT INR 1.14 (0.82-1.09) 05/07/17 05:38 Assessment/Plan Problems (1) Elevated lipase Code(s): R74.8 - ABNORMAL LEVELS OF OTHER SERUM ENZYMES (2) Insulin dependent diabetes mellitus Code(s): E11.9 - TYPE 2 DIABETES MELLITUS WITHOUT COMPLICATIONS Z79.4 - 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
== END 2017-05-07 22:42 | disposition left against medical advice (07) | DRG 637 ==
LOC: SUPCPDRO 08:58 → JER 08:58 → JERBED 12:21 → J7W 16:30 → J4S 05-03 18:23
PROVIDERS: ADMIT Internal Medicine; ATTEND Nurse Practitioner Acute Care
DX: E11.65 Type 2 diabetes mellitus with hyperglycemia (principal); I81 Portal vein thrombosis; K86.1 Other chronic pancreatitis; L97.419 Non-pressure chronic ulcer of right heel and midfoot with unspecified severity; Z79.4 Long term (current) use of insulin; E11.621 Type 2 diabetes mellitus with foot ulcer; K21.9 Gastro-esophageal reflux disease without esophagitis; I10 Essential (primary) hypertension; F14.10 Cocaine abuse, uncomplicated; F10.10 Alcohol abuse, uncomplicated; E11.42 Type 2 diabetes mellitus with diabetic polyneuropathy; R10.9 Unspecified abdominal pain; Z59.0 Homelessness; R74.8 Abnormal levels of other serum enzymes; E83.42 Hypomagnesemia; B96.1 Klebsiella pneumoniae [K. pneumoniae] as the cause of diseases classified elsewhere; B95.62 Methicillin resistant Staphylococcus aureus infection as the cause of diseases classified elsewhere; K70.30 Alcoholic cirrhosis of liver without ascites
CPT/HCPCS: 36415; 36600; 71010-TC; 73718-TC; 74183-TC; 80048; 80053; 80076; 81003; 81015; 82009; 82150; 82550; 82803; 83036; 83605; 83690; 83735; 84100; 84484; 85025; 85027; 85610; 85730; 87040; 87070; 87077; 87186; 87205; 93005; 93010; 93975; 97116-GP; 97162; 99285-25; G0480; J1644

== ENCOUNTER 2017-08-13 10:04 | Inpatient (IN) | payer OTHER ==
[2017-08-13 11:06] VITALS: BMI 26.6
--- NOTE | 2017-08-13 14:08 | HP ---
CIWA Score - CIWA Score Nausea/Vomitin-No Nausea/No Vomiting Muscle Tremors: 4-Moderate,w/Arms Extend Anxiety: 3 Agitation: 4-Moderately Restless Paroxysmal Sweats: 3 Orientation: 0-Oriented Tacttile Disturbances: 0-None Auditory Disturbances: 0-None Visual Disturbances: 0-None Headache: 1-Very Mild CIWA-Ar Total Score: 15 Admission ROS [facility] - HPI Chief Complaint: It my birthday today and I need to get my life back. Allergies/Adverse Reactions: Allergies Allergy/AdvReac Type Severity Reaction Status Date / Time shellfish derived Allergy Severe Hives Verified 08/13/17 11:15 strawberry Allergy Severe Hives Verified 08/13/17 11:15 No Known Drug Allergies Allergy Verified 08/13/17 11:15 History of Present Illness: pt is a 47yr female with a history of alcohol dependence seeking detox for treatment. Exam Limitations: No Limitations - Ebola screening Have you traveled outside of the country in the last 21 days: No Have you had contact with anyone from an Ebola affected area: No Have you been sick,other than usual withdrawal symptoms: No Do you have a fever: No - Review of Systems Constitutional: Diaphoresis, Loss of Appetite, Night Sweats, Changes in sleep, Weight Stable EENT: reports: Tearing, Nose Congestion Respiratory: reports: No Symptoms reported Cardiac: reports: No Symptoms Reported GI: reports: Diarrhea, Poor Appetite, Poor Fluid Intake : reports: No Symptoms Reported Musculoskeletal: reports: Back Pain, Joint Pain Integumentary: reports: Flushing, Sweating Endocrine: reports: Excessive Sweating, Flushing, Intolerance to Cold, Intolerance to Heat Hematology: reports: No Symptoms Reported Psychiatric: reports: Judgement Intact, Mood/Affect Appropiate, Orientated x3, Agitated, Anxious Other Systems: Reviewed and Negative Patient History - Patient Medical History Hx Anemia: No Hx Asthma: No Hx Chronic Obstructive Pulmonary Disease (COPD): No Hx Cancer: No Hx Cardiac Disorders: No Hx Congestive Heart Failure: No Hx Hypertension: Yes Hx Hypercholesterolemia: No Hx Pacemaker: No HX Cerebrovascular Accident: No Hx Seizures: No Hx Dementia: No Hx Diabetes: Yes (last glucose 450) Hx Gastrointestinal Disorders: No Hx Liver Disease: No Hx Genitourinary Disorders: No Hx Sexually Transmitted Disorders: No Hx Renal Disease (ESRD): No Hx Thyroid Disease: No Hx Human Immunodeficiency Virus (HIV): No (NEGATIVE HX) Hx Hepatitis C: No (NEGATIVE ) Hx Suicide Attempt: No (denies) Hx Bipolar Disorder: No Hx Schizophrenia: No Other Medical History: insomnia/anxiety - Patient Surgical History Past Surgical History: Yes Hx Neurologic Surgery: No Hx Cataract Extraction: No Hx Cardiac Surgery: No Hx Lung Surgery: No Hx Breast Surgery: No Hx Breast Biopsy: No Hx Abdominal Surgery: Yes (TUBAL LIGATION IN 2005) Hx Appendectomy: No Hx Cholecystectomy: No Hx Genitourinary Surgery: No Hx Section: No Hx Orthopedic Surgery: Yes (neck, 11/30/2015 (fall);SX COCYX DUE TO OSTEOMYLITIS - 2010) Other Surgical History: tubal ligation in 2005 Anesthesia Reaction: No - PPD History Previous Implant?: Yes Documented Results: Negative w/proof Implanted On Prior [facility] Admission?: Yes Date: 09/21/16 Results: 0 mm PPD to be Administered?: No - Reproductive History Patient is a Female of Child Bearing Age (11 -55 yrs old): Yes Last Menstrual Period: 08/13/17 Patient : No - Smoking Cessation Smoking history: Never smoked Have you smoked in the past 12 months: No Aproximately how many cigarettes per day: 0 Cigars Per Day: 0 Hx Chewing Tobacco Use: No Initiated information on smoking cessation: No - Substance & Tx. History Hx Alcohol Use: Yes Hx Substance Use: Yes Substance Use Type: Alcohol, Cocaine Hx Substance Use Treatment: Yes (last detox 05/2017 [facility]) - Substances Abused Alcohol Route: Oral Frequency: Daily Amount used: vodka(1 pint) Age of first use: 45 Date of Last Use: 08/12/17 Crack Route: Smoking Frequency: 1-2 times per week Amount used: $10 Age of first use: 46 Date of Last Use: 08/11/17 Family Disease History - Family Disease History Family Disease History: Diabetes: Grandparent (alcohol), Father (alive: 68: HTN) , Mother (alive: 67), Other: Grandparent, Father, Mother Admission Physical Exam [facility] - Vital Signs Vital Signs: Vital Signs - 24 hr 08/13/17 11:03 Temperature 97.6 F Pulse Rate 110 H Respiratory 20 Rate Blood Pressure 164/89 - Physical General Appearance: Yes: Appropriately Dressed, Moderate Distress, Tremorous, Irritable, Sweating, Anxious HEENTM: Yes: Hearing grossly Normal, Normal Voice Respiratory: Yes: Lungs Clear, Normal Breath Sounds, No Respiratory Distress Neck: Yes: No masses,lesions,Nodules Breast: Yes: Within Normal Limits Cardiology: Yes: Regular Rhythm, Regular Rate, S1, S2 Abdominal: Yes: Normal Bowel Sounds, Non Tender, Soft Genitourinary: Yes: Within Normal Limits Back: Yes: Normal Inspection Musculoskeletal: Yes: full range of Motion Extremities: Yes: Normal Capillary Refill, Non-Tender, Tremors 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: Yes: Fully Oriented, Alert, Normal Response Integumentary: Yes: Normal Color, Diaphoresis Lymphatic: Yes: Within Normal Limits - Diagnostic (1) Cocaine dependence Current Visit: Yes Status: Chronic Qualifiers: Substance use status: uncomplicated Qualified Code(s): F14.20 - Cocaine dependence, uncomplicated (2) GERD (gastroesophageal reflux disease) Current Visit: Yes Status: Chronic Qualifiers: Esophagitis presence: without esophagitis (3) Hypertension Current Visit: Yes Status: Chronic Qualifiers: Hypertension type: essential hypertension (4) Insulin dependent diabetes mellitus Current Visit: Yes Status: Chronic Cleared for Admission [facility] - Detox or Rehab [facility] Level of Care: Medically Managed Detox Regimen/Protocol: Librium [facility] Breath Alcohol Content Breath Alcohol Content: 0.029 Urine Pregancy Test - Result Urine Test Results: Negative- NO Line Present Urine Drug Screen - Results Drug Screen Negative: No Urine Drug Screen Results: DEEPAK-Cocaine
[2017-08-13] MEDS ORDERED: MENTHOL/PHENOL 1 EACH UD MM PRN (14:09)
[2017-08-13] MEDS ORDERED: P-EPHED 60MG/TRIPROLIDI 2.5MG TABLET PO PRN (14:09)
[2017-08-13] MEDS ORDERED: diphenhydrAMINE HCL 50 MG CAPSULE PO PRN ×2 (14:09→14:25)
[2017-08-13] MEDS ORDERED: MAGNESIUM HYDROX 2400MG/30ML ORAL SUSPENSION 30 ML CUP PO PRN (14:09)
[2017-08-13] MEDS ORDERED: guaiFENesin/D-METHORPHAN HB 10 ML UNIT-DOSE CUPS PO PRN (14:09)
[2017-08-13] MEDS ORDERED: hydrOXYzine PAMOATE 50 MG CAPSULE (FP) PO PRN (14:09)
[2017-08-13] MEDS ORDERED: MAGNESIUM CITRATE 300 ML BOTTLE PO PRN (14:09)
[2017-08-13] MEDS ORDERED: chlordiazePOXIDE HCL 25 MG CAPSULE PO PRN (14:09)
[2017-08-13] MEDS ORDERED: MAG HYDROX/AL HYDROX/SIMETH 30 ML UNIT-DOSE CUP PO PRN (14:09)
[2017-08-13] MEDS ORDERED: COLLOIDAL OATMEAL 1 BAR EACH TP PRN (14:25)
[2017-08-13] MEDS ORDERED: chlordiazePOXIDE HCL 25 MG CAPSULE PO ONE (14:54)
--- NOTE | 2017-08-13 16:54 | CONSULT ---
[facility] Psychiatric Consult - Data Date of interview: 08/13/17 Admission source: [facility] Identifying data: One of multiple admissions to [facility] for this 47 y/o female seeking detox treatment on for alcohol and cocaine ( crack) dependence.Patient is single,a mother of six,homeless,unemployed, disabled and supported on [facility] benefits. Substance Abuse History: Discussed in this session with patient.She confirms this report. Smoking Cessation. Smoking history: Never smoked. Have you smoked in the past 12 months: No. Aproximately how many cigarettes per day: 0. Cigars Per Day: 0. Hx Chewing Tobacco Use: No. Initiated information on smoking cessation: No. - Substance & Tx. History. Hx Alcohol Use: Yes. Hx Substance Use: Yes. Substance Use Type: Alcohol, Cocaine. Hx Substance Use Treatment: Yes (last detox 05/2017 [facility] [place]). - Substances Abused. Alcohol. Route: Oral. Frequency: Daily. Amount used: vodka(1 pint). Age of first use: 45. Date of Last Use: 08/12/17. Crack. Route: Smoking. Frequency: 1-2 times per week. Amount used: $10. Age of first use: 46. Date of Last Use: 08/11/17 Medical History: No changes in medical profile since most recent encounter with this policy writer : hypertension,diabetes mellitus-type I,GERD,cirrhosis of the liver, peripheral neuropathy,osteomyelitis and tubal ligation (2005).Additional history of orthosurgery for fracture of neck from a fall (2014) and coccyx due to osteomyelitis (2010). Psychiatric History: Diagnosed with MDD and insomnia.Prescribed trazodone 150 mg /hs + and mirtazapine 30 mg/hs (self-report).Known history of sleep disorder ( managed in 2004 at a center for sleep disorders in [place]).Ms Corral was Hospitalized at [facility] (2016).Precipitant : of her common- law on October.She admits to chronic non-adherence to OPD care.Patient denies history of suicide attempts. Physical/Sexual Abuse/Trauma History: Patient denies history of abuse. Additional Comment: Urine Drug Screen Results: DEEPAK-Cocaine.Noted. Mental Status Exam - Mental Status Exam Alert and Oriented to: Time, Place, Person Cognitive Function: Good Patient Appearance: Well Groomed Mood: Withdrawn, Hopeful Affect: Appropriate, Constricted (mildly constricted) Patient Behavior: Fatigued, Appropriate (well mannered), Cooperative Speech Pattern: Clear, Appropriate Voice Loudness: Normal Thought Process: Intact, Goal Oriented Thought Disorder: Not Present Hallucinations: Denies Suicidal Ideation: Denies Homicidal Ideation: Denies Insight/Judgement: Fair Sleep: Poorly, Difficulty falling asleep Appetite: Poor Muscle strength/Tone: Normal Gait/Station: Normal Psychiatric Findings - Problem List ([place] 1, 2,3) (1) Depressive disorder Current Visit: Yes Status: Chronic (2) Alcohol dependence with uncomplicated withdrawal Current Visit: Yes Status: Chronic (3) Cocaine dependence Current Visit: Yes Status: Acute Qualifiers: Substance use status: uncomplicated Qualified Code(s): F14.20 - Cocaine dependence, uncomplicated (4) Substance induced mood disorder Current Visit: Yes Status: Acute (5) GERD (gastroesophageal reflux disease) Current Visit: Yes Status: Chronic Qualifiers: Esophagitis presence: without esophagitis Qualified Code(s): K21.9 - Gastro-esophageal reflux disease without esophagitis (6) Hypertension Current Visit: Yes Status: Chronic Qualifiers: Hypertension type: essential hypertension Qualified Code(s): I10 - Essential (primary) hypertension (7) Insulin dependent diabetes mellitus Current Visit: Yes Status: Chronic (8) Peripheral neuropathy Current Visit: No Status: Chronic Qualifiers: Peripheral neuropathy type: polyneuropathy, alcohol-induced Qualified Code(s): G62.1 - Alcoholic polyneuropathy (9) Insomnia Current Visit: Yes Status: Acute (10) Non compliance w medication regimen Current Visit: Yes Status: Chronic - Initial Treatment Plan Initial Treatment Plan: Psychoeducation initiated in this session.Detoxification is under way.Support and encouragement provided.Recent pharmacy claims are revisited : last script for trazodone 200 mg/hs was issued by Dr Kumar (04/09/17) at [place] [facility] + remeron 15 mg/hs from another provider (06/25/17) at [facility] # [id number].Clearly not consistent with a regular adherence to OPD care.Will initiate treatment with remeron 15 mg po hs.Observe response for 24-48 hours.Recommend psychiatric follow up for determination of necessity for an SSRI agent (depending on patient's consent).Ms Corral indicates her inclination for rehabilitation treatment at the completion of this detox protocol.Monitor progress.
[2017-08-13 17:03] LABS: MCH 28.4 pg (25.7-33.7); MCHC 33.4 g/dl (32.0-36.0); MEAN CELL VOLUME 84.9 fl (80-96); MEAN PLT VOLUME 8.7 fl (7.5-11.1); PLATELET COUNT 211 K/MM3 (134-434); RDW 16.2 % (11.6-15.6); WHITE BLOOD COUNT 4.6 K/mm3 (4.0-10.0)
[2017-08-13 17:09] LABS: URINE APPEARANCE SLCLOUDY; URINE BILIRUBIN NEGATIVE (NEGATIVE); URINE BLOOD 3+ (NEGATIVE); URINE COLOR RED; URINE GLUCOSE (UA) 3+ (NEGATIVE); URINE KETONE TRACE (NEGATIVE); URINE LEUK ESTERASE NEGATIVE (NEGATIVE); URINE NITRITE NEGATIVE (NEGATIVE); URINE UROBILINOGEN NEGATIVE mg/dL (0.2-1.0)
[2017-08-13 17:16] LABS: URINE PROTEIN 2+ (NEGATIVE)
[2017-08-13 17:23] LABS: URINE MUCUS RARE; URINE RBC 391 /hpf (0-3); URINE WBC 565 /hpf (3-5)
[2017-08-13 17:24] LABS: ANION GAP 15 (8-16); BILIRUBIN,TOTAL 0.6 mg/dL (0.2-1.0); CALCIUM 8.8 mg/dL (8.5-10.1); CO2 19 mmol/L (21-32); CREATININE 0.9 mg/dL (0.55-1.02); SGOT/AST 53 U/L (15-37); SGPT/ALT 66 U/L (12-78); TOT PROT 8.1 g/dl (6.4-8.2)
[2017-08-13 17:27] LABS: ALK PHOS 242 U/L (45-117)
[2017-08-13] MEDS ORDERED: INSULIN (NOVOLOG) ASPART 100 UNITS/ML 10ML VIAL SQ ONE (17:30)
[2017-08-13] MEDS: chlordiazePOXIDE HCL 25 MG CAPSULE PO SCH ×2 (17:33→22:59)
[2017-08-13] MEDS: LOPERAMIDE HCL 2 MG CAPSULE PO PRN (17:37)
[2017-08-13 17:58] LABS: GLUCOSE,RANDOM 555 mg/dL (74-106)
[2017-08-13] MEDS ORDERED: INSULIN (NOVOLOG) ASPART 100 UNITS/ML 10ML VIAL ONE (21:35)
[2017-08-13] MEDS: RANITIDINE HCL 150 MG TABLET (FP) PO SCH (21:37)
[2017-08-13] MEDS: MIRTAZAPINE 15 MG TABLET (FP) PO SCH (21:37)
[2017-08-13] MEDS: INSULIN DETEMIR 100 UNITS/ML MDV SQ SCH (21:40)
[2017-08-13] MEDS ORDERED: INSULIN SLIDING SCALE (NOVOLOG) 1 VIAL SQ SCH ×2 (22:00)
[2017-08-13] MEDS: THIAMINE HCL 100 MG TABLET (FP) PO SCH (22:58)
[2017-08-14] MEDS: chlordiazePOXIDE HCL 25 MG CAPSULE PO SCH ×4 (06:10→22:38)
[2017-08-14] MEDS ORDERED: INSULIN (NOVOLOG) ASPART 100 UNITS/ML 10ML VIAL ONE ×5 (08:01→21:53)
[2017-08-14] MEDS: ACETAMINOPHEN 325 MG TABLET (FP) PO PRN (10:40)
[2017-08-14] MEDS: LISINOPRIL 20 MG TABLET (FP) PO SCH (10:40)
[2017-08-14] MEDS: RANITIDINE HCL 150 MG TABLET (FP) PO SCH ×2 (10:40→21:49)
[2017-08-14] MEDS: PRENATAL VITAMINS W/ FOLIC ACID TABLET (FP) PO SCH (10:40)
--- NOTE | 2017-08-14 11:22 | PN ---
S CIWA - CIWA Score Nausea/Vomitin-No Nausea/No Vomiting Muscle Tremors: 4-Moderate,w/Arms Extend Anxiety: 4-Mod. Anxious/Guarded Agitation: 4-Moderately Restless Paroxysmal Sweats: 3 Orientation: 0-Oriented Tacttile Disturbances: 0-None Auditory Disturbances: 0-None Visual Disturbances: 0-None Headache: 1-Very Mild CIWA-Ar Total Score: 16 BHS Progress Note (SOAP) Subjective: irritable agitation anxiety sweats shakes body aches Objective: 08/14/17 11:21 Vital Signs Temperature 97.9 F 08/14/17 10:05 Pulse Rate 104 H 08/14/17 10:05 Respiratory Rate 18 08/14/17 10:05 Blood Pressure 145/76 08/14/17 10:05 O2 Sat by Pulse Oximetry (%) Laboratory Tests 08/13/17 08/13/17 08/13/17 12:04 14:00 14:00 WBC 4.6 RBC 4.66 Hgb 13.2 Hct 39.6 MCV 84.9 MCH 28.4 MCHC 33.4 RDW 16.2 H Plt Count 211 MPV 8.7 Sodium 132 L Potassium 4.1 Chloride 98 Carbon Dioxide 19 L D Anion Gap 15 BUN 11 D Creatinine 0.9 Creat Clearance w eGFR > 60 POC Glucometer 488 Random Glucose 555 H* D Calcium 8.8 Total Bilirubin 0.6 D AST 53 H D ALT 66 Alkaline Phosphatase 242 H Total Protein 8.1 Albumin 3.0 L Urine Color Urine Appearance Urine pH Ur Specific [place] Urine Protein Urine Glucose (UA) Urine Ketones Urine Blood Urine Nitrite Urine Bilirubin Urine Urobilinogen Urine RBC Urine WBC Ur Epithelial Cells Urine Mucus RPR Titer 08/13/17 08/13/17 08/13/17 14:00 15:00 16:44 WBC RBC Hgb Hct MCV MCH MCHC RDW Plt Count MPV Sodium Potassium Chloride Carbon Dioxide Anion Gap BUN Creatinine Creat Clearance w eGFR POC Glucometer 547 Random Glucose Calcium Total Bilirubin AST ALT Alkaline Phosphatase Total Protein Albumin Urine Color Red Urine Appearance Slcloudy Urine pH 6.0 Ur Specific [place] <= 1.005 Urine Protein 2+ H Urine Glucose (UA) 3+ H Urine Ketones Trace H Urine Blood 3+ H Urine Nitrite Negative Urine Bilirubin Negative Urine Urobilinogen Negative Urine RBC 391 Urine WBC 565 Ur Epithelial Cells Rare Urine Mucus Rare RPR Titer Nonreactive 08/13/17 08/14/17 21:22 06:10 WBC RBC Hgb Hct MCV MCH MCHC RDW Plt Count MPV Sodium Potassium Chloride Carbon Dioxide Anion Gap BUN Creatinine Creat Clearance w eGFR POC Glucometer 516 278 Random Glucose Calcium Total Bilirubin AST ALT Alkaline Phosphatase Total Protein Albumin Urine Color Urine Appearance Urine pH Ur Specific [place] Urine Protein Urine Glucose (UA) Urine Ketones Urine Blood Urine Nitrite Urine Bilirubin Urine Urobilinogen Urine RBC Urine WBC Ur Epithelial Cells Urine Mucus RPR Titer awake/alert ambulating no acute distress Assessment: 08/14/17 11:22 withdrawal sx Plan: continue detox increase fluids
[2017-08-14] MEDS: INSULIN SLIDING SCALE (NOVOLOG) 1 VIAL SQ SCH ×3 (12:50→21:56)
--- NOTE | 2017-08-14 13:23 | EKG ---
Test Reason : Blood Pressure : / mmHG Vent. Rate : 095 BPM Atrial Rate : 095 BPM P-R Int : 134 ms QRS Dur : 078 ms QT Int : 394 ms P-R-T Axes : 061 032 054 degrees QTc Int : 495 ms NORMAL SINUS RHYTHM PROLONGED QT ABNORMAL ECG WHEN COMPARED WITH ECG OF 13-AUG-2017 14:48, SINUS RHYTHM HAS REPLACED ATRIAL FLUTTER Confirmed by KIM BLAIR, OCTAVIO (2013) on 08/14/2017 1:23:27 PM Referred By: Mohsen Lima Confirmed By:OCTAVIO ALVAREZ MD
--- NOTE | 2017-08-14 13:27 | EKG ---
Test Reason : Blood Pressure : / mmHG Vent. Rate : 107 BPM Atrial Rate : 214 BPM P-R Int : 000 ms QRS Dur : 080 ms QT Int : 392 ms P-R-T Axes : 259 027 051 degrees QTc Int : 523 ms UNUSUAL P AXIS, POSSIBLE ECTOPIC ATRIAL TACHYCARDIA MINIMAL VOLTAGE CRITERIA FOR LVH, MAY BE NORMAL VARIANT PROLONGED QT ABNORMAL ECG Confirmed by KIM BLAIR, OCTAVIO (2013) on 08/14/2017 1:27:12 PM Referred By: Mohsen Lima Confirmed By:OCTAVIO ALVAREZ MD
[2017-08-14] MEDS: INSULIN DETEMIR 100 UNITS/ML MDV SQ SCH (21:49)
[2017-08-14] MEDS: MIRTAZAPINE 15 MG TABLET (FP) PO SCH (21:49)
[2017-08-14] MEDS: THIAMINE HCL 100 MG TABLET (FP) PO SCH (21:57)
[2017-08-15] MEDS: chlordiazePOXIDE HCL 25 MG CAPSULE PO SCH ×2 (05:55→11:21)
[2017-08-15] MEDS: IBUPROFEN 400 MG TABLET (FP) PO PRN ×2 (05:56→22:11)
[2017-08-15] MEDS ORDERED: INSULIN (NOVOLOG) ASPART 100 UNITS/ML 10ML VIAL ONE ×3 (06:59→22:05)
[2017-08-15] MEDS: INSULIN SLIDING SCALE (NOVOLOG) 1 VIAL SQ SCH ×4 (07:35→22:14)
[2017-08-15] MEDS: PRENATAL VITAMINS W/ FOLIC ACID TABLET (FP) PO SCH (11:21)
[2017-08-15] MEDS: RANITIDINE HCL 150 MG TABLET (FP) PO SCH ×2 (11:22→22:10)
[2017-08-15] MEDS: LISINOPRIL 20 MG TABLET (FP) PO SCH (11:22)
--- NOTE | 2017-08-15 12:04 | PN ---
S CIWA - CIWA Score Nausea/Vomitin-No Nausea/No Vomiting Muscle Tremors: 4-Moderate,w/Arms Extend Anxiety: 3 Agitation: 4-Moderately Restless Paroxysmal Sweats: 3 Orientation: 0-Oriented Tacttile Disturbances: 0-None Auditory Disturbances: 0-None Visual Disturbances: 0-None Headache: 0-None Present CIWA-Ar Total Score: 14 BHS Progress Note (SOAP) Subjective: muscle spasms sweats mild shakes tired interrupted sleep Objective: 08/15/17 12:05 Vital Signs Temperature 98.4 F 08/15/17 09:42 Pulse Rate 112 H 08/15/17 09:42 Respiratory Rate 18 08/15/17 09:42 Blood Pressure 131/84 08/15/17 09:42 O2 Sat by Pulse Oximetry (%) Laboratory Tests 08/13/17 08/13/17 08/13/17 12:04 14:00 14:00 WBC 4.6 RBC 4.66 Hgb 13.2 Hct 39.6 MCV 84.9 MCH 28.4 MCHC 33.4 RDW 16.2 H Plt Count 211 MPV 8.7 Sodium 132 L Potassium 4.1 Chloride 98 Carbon Dioxide 19 L D Anion Gap 15 BUN 11 D Creatinine 0.9 Creat Clearance w eGFR > 60 POC Glucometer 488 Random Glucose 555 H* D Calcium 8.8 Total Bilirubin 0.6 D AST 53 H D ALT 66 Alkaline Phosphatase 242 H Total Protein 8.1 Albumin 3.0 L Urine Color Urine Appearance Urine pH Ur Specific [place] Urine Protein Urine Glucose (UA) Urine Ketones Urine Blood Urine Nitrite Urine Bilirubin Urine Urobilinogen Urine RBC Urine WBC Ur Epithelial Cells Urine Mucus RPR Titer 08/13/17 08/13/17 08/13/17 14:00 15:00 16:44 WBC RBC Hgb Hct MCV MCH MCHC RDW Plt Count MPV Sodium Potassium Chloride Carbon Dioxide Anion Gap BUN Creatinine Creat Clearance w eGFR POC Glucometer 547 Random Glucose Calcium Total Bilirubin AST ALT Alkaline Phosphatase Total Protein Albumin Urine Color Red Urine Appearance Slcloudy Urine pH 6.0 Ur Specific [place] <= 1.005 Urine Protein 2+ H Urine Glucose (UA) 3+ H Urine Ketones Trace H Urine Blood 3+ H Urine Nitrite Negative Urine Bilirubin Negative Urine Urobilinogen Negative Urine RBC 391 Urine WBC 565 Ur Epithelial Cells Rare Urine Mucus Rare RPR Titer Nonreactive 08/13/17 08/14/17 08/14/17 21:22 06:10 11:59 WBC RBC Hgb Hct MCV MCH MCHC RDW Plt Count MPV Sodium Potassium Chloride Carbon Dioxide Anion Gap BUN Creatinine Creat Clearance w eGFR POC Glucometer 516 278 481 Random Glucose Calcium Total Bilirubin AST ALT Alkaline Phosphatase Total Protein Albumin Urine Color Urine Appearance Urine pH Ur Specific [place] Urine Protein Urine Glucose (UA) Urine Ketones Urine Blood Urine Nitrite Urine Bilirubin Urine Urobilinogen Urine RBC Urine WBC Ur Epithelial Cells Urine Mucus RPR Titer 08/14/17 08/14/17 08/15/17 16:41 21:46 05:54 WBC RBC Hgb Hct MCV MCH MCHC RDW Plt Count MPV Sodium Potassium Chloride Carbon Dioxide Anion Gap BUN Creatinine Creat Clearance w eGFR POC Glucometer 505 538 426 Random Glucose Calcium Total Bilirubin AST ALT Alkaline Phosphatase Total Protein Albumin Urine Color Urine Appearance Urine pH Ur Specific [place] Urine Protein Urine Glucose (UA) Urine Ketones Urine Blood Urine Nitrite Urine Bilirubin Urine Urobilinogen Urine RBC Urine WBC Ur Epithelial Cells Urine Mucus RPR Titer AAOx3 ambulating no acute distress continue to monitor glucose and administer insulin as ordered Assessment: 08/15/17 12:06 withdrawal sx Plan: continue detox increase water intake flexiril 10mg prn
--- NOTE | 2017-08-15 13:16 | PN ---
[facility] Progress Note Note: pt is very argumentative regarding the meals she is receiving. pt was educated on the menu and her choice of foods she can pick from. pt was also told that she gets glucerna three x a day. pt was educated on the finger checks for her glucose and the importance of compliance during her stay so nursing can provide the medication as ordered for glucose levels. pt encouraged to follow unit rules and to get up for vitals and medication when asked. a collaborating team of nursing, counselor and medical staff spoke with patient and re-iterated the importance of her purpose for her being here so we can continue to provide the treatment she asked for.
[2017-08-15] MEDS ORDERED: LISINOPRIL 20 MG TABLET (FP) PO ONE (13:30)
[2017-08-15] MEDS: chlordiazePOXIDE 5 MG CAPSULE PO SCH ×2 (17:22→22:10)
[2017-08-15] MEDS: MIRTAZAPINE 15 MG TABLET (FP) PO SCH (22:10)
[2017-08-15] MEDS: CYCLOBENZAPRINE HCL 10 MG TABLET (FP) PO PRN (22:10)
[2017-08-15] MEDS: THIAMINE HCL 100 MG TABLET (FP) PO SCH (22:11)
[2017-08-15] MEDS: INSULIN DETEMIR 100 UNITS/ML MDV SQ SCH (22:14)
[2017-08-15] MEDS: LOPERAMIDE HCL 2 MG CAPSULE PO PRN (22:14)
[2017-08-16] MEDS: chlordiazePOXIDE 5 MG CAPSULE PO SCH ×2 (06:04→10:56)
[2017-08-16] MEDS ORDERED: INSULIN (NOVOLOG) ASPART 100 UNITS/ML 10ML VIAL ONE ×3 (07:53→17:52)
[2017-08-16] MEDS: INSULIN SLIDING SCALE (NOVOLOG) 1 VIAL SQ SCH ×4 (07:56→23:46)
[2017-08-16] MEDS: LISINOPRIL 20 MG TABLET (FP) PO SCH (10:56)
[2017-08-16] MEDS: RANITIDINE HCL 150 MG TABLET (FP) PO SCH ×2 (10:56→22:26)
[2017-08-16] MEDS: PRENATAL VITAMINS W/ FOLIC ACID TABLET (FP) PO SCH (10:56)
--- NOTE | 2017-08-16 13:18 | PN ---
[facility] Progress Note (SOAP) Subjective: sweats, shakes, abdominal discomfort, sleep interruption Objective: 08/16/17 13:17 Vital Signs - 8 hr 08/16/17 08/16/17 06:51 11:04 Temperature 97.5 F L Pulse Rate 102 H Respiratory 18 16 Rate Blood Pressure 105/75 Laboratory Last Values WBC 4.6 K/mm3 (4.0-10.0) 08/13/17 14:00 RBC 4.66 M/mm3 (3.60-5.2) 08/13/17 14:00 Hgb 13.2 GM/dL (10.7-15.3) 08/13/17 14:00 Hct 39.6 % (32.4-45.2) 08/13/17 14:00 MCV 84.9 fl (80-96) 08/13/17 14:00 MCH 28.4 pg (25.7-33.7) 08/13/17 14:00 MCHC 33.4 g/dl (32.0-36.0) 08/13/17 14:00 RDW 16.2 % (11.6-15.6) H 08/13/17 14:00 Plt Count 211 K/MM3 (134-434) 08/13/17 14:00 MPV 8.7 fl (7.5-11.1) 08/13/17 14:00 Sodium 132 mmol/L (136-145) L 08/13/17 14:00 Potassium 4.1 mmol/L (3.5-5.1) 08/13/17 14:00 Chloride 98 mmol/L (98-107) 08/13/17 14:00 Carbon Dioxide 19 mmol/L (21-32) L D 08/13/17 14:00 Anion Gap 15 (8-16) 08/13/17 14:00 BUN 11 mg/dL (7-18) D 08/13/17 14:00 Creatinine 0.9 mg/dL (0.55-1.02) 08/13/17 14:00 Creat Clearance w eGFR > 60 (>60) 08/13/17 14:00 POC Glucometer 469 UNITS (()) 08/16/17 10:59 Random Glucose 555 mg/dL (74-106) H* D 08/13/17 14:00 Calcium 8.8 mg/dL (8.5-10.1) 08/13/17 14:00 Total Bilirubin 0.6 mg/dL (0.2-1.0) D 08/13/17 14:00 AST 53 U/L (15-37) H D 08/13/17 14:00 ALT 66 U/L (12-78) 08/13/17 14:00 Alkaline Phosphatase 242 U/L (45-117) H 08/13/17 14:00 Total Protein 8.1 g/dl (6.4-8.2) 08/13/17 14:00 Albumin 3.0 g/dl (3.4-5.0) L 08/13/17 14:00 Urine Color Red 08/13/17 15:00 Urine Appearance Slcloudy 08/13/17 15:00 Urine pH 6.0 (5.0-8.0) 08/13/17 15:00 Ur Specific [place] <= 1.005 (1.005-1.025) 08/13/17 15:00 Urine Protein 2+ (NEGATIVE) H 08/13/17 15:00 Urine Glucose (UA) 3+ (NEGATIVE) H 08/13/17 15:00 Urine Ketones Trace (NEGATIVE) H 08/13/17 15:00 Urine Blood 3+ (NEGATIVE) H 08/13/17 15:00 Urine Nitrite Negative (NEGATIVE) 08/13/17 15:00 Urine Bilirubin Negative (NEGATIVE) 08/13/17 15:00 Urine Urobilinogen Negative mg/dL (0.2-1.0) 08/13/17 15:00 Urine RBC 391 /hpf (0-3) 08/13/17 15:00 Urine WBC 565 /hpf (3-5) 08/13/17 15:00 Ur Epithelial Cells Rare /hpf (FEW) 08/13/17 15:00 Urine Mucus Rare 08/13/17 15:00 RPR Titer Nonreactive (NONREACTIVE) 08/13/17 14:00 labs noted Assessment: 08/16/17 13:17 withdrawal sx Plan: continue detox
[2017-08-16] MEDS: chlordiazePOXIDE HCL 10 MG CAPSULE PO SCH ×2 (18:04→22:26)
[2017-08-16] MEDS: ACETAMINOPHEN 325 MG TABLET (FP) PO PRN (18:05)
[2017-08-16] MEDS: MIRTAZAPINE 15 MG TABLET (FP) PO SCH (22:26)
[2017-08-16] MEDS: THIAMINE HCL 100 MG TABLET (FP) PO SCH (22:26)
[2017-08-16] MEDS: CYCLOBENZAPRINE HCL 10 MG TABLET (FP) PO PRN (22:26)
[2017-08-16] MEDS: INSULIN DETEMIR 100 UNITS/ML MDV SQ SCH (22:26)
[2017-08-17] MEDS: chlordiazePOXIDE HCL 10 MG CAPSULE PO SCH ×2 (05:52→10:38)
[2017-08-17] MEDS: INSULIN SLIDING SCALE (NOVOLOG) 1 VIAL SQ SCH ×4 (06:13→23:05)
[2017-08-17] MEDS: RANITIDINE HCL 150 MG TABLET (FP) PO SCH ×2 (10:38→23:05)
[2017-08-17] MEDS: PRENATAL VITAMINS W/ FOLIC ACID TABLET (FP) PO SCH (10:38)
[2017-08-17] MEDS: LISINOPRIL 20 MG TABLET (FP) PO SCH (10:38)
[2017-08-17] MEDS: IBUPROFEN 400 MG TABLET (FP) PO PRN (10:39)
[2017-08-17] MEDS ORDERED: INSULIN (NOVOLOG) ASPART 100 UNITS/ML 10ML VIAL ONE (11:31)
--- NOTE | 2017-08-17 11:40 | DS ---
[facility] Detox Discharge Summary Admission Date: 08/13/17 Discharge Date: 08/17/17 - History Present History: Alcohol Dependence, Cocaine Dependence Pertinent Past History: HTN DM GERD - Physical Exam Results Vital Signs: Vital Signs Temperature 96.5 F L 08/17/17 10:29 Pulse Rate 125 H 08/17/17 10:29 Respiratory Rate 18 08/17/17 10:29 Blood Pressure 136/97 08/17/17 10:29 O2 Sat by Pulse Oximetry (%) Pertinent Admission Physical Exam Findings: Withdrawal sx. Laboratory Last Values WBC 4.6 K/mm3 (4.0-10.0) 08/13/17 14:00 RBC 4.66 M/mm3 (3.60-5.2) 08/13/17 14:00 Hgb 13.2 GM/dL (10.7-15.3) 08/13/17 14:00 Hct 39.6 % (32.4-45.2) 08/13/17 14:00 MCV 84.9 fl (80-96) 08/13/17 14:00 MCH 28.4 pg (25.7-33.7) 08/13/17 14:00 MCHC 33.4 g/dl (32.0-36.0) 08/13/17 14:00 RDW 16.2 % (11.6-15.6) H 08/13/17 14:00 Plt Count 211 K/MM3 (134-434) 08/13/17 14:00 MPV 8.7 fl (7.5-11.1) 08/13/17 14:00 Sodium 132 mmol/L (136-145) L 08/13/17 14:00 Potassium 4.1 mmol/L (3.5-5.1) 08/13/17 14:00 Chloride 98 mmol/L (98-107) 08/13/17 14:00 Carbon Dioxide 19 mmol/L (21-32) L D 08/13/17 14:00 Anion Gap 15 (8-16) 08/13/17 14:00 BUN 11 mg/dL (7-18) D 08/13/17 14:00 Creatinine 0.9 mg/dL (0.55-1.02) 08/13/17 14:00 Creat Clearance w eGFR > 60 (>60) 08/13/17 14:00 POC Glucometer 553 UNITS (()) 08/17/17 11:06 Random Glucose 555 mg/dL (74-106) H* D 08/13/17 14:00 Calcium 8.8 mg/dL (8.5-10.1) 08/13/17 14:00 Total Bilirubin 0.6 mg/dL (0.2-1.0) D 08/13/17 14:00 AST 53 U/L (15-37) H D 08/13/17 14:00 ALT 66 U/L (12-78) 08/13/17 14:00 Alkaline Phosphatase 242 U/L (45-117) H 08/13/17 14:00 Total Protein 8.1 g/dl (6.4-8.2) 08/13/17 14:00 Albumin 3.0 g/dl (3.4-5.0) L 08/13/17 14:00 Urine Color Red 08/13/17 15:00 Urine Appearance Slcloudy 08/13/17 15:00 Urine pH 6.0 (5.0-8.0) 08/13/17 15:00 Ur Specific [place] <= 1.005 (1.005-1.025) 08/13/17 15:00 Urine Protein 2+ (NEGATIVE) H 08/13/17 15:00 Urine Glucose (UA) 3+ (NEGATIVE) H 08/13/17 15:00 Urine Ketones Trace (NEGATIVE) H 08/13/17 15:00 Urine Blood 3+ (NEGATIVE) H 08/13/17 15:00 Urine Nitrite Negative (NEGATIVE) 08/13/17 15:00 Urine Bilirubin Negative (NEGATIVE) 08/13/17 15:00 Urine Urobilinogen Negative mg/dL (0.2-1.0) 08/13/17 15:00 Urine RBC 391 /hpf (0-3) 08/13/17 15:00 Urine WBC 565 /hpf (3-5) 08/13/17 15:00 Ur Epithelial Cells Rare /hpf (FEW) 08/13/17 15:00 Urine Mucus Rare 08/13/17 15:00 RPR Titer Nonreactive (NONREACTIVE) 08/13/17 14:00 labs noted,u/a pt. was menstruating we'll repeat u/a - Treatment Hospital Course: Detox Protocol Followed, Detoxed Safely, Responded well, Discharged Condition Good, Rehab Referral Accepted Patient has Accepted a Rehab Referral to: [facility] - Medication Discharge Medications: Ambulatory Orders Insulin Sliding Scale [Novolog Vial Sliding Scale -] 0 units SQ TIDAC 05/30/16 Ibuprofen [Motrin -] 800 mg PO Q8H PRN #60 tablet 11/27/16 Lisinopril [Prinivil] 20 mg PO DAILY #30 tablet 11/27/16 Ranitidine [Zantac -] 150 mg PO BID #60 tablet 11/27/16 Gabapentin [Neurontin -] 400 mg PO TID #90 cap 04/09/17 Trazodone HCl [Desyrel -] 200 mg PO HS #30 tablet 04/09/17 Insulin (Levemir) [Levemir Flexpen -] 40 units SQ HS 04/30/17 Pregabalin [Lyrica] 150 mg PO HS 04/30/17 Thiamine HCl [B-1] 100 mg PO HS 04/30/17 - Diagnosis (1) Alcohol dependence with uncomplicated withdrawal Current Visit: Yes Status: Chronic (2) Cocaine dependence Current Visit: Yes Status: Chronic Qualifiers: Substance use status: uncomplicated Qualified Code(s): F14.20 - Cocaine dependence, uncomplicated (3) Diabetes mellitus, insulin dependent (IDDM), uncontrolled Current Visit: Yes Status: Chronic Qualifiers: Diabetes mellitus complication status: without complication (4) GERD (gastroesophageal reflux disease) Current Visit: Yes Status: Chronic Qualifiers: Esophagitis presence: without esophagitis Qualified Code(s): K21.9 - Gastro-esophageal reflux disease without esophagitis (5) Hypertension Current Visit: Yes Status: Chronic Qualifiers: Hypertension type: essential hypertension Qualified Code(s): I10 - Essential (primary) hypertension - AMA Did Patient Leave Against Medical Advice: No
--- NOTE | 2017-08-17 11:41 | HP ---
[facility]AC[facility] Rehab Assess/Revision - Admission History Admitted to Rehab from: [facility] [place] Date of Admission to Rehab: 08/17/17 - Vital signs Vital Signs: Vital Signs Period Temp Pulse Resp BP Sys/Resendez Pulse Ox Last 24 Hr 96.5 F-98.2 F 98-125 16-20 131-147/73-97 - Findings Detox History & Physical reviewed: Yes Concur with findings: Yes Inpatient Rehab Admission - Initial Determination Are CD services needed?: Yes Free of communicable disease: Yes Not in need of hospitalization: Yes - Rehab Admission Criteria Previous failed treatment: Yes Poor recovery environment: Yes Comorbidities: Yes Lacks judgement: Yes Patient is meeting Inpatient Rehab admission criteria:: Yes
[2017-08-17] MEDS: INSULIN DETEMIR 100 UNITS/ML MDV SQ SCH (23:04)
[2017-08-17] MEDS: MIRTAZAPINE 15 MG TABLET (FP) PO SCH (23:05)
[2017-08-17] MEDS: THIAMINE HCL 100 MG TABLET (FP) PO SCH (23:05)
[2017-08-18] MEDS: INSULIN SLIDING SCALE (NOVOLOG) 1 VIAL SQ SCH ×4 (07:47→21:48)
[2017-08-18] MEDS ORDERED: INSULIN (NOVOLOG) ASPART 100 UNITS/ML 10ML VIAL ONE ×4 (07:48→22:51)
--- NOTE | 2017-08-18 09:49 | HP ---
Psychiatrist Admission - Data Date of interview: 08/18/17 Admission source: [address] [place] [address] Identifying data: This is one of the multiple admissions to [address] [place] [address] for this 47 years old H female single mother of 4 grown children, resides alone,supported by SSD. Medical History: Significant for IDDM,HTN, Psychiatric History: First contact with psychiatrist was in 2003 in a Sleep disorder clinic in [place].Patient was prescribed Ambien and Trazodone but stopped after short period of time.patient detereorated after having nervious breakdown when her boyfriend from Heart attack in Oct 2015.Patient was admitted to [facility] in Dec 2015 due to severe depression,drinking, PTSD.She was placed on Remeron 15 mg po hs.Didnt follow discharge instructions. Physical/Sexual Abuse/Trauma History: denies Vital Signs: Vital Signs - 24 hr 08/17/17 08/17/17 08/18/17 10:29 13:04 00:30 Temperature 96.5 F L 97.9 F Pulse Rate 125 H 112 H Respiratory 18 18 18 Rate Blood Pressure 136/97 131/85 08/18/17 07:36 Temperature 97.5 F L Pulse Rate 97 H Respiratory 18 Rate Blood Pressure 116/77 Allergies/Adverse Reactions: Allergies Allergy/AdvReac Type Severity Reaction Status Date / Time shellfish derived Allergy Severe Hives Verified 08/18/17 23:37 No Known Drug Allergies Allergy Verified 08/18/17 23:37 [place] seeds Allergy Hives Uncoded 08/20/17 11:11 Date of last physical exam: 08/18/17 Concur with the findings of this exam: Yes - Substance Abuse/Tx History Hx Alcohol Use: Yes (reports heavy drinking since 45 yo,2 pints of vodka daily) Hx Substance Use: Yes (crack since 46 yo,$10 daily) Substance Use Type: Alcohol, Cocaine Hx Substance Use Treatment: Yes (completed this program last year,no significant clean time ) - Admission Criteria Previous failed treatment: Yes Poor recovery environment: Yes Comorbidities: Yes Lacks judgement: Yes Mental Status Exam - Mental Status Exam Alert and Oriented to: Time, Place, Person Cognitive Function: Grossly Intact Patient Appearance: Unkempt Mood: Sad Affect: Appropriate, Constricted Patient Behavior: Passive, Sedated, Fatigued, Cooperative Speech Pattern: Clear Voice Loudness: Normal Thought Process: Goal Oriented Thought Disorder: Not Present Hallucinations: Denies Suicidal Ideation: Denies Homicidal Ideation: Denies Insight/Judgement: Fair Sleep: Fair Appetite: Fair Muscle strength/Tone: Normal Gait/Station: Normal Psychiatric Findings - Problem List ([place] 1, 2,3) (1) Substance induced mood disorder Status: Chronic (2) Alcohol dependence with uncomplicated withdrawal Status: Chronic (3) Cocaine dependence Status: Chronic Qualifiers: Substance use status: uncomplicated Qualified Code(s): F14.20 - Cocaine dependence, uncomplicated (4) Diabetes mellitus, insulin dependent (IDDM), uncontrolled Status: Chronic Qualifiers: Diabetes mellitus complication status: without complication Qualified Code(s): E10.65 - Type 1 diabetes mellitus with hyperglycemia (5) GERD (gastroesophageal reflux disease) Status: Chronic Qualifiers: Esophagitis presence: without esophagitis Qualified Code(s): K21.9 - Gastro-esophageal reflux disease without esophagitis (6) Hypertension Status: Chronic Qualifiers: Hypertension type: essential hypertension Qualified Code(s): I10 - Essential (primary) hypertension (7) Liver failure Status: Chronic (8) Insulin dependent diabetes mellitus Status: Chronic (9) Non compliance w medication regimen Status: Chronic (10) Peripheral neuropathy Status: Chronic Qualifiers: Peripheral neuropathy type: polyneuropathy, alcohol-induced Qualified Code(s): G62.1 - Alcoholic polyneuropathy - Initial Treatment Plan Initial Treatment Plan: Will monitor progress.Consider antidepressants if needed.
[2017-08-18] MEDS: LISINOPRIL 20 MG TABLET (FP) PO SCH ×2 (10:29→10:50)
[2017-08-18] MEDS: RANITIDINE HCL 150 MG TABLET (FP) PO SCH ×3 (10:30→21:45)
[2017-08-18] MEDS: PRENATAL VITAMINS W/ FOLIC ACID TABLET (FP) PO SCH ×2 (10:30→10:50)
[2017-08-18] MEDS: LACTULOSE 20 GM/30 ML UDC (FOR ORAL USE ONLY) PO SCH ×3 (13:13→21:48)
--- NOTE | 2017-08-18 14:33 | PN ---
[facility] Progress Note Note: Pt. is drowsy, she wakes up when her name is called. Vital Signs 08/18/17 08/18/17 07:36 10:00 Temperature 97.5 F L 97.8 F Pulse Rate 97 H 98 H Respiratory 18 17 Rate Blood Pressure 116/77 110/78 Laboratory Last Values WBC 4.6 K/mm3 (4.0-10.0) 08/13/17 14:00 RBC 4.66 M/mm3 (3.60-5.2) 08/13/17 14:00 Hgb 13.2 GM/dL (10.7-15.3) 08/13/17 14:00 Hct 39.6 % (32.4-45.2) 08/13/17 14:00 MCV 84.9 fl (80-96) 08/13/17 14:00 MCH 28.4 pg (25.7-33.7) 08/13/17 14:00 MCHC 33.4 g/dl (32.0-36.0) 08/13/17 14:00 RDW 16.2 % (11.6-15.6) H 08/13/17 14:00 Plt Count 211 K/MM3 (134-434) 08/13/17 14:00 MPV 8.7 fl (7.5-11.1) 08/13/17 14:00 Sodium 132 mmol/L (136-145) L 08/13/17 14:00 Potassium 4.1 mmol/L (3.5-5.1) 08/13/17 14:00 Chloride 98 mmol/L (98-107) 08/13/17 14:00 Carbon Dioxide 19 mmol/L (21-32) L D 08/13/17 14:00 Anion Gap 15 (8-16) 08/13/17 14:00 BUN 11 mg/dL (7-18) D 08/13/17 14:00 Creatinine 0.9 mg/dL (0.55-1.02) 08/13/17 14:00 Creat Clearance w eGFR > 60 (>60) 08/13/17 14:00 POC Glucometer 351 UNITS (()) 08/18/17 10:50 Random Glucose 555 mg/dL (74-106) H* D 08/13/17 14:00 Calcium 8.8 mg/dL (8.5-10.1) 08/13/17 14:00 Total Bilirubin 0.6 mg/dL (0.2-1.0) D 08/13/17 14:00 AST 53 U/L (15-37) H D 08/13/17 14:00 ALT 66 U/L (12-78) 08/13/17 14:00 Alkaline Phosphatase 242 U/L (45-117) H 08/13/17 14:00 Ammonia 185.58 umol/L (11-32) H 08/18/17 07:00 Total Protein 8.1 g/dl (6.4-8.2) 08/13/17 14:00 Albumin 3.0 g/dl (3.4-5.0) L 08/13/17 14:00 Urine Color Red 08/13/17 15:00 Urine Appearance Slcloudy 08/13/17 15:00 Urine pH 6.0 (5.0-8.0) 08/13/17 15:00 Ur Specific [place] <= 1.005 (1.005-1.025) 08/13/17 15:00 Urine Protein 2+ (NEGATIVE) H 08/13/17 15:00 Urine Glucose (UA) 3+ (NEGATIVE) H 08/13/17 15:00 Urine Ketones Trace (NEGATIVE) H 08/13/17 15:00 Urine Blood 3+ (NEGATIVE) H 08/13/17 15:00 Urine Nitrite Negative (NEGATIVE) 08/13/17 15:00 Urine Bilirubin Negative (NEGATIVE) 08/13/17 15:00 Urine Urobilinogen Negative mg/dL (0.2-1.0) 08/13/17 15:00 Urine RBC 391 /hpf (0-3) 08/13/17 15:00 Urine WBC 565 /hpf (3-5) 08/13/17 15:00 Ur Epithelial Cells Rare /hpf (FEW) 08/13/17 15:00 Urine Mucus Rare 08/13/17 15:00 RPR Titer Nonreactive (NONREACTIVE) 08/13/17 14:00 labs noted Monitor closely D/C flexeril & remeron
[2017-08-18] MEDS ORDERED: INSULIN DETEMIR 100 UNITS/ML MDV SQ ONE (16:47)
[2017-08-18] MEDS: THIAMINE HCL 100 MG TABLET (FP) PO SCH (21:45)
[2017-08-18] MEDS: INSULIN DETEMIR 100 UNITS/ML MDV SQ SCH (21:48)
[2017-08-18 23:14] VITALS: BP 135/90; PULSE 112; TEMP 99.2
--- NOTE | 2017-08-18 23:23 | PN ---
[facility] Progress Note Note: 47 years old female completed detox transferred to alcohol rehab unit, presents alteration of mentation, walking in to other people's room, urinating on the floor, refuses lactulose, refuses insulin coverage, visible tremors on lips, hands, and facial muscle, patient exhibits repetitive movement pacing from room to bathroom on [address], slurred speech, unable to follow direction. ambulance was called, information provided to ER, may return continue rehab when medically cleared
[2017-08-19] MEDS: INSULIN SLIDING SCALE (NOVOLOG) 1 VIAL SQ SCH (06:58)
[2017-08-21] MEDS ORDERED: LACTULOSE 20 GM/30 ML UDC (FOR ORAL USE ONLY) PO SCH (22:00)
== END 2017-08-19 09:35 | disposition short-term general hospital (02) | DRG 895 ==
LOC: YASAS 10:04 → Y6N 13:06 → Y3E 08-17 12:44
PROVIDERS: ADMIT Internal Medicine; ATTEND Psychiatry & Neurology Psychiatry
PROC: HZ42ZZZ Group Counseling for Substance Abuse Treatment, Cognitive-Behavioral (ICD-10-PCS; principal; 2017-08-13)
PROC: HZ2ZZZZ Detoxification Services for Substance Abuse Treatment (ICD-10-PCS; 2017-08-17)
DX: F10.230 Alcohol dependence with withdrawal, uncomplicated (principal); F14.20 Cocaine dependence, uncomplicated; F19.24 Other psychoactive substance dependence with psychoactive substance-induced mood disorder; G47.00 Insomnia, unspecified; Z79.4 Long term (current) use of insulin; I10 Essential (primary) hypertension; K21.9 Gastro-esophageal reflux disease without esophagitis; G62.1 Alcoholic polyneuropathy; K72.10 Chronic hepatic failure without coma
CPT/HCPCS: 36415; 80053; 81003; 81015; 82140; 85027; 86593; 93005; 93010

== ENCOUNTER 2017-08-18 23:21 | Inpatient (IN) | payer MEDICARE, OTHER ==
[2017-08-19] MEDS ORDERED: ONDANSETRON 4 MG/2 ML VIAL IVPUSH ONE (01:05)
[2017-08-19] MEDS ORDERED: LACTULOSE 20 GM/30 ML UDC (FOR ORAL USE ONLY) PO ONE ×2 (01:06→18:40)
--- NOTE | 2017-08-19 01:09 | PDOC ---
History of Present Illness - History of Present Illness Initial Comments: 08/19/17 01:09 The patient is a 47 year old female, BIBA from [facility] with a significant past medical history of Cocaine abuse, EtOH abuse, HTN, GERD, liver cirrhosis, and Type 1 Diabetes who presents to the emergency department from [facility] s/p recent admission via EMS for chills, diffuse body aches, pains, and nausea. The patient reports chills, but denies fever. She reports pain to her entire body. She denies abdominal pain. As per [facility] staff the patient was confused and combative today. Also, [facility] reports the patients ammonia level was 185 after refusing lactulose. She denies recent fevers, headache or dizziness. She denies recent vomit, diarrhea or constipation. She denies recent dysuria, frequency, urgency or hematuria. She denies recent chest pain or shortness of breath. Allergies: See Nursing Notes Past surgical history: Prior orthopedic neck surgery. Social history: Cocaine and EtOH abuse Primary Care Physician: N/A <Karla Nye - Last Filed: 08/19/17 01:09> - General History Source: Patient <Priya Kamara - Last Filed: 08/19/17 07:01> - General Stated Complaint: NAUSEA/VOMITING Past History <Karla Nye - Last Filed: 08/19/17 01:09> - Past Medical History Anemia: No Asthma: No Cancer: No Cardiac Disorders: No CVA: No COPD: No CHF: No Dementia: No Diabetes: Yes GI Disorders: Yes Disorders: No HTN: Yes Hypercholesterolemia: No Kidney Stones: No Liver Disease: No Seizures: No Thyroid Disease: No - Surgical History Abdominal Surgery: Yes (TUBAL LIGATION IN 2005) Appendectomy: No Cardiac Surgery: No Cholecystectomy: No Lung Surgery: No Neurologic Surgery: No Orthopedic Surgery: Yes (neck, 11/30/2015 (fall);SX COCYX DUE TO OSTEOMYLITIS- 2010) - Reproductive History PID: No - Immunization History Immunization Up to Date: No - Suicide/Smoking/Psychosocial Hx Smoking History: Current some day smoker Have you smoked in the past 12 months: Yes Number of Cigarettes Smoked Daily: 0 Cigars Per Day: 0 Information on smoking cessation initiated: No 'Breaking Loose' booklet given: 05/30/16 Hx Alcohol Use: Yes Drug/Substance Use Hx: Yes Substance Use Type: Alcohol, Cocaine Hx Substance Use Treatment: Yes (completed this program last year,no significant clean time ) <AnhPriya - Last Filed: 08/19/17 07:01> - Past Medical History Allergies/Adverse Reactions: Allergies Allergy/AdvReac Type Severity Reaction Status Date / Time shellfish derived Allergy Severe Hives Verified 08/18/17 23:37 strawberry Allergy Severe Hives Verified 08/18/17 23:37 No Known Drug Allergies Allergy Verified 08/18/17 23:37 Home Medications: Ambulatory Orders Insulin Sliding Scale [Novolog Vial Sliding Scale -] 0 units SQ TIDAC 05/30/16 Ibuprofen [Motrin -] 800 mg PO Q8H PRN #60 tablet 11/27/16 Lisinopril [Prinivil] 20 mg PO DAILY #30 tablet 11/27/16 Ranitidine [Zantac -] 150 mg PO BID #60 tablet 11/27/16 Gabapentin [Neurontin -] 400 mg PO TID #90 cap 04/09/17 Trazodone HCl [Desyrel -] 200 mg PO HS #30 tablet 04/09/17 Insulin (Levemir) [Levemir Flexpen -] 40 units SQ HS 04/30/17 Pregabalin [Lyrica] 150 mg PO HS 04/30/17 Thiamine HCl [B-1] 100 mg PO HS 04/30/17 Review of Systems - Review of Systems Able to Perform ROS?: Yes Comments:: 08/19/17 01:09 GENERAL/CONSTITUTIONAL: (+) chills. No fever. No weakness. HEAD, EYES, EARS, NOSE AND THROAT: No change in vision. No ear pain or discharge. No sore throat. CARDIOVASCULAR: No chest pain or shortness of breath. RESPIRATORY: No cough, wheezing, or hemoptysis. GASTROINTESTINAL: No nausea, vomiting, diarrhea or constipation. GENITOURINARY: No dysuria, frequency, or change in urination. MUSCULOSKELETAL: (+) generalized body pain. No joint or muscle swelling. No neck pain. SKIN: No rash NEUROLOGIC: No headache, vertigo, loss of consciousness, or change in strength/ sensation. ENDOCRINE: No increased thirst. No abnormal weight change. HEMATOLOGIC/LYMPHATIC: No anemia, easy bleeding, or history of blood clots. ALLERGIC/IMMUNOLOGIC: No hives or skin allergy. <Karla Nye - Last Filed: 08/19/17 01:09> *Physical Exam - Vital Signs Last Vital Signs Temp Pulse Resp BP Pulse Ox 98.1 F 101 H 20 139/86 99 08/18/17 23:32 08/18/17 23:32 08/18/17 23:32 08/18/17 23:32 08/18/17 23:32 - Physical Exam Comments: 08/19/17 01:10 GENERAL: Awake but drowsy, and fully oriented, in no acute distress HEAD: No signs of trauma EYES: PERRLA, EOMI, sclera anicteric, conjunctiva clear ENT: Auricles normal inspection, hearing grossly normal, nares patent, oropharynx clear without exudates. Moist mucosa NECK: Normal ROM, supple, no lymphadenopathy, JVD, or masses LUNGS: Breath sounds equal, clear to auscultation bilaterally. No wheezes, and no crackles HEART: Regular rate and rhythm, normal S1 and S2, no murmurs, rubs or gallops ABDOMEN: Soft, nontender, normoactive bowel sounds. No guarding, no rebound. No masses EXTREMITIES: Normal range of motion, no edema. No clubbing or cyanosis. No cords , erythema, or tenderness NEUROLOGICAL: Cranial nerves II through XII grossly intact. Normal speech, normal gait SKIN: Warm, Dry, normal turgor, no rashes or lesions noted. <Karla Nye - Last Filed: 08/19/17 01:09> - Vital Signs Last Vital Signs Temp Pulse Resp BP Pulse Ox 98.1 F 101 H 20 139/86 99 08/18/17 23:32 08/18/17 23:32 08/18/17 23:32 08/18/17 23:32 08/18/17 23:32 <Priya Kamara - Last Filed: 08/19/17 07:01> Heart Score/ECG Review #1 General ECG Interpretation: Sinus Rhythm, Normal Rate (99), Normal Intervals, No acute ischemic changes <Priya Kamara - Last Filed: 08/19/17 07:01> ED Treatment Course - LABORATORY CBC & Chemistry Diagram: 08/19/17 06:09 08/19/17 06:02 <Priya Kamara - Last Filed: 08/19/17 07:01> Medical Decision Making - Medical Decision Making 08/19/17 01:07 47 yo F with h/o DM HTN cirrhosis, etoh abuse and cocain abuse, recently admitted with etoh withdrawal, then sent to [facility] x 5 days, here from [facility] because was confused and refusing her lactulose, her ammonia was 185. no vomiting currently c/o diffuse body aches, no f/c no abd pain. no urinary symptoms. on exam awake but drowsy, cooperative. lungs clear heart rrr no mrg. abd soft nt nd. ext wwp no edema no calf tenderness. differential: encephalopathy from cirrhosis, electrolyte abnormality infection, intox. plan drug screen ua labs ammonia level. lactulose reassess. <Priya Kamara - Last Filed: 08/19/17 07:01> *DC/Admit/Observation/Transfer - Attestations Scribe Attestion: 08/19/17 01:11 Documentation prepared by Karla Nye, acting as medical secretary for Priya Kamara MD, <Karla Nye - Last Filed: 08/19/17 01:09> - Discharge Dispostion Admit: Yes <Priya Kamara - Last Filed: 08/19/17 07:01> Diagnosis at time of Disposition: Hyperglycemia, Liver failure - Discharge Dispostion Condition at time of disposition: Fair - Referrals Referrals: Mohsen Lima MD [Primary Care Provider] -
[2017-08-19] MEDS ORDERED: LACTULOSE 20 GM/30 ML UDC (FOR ORAL USE ONLY) ONE ×2 (01:15→10:07)
[2017-08-19] MEDS ORDERED: ONDANSETRON 4 MG/2 ML VIAL ONE (01:15)
[2017-08-19 02:18] LABS: ALBUMIN 2.6 g/dl (3.4-5.0); ANION GAP 14 (8-16); BILIRUBIN,TOTAL 0.5 mg/dL (0.2-1.0); CALCIUM 9.5 mg/dL (8.5-10.1); CO2 21 mmol/L (21-32); CREATININE 0.7 mg/dL (0.55-1.02); SGPT/ALT 48 U/L (12-78); TOT PROT 7.2 g/dl (6.4-8.2)
[2017-08-19 02:19] LABS: ALK PHOS 253 U/L (45-117)
[2017-08-19 02:20] LABS: SGOT/AST 46 U/L (15-37)
[2017-08-19 02:23] LABS: GLUCOSE,RANDOM 628 mg/dL (74-106)
[2017-08-19] MEDS ORDERED: INSULIN (NOVOLOG) ASPART 100 UNITS/ML 10ML VIAL SQ ONE (02:46)
[2017-08-19] MEDS ORDERED: LORazepam 2 MG/ML SDV VIAL ONE (03:17)
[2017-08-19] MEDS ORDERED: INSULIN REGULAR HUMAN 100 UNITS/ML *VIAL SQ ONE ×2 (03:30→07:28)
[2017-08-19] MEDS ORDERED: SODIUM CHLORIDE 0.9% 1000 ML INFUS.BAG IV ONE (06:09)
[2017-08-19 06:26] LABS: MCH 27.7 pg (25.7-33.7); MCHC 32.5 g/dl (32.0-36.0); MEAN CELL VOLUME 85.1 fl (80-96); MEAN PLT VOLUME 8.3 fl (7.5-11.1); PLATELET COUNT 186 K/MM3 (134-434); RDW 17.7 % (11.6-15.6)
[2017-08-19 06:33] LABS: ALBUMIN 2.6 g/dl (3.4-5.0); ANION GAP 8 (8-16); BILIRUBIN,TOTAL 0.3 mg/dL (0.2-1.0); CALCIUM 9.6 mg/dL (8.5-10.1); CO2 24 mmol/L (21-32); CREATININE 0.6 mg/dL (0.55-1.02); SGOT/AST 32 U/L (15-37); SGPT/ALT 47 U/L (12-78); TOT PROT 7.5 g/dl (6.4-8.2)
[2017-08-19 06:36] LABS: ALK PHOS 266 U/L (45-117)
[2017-08-19 06:37] LABS: GLUCOSE,RANDOM 432 mg/dL (74-106)
[2017-08-19] MEDS ORDERED: INSULIN NPH 100 UNITS/ML *VIAL ONE (07:17)
[2017-08-19] MEDS ORDERED: ONDANSETRON 4 MG/2 ML VIAL IVPB PRN (08:28)
[2017-08-19] MEDS ORDERED: SODIUM CHLORIDE 1,000 ML IV STA (08:28)
--- NOTE | 2017-08-19 08:33 | HP ---
CHIEF COMPLAINT: Feeling unwell PCP: Janeen Morgan MD (Requested Us to Admit) HISTORY OF PRESENT ILLNESS: 47 yo F h/o cocaine and alcohol abuse, HTN, GERD, liver cirrhosis s/p TIPS in 2010, pancreatitis and IDDM type [address] [facility] alcohol rehab unit due to altered mental status. Patient is too drowsy and thus unable to provide any reliable history. Per chart from [facility], around 08/18 midnight patient was found by nurse to be altered and delirious with behavioral changes, tremulous, incoordinated and uncooperative in that she refused her meds and was combative to staff. Labs at [facility] are notable for ammonia level 185 and blood glc of 628. Patient is drowsy but lucid enough to report no fever, chills, chest pain, shortness of breath, abd pain, urinary or bowel symptoms. ER course was notable for: (1) elevated ammonia and blood glc (2) refused lactulose but received 10 units of R insulin Recent Travel Denies Past Medical History Cardio/Vascular HTN,Other Gastrointestinal GERD Hepatobiliary Cirrhosis,Other Psych Addictions,Other Endocrine Diabetes Mellitus Additional Medical History peripheral neuropathy Past Surgical History Cholecystectomy,Tubal Ligation, TIPS procedure in 2010 Social History Smoking history Current some day smoker Have you smoked in the past 12 Yes months Hx Alcohol Use Yes ADL Independent Occupation disabled Family History: Non-contributory Allergies Allergy/AdvReac Type Severity Reaction Status Date / Time shellfish derived Allergy Severe Hives Verified 08/18/17 23:37 strawberry Allergy Severe Hives Verified 08/18/17 23:37 No Known Drug Allergies Allergy Verified 08/18/17 23:37 Home Medications Medication Instructions Recorded Insulin Sliding Scale [Novolog 0 units SQ TIDAC 05/30/16 Vial Sliding Scale -] Ibuprofen [Motrin -] 800 mg PO Q8H PRN #60 tablet 11/27/16 Lisinopril [Prinivil] 20 mg PO DAILY #30 tablet 11/27/16 Ranitidine [Zantac -] 150 mg PO BID #60 tablet 11/27/16 Gabapentin [Neurontin -] 400 mg PO TID #90 cap 04/09/17 Trazodone HCl [Desyrel -] 200 mg PO HS #30 tablet 04/09/17 Insulin (Levemir) [Levemir Flexpen 40 units SQ HS 04/30/17 -] Pregabalin [Lyrica] 150 mg PO HS 04/30/17 Thiamine HCl [B-1] 100 mg PO HS 04/30/17 REVIEW OF SYSTEMS (Unable to fully assess due to drowsiness) CONSTITUTIONAL: generalized weakness, malaise Absent: fever, chills, diaphoresis,, loss of appetite, weight change HEENT: Absent: rhinorrhea, nasal congestion, throat pain, throat swelling, difficulty swallowing, mouth swelling, ear pain, eye pain, visual changes CARDIOVASCULAR: Absent: chest pain, syncope, palpitations, irregular heart rate, lightheadedness , peripheral edema RESPIRATORY: Absent: cough, shortness of breath, dyspnea with exertion, orthopnea, wheezing, stridor, hemoptysis GASTROINTESTINAL: Absent: abdominal pain, abdominal distension, nausea, vomiting, diarrhea, constipation, melena, hematochezia GENITOURINARY: Absent: dysuria, frequency, urgency, hesitancy, hematuria, flank pain, genital pain MUSCULOSKELETAL: Absent: myalgia, arthralgia, joint swelling, back pain, neck pain SKIN: Absent: rash, itching, pallor HEMATOLOGIC/IMMUNOLOGIC: Absent: easy bleeding, easy bruising, lymphadenopathy, frequent infections ENDOCRINE: Absent: unexplained weight gain, unexplained weight loss, heat intolerance, cold intolerance NEUROLOGIC: Absent: headache, focal weakness or paresthesias, dizziness, unsteady gait, seizure, mental status changes, bladder or bowel incontinence PSYCHIATRIC: Absent: anxiety, depression, suicidal or homicidal ideation, hallucinations. PHYSICAL EXAMINATION Temp Pulse Resp BP Pulse Ox 98.1 F 101 H 20 139/86 99 08/18/17 23:32 08/18/17 23:32 08/18/17 23:32 08/18/17 23:32 08/18/17 23:32 GENERAL: Sleepy, drowsy, uncooperative but arousable and AAO x 3, not in any acute distress HEAD: Normal with no signs of trauma. EYES: Refused eye exam EARS, NOSE, THROAT: Refused LUNGS: CTAB HEART:tachycardic and regular rhythm, normal S1 and S2 without murmur, rub or gallop. ABDOMEN: Refused EXTREMITIES: 2+ pulses, dorsal foot tenderness. No peripheral edema, non- infected healing R plantar ulcer, non-tender, non-erythematous. NEUROLOGICAL: Refused. PSYCHIATRIC: uncooperative. SKIN: Warm, dry, normal turgor, no rashes or lesions noted ASSESSMENT/PLAN: 47 yo F h/o cocaine and alcohol abuse, HTN, GERD, liver cirrhosis, pancreatitis and IDDM type 1 admitted to med-surg inpatient service for altered mental status. Altered mental status, acute - 2/2 hepatic encephalopathy * precipitating factors: infection vs. non-compliance * f/u on UA - Lactulose PO 20mg BID and banana bag x 1 * cont. PO thiamine and folic acid - Cont. hydration - f/u repeat ammonia level - Neuro checks Hyperglycemia - 2/2 IDDM type I non compliance - f/u repeat glc - Cont Levemir 40 units HS - Novolog sliding scale Liver cirrhosis with chronic portal vein thrombosis, s/p TIPS procedure 2009 - TIPS shunt patent as of 05/2017 - Not in decompensation - Outpatient followup h/o Diabetic right foot ulcer - Healing, non-infected and MRI (05/2017) equivocal for osteo - Piror culture positive for ESBL, Enterococcus faecalis, and MRSA - s/p ceftriaxone, ertapenem, and vanco HTN - Controlled - Cont. lisinporil GERD - Cont. Zantac FEN - IV bolus 1L + standing fluid 125cc/hr - Normal lytes - DM diet Prophylaxis - DVT: lovenox - GI: home zantac Dispo - Monitor on med-surg Mike Sanabria, Medicine PGY2 Pager: [phone] Visit type - Emergency Visit Emergency Visit: Yes ED Registration Date: 08/19/17 Care time: The patient presented to the Emergency Department on the above date and was hospitalized for further evaluation of their emergent condition. - New Patient This patient is new to me today: Yes Date on this admission: 08/19/17 - Critical Care Critical Care patient: No
[2017-08-19] MEDS ORDERED: IBUPROFEN 400 MG TABLET (FP) PO PRN (08:40)
[2017-08-19 09:54] LABS: ALBUMIN 2.7 g/dl (3.4-5.0); ALK PHOS 251 U/L (45-117); ANION GAP 7 (8-16); BILIRUBIN,TOTAL 0.6 mg/dL (0.2-1.0); CALCIUM 9.6 mg/dL (8.5-10.1); CO2 23 mmol/L (21-32); CREATININE 0.6 mg/dL (0.55-1.02); PHOSPHOROUS 4.2 mg/dL (2.5-4.9); SGPT/ALT 53 U/L (12-78); TOT PROT 7.9 g/dl (6.4-8.2)
[2017-08-19 09:56] LABS: SGOT/AST 61 U/L (15-37)
[2017-08-19] MEDS ORDERED: RIFAXIMIN 550 MG TABLET (UD) PO SCH (10:00)
[2017-08-19] MEDS: LACTULOSE 20 GM/30 ML UDC (FOR ORAL USE ONLY) PO SCH ×2 (10:06→21:23)
[2017-08-19] MEDS: ENOXAPARIN NA (PORCINE) 40 MG/0.4 ML DISP.SYRIN SQ SCH (10:06)
[2017-08-19] MEDS: RANITIDINE HCL 150 MG TABLET (FP) PO SCH ×2 (10:06→21:26)
[2017-08-19] MEDS: LISINOPRIL 20 MG TABLET (FP) PO SCH (10:06)
[2017-08-19] MEDS ORDERED: RANITIDINE HCL 150 MG TABLET (FP) ONE (10:08)
[2017-08-19 10:11] LABS: GLUCOSE,RANDOM 385 mg/dL (74-106)
[2017-08-19 10:33] VITALS: BMI 26.6
[2017-08-19] MEDS: INSULIN SLIDING SCALE (NOVOLOG) 1 VIAL SQ SCH ×2 (10:33→16:04)
[2017-08-19] MEDS ORDERED: FOLIC ACID INJECTION - 1 MG, THIAMINE HCL 100 MG, MULTIVIT INJECTION ADULT 10 ML in SOD... IVPB ONE (11:00)
[2017-08-19 11:31] LABS: URINE APPEARANCE CLEAR; URINE BILIRUBIN NEGATIVE (NEGATIVE); URINE BLOOD 1+ (NEGATIVE); URINE COLOR LTYELLOW; URINE GLUCOSE (UA) 3+ (NEGATIVE); URINE KETONE NEGATIVE (NEGATIVE); URINE LEUK ESTERASE NEGATIVE (NEGATIVE); URINE NITRITE NEGATIVE (NEGATIVE); URINE PROTEIN NEGATIVE (NEGATIVE); URINE UROBILINOGEN NEGATIVE mg/dL (0.2-1.0)
[2017-08-19 11:40] LABS: URINE RBC 3 /hpf (0-3); URINE WBC 1 /hpf (3-5)
[2017-08-19] MEDS: SODIUM CHLORIDE 1,000 ML IV SCH ×2 (13:01→17:56)
[2017-08-19] MEDS: GABAPENTIN 400 MG CAPSULE (FP) PO SCH ×2 (13:01→21:25)
[2017-08-19 14:27] LABS: URINE MARIJUANA THC NEGATIVE ng/ml (CUTOFF=50)
--- NOTE | 2017-08-19 14:41 | PN ---
Teaching Attending Note Name of Resident: Jorge Tipton ATTENDING PHYSICIAN STATEMENT I saw and evaluated the patient. I reviewed the resident's note and discussed the case with the resident. I agree with the resident's findings and plan as documented. SUBJECTIVE: Patient is a 47 yo Female with h/o cocaine and alcohol abuse, HTN, GERD, liver cirrhosis s/p TIPS in 2009, pancreatitis and IDDM type 1 ,was send from [facility] alcohol rehab unit for altered mental status. OBJECTIVE: Vital Signs Temperature 98.1 F 08/19/17 14:07 Pulse Rate 84 08/19/17 14:07 Respiratory Rate 18 08/19/17 14:07 Blood Pressure 108/72 08/19/17 14:07 O2 Sat by Pulse Oximetry (%) 98 08/19/17 14:07 CBCD WBC 5.0 K/mm3 (4.0-10.0) 08/19/17 06:09 RBC 4.54 M/mm3 (3.60-5.2) 08/19/17 06:09 Hgb 12.6 GM/dL (10.7-15.3) 08/19/17 06:09 Hct 38.6 % (32.4-45.2) 08/19/17 06:09 MCV 85.1 fl (80-96) 08/19/17 06:09 MCHC 32.5 g/dl (32.0-36.0) 08/19/17 06:09 RDW 17.7 % (11.6-15.6) H 08/19/17 06:09 Plt Count 186 K/MM3 (134-434) 08/19/17 06:09 MPV 8.3 fl (7.5-11.1) 08/19/17 06:09 CMP Sodium 136 mmol/L (136-145) 08/19/17 09:04 Potassium 4.7 mmol/L (3.5-5.1) D 08/19/17 09:04 Chloride 106 mmol/L (98-107) 08/19/17 09:04 Carbon Dioxide 23 mmol/L (21-32) 08/19/17 09:04 Anion Gap 7 (8-16) L 08/19/17 09:04 BUN 21 mg/dL (7-18) H 08/19/17 09:04 Creatinine 0.6 mg/dL (0.55-1.02) 08/19/17 09:04 Creat Clearance w eGFR > 60 (>60) 08/19/17 09:04 Random Glucose 385 mg/dL (74-106) H* 08/19/17 09:04 Calcium 9.6 mg/dL (8.5-10.1) 08/19/17 09:04 Total Bilirubin 0.6 mg/dL (0.2-1.0) D 08/19/17 09:04 AST 61 U/L (15-37) H D 08/19/17 09:04 ALT 53 U/L (12-78) 08/19/17 09:04 Alkaline Phosphatase 251 U/L (45-117) H 08/19/17 09:04 Total Protein 7.9 g/dl (6.4-8.2) 08/19/17 09:04 Albumin 2.7 g/dl (3.4-5.0) L 08/19/17 09:04 Current Medications Generic Name Dose Route Start Last Admin Trade Name Alex PRN Reason Stop Dose Admin Enoxaparin Sodium 40 mg 08/19/17 10:00 08/19/17 10:06 Lovenox - SQ 40 mg DAILY SIRIA Administration Gabapentin 400 mg 08/19/17 14:00 08/19/17 13:01 Neurontin - PO 400 mg TID SIRIA Administration Folic Acid 1 mg/ Thiamine HCl 1,000 mls @ 125 mls/hr 08/19/17 11:00 08/19/17 10 :34 100 mg/ Multivitamins/Minerals IVPB 08/19/17 18:59 125 mls/hr 10 ml/ Sodium Chloride ONCE ONE Administration Sodium Chloride 1,000 mls @ 125 mls/hr 08/19/17 13:00 08/19/17 13:01 Normal Saline - IV 125 mls/hr ASDIR SIRIA Administration Ibuprofen 800 mg 08/19/17 08:40 Motrin - PO Q8H PRN PAIN Insulin Aspart 1 vial 08/19/17 11:00 08/19/17 10:33 Novolog Vial Sliding Scale - SQ 10 unit TIDAC SIRIA Administration Protocol Insulin Detemir 40 units 08/19/17 22:00 Levemir Vial SQ HS SIRIA Lactulose 20 gm 08/19/17 10:00 08/19/17 10:06 Cephulac (Oral Use) PO 20 gm BID SIRIA Administration Lisinopril 20 mg 08/19/17 10:00 08/19/17 10:06 Prinivil PO 20 mg DAILY SIRIA Administration Ondansetron HCl 4 mg 08/19/17 08:28 Zofran Injection IVPB Q6H PRN NAUSEA Pregabalin 150 mg 08/19/17 22:00 Lyrica - PO HS SIRIA Ranitidine HCl 150 mg 08/19/17 10:00 08/19/17 10:06 Zantac - PO 150 mg BID SIRIA Administration Thiamine HCl 100 mg 08/19/17 22:00 Vitamin B1 - PO HS SIRIA Trazodone HCl 200 mg 08/19/17 22:00 Desyrel - PO HS SIRIA Hepatic Panel Total Bilirubin 0.6 mg/dL (0.2-1.0) D 08/19/17 09:04 AST 61 U/L (15-37) H D 08/19/17 09:04 ALT 53 U/L (12-78) 08/19/17 09:04 Alkaline Phosphatase 251 U/L (45-117) H 08/19/17 09:04 Albumin 2.7 g/dl (3.4-5.0) L 08/19/17 09:04 PE: answers to questions , but drowsy CVS:S1S2 positive chest :CTA bL Abdomen:soft, NT EXt: positive for diabetic ulcer ASSESSMENT AND PLAN: 47 yo F h/o cocaine and alcohol abuse, HTN, GERD, liver cirrhosis, pancreatitis and IDDM type 1 admitted to med-surg inpatient service for altered mental status. and was found to have elevated ammonia level. # Acute change of mental status, improving , most likely due to elevated ammonia level , lactulose 20gm 3x tday , and 2 x daily check ammonia level in am. # Type I dm ;Hyperglycemia; noncompliant , on Levemir 40U qhs, sliding scale #Liver cirrhosis with chronic portal vein thrombosis, s/p TIPS procedure 2009 # Diabetic right nonhealing foot ulcer; MRI (05/2017) equivocal for osteo, Podiatry consult # HTN controlled continue lisinporil DVT Prophylaxis lovenox GI: home zantac
--- NOTE | 2017-08-19 21:02 | EKG ---
Test Reason : Blood Pressure : / mmHG Vent. Rate : 099 BPM Atrial Rate : 099 BPM P-R Int : 134 ms QRS Dur : 080 ms QT Int : 384 ms P-R-T Axes : 070 016 028 degrees QTc Int : 492 ms NORMAL SINUS RHYTHM POSSIBLE LEFT ATRIAL ENLARGEMENT PROLONGED QT ABNORMAL ECG WHEN COMPARED WITH ECG OF 14-AUG-2017 08:15, NO SIGNIFICANT CHANGE WAS FOUND Confirmed by DIMITRIOS RIOJAS MD ([id number]) on 08/19/2017 9:02:08 PM Referred By: Confirmed By:DIMITRIOS RIOJAS MD
[2017-08-19] MEDS ORDERED: traZODone HCL 50 MG TABLET (FP) ONE (21:14)
--- NOTE | 2017-08-19 21:20 | PN ---
[facility] Progress Note (SOAP) Subjective: Pt was to ED from rehab because of increase drowsiness Objective: 08/19/17 21:18 Vital Signs - 8 hr 08/19/17 08/19/17 08/19/17 14:07 16:26 17:00 Temperature 98.1 F 98.0 F 97.9 F Pulse Rate 95 H Pulse Rate [ 84 96 H Left Apical] Respiratory 18 18 20 Rate Blood Pressure 119/73 Blood Pressure 108/72 138/86 [Left Arm] O2 Sat by Pulse 98 100 Oximetry (%) 08/19/17 18:15 Temperature Pulse Rate Pulse Rate [ Left Apical] Respiratory 20 Rate Blood Pressure Blood Pressure [Left Arm] O2 Sat by Pulse 100 Oximetry (%) Laboratory Tests 08/19/17 08/19/17 08/19/17 01:45 01:45 01:45 WBC Cancelled Corrected WBC (auto) Cancelled RBC Cancelled Hgb Cancelled Hct Cancelled MCV Cancelled MCH Cancelled MCHC Cancelled RDW Cancelled Plt Count Cancelled MPV Cancelled Neutrophils % Cancelled Lymphocytes % Cancelled Monocytes % Cancelled Eosinophils % Cancelled Basophils % Cancelled Platelet Estimate Cancelled Platelet Comment Cancelled RBC Morphology Cancelled Sodium 133 L Potassium 4.4 Chloride 98 Carbon Dioxide 21 Anion Gap 14 BUN 23 H D Creatinine 0.7 D Creat Clearance w eGFR > 60 POC Glucometer Random Glucose 628 H* Specific [place] Calcium 9.5 Phosphorus Magnesium Total Bilirubin 0.5 AST 46 H ALT 48 D Alkaline Phosphatase 253 H Ammonia 46.67 H B-Natriuretic Peptide Total Protein 7.2 Albumin 2.6 L Urine Color Urine Appearance Urine pH Ur Specific [place] Urine Protein Urine Glucose (UA) Urine Ketones Urine Blood Urine Nitrite Urine Bilirubin Urine Urobilinogen Urine RBC Urine WBC Ur Epithelial Cells Urine Butalbital Ur Butalbital Confirm Opiates Screen Urine Opiates Screen Meperidine Urine Normeperidine U Normeperidine GC/MS Urine Codeine U Codeine Confrm GC/MS Urine Morphine Morphine Confirm GC/MS Urine Hydrocodone Ur Hydrocodone (GC/MS) Oxycodone Urine Oxycodone Ur Oxycodone GC/MS Oxymorphone Confirm U Oxycodone/Oxymorphon Methadone Screen Ur Methadone Ur Methadone Confirm Ur Hydromorphone Ur Hydromorphone (GC/MS) Urine Propoxyphene U Propoxyphene/M GC/MS Barbiturate Screen Ur Barbiturates Screen Urine Barbiturates Phencyclidine Screen Ur Phencyclidine (PCP) Ur PCP Confirm (GC/MS) Amphetamines Amphetamines Grp GC/MS Ur Amphetamines Screen Urine Amphetamine Ur Amphetamines, Quant Methamphetamine Methamphetamine GC/MS MDMA (Ecstasy) Screen Urine Amobarbital Ur Amobarbital GC/MS Urine Pentobarbital U Pentobarbital GC/MS Urine Phenobarbital U Phenobarbital GC/MS Urine Secobarbital U Secobarbital GC/MS Urine Alprazolam U OH-Alprazolam GC/MS Benzodiazepines Screen U Benzodiazepines Scrn Urine Clonazepam U 7-Amino Clonazep GC/MS Ur Nordiazepam Ur Nordiazepam GC/MS Flurazepam Flurazepam Confirm Lorazepam Urine Lorazepam Ur Oxazepam U Oxazepam Confm GC/MS Urine Temazepam Ur Temazepam (GC/MS) Urine Triazolam Ur Triazolam (GC/MS) Meperidine (GC/MS) Ur Meperidine Cocaine Screen Cocaine & Metabolite Urine Cocaine Benzoylecgonine Cannabinoids Urine Cannabinoids U Marijuana (THC) Screen Urine Marijuana (THC) Drug Test Comment Alcohol, Quantitative Urine Ethyl Alcohol 08/19/17 08/19/17 08/19/17 05:50 06:02 06:09 WBC Cancelled 5.0 Corrected WBC (auto) Cancelled RBC Cancelled 4.54 Hgb Cancelled 12.6 Hct Cancelled 38.6 MCV Cancelled 85.1 MCH Cancelled 27.7 MCHC Cancelled 32.5 RDW Cancelled 17.7 H Plt Count Cancelled 186 MPV Cancelled 8.3 Neutrophils % Cancelled Lymphocytes % Cancelled Monocytes % Cancelled Eosinophils % Cancelled Basophils % Cancelled Platelet Estimate Cancelled Platelet Comment Cancelled RBC Morphology Cancelled Sodium 135 L Potassium 3.9 Chloride 103 Carbon Dioxide 24 Anion Gap 8 BUN 20 H Creatinine 0.6 Creat Clearance w eGFR > 60 POC Glucometer Random Glucose 432 H* D Specific [place] Calcium 9.6 Phosphorus Magnesium Total Bilirubin 0.3 D AST 32 D ALT 47 Alkaline Phosphatase 266 H Ammonia B-Natriuretic Peptide 14.26 Total Protein 7.5 Albumin 2.6 L Urine Color Urine Appearance Urine pH Ur Specific [place] Urine Protein Urine Glucose (UA) Urine Ketones Urine Blood Urine Nitrite Urine Bilirubin Urine Urobilinogen Urine RBC Urine WBC Ur Epithelial Cells Urine Butalbital Ur Butalbital Confirm Opiates Screen Urine Opiates Screen Meperidine Urine Normeperidine U Normeperidine GC/MS Urine Codeine U Codeine Confrm GC/MS Urine Morphine Morphine Confirm GC/MS Urine Hydrocodone Ur Hydrocodone (GC/MS) Oxycodone Urine Oxycodone Ur Oxycodone GC/MS Oxymorphone Confirm U Oxycodone/Oxymorphon Methadone Screen Ur Methadone Ur Methadone Confirm Ur Hydromorphone Ur Hydromorphone (GC/MS) Urine Propoxyphene U Propoxyphene/M GC/MS Barbiturate Screen Ur Barbiturates Screen Urine Barbiturates Phencyclidine Screen Ur Phencyclidine (PCP) Ur PCP Confirm (GC/MS) Amphetamines Amphetamines Grp GC/MS Ur Amphetamines Screen Urine Amphetamine Ur Amphetamines, Quant Methamphetamine Methamphetamine GC/MS MDMA (Ecstasy) Screen Urine Amobarbital Ur Amobarbital GC/MS Urine Pentobarbital U Pentobarbital GC/MS Urine Phenobarbital U Phenobarbital GC/MS Urine Secobarbital U Secobarbital GC/MS Urine Alprazolam U OH-Alprazolam GC/MS Benzodiazepines Screen U Benzodiazepines Scrn Urine Clonazepam U 7-Amino Clonazep GC/MS Ur Nordiazepam Ur Nordiazepam GC/MS Flurazepam Flurazepam Confirm Lorazepam Urine Lorazepam Ur Oxazepam U Oxazepam Confm GC/MS Urine Temazepam Ur Temazepam (GC/MS) Urine Triazolam Ur Triazolam (GC/MS) Meperidine (GC/MS) Ur Meperidine Cocaine Screen Cocaine & Metabolite Urine Cocaine Benzoylecgonine Cannabinoids Urine Cannabinoids U Marijuana (THC) Screen Urine Marijuana (THC) Drug Test Comment Alcohol, Quantitative Urine Ethyl Alcohol 08/19/17 08/19/17 08/19/17 09:04 09:04 09:04 WBC Corrected WBC (auto) RBC Hgb Hct MCV MCH MCHC RDW Plt Count MPV Neutrophils % Lymphocytes % Monocytes % Eosinophils % Basophils % Platelet Estimate Platelet Comment RBC Morphology Sodium 136 Potassium 4.7 D Chloride 106 Carbon Dioxide 23 Anion Gap 7 L BUN 21 H Creatinine 0.6 Creat Clearance w eGFR > 60 POC Glucometer Random Glucose 385 H* Specific [place] Calcium 9.6 Phosphorus Cancelled 4.2 Magnesium Cancelled 2.0 Total Bilirubin 0.6 D AST 61 H D ALT 53 Alkaline Phosphatase 251 H Ammonia B-Natriuretic Peptide Total Protein 7.9 Albumin 2.7 L Urine Color Urine Appearance Urine pH Ur Specific [place] Urine Protein Urine Glucose (UA) Urine Ketones Urine Blood Urine Nitrite Urine Bilirubin Urine Urobilinogen Urine RBC Urine WBC Ur Epithelial Cells Urine Butalbital Ur Butalbital Confirm Opiates Screen Urine Opiates Screen Meperidine Urine Normeperidine U Normeperidine GC/MS Urine Codeine U Codeine Confrm GC/MS Urine Morphine Morphine Confirm GC/MS Urine Hydrocodone Ur Hydrocodone (GC/MS) Oxycodone Urine Oxycodone Ur Oxycodone GC/MS Oxymorphone Confirm U Oxycodone/Oxymorphon Methadone Screen Ur Methadone Ur Methadone Confirm Ur Hydromorphone Ur Hydromorphone (GC/MS) Urine Propoxyphene U Propoxyphene/M GC/MS Barbiturate Screen Ur Barbiturates Screen Urine Barbiturates Phencyclidine Screen Ur Phencyclidine (PCP) Ur PCP Confirm (GC/MS) Amphetamines Amphetamines Grp GC/MS Ur Amphetamines Screen Urine Amphetamine Ur Amphetamines, Quant Methamphetamine Methamphetamine GC/MS MDMA (Ecstasy) Screen Urine Amobarbital Ur Amobarbital GC/MS Urine Pentobarbital U Pentobarbital GC/MS Urine Phenobarbital U Phenobarbital GC/MS Urine Secobarbital U Secobarbital GC/MS Urine Alprazolam U OH-Alprazolam GC/MS Benzodiazepines Screen U Benzodiazepines Scrn Urine Clonazepam U 7-Amino Clonazep GC/MS Ur Nordiazepam Ur Nordiazepam GC/MS Flurazepam Flurazepam Confirm Lorazepam Urine Lorazepam Ur Oxazepam U Oxazepam Confm GC/MS Urine Temazepam Ur Temazepam (GC/MS) Urine Triazolam Ur Triazolam (GC/MS) Meperidine (GC/MS) Ur Meperidine Cocaine Screen Cocaine & Metabolite Urine Cocaine Benzoylecgonine Cannabinoids Urine Cannabinoids U Marijuana (THC) Screen Urine Marijuana (THC) Drug Test Comment Alcohol, Quantitative < 5.0 Urine Ethyl Alcohol 08/19/17 08/19/17 08/19/17 09:14 10:00 11:16 WBC Corrected WBC (auto) RBC Hgb Hct MCV MCH MCHC RDW Plt Count MPV Neutrophils % Lymphocytes % Monocytes % Eosinophils % Basophils % Platelet Estimate Platelet Comment RBC Morphology Sodium Potassium Chloride Carbon Dioxide Anion Gap BUN Creatinine Creat Clearance w eGFR POC Glucometer > 400 Random Glucose Specific [place] Calcium Phosphorus Magnesium Total Bilirubin AST ALT Alkaline Phosphatase Ammonia 84.39 H B-Natriuretic Peptide Total Protein Albumin Urine Color Ltyellow Urine Appearance Clear Urine pH 6.0 Ur Specific [place] 1.015 Urine Protein Negative Urine Glucose (UA) 3+ H Urine Ketones Negative Urine Blood 1+ H Urine Nitrite Negative Urine Bilirubin Negative Urine Urobilinogen Negative Urine RBC 3 Urine WBC 1 Ur Epithelial Cells Rare Urine Butalbital Ur Butalbital Confirm Opiates Screen Urine Opiates Screen Meperidine Urine Normeperidine U Normeperidine GC/MS Urine Codeine U Codeine Confrm GC/MS Urine Morphine Morphine Confirm GC/MS Urine Hydrocodone Ur Hydrocodone (GC/MS) Oxycodone Urine Oxycodone Ur Oxycodone GC/MS Oxymorphone Confirm U Oxycodone/Oxymorphon Methadone Screen Ur Methadone Ur Methadone Confirm Ur Hydromorphone Ur Hydromorphone (GC/MS) Urine Propoxyphene U Propoxyphene/M GC/MS Barbiturate Screen Ur Barbiturates Screen Urine Barbiturates Phencyclidine Screen Ur Phencyclidine (PCP) Ur PCP Confirm (GC/MS) Amphetamines Amphetamines Grp GC/MS Ur Amphetamines Screen Urine Amphetamine Ur Amphetamines, Quant Methamphetamine Methamphetamine GC/MS MDMA (Ecstasy) Screen Urine Amobarbital Ur Amobarbital GC/MS Urine Pentobarbital U Pentobarbital GC/MS Urine Phenobarbital U Phenobarbital GC/MS Urine Secobarbital U Secobarbital GC/MS Urine Alprazolam U OH-Alprazolam GC/MS Benzodiazepines Screen U Benzodiazepines Scrn Urine Clonazepam U 7-Amino Clonazep GC/MS Ur Nordiazepam Ur Nordiazepam GC/MS Flurazepam Flurazepam Confirm Lorazepam Urine Lorazepam Ur Oxazepam U Oxazepam Confm GC/MS Urine Temazepam Ur Temazepam (GC/MS) Urine Triazolam Ur Triazolam (GC/MS) Meperidine (GC/MS) Ur Meperidine Cocaine Screen Cocaine & Metabolite Urine Cocaine Benzoylecgonine Cannabinoids Urine Cannabinoids U Marijuana (THC) Screen Urine Marijuana (THC) Drug Test Comment Alcohol, Quantitative Urine Ethyl Alcohol 08/19/17 08/19/17 11:16 11:50 WBC Corrected WBC (auto) RBC Hgb Hct MCV MCH MCHC RDW Plt Count MPV Neutrophils % Lymphocytes % Monocytes % Eosinophils % Basophils % Platelet Estimate Platelet Comment RBC Morphology Sodium Potassium Chloride Carbon Dioxide Anion Gap BUN Creatinine Cancelled Creat Clearance w eGFR POC Glucometer Random Glucose Specific [place] Cancelled Calcium Phosphorus Magnesium Total Bilirubin AST ALT Alkaline Phosphatase Ammonia B-Natriuretic Peptide Total Protein Albumin Urine Color Urine Appearance Urine pH Ur Specific [place] Urine Protein Urine Glucose (UA) Urine Ketones Urine Blood Urine Nitrite Urine Bilirubin Urine Urobilinogen Urine RBC Urine WBC Ur Epithelial Cells Urine Butalbital Cancelled Ur Butalbital Confirm Cancelled Opiates Screen Negative Urine Opiates Screen Cancelled Meperidine Cancelled Urine Normeperidine Cancelled U Normeperidine GC/MS Cancelled Urine Codeine Cancelled U Codeine Confrm GC/MS Cancelled Urine Morphine Cancelled Morphine Confirm GC/MS Cancelled Urine Hydrocodone Cancelled Ur Hydrocodone (GC/MS) Cancelled Oxycodone Cancelled Urine Oxycodone Cancelled Ur Oxycodone GC/MS Cancelled Oxymorphone Confirm Cancelled U Oxycodone/Oxymorphon Cancelled Methadone Screen Negative Ur Methadone Cancelled Ur Methadone Confirm Cancelled Ur Hydromorphone Cancelled Ur Hydromorphone (GC/MS) Cancelled Urine Propoxyphene Cancelled U Propoxyphene/M GC/MS Cancelled Barbiturate Screen Negative Ur Barbiturates Screen Cancelled Urine Barbiturates Cancelled Phencyclidine Screen Negative Ur Phencyclidine (PCP) Cancelled Ur PCP Confirm (GC/MS) Cancelled Amphetamines Cancelled Amphetamines Grp GC/MS Cancelled Ur Amphetamines Screen Negative Urine Amphetamine Cancelled Ur Amphetamines, Quant Cancelled Methamphetamine Cancelled Methamphetamine GC/MS Cancelled MDMA (Ecstasy) Screen Negative Urine Amobarbital Cancelled Ur Amobarbital GC/MS Cancelled Urine Pentobarbital Cancelled U Pentobarbital GC/MS Cancelled Urine Phenobarbital Cancelled U Phenobarbital GC/MS Cancelled Urine Secobarbital Cancelled U Secobarbital GC/MS Cancelled Urine Alprazolam Cancelled U OH-Alprazolam GC/MS Cancelled Benzodiazepines Screen Positive U Benzodiazepines Scrn Cancelled Urine Clonazepam Cancelled U 7-Amino Clonazep GC/MS Cancelled Ur Nordiazepam Cancelled Ur Nordiazepam GC/MS Cancelled Flurazepam Cancelled Flurazepam Confirm Cancelled Lorazepam Cancelled Urine Lorazepam Cancelled Ur Oxazepam Cancelled U Oxazepam Confm GC/MS Cancelled Urine Temazepam Cancelled Ur Temazepam (GC/MS) Cancelled Urine Triazolam Cancelled Ur Triazolam (GC/MS) Cancelled Meperidine (GC/MS) Cancelled Ur Meperidine Cancelled Cocaine Screen Negative Cocaine & Metabolite Cancelled Urine Cocaine Cancelled Benzoylecgonine Cancelled Cannabinoids Cancelled Urine Cannabinoids Cancelled U Marijuana (THC) Screen Negative Urine Marijuana (THC) Cancelled Drug Test Comment Cancelled Alcohol, Quantitative Urine Ethyl Alcohol Cancelled Assessment: 08/26/17 15:29 Hyperammonemia Type I DM Plan: When medically stable, she may return to rehab
[2017-08-19] MEDS ORDERED: PREGABALIN 75 MG CAPSULE PO SCH (22:00)
[2017-08-19] MEDS ORDERED: INSULIN DETEMIR 100 UNITS/ML MDV SQ SCH (22:00)
[2017-08-19] MEDS ORDERED: THIAMINE HCL 100 MG TABLET (FP) PO SCH (22:00)
[2017-08-19] MEDS ORDERED: traZODone HCL 100 MG TABLET (FP) PO SCH ×2 (22:00)
[2017-08-20] MEDS ORDERED: INSULIN (NOVOLOG) ASPART 100 UNITS/ML 10ML VIAL ONE ×2 (06:08→12:10)
[2017-08-20] MEDS: GABAPENTIN 400 MG CAPSULE (FP) PO SCH ×2 (06:20→14:36)
[2017-08-20] MEDS: INSULIN SLIDING SCALE (NOVOLOG) 1 VIAL SQ SCH ×2 (06:21→12:18)
[2017-08-20] MEDS ORDERED: PT OWN MED DRAWER 7, Y5N ONE ×2 (06:45→12:10)
[2017-08-20 08:37] LABS: MCH 28.1 pg (25.7-33.7); MCHC 33.2 g/dl (32.0-36.0); MEAN CELL VOLUME 84.8 fl (80-96); MEAN PLT VOLUME 8.2 fl (7.5-11.1); PLATELET COUNT 156 K/MM3 (134-434); RDW 17.2 % (11.6-15.6); WHITE BLOOD COUNT 2.8 K/mm3 (4.0-10.0)
[2017-08-20 09:00] LABS: INR 1.12 (0.82-1.09); PROTHROMBIN TIME (PATIENT) 12.4 SEC (9.98-11.88)
[2017-08-20] MEDS: LISINOPRIL 20 MG TABLET (FP) PO SCH (09:14)
[2017-08-20] MEDS: LACTULOSE 20 GM/30 ML UDC (FOR ORAL USE ONLY) PO SCH (09:14)
[2017-08-20] MEDS: ENOXAPARIN NA (PORCINE) 40 MG/0.4 ML DISP.SYRIN SQ SCH (09:14)
[2017-08-20] MEDS: RANITIDINE HCL 150 MG TABLET (FP) PO SCH (09:14)
[2017-08-20 09:20] LABS: ALBUMIN 2.2 g/dl (3.4-5.0); ALK PHOS 178 U/L (45-117); ANION GAP 11 (8-16); BILIRUBIN,TOTAL 0.5 mg/dL (0.2-1.0); CALCIUM 8.1 mg/dL (8.5-10.1); CO2 19 mmol/L (21-32); CREATININE 0.4 mg/dL (0.55-1.02); GLUCOSE,RANDOM 259 mg/dL (74-106); PHOSPHOROUS 2.2 mg/dL (2.5-4.9); SGPT/ALT 48 U/L (12-78); TOT PROT 6.2 g/dl (6.4-8.2)
[2017-08-20 09:23] LABS: MAGNESIUM 1.8 mg/dL (1.8-2.4); SGOT/AST 57 U/L (15-37)
[2017-08-20] MEDS ORDERED: SODIUM CHLORIDE 1,000 ML IV SCH (09:30)
--- NOTE | 2017-08-20 11:55 | CONSULT ---
Consult - text type - Consultation Consultation Note: Podiatry Consultation: 47 year old F, IDDM and history of polysubstance abuse, sent in for admission for AMS and hyperglycemia. Patient has frequent admissions, has not followed up with me in wound care for close monitoring. Patient states that she had an incision and drainage on her right foot about 2months ago at another hospital, was treated for osteomyelitis as in-patient at a hospital in the [place]. She states that she healed uneventfully just with some callusing at the surgical site. Denies F/V/N/C/SOB/CP. Currently afebrile, VSS. PMHx: IDDM, HTN, GERD, pancreatitis, liver cirrhosis, cocaine/alcohol abuse Meds: noted in chart ALL: shellfish WILMER: R foot: pedal pulses 1/4, TG wnl, CFT brisk to all toes. There is a transverse post-surgical incision along the ball of the foot sub-metatarsals with hyperkeratotic borders, underlying superficial granular base, no deep probing, no purulent drainage, no fluctuance, no periwound erythema, no ascending cellulitis, no signs of active infection. Minimal tenderness to palpation. WBC: 2.8 Prior Wound Cx: MRSA, ESBL Imp: 47 year old poorly controlled DM F with R foot DFU 1. Excisional debridement R foot DFU to subcutaneous tissue, only superficial granular ulcer noted. 2. Bactroban + DSD R foot for local wound care. 3. NO surgical intervention required. Needs follow up in wound healing center and better job with glycemic control 4. Thank you for the consult. Elgin Hurst DPM
--- NOTE | 2017-08-20 14:05 | PN ---
[facility] Progress Note Note: Patient was transferred to ED of [facility] for further stabilization due to confusion,agitation,elevated ammonia level.See notes for details.
[2017-08-20] MEDS ORDERED: INSULIN SLIDING SCALE (NOVOLOG) 1 VIAL SQ SCH (14:16)
[2017-08-20 15:25] VITALS: BP 146/85; PULSE 98; TEMP 97.9
[2017-08-20] MEDS ORDERED: NAPH,MB-DB/K PH,MBDB POWDER PACKET PO ONE (18:10)
--- NOTE | 2017-08-20 18:12 | PN ---
Physical Exam: SUBJECTIVE: Patient seen and examined. Says she feels ok and that there is nothing wrong with her. She said she might leave tonight because she isn't supposed to be here. She denies headache, chest pain, Lower extremity pain, nausea, and vomiting. OBJECTIVE: Vital Signs Period Temp Pulse Resp BP Sys/Resendez Pulse Ox Last 24 Hr 97.9 F-99.3 F 82-98 18-20 116-146/72-86 98-100 GENERAL: The patient is awake, alert, and fully oriented, in no acute distress. HEAD: Normal with no signs of trauma. EYES: PERRL, extraocular movements intact, sclera anicteric, conjunctiva clear. ENT: oropharynx clear without exudates, moist mucous membranes. NECK: supple. LUNGS: Breath sounds equal, clear to auscultation bilaterally, no wheezes, no crackles, no accessory muscle use. HEART: Regular rate and rhythm, S1, S2 without murmur, rub or gallop. ABDOMEN: Soft, nontender, nondistended, normoactive bowel sounds, no guarding, no rebound, no hepatosplenomegaly, no masses. EXTREMITIES: 2+ pulses, warm, well-perfused, no edema. NEUROLOGICAL: Cranial nerves II through XII grossly intact. Normal speech, gait not observed. SKIN: Right foot: Nontender, Dry, right plantar ulcer, pedal pulses 1/4. Ulceration between 4th and 5th digit. Laboratory Results - last 24 hr 08/19/17 08/20/17 08/20/17 21:21 06:20 07:00 WBC RBC Hgb Hct MCV MCH MCHC RDW Plt Count MPV PT with INR INR PTT (Actin FS) 28.7 D Sodium Potassium Chloride Carbon Dioxide Anion Gap BUN Creatinine Creat Clearance w eGFR POC Glucometer 422 297 Random Glucose Calcium Phosphorus Magnesium Total Bilirubin AST ALT Alkaline Phosphatase Ammonia Total Protein Albumin 08/20/17 08/20/17 08/20/17 07:00 07:00 07:00 WBC 2.8 L D RBC 4.13 Hgb 11.6 Hct 35.0 MCV 84.8 MCH 28.1 MCHC 33.2 RDW 17.2 H Plt Count 156 MPV 8.2 PT with INR 12.40 H INR 1.12 PTT (Actin FS) Sodium 141 Potassium 3.9 Chloride 111 H Carbon Dioxide 19 L Anion Gap 11 BUN 11 D Creatinine 0.4 L D Creat Clearance w eGFR > 60 POC Glucometer Random Glucose 259 H D Calcium 8.1 L Phosphorus 2.2 L D Magnesium 1.8 Total Bilirubin 0.5 AST 57 H ALT 48 Alkaline Phosphatase 178 H D Ammonia Total Protein 6.2 L D Albumin 2.2 L 08/20/17 08/20/17 07:00 12:04 WBC RBC Hgb Hct MCV MCH MCHC RDW Plt Count MPV PT with INR INR PTT (Actin FS) Sodium Potassium Chloride Carbon Dioxide Anion Gap BUN Creatinine Creat Clearance w eGFR POC Glucometer 363 Random Glucose Calcium Phosphorus Magnesium Total Bilirubin AST ALT Alkaline Phosphatase Ammonia 86.1 H Total Protein Albumin Active Medications Generic Name Dose Route Start Last Admin Trade Name Freq PRN Reason Stop Dose Admin Enoxaparin Sodium 40 mg 08/19/17 10:00 08/20/17 09:14 Lovenox - SQ 40 mg DAILY SIRIA Administration Gabapentin 400 mg 08/19/17 14:00 08/20/17 14:36 Neurontin - PO 400 mg TID SIRIA Administration Sodium Chloride 1,000 mls @ 75 mls/hr 08/20/17 09:30 08/20/17 12:18 Normal Saline - IV 75 mls/hr ASDIR SIRIA Administration Insulin Aspart 1 vial 08/20/17 14:16 08/20/17 17:52 Novolog Vial Sliding Scale - SQ 12 unit TIDAC SIRIA Administration Protocol Insulin Detemir 40 units 08/19/17 22:00 08/19/17 21:23 Levemir Vial SQ 40 units HS SIRIA Administration Lactulose 20 gm 08/19/17 10:00 08/20/17 09:14 Cephulac (Oral Use) PO 20 gm BID SIRIA Administration Lisinopril 20 mg 08/19/17 10:00 08/20/17 09:14 Prinivil PO 20 mg DAILY SIRIA Administration Pregabalin 150 mg 08/19/17 22:00 08/19/17 21:26 Lyrica - PO 150 mg HS SIRIA Administration Ranitidine HCl 150 mg 08/19/17 10:00 08/20/17 09:14 Zantac - PO 150 mg BID SIRIA Administration Thiamine HCl 100 mg 08/19/17 22:00 08/19/17 21:27 Vitamin B1 - PO 100 mg HS SIRIA Administration Trazodone HCl 200 mg 08/19/17 22:00 Desyrel - PO HS [facility] ASSESSMENT/PLAN: 47 yo F h/o cocaine and alcohol abuse, HTN, GERD, liver cirrhosis, pancreatitis and IDDM type 1 admitted to med-surg inpatient service for altered mental status and was found to have hyperglycemia and a diabetic foot ulcer on right foot. Hyperglycemia: -secondary to Type 1 diabetes, non-compliant patient -Uses aunts insulin at home -Continue Levemir 40 UNITS HS -Novolog SS -297 last glucose reading Diabetic Right Foot ulcer: -ordered MRI to r/o osteomyelitis, patient refused -had previous admission for osteomyelitis workup but left AMA, MRI after discharge was recommended. -Excisional debridement per podiatry -Bactroban + DSD R foot for local wound care No surgical intervention required. Needs follow up in wound healing center and better job with glycemic control as per Podiatry Hepatic Encephalopathy -resolved -Ammonia level 86 -Continue Lactulose 20 TID FEN: IV FLUIDS NS 125cc/hour Electrolytes WNL Diabetic Diet DVT Prophylaxis: -Lovenox 40mg Patient said she wanted to leave AMA. Had a long discussion about the risks of leaving considering her medical conditions. I spoke and educated the patient about the consequences of uncontrolled diabetes and the possible development of DKA and possible . I also spoke to the patient about the possibility have having osteomyelitis and the complications and risks of it, including sepsis and possible . After a long thorough discussion, patient refused the MRI and said she she needs to go home. Visit type - Emergency Visit Emergency Visit: Yes ED Registration Date: 08/19/17 Care time: The patient presented to the Emergency Department on the above date and was hospitalized for further evaluation of their emergent condition. - New Patient This patient is new to me today: Yes Date on this admission: 08/20/17 - Critical Care Critical Care patient: No
--- NOTE | 2017-08-20 18:25 | PN ---
Teaching Attending Note Name of Resident: Jorge Tipton ATTENDING PHYSICIAN STATEMENT I saw and evaluated the patient. I reviewed the resident's note and discussed the case with the resident. I agree with the resident's findings and plan as documented. SUBJECTIVE: no fever or chills, feels better . had 3 BMs today . OBJECTIVE: NAD , AAOx3 CV : RRR. Lungs : CTAB Ext : no edema or erythema on legs . R foot with an ulcer between 4th and 5th toes, with granulation tissue seen, a non healing wound with dry blood on plantar foot at level of 3,4,5th toes. No asterexis ASSESSMENT AND PLAN: 47 Y/O lady with h/o ALcohol abuse, DDM I , non compliance , Liver cirrhosis, and HTN who presented from [facility] with AMS. She was found to have hepatic encephalopathy 1- Hepatic encephalopathy: resolved . Ran out of lactulose - Cont lactulose for a goal of 3-4 BMs /day 2- DM I, with severe hyperglycemia: due to non compliance , ran out of insuln at home - Increase dose of SSI - Cont levemir 40 HS , if needed can add AM levemir 3- Diabetic foot ulcer. - Ordered MRI to r/o OM . ( pt refused ) - follow cultures form debridment today - appreciate Dr. Hurst help 4- HTN: cont lisinopril
--- NOTE | 2017-08-20 19:46 | HOSP ---
Physical Examination Vital Signs: Vital Signs Temperature 97.9 F 08/20/17 15:00 Pulse Rate 98 H 08/20/17 15:00 Respiratory Rate 20 08/20/17 15:00 Blood Pressure 146/85 08/20/17 15:00 O2 Sat by Pulse Oximetry (%) 98 08/20/17 09:00 Labs: CBC, BMP 08/20/17 07:00 Hospitalist Encounter Assessment: Patient adamently refuses hospitalization and wants to leave against medical advice. I explained to the patient that leaving against medical advice is dangerous and can lead to worsening of her condition, infection, and even . I used lay terminology. I answered all questions and patient understands the risks and benefits of leaving against medical advice. She has the capacity to make her own decisions. Patient wants a bed at [facility], however without being medically clear she will not be able to receive a bed. Patient decided to leave AMA. Visit type - Emergency Visit Emergency Visit: Yes ED Registration Date: 08/19/17 Care time: The patient presented to the Emergency Department on the above date and was hospitalized for further evaluation of their emergent condition. - New Patient This patient is new to me today: Yes Date on this admission: 08/20/17 - Critical Care Critical Care patient: No
[2017-08-20 20:01] LABS: ANION GAP 9 (8-16); CALCIUM 8.3 mg/dL (8.5-10.1); CO2 21 mmol/L (21-32); CREATININE 0.6 mg/dL (0.55-1.02)
[2017-08-20 20:11] LABS: GLUCOSE,RANDOM 418 mg/dL (74-106)
[2017-08-20] MEDS ORDERED: MUPIROCIN CA 2% TOPICAL CREAM 15 GM TUBE TP SCH (22:00)
--- NOTE | 2017-08-22 16:14 | DS ---
Physical Exam: Unable to obtain history as patient left AMA HOSPITAL COURSE: Date of Admission:08/19/17 47 yo F h/o cocaine and alcohol abuse, HTN, GERD, liver cirrhosis, pancreatitis and IDDM type 1 admitted to med-surg inpatient service for altered mental status and was found to have hyperglycemia and a diabetic foot ulcer on right foot. She was being treated for hyperglycemia and worked up for possible osteomyelitis of the right foot. Patient refused MRI and further treatment and told the cylinder honer physician she wanted to leave. As per cylinder honer physician, he explained to the patient that leaving against medical advice is dangerous and can lead to worsening of her condition, infection, and even . Date of Discharge: 08/20/17 Minutes to complete discharge: 35 Discharge Summary Reason For Visit: HYPERGLYCEMIA,LIVER FAILURE Condition: Fair - Instructions Referrals: Mohsen Lima MD [Primary Care Provider] - Disposition: AGAINST MEDICAL ADVICE - Home Medications Comprehensive Discharge Medication List: Ambulatory Orders Insulin Sliding Scale [Novolog Vial Sliding Scale -] 0 units SQ TIDAC 05/30/16 Ibuprofen [Motrin -] 800 mg PO Q8H PRN #60 tablet 11/27/16 Lisinopril [Prinivil] 20 mg PO DAILY #30 tablet 11/27/16 Ranitidine [Zantac -] 150 mg PO BID #60 tablet 11/27/16 Gabapentin [Neurontin -] 400 mg PO TID #90 cap 04/09/17 Trazodone HCl [Desyrel -] 200 mg PO HS #30 tablet 04/09/17 Insulin (Levemir) [Levemir Flexpen -] 40 units SQ HS 04/30/17 Pregabalin [Lyrica] 150 mg PO HS 04/30/17 Thiamine HCl [B-1] 100 mg PO HS 04/30/17 This patient is new to me today: No Emergency Visit: Yes ED Registration Date: 08/19/17 Care time: The patient presented to the Emergency Department on the above date and was hospitalized for further evaluation of their emergent condition. Critical Care patient: No - Discharge Referral Referred to [facility] Med P.C.: No
== END 2017-08-20 19:54 | disposition left against medical advice (07) | DRG 622 ==
LOC: SUPCPDRO 23:21 → JER 23:21 → JERBED 08-19 06:59 → J8W 08-19 16:50
PROVIDERS: ADMIT Internal Medicine; ATTEND Internal Medicine
PROC: 0JBQ0ZZ Excision of Right Foot Subcutaneous Tissue and Fascia, Open Approach (ICD-10-PCS; principal; 2017-08-20)
DX: E10.621 Type 1 diabetes mellitus with foot ulcer (principal); K85.90 Acute pancreatitis without necrosis or infection, unspecified; I10 Essential (primary) hypertension; K21.9 Gastro-esophageal reflux disease without esophagitis; K74.69 Other cirrhosis of liver; E10.65 Type 1 diabetes mellitus with hyperglycemia; K72.90 Hepatic failure, unspecified without coma; F14.10 Cocaine abuse, uncomplicated; F10.10 Alcohol abuse, uncomplicated; G62.1 Alcoholic polyneuropathy; F19.94 Other psychoactive substance use, unspecified with psychoactive substance-induced mood disorder; Z79.4 Long term (current) use of insulin; Z91.14 Patient's other noncompliance with medication regimen; Z86.14 Personal history of Methicillin resistant Staphylococcus aureus infection
CPT/HCPCS: 36415; 80048; 80053; 80307; 81003; 81015; 82140; 83735; 83880; 84100; 85027; 85610; 85730; 93005; 93010; 93970-TC; 99284-25

== ENCOUNTER 2017-09-16 09:51 | Inpatient (IN) | payer OTHER ==
[2017-09-16 10:09] VITALS: BMI 28.3
--- NOTE | 2017-09-16 12:04 | HP ---
CIWA Score - CIWA Score Nausea/Vomitin (N/V/D) Muscle Tremors: 4-Moderate,w/Arms Extend Anxiety: 4-Mod. Anxious/Guarded Agitation: 3 Paroxysmal Sweats: 1-Minimal Palms Moist Orientation: 0-Oriented Tacttile Disturbances: 3-Moderate Itch/Numb/Burn Auditory Disturbances: 0-None Visual Disturbances: 0-None Headache: 0-None Present CIWA-Ar Total Score: 20 Admission ROS BHS - HPI Chief Complaint: DETOX TX FOR ALCOHOL DEPENDENCE Allergies/Adverse Reactions: Allergies Allergy/AdvReac Type Severity Reaction Status Date / Time No Known Drug Allergies Allergy Verified 09/16/17 10:42 SEAFOOD Allergy Severe Swelling Uncoded 09/16/17 10:42 History of Present Illness: 47 Y/O H/F WITH A HX OF ALCOHOL DEPENDENCE SEEKING DETOX TX. Exam Limitations: No Limitations - Ebola screening Have you traveled outside of the country in the last 21 days: No Have you had contact with anyone from an Ebola affected area: No Have you been sick,other than usual withdrawal symptoms: No Do you have a fever: No - Review of Systems Constitutional: Chills, Night Sweats, Changes in sleep EENT: reports: Blurred Vision Respiratory: reports: No Symptoms reported Cardiac: reports: No Symptoms Reported GI: reports: Diarrhea, Nausea, Poor Appetite, Vomiting : reports: No Symptoms Reported Musculoskeletal: reports: Back Pain, Joint Pain, Muscle Pain Integumentary: reports: Dryness Neuro: reports: Headache, Tremors, Unsteady Gait Endocrine: reports: No Symptoms Reported Hematology: reports: No Symptoms Reported Psychiatric: reports: Orientated x3, Anxious Other Systems: Reviewed and Negative Patient History - Patient Medical History Hx Anemia: No Hx Asthma: No Hx Chronic Obstructive Pulmonary Disease (COPD): No Hx Cancer: No Hx Cardiac Disorders: No Hx Congestive Heart Failure: No Hx Hypertension: Yes (LISINOPRIL 10 MG) Hx Hypercholesterolemia: No Hx Pacemaker: No HX Cerebrovascular Accident: No Hx Seizures: No Hx Dementia: No Hx Diabetes: Yes (IDDM) Hx Gastrointestinal Disorders: Yes (acid reflux) Hx Liver Disease: No Hx Genitourinary Disorders: No Hx Sexually Transmitted Disorders: No Hx Renal Disease (ESRD): No Hx Thyroid Disease: No Hx Human Immunodeficiency Virus (HIV): No (NEGATIVE HX) Hx Hepatitis C: No (NEGATIVE ) Hx Depression: Yes Hx Suicide Attempt: No (DENIES) Hx Bipolar Disorder: No Hx Schizophrenia: No - Patient Surgical History Past Surgical History: Yes Hx Neurologic Surgery: No Hx Cataract Extraction: No Hx Cardiac Surgery: No Hx Lung Surgery: No Hx Breast Surgery: No Hx Breast Biopsy: No Hx Abdominal Surgery: Yes (TUBAL LIGATION IN 2005) Hx Appendectomy: No Hx Cholecystectomy: No Hx Genitourinary Surgery: No Hx Section: No Hx Orthopedic Surgery: Yes (neck, 11/30/2015 (fall);SX COCYX DUE TO OSTEOMYLITIS - 2010) Other Surgical History: tubal ligation in 2005 Anesthesia Reaction: No - PPD History Previous Implant?: Yes Documented Results: Negative w/proof Implanted On Prior [facility] Admission?: Yes Date: 09/21/16 Results: 0 mm PPD to be Administered?: Yes - Reproductive History Patient is a Female of Child Bearing Age (11 -55 yrs old): Yes Last Menstrual Period: 08/13/17 Patient : No - Smoking Cessation Smoking history: Never smoked Have you smoked in the past 12 months: No Aproximately how many cigarettes per day: 0 Cigars Per Day: 0 Hx Chewing Tobacco Use: No Initiated information on smoking cessation: No - Substance & Tx. History Hx Alcohol Use: Yes (VODKA) Hx Substance Use: Yes (CRACK) Substance Use Type: Alcohol, Cocaine Hx Substance Use Treatment: Yes - Substances Abused Crack Route: Smoking Frequency: 1-2 times per week Amount used: $20 Age of first use: 46 Date of Last Use: 09/02/17 Alcohol-vodka Route: Oral Frequency: Daily Amount used: 1/2 liter Age of first use: 32 Date of Last Use: 09/15/17 Family Disease History - Family Disease History Family Disease History: Diabetes: Grandparent (alcohol), Father (alive: 68: HTN) , Mother (alive: 67), Other: Grandparent, Father, Mother Admission Physical Exam BHS - Vital Signs Vital Signs: Vital Signs - 24 hr 09/16/17 10:07 Temperature 97.5 F L Pulse Rate 93 H Respiratory 18 Rate Blood Pressure 144/90 - Physical General Appearance: Yes: Moderate Distress, Irritable, Anxious HEENTM: Yes: EOMI, Normocephalic, HIGINIO, Pharynx Normal Respiratory: Yes: Chest Non-Tender, Lungs Clear, Normal Breath Sounds, No Respiratory Distress Neck: Yes: Supple, Trachea in good position Breast: Yes: Breast Exam Deferred Cardiology: Yes: Regular Rhythm, Regular Rate, S1, S2 Abdominal: Yes: Normal Bowel Sounds, Non Tender, Soft Genitourinary: Yes: Other (N/C) Back: Yes: Within Normal Limits Musculoskeletal: Yes: full range of Motion, Gait Steady Extremities: Yes: Normal Range of Motion, Non-Tender 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: Yes: stacker driver II-XII NML intact, Fully Oriented, Alert, Motor Strength 5/5 Integumentary: Yes: Dry, Warm Lymphatic: Yes: Within Normal Limits - Diagnostic (1) Cocaine dependence in controlled environment Current Visit: Yes Status: Acute (2) Alcohol dependence with uncomplicated withdrawal Current Visit: Yes Status: Acute (3) GERD (gastroesophageal reflux disease) Current Visit: Yes Status: Chronic Qualifiers: Esophagitis presence: without esophagitis Qualified Code(s): K21.9 - Gastro-esophageal reflux disease without esophagitis; K21.9 - Gastro- esophageal reflux disease without esophagitis; K21.9 - Gastro-esophageal reflux disease without esophagitis (4) Hypertension Current Visit: Yes Status: Chronic Qualifiers: Hypertension type: essential hypertension Qualified Code(s): I10 - Essential (primary) hypertension; I10 - Essential (primary) hypertension; I10 - Essential (primary) hypertension (5) Peripheral neuropathy Current Visit: Yes Status: Chronic Qualifiers: Peripheral neuropathy type: polyneuropathy, alcohol-induced Qualified Code(s): G62.1 - Alcoholic polyneuropathy; G62.1 - Alcoholic polyneuropathy; G62.1 - Alcoholic polyneuropathy; G62.1 - Alcoholic polyneuropathy (6) Diabetes mellitus, insulin dependent (IDDM), uncontrolled Current Visit: Yes Status: Chronic Qualifiers: Diabetes mellitus complication status: without complication Qualified Code(s): E10.65 - Type 1 diabetes mellitus with hyperglycemia; E10.65 - Type 1 diabetes mellitus with hyperglycemia; E10.65 - Type 1 diabetes mellitus with hyperglycemia; E10.65 - Type 1 diabetes mellitus with hyperglycemia Cleared for Admission BHS - Detox or Rehab [facility] Level of Care: Medically Managed Detox Regimen/Protocol: Librium [facility] Breath Alcohol Content Breath Alcohol Content: 0 Urine Pregancy Test - Result Urine Test Results: Negative- NO Line Present Urine Drug Screen - Results Drug Screen Negative: Yes
[2017-09-16] MEDS ORDERED: IBUPROFEN 400 MG TABLET (FP) PO PRN (12:06)
[2017-09-16] MEDS ORDERED: MAGNESIUM HYDROX 2400MG/30ML ORAL SUSPENSION 30 ML CUP PO PRN (12:06)
[2017-09-16] MEDS ORDERED: guaiFENesin/D-METHORPHAN HB 10 ML UNIT-DOSE CUPS PO PRN (12:06)
[2017-09-16] MEDS ORDERED: chlordiazePOXIDE HCL 25 MG CAPSULE PO PRN (12:06)
[2017-09-16] MEDS ORDERED: MENTHOL/PHENOL 1 EACH UD MM PRN (12:06)
[2017-09-16] MEDS ORDERED: diphenhydrAMINE HCL 50 MG CAPSULE PO PRN (12:06)
[2017-09-16] MEDS ORDERED: MAGNESIUM CITRATE 300 ML BOTTLE PO PRN (12:06)
[2017-09-16] MEDS ORDERED: ACETAMINOPHEN 325 MG TABLET (FP) PO PRN (12:06)
[2017-09-16] MEDS ORDERED: P-EPHED 60MG/TRIPROLIDI 2.5MG TABLET PO PRN (12:06)
[2017-09-16] MEDS ORDERED: hydrOXYzine PAMOATE 25 MG CAPSULE (FP) PO PRN (12:06)
[2017-09-16] MEDS ORDERED: chlordiazePOXIDE HCL 25 MG CAPSULE PO ONE (12:15)
[2017-09-16] MEDS ORDERED: LISINOPRIL 10 MG TABLET (FP) PO ONE (12:15)
[2017-09-16] MEDS: MAG HYDROX/AL HYDROX/SIMETH 30 ML UNIT-DOSE CUP PO PRN ×2 (13:31→21:52)
[2017-09-16] MEDS ORDERED: INSULIN REGULAR HUMAN 100 UNITS/ML *VIAL SQ ONE (14:25)
--- NOTE | 2017-09-16 14:28 | PN ---
S Progress Note Note: Received report from Shelby Bryant RN: BGM assessed at time of patient entry onto unit: 500. 10 units Regular Insulin X 1 STAT ordered. Mela Delaney NP
[2017-09-16] MEDS ORDERED: Insulin (LOG) Aspart 100 UNITS/ML VIAL SQ ONE (14:30)
[2017-09-16] MEDS ORDERED: INSULIN (NOVOLOG) ASPART 100 UNITS/ML 10ML VIAL ONE ×2 (14:38→17:06)
--- NOTE | 2017-09-16 15:40 | CONSULT ---
[facility] Psychiatric Consult - Data Date of interview: 09/16/17 Admission source: [facility] Identifying data: Readmission to [facility] for this 47 y/o female seeking detox treatment on for alcohol and cocaine (crack) dependence.Patient is single,a mother of six,homeless,unemployed,disabled and supported on [facility] benefits. Substance Abuse History: Confirmed by patient. Smoking Cessation. Smoking history: Never smoked. Have you smoked in the past 12 months: No. Aproximately how many cigarettes per day: 0. Cigars Per Day: 0. Hx Chewing Tobacco Use: No. Initiated information on smoking cessation: No. - Substance & Tx. History. Hx Alcohol Use: Yes (VODKA). Hx Substance Use: Yes (CRACK). Substance Use Type: Alcohol, Cocaine. Hx Substance Use Treatment: Yes. - Substances Abused. Crack. Route: Smoking. Frequency: 1-2 times per week. Amount used: $20. Age of first use: 46. Date of Last Use: 09/02/17. Alcohol-vodka. Route: Oral. Frequency: Daily. Amount used: 1/2 liter. Age of first use: 32. Date of Last Use: 09/15/17 Medical History: Hypertension,diabetes mellitus-type I,GERD,cirrhosis of the liver,peripheral neuropathy,osteomyelitis and tubal ligation (2005).Additional history of orthosurgery for fracture of neck from a fall (2014) and coccyx due to osteomyelitis (2010). Psychiatric History: First contact with Psychiatry (2003).Admitted to a hospital for sleep disorder ([place]).Used to be prescribed trazodone and zolpidem.Dropped out of treatment.No current OPD care.Hospitalized at [facility] (2016).Diagnosed with MDD.No history of suicide attempts. Physical/Sexual Abuse/Trauma History: No history of abuse. Additional Comment: Drug Screen is negative. Mental Status Exam - Mental Status Exam Alert and Oriented to: Time, Place, Person Cognitive Function: Good Patient Appearance: Well Groomed Mood: Suspicious, Nervous, Anxious Affect: Normal Range Patient Behavior: Appropriate, Cooperative Speech Pattern: Clear Voice Loudness: Normal Thought Process: Goal Oriented Thought Disorder: Not Present Hallucinations: Denies Suicidal Ideation: Denies Homicidal Ideation: Denies Insight/Judgement: Poor Sleep: Poorly, Difficulty falling asleep Appetite: Good Muscle strength/Tone: Normal Gait/Station: Normal Psychiatric Findings - Problem List ([place] 1, 2,3) (1) Alcohol dependence with uncomplicated withdrawal Current Visit: Yes Status: Acute (2) Cocaine dependence in controlled environment Current Visit: Yes Status: Acute (3) Nicotine dependence Current Visit: Yes Status: Acute (4) Substance induced mood disorder Current Visit: Yes Status: Acute (5) Diabetes mellitus, insulin dependent (IDDM), uncontrolled Current Visit: Yes Status: Chronic Qualifiers: Diabetes mellitus complication status: without complication Qualified Code(s): E10.65 - Type 1 diabetes mellitus with hyperglycemia; E10.65 - Type 1 diabetes mellitus with hyperglycemia; E10.65 - Type 1 diabetes mellitus with hyperglycemia; E10.65 - Type 1 diabetes mellitus with hyperglycemia (6) GERD (gastroesophageal reflux disease) Current Visit: Yes Status: Chronic Qualifiers: Esophagitis presence: without esophagitis Qualified Code(s): K21.9 - Gastro-esophageal reflux disease without esophagitis; K21.9 - Gastro- esophageal reflux disease without esophagitis; K21.9 - Gastro-esophageal reflux disease without esophagitis (7) Hypertension Current Visit: Yes Status: Chronic Qualifiers: Hypertension type: essential hypertension Qualified Code(s): I10 - Essential (primary) hypertension; I10 - Essential (primary) hypertension; I10 - Essential (primary) hypertension (8) Peripheral neuropathy Current Visit: Yes Status: Chronic Qualifiers: Peripheral neuropathy type: polyneuropathy, alcohol-induced Qualified Code(s): G62.1 - Alcoholic polyneuropathy; G62.1 - Alcoholic polyneuropathy; G62.1 - Alcoholic polyneuropathy; G62.1 - Alcoholic polyneuropathy (9) Diabetes Current Visit: No Status: Chronic (10) Insomnia Current Visit: Yes Status: Acute (11) Non compliance w medication regimen Current Visit: Yes Status: Chronic - Initial Treatment Plan Initial Treatment Plan: Psychoeducation.Detoxification.Medications : trazodone 100 mg po hs + remeron 15 mg po hs.Side effects/benefits are discussed with the patient.She agrees with this careplan.Observation.
[2017-09-16] MEDS ORDERED: INSULIN SLIDING SCALE (NOVOLOG) 1 VIAL SQ SCH (16:30)
[2017-09-16 16:46] LABS: URINE APPEARANCE CLOUDY; URINE BILIRUBIN NEGATIVE (NEGATIVE); URINE BLOOD 2+ (NEGATIVE); URINE COLOR LTYELLOW; URINE GLUCOSE (UA) 3+ (NEGATIVE); URINE KETONE TRACE (NEGATIVE); URINE NITRITE NEGATIVE (NEGATIVE); URINE PROTEIN NEGATIVE (NEGATIVE); URINE UROBILINOGEN NEGATIVE mg/dL (0.2-1.0)
[2017-09-16 17:01] LABS: URINE BACTERIA RARE /hpf (NONE SEEN); URINE MUCUS RARE; URINE RBC 28 /hpf (0-3); URINE WBC 104 /hpf (3-5); YEAST FEW
[2017-09-16] MEDS: chlordiazePOXIDE HCL 25 MG CAPSULE PO SCH ×2 (17:21→22:00)
[2017-09-16] MEDS: INSULIN SLIDING SCALE (NOVOLOG) 1 VIAL SQ SCH (17:22)
[2017-09-16 18:54] LABS: URINE LEUK ESTERASE 2+ (NEGATIVE)
[2017-09-16] MEDS: THIAMINE HCL 100 MG TABLET (FP) PO SCH (21:57)
[2017-09-16] MEDS: traZODone HCL 100 MG TABLET (FP) PO SCH (21:57)
[2017-09-16] MEDS: RANITIDINE HCL 150 MG TABLET (FP) PO SCH (21:57)
[2017-09-16] MEDS ORDERED: MIRTAZAPINE 15 MG TABLET (FP) PO SCH (22:00)
[2017-09-16] MEDS: INSULIN DETEMIR 100 UNITS/ML MDV SQ SCH (22:01)
[2017-09-17] MEDS: chlordiazePOXIDE HCL 25 MG CAPSULE PO SCH ×4 (08:12→22:19)
[2017-09-17] MEDS ORDERED: INSULIN (NOVOLOG) ASPART 100 UNITS/ML 10ML VIAL ONE ×2 (09:42→17:26)
[2017-09-17] MEDS: INSULIN SLIDING SCALE (NOVOLOG) 1 VIAL SQ SCH ×2 (09:46→17:44)
--- NOTE | 2017-09-17 09:47 | EKG ---
Test Reason : Blood Pressure : / mmHG Vent. Rate : 094 BPM Atrial Rate : 094 BPM P-R Int : 138 ms QRS Dur : 082 ms QT Int : 368 ms P-R-T Axes : 066 028 039 degrees QTc Int : 460 ms NORMAL SINUS RHYTHM POSSIBLE LEFT ATRIAL ENLARGEMENT BORDERLINE ECG WHEN COMPARED WITH ECG OF 19-AUG-2017 01:13, NO SIGNIFICANT CHANGE WAS FOUND Confirmed by BAIRON LATHAM MD ([id number]) on 09/17/2017 9:46:50 AM Referred By: Confirmed By:BAIRON LATHAM MD
[2017-09-17] MEDS: LISINOPRIL 20 MG TABLET (FP) PO SCH (11:09)
[2017-09-17] MEDS: PRENATAL VITAMINS W/ FOLIC ACID TABLET (FP) PO SCH (11:10)
[2017-09-17] MEDS: RANITIDINE HCL 150 MG TABLET (FP) PO SCH ×2 (11:10→22:19)
--- NOTE | 2017-09-17 13:32 | PN ---
[facility] CIWA - CIWA Score Nausea/Vomitin Muscle Tremors: 4-Moderate,w/Arms Extend Anxiety: 4-Mod. Anxious/Guarded Agitation: 4-Moderately Restless Paroxysmal Sweats: 3 Orientation: 0-Oriented Tacttile Disturbances: 0-None Auditory Disturbances: 0-None Visual Disturbances: 0-None Headache: 2-Mild CIWA-Ar Total Score: 20 S Progress Note (SOAP) Subjective: Anxious, sweating, chills, tremor, interrupted sleep Objective: 09/17/17 13:29 Last Vital Signs Temp Pulse Resp BP Pulse Ox 97.7 F 97 H 20 119/75 09/17/17 10:00 09/17/17 10:00 09/17/17 10:00 09/17/17 10:00 Laboratory Tests 09/16/17 09/16/17 09/16/17 11:03 14:10 15:30 POC Glucometer 487 500 Urine Color Ltyellow Urine Appearance Cloudy Urine pH 8.0 D Ur Specific [place] 1.015 Urine Protein Negative Urine Glucose (UA) 3+ H Urine Ketones Trace H Urine Blood 2+ H Urine Nitrite Negative Urine Bilirubin Negative Urine Urobilinogen Negative Ur Leukocyte Esterase 2+ H Urine RBC 28 Urine WBC 104 Ur Epithelial Cells Many Urine Bacteria Rare Urine Mucus Rare Urine Yeast Few 09/16/17 09/16/17 09/17/17 16:27 21:54 07:11 POC Glucometer 436 482 313 Urine Color Urine Appearance Urine pH Ur Specific [place] Urine Protein Urine Glucose (UA) Urine Ketones Urine Blood Urine Nitrite Urine Bilirubin Urine Urobilinogen Ur Leukocyte Esterase Urine RBC Urine WBC Ur Epithelial Cells Urine Bacteria Urine Mucus Urine Yeast 09/17/17 09:37 POC Glucometer 261 Urine Color Urine Appearance Urine pH Ur Specific [place] Urine Protein Urine Glucose (UA) Urine Ketones Urine Blood Urine Nitrite Urine Bilirubin Urine Urobilinogen Ur Leukocyte Esterase Urine RBC Urine WBC Ur Epithelial Cells Urine Bacteria Urine Mucus Urine Yeast UA noted: abnormal; Lab results from 08/2017 noted Assessment: 09/17/17 13:30 Withdrawal symptoms Noted with abnormal UA Plan: Continue detox; admission labs in AM (CBC, CMP) H/O DMT2 dx since age 14 as per patient, last took oral antidiabetic medication 10 years ago, takes lantus 40 units with humalog insulin sliding scale at home as per patient. Continue detemir 40 units sq qhs. FS glucose ac meal, novolog insulin sliding scale with coverage ac meal. Ordered for admission labs in AM. Abnormal UA: encouraged to drink lots of water, repeat UA.
[2017-09-17] MEDS ORDERED: INSULIN SLIDING SCALE (NOVOLOG) 1 VIAL SQ SCH ×2 (16:30→17:03)
[2017-09-17] MEDS: traZODone HCL 100 MG TABLET (FP) PO SCH (22:19)
[2017-09-17] MEDS: THIAMINE HCL 100 MG TABLET (FP) PO SCH (22:19)
[2017-09-17] MEDS: INSULIN DETEMIR 100 UNITS/ML MDV SQ SCH (23:13)
[2017-09-18] MEDS: chlordiazePOXIDE HCL 25 MG CAPSULE PO SCH ×2 (06:00→10:44)
[2017-09-18] MEDS: INSULIN SLIDING SCALE (NOVOLOG) 1 VIAL SQ SCH ×3 (07:06→17:36)
[2017-09-18] MEDS ORDERED: INSULIN (NOVOLOG) ASPART 100 UNITS/ML 10ML VIAL ONE ×3 (07:07→16:52)
[2017-09-18] MEDS: RANITIDINE HCL 150 MG TABLET (FP) PO SCH ×2 (10:44→22:37)
[2017-09-18] MEDS: PRENATAL VITAMINS W/ FOLIC ACID TABLET (FP) PO SCH (10:44)
[2017-09-18] MEDS: LISINOPRIL 20 MG TABLET (FP) PO SCH (10:44)
[2017-09-18 10:54] LABS: ALBUMIN 2.1 g/dl (3.4-5.0); ANION GAP 8 (8-16); CALCIUM 8.3 mg/dL (8.5-10.1); CO2 20 mmol/L (21-32); MCH 28.2 pg (25.7-33.7); MCHC 32.7 g/dl (32.0-36.0); MEAN CELL VOLUME 86.3 fl (80-96); MEAN PLT VOLUME 7.8 fl (7.5-11.1); PLATELET COUNT 157 K/MM3 (134-434); RDW 20.1 % (11.6-15.6); SGOT/AST 28 U/L (15-37); WHITE BLOOD COUNT 3.2 K/mm3 (4.0-10.0)
[2017-09-18 11:01] LABS: ALK PHOS 288 U/L (45-117); BILIRUBIN,TOTAL 0.3 mg/dL (0.2-1.0); CREATININE 0.5 mg/dL (0.55-1.02); SGPT/ALT 30 U/L (12-78); TOT PROT 6.2 g/dl (6.4-8.2)
[2017-09-18 11:11] LABS: GLUCOSE,RANDOM 359 mg/dL (74-106)
--- NOTE | 2017-09-18 11:28 | PN ---
[facility] CIWA - CIWA Score Nausea/Vomitin-No Nausea/No Vomiting Muscle Tremors: 4-Moderate,w/Arms Extend Anxiety: 3 Agitation: 4-Moderately Restless Paroxysmal Sweats: 3 Orientation: 0-Oriented Tacttile Disturbances: 0-None Auditory Disturbances: 0-None Visual Disturbances: 0-None Headache: 1-Very Mild CIWA-Ar Total Score: 15 BHS Progress Note (SOAP) Subjective: sweats shakes interrupted sleep agitation anxiety Objective: 09/18/17 11:24 Vital Signs Temperature 98.2 F 09/18/17 10:05 Pulse Rate 106 H 09/18/17 10:05 Respiratory Rate 16 09/18/17 10:05 Blood Pressure 115/75 09/18/17 10:05 O2 Sat by Pulse Oximetry (%) Laboratory Tests 09/16/17 09/16/17 09/16/17 11:03 14:10 15:30 WBC RBC Hgb Hct MCV MCH MCHC RDW Plt Count MPV Sodium Potassium Chloride Carbon Dioxide Anion Gap BUN Creatinine Creat Clearance w eGFR POC Glucometer 487 500 Random Glucose Calcium Total Bilirubin AST ALT Alkaline Phosphatase Total Protein Albumin Urine Color Ltyellow Urine Appearance Cloudy Urine pH 8.0 D Ur Specific [place] 1.015 Urine Protein Negative Urine Glucose (UA) 3+ H Urine Ketones Trace H Urine Blood 2+ H Urine Nitrite Negative Urine Bilirubin Negative Urine Urobilinogen Negative Ur Leukocyte Esterase 2+ H Urine RBC 28 Urine WBC 104 Ur Epithelial Cells Many Urine Bacteria Rare Urine Mucus Rare Urine Yeast Few 09/16/17 09/16/17 09/17/17 16:27 21:54 07:11 WBC RBC Hgb Hct MCV MCH MCHC RDW Plt Count MPV Sodium Potassium Chloride Carbon Dioxide Anion Gap BUN Creatinine Creat Clearance w eGFR POC Glucometer 436 482 313 Random Glucose Calcium Total Bilirubin AST ALT Alkaline Phosphatase Total Protein Albumin Urine Color Urine Appearance Urine pH Ur Specific [place] Urine Protein Urine Glucose (UA) Urine Ketones Urine Blood Urine Nitrite Urine Bilirubin Urine Urobilinogen Ur Leukocyte Esterase Urine RBC Urine WBC Ur Epithelial Cells Urine Bacteria Urine Mucus Urine Yeast 09/17/17 09/17/17 09/17/17 09:37 16:50 21:43 WBC RBC Hgb Hct MCV MCH MCHC RDW Plt Count MPV Sodium Potassium Chloride Carbon Dioxide Anion Gap BUN Creatinine Creat Clearance w eGFR POC Glucometer 261 > 600 531 Random Glucose Calcium Total Bilirubin AST ALT Alkaline Phosphatase Total Protein Albumin Urine Color Urine Appearance Urine pH Ur Specific [place] Urine Protein Urine Glucose (UA) Urine Ketones Urine Blood Urine Nitrite Urine Bilirubin Urine Urobilinogen Ur Leukocyte Esterase Urine RBC Urine WBC Ur Epithelial Cells Urine Bacteria Urine Mucus Urine Yeast 09/18/17 09/18/17 09/18/17 07:00 07:00 07:01 WBC 3.2 L RBC 4.05 Hgb 11.4 Hct 35.0 MCV 86.3 MCH 28.2 MCHC 32.7 RDW 20.1 H D Plt Count 157 MPV 7.8 Sodium 139 Potassium 3.9 Chloride 111 H Carbon Dioxide 20 L Anion Gap 8 BUN 9 D Creatinine 0.5 L Creat Clearance w eGFR > 60 POC Glucometer 341 Random Glucose 359 H* Calcium 8.3 L Total Bilirubin 0.3 D AST 28 D ALT 30 D Alkaline Phosphatase 288 H D Total Protein 6.2 L Albumin 2.1 L Urine Color Urine Appearance Urine pH Ur Specific [place] Urine Protein Urine Glucose (UA) Urine Ketones Urine Blood Urine Nitrite Urine Bilirubin Urine Urobilinogen Ur Leukocyte Esterase Urine RBC Urine WBC Ur Epithelial Cells Urine Bacteria Urine Mucus Urine Yeast aaox3 ambulating no acute distress monitor glucose Assessment: 09/18/17 11:27 withdrawal sx Plan: continue detox increase fluids monitor glucose level
[2017-09-18] MEDS ORDERED: INSULIN (NOVOLOG) ASPART 100 UNITS/ML 10ML VIAL SQ ONE (12:07)
[2017-09-18] MEDS: LOPERAMIDE HCL 2 MG CAPSULE PO PRN (13:02)
[2017-09-18] MEDS: chlordiazePOXIDE 5 MG CAPSULE PO SCH ×2 (17:33→22:37)
[2017-09-18] MEDS: traZODone HCL 100 MG TABLET (FP) PO SCH (22:36)
[2017-09-18] MEDS: INSULIN DETEMIR 100 UNITS/ML MDV SQ SCH (22:37)
[2017-09-18] MEDS: THIAMINE HCL 100 MG TABLET (FP) PO SCH (22:37)
[2017-09-19] MEDS: chlordiazePOXIDE 5 MG CAPSULE PO SCH ×2 (06:05→12:04)
[2017-09-19] MEDS ORDERED: INSULIN (NOVOLOG) ASPART 100 UNITS/ML 10ML VIAL ONE ×3 (08:12→16:36)
[2017-09-19] MEDS: INSULIN SLIDING SCALE (NOVOLOG) 1 VIAL SQ SCH ×3 (08:14→16:54)
[2017-09-19] MEDS: LISINOPRIL 20 MG TABLET (FP) PO SCH ×2 (12:07→12:13)
[2017-09-19] MEDS: RANITIDINE HCL 150 MG TABLET (FP) PO SCH ×3 (12:07→22:37)
[2017-09-19] MEDS: PRENATAL VITAMINS W/ FOLIC ACID TABLET (FP) PO SCH ×2 (12:07→12:15)
--- NOTE | 2017-09-19 12:31 | PN ---
BHS Progress Note (SOAP) Subjective: sleepy sweats Objective: 09/19/17 12:29 Vital Signs Temperature 98.6 F 09/19/17 07:41 Pulse Rate 87 09/19/17 07:41 Respiratory Rate 18 09/19/17 07:41 Blood Pressure 98/58 09/19/17 07:41 O2 Sat by Pulse Oximetry (%) aaox3 lying in bed no acute distress Assessment: 09/19/17 12:30 withdrawal sx Plan: hold all sedating medication encourage increase fluids d/c in the am if patient is more awake tomorrow.
[2017-09-19] MEDS ORDERED: chlordiazePOXIDE HCL 10 MG CAPSULE PO SCH (17:00)
[2017-09-19] MEDS ORDERED: INSULIN DETEMIR 100 UNITS/ML MDV SQ ONE (22:32)
[2017-09-19] MEDS: THIAMINE HCL 100 MG TABLET (FP) PO SCH (22:37)
[2017-09-19] MEDS: INSULIN DETEMIR 100 UNITS/ML MDV SQ SCH (22:37)
[2017-09-20] MEDS: INSULIN SLIDING SCALE (NOVOLOG) 1 VIAL SQ SCH ×4 (07:15→22:33)
[2017-09-20] MEDS ORDERED: INSULIN (NOVOLOG) ASPART 100 UNITS/ML 10ML VIAL ONE ×4 (07:15→22:08)
--- NOTE | 2017-09-20 09:46 | DS ---
[facility] Detox Discharge Summary Admission Date: 09/16/17 Discharge Date: 09/20/17 - History Present History: Alcohol Dependence, Cocaine Dependence Pertinent Past History: above - Physical Exam Results Vital Signs: Vital Signs Temperature 97.6 F 09/20/17 06:51 Pulse Rate 92 H 09/20/17 06:51 Respiratory Rate 18 09/20/17 06:51 Blood Pressure 123/90 09/20/17 06:51 O2 Sat by Pulse Oximetry (%) Pertinent Admission Physical Exam Findings: admitted in withdrawal medically stable for dc detoc complete dc today Vital Signs - 24 hr 09/19/17 09/19/17 09/19/17 14:59 18:29 23:54 Temperature 97.6 F 98.6 F 98.6 F Pulse Rate 93 H 99 H 97 H Respiratory 18 20 20 Rate Blood Pressure 114/74 130/92 149/91 09/20/17 09/20/17 03:30 06:51 Temperature 97.6 F Pulse Rate 92 H Respiratory 17 18 Rate Blood Pressure 123/90 Laboratory Tests 09/16/17 09/16/17 09/16/17 11:03 14:10 15:30 WBC RBC Hgb Hct MCV MCH MCHC RDW Plt Count MPV Sodium Potassium Chloride Carbon Dioxide Anion Gap BUN Creatinine Creat Clearance w eGFR POC Glucometer 487 500 Random Glucose Calcium Total Bilirubin AST ALT Alkaline Phosphatase Total Protein Albumin Urine Color Ltyellow Urine Appearance Cloudy Urine pH 8.0 D Ur Specific [place] 1.015 Urine Protein Negative Urine Glucose (UA) 3+ H Urine Ketones Trace H Urine Blood 2+ H Urine Nitrite Negative Urine Bilirubin Negative Urine Urobilinogen Negative Ur Leukocyte Esterase 2+ H Urine RBC 28 Urine WBC 104 Ur Epithelial Cells Many Urine Bacteria Rare Urine Mucus Rare Urine Yeast Few RPR Titer 09/16/17 09/16/17 09/17/17 16:27 21:54 07:11 WBC RBC Hgb Hct MCV MCH MCHC RDW Plt Count MPV Sodium Potassium Chloride Carbon Dioxide Anion Gap BUN Creatinine Creat Clearance w eGFR POC Glucometer 436 482 313 Random Glucose Calcium Total Bilirubin AST ALT Alkaline Phosphatase Total Protein Albumin Urine Color Urine Appearance Urine pH Ur Specific [place] Urine Protein Urine Glucose (UA) Urine Ketones Urine Blood Urine Nitrite Urine Bilirubin Urine Urobilinogen Ur Leukocyte Esterase Urine RBC Urine WBC Ur Epithelial Cells Urine Bacteria Urine Mucus Urine Yeast RPR Titer 09/17/17 09/17/1709/17/17 09:37 16:50 21:43 WBC RBC Hgb Hct MCV MCH MCHC RDW Plt Count MPV Sodium Potassium Chloride Carbon Dioxide Anion Gap BUN Creatinine Creat Clearance w eGFR POC Glucometer 261 > 600 531 Random Glucose Calcium Total Bilirubin AST ALT Alkaline Phosphatase Total Protein Albumin Urine Color Urine Appearance Urine pH Ur Specific [place] Urine Protein Urine Glucose (UA) Urine Ketones Urine Blood Urine Nitrite Urine Bilirubin Urine Urobilinogen Ur Leukocyte Esterase Urine RBC Urine WBC Ur Epithelial Cells Urine Bacteria Urine Mucus Urine Yeast RPR Titer 09/18/17 09/18/17 09/18/17 07:00 07:00 07:00 WBC 3.2 L RBC 4.05 Hgb 11.4 Hct 35.0 MCV 86.3 MCH 28.2 MCHC 32.7 RDW 20.1 H D Plt Count 157 MPV 7.8 Sodium 139 Potassium 3.9 Chloride 111 H Carbon Dioxide 20 L Anion Gap 8 BUN 9 D Creatinine 0.5 L Creat Clearance w eGFR > 60 POC Glucometer Random Glucose 359 H* Calcium 8.3 L Total Bilirubin 0.3 D AST 28 D ALT 30 D Alkaline Phosphatase 288 H D Total Protein 6.2 L Albumin 2.1 L Urine Color Urine Appearance Urine pH Ur Specific [place] Urine Protein Urine Glucose (UA) Urine Ketones Urine Blood Urine Nitrite Urine Bilirubin Urine Urobilinogen Ur Leukocyte Esterase Urine RBC Urine WBC Ur Epithelial Cells Urine Bacteria Urine Mucus Urine Yeast RPR Titer Nonreactive 09/18/17 09/18/17 09/18/17 07:01 11:56 16:36 WBC RBC Hgb Hct MCV MCH MCHC RDW Plt Count MPV Sodium Potassium Chloride Carbon Dioxide Anion Gap BUN Creatinine Creat Clearance w eGFR POC Glucometer 341 518 475 Random Glucose Calcium Total Bilirubin AST ALT Alkaline Phosphatase Total Protein Albumin Urine Color Urine Appearance Urine pH Ur Specific [place] Urine Protein Urine Glucose (UA) Urine Ketones Urine Blood Urine Nitrite Urine Bilirubin Urine Urobilinogen Ur Leukocyte Esterase Urine RBC Urine WBC Ur Epithelial Cells Urine Bacteria Urine Mucus Urine Yeast RPR Titer 09/18/17 09/19/17 09/19/17 22:00 06:52 12:01 WBC RBC Hgb Hct MCV MCH MCHC RDW Plt Count MPV Sodium Potassium Chloride Carbon Dioxide Anion Gap BUN Creatinine Creat Clearance w eGFR POC Glucometer 464 275 200 Random Glucose Calcium Total Bilirubin AST ALT Alkaline Phosphatase Total Protein Albumin Urine Color Urine Appearance Urine pH Ur Specific [place] Urine Protein Urine Glucose (UA) Urine Ketones Urine Blood Urine Nitrite Urine Bilirubin Urine Urobilinogen Ur Leukocyte Esterase Urine RBC Urine WBC Ur Epithelial Cells Urine Bacteria Urine Mucus Urine Yeast RPR Titer 09/20/17 06:34 WBC RBC Hgb Hct MCV MCH MCHC RDW Plt Count MPV Sodium Potassium Chloride Carbon Dioxide Anion Gap BUN Creatinine Creat Clearance w eGFR POC Glucometer 305 Random Glucose Calcium Total Bilirubin AST ALT Alkaline Phosphatase Total Protein Albumin Urine Color Urine Appearance Urine pH Ur Specific [place] Urine Protein Urine Glucose (UA) Urine Ketones Urine Blood Urine Nitrite Urine Bilirubin Urine Urobilinogen Ur Leukocyte Esterase Urine RBC Urine WBC Ur Epithelial Cells Urine Bacteria Urine Mucus Urine Yeast RPR Titer - Treatment Hospital Course: Detox Protocol Followed, Detoxed Safely, Responded well, Discharged Condition Good, Rehab Referral Accepted - Medication Discharge Medications: Ambulatory Orders Insulin Sliding Scale [Novolog Vial Sliding Scale -] 0 units SQ TIDAC 05/30/16 Ibuprofen [Motrin -] 800 mg PO Q8H PRN #60 tablet 11/27/16 Lisinopril [Prinivil] 20 mg PO DAILY #30 tablet 11/27/16 Ranitidine [Zantac -] 150 mg PO BID #60 tablet 11/27/16 Gabapentin [Neurontin -] 400 mg PO TID #90 cap 04/09/17 Trazodone HCl [Desyrel -] 200 mg PO HS #30 tablet 04/09/17 Insulin (Levemir) [Levemir Flexpen -] 40 units SQ HS 04/30/17 Pregabalin [Lyrica] 150 mg PO HS 04/30/17 Trazodone HCl [Desyrel -] 100 mg PO HS #30 tablet 09/16/17 - Diagnosis (1) Insomnia Current Visit: Yes Status: Acute Qualifiers: Insomnia type: primary Qualified Code(s): F51.01 - Primary insomnia ; F51.01 - Primary insomnia (2) Substance induced mood disorder Current Visit: Yes Status: Acute (3) Alcohol dependence with uncomplicated withdrawal Current Visit: Yes Status: Chronic (4) Cocaine dependence in controlled environment Current Visit: Yes Status: Chronic (5) Diabetes mellitus, insulin dependent (IDDM), uncontrolled Current Visit: Yes Status: Chronic Qualifiers: Diabetes mellitus complication status: without complication Qualified Code(s): E10.65 - Type 1 diabetes mellitus with hyperglycemia; E10.65 - Type 1 diabetes mellitus with hyperglycemia; E10.65 - Type 1 diabetes mellitus with hyperglycemia; E10.65 - Type 1 diabetes mellitus with hyperglycemia (6) GERD (gastroesophageal reflux disease) Current Visit: Yes Status: Chronic Qualifiers: Esophagitis presence: without esophagitis Qualified Code(s): K21.9 - Gastro-esophageal reflux disease without esophagitis; K21.9 - Gastro- esophageal reflux disease without esophagitis; K21.9 - Gastro-esophageal reflux disease without esophagitis (7) Hyperglycemia Current Visit: Yes Status: Chronic (8) Hypertension Current Visit: Yes Status: Chronic Qualifiers: Hypertension type: essential hypertension Qualified Code(s): I10 - Essential (primary) hypertension; I10 - Essential (primary) hypertension; I10 - Essential (primary) hypertension (9) Nicotine dependence Current Visit: Yes Status: Chronic Qualifiers: Nicotine product type: cigarettes Substance use status: uncomplicated Qualified Code(s): F17.210 - Nicotine dependence, cigarettes, uncomplicated; F17.210 - Nicotine dependence, cigarettes, uncomplicated (10) Non compliance w medication regimen Current Visit: Yes Status: Chronic (11) Peripheral neuropathy Current Visit: Yes Status: Chronic Qualifiers: Peripheral neuropathy type: polyneuropathy, alcohol-induced Qualified Code(s): G62.1 - Alcoholic polyneuropathy; G62.1 - Alcoholic polyneuropathy; G62.1 - Alcoholic polyneuropathy; G62.1 - Alcoholic polyneuropathy (12) Abdominal pain Current Visit: Yes Status: Chronic (13) Cellulitis Current Visit: No Status: Acute Qualifiers: Site of cellulitis: extremity Site of cellulitis of extremity: lower extremity Laterality: right Qualified Code(s): L03.115 - Cellulitis of right lower limb; L03.115 - Cellulitis of right lower limb (14) Elevated lipase Current Visit: No Status: Acute (15) Polyneuropathy Current Visit: Yes Status: Chronic (16) Substance abuse Current Visit: Yes Status: Acute (17) Alcohol dependence Current Visit: Yes Status: Acute (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 Current Visit: Yes Status: Chronic (19) Alcohol-induced mood disorder Current Visit: Yes Status: Chronic (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 left wrist Current Visit: No Status: Chronic Qualifiers: Encounter type: subsequent encounter Fracture healing: with routine healing Qualified Code(s): S62.102D - Fracture of unspecified carpal bone, left wrist, subsequent encounter for fracture with routine healing; S62.102D - Fracture of unspecified carpal bone, left wrist, subsequent encounter for fracture with routine healing (27) Insulin dependent diabetes mellitus Current Visit: Yes Status: Chronic (28) Liver failure Current Visit: No Status: Chronic - AMA Did Patient Leave Against Medical Advice: No
[2017-09-20] MEDS: PRENATAL VITAMINS W/ FOLIC ACID TABLET (FP) PO SCH (10:54)
[2017-09-20] MEDS: RANITIDINE HCL 150 MG TABLET (FP) PO SCH ×2 (10:55→22:34)
[2017-09-20] MEDS: LISINOPRIL 20 MG TABLET (FP) PO SCH (10:55)
--- NOTE | 2017-09-20 12:05 | PN ---
[facility] Progress Note (SOAP) Subjective: dc discontinued pt remains with poorly controlled fsg denies dietary changes rehab bed pending per funeral planning counselor staff Objective: 09/20/17 12:04 Vital Signs - 24 hr 09/19/17 09/19/17 09/19/17 14:59 18:29 23:54 Temperature 97.6 F 98.6 F 98.6 F Pulse Rate 93 H 99 H 97 H Respiratory 18 20 20 Rate Blood Pressure 114/74 130/92 149/91 09/20/17 09/20/17 09/20/17 03:30 06:51 11:26 Temperature 97.6 F 97.5 F L Pulse Rate 92 H 99 H Respiratory 17 18 18 Rate Blood Pressure 123/90 117/74 Laboratory Results - last 24 hr 09/19/17 09/20/17 12:01 06:34 POC Glucometer 200 305 Assessment: 09/20/17 12:04 dm poor ctrl hyperglycemia Plan: increase novolog and standing observe increase hydrtatrion
[2017-09-20] MEDS: INSULIN DETEMIR 100 UNITS/ML MDV SQ SCH (22:32)
[2017-09-20] MEDS: THIAMINE HCL 100 MG TABLET (FP) PO SCH (22:33)
[2017-09-21] MEDS ORDERED: INSULIN (NOVOLOG) ASPART 100 UNITS/ML 10ML VIAL ONE ×4 (07:42→22:40)
[2017-09-21] MEDS: INSULIN SLIDING SCALE (NOVOLOG) 1 VIAL SQ SCH ×4 (07:50→22:45)
--- NOTE | 2017-09-21 10:26 | PN ---
[facility] Progress Note (SOAP) Subjective: Pt. is going to [facility], however they don't admit on weekends. Objective: 09/21/17 10:25 Vital Signs 09/21/17 09/21/17 03:30 06:00 Temperature 97.9 F Pulse Rate 91 H Respiratory 18 18 Rate Blood Pressure 125/76 Assessment: 09/21/17 10:25 Alcohol Dependence Plan: D/C in AM
[2017-09-21] MEDS: LISINOPRIL 20 MG TABLET (FP) PO SCH (10:28)
[2017-09-21] MEDS: RANITIDINE HCL 150 MG TABLET (FP) PO SCH ×2 (10:28→22:14)
[2017-09-21] MEDS: PRENATAL VITAMINS W/ FOLIC ACID TABLET (FP) PO SCH (10:28)
[2017-09-21] MEDS: LOPERAMIDE HCL 2 MG CAPSULE PO PRN (15:23)
[2017-09-21] MEDS ORDERED: INSULIN DETEMIR 100 UNITS/ML MDV SQ ONE (16:58)
[2017-09-21] MEDS: traZODone HCL 100 MG TABLET (FP) PO SCH (22:14)
[2017-09-21] MEDS: THIAMINE HCL 100 MG TABLET (FP) PO SCH (22:14)
[2017-09-21] MEDS: INSULIN DETEMIR 100 UNITS/ML MDV SQ SCH (22:16)
[2017-09-22] MEDS ORDERED: INSULIN (NOVOLOG) ASPART 100 UNITS/ML 10ML VIAL ONE ×2 (07:20→12:08)
[2017-09-22] MEDS: INSULIN SLIDING SCALE (NOVOLOG) 1 VIAL SQ SCH ×2 (07:50→13:00)
--- NOTE | 2017-09-22 08:59 | DS ---
[facility] Detox Discharge Summary Admission Date: 09/16/17 Discharge Date: 09/22/17 - History Present History: Alcohol Dependence, Cocaine Dependence - Physical Exam Results Vital Signs: Vital Signs Temperature 98.2 F 09/22/17 06:32 Pulse Rate 90 09/22/17 06:32 Respiratory Rate 20 09/22/17 06:32 Blood Pressure 128/75 09/22/17 06:32 O2 Sat by Pulse Oximetry (%) - Treatment Hospital Course: Detox Protocol Followed, Detoxed Safely, Responded well, Discharged Condition Good, Rehab Referral Accepted - Medication Discharge Medications: Ambulatory Orders Insulin Sliding Scale [Novolog Vial Sliding Scale -] 0 units SQ TIDAC 05/30/16 Ibuprofen [Motrin -] 800 mg PO Q8H PRN #60 tablet 11/27/16 Lisinopril [Prinivil] 20 mg PO DAILY #30 tablet 11/27/16 Ranitidine [Zantac -] 150 mg PO BID #60 tablet 11/27/16 Gabapentin [Neurontin -] 400 mg PO TID #90 cap 04/09/17 Trazodone HCl [Desyrel -] 200 mg PO HS #30 tablet 04/09/17 Insulin (Levemir) [Levemir Flexpen -] 40 units SQ HS 04/30/17 Pregabalin [Lyrica] 150 mg PO HS 04/30/17 Trazodone HCl [Desyrel -] 100 mg PO HS #30 tablet 09/16/17 - Diagnosis (1) Alcohol dependence with uncomplicated withdrawal Current Visit: Yes Status: Chronic (2) Insomnia Current Visit: Yes Status: Chronic Qualifiers: Insomnia type: primary Qualified Code(s): F51.01 - Primary insomnia ; F51.01 - Primary insomnia (3) Nicotine dependence Current Visit: Yes Status: Chronic Qualifiers: Nicotine product type: cigarettes Substance use status: uncomplicated Qualified Code(s): F17.210 - Nicotine dependence, cigarettes, uncomplicated; F17.210 - Nicotine dependence, cigarettes, uncomplicated (4) Diabetes mellitus, insulin dependent (IDDM), uncontrolled Current Visit: Yes Status: Chronic Qualifiers: Diabetes mellitus complication status: without complication Qualified Code(s): E10.65 - Type 1 diabetes mellitus with hyperglycemia; E10.65 - Type 1 diabetes mellitus with hyperglycemia; E10.65 - Type 1 diabetes mellitus with hyperglycemia; E10.65 - Type 1 diabetes mellitus with hyperglycemia (5) GERD (gastroesophageal reflux disease) Current Visit: Yes Status: Chronic Qualifiers: Esophagitis presence: without esophagitis Qualified Code(s): K21.9 - Gastro-esophageal reflux disease without esophagitis; K21.9 - Gastro- esophageal reflux disease without esophagitis; K21.9 - Gastro-esophageal reflux disease without esophagitis (6) Hypertension Current Visit: Yes Status: Chronic Qualifiers: Hypertension type: essential hypertension Qualified Code(s): I10 - Essential (primary) hypertension; I10 - Essential (primary) hypertension; I10 - Essential (primary) hypertension - AMA Did Patient Leave Against Medical Advice: No
[2017-09-22] MEDS: RANITIDINE HCL 150 MG TABLET (FP) PO SCH (10:12)
[2017-09-22] MEDS: PRENATAL VITAMINS W/ FOLIC ACID TABLET (FP) PO SCH (10:12)
[2017-09-22] MEDS: LISINOPRIL 20 MG TABLET (FP) PO SCH (10:17)
[2017-09-22] MEDS: MAG HYDROX/AL HYDROX/SIMETH 30 ML UNIT-DOSE CUP PO PRN (10:39)
[2017-09-22 13:32] VITALS: BP 100/60; PULSE 97; TEMP 97.1
== END 2017-09-22 14:47 | disposition home or self-care (01) | DRG 897 ==
LOC: YASAS 09:51 → Y6N 11:52
PROVIDERS: ADMIT Internal Medicine; ATTEND Internal Medicine
PROC: HZ2ZZZZ Detoxification Services for Substance Abuse Treatment (ICD-10-PCS; principal; 2017-09-16)
DX: F10.230 Alcohol dependence with withdrawal, uncomplicated (principal); F14.20 Cocaine dependence, uncomplicated; L03.115 Cellulitis of right lower limb; F10.24 Alcohol dependence with alcohol-induced mood disorder; F10.282 Alcohol dependence with alcohol-induced sleep disorder; F17.210 Nicotine dependence, cigarettes, uncomplicated; F51.01 Primary insomnia; F19.24 Other psychoactive substance dependence with psychoactive substance-induced mood disorder; F32.9 Major depressive disorder, single episode, unspecified; E10.65 Type 1 diabetes mellitus with hyperglycemia; K21.9 Gastro-esophageal reflux disease without esophagitis; I10 Essential (primary) hypertension; G62.1 Alcoholic polyneuropathy; R10.9 Unspecified abdominal pain; K74.60 Unspecified cirrhosis of liver; R74.8 Abnormal levels of other serum enzymes; R82.90 Unspecified abnormal findings in urine; Z79.4 Long term (current) use of insulin; Z91.14 Patient's other noncompliance with medication regimen; Z91.013 Allergy to seafood
CPT/HCPCS: 36415; 80053; 81003; 81015; 85027; 86593; 93005; 93010

== ENCOUNTER 2017-10-20 08:15 | Inpatient (IN) | payer OTHER ==
[2017-10-20 09:46] VITALS: BMI 26.6
--- NOTE | 2017-10-20 12:09 | HP ---
CIWA Score - CIWA Score Nausea/Vomitin Muscle Tremors: 4-Moderate,w/Arms Extend Anxiety: 4-Mod. Anxious/Guarded Agitation: 4-Moderately Restless Paroxysmal Sweats: 1-Minimal Palms Moist Orientation: 0-Oriented Tacttile Disturbances: 3-Moderate Itch/Numb/Burn Auditory Disturbances: 0-None Visual Disturbances: 0-None Headache: 2-Mild CIWA-Ar Total Score: 24 Admission ROS [facility] - HPI Chief Complaint: DETOX TX FOR ALCOHOL WITHDRAWAL SX-NAUSEA/VOMITING,ANXIETY. Allergies/Adverse Reactions: Allergies Allergy/AdvReac Type Severity Reaction Status Date / Time fish derived Allergy Severe Swelling Verified 09/16/17 16:37 shellfish derived Allergy Severe Swelling Verified 10/20/17 10:33 No Known Drug Allergies Allergy Verified 10/20/17 10:33 SEAFOOD Allergy Severe Swelling Uncoded 10/20/17 10:33 History of Present Illness: 47 Y/O H/FEMALE WITH A HX OF ALCOHOL AND CRACK DEPENDENCE AND MULTIPLE TREATMENT EPISODE SEEKING DETOX [place] Exam Limitations: No Limitations - Ebola screening Have you traveled outside of the country in the last 21 days: No Have you had contact with anyone from an Ebola affected area: No Have you been sick,other than usual withdrawal symptoms: No - Review of Systems Constitutional: Chills, Loss of Appetite, Night Sweats, Changes in sleep, Unintentional Wgt. Loss EENT: reports: Tearing, Nose Congestion Respiratory: reports: No Symptoms reported Cardiac: reports: Lightheadedness GI: reports: Constipated, Nausea, Poor Appetite, Poor Fluid Intake, Vomiting, Abdominal cramping : reports: Burning, Dysuria, Frequency Musculoskeletal: reports: Back Pain, Joint Pain, Muscle Pain Integumentary: reports: Dryness, Rash (HEAD) Neuro: reports: Headache, Tremors, Unsteady Gait, Dizziness Endocrine: reports: No Symptoms Reported Hematology: reports: No Symptoms Reported Psychiatric: reports: Orientated x3, Agitated, Anxious Other Systems: Reviewed and Negative Patient History - Patient Medical History Hx Anemia: No Hx Asthma: No Hx Chronic Obstructive Pulmonary Disease (COPD): No Hx Cancer: No Hx Cardiac Disorders: No Hx Congestive Heart Failure: No Hx Hypertension: Yes (LISINOPRIL 10 MG DAILY) Hx Hypercholesterolemia: No Hx Pacemaker: No HX Cerebrovascular Accident: No Hx Seizures: No Hx Dementia: No Hx Diabetes: Yes (IDDM-INSULIN LANTUS & HUMOLOG) Hx Gastrointestinal Disorders: Yes (GERD-NEXIUM) Hx Liver Disease: No Hx Genitourinary Disorders: No Hx Sexually Transmitted Disorders: No Hx Renal Disease (ESRD): No Hx Thyroid Disease: No Hx Human Immunodeficiency Virus (HIV): No (NEGATIVE HX) Hx Hepatitis C: No (NEGATIVE ) Hx Depression: Yes (ON MED) Hx Suicide Attempt: No (DENIES) Hx Bipolar Disorder: No Hx Schizophrenia: No - Patient Surgical History Past Surgical History: Yes Hx Neurologic Surgery: No Hx Cataract Extraction: No Hx Cardiac Surgery: No Hx Lung Surgery: No Hx Breast Surgery: No Hx Breast Biopsy: No Hx Abdominal Surgery: Yes (TUBAL LIGATION IN 2005) Hx Appendectomy: No Hx Cholecystectomy: No Hx Genitourinary Surgery: No Hx Section: No Hx Orthopedic Surgery: Yes (neck, 11/30/2015 (fall);SX COCYX DUE TO OSTEOMYLITIS - 2010) Other Surgical History: tubal ligation in 2005 Anesthesia Reaction: No - PPD History Previous Implant?: Yes Implanted On Prior [facility] Admission?: Yes Date: 09/21/16 Results: 0 mm PPD to be Administered?: Yes - Reproductive History Patient is a Female of Child Bearing Age (11 -55 yrs old): Yes Last Menstrual Period: 10/20/17 Patient : No - Smoking Cessation Smoking history: Never smoked Have you smoked in the past 12 months: No Aproximately how many cigarettes per day: 0 Cigars Per Day: 0 Hx Chewing Tobacco Use: No Initiated information on smoking cessation: No - Substance & Tx. History Hx Alcohol Use: Yes (VODKA) Hx Substance Use: Yes (CRACK) Substance Use Type: Alcohol, Cocaine Hx Substance Use Treatment: Yes (LAST TX AT [facility] DETOX) - Substances Abused Alcohol Route: Oral Frequency: Daily Amount used: 1 liter vodka Age of first use: 26 Date of Last Use: 10/20/17 Crack Route: Smoking Frequency: Daily Amount used: $10 Age of first use: 45 Date of Last Use: 10/18/17 Family Disease History - Family Disease History Family Disease History: Diabetes: Grandparent (alcohol), Father (alive: 68: HTN) , Mother (alive: 67), Other: Grandparent, Father, Mother Admission Physical Exam S - Vital Signs Vital Signs: Vital Signs - 24 hr 10/20/17 09:20 Temperature 96.2 F L Pulse Rate 111 H Respiratory 20 Rate Blood Pressure 170/108 - Physical General Appearance: Yes: Severe Distress, Alcohol on Breath, Intoxicated, Irritable, Anxious HEENTM: Yes: EOMI, Normocephalic, HIGINIO, Pharynx Normal Respiratory: Yes: Chest Non-Tender, Lungs Clear, Normal Breath Sounds, No Respiratory Distress Neck: Yes: No masses,lesions,Nodules, Supple, Trachea in good position Breast: Yes: Breast Exam Deferred Cardiology: Yes: Regular Rhythm, S1, S2, Tachycardia Abdominal: Yes: Normal Bowel Sounds, Non Tender, Soft Genitourinary: Yes: Other (N/C) Extremities: Yes: Normal Range of Motion, Non-Tender 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: 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: 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 intact, Fully Oriented, Alert Integumentary: Yes: Dry, Warm Lymphatic: Yes: Within Normal Limits - Diagnostic (1) Alcohol dependence with uncomplicated withdrawal Current Visit: No Status: Acute (2) Cocaine dependence Current Visit: No Status: Acute Qualifiers: Substance use status: uncomplicated Qualified Code(s): F14.20 - Cocaine dependence, uncomplicated (3) Diabetes mellitus, insulin dependent (IDDM), uncontrolled Current Visit: No Status: Chronic Qualifiers: Diabetes mellitus complication status: without complication Qualified Code( s): E10.65 - Type 1 diabetes mellitus with hyperglycemia (4) GERD (gastroesophageal reflux disease) Current Visit: No Status: Chronic Qualifiers: Esophagitis presence: without esophagitis Qualified Code(s): K21.9 - Gastro -esophageal reflux disease without esophagitis (5) Hypertension Current Visit: Yes Status: Chronic Qualifiers: Hypertension type: essential hypertension Qualified Code(s): I10 - Essential (primary) hypertension (6) Polyneuropathy Current Visit: Yes Status: Chronic Cleared for Admission S - Detox or Rehab [facility] Level of Care: Medically Managed Detox Regimen/Protocol: Librium S Breath Alcohol Content Breath Alcohol Content: 0.054 Urine Pregancy Test - Result Urine Test Results: Negative- NO Line Present Urine Drug Screen - Results Drug Screen Negative: No Urine Drug Screen Results: DEEPAK-Cocaine
[2017-10-20] MEDS ORDERED: MAGNESIUM HYDROX 2400MG/30ML ORAL SUSPENSION 30 ML CUP PO PRN (12:22)
[2017-10-20] MEDS ORDERED: MENTHOL/PHENOL 1 EACH UD MM PRN (12:22)
[2017-10-20] MEDS ORDERED: P-EPHED 60MG/TRIPROLIDI 2.5MG TABLET PO PRN (12:22)
[2017-10-20] MEDS ORDERED: MAG HYDROX/AL HYDROX/SIMETH 30 ML UNIT-DOSE CUP PO PRN (12:22)
[2017-10-20] MEDS ORDERED: guaiFENesin/D-METHORPHAN HB 10 ML UNIT-DOSE CUPS PO PRN (12:22)
[2017-10-20] MEDS ORDERED: chlordiazePOXIDE HCL 25 MG CAPSULE PO PRN (12:22)
[2017-10-20] MEDS ORDERED: ACETAMINOPHEN 325 MG TABLET (FP) PO PRN (12:22)
[2017-10-20] MEDS ORDERED: MAGNESIUM CITRATE 300 ML BOTTLE PO PRN (12:22)
[2017-10-20] MEDS ORDERED: hydrOXYzine PAMOATE 25 MG CAPSULE (FP) PO PRN (12:22)
[2017-10-20] MEDS ORDERED: TRIMETHOBENZAMIDE HCL 200MG/2ML INJ IM PRN (12:33)
[2017-10-20] MEDS ORDERED: chlordiazePOXIDE HCL 25 MG CAPSULE PO ONE (12:37)
[2017-10-20] MEDS ORDERED: TRIMETHOBENZAMIDE HCL 200MG/2ML INJ IM ONE (12:42)
[2017-10-20] MEDS: LISINOPRIL 20 MG TABLET (FP) PO SCH (13:05)
[2017-10-20] MEDS: RANITIDINE HCL 150 MG TABLET (FP) PO SCH ×2 (13:05→22:37)
[2017-10-20] MEDS: INSULIN SLIDING SCALE (NOVOLOG) 1 VIAL SQ SCH ×3 (13:06→22:38)
[2017-10-20] MEDS ORDERED: INSULIN (NOVOLOG) ASPART 100 UNITS/ML 10ML VIAL ONE ×3 (13:06→21:37)
--- NOTE | 2017-10-20 13:31 | CONSULT ---
[facility] Psychiatric Consult - Data Date of interview: 10/20/17 Admission source: [facility] Identifying data: This is 47 years old female with no psychiatric hospitalization history intoxicated with: Alcohol, Crack, Substance Abuse History: - Smoking Cessation. Smoking history: Never smoked. Have you smoked in the past 12 months: No. Aproximately how many cigarettes per day: 0. Cigars Per Day: 0. Hx Chewing Tobacco Use: No. Initiated information on smoking cessation: No. - Substance & Tx. History. Hx Alcohol Use: Yes (VODKA). Hx Substance Use: Yes (CRACK). Substance Use Type: Alcohol, Cocaine. Hx Substance Use Treatment: Yes (LAST TX AT [facility]). - Substances Abused. Alcohol. Route: Oral. Frequency: Daily. Amount used: 1 liter vodka. Age of first use: 26. Date of Last Use: 10/20/17. Crack. Route: Smoking. Frequency: Daily. Amount used: $10. Age of first use: 45. Date of Last Use: 10/18/17 Medical History: DM, GERD, HTN,Polynewropathy Psychiatric History: Patient reports history of anxiety and depression, reports taking prior to admission: Trazodone 150mg po qhs. Remeron 30mg po qhs Physical/Sexual Abuse/Trauma History: Denies Additional Comment: Trazodone 150mg po qhs. Remeron 30mg po qhs Mental Status Exam - Mental Status Exam Alert and Oriented to: Person Cognitive Function: Fair Patient Appearance: Unkempt Mood: Sad Affect: Flat Patient Behavior: Sedated Speech Pattern: Delayed Voice Loudness: Mildly Soft/Quiet Thought Process: Circumstantial Thought Disorder: Being Controlled Hallucinations: Denies Suicidal Ideation: Denies Homicidal Ideation: Denies Insight/Judgement: Fair Sleep: Difficulty falling asleep Appetite: Fair Muscle strength/Tone: Mild Hypertonicity Gait/Station: Shuffling Additional Comments: Trazodone 150mg po qhs. Remeron 30mg po qhs Psychiatric Findings - Problem List ([place] 1, 2,3) (1) Alcohol dependence with uncomplicated withdrawal Current Visit: No Status: Acute (2) Cocaine dependence Current Visit: No Status: Acute Qualifiers: Substance use status: uncomplicated Qualified Code(s): F14.20 - Cocaine dependence, uncomplicated (3) Nicotine dependence Current Visit: No Status: Acute Qualifiers: Nicotine product type: cigarettes Substance use status: in withdrawal Qualified Code(s): F17.213 - Nicotine dependence, cigarettes, with withdrawal (4) Alcohol-induced anxiety disorder Current Visit: No Status: Chronic (5) Alcohol-induced mood disorder Current Visit: No Status: Chronic (6) Alcohol-induced sleep disorder Current Visit: No Status: Chronic (7) Substance induced mood disorder Current Visit: No Status: Chronic - Initial Treatment Plan Initial Treatment Plan: Trazodone 150mg po qhs. Remeron 30mg po qhs
[2017-10-20] MEDS: chlordiazePOXIDE HCL 25 MG CAPSULE PO SCH ×2 (16:45→22:37)
[2017-10-20 17:33] LABS: URINE APPEARANCE SLCLOUDY; URINE BILIRUBIN NEGATIVE (NEGATIVE); URINE BLOOD 2+ (NEGATIVE); URINE COLOR STRAW; URINE GLUCOSE (UA) 3+ (NEGATIVE); URINE KETONE 2+ (NEGATIVE); URINE NITRITE NEGATIVE (NEGATIVE); URINE UROBILINOGEN NEGATIVE mg/dL (0.2-1.0)
[2017-10-20 17:53] LABS: URINE PROTEIN 1+ (NEGATIVE)
[2017-10-20 17:55] LABS: URINE BACTERIA RARE /hpf (NONE SEEN); URINE MUCUS RARE; URINE RBC 19 /hpf (0-3); URINE WBC 10 /hpf (3-5); YEAST MANY
--- NOTE | 2017-10-20 18:26 | PN ---
[facility] Progress Note Note: received nurse call that the patient has muscle cramping baclofen 10 mg x 1 now
[2017-10-20] MEDS ORDERED: BACLOFEN 10 MG TABLET (FP) PO ONE (18:45)
[2017-10-20] MEDS: IBUPROFEN 400 MG TABLET (FP) PO PRN (20:45)
[2017-10-20 22:29] LABS: URINE LEUK ESTERASE Negative (NEGATIVE)
[2017-10-20] MEDS: traZODone HCL 50 MG TABLET (FP) PO SCH (22:37)
[2017-10-20] MEDS: PREGABALIN 75 MG CAPSULE PO SCH (22:37)
[2017-10-20] MEDS: THIAMINE HCL 100 MG TABLET (FP) PO SCH (22:37)
[2017-10-20] MEDS: MIRTAZAPINE 30 MG TABLET (FP) PO SCH (22:37)
[2017-10-20] MEDS: INSULIN DETEMIR 100 UNITS/ML MDV SQ SCH (22:38)
[2017-10-21] MEDS: chlordiazePOXIDE HCL 25 MG CAPSULE PO SCH ×4 (06:20→22:17)
[2017-10-21] MEDS ORDERED: INSULIN (NOVOLOG) ASPART 100 UNITS/ML 10ML VIAL ONE ×4 (07:55→21:31)
[2017-10-21] MEDS: INSULIN SLIDING SCALE (NOVOLOG) 1 VIAL SQ SCH ×4 (08:20→22:18)
--- NOTE | 2017-10-21 09:37 | PN ---
[facility] CIWA - CIWA Score Nausea/Vomitin-No Nausea/No Vomiting Muscle Tremors: 4-Moderate,w/Arms Extend Anxiety: 3 Agitation: 3 Paroxysmal Sweats: 3 Orientation: 0-Oriented Tacttile Disturbances: 0-None Auditory Disturbances: 0-None Visual Disturbances: 0-None Headache: 1-Very Mild CIWA-Ar Total Score: 14 S Progress Note (SOAP) Subjective: sleepy sweats chills body aches nausea Objective: 10/21/17 09:36 Vital Signs Temperature 96.3 F L 10/21/17 06:38 Pulse Rate 83 10/21/17 06:38 Respiratory Rate 18 10/21/17 06:38 Blood Pressure 90/60 10/21/17 06:38 O2 Sat by Pulse Oximetry (%) Laboratory Tests 10/20/17 10/20/17 10/20/17 10:49 12:59 13:43 POC Glucometer 433 395 Urine Color Straw Urine Appearance Slcloudy Urine pH 5.0 D Ur Specific [place] 1.027 Urine Protein 1+ H Urine Glucose (UA) 3+ H Urine Ketones 2+ H Urine Blood 2+ H Urine Nitrite Negative Urine Bilirubin Negative Urine Urobilinogen Negative Ur Leukocyte Esterase Negative Ur Epithelial Cells Rare Urine Bacteria Rare Urine Mucus Rare Urine Yeast Many 10/20/17 10/20/17 10/21/17 16:22 20:49 07:32 POC Glucometer [phone] Urine Color Urine Appearance Urine pH Ur Specific [place] Urine Protein Urine Glucose (UA) Urine Ketones Urine Blood Urine Nitrite Urine Bilirubin Urine Urobilinogen Ur Leukocyte Esterase Ur Epithelial Cells Urine Bacteria Urine Mucus Urine Yeast rest of labs pending aaox3 lying in bed no acute distress Assessment: 10/21/17 09:36 withdrawal sx Plan: continue detox increase fluids labs pending
[2017-10-21 09:48] LABS: MCH 29.2 pg (25.7-33.7); MCHC 33.4 g/dl (32.0-36.0); MEAN CELL VOLUME 87.4 fl (80-96); MEAN PLT VOLUME 7.8 fl (7.5-11.1); PLATELET COUNT 157 K/MM3 (134-434); RDW 16.8 % (11.6-15.6); WHITE BLOOD COUNT 3.3 K/mm3 (4.0-10.0)
[2017-10-21 10:38] LABS: ALK PHOS 238 U/L (45-117); ANION GAP 8 (8-16); BILIRUBIN,TOTAL 0.5 mg/dL (0.2-1.0); CALCIUM 8.3 mg/dL (8.5-10.1); CO2 28 mmol/L (21-32); CREATININE 0.5 mg/dL (0.55-1.02); GLUCOSE,RANDOM 256 mg/dL (74-106); SGOT/AST 65 U/L (15-37); SGPT/ALT 54 U/L (12-78)
[2017-10-21] MEDS: PRENATAL VITAMINS W/ FOLIC ACID TABLET (FP) PO SCH (10:58)
[2017-10-21] MEDS: LISINOPRIL 20 MG TABLET (FP) PO SCH (10:59)
[2017-10-21] MEDS: RANITIDINE HCL 150 MG TABLET (FP) PO SCH ×2 (10:59→22:17)
--- NOTE | 2017-10-21 13:24 | EKG ---
Test Reason : Blood Pressure : / mmHG Vent. Rate : 106 BPM Atrial Rate : 106 BPM P-R Int : 114 ms QRS Dur : 078 ms QT Int : 388 ms P-R-T Axes : 266 036 040 degrees QTc Int : 515 ms JUNCTIOAL TACHYCARDIA(INVERTED P WAVES IN II III aVF, UPRIGHT IN aVR AND INV4-V 6 VOLTAGE CRITERIA FOR LEFT VENTRICULAR HYPERTROPHY ABNORMAL ECG WHEN COMPARED WITH ECG OF 16-SEP-2017 13:18, JUNCTIONAL RHYTHM HAS REPLACED SINUS RHYTHM CLINICAL CORRELATION IS RECOMMENDED AND F/U EKG Confirmed by DIMITRIOS RIOJAS MD ([id number] on 10/21/2017 1:23:40 PM Referred By: Confirmed By:DIMITRIOS RIOJAS MD
[2017-10-21] MEDS: THIAMINE HCL 100 MG TABLET (FP) PO SCH (22:17)
[2017-10-21] MEDS: PREGABALIN 75 MG CAPSULE PO SCH (22:17)
[2017-10-21] MEDS: traZODone HCL 50 MG TABLET (FP) PO SCH (22:18)
[2017-10-21] MEDS: INSULIN DETEMIR 100 UNITS/ML MDV SQ SCH (22:18)
[2017-10-21] MEDS: MIRTAZAPINE 30 MG TABLET (FP) PO SCH (22:18)
[2017-10-22] MEDS: chlordiazePOXIDE HCL 25 MG CAPSULE PO SCH ×2 (06:02→10:42)
[2017-10-22] MEDS ORDERED: INSULIN (NOVOLOG) ASPART 100 UNITS/ML 10ML VIAL SQ ONE (06:12)
[2017-10-22] MEDS: INSULIN SLIDING SCALE (NOVOLOG) 1 VIAL SQ SCH ×4 (06:40→22:41)
--- NOTE | 2017-10-22 09:36 | PN ---
S CIWA - CIWA Score Nausea/Vomitin Muscle Tremors: 3 Anxiety: 3 Agitation: 3 Paroxysmal Sweats: 3 Orientation: 0-Oriented Tacttile Disturbances: 1-Very Mild Itch/Numbness Auditory Disturbances: 0-None Visual Disturbances: 0-None Headache: 1-Very Mild CIWA-Ar Total Score: 17 S Progress Note (SOAP) Subjective: nausea, sweats, interrupted sleep, anxiety, trmeors Objective: 10/22/17 09:35 Vital Signs - 24 hr 10/21/17 10/21/17 10/21/17 10:03 14:13 18:58 Temperature 97.2 F L 99.0 F 98.1 F Pulse Rate 100 H 100 H 106 H Respiratory 18 20 20 Rate Blood Pressure 119/72 118/68 108/69 10/21/17 10/22/17 10/22/17 22:00 00:30 03:30 Temperature 99.5 F Pulse Rate 115 H Respiratory 20 18 18 Rate Blood Pressure 144/87 10/22/17 06:35 Temperature 97.7 F Pulse Rate 97 H Respiratory 20 Rate Blood Pressure 119/73 Laboratory Tests 10/20/17 10/20/17 10/20/17 10:49 12:59 13:43 WBC RBC Hgb Hct MCV MCH MCHC RDW Plt Count MPV Sodium Potassium Chloride Carbon Dioxide Anion Gap BUN Creatinine Creat Clearance w eGFR POC Glucometer 433 395 Random Glucose Calcium Total Bilirubin AST ALT Alkaline Phosphatase Total Protein Albumin Urine Color Straw Urine Appearance Slcloudy Urine pH 5.0 D Ur Specific [place] 1.027 Urine Protein 1+ H Urine Glucose (UA) 3+ H Urine Ketones 2+ H Urine Blood 2+ H Urine Nitrite Negative Urine Bilirubin Negative Urine Urobilinogen Negative Ur Leukocyte Esterase Negative Ur Epithelial Cells Rare Urine Bacteria Rare Urine Mucus Rare Urine Yeast Many RPR Titer 10/20/17 10/20/17 10/21/17 16:22 20:49 07:00 WBC 3.3 L RBC 3.96 Hgb 11.5 Hct 34.6 MCV 87.4 MCH 29.2 MCHC 33.4 RDW 16.8 H D Plt Count 157 MPV 7.8 Sodium Potassium Chloride Carbon Dioxide Anion Gap BUN Creatinine Creat Clearance w eGFR POC Glucometer 468 454 Random Glucose Calcium Total Bilirubin AST ALT Alkaline Phosphatase Total Protein Albumin Urine Color Urine Appearance Urine pH Ur Specific [place] Urine Protein Urine Glucose (UA) Urine Ketones Urine Blood Urine Nitrite Urine Bilirubin Urine Urobilinogen Ur Leukocyte Esterase Ur Epithelial Cells Urine Bacteria Urine Mucus Urine Yeast RPR Titer 10/21/17 10/21/17 10/21/17 07:00 07:00 07:32 WBC RBC Hgb Hct MCV MCH MCHC RDW Plt Count MPV Sodium 137 Potassium 3.3 L Chloride 101 Carbon Dioxide 28 D Anion Gap 8 BUN 12 D Creatinine 0.5 L Creat Clearance w eGFR > 60 POC Glucometer 257 Random Glucose 256 H D Calcium 8.3 L Total Bilirubin 0.5 D AST 65 H D ALT 54 D Alkaline Phosphatase 238 H Total Protein 6.0 L Albumin 2.0 L Urine Color Urine Appearance Urine pH Ur Specific [place] Urine Protein Urine Glucose (UA) Urine Ketones Urine Blood Urine Nitrite Urine Bilirubin Urine Urobilinogen Ur Leukocyte Esterase Ur Epithelial Cells Urine Bacteria Urine Mucus Urine Yeast RPR Titer Nonreactive 10/21/17 10/21/17 10/21/17 11:08 16:40 20:43 WBC RBC Hgb Hct MCV MCH MCHC RDW Plt Count MPV Sodium Potassium Chloride Carbon Dioxide Anion Gap BUN Creatinine Creat Clearance w eGFR POC Glucometer 256 455 523 Random Glucose Calcium Total Bilirubin AST ALT Alkaline Phosphatase Total Protein Albumin Urine Color Urine Appearance Urine pH Ur Specific [place] Urine Protein Urine Glucose (UA) Urine Ketones Urine Blood Urine Nitrite Urine Bilirubin Urine Urobilinogen Ur Leukocyte Esterase Ur Epithelial Cells Urine Bacteria Urine Mucus Urine Yeast RPR Titer 10/22/17 05:59 WBC RBC Hgb Hct MCV MCH MCHC RDW Plt Count MPV Sodium Potassium Chloride Carbon Dioxide Anion Gap BUN Creatinine Creat Clearance w eGFR POC Glucometer 529 Random Glucose Calcium Total Bilirubin AST ALT Alkaline Phosphatase Total Protein Albumin Urine Color Urine Appearance Urine pH Ur Specific [place] Urine Protein Urine Glucose (UA) Urine Ketones Urine Blood Urine Nitrite Urine Bilirubin Urine Urobilinogen Ur Leukocyte Esterase Ur Epithelial Cells Urine Bacteria Urine Mucus Urine Yeast RPR Titer Assessment: 10/22/17 09:35 withdrawal sx, elevated glucose, cont detox, d/c glucerna, dietary consult, fluids, increase sliding scale insulin for blood sugar control
[2017-10-22] MEDS: PRENATAL VITAMINS W/ FOLIC ACID TABLET (FP) PO SCH (10:42)
[2017-10-22] MEDS: RANITIDINE HCL 150 MG TABLET (FP) PO SCH ×2 (10:42→22:40)
[2017-10-22] MEDS: LISINOPRIL 20 MG TABLET (FP) PO SCH (10:42)
[2017-10-22] MEDS ORDERED: INSULIN (NOVOLOG) ASPART 100 UNITS/ML 10ML VIAL ONE ×3 (11:35→23:04)
[2017-10-22] MEDS: LOPERAMIDE HCL 2 MG CAPSULE PO PRN (15:01)
[2017-10-22] MEDS ORDERED: POTASSIUM CHLORIDE TABS 20 MEQ TABLET.ER (FP) PO ONE (16:30)
[2017-10-22] MEDS: chlordiazePOXIDE 5 MG CAPSULE PO SCH ×2 (17:43→22:40)
[2017-10-22] MEDS: PREGABALIN 75 MG CAPSULE PO SCH (22:40)
[2017-10-22] MEDS: traZODone HCL 50 MG TABLET (FP) PO SCH (22:40)
[2017-10-22] MEDS: MIRTAZAPINE 30 MG TABLET (FP) PO SCH (22:40)
[2017-10-22] MEDS: THIAMINE HCL 100 MG TABLET (FP) PO SCH (22:40)
[2017-10-22] MEDS: INSULIN DETEMIR 100 UNITS/ML MDV SQ SCH (22:41)
[2017-10-23] MEDS ORDERED: INSULIN (NOVOLOG) ASPART 100 UNITS/ML 10ML VIAL ONE ×4 (06:40→21:13)
[2017-10-23] MEDS: chlordiazePOXIDE 5 MG CAPSULE PO SCH ×2 (06:45→10:23)
[2017-10-23] MEDS: INSULIN SLIDING SCALE (NOVOLOG) 1 VIAL SQ SCH ×4 (07:50→22:48)
[2017-10-23] MEDS: LISINOPRIL 20 MG TABLET (FP) PO SCH (10:23)
[2017-10-23] MEDS: PRENATAL VITAMINS W/ FOLIC ACID TABLET (FP) PO SCH (10:23)
[2017-10-23] MEDS: POTASSIUM CHLORIDE TABS 20 MEQ TABLET.ER (FP) PO SCH (10:23)
[2017-10-23] MEDS: RANITIDINE HCL 150 MG TABLET (FP) PO SCH ×2 (10:24→22:47)
[2017-10-23] MEDS: LOPERAMIDE HCL 2 MG CAPSULE PO PRN (10:26)
--- NOTE | 2017-10-23 12:51 | PN ---
[facility] Progress Note (SOAP) Subjective: body aches sweats interrupted sleep Objective: 10/23/17 12:50 Vital Signs Temperature 97.7 F 10/23/17 09:57 Pulse Rate 104 H 10/23/17 09:57 Respiratory Rate 18 10/23/17 09:57 Blood Pressure 124/76 10/23/17 09:57 O2 Sat by Pulse Oximetry (%) aaox3 ambulating no acute distress Assessment: 10/23/17 12:51 withdrawal sx Plan: continue detox increase fluids d/c in am
[2017-10-23] MEDS: chlordiazePOXIDE HCL 10 MG CAPSULE PO SCH ×2 (17:45→22:55)
[2017-10-23] MEDS ORDERED: INSULIN DETEMIR 100 UNITS/ML MDV SQ ONE (21:14)
[2017-10-23] MEDS: PREGABALIN 75 MG CAPSULE PO SCH (22:47)
[2017-10-23] MEDS: traZODone HCL 50 MG TABLET (FP) PO SCH (22:47)
[2017-10-23] MEDS: MIRTAZAPINE 30 MG TABLET (FP) PO SCH (22:48)
[2017-10-23] MEDS: INSULIN DETEMIR 100 UNITS/ML MDV SQ SCH (22:48)
[2017-10-23] MEDS: THIAMINE HCL 100 MG TABLET (FP) PO SCH (22:49)
[2017-10-24] MEDS: IBUPROFEN 400 MG TABLET (FP) PO PRN (05:27)
[2017-10-24] MEDS: chlordiazePOXIDE HCL 10 MG CAPSULE PO SCH ×2 (05:27→10:51)
[2017-10-24] MEDS ORDERED: INSULIN (NOVOLOG) ASPART 100 UNITS/ML 10ML VIAL ONE ×2 (07:56→11:42)
[2017-10-24] MEDS: INSULIN SLIDING SCALE (NOVOLOG) 1 VIAL SQ SCH ×2 (07:59→12:05)
--- NOTE | 2017-10-24 09:17 | DS ---
[facility] Detox Discharge Summary Admission Date: 10/20/17 Discharge Date: 10/24/17 - History Present History: Alcohol Dependence, Cocaine Dependence - Physical Exam Results Vital Signs: Vital Signs Temperature 97.9 F 10/24/17 06:25 Pulse Rate 87 10/24/17 06:25 Respiratory Rate 18 10/24/17 06:25 Blood Pressure 98/61 10/24/17 06:25 O2 Sat by Pulse Oximetry (%) - Treatment Hospital Course: Detox Protocol Followed, Detoxed Safely, Responded well, Discharged Condition Good, Rehab Referral Accepted - Medication Discharge Medications: Ambulatory Orders Lisinopril [Prinivil] 20 mg PO DAILY #30 tablet 11/27/16 Ranitidine [Zantac -] 150 mg PO BID #60 tablet 11/27/16 Gabapentin [Neurontin -] 400 mg PO TID #90 cap 04/09/17 Pregabalin [Lyrica] 150 mg PO HS 04/30/17 Insulin Glargine,Hum.rec.anlog [Lantus Solostar PEN (NF)] 40 units SQ HS Insulin Lispro [Humalog] 0 unit SQ TIDCM 10/20/17 Mirtazapine [Remeron -] 30 mg PO HS #30 tablet 10/20/17 Trazodone HCl [Desyrel -] 150 mg PO HS #30 tablet 10/20/17 - Diagnosis (1) Hypertension Current Visit: Yes Status: Chronic Qualifiers: Hypertension type: essential hypertension Qualified Code(s): I10 - Essential (primary) hypertension (2) Polyneuropathy Current Visit: Yes Status: Chronic (3) Alcohol dependence with uncomplicated withdrawal Current Visit: No Status: Chronic (4) Cocaine dependence Current Visit: No Status: Chronic Qualifiers: Substance use status: uncomplicated Qualified Code(s): F14.20 - Cocaine dependence, uncomplicated (5) Nicotine dependence Current Visit: No Status: Chronic Qualifiers: Nicotine product type: cigarettes Substance use status: uncomplicated Qualified Code(s): F17.210 - Nicotine dependence, cigarettes, uncomplicated (6) Chronic liver disease and cirrhosis Current Visit: No Status: Chronic (7) Diabetes mellitus, insulin dependent (IDDM), uncontrolled Current Visit: No Status: Chronic Qualifiers: Diabetes mellitus complication status: without complication Qualified Code( s): E10.65 - Type 1 diabetes mellitus with hyperglycemia (8) GERD (gastroesophageal reflux disease) Current Visit: No Status: Chronic Qualifiers: Esophagitis presence: without esophagitis Qualified Code(s): K21.9 - Gastro -esophageal reflux disease without esophagitis - AMA Did Patient Leave Against Medical Advice: No
[2017-10-24 10:41] VITALS: BP 141/87; PULSE 101; TEMP 97.7
[2017-10-24] MEDS: LISINOPRIL 20 MG TABLET (FP) PO SCH (10:50)
[2017-10-24] MEDS: PRENATAL VITAMINS W/ FOLIC ACID TABLET (FP) PO SCH (10:50)
[2017-10-24] MEDS: POTASSIUM CHLORIDE TABS 20 MEQ TABLET.ER (FP) PO SCH (10:51)
[2017-10-24] MEDS: RANITIDINE HCL 150 MG TABLET (FP) PO SCH (10:51)
[2017-10-24] MEDS: LOPERAMIDE HCL 2 MG CAPSULE PO PRN (11:12)
== END 2017-10-24 13:47 | disposition home or self-care (01) | DRG 897 ==
LOC: YASAS 08:15 → Y6N 12:20
PROVIDERS: ADMIT Internal Medicine; ATTEND Internal Medicine
PROC: HZ2ZZZZ Detoxification Services for Substance Abuse Treatment (ICD-10-PCS; principal; 2017-10-20)
DX: F10.230 Alcohol dependence with withdrawal, uncomplicated (principal); F14.20 Cocaine dependence, uncomplicated; F10.24 Alcohol dependence with alcohol-induced mood disorder; F10.280 Alcohol dependence with alcohol-induced anxiety disorder; F10.282 Alcohol dependence with alcohol-induced sleep disorder; F17.210 Nicotine dependence, cigarettes, uncomplicated; I10 Essential (primary) hypertension; G62.9 Polyneuropathy, unspecified; K21.9 Gastro-esophageal reflux disease without esophagitis; K74.60 Unspecified cirrhosis of liver; E10.65 Type 1 diabetes mellitus with hyperglycemia; R00.0 Tachycardia, unspecified; Z91.013 Allergy to seafood; Z79.4 Long term (current) use of insulin
CPT/HCPCS: 36415; 80053; 81003; 81015; 85027; 86593; 93005; 93010; J0475

== ENCOUNTER 2017-10-24 14:48 | Inpatient (IN) | payer OTHER ==
[2017-10-24 15:17] VITALS: BMI 27.6
--- NOTE | 2017-10-24 15:22 | PDOC ---
History of Present Illness - General History Source: Patient Exam Limitations: No Limitations - History of Present Illness Initial Comments: 10/24/17 16:01 The patient is a 47 year old female, with a significant past medical history of hypertension, diabetes, GERD, and liver failure, who presents to the emergency department with increased weakness and abdominal pain for approximately 1 week. The patient states she has been increasingly lethargic, has been sleeping a lot , and unable to eat much over the past week. She reports associated abdominal pain, bloating, and nausea, but denies any vomiting, diarrhea, or constipation. She reports a subjective fever, chills, and diaphoresis, but denies any cough, headache, dizziness, lightheadedness, or sore throat. She reports increased lower extremity edema, but denies any any chest pain, shortness of breath, or palpitations. Patient reports her symptoms are similar to when she has elevated ammonia levels secondary to liver failure. She denies any dysuria, hematuria, frequency, or urgency. She denies any recent travel or sick contacts. Allergies: NKDA Past Surgical History: Sx coccyx due to osteomyelitis, tubal ligation Social History: ETOH abuse. Non smoker. No recreational drug use. <Shayan Parrish - Last Filed: 10/24/17 16:56> <Ehsan Medrano - Last Filed: 10/24/17 19:54> <Charlotte Alex - Last Filed: 10/25/17 03:26> - General Stated Complaint: Blood Sugar Problem Past History <Shayan Parrish - Last Filed: 10/24/17 16:56> - Past Medical History Anemia: No Asthma: No Cancer: No Cardiac Disorders: No CVA: No COPD: No CHF: No Dementia: No Diabetes: Yes (IDDM-INSULIN LANTUS & HUMOLOG) GI Disorders: Yes (GERD-NEXIUM) Disorders: No HTN: Yes (LISINOPRIL 10 MG DAILY) Hypercholesterolemia: No Kidney Stones: No Liver Disease: No Seizures: No Thyroid Disease: No - Surgical History Abdominal Surgery: Yes (TUBAL LIGATION IN 2005) Appendectomy: No Cardiac Surgery: No Cholecystectomy: No Lung Surgery: No Neurologic Surgery: No Orthopedic Surgery: Yes (neck, 11/30/2015 (fall);SX COCYX DUE TO OSTEOMYLITIS- 2010) - Reproductive History PID: No - Immunization History Immunization Up to Date: No - Suicide/Smoking/Psychosocial Hx Smoking History: Never smoked Have you smoked in the past 12 months: No Number of Cigarettes Smoked Daily: 0 Cigars Per Day: 0 Information on smoking cessation initiated: No 'Breaking Loose' booklet given: 05/30/16 Hx Alcohol Use: Yes (VODKA) Drug/Substance Use Hx: Yes (CRACK) Substance Use Type: Alcohol, Cocaine Hx Substance Use Treatment: Yes (LAST TX AT [facility]) <Ehsan Medrano - Last Filed: 10/24/17 19:54> <Charlotte Alex - Last Filed: 10/25/17 03:26> - Past Medical History Allergies/Adverse Reactions: Allergies Allergy/AdvReac Type Severity Reaction Status Date / Time fish derived Allergy Severe Swelling Verified 10/24/17 15:17 shellfish derived Allergy Severe Swelling Verified 10/24/17 15:17 No Known Drug Allergies Allergy Verified 10/24/17 15:17 SEAFOOD Allergy Severe Swelling Uncoded 10/24/17 15:17 Home Medications: Ambulatory Orders Lisinopril [Prinivil] 20 mg PO DAILY #30 tablet 11/27/16 Ranitidine [Zantac -] 150 mg PO BID #60 tablet 11/27/16 Gabapentin [Neurontin -] 400 mg PO TID #90 cap 04/09/17 Pregabalin [Lyrica] 150 mg PO HS 04/30/17 Insulin Glargine,Hum.rec.anlog [Lantus Solostar PEN (NF)] 40 units SQ HS Insulin Lispro [Humalog] 0 unit SQ TIDCM 10/20/17 Mirtazapine [Remeron -] 30 mg PO HS #30 tablet 10/20/17 Trazodone HCl [Desyrel -] 150 mg PO HS #30 tablet 10/20/17 Review of Systems - Review of Systems Able to Perform ROS?: Yes Comments:: 10/24/17 16:01 A complete review of 10 out of 10 review of systems is taken and is negative apart from what is previously mentioned below and in the HPI. <Shayan Parrish - Last Filed: 10/24/17 16:56> *Physical Exam - Vital Signs Last Vital Signs Temp Pulse Resp BP Pulse Ox 98.2 F 88 20 112/70 100 10/24/17 15:14 10/24/17 15:14 10/24/17 15:14 10/24/17 15:14 10/24/17 15:14 - Physical Exam Comments: 10/24/17 16:01 Vitals: Triage Vital signs reviewed General Appearance: mild distress, well nourished well developed, Head: Atraumatic, normocephalic Neck: Supple;No Nuchal rigidity Chest Wall: Nontender Cardiac: Regular rate and rhythm, no murmurs, no rubs, no gallops, Lungs: Clear to auscultation bilateral, good air movement bilaterally, Abdomen: Diffuse abdominal tenderness to palpation, mildly distended. Soft, normal bowel sounds. Extremities: Full range of motion to all extremities, no cyanosis, clubbing, or edema Skin: Warm and dry, no rashes or lesions, no petechiae Neuro: Asterixis bilaterally. AOX3; Cranial Nerves 2-12 grossly intact, Strength intact to all extremities, Sensation intact to all extremities Psych: normal mood, normal affect Bedside US performed. No obvious ascites. <Shayan Parrish - Last Filed: 10/24/17 16:56> - Vital Signs Last Vital Signs Temp Pulse Resp BP Pulse Ox 98.2 F 88 20 112/70 100 10/24/17 15:14 10/24/17 15:14 10/24/17 15:14 10/24/17 15:14 10/24/17 15:14 <Ehsan Medrano - Last Filed: 10/24/17 19:54> - Vital Signs Last Vital Signs Temp Pulse Resp BP Pulse Ox 98.2 F 88 20 112/70 100 10/24/17 15:14 10/24/17 15:14 10/24/17 15:14 10/24/17 15:14 10/24/17 15:14 <Charlotte Alex - Last Filed: 10/25/17 03:26> ED Treatment Course - LABORATORY CBC & Chemistry Diagram: 10/24/17 15:55 10/24/17 15:55 <Shayan Parrish - Last Filed: 10/24/17 16:56> - LABORATORY CBC & Chemistry Diagram: 10/24/17 15:55 10/24/17 17:00 <Ehsan Medrano - Last Filed: 10/24/17 19:54> - LABORATORY CBC & Chemistry Diagram: 10/24/17 15:55 10/24/17 17:00 - ADDITIONAL ORDERS Additional order review: Laboratory Results 10/24/17 10/24/17 10/24/17 18:00 17:00 17:00 PT with INR INR PTT (Actin FS) Puncture Site Right radial ABG pH 7.45 ABG pCO2 at Pt Temp 34.7 L ABG pO2 at Pt Temp 118.0 H D ABG HCO3 23.4 ABG O2 Sat (Measured) 99.2 H ABG O2 Content 15.0 ABG Base Excess 0.2 Giovanni Test Positive Carboxyhemoglobin 2.0 Methemoglobin 0.4 Oxygen Flow Rate No Sodium 133 L Potassium 5.0 D Chloride 102 Carbon Dioxide 24 Anion Gap 7 L BUN 13 Creatinine 0.8 D Creat Clearance w eGFR > 60 Random Glucose 690 H* D Calcium 8.5 Total Bilirubin 0.8 D AST 44 H D ALT 64 Alkaline Phosphatase 204 H Ammonia Total Protein 6.4 Albumin 2.0 L Urine Color Urine Appearance Urine pH Ur Specific [place] Urine Protein Urine Glucose (UA) Urine Ketones Urine Blood Urine Nitrite Urine Bilirubin Urine Urobilinogen Ur Leukocyte Esterase Urine HCG, Qual Alcohol, Quantitative < 5.0 Acetone, Qual Negative L Blood Type Antibody Screen 10/24/17 10/24/17 10/24/17 17:00 16:02 16:00 PT with INR 11.70 INR 1.04 PTT (Actin FS) 29.9 Puncture Site ABG pH ABG pCO2 at Pt Temp ABG pO2 at Pt Temp ABG HCO3 ABG O2 Sat (Measured) ABG O2 Content ABG Base Excess Giovanni Test Carboxyhemoglobin Methemoglobin Oxygen Flow Rate Sodium Potassium Chloride Carbon Dioxide Anion Gap BUN Creatinine Creat Clearance w eGFR Random Glucose Calcium Total Bilirubin AST ALT Alkaline Phosphatase Ammonia Total Protein Albumin Urine Color Urine Appearance Urine pH Ur Specific [place] Urine Protein Urine Glucose (UA) Urine Ketones Urine Blood Urine Nitrite Urine Bilirubin Urine Urobilinogen Ur Leukocyte Esterase Urine HCG, Qual Negative Alcohol, Quantitative Acetone, Qual Blood Type O NEGATIVE Antibody Screen Negative 10/24/17 10/24/17 10/24/17 15:55 15:55 15:55 PT with INR INR PTT (Actin FS) Puncture Site ABG pH ABG pCO2 at Pt Temp ABG pO2 at Pt Temp ABG HCO3 ABG O2 Sat (Measured) ABG O2 Content ABG Base Excess Giovanni Test Carboxyhemoglobin Methemoglobin Oxygen Flow Rate Sodium Cancelled Potassium Cancelled Chloride Cancelled Carbon Dioxide Cancelled Anion Gap Cancelled BUN Cancelled Creatinine Cancelled Creat Clearance w eGFR Cancelled Random Glucose Cancelled Calcium Cancelled Total Bilirubin Cancelled AST Cancelled ALT Cancelled Alkaline Phosphatase Cancelled Ammonia 105.96 H Total Protein Cancelled Albumin Cancelled Urine Color Urine Appearance Urine pH Ur Specific [place] Urine Protein Urine Glucose (UA) Urine Ketones Urine Blood Urine Nitrite Urine Bilirubin Urine Urobilinogen Ur Leukocyte Esterase Urine HCG, Qual Alcohol, Quantitative < 5.0 Acetone, Qual Cancelled Blood Type Antibody Screen 10/24/17 15:42 PT with INR INR PTT (Actin FS) Puncture Site ABG pH ABG pCO2 at Pt Temp ABG pO2 at Pt Temp ABG HCO3 ABG O2 Sat (Measured) ABG O2 Content ABG Base Excess Giovanni Test Carboxyhemoglobin Methemoglobin Oxygen Flow Rate Sodium Potassium Chloride Carbon Dioxide Anion Gap BUN Creatinine Creat Clearance w eGFR Random Glucose Calcium Total Bilirubin AST ALT Alkaline Phosphatase Ammonia Total Protein Albumin Urine Color Straw Urine Appearance Clear Urine pH 6.0 Ur Specific [place] 1.028 Urine Protein Negative Urine Glucose (UA) 3+ H Urine Ketones Negative Urine Blood Negative Urine Nitrite Negative Urine Bilirubin Negative Urine Urobilinogen Negative Ur Leukocyte Esterase Negative Urine HCG, Qual Alcohol, Quantitative Acetone, Qual Blood Type Antibody Screen 10/24/17 15:55 RBC 4.01 MCV 93.0 MCHC 32.4 RDW 17.5 H MPV 9.1 D Neutrophils % 51.0 Lymphocytes % 32.3 D Monocytes % 16.6 H Eosinophils % 0.0 Basophils % 0.1 - Medications Given in the ED: ED Medications Discontinued Medications Generic Name Dose Route Start Last Admin Trade Name Freq PRN Reason Stop Dose Admin Insulin Human Regular 10 units 10/24/17 18:38 10/24/17 19:23 Novolin R Vial *For Ivpush Or Iv Drip Only* SQ 10/24/17 18:39 10 units ONCE ONE Administration Lactulose 20 gm 10/24/17 19:54 10/24/17 20:19 Cephulac (Oral Use) PO 10/24/17 19:55 20 gm ONCE ONE Administration Morphine Sulfate 4 mg 10/24/17 16:56 10/24/17 17:25 Morphine Injection - IVPUSH 10/24/17 16:57 4 mg ONCE ONE Administration Sodium Chloride 1,000 ml 10/24/17 17:22 10/24/17 17:25 Normal Saline - IV 10/24/17 17:23 1,000 ml ONCE ONE Administration Tramadol HCl 50 mg 10/24/17 16:41 10/24/17 17:52 Ultram - PO 10/24/17 16:42 Not Given ONCE ONE <Charlotte Alex - Last Filed: 10/25/17 03:26> Medical Decision Making - Medical Decision Making 10/24/17 16:29 Pt is a 47 year old female, with a significant past medical history of hypertension, diabetes, GERD, and liver failure, who presents to the emergency department with increased weakness and abdominal pain for approximately 1 week. Plan: -Labs -CXR <Shayan Parrish - Last Filed: 10/24/17 16:56> - Medical Decision Making 10/24/17 19:54 Labs concerning for hepatic encephalopathy bedside ultrasound demonstrates no ascites. CT pending Dr. Amin to follow-up CT report and admit patient for further management. <Ehsan Medrano - Last Filed: 10/24/17 19:54> - Medical Decision Making 10/25/17 03:16 Pt has an acute appendicitis on CT scan; corroborated with physical exam: mild rebound and tenderness to deep palpation in the RLQ. Pt is ambulatory back and forth to the bathroom. Pt is afebrile. I will treat her with a dose of Zosyn and call surg solution manager 10/25/17 03:19 Surgery is aware of the patient and wants her admitted to medicine as she has low WBC count and complicated medical history. I will admit her to Hospitalist with surgical consult for Dr. Manriquez. He is aware of the patient. 10/25/17 03:25 <Charlotte Alex - Last Filed: 10/25/17 03:26> *DC/Admit/Observation/Transfer - Attestations Scribe Attestion: 10/24/17 16:04 Documentation prepared by Shayan Parrish, acting as biomedical repair technician for Ehsan Medrano MD. <Shayan Parrish - Last Filed: 10/24/17 16:56> <Ehsan Medrano - Last Filed: 10/24/17 19:54> - Discharge Dispostion Admit: Yes <Charlotte Alex - Last Filed: 10/25/17 03:26> Diagnosis at time of Disposition: Diabetes mellitus, insulin dependent (IDDM), uncontrolled, Appendicitis - Discharge Dispostion Condition at time of disposition: Guarded
[2017-10-24 16:12] LABS: BASOPHIL 0.1 % (0-2.0); MCH 30.2 pg (25.7-33.7); MCHC 32.4 g/dl (32.0-36.0); MEAN PLT VOLUME 9.1 fl (7.5-11.1); PLATELET COUNT 169 K/MM3 (134-434); RDW 17.5 % (11.6-15.6); WHITE BLOOD COUNT 3.5 K/mm3 (4.0-10.0)
[2017-10-24 16:15] LABS: URINE APPEARANCE CLEAR; URINE BILIRUBIN NEGATIVE (NEGATIVE); URINE BLOOD NEGATIVE (NEGATIVE); URINE COLOR STRAW; URINE GLUCOSE (UA) 3+ (NEGATIVE); URINE KETONE NEGATIVE (NEGATIVE); URINE NITRITE NEGATIVE (NEGATIVE); URINE PROTEIN NEGATIVE (NEGATIVE); URINE UROBILINOGEN NEGATIVE mg/dL (0.2-1.0)
[2017-10-24] MEDS ORDERED: traMADol HCL 50 MG TABLET PO ONE (16:41)
[2017-10-24] MEDS ORDERED: morphine CARPU-JECT 4 MG/1 ML DISP.SYRIN IVPUSH ONE (16:56)
[2017-10-24] MEDS ORDERED: SODIUM CHLORIDE 0.9% 1000 ML INFUS.BAG IV ONE (17:22)
[2017-10-24] MEDS ORDERED: morphine SULFATE 4 MG/ML VIAL ONE (17:26)
[2017-10-24 17:36] LABS: INR 1.04 (0.82-1.09); PROTHROMBIN TIME (PATIENT) 11.7 SEC (9.98-11.88)
[2017-10-24 17:38] LABS: ACTIVATED PTT 29.9 SECONDS (26.9-34.4)
[2017-10-24 17:44] LABS: ANION GAP 7 (8-16); CALCIUM 8.5 mg/dL (8.5-10.1); CO2 24 mmol/L (21-32); CREATININE 0.8 mg/dL (0.55-1.02); SGOT/AST 44 U/L (15-37); SGPT/ALT 64 U/L (12-78)
[2017-10-24 17:50] LABS: ALK PHOS 204 U/L (45-117); BILIRUBIN,TOTAL 0.8 mg/dL (0.2-1.0); TOT PROT 6.4 g/dl (6.4-8.2)
[2017-10-24 17:54] LABS: GLUCOSE,RANDOM 690 mg/dL (74-106)
[2017-10-24 17:56] LABS: ACETONE SERUM NEGATIVE (NEGATIVE)
[2017-10-24 18:11] LABS: ARTERIAL BLD GAS O2 SATURATION 99.2 % (90-98.9); ARTERIAL BLOOD GAS BASE EXCESS 0.2 meq/l (-2-2); ARTERIAL BLOOD GAS HCO3 23.4 meq/L (22-26); ARTERIAL BLOOD GAS pH 7.45 (7.35-7.45)
[2017-10-24 18:13] LABS: ALLENS TEST POSITIVE; ART PUNCT SITE RIGHT RADIAL; PT. ON O2? NO
[2017-10-24 18:14] LABS: METHEMOGLOBIN 0.4 % (0.4-1.5)
[2017-10-24] MEDS ORDERED: INSULIN REGULAR HUMAN 100 UNITS/ML *VIAL SQ ONE (18:38)
[2017-10-24] MEDS ORDERED: INSULIN (NOVOLOG) ASPART 100 UNITS/ML 10ML VIAL ONE (19:22)
[2017-10-24] MEDS ORDERED: LACTULOSE 20 GM/30 ML UDC (FOR ORAL USE ONLY) PO ONE (19:54)
[2017-10-24] MEDS ORDERED: LACTULOSE 20 GM/30 ML UDC (FOR ORAL USE ONLY) ONE (20:17)
[2017-10-24 23:05] LABS: URINE LEUK ESTERASE Negative (NEGATIVE)
[2017-10-25] MEDS ORDERED: INSULIN REGULAR HUMAN 100 UNITS/ML *VIAL ONE (03:40)
[2017-10-25] MEDS ORDERED: PIPERACILLIN/TAZOB 4.5 GM 4.5 GM/100 ML BAG IVPB ONE (03:40)
[2017-10-25] MEDS ORDERED: PIPERACILLIN/TAZOB 4.5 GM/100 ML PRE-DOCKED IVPB ONE (03:50)
--- NOTE | 2017-10-25 03:50 | CONSULT ---
Consult Consult Specialty:: general surgery Reason for Consultation:: [facility] - History of Present Illness Chief Complaint: right abdominal pain History of Present Illness: 47 yo female PMH hypertension, diabetes, GERD, and liver failure, who presents to the emergency department with increased weakness and abdominal pain for worsening approximately 1 week. Discharged from [facility] (detox) at 2pm yesterday and presented to ED at 3pm. The patient states she has been increasingly lethargic, has been sleeping a lot, and unable to eat much over the past week. She reports associated abdominal pain, bloating, and nausea, but denies any vomiting, diarrhea, or constipation. She reports a subjective fever, chills, and diaphoresis. She is not clear on why she did not seek medical attention earlier. She is a poor historian on interview. - History Source History Provided By: Patient Limitations to Obtaining History: Clinical Condition (She is hypersomulent) - Past Medical History Cardio/Vascular: Yes: HTN, Other (DM ) Gastrointestinal: Yes: GERD Hepatobiliary: Yes: Cirrhosis, Other (REFRACTORY ASCITES AND CIRRHOSIS, HEP B/ C NEG PER PATIENT) ...LMP: 10/20/17 Psych: Yes: Addictions (alcohol abuse), Other (Substance abuse) Endocrine: Yes: Diabetes Mellitus Additional Medical History: peripheral neuropathy - Past Surgical History Past Surgical History: Yes: Cholecystectomy, Tubal Ligation - Alcohol/Substance Use Hx Alcohol Use: Yes (VODKA) History of Substance Use: reports: Cocaine, Prescription (history of poly substance abuse an has a prescription bottle of pills that are not hers) - Smoking History Smoking history: Never smoked Have you smoked in the past 12 months: No Aproximately how many cigarettes per day: 0 - Social History Usual Living Arrangement: Alone ADL: Independent Occupation: disabled History of Recent Travel: No Home Medications - Allergies Allergies/Adverse Reactions: Allergies Allergy/AdvReac Type Severity Reaction Status Date / Time fish derived Allergy Severe Swelling Verified 10/24/17 15:17 shellfish derived Allergy Severe Swelling Verified 10/24/17 15:17 No Known Drug Allergies Allergy Verified 10/24/17 15:17 SEAFOOD Allergy Severe Swelling Uncoded 10/24/17 15:17 - Home Medications Home Medications: Ambulatory Orders Lisinopril [Prinivil] 20 mg PO DAILY #30 tablet 11/27/16 Ranitidine [Zantac -] 150 mg PO BID #60 tablet 11/27/16 Gabapentin [Neurontin -] 400 mg PO TID #90 cap 04/09/17 Pregabalin [Lyrica] 150 mg PO HS 04/30/17 Insulin Glargine,Hum.rec.anlog [Lantus Solostar PEN (NF)] 40 units SQ HS Insulin Lispro [Humalog] 0 unit SQ TIDCM 10/20/17 Mirtazapine [Remeron -] 30 mg PO HS #30 tablet 10/20/17 Trazodone HCl [Desyrel -] 150 mg PO HS #30 tablet 10/20/17 Family Disease History - Family Disease History Family Disease History: Diabetes: Grandparent (alcohol), Father (alive: 68: HTN) , Mother (alive: 67), Other: Grandparent, Father, Mother Review of Systems - Review of Systems Constitutional: reports: Chills, Diaphoresis, Fever Eyes: reports: Blurred Vision (she doesnt have her glasses). denies: Recent Change in Vision HENT: denies: Difficult Swallowing, Throat Pain Neck: denies: Lumps, Swollen Glands Cardiovascular: denies: Chest Pain, Palpitations Respiratory: reports: Cough. denies: SOB Gastrointestinal: reports: Abdominal Pain, Bloating, Constipation, Diarrhea Genitourinary: denies: Burning, Discharge Musculoskeletal: reports: Extremity Pain, Joint Swelling (right toe diabetic ulcer) Integumentary: denies: Lesions, Rash 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: reports: Dizziness, Numbness Endocrine: reports: Excessive Sweating, Increased Hunger Hematology/Lymphatic: denies: Easily Bruised, Excessive Bleeding Psychiatric: denies: Anxiety, Depression Physical Exam Vital Signs: Vital Signs Temperature 98.2 F 10/24/17 15:14 Pulse Rate 89 10/25/17 03:16 Respiratory Rate 16 10/25/17 03:16 Blood Pressure 128/85 10/25/17 03:16 O2 Sat by Pulse Oximetry (%) 97 10/25/17 03:16 Vital Signs Period Temp Pulse Resp BP Sys/Resendez Pulse Ox Last 24 Hr 97.8 F-98.2 F 84-89 16-20 106-128/66-85 96-100 Constitutional: Yes: Well Nourished, Anxious, Moderate Distress Eyes: Yes: Conjunctiva Clear, EOM Intact HENT: Yes: Atraumatic, Normocephalic Neck: Yes: Supple, Trachea Midline Cardiovascular: Yes: Regular Rate and Rhythm, S1, S2. No: JVD, Murmur Respiratory: Yes: Regular, CTA Bilaterally, Wheezes Gastrointestinal: Yes: Normal Bowel Sounds, Soft, Distention, Tenderness, Tenderness, Rebound, Vomiting. No: Hepatomegaly ...Rectal Exam: Yes: Deferred Renal/: No: CVA Tenderness - Left, CVA Tenderness - Right Extremities: Yes: Other (right foot). No: Cool, Cyanosis Wound/Incision: Yes: Draining, Other (right foot 4th webspace ulcer) 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: Yes: Alert, Oriented Psychiatric: Yes: Alert, Oriented, Agitated Labs: CBC, BMP 10/24/17 15:55 10/24/17 17:00 Imaging - Results X-ray: Image Reviewed (right foot no gas or FB) Cat Scan: Report Reviewed (inflamed appendix lateral/ retrocecal), Image Reviewed Problem List - Problems (1) Appendicitis Assessment/Plan: 47 you female with MMP and ply substatnce abuse presents with acute appendicitis for 1 week with peritonitis, hyperglucemia just dicharged from detox strict NPO and IVF hydration empiric IV antibiotics glycemic control OR for Laparoscopic appendectomy possible open appendectomy, the risk benefits and alternatives were discussed with the patient including andominal sepsis and given her late presentation. She verbalized her understanding and signed infromed consent. She had no questions for me Thank you for the opportunity to participate in the care of this patient. Code(s): K37 - UNSPECIFIED APPENDICITIS Qualifiers: Appendicitis type: acute appendicitis Acute appendicitis type: with localized peritonitis Qualified Code(s): K35.3 - Acute appendicitis with localized peritonitis (2) Diabetes mellitus, insulin dependent (IDDM), uncontrolled Code(s): E10.65 - TYPE 1 DIABETES MELLITUS WITH HYPERGLYCEMIA Qualifiers: (3) Alcohol dependence with uncomplicated withdrawal Code(s): F10.230 - ALCOHOL DEPENDENCE WITH WITHDRAWAL, UNCOMPLICATED (4) Chronic liver disease and cirrhosis Code(s): K74.60 - UNSPECIFIED CIRRHOSIS OF LIVER; K76.9 - LIVER DISEASE, UNSPECIFIED (5) Cocaine dependence Code(s): F14.20 - COCAINE DEPENDENCE, UNCOMPLICATED Qualifiers: Substance use status: uncomplicated Qualified Code(s): F14.20 - Cocaine dependence, uncomplicated (6) GERD (gastroesophageal reflux disease) Code(s): K21.9 - GASTRO-ESOPHAGEAL REFLUX DISEASE WITHOUT ESOPHAGITIS Qualifiers: Esophagitis presence: without esophagitis Qualified Code(s): K21.9 - Gastro -esophageal reflux disease without esophagitis (7) Hypertension Code(s): I10 - ESSENTIAL (PRIMARY) HYPERTENSION Qualifiers: Hypertension type: essential hypertension Qualified Code(s): I10 - Essential (primary) hypertension (8) Diabetic foot ulcer Code(s): E11.621 - TYPE 2 DIABETES MELLITUS WITH FOOT ULCER; L97.509 - NON- PRESSURE CHRONIC ULCER OTH PRT UNSP FOOT W UNSP SEVERITY Qualifiers: Diabetic foot ulcer location: toe Diabetes mellitus type: type 2 Laterality: right
[2017-10-25] MEDS ORDERED: INSULIN REGULAR HUMAN 100 UNITS/ML *VIAL IVPUSH ONE (03:51)
[2017-10-25] MEDS ORDERED: SODIUM CHLORIDE 0.9% 500 ML INFUS.BAG IV ONE (03:51)
[2017-10-25] MEDS ORDERED: INSULIN REGULAR 100 UNITS in SODIUM CHLORIDE 99 ML IVPB SCH (04:15)
--- NOTE | 2017-10-25 04:36 | HP ---
CHIEF COMPLAINT: missed doses on insulin PCP: does not have a PCP, she gets medications from hospital emergency departments HISTORY OF PRESENT ILLNESS: 47 yr old with uncontrolled IDDM and HTN presents due to generalized maliase and weakness after running out of insulin and other medication for past few days. denies drug use, vomiting, diarrhea, chest pain, sob, headache. she was treated several times for right foot osteomyelitis, most recently in the last 3 months ER course was notable for: (1) abd ct with appendicitis (2) dr. berry consulted Recent Travel: none PAST MEDICAL HISTORY: HTN IDDM type 1 GERD osteomyelitis on right foot and coccyx PAST SURGICAL HISTORY: tubal ligation TIPS 2009 for liver cirrhosis Social History: Smoking: denies Alcohol: denies - as per chart review, pt was recently discharged from [facility] Drugs: denies Family History: [place] Allergies fish derived Allergy (Severe, Verified 10/24/17 15:17) Swelling SEAFOOD = FISH + SHELLFISH shellfish derived Allergy (Severe, Verified 10/24/17 15:17) Swelling SEAFOOD = FISH + SHELLFISH No Known Drug Allergies Allergy (Verified 10/24/17 15:17) SEAFOOD Allergy (Severe, Uncoded 10/24/17 15:17) Swelling HOME MEDICATIONS: Home Medications Medication Instructions Recorded Lisinopril [Prinivil] 20 mg PO DAILY #30 tablet 11/27/16 Ranitidine [Zantac -] 150 mg PO BID #60 tablet 11/27/16 Gabapentin [Neurontin -] 400 mg PO TID #90 cap 04/09/17 Pregabalin [Lyrica] 150 mg PO HS 04/30/17 Insulin Glargine,Hum.rec.anlog 40 units SQ HS 10/20/17 [Lantus Solostar PEN (NF)] Insulin Lispro [Humalog] 0 unit SQ TIDCM 10/20/17 Mirtazapine [Remeron -] 30 mg PO HS #30 tablet 10/20/17 Trazodone HCl [Desyrel -] 150 mg PO HS #30 tablet 10/20/17 REVIEW OF SYSTEMS CONSTITUTIONAL: Present: generalized weakness, malaise, loss of appetite, Absent: fever, chills, diaphoresis, weight change HEENT: Absent: rhinorrhea, nasal congestion, throat pain, throat swelling, difficulty swallowing, mouth swelling, ear pain, eye pain, visual changes CARDIOVASCULAR: Absent: chest pain, syncope, palpitations, irregular heart rate, lightheadedness , peripheral edema RESPIRATORY: Absent: cough, shortness of breath, dyspnea with exertion, orthopnea, wheezing, GASTROINTESTINAL: Absent: abdominal pain, abdominal distension, nausea, vomiting, diarrhea, constipation, melena, hematochezia GENITOURINARY: Absent: dysuria, frequency, urgency, hesitancy, hematuria, flank pain, genital pain MUSCULOSKELETAL: Absent: myalgia, arthralgia, joint swelling, back pain, neck pain SKIN: Absent: rash, itching, pallor ENDOCRINE: Absent: unexplained weight gain, unexplained weight loss, heat intolerance, cold intolerance NEUROLOGIC: Absent: headache, focal weakness or paresthesias, dizziness, unsteady gait, mental status changes, bladder or bowel incontinence PSYCHIATRIC: Absent: anxiety, depression, suicidal or homicidal ideation, hallucinations. PHYSICAL EXAMINATION Vital Signs - 24 hr 10/24/17 10/24/17 10/25/17 14:49 15:14 03:16 Temperature 98.2 F 98.2 F Pulse Rate 88 88 Pulse Rate [ 89 Left Brachial] Respiratory 20 20 16 Rate Blood Pressure 112/70 112/70 Blood Pressure 128/85 [Left Arm] O2 Sat by Pulse 100 100 97 Oximetry (%) GENERAL: lethargic, easily arousable, NAD HEAD: Normal with no signs of trauma. EYES: Pupils equal, round and reactive to light, extraocular movements intact, sclera anicteric, conjunctiva clear. No lid lag. EARS, NOSE, THROAT: oropharynx clear without exudates. Moist mucous membranes. NECK: Normal range of motion, supple, diffuse thyromegaly without tenderness or nodules LUNGS: Breath sounds equal, clear to auscultation bilaterally. No wheezes, and no crackles. No accessory muscle use. HEART: Regular rate and rhythm, normal S1 and S2, +murmur in RUSB ABDOMEN: Soft, nontender, not distended, normoactive bowel sounds, no guarding, no rebound, no masses. No hepatomegaly or splenomegaly. MUSCULOSKELETAL: Normal range of motion at all joints. band-like erythema and tenderness around right ankle. No CVA tenderness. UPPER EXTREMITIES: 2+ radial pulses, warm, well-perfused. No cyanosis. No clubbing. No peripheral edema. LOWER EXTREMITIES: 2+ DP pulses, warm, well-perfused. No calf tenderness. No peripheral edema. right plantar under 1-2nd toes with hyperpigmented ulcer without drainage, underlying fluctuance or erythema Laboratory Results - last 24 hr 10/24/17 10/24/17 10/24/17 15:42 15:55 15:55 WBC 3.5 L RBC 4.01 Hgb 12.1 Hct 37.3 MCV 93.0 MCH 30.2 MCHC 32.4 RDW 17.5 H Plt Count 169 MPV 9.1 D Neutrophils % 51.0 Lymphocytes % 32.3 D Monocytes % 16.6 H Eosinophils % 0.0 Basophils % 0.1 PT with INR INR PTT (Actin FS) Puncture Site ABG pH ABG pCO2 at Pt Temp ABG pO2 at Pt Temp ABG HCO3 ABG O2 Sat (Measured) ABG O2 Content ABG Base Excess Giovanni Test Carboxyhemoglobin Methemoglobin Oxygen Flow Rate Sodium Cancelled Potassium Cancelled Chloride Cancelled Carbon Dioxide Cancelled Anion Gap Cancelled BUN Cancelled Creatinine Cancelled Creat Clearance w eGFR Cancelled Random Glucose Cancelled Calcium Cancelled Total Bilirubin Cancelled AST Cancelled ALT Cancelled Alkaline Phosphatase Cancelled Ammonia Total Protein Cancelled Albumin Cancelled Urine Color Straw Urine Appearance Clear Urine pH 6.0 Ur Specific [place] 1.028 Urine Protein Negative Urine Glucose (UA) 3+ H Urine Ketones Negative Urine Blood Negative Urine Nitrite Negative Urine Bilirubin Negative Urine Urobilinogen Negative Ur Leukocyte Esterase Negative Urine HCG, Qual Alcohol, Quantitative Acetone, Qual Cancelled Blood Type Antibody Screen 10/24/17 10/24/17 10/24/17 15:55 15:55 16:00 WBC RBC Hgb Hct MCV MCH MCHC RDW Plt Count MPV Neutrophils % Lymphocytes % Monocytes % Eosinophils % Basophils % PT with INR INR PTT (Actin FS) Puncture Site ABG pH ABG pCO2 at Pt Temp ABG pO2 at Pt Temp ABG HCO3 ABG O2 Sat (Measured) ABG O2 Content ABG Base Excess Giovanni Test Carboxyhemoglobin Methemoglobin Oxygen Flow Rate Sodium Potassium Chloride Carbon Dioxide Anion Gap BUN Creatinine Creat Clearance w eGFR Random Glucose Calcium Total Bilirubin AST ALT Alkaline Phosphatase Ammonia 105.96 H Total Protein Albumin Urine Color Urine Appearance Urine pH Ur Specific [place] Urine Protein Urine Glucose (UA) Urine Ketones Urine Blood Urine Nitrite Urine Bilirubin Urine Urobilinogen Ur Leukocyte Esterase Urine HCG, Qual Negative Alcohol, Quantitative < 5.0 Acetone, Qual Blood Type Antibody Screen 10/24/17 10/24/17 10/24/17 16:02 17:00 17:00 WBC RBC Hgb Hct MCV MCH MCHC RDW Plt Count MPV Neutrophils % Lymphocytes % Monocytes % Eosinophils % Basophils % PT with INR 11.70 INR 1.04 PTT (Actin FS) 29.9 Puncture Site ABG pH ABG pCO2 at Pt Temp ABG pO2 at Pt Temp ABG HCO3 ABG O2 Sat (Measured) ABG O2 Content ABG Base Excess Giovanni Test Carboxyhemoglobin Methemoglobin Oxygen Flow Rate Sodium 133 L Potassium 5.0 D Chloride 102 Carbon Dioxide 24 Anion Gap 7 L BUN 13 Creatinine 0.8 D Creat Clearance w eGFR > 60 Random Glucose 690 H* D Calcium 8.5 Total Bilirubin 0.8 D AST 44 H D ALT 64 Alkaline Phosphatase 204 H Ammonia Total Protein 6.4 Albumin 2.0 L Urine Color Urine Appearance Urine pH Ur Specific [place] Urine Protein Urine Glucose (UA) Urine Ketones Urine Blood Urine Nitrite Urine Bilirubin Urine Urobilinogen Ur Leukocyte Esterase Urine HCG, Qual Alcohol, Quantitative Acetone, Qual Negative L Blood Type O NEGATIVE Antibody Screen Negative 10/24/17 10/24/17 17:00 18:00 WBC RBC Hgb Hct MCV MCH MCHC RDW Plt Count MPV Neutrophils % Lymphocytes % Monocytes % Eosinophils % Basophils % PT with INR INR PTT (Actin FS) Puncture Site Right radial ABG pH 7.45 ABG pCO2 at Pt Temp 34.7 L ABG pO2 at Pt Temp 118.0 H D ABG HCO3 23.4 ABG O2 Sat (Measured) 99.2 H ABG O2 Content 15.0 ABG Base Excess 0.2 Giovanni Test Positive Carboxyhemoglobin 2.0 Methemoglobin 0.4 Oxygen Flow Rate No Sodium Potassium Chloride Carbon Dioxide Anion Gap BUN Creatinine Creat Clearance w eGFR Random Glucose Calcium Total Bilirubin AST ALT Alkaline Phosphatase Ammonia Total Protein Albumin Urine Color Urine Appearance Urine pH Ur Specific [place] Urine Protein Urine Glucose (UA) Urine Ketones Urine Blood Urine Nitrite Urine Bilirubin Urine Urobilinogen Ur Leukocyte Esterase Urine HCG, Qual Alcohol, Quantitative < 5.0 Acetone, Qual Blood Type Antibody Screen ASSESSMENT/PLAN: 47 yr old woman with a hx of polysubstance, recently discharged from [facility] s /p detox with referral to rehab presented with c/o abdominal pain and running out of her medications admitted for hyperglycemia and surgical evaluation of tubal inflammatory process on CT scanin RLQ. #Hyperglycemia - no acidosis, no anion gap, likely due to medication and dietary noncompliance - was started on insulin drip but changed to NISS when repeat labs showed BGM < 300 - NISS and BGM ACHS - diabetic diet - hemglobin a1c #Appendicitis - no fever, no wbc, seen on CT scan, benign abdominal exam, however seen on CT scan - surgical evaluation - #Cirrhosis - ammonia 105, patient given dose of lactulose in ED #Right planter surface medially with nonfluctuating hyperpigmented ulcer that is tender to palpation, as per patient to completed a 12-day course of po abx for osteomylelitis of the right foot - r/o osteo: foot xray - esr, crp - IV abx if erythema or pain progresses - Dr. Hurst consulted from podiatry for further evaluation #HTN 20mg po lisinopril #diabetic neuropathy lyrica neurontin #GERD zantac patient declined HIV test, says she does not engage in high risk behaviors and was recently tests 3 mo ago and was found negative lethargy possibly due to acute hepatic encephalopathy in the setting of acute change of mental status, improved with dose of lactulose in ED. (elevated ammonia level, AMS, hxof cirrhosis) Visit type - Emergency Visit Emergency Visit: Yes ED Registration Date: 10/25/17 Care time: The patient presented to the Emergency Department on the above date and was hospitalized for further evaluation of their emergent condition. - New Patient This patient is new to me today: Yes Date on this admission: 11/04/17 - Critical Care Critical Care patient: No
--- NOTE | 2017-10-25 04:43 | PN ---
Teaching Attending Note Name of Resident: Cristiane Mahoney ATTENDING PHYSICIAN STATEMENT I saw and evaluated the patient. I reviewed the resident's note and discussed the case with the resident. I agree with the resident's findings and plan as documented. SUBJECTIVE: OBJECTIVE: ASSESSMENT AND PLAN: hyperglycemic state without any ionic gap or acidosis - insulin sliding scale - repeat labs - aggressive IV fluid hydration - glargine 40 units HS (home dose) foot ulcer - start the patient on broad spectrum IV antibiotics - xray of the foot - pain management - CRP and ESR - MRI of the right foot - surgery evaluation for possible debridement pseudohyponatremia with electrolyte abnormalities - corrected with the correction of glucose
[2017-10-25] MEDS ORDERED: SODIUM CHLORIDE 1,000 ML IV SCH (04:45)
[2017-10-25 05:08] LABS: ANION GAP 7 (8-16); CALCIUM 7.7 mg/dL (8.5-10.1); CO2 23 mmol/L (21-32)
[2017-10-25 05:09] LABS: CREATININE 0.6 mg/dL (0.55-1.02); GLUCOSE,RANDOM 377 mg/dL (74-106)
[2017-10-25 05:10] LABS: MAGNESIUM 1.8 mg/dL (1.8-2.4); PHOSPHOROUS 3.2 mg/dL (2.5-4.9)
[2017-10-25 05:12] LABS: ACETONE SERUM NEGATIVE (NEGATIVE)
[2017-10-25] MEDS ORDERED: HEMOQUE TEST 1 EACH EACH ONE (05:48)
[2017-10-25] MEDS ORDERED: GABAPENTIN 400 MG CAPSULE (FP) PO SCH ×2 (06:00→14:00)
[2017-10-25] MEDS: INSULIN SLIDING SCALE (NOVOLOG) 1 VIAL SQ SCH ×4 (06:08→23:03)
[2017-10-25] MEDS ORDERED: LACTATED RINGERS SOLUTION 1,000 ML IV ONE (07:30)
[2017-10-25] MEDS ORDERED: LACTATED RINGERS SOLUTION 1000 ML INFUS.BAG IV ONE (07:30)
--- NOTE | 2017-10-25 09:09 | HOSP ---
Subjective - Review of Symptoms Events since last encounter: Patient is arousable , opens her eyes without any difficulty . Denies any pain at this time. Vital Signs Temperature 97.2 F L 10/25/17 09:05 Pulse Rate 77 10/25/17 09:05 Respiratory Rate 16 10/25/17 09:05 Blood Pressure 94/58 10/25/17 09:05 O2 Sat by Pulse Oximetry (%) 96 10/25/17 06:59 GENERAL: Awake, resting in bed post sx. HEAD: Normal with no signs of trauma. EYES: Pupils equal, round and reactive to light, extraocular movements intact, sclera anicteric, conjunctiva clear. EARS, NOSE, THROAT: Ears normal, oropharynx clear without exudates. Moist mucous membranes. NECK: Normal range of motion, supple without lymphadenopathy, JVD, or masses. LUNGS: Breath sounds equal, clear to auscultation bilaterally. No wheezes, and no crackles. No accessory muscle use. HEART: Regular rate and rhythm, normal S1 and S2 without murmur, rub or gallop. ABDOMEN: Soft, s/p appendectomy , positive for bowel sounds. NG,NR, No hepatomegaly or splenomegaly. MUSCULOSKELETAL: Normal range of motion at all joints. No bony deformities or tenderness. No CVA tenderness. EXTREMITIES: 2+ pulses, warm, well-perfused. No cyanosis. No peripheral edema. Positive for right pINky swelling. NEUROLOGICAL: Cranial nerves II-XII intact. Normal speech. gait is not observed. PSYCHIATRIC: Unable to access at this time , opens eyes . SKIN: Warm, dry, normal turgor, no rashes or lesions noted, normal capillary refill. CBCD WBC 3.5 K/mm3 (4.0-10.0) L 10/24/17 15:55 RBC 4.01 M/mm3 (3.60-5.2) 10/24/17 15:55 Hgb 12.1 GM/dL (10.7-15.3) 10/24/17 15:55 Hct 37.3 % (32.4-45.2) 10/24/17 15:55 MCV 93.0 fl (80-96) 10/24/17 15:55 MCHC 32.4 g/dl (32.0-36.0) 10/24/17 15:55 RDW 17.5 % (11.6-15.6) H 10/24/17 15:55 Plt Count 169 K/MM3 (134-434) 10/24/17 15:55 MPV 9.1 fl (7.5-11.1) D 10/24/17 15:55 CMP Sodium 141 mmol/L (136-145) 10/25/17 04:25 Potassium 4.1 mmol/L (3.5-5.1) 10/25/17 04:25 Chloride 111 mmol/L (98-107) H 10/25/17 04:25 Carbon Dioxide 23 mmol/L (21-32) 10/25/17 04:25 Anion Gap 7 (8-16) L 10/25/17 04:25 BUN 12 mg/dL (7-18) 10/25/17 04:25 Creatinine 0.6 mg/dL (0.55-1.02) D 10/25/17 04:25 Creat Clearance w eGFR > 60 (>60) 10/24/17 17:00 Random Glucose 377 mg/dL (74-106) H* D 10/25/17 04:25 Calcium 7.7 mg/dL (8.5-10.1) L 10/25/17 04:25 Total Bilirubin 0.8 mg/dL (0.2-1.0) D 10/24/17 17:00 AST 44 U/L (15-37) H D 10/24/17 17:00 ALT 64 U/L (12-78) 10/24/17 17:00 Alkaline Phosphatase 204 U/L (45-117) H 10/24/17 17:00 Total Protein 6.4 g/dl (6.4-8.2) 10/24/17 17:00 Albumin 2.0 g/dl (3.4-5.0) L 10/24/17 17:00 Home Medication List Medication Instructions Recorded Confirmed Type Pregabalin [Lyrica] 150 mg PO HS 04/30/17 10/24/17 History Insulin Glargine,Hum.rec.anlog 40 units SQ HS 10/20/17 10/24/17 History [Lantus Solostar PEN (NF)] Insulin Lispro [Humalog] 0 unit SQ TIDCM 10/20/17 10/24/17 History Active Medications Generic Name Dose Route Start Last Admin Trade Name Alex PRN Reason Stop Dose Admin Enoxaparin Sodium 40 mg 10/25/17 10:00 Lovenox - SQ DAILY SIRIA Gabapentin 400 mg 10/25/17 06:00 10/25/17 06:48 Neurontin - PO Not Given TID SIRIA Sodium Chloride 1,000 mls @ 100 mls/hr 10/25/17 04:45 10/25/17 05:03 Normal Saline - IV 100 mls/hr ASDIR SIRIA Administration Insulin Aspart 1 vial 10/25/17 05:45 10/25/17 06:08 Novolog Vial Sliding Scale - SQ 8 unit ACHS SIRIA Administration Protocol Lisinopril 20 mg 10/25/17 10:00 Prinivil PO DAILY SIRIA Mirtazapine 30 mg 10/25/17 22:00 Remeron - PO HS SIRIA Pregabalin 150 mg 10/25/17 22:00 Lyrica - PO HS SIRIA Ranitidine HCl 150 mg 10/25/17 10:00 Zantac - PO BID SIRIA A/P: 47 yo F h/o cocaine and alcohol abuse, HTN, GERD, liver cirrhosis, pancreatitis and IDDM type 1 admitted to med-surg inpatient service for altered mental status , and was found to have elevated ammonia level. #POD 0 ; laparoscopic appendectomy with negative findings. # Acute hyperglycemia , non ionic gap on q3h sliding scale with coverage, IVF continue # pseudohyponatremia due to elevated blood sugar, will repeat the level in am , tid , will continue IVF # Diabetic right nonhealing foot ulcer; MRI (05/2017) equivocal for osteo, Podiatry consult #Right pinky with swelling will get ID to see the patient. # Acute change of mental status, improving , most likely due to elevated ammonia level ,s/p lactulose check ammonia level in am. was found to have ammonia of 105, patient given dose of lactulose in ED #Liver Cirrhosis presented with acute change of MS ,was found to have ammonia level of 105. given lactulose #Right planter surface medially with nonfluctuating hyperpigmented ulcer that is tender to palpation, as per patient to completed a 12-day course of po abx for osteomylelitis of the right foot, Xray of the foot, esr, crp. Dr. Hurst consulted from podiatry for further evaluation #HTN 20mg po lisinopril #diabetic neuropathy lyrica, neurontin # Type I dm ;Hyperglycemia; noncompliant , on IVF and sliding scale with coverage #Liver cirrhosis with chronic portal vein thrombosis, s/p TIPS procedure 2009 # HTN controlled continue lisinporil DVT Prophylaxis lovenox GI Px: home zantac Physical Examination Vital Signs: Vital Signs Temperature 97.2 F L 10/25/17 09:05 Pulse Rate 77 10/25/17 09:05 Respiratory Rate 16 10/25/17 09:05 Blood Pressure 94/58 10/25/17 09:05 O2 Sat by Pulse Oximetry (%) 96 10/25/17 06:59 Labs: CBC, BMP 10/24/17 15:55 10/25/17 04:25
[2017-10-25] MEDS ORDERED: LIDOCAINE HCL/PF 2% SDV 5ML VIAL ONE (09:32)
[2017-10-25] MEDS ORDERED: ONDANSETRON 4 MG/2 ML VIAL ONE (09:32)
[2017-10-25] MEDS ORDERED: ROCURONIUM BROMIDE 50 MG/5 ML VIAL ONE (09:32)
[2017-10-25] MEDS ORDERED: fentaNYL CITRATE 250 MCG/5 ML VIAL ONE (09:32)
[2017-10-25] MEDS ORDERED: DEXAMETHASONE SOD PHOSPHATE 4 MG/1 ML VIAL ONE (09:32)
[2017-10-25] MEDS ORDERED: SUCCINYLCHOLINE CHLORIDE 200 MG/10 ML VIAL ONE (09:32)
[2017-10-25] MEDS ORDERED: KETOROLAC TROMETHAMINE 30 MG/1 ML VIAL ONE (09:32)
[2017-10-25] MEDS ORDERED: BUPIVACAINE HCL/PF 0.5% (5MG/ML) 10 ML VIAL ONE (09:43)
[2017-10-25] MEDS ORDERED: BUPIVACAINE HCL/PF 0.5% (5MG/ML) 10 ML VIAL IJ ONE (09:51)
[2017-10-25] MEDS ORDERED: RANITIDINE HCL 150 MG TABLET (FP) PO SCH ×2 (10:00→22:00)
[2017-10-25] MEDS ORDERED: ENOXAPARIN NA (PORCINE) 40 MG/0.4 ML DISP.SYRIN SQ SCH (10:00)
[2017-10-25] MEDS ORDERED: LISINOPRIL 20 MG TABLET (FP) PO SCH (10:00)
[2017-10-25] MEDS ORDERED: NEOSTIGMINE METHYLSULFATE 0.5 MG/ML - 10 ML MDV ONE (11:02)
[2017-10-25] MEDS ORDERED: ONDANSETRON 4 MG/2 ML VIAL IVPUSH PRN (11:19)
[2017-10-25] MEDS ORDERED: oxyCODONE HCL 5 MG TABLET PO PRN (11:19)
[2017-10-25] MEDS ORDERED: PROMETHAZINE HCL 25 MG/1 ML VIAL IVPUSH PRN (11:19)
--- NOTE | 2017-10-25 11:22 | OP ---
Operative Note - Note: Operative Date: 10/25/17 Pre-Operative Diagnosis: acute appendicitis Operation: laparoscopic appendectomy Findings: non-inflamed appendix, implant on the small bowel, large amount of serous ascites Implants: none Post-Operative Diagnosis: Other (non-inflamed appearing appendix, no other pathology identiifed) Surgeon: Diomedes Manriquez Anesthesiologist/SHAPER AND PRESSER: Tor Torrez Anesthesia: General, Local (maricaine 0.5% 10ml ) Specimens Removed: appendix Estimated Blood Loss (mls): 10 Drains, Volume Out (mls): 500 (ruiz, removed post op) Fluid Volume Replaced (mls): 2,500 Operative Report Dictated: Yes
[2017-10-25] MEDS ORDERED: LACTATED RINGERS SOLUTION 1,000 ML IV SCH (11:30)
[2017-10-25] MEDS ORDERED: LACTATED RINGERS SOLUTION 1,000 ML/1,000 ML INFUS.BAG IV SCH (11:30)
--- NOTE | 2017-10-25 11:51 | PN ---
Progress Note, Physician Chief Complaint: abdominal pain History of Present Illness: 47 yo female PMH hypertension, diabetes, GERD, and liver failure, who presents to the emergency department with increased weakness and abdominal pain for worsening approximately 1 week. She is a poor historian on interview. s/p an uneventful laparoscopic appendectomy - Appendix appeared normal and no other major pathology was identified. She is stable post operatively - Current Medication List Current Medications: Active Medications Enoxaparin Sodium (Lovenox -) 40 mg SQ DAILY SIRIA Gabapentin (Neurontin -) 400 mg PO TID SIRIA Lactated Ringer's (Lactated Ringers Solution) 1,000 ml in 1,000 mls @ 83 mls/ hr IV ASDIR SIRIA Insulin Aspart (Novolog Vial Sliding Scale -) 1 vial SQ ACHS SIRIA PRN Reason: Protocol Lisinopril (Prinivil) 20 mg PO DAILY SIRIA Mirtazapine (Remeron -) 30 mg PO HS SIRIA Pregabalin (Lyrica -) 150 mg PO HS SIRIA Ranitidine HCl (Zantac -) 150 mg PO BID SIRIA - Objective Vital Signs: Vital Signs Temperature 97.2 F L 10/25/17 09:05 Pulse Rate 77 10/25/17 09:05 Respiratory Rate 16 10/25/17 09:05 Blood Pressure 94/58 10/25/17 09:05 O2 Sat by Pulse Oximetry (%) 96 10/25/17 06:59 Constitutional: Yes: Well Nourished, No Distress Respiratory: Yes: Regular, CTA Bilaterally Gastrointestinal: Yes: Normal Bowel Sounds, Soft, Other (incisons X3) 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: Yes: Alert, Oriented Psychiatric: Yes: Alert, Oriented Labs: CBC, BMP 10/24/17 15:55 10/25/17 04:25 INR, PTT INR 1.04 (0.82-1.09) 10/24/17 16:02 Problem List - Problems (1) Appendicitis Assessment/Plan: 47 you female with MMP and ply substance abuse presents with acute appendicitis for 1 week with peritonitis, hyperglycemia just discharged from detox. s/p Lap appendectomy She can resume diet as tolerated now empiric IV antibiotics glycemic control no follow-up labs needed adequate analgesia - avoid narcotic pain medication given abuse potential Consider GI evalution for IBD vs Meckel's diverticulum vs gasstroenteritis. If she is voiding and tolerating diet by morning she can be discharge from the perspective of surgery. Code(s): K37 - UNSPECIFIED APPENDICITIS Qualifiers: Appendicitis type: acute appendicitis Acute appendicitis type: with localized peritonitis Qualified Code(s): K35.3 - Acute appendicitis with localized peritonitis (2) Diabetes mellitus, insulin dependent (IDDM), uncontrolled Code(s): E10.65 - TYPE 1 DIABETES MELLITUS WITH HYPERGLYCEMIA Qualifiers: (3) Alcohol dependence with uncomplicated withdrawal Code(s): F10.230 - ALCOHOL DEPENDENCE WITH WITHDRAWAL, UNCOMPLICATED (4) Chronic liver disease and cirrhosis Code(s): K74.60 - UNSPECIFIED CIRRHOSIS OF LIVER; K76.9 - LIVER DISEASE, UNSPECIFIED (5) Cocaine dependence Code(s): F14.20 - COCAINE DEPENDENCE, UNCOMPLICATED Qualifiers: Substance use status: uncomplicated Qualified Code(s): F14.20 - Cocaine dependence, uncomplicated (6) GERD (gastroesophageal reflux disease) Code(s): K21.9 - GASTRO-ESOPHAGEAL REFLUX DISEASE WITHOUT ESOPHAGITIS Qualifiers: Esophagitis presence: without esophagitis Qualified Code(s): K21.9 - Gastro -esophageal reflux disease without esophagitis (7) Hypertension Code(s): I10 - ESSENTIAL (PRIMARY) HYPERTENSION Qualifiers: Hypertension type: essential hypertension Qualified Code(s): I10 - Essential (primary) hypertension (8) Diabetic foot ulcer Code(s): E11.621 - TYPE 2 DIABETES MELLITUS WITH FOOT ULCER; L97.509 - NON- PRESSURE CHRONIC ULCER OTH PRT UNSP FOOT W UNSP SEVERITY Qualifiers: Diabetic foot ulcer location: toe Diabetes mellitus type: type 2 Laterality: right
--- NOTE | 2017-10-25 12:11 | OP ---
DATE OF OPERATION: 10/25/2017 PREOPERATIVE DIAGNOSIS: Acute appendicitis. POSTOPERATIVE DIAGNOSIS: Normal-appearing appendix. ATTENDING PHYSICIAN: Diomedes Manriquez MD SOLAR DEVELOPMENT ENGINEER: None. ANESTHESIOLOGIST: Tor Torrez MD ANESTHESIA TYPE: General with local consisting of 0.5% Marcaine, a total of 10 mL given at the operative site. ESTIMATED BLOOD LOSS: 10 mL. URINE OUTPUT: 500 mL. INTRAVENOUS FLUIDS: 2500 mL. FINDINGS: Normal uninflamed-appearing appendix and implants on the small bowel. There is also a small amount of serous-colored ascites. INDICATIONS: The patient is a 47-year-old female with hypertension, diabetes, polysubstance abuse including cocaine and alcohol which she recently consumed within the last day, was discharged from detox rehab facility and presented to our emergency room 1 hour later after a binge of cocaine, noted to have abdominal pain that she reported for approximately 1 week in duration. The workup included a CAT scan that showed a tubular structure in the right lower quadrant which was consistent with an inflamed appendix or a loop of pathologic small bowel. The patient was examined and noted to have peritoneal signs, tenderness in the right lower quadrant with rebound, voluntary guarding. Given the consistent findings and the radiologic findings after review of the findings with the radiologist, the patient was counseled regarding the need for laparoscopic surgery and appendectomy. She was explained the risks, benefits, and alternatives for surgical procedure in full. She signed informed consent. She was given the opportunity to ask questions and have them answered to her satisfaction. She was then taken for the procedure. DESCRIPTION OF PROCEDURE: Patient was brought to the operating room, placed in supine position on the operating table with the left arm tucked and the right arm extended at 90 degrees perpendicular to the body's axis. The patient was induced with general anesthesia, endotracheally intubated. Patient had received scheduled antibiotics preoperatively. After uneventful intubation, the anterior abdominal wall was prepped and draped in the standard surgical fashion, blocking the lower portion of the abdomen for laparoscopic exploration. The umbilicus was noted to have a healed scar, at which point decision was made to make an entry into the umbilicus above where it was free and clear of scar. She had the additional trocar sites marked in the left lower quadrant and the suprapubic position. A formal time- out was completed, at which point we proceeded then with the skin incision, a 15-blade at the supraumbilical port. This was incised with 15-blade scalpel, deepened and widened through subcutaneous tissue with Bovie cautery to the median raphe of the rectus sheath. We then proceeded with identifying the fascia and elevating with a Zo. Bovie cautery was used to enter the fascia, which appeared fibrosed. The entry was atraumatic, and a 12-mm Darrin was introduced into the abdomen. Pneumoperitoneum was established to 15 mmHg, at which point the camera was introduced in the abdomen to inspect. The other 5mm ports were inserted under direct visualization. There appeared to be a moderate amount of serous ascites that was suctioned clear, at which point we proceeded then with inspection of the small bowel. There were three white serosal implants on the small bowel in the right lower quadrant. After mobilizing the small bowel, it was clear that no other pathology was identified besides the implant, which was photographed, and the serous ascites. The appendix was identified on the cecum, appeared to be relatively collapsed and uninflamed. The decision was made to take the appendix en bloc as no other pathology could be identified. We then proceeded with dissection of the base of the appendix at the cecum and the mesoappendix. They were retracted and with a [place] retractor, creating a window between the 2 structures. We then proceeded with stapling across the base with a blue load Endo JITENDRA stapler from the umbilicus, followed by a white vascular load across the mesoappendix. Once the appendix was transected, there appeared to be only minimal blood loss in the field. It was suctioned clear, at which point the appendix was retrieved from the 12-mm Darrin port with an EndoCatch bag. The small bowel was run from the ileocecal value proximally approximately 3 feet and white serosal implants were noted and photographed. No other intestinal abnormalities were noted. After retrieving the appendix from the umbilicus, pneumoperitoneum was restored and the abdomen was again inspected. [place] were intact. No additional pathology could be identified. The site was gently irrigated and then omentum placed in its place. The remainder of the port sites were removed under direct visualization in the left lower quadrant and the supraumbilical position. The skin was then cleaned and then closed with #4-0 Monocryl. The anterior fascia at the Darrin port was closed with a [id number] Vicryl #0, to ablate the opening in the umbilical fascia defectl. The skin was cleaned after closure in subcuticular fashion with 4-0 Monocryl. Steri-Strips and sterile dressings were placed. The patient was awoken from general anesthesia, having tolerated the procedure well. All counts were correct, and the appendix was sent for pathologic diagnosis. MD MARCI [id number] MTDD
--- NOTE | 2017-10-25 14:26 | CONSULT ---
Consult - text type - Consultation Consultation Note: Podiatry Consultation: 47 year old IDDM F well known to me from prior admissions, admitted currently for uncontrolled blood glucose and abdominal pain. S/p Lap appendectomy. Found to have blood glucose in 700s upon admission. She states she ran out of insulin over the past few days. Does not follow up regularly at wound care for R foot DM ulcer. Denies F/V/N/C/SOB/CP. Afebrile, VSS. PMHx: IDDM, HTN, HLP, liver dx, polysubstance abuse Meds: noted ALL: shellfish WILMER: R foot: pedal pulses 1/4, TG wnl, CFT brisk to all toes. R sub-metatarsal diabetic ulcer epithelialized, no probing, no purulent drainage, no fluctuance, no periwound erythema, no ascending cellulitis, no signs of active infection. Minimal tenderness to palpation. WBC: 3.5 Blood Cx: pending Wound Cx (prior): MRSA Imp: 47 year old IDDM F with R foot diabetic ulcer 1. No sx intervention necessary, will heal well with local wound care. 2. Bactroban + DSD to R foot 3. Glycemic control 4. Upon discharge, can f/u in wound healing center. Thank you for the courtesy of this consultation. Elgin Hurst DPM
[2017-10-25] MEDS ORDERED: INSULIN SLIDING SCALE (NOVOLOG) 1 VIAL SQ SCH ×2 (16:30)
[2017-10-25] MEDS: LACTATED RINGERS SOLUTION 1,000 ML/1,000 ML INFUS.BAG IV SCH ×2 (18:21→22:48)
[2017-10-25 18:29] LABS: ANION GAP 8 (8-16); CALCIUM 7.2 mg/dL (8.5-10.1); CO2 21 mmol/L (21-32); CREATININE 0.7 mg/dL (0.55-1.02); MAGNESIUM 1.6 mg/dL (1.8-2.4); PHOSPHOROUS 2.4 mg/dL (2.5-4.9)
[2017-10-25 18:35] LABS: GLUCOSE,RANDOM 332 mg/dL (74-106)
[2017-10-25] MEDS ORDERED: INSULIN (NOVOLOG) ASPART 100 UNITS/ML 10ML VIAL ONE (19:53)
[2017-10-25] MEDS ORDERED: PREGABALIN 75 MG CAPSULE PO SCH ×2 (22:00)
[2017-10-25] MEDS ORDERED: MIRTAZAPINE 30 MG TABLET (FP) PO SCH (22:00)
[2017-10-25] MEDS ORDERED: MIRTAZAPINE 15 MG TABLET (FP) PO SCH (22:00)
[2017-10-26] MEDS: INSULIN SLIDING SCALE (NOVOLOG) 1 VIAL SQ SCH ×9 (01:42→23:06)
[2017-10-26] MEDS: LACTATED RINGERS SOLUTION 1,000 ML/1,000 ML INFUS.BAG IV SCH (04:41)
[2017-10-26 08:34] LABS: MAGNESIUM 1.6 mg/dL (1.8-2.4); PHOSPHOROUS 2.4 mg/dL (2.5-4.9)
[2017-10-26] MEDS: ENOXAPARIN NA (PORCINE) 40 MG/0.4 ML DISP.SYRIN SQ SCH (09:39)
[2017-10-26] MEDS ORDERED: LISINOPRIL 20 MG TABLET (FP) PO SCH (10:00)
[2017-10-26] MEDS ORDERED: IBUPROFEN 400 MG TABLET (FP) PO PRN (13:15)
[2017-10-26] MEDS ORDERED: oxyCODONE HCL 5 MG TABLET ONE (13:56)
[2017-10-26] MEDS: oxyCODONE HCL 5 MG TABLET PO PRN ×2 (13:57→23:04)
[2017-10-26] MEDS ORDERED: Insulin (LOG) Aspart 100 UNITS/ML VIAL SQ ONE ×2 (14:00→16:45)
--- NOTE | 2017-10-26 14:49 | PN ---
Progress Note (short form) - Note Progress Note: Patient seen and examined s/p Laparoscopic appendectomy POD#1 she is stable overnight without complain. reporting pain this morning. She is tolerating diet. Reports having voided as well. Problem List - Problems (1) Appendicitis Assessment/Plan: 47 you female with MMP and ply substance abuse presents with acute appendicitis for 1 week with peritonitis, hyperglycemia just discharged from detox. s/p Lap appendectomy POD #1 She can resume diet as tolerated now empiric IV antibiotics glycemic control no follow-up labs needed adequate analgesia - avoid narcotic pain medication given abuse potential Consider GI evalution for IBD vs Meckel's diverticulum vs gasstroenteritis. If she is voiding and tolerating diet by morning she can be discharge from the perspective of surgery. Code(s): K37 - UNSPECIFIED APPENDICITIS Qualifiers: Appendicitis type: acute appendicitis Acute appendicitis type: with localized peritonitis Qualified Code(s): K35.3 - Acute appendicitis with localized peritonitis (2) Diabetes mellitus, insulin dependent (IDDM), uncontrolled Code(s): E10.65 - TYPE 1 DIABETES MELLITUS WITH HYPERGLYCEMIA Qualifiers: (3) Alcohol dependence with uncomplicated withdrawal Code(s): F10.230 - ALCOHOL DEPENDENCE WITH WITHDRAWAL, UNCOMPLICATED (4) Chronic liver disease and cirrhosis Code(s): K74.60 - UNSPECIFIED CIRRHOSIS OF LIVER; K76.9 - LIVER DISEASE, UNSPECIFIED (5) Cocaine dependence Code(s): F14.20 - COCAINE DEPENDENCE, UNCOMPLICATED Qualifiers: Substance use status: uncomplicated Qualified Code(s): F14.20 - Cocaine dependence, uncomplicated (6) GERD (gastroesophageal reflux disease) Code(s): K21.9 - GASTRO-ESOPHAGEAL REFLUX DISEASE WITHOUT ESOPHAGITIS Qualifiers: Esophagitis presence: without esophagitis Qualified Code(s): K21.9 - Gastro -esophageal reflux disease without esophagitis (7) Hypertension Code(s): I10 - ESSENTIAL (PRIMARY) HYPERTENSION Qualifiers: Hypertension type: essential hypertension Qualified Code(s): I10 - Essential (primary) hypertension (8) Diabetic foot ulcer Code(s): E11.621 - TYPE 2 DIABETES MELLITUS WITH FOOT ULCER; L97.509 - NON- PRESSURE CHRONIC ULCER OTH PRT UNSP FOOT W UNSP SEVERITY Qualifiers: Diabetic foot ulcer location: toe Diabetes mellitus type: type 2 Laterality: right
--- NOTE | 2017-10-26 15:18 | PN ---
Progress Note (short form) - Note Progress Note: Patient is c/o having mild abdominal pain. Otherwise comfortable. Vital Signs Temperature 98.5 F 10/26/17 14:07 Pulse Rate 98 H 10/26/17 14:07 Respiratory Rate 20 10/26/17 14:07 Blood Pressure 139/74 10/26/17 14:07 O2 Sat by Pulse Oximetry (%) 98 10/26/17 09:00 GENERAL: Awake, resting in bed post sx. HEAD: Normal with no signs of trauma. EYES: Pupils equal, round and reactive to light, extraocular movements intact, sclera anicteric, conjunctiva clear. EARS, NOSE, THROAT: Ears normal, oropharynx clear without exudates. Moist mucous membranes. NECK: Normal range of motion, supple without lymphadenopathy, JVD, or masses. LUNGS: Breath sounds equal, clear to auscultation bilaterally. No wheezes, and no crackles. No accessory muscle use. HEART: Regular rate and rhythm, normal S1 and S2 positive, no murmur appreciated ,no rub or gallop. ABDOMEN: Soft, s/p appendectomy , positive for bowel sounds. NG,NR. MUSCULOSKELETAL: Normal range of motion at all joints. No bony deformities or tenderness. No CVA tenderness. EXTREMITIES: 2+ pulses, warm, well-perfused. No cyanosis. No peripheral edema. Positive for right pINky less swelling with less erythema today. NEUROLOGICAL: Cranial nerves II-XII intact. Normal speech. gait is stable. PSYCHIATRIC: normal speech, no SKIN: Warm, dry, normal turgor, no rashes or lesions noted, normal capillary refill. CBCD WBC 3.5 K/mm3 (4.0-10.0) L 10/24/17 15:55 RBC 4.01 M/mm3 (3.60-5.2) 10/24/17 15:55 Hgb 12.1 GM/dL (10.7-15.3) 10/24/17 15:55 Hct 37.3 % (32.4-45.2) 10/24/17 15:55 MCV 93.0 fl (80-96) 10/24/17 15:55 MCHC 32.4 g/dl (32.0-36.0) 10/24/17 15:55 RDW 17.5 % (11.6-15.6) H 10/24/17 15:55 Plt Count 169 K/MM3 (134-434) 10/24/17 15:55 MPV 9.1 fl (7.5-11.1) D 10/24/17 15:55 CMP Sodium 142 mmol/L (136-145) 10/25/17 17:40 Potassium 4.6 mmol/L (3.5-5.1) 10/25/17 17:40 Chloride 113 mmol/L (98-107) H 10/25/17 17:40 Carbon Dioxide 21 mmol/L (21-32) 10/25/17 17:40 Anion Gap 8 (8-16) 10/25/17 17:40 BUN 17 mg/dL (7-18) D 10/25/17 17:40 Creatinine 0.7 mg/dL (0.55-1.02) 10/25/17 17:40 Creat Clearance w eGFR > 60 (>60) 10/24/17 17:00 Random Glucose 332 mg/dL (74-106) H* 10/25/17 17:40 Calcium 7.2 mg/dL (8.5-10.1) L 10/25/17 17:40 Total Bilirubin 0.8 mg/dL (0.2-1.0) D 10/24/17 17:00 AST 44 U/L (15-37) H D 10/24/17 17:00 ALT 64 U/L (12-78) 10/24/17 17:00 Alkaline Phosphatase 204 U/L (45-117) H 10/24/17 17:00 Total Protein 6.4 g/dl (6.4-8.2) 10/24/17 17:00 Albumin 2.0 g/dl (3.4-5.0) L 10/24/17 17:00 Current Medications Generic Name Dose Route Start Last Admin Trade Name Freq PRN Reason Stop Dose Admin Enoxaparin Sodium 40 mg 10/26/17 10:00 10/26/17 09:39 Lovenox - SQ 40 mg DAILY SIRIA Administration Insulin Aspart 1 vial 10/25/17 16:37 10/26/17 14:01 Novolog Vial Sliding Scale - SQ 12 unit Q3H SIRIA Administration Protocol Oxycodone HCl 5 mg 10/26/17 13:52 10/26/17 13:57 Roxicodone - PO 5 mg Q6H PRN Administration PAIN Home Medications Medication Instructions Recorded Lisinopril [Prinivil] 20 mg PO DAILY #30 tablet 11/27/16 Ranitidine [Zantac -] 150 mg PO BID #60 tablet 11/27/16 Gabapentin [Neurontin -] 400 mg PO TID #90 cap 04/09/17 Pregabalin [Lyrica] 150 mg PO HS 04/30/17 Insulin Glargine,Hum.rec.anlog 40 units SQ HS 10/20/17 [Lantus Solostar PEN (NF)] Insulin Lispro [Humalog] 0 unit SQ TIDCM 10/20/17 Mirtazapine [Remeron -] 30 mg PO HS #30 tablet 10/20/17 Trazodone HCl [Desyrel -] 150 mg PO HS #30 tablet 10/20/17 A/P: 47 yo F h/o cocaine and alcohol abuse, HTN, GERD, liver cirrhosis, pancreatitis and IDDM type 1 admitted to med-surg inpatient service for altered mental status , and was found to have elevated ammonia level. #POD 1 ; laparoscopic appendectomy with negative findings. # Type I dm ;Hyperglycemia; noncompliant , continue with on IVF and sliding scale with coverage #Right pinky with erythema and swelling will get ID to see the patient . #pseudohyponatremia improved post IVF # Acute change of mental status due to elevated ammonia with level of 105 in ED. s/p Lactulose , improved . Back to her normal self. #Liver Cirrhosis presented with acute change of MS ,was found to have ammonia level of 105. given lactulose improved back to her normal self. with hx of Liver cirrhosis with chronic portal vein thrombosis, s/p TIPS procedure 2009 #Right planter surface medially with nonfluctuating hyperpigmented ulcer that is tender to palpation, as per patient to completed a 12-day course of po abx for osteomylelitis of the right foot, Xray of the foot, esr, crp. Dr. Hurst consulted from podiatry for further evaluation Diabetic right nonhealing foot ulcer; MRI (05/2017) equivocal for osteo, Podiatry consult to follow up # HTN controlled continue lisinporil #diabetic neuropathy lyrica, neurontin DVT Prophylaxis lovenox GI Px: home zantac Visit type - Emergency Visit Emergency Visit: Yes ED Registration Date: 10/25/17 Care time: The patient presented to the Emergency Department on the above date and was hospitalized for further evaluation of their emergent condition. - New Patient This patient is new to me today: No - Critical Care Critical Care patient: No
--- NOTE | 2017-10-26 15:35 | PN ---
Progress Note (short form) - Note Progress Note: ANESTHESIOLOGY POST-OP CHECK 47F s/p lap appy under general anesth POD#1. Ambulating, voiding, tolerating PO. Denies N/V. Pain 10/10 around umbilicus and states pain meds not helping. Gen: Awake, alert, watching television No apparent anesthesia complications. May increse oxycodone to 10 with IV morphine rescue doses. She is a chrionic pain patient and polysubstance abuser and may benefit from chronic pain consult. Continue management as per primary team
[2017-10-26] MEDS ORDERED: LACTATED RINGERS SOLUTION 1,000 ML/1,000 ML INFUS.BAG IV SCH (16:45)
--- NOTE | 2017-10-26 16:58 | PN ---
Progress Note (short form) - Note Progress Note: ID Consult dictated R 5th digit paronychial infection Diabetes mellitus- uncontrolled S/P appendectomy Non- healing R foot ulcer/ Hx osteomyelitis - treated Polysubstance abuse Leukopenia Chronic liver disease Start cefazolin 1gmIVPB q8h HIV testing ( gives verbal consent)
[2017-10-26] MEDS ORDERED: CEFAZOLIN 1 GM in DEXTROSE 5%-WATER - 50 ML IVPB SCH (17:00)
[2017-10-26] MEDS: CEFAZOLIN 1 GM PUSH 1 GM/10 ML DISP.SYRIN IVPUSH SCH (18:21)
[2017-10-26] MEDS ORDERED: INSULIN (NOVOLOG) ASPART 100 UNITS/ML 10ML VIAL SQ ONE ×4 (20:00→23:45)
[2017-10-26] MEDS ORDERED: ACETAMINOPHEN 1000 MG/100 ML VIAL (NON FORMULARY) IVPB ONE (20:09)
[2017-10-26] MEDS ORDERED: SODIUM CHLORIDE 500 ML IV STA (20:12)
[2017-10-26] MEDS ORDERED: SODIUM CHLORIDE 1,000 ML IV STA (20:14)
[2017-10-26] MEDS ORDERED: SODIUM CHLORIDE 1,000 ML IV SCH (21:45)
[2017-10-26 22:38] LABS: ANION GAP 8 (8-16); CO2 23 mmol/L (21-32); CREATININE 0.7 mg/dL (0.55-1.02); MAGNESIUM 1.6 mg/dL (1.8-2.4); PHOSPHOROUS 2.3 mg/dL (2.5-4.9)
[2017-10-26 22:39] LABS: CALCIUM 6.9 mg/dL (8.5-10.1); GLUCOSE,RANDOM 471 mg/dL (74-106)
[2017-10-26] MEDS ORDERED: POTASSIUM PHOSPHATE 30 MM in DEXTROSE 5%-WATER - 240 ML IVPB ONE (22:41)
[2017-10-26] MEDS ORDERED: MAGNESIUM OXIDE 400 MG TABLET (FP) PO ONE (22:42)
[2017-10-26] MEDS ORDERED: NAPH,MB-DB/K PH,MBDB POWDER PACKET PO ONE (22:43)
[2017-10-26] MEDS ORDERED: INSULIN DETEMIR 100 UNITS/ML MDV SQ ONE (23:00)
[2017-10-26] MEDS ORDERED: POTASSIUM CHLORIDE ORAL LIQUID 20 MEQ/15 ML PO ONE (23:00)
--- NOTE | 2017-10-26 23:47 | CONS ---
DATE OF CONSULTATION: 10/26/2017 CHIEF COMPLAINT: The patient is a 47-year-old female with history of insulin-dependent diabetes mellitus, polysubstance abuse, evaluated for right 5th digit paronychial infection. HISTORY OF PRESENT ILLNESS: She was admitted to the hospital on October 24, 2017, with complaints of several day history of abdominal pain. She was noted to have a markedly elevated blood sugar and altered mental status. The patient was treated for uncontrolled diabetes mellitus and decompensated chronic liver disease. CT scan of the abdomen and pelvis was consistent with acute appendicitis. She was taken to the operating room where a laparoscopic appendectomy was performed. Her course was complicated by development of right 5th digit paronychial infection for which we were consulted. She complains of pain. She denies any traumatic injury and denies any associated fever or chills. PAST MEDICAL HISTORY: Positive for insulin-dependent diabetes mellitus with history of noncompliance, hypertension, gastroesophageal reflux, chronic liver disease, history of nonhealing right foot ulcer, chronic osteomyelitis of the sacrum in 2010. PAST SURGICAL HISTORY: Status post cholecystectomy. ALLERGIES: No known allergies. MEDICATIONS: Lisinopril, Zantac, Neurontin, Lyrica, Humalog, Remeron, trazodone. SOCIAL HISTORY: Positive for polysubstance abuse. The patient states that she has been tested for HIV in the recent past and was negative. SYSTEMS REVIEW: Neurologic: Positive for altered mental status/hepatic encephalopathy. Cardiac: Negative for chest pain or palpitations. Respiratory: Negative for cough or sputum production. Gastrointestinal: As per HPI. Genitourinary: Negative for urinary tract infection. LABORATORY DATA: White count is 3.5, hematocrit 37.3, platelet count 169, BUN 10, creatinine 0.7, glucose 471. Urinalysis: Negative leukocyte esterase. Blood culture is negative. PHYSICAL EXAMINATION: General: She is awake and alert. She is not acutely toxic appearing. Vital signs: Temperature is 98.6, blood pressure 140/70, pulse 94 and regular, respirations 20 per minute. HEENT: Sclerae: Anicteric. Heart: S1, S2. Lungs: Clear. Abdomen: Soft. No tenderness elicited. Laparoscopic surgical wounds noted. Extremities: Negative for edema. There is a chronic right plantar ulceration present over the 5th metatarsal head. No purulent drainage or erythema. There is swelling and erythema present in the right 5th digit paronychial area with tenderness to palpation, slight fluctuance. No expressible pus. No lymphangitic streaking. IMPRESSION: 1. Right 5th digit paronychia infection. 2. Uncontrolled diabetes mellitus. 3. Status post appendectomy. 4. Nonhealing right foot ulcer/history of osteomyelitis. 5. History of polysubstance abuse. 6. Leukopenia. 7. Chronic liver disease. PLAN: Start cefazolin 1 g IV piggyback every 8 hours for treatment of right 5th digit paronychial infection. Patient reports recently completing a course of IV antibiotic therapy for chronic osteomyelitis of the right foot. Continue local wound care and podiatry follow up. HIV testing, patient gives verbal consent. Thank you for the kind referral. SALLY HANNAH M.D. [id number]
[2017-10-27] MEDS: CEFAZOLIN 1 GM PUSH 1 GM/10 ML DISP.SYRIN IVPUSH SCH ×2 (02:20→11:00)
[2017-10-27] MEDS: INSULIN SLIDING SCALE (NOVOLOG) 1 VIAL SQ SCH ×5 (02:27→13:48)
[2017-10-27] MEDS ORDERED: SODIUM CHLORIDE 1,000 ML IV SCH (04:34)
--- NOTE | 2017-10-27 06:40 | PN ---
Physical Exam: SUBJECTIVE: Patient seen and examined by me this AM - Endorses persistent nausea, chills. No major overnight events. Continues to complain of surgical site abdominal pain. - Denies any URIBE/dizziness, SOB, cough, CP, peripheral edema, diarrhea, dysuria, new rashes. Able to ambulate. Still with general malaise, poor sleep, PO intake. - Pt states she takes 40u lantus qHs at home. Also endorses a hx of type 1 diabetes. Father and mother, grandparents with diabetes. OBJECTIVE: Vital Signs Intake & Output 10/24/17 10/25/17 10/26/17 10/27/17 23:59 23:59 23:59 23:59 Intake Total 4160 4505 Output Total 525 Balance 3635 4505 Weight 75.296 kg 53.524 kg Period Temp Pulse Resp BP Sys/Resendez Pulse Ox Last 24 Hr 98 F-98.6 F 77-98 20-20 122-144/68-90 98-98 GENERAL: The patient is awake, alert, and fully oriented, in mild distress in a hospital gown. HEAD: NCAT EYES: PERRL, extraocular movements intact, sclera anicteric, conjunctiva clear. No ptosis. ENT: Ears normal, nares patent, oropharynx clear without exudates, moist mucous membranes. NECK: Trachea midline, supple. No JVD. Possible thyromegaly. LUNGS: Breath sounds equal, clear to auscultation bilaterally, no wheezes, no crackles, no accessory muscle use. HEART: Regular rate and rhythm, S1, S2 without murmur, rub or gallop. ABDOMEN: Umbilical, LLQ laparotomy incision sites. C/d/i. No erythema. Remainder of abdomen soft, nondistended, normoactive bowel sounds, no guarding, no rebound. Upper EXTREMITIES: 2+ pulses, warm, well-perfused, no edema. Right pinky w/ trace swelling, erythema Lower extremities: 2+ pulses. Painful to palpation on soles BL. R non-healed ulcer between 2nd and 3rd digits on bottom of foot. R hyperemic patch on anterior guzman. No LE edema NEUROLOGICAL: Cranial nerves II through XII grossly intact. Normal speech, normal gait. PSYCH: Constricted affect. Laboratory Results - last 24 hr CBC, BMP CBC, BMP 10/24/17 15:55 10/27/17 06:05 ABG Results ABG pH 7.45 (7.35-7.45) 10/24/17 18:00 ABG pCO2 at Pt Temp 34.7 mmHg (35-45) L 10/24/17 18:00 ABG pO2 at Pt Temp 118.0 mmHg (80-100) H D 10/24/17 18:00 ABG HCO3 23.4 meq/L (22-26) 10/24/17 18:00 ABG O2 Sat (Measured) 99.2 % (90-98.9) H 10/24/17 18:00 ABG O2 Content 15.0 % vol (15-22) 10/24/17 18:00 ABG Base Excess 0.2 meq/l (-2-2) 10/24/17 18:00 Laboratory Last Values WBC 3.5 K/mm3 (4.0-10.0) L 10/24/17 15:55 RBC 4.01 M/mm3 (3.60-5.2) 10/24/17 15:55 Hgb 12.1 GM/dL (10.7-15.3) 10/24/17 15:55 Hct 37.3 % (32.4-45.2) 10/24/17 15:55 MCV 93.0 fl (80-96) 10/24/17 15:55 MCH 30.2 pg (25.7-33.7) 10/24/17 15:55 MCHC 32.4 g/dl (32.0-36.0) 10/24/17 15:55 RDW 17.5 % (11.6-15.6) H 10/24/17 15:55 Plt Count 169 K/MM3 (134-434) 10/24/17 15:55 MPV 9.1 fl (7.5-11.1) D 10/24/17 15:55 Neutrophils % 51.0 % (42.8-82.8) 10/24/17 15:55 Lymphocytes % 32.3 % (8-40) D 10/24/17 15:55 Monocytes % 16.6 % (3.8-10.2) H 10/24/17 15:55 Eosinophils % 0.0 % (0-4.5) 10/24/17 15:55 Basophils % 0.1 % (0-2.0) 10/24/17 15:55 ESR Cancelled 10/25/17 08:25 PT with INR 11.70 SEC (9.98-11.88) 10/24/17 16:02 INR 1.04 (0.82-1.09) 10/24/17 16:02 PTT (Actin FS) 29.9 SECONDS (26.9-34.4) 10/24/17 16:02 Puncture Site Right radial 10/24/17 18:00 ABG pH 7.45 (7.35-7.45) 10/24/17 18:00 ABG pCO2 at Pt Temp 34.7 mmHg (35-45) L 10/24/17 18:00 ABG pO2 at Pt Temp 118.0 mmHg (80-100) H D 10/24/17 18:00 ABG HCO3 23.4 meq/L (22-26) 10/24/17 18:00 ABG O2 Sat (Measured) 99.2 % (90-98.9) H 10/24/17 18:00 ABG O2 Content 15.0 % vol (15-22) 10/24/17 18:00 ABG Base Excess 0.2 meq/l (-2-2) 10/24/17 18:00 Giovanni Test Positive 10/24/17 18:00 Carboxyhemoglobin 2.0 gm% (0.5-2.0) 10/24/17 18:00 Methemoglobin 0.4 % (0.4-1.5) 10/24/17 18:00 Oxygen Flow Rate No 10/24/17 18:00 Sodium 142 mmol/L (136-145) 10/27/17 06:05 Potassium 3.8 mmol/L (3.5-5.1) 10/27/17 06:05 Chloride 110 mmol/L (98-107) H 10/27/17 06:05 Carbon Dioxide 24 mmol/L (21-32) 10/27/17 06:05 Anion Gap 8 (8-16) 10/27/17 06:05 BUN 10 mg/dL (7-18) 10/27/17 06:05 Creatinine 0.5 mg/dL (0.55-1.02) L D 10/27/17 06:05 Creat Clearance w eGFR > 60 (>60) 10/24/17 17:00 POC Glucometer 284 UNITS (80-120) 10/27/17 05:21 Random Glucose 307 mg/dL (74-106) H* D 10/27/17 06:05 Hemoglobin A1c % 11.7 % (4.8-6.0) H D 10/24/17 15:55 Calcium 7.5 mg/dL (8.5-10.1) L 10/27/17 06:05 Phosphorus 2.3 mg/dL (2.5-4.9) L 10/26/17 21:15 Magnesium 1.7 mg/dL (1.8-2.4) L 10/27/17 06:05 Total Bilirubin 0.8 mg/dL (0.2-1.0) D 10/24/17 17:00 AST 44 U/L (15-37) H D 10/24/17 17:00 ALT 64 U/L (12-78) 10/24/17 17:00 Alkaline Phosphatase 204 U/L (45-117) H 10/24/17 17:00 Ammonia 105.96 umol/L (11-32) H 10/24/17 15:55 C-Reactive Protein 0.7 MG/DL (0.00-0.3) H D 10/25/17 08:25 Total Protein 6.4 g/dl (6.4-8.2) 10/24/17 17:00 Albumin 2.0 g/dl (3.4-5.0) L 10/24/17 17:00 Urine Color Straw 10/24/17 15:42 Urine Appearance Clear 10/24/17 15:42 Urine pH 6.0 (5.0-8.0) 10/24/17 15:42 Ur Specific Keeling 1.028 (1.001-1.035) 10/24/17 15:42 Urine Protein Negative (NEGATIVE) 10/24/17 15:42 Urine Glucose (UA) 3+ (NEGATIVE) H 10/24/17 15:42 Urine Ketones Negative (NEGATIVE) 10/24/17 15:42 Urine Blood Negative (NEGATIVE) 10/24/17 15:42 Urine Nitrite Negative (NEGATIVE) 10/24/17 15:42 Urine Bilirubin Negative (NEGATIVE) 10/24/17 15:42 Urine Urobilinogen Negative mg/dL (0.2-1.0) 10/24/17 15:42 Ur Leukocyte Esterase Negative (NEGATIVE) 10/24/17 15:42 Urine HCG, Qual Negative 10/24/17 16:00 Alcohol, Quantitative < 5.0 mg/dl (0-5) 10/24/17 17:00 Acetone, Qual Negative (NEGATIVE) L 10/25/17 04:25 HIV 1&2 Antibody Screen Negative 10/27/17 06:05 HIV P24 Antigen Negative 10/27/17 06:05 Blood Type O NEGATIVE 10/24/17 17:00 Antibody Screen Negative 10/24/17 17:00 Active Medications Generic Name Dose Route Start Last Admin Trade Name Freq PRN Reason Stop Dose Admin Enoxaparin Sodium 40 mg 10/26/17 10:00 10/26/17 09:39 Lovenox - SQ 40 mg DAILY SIRIA Administration Cefazolin Sodium 1 gm in 10 mls @ 120 mls/hr 10/26/17 18:00 10/27/17 02:20 Ancef - IVPUSH 120 mls/hr Q8H-IV SIRIA Administration Sodium Chloride 1,000 mls @ 83 mls/hr 10/27/17 04:34 10/27/17 05:24 Normal Saline - IV 83 mls/hr ASDIR SIRIA Administration Insulin Aspart 1 vial 10/25/17 16:37 10/27/17 05:24 Novolog Vial Sliding Scale - SQ 6 unit Q3H SIRIA Administration Protocol Oxycodone HCl 5 mg 10/26/17 13:52 10/26/17 23:04 Roxicodone - PO 5 mg Q6H PRN Administration PAIN Microbiology 10/24/17 16:40 Blood - Peripheral Venous Blood Culture - Preliminary NO GROWTH OBTAINED AFTER 48 HOURS, INCUBATION TO CONTINUE FOR 3 DAYS. 10/24/17 16:40 Blood - Peripheral Venous Blood Culture - Preliminary NO GROWTH OBTAINED AFTER 48 HOURS, INCUBATION TO CONTINUE FOR 3 DAYS. 10/24/17 15:55 Urine - Urine Clean Catch Urine Culture - Final NO GROWTH OBTAINED Recent imaging: Abdomen/pelvis CT w/ contrast 10/24 - A tubular shaped mildly thick-walled right lower quadrant tubular structure is seen which may be on the basis of acute appendicitis. Alternatively this appearance represent a pathologic mildly thickened bowel loop. Additional evaluation utilizing oral contrast may be considered. There is moderate air and fluid-filled gastric distention. The remainder of the upper abdomen demonstrates no obvious interval change in comparison to an MRI study of 05/02/2017. Hepatomegaly with probable diffuse hepatic steatosis. TIPS in place which appears patent. Mild splenomegaly. Small amount of ascites. Status post cholecystectomy. XR r foot 10/25 (r/o osteo) - Imaging reveals degenerative changes, bunion formation by the first MTP joint and a deformed second toe with possible old trauma by the base of the proximal phalanx. A gross osteomyelitis or bone destruction is not seen. If symptoms persist, further imaging with a three- phase bone scan or MR may be of help. ASSESSMENT/PLAN: 47 yo woman w/ pmh of PSA, GERD, cirrhosis, pancreatitis and type 1 IDDM admitted for altered mental status with hyperammonemia, found to have suspected appendicitis on imaging, now s/p appendectomy POD2. Plan for d/c today per surgical team given no acute issues. #Appendicitis - thick walled appendix suspicion for appendicitis. POD2 s/p lap appy. - D/c on naproxen for pain control - f/u w/ surgical team in 2 weeks - d/c oxycodone - Afebrile on discharge, no infectious symptoms - Keflex QID 500mg PO for 7 days at home #Hyperglycemia - Last value 307 on discharge. Urged to continue home levemir, humalog SS Rx - Levemir 20u qHS per patient on discharge - HUmalog SS per home meds - f/u Dr. Hurst - f/u outpt PCP for management. Referred to [facility] in discharge packet. #AMS - Ammonia of 105 on presentation. Given lactulose in ED. - MS improved since admission. A&Ox3 #Cirrhosis- hyperammonia on admission - f/u with PCP for further management as outpt #Pseudohyponatremia - Na 133 on admission. 142 this AM. - Resolved #Diabetic foot ulcer - f/u as outpt with Dr. Hurst. #Diabetic neuropathy - lyrica 150 mg PO, neurontin 400 mg TID #Type 1 IDDM - BG poorly controlled on admission. Likely HONK. Pt likely poorly compliant, given ?homeless/transient status - Levemir 20u qHS per patient on discharge - HUmalog SS per home meds - f/u as outpt with PCP #HTN -continue home lisinopril 20 mg PO daily Dispo: Discharge home today per surgical team given clinical improvement. Plan discussed with attending, Dr. Laurence Banegas, PGY1 Visit type - Emergency Visit Emergency Visit: No - New Patient This patient is new to me today: Yes Date on this admission: 10/27/17 - Critical Care Critical Care patient: No
[2017-10-27 08:07] LABS: ANION GAP 8 (8-16); CALCIUM 7.5 mg/dL (8.5-10.1); CO2 24 mmol/L (21-32); CREATININE 0.5 mg/dL (0.55-1.02); MAGNESIUM 1.7 mg/dL (1.8-2.4)
[2017-10-27 08:25] LABS: HIV 1 & 2 AB NEGATIVE; HIV 1 AGp24 NEGATIVE
[2017-10-27] MEDS ORDERED: INSULIN (NOVOLOG) ASPART 100 UNITS/ML 10ML VIAL ONE (08:38)
[2017-10-27] MEDS ORDERED: INSULIN (NOVOLOG MIX 70/30) 100 UNITS/ML MDV SQ ONE (08:39)
--- NOTE | 2017-10-27 08:48 | PN ---
Progress Note, Physician Chief Complaint: abdominal pain History of Present Illness: 47 yo female PMH hypertension, diabetes, GERD, and liver failure, who presents to the emergency department with increased weakness and abdominal pain for worsening approximately 1 week. She is a poor historian on interview. s/p an uneventful laparoscopic appendectomy - Appendix appeared normal and no other major pathology was identified. She is stable post operatively POD#2 her only complaint is pain, tolerating a regular diet, having BM and flatus - Current Medication List Current Medications: Active Medications Enoxaparin Sodium (Lovenox -) 40 mg SQ DAILY [facility] Last Admin: 10/26/17 09:39 Dose: 40 mg Cefazolin Sodium (Ancef -) 1 gm in 10 mls @ 120 mls/hr IVPUSH Q8H-IV SIRIA Last Admin: 10/27/17 02:20 Dose: 120 mls/hr Sodium Chloride (Normal Saline -) 1,000 mls @ 83 mls/hr IV ASDIR SIRIA Last Admin: 10/27/17 05:24 Dose: 83 mls/hr Insulin Aspart (Novolog Vial Sliding Scale -) 1 vial SQ Q3H SIRIA PRN Reason: Protocol Last Admin: 10/27/17 05:24 Dose: 6 unit Oxycodone HCl (Roxicodone -) 5 mg PO Q6H PRN PRN Reason: PAIN Last Admin: 10/26/17 23:04 Dose: 5 mg - Objective Vital Signs: Vital Signs Temperature 98 F 10/27/17 05:31 Pulse Rate 77 10/27/17 05:31 Respiratory Rate 20 10/27/17 05:31 Blood Pressure 122/68 10/27/17 05:31 O2 Sat by Pulse Oximetry (%) 98 10/26/17 20:58 Vital Signs Period Temp Pulse Resp BP Sys/Resendez Pulse Ox Last 24 Hr 98 F-98.6 F 77-98 20-20 122-144/68-90 98-98 Constitutional: Yes: Well Nourished, No Distress, Calm Eyes: Yes: Conjunctiva Clear, EOM Intact HENT: Yes: Atraumatic, Normocephalic Neck: Yes: Supple, Trachea Midline Cardiovascular: Yes: Regular Rate and Rhythm, S1, S2 Respiratory: Yes: Regular, CTA Bilaterally Gastrointestinal: Yes: Normal Bowel Sounds, Soft, Tenderness (minimal periumbilical), Other (incsion X3, dressings removed). No: Tenderness, Epigastrium, Tenderness, Rebound Genitourinary: No: CVA Tenderness - Left, CVA Tenderness - Right Musculoskeletal: No: Muscle Pain, Muscle Weakness Extremities: No: Cool, Cyanosis Edema: No Peripheral Pulses WNL: No Wound/Incision: Yes: Clean/Dry, Well Approximated, Steri Strips, Open to air, Dressing Removed 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: Yes: Alert, Oriented Psychiatric: Yes: Alert, Oriented Labs: CBC, BMP 10/24/17 15:55 10/27/17 06:05 INR, PTT INR 1.04 (0.82-1.09) 10/24/17 16:02 Problem List - Problems (1) Appendicitis Assessment/Plan: 47 you female with MMP and ply substance abuse presents with acute appendicitis for 1 week with peritonitis, hyperglycemia just discharged from detox. s/p Lap appendectomy POD #2, tolerating diet, afebrile, ambulating, only complains of pain Can be discharged from the perspective of surgery adequate analgesia - avoid narcotic pain medication given abuse potential Consider GI evalution for IBD vs Meckel's diverticulum vs gasstroenteritis f/u in 2 weeks Code(s): K37 - UNSPECIFIED APPENDICITIS Qualifiers: Appendicitis type: acute appendicitis Acute appendicitis type: with localized peritonitis Qualified Code(s): K35.3 - Acute appendicitis with localized peritonitis (2) Diabetes mellitus, insulin dependent (IDDM), uncontrolled Code(s): E10.65 - TYPE 1 DIABETES MELLITUS WITH HYPERGLYCEMIA Qualifiers: (3) Alcohol dependence with uncomplicated withdrawal Code(s): F10.230 - ALCOHOL DEPENDENCE WITH WITHDRAWAL, UNCOMPLICATED (4) Chronic liver disease and cirrhosis Code(s): K74.60 - UNSPECIFIED CIRRHOSIS OF LIVER; K76.9 - LIVER DISEASE, UNSPECIFIED (5) Cocaine dependence Code(s): F14.20 - COCAINE DEPENDENCE, UNCOMPLICATED Qualifiers: Substance use status: uncomplicated Qualified Code(s): F14.20 - Cocaine dependence, uncomplicated (6) GERD (gastroesophageal reflux disease) Code(s): K21.9 - GASTRO-ESOPHAGEAL REFLUX DISEASE WITHOUT ESOPHAGITIS Qualifiers: Esophagitis presence: without esophagitis Qualified Code(s): K21.9 - Gastro -esophageal reflux disease without esophagitis (7) Hypertension Code(s): I10 - ESSENTIAL (PRIMARY) HYPERTENSION Qualifiers: Hypertension type: essential hypertension Qualified Code(s): I10 - Essential (primary) hypertension (8) Diabetic foot ulcer Code(s): E11.621 - TYPE 2 DIABETES MELLITUS WITH FOOT ULCER; L97.509 - NON- PRESSURE CHRONIC ULCER OTH PRT UNSP FOOT W UNSP SEVERITY Qualifiers: Diabetic foot ulcer location: toe Diabetes mellitus type: type 2 Laterality: right
[2017-10-27 08:50] LABS: GLUCOSE,RANDOM 307 mg/dL (74-106)
[2017-10-27] MEDS: ENOXAPARIN NA (PORCINE) 40 MG/0.4 ML DISP.SYRIN SQ SCH ×2 (11:00→11:32)
[2017-10-27] MEDS ORDERED: RANITIDINE HCL 150 MG TABLET (FP) PO ONE (11:00)
[2017-10-27] MEDS ORDERED: NAPH,MB-DB/K PH,MBDB POWDER PACKET PO ONE (11:08)
[2017-10-27] MEDS ORDERED: MAGNESIUM SULF 50% (8.12 MEQ/2 ML-1 GM VIAL) IVPB ONE (11:15)
--- NOTE | 2017-10-27 13:19 | PN ---
Progress Note, Physician History of Present Illness: C/O R 5th digit pain No reports of purulent drainage No fever/ chills Afebrile leukopenic Cultures negative HIV negative - Current Medication List Current Medications: Active Medications Enoxaparin Sodium (Lovenox -) 40 mg SQ DAILY [facility] [place] Last Admin: 10/27/17 11:32 Dose: Not Given Cefazolin Sodium (Ancef -) 1 gm in 10 mls @ 120 mls/hr IVPUSH Q8H-IV SIRIA Last Admin: 10/27/17 11:00 Dose: 120 mls/hr Sodium Chloride (Normal Saline -) 1,000 mls @ 83 mls/hr IV ASDIR SIRIA Last Admin: 10/27/17 05:24 Dose: 83 mls/hr Insulin Aspart (Novolog Vial Sliding Scale -) 1 vial SQ Q3H SIRIA PRN Reason: Protocol Last Admin: 10/27/17 11:47 Dose: 8 unit Oxycodone HCl (Roxicodone -) 5 mg PO Q6H PRN PRN Reason: PAIN Last Admin: 10/26/17 23:04 Dose: 5 mg - Objective Vital Signs: Vital Signs Temperature 98.0 F 10/27/17 09:01 Pulse Rate 85 10/27/17 09:01 Respiratory Rate 20 10/27/17 09:01 Blood Pressure 146/89 10/27/17 09:01 O2 Sat by Pulse Oximetry (%) 98 10/26/17 20:58 Constitutional: Yes: No Distress Eyes: Yes: Conjunctiva Clear Cardiovascular: Yes: Regular Rate and Rhythm, S1, S2 Respiratory: Yes: CTA Bilaterally Gastrointestinal: Yes: Normal Bowel Sounds, Soft. No: Tenderness Extremities: Yes: Other (+ R 5th digit paronychial infection- decreased erythema ) Labs: CBC, BMP 10/24/17 15:55 10/27/17 06:05 INR, PTT INR 1.04 (0.82-1.09) 10/24/17 16:02 Assessment/Plan R 5th digit paronychial infection S/P appendectomy may substitute keflex 500mg po q6h x 7-10 d Outpatient follow up
[2017-10-27 14:45] VITALS: BP 164/86; PULSE 103; TEMP 97.9
--- NOTE | 2017-10-27 18:41 | PN ---
Teaching Attending Note Name of Resident: Sebastián Banegas ATTENDING PHYSICIAN STATEMENT I saw and evaluated the patient. I reviewed the resident's note and discussed the case with the resident. I agree with the resident's findings and plan as documented. SUBJECTIVE: Patient feels better, mother is in the room with her. OBJECTIVE: Period Temp Pulse Resp BP Sys/Resendez Pulse Ox Last 24 Hr 98 F-98.6 F 77-98 20-20 122-144/68-90 98-98 CBCD WBC 3.5 K/mm3 (4.0-10.0) L 10/24/17 15:55 RBC 4.01 M/mm3 (3.60-5.2) 10/24/17 15:55 Hgb 12.1 GM/dL (10.7-15.3) 10/24/17 15:55 Hct 37.3 % (32.4-45.2) 10/24/17 15:55 MCV 93.0 fl (80-96) 10/24/17 15:55 MCHC 32.4 g/dl (32.0-36.0) 10/24/17 15:55 RDW 17.5 % (11.6-15.6) H 10/24/17 15:55 Plt Count 169 K/MM3 (134-434) 10/24/17 15:55 MPV 9.1 fl (7.5-11.1) D 10/24/17 15:55 CMP Sodium 142 mmol/L (136-145) 10/27/17 06:05 Potassium 3.8 mmol/L (3.5-5.1) 10/27/17 06:05 Chloride 110 mmol/L (98-107) H 10/27/17 06:05 Carbon Dioxide 24 mmol/L (21-32) 10/27/17 06:05 Anion Gap 8 (8-16) 10/27/17 06:05 BUN 10 mg/dL (7-18) 10/27/17 06:05 Creatinine 0.5 mg/dL (0.55-1.02) L D 10/27/17 06:05 Creat Clearance w eGFR > 60 (>60) 10/24/17 17:00 Random Glucose 307 mg/dL (74-106) H* D 10/27/17 06:05 Calcium 7.5 mg/dL (8.5-10.1) L 10/27/17 06:05 Total Bilirubin 0.8 mg/dL (0.2-1.0) D 10/24/17 17:00 AST 44 U/L (15-37) H D 10/24/17 17:00 ALT 64 U/L (12-78) 10/24/17 17:00 Alkaline Phosphatase 204 U/L (45-117) H 10/24/17 17:00 Total Protein 6.4 g/dl (6.4-8.2) 10/24/17 17:00 Albumin 2.0 g/dl (3.4-5.0) L 10/24/17 17:00 Home Medications Medication Instructions Recorded Lisinopril [Prinivil] 20 mg PO DAILY #30 tablet 11/27/16 Ranitidine [Zantac -] 150 mg PO BID #60 tablet 11/27/16 Gabapentin [Neurontin -] 400 mg PO TID #90 cap 04/09/17 Pregabalin [Lyrica] 150 mg PO HS 04/30/17 Insulin Glargine,Hum.rec.anlog 40 units SQ HS 10/20/17 [Lantus Solostar PEN -] Insulin Lispro [Humalog] 0 unit SQ TIDCM 10/20/17 Mirtazapine [Remeron -] 30 mg PO HS #30 tablet 10/20/17 Trazodone HCl [Desyrel -] 150 mg PO HS #30 tablet 10/20/17 Cephalexin [Keflex] 500 mg PO Q6H #40 capsule 10/27/17 Naproxen Sodium 275 mg PO BID #6 tablet 10/27/17 PE: CHEST: CTA BL HEART: S1S2 positive Abdomen: soft, NT,NR, clean laporoscopic site EXT: pulses are positive rest of PE per resident's note ASSESSMENT AND PLAN: 47 yo F h/o cocaine and alcohol abuse, HTN, GERD, liver cirrhosis, pancreatitis and IDDM type 1 admitted to med-surg inpatient service for altered mental status , and was found to have elevated ammonia level. #POD 2 ; laparoscopic appendectomy with negative findings. discussed with surgery patient is ok to be discharged home today. # Type I dm ;Hyperglycemia; noncompliant , continue home regimen. #Right pinky improving with mild erythema now. will discharge her po keflex 500mg po qid , discussed with ID agrees with the plan. #pseudohyponatremia improved post IVF # Acute change of mental status due to elevated ammonia with level of 105 in ED. s/p Lactulose , improved . Back to her normal self. #Liver Cirrhosis presented with acute change of MS ,was found to have ammonia level of 105. given lactulose improved back to her normal self. with hx of Liver cirrhosis with chronic portal vein thrombosis, s/p TIPS procedure 2009 #Right planter surface medially with nonfluctuating hyperpigmented ulcer that is tender to palpation, as per patient to completed a 12-day course of po abx for osteomylelitis of the right foot, Xray of the foot, esr, crp. Dr. Hurst consulted from podiatry for further evaluation Diabetic right nonhealing foot ulcer; MRI (05/2017) equivocal for osteo, Podiatry consult to follow up # HTN controlled continue lisinporil #diabetic neuropathy lyrica, neurontin DVT Prophylaxis lovenox GI Px: home zantac discharge patient home on keflex 500mg po qid x 10 days.
--- NOTE | 2017-10-27 22:15 | DS ---
Physical Exam: SUBJECTIVE: Patient seen and examined by me this AM - Endorses persistent nausea, chills. No major overnight events. Continues to complain of surgical site abdominal pain. - Denies any URIBE/dizziness, SOB, cough, CP, peripheral edema, diarrhea, dysuria, new rashes. Able to ambulate. Still with general malaise, poor sleep, PO intake. - Pt states she takes 40u lantus qHs at home. - States she will follow-up with surgical team regarding further management post -op. OBJECTIVE: Vital Signs Period Temp Pulse Resp BP Sys/Resendez Pulse Ox Last 24 Hr 97.9 F-98.3 F 77-103 20-20 122-164/68-90 97 PHYSICAL EXAM GENERAL: The patient is awake, alert, and fully oriented, in mild distress in a hospital gown. HEAD: NCAT EYES: PERRL, extraocular movements intact, sclera anicteric, conjunctiva clear. No ptosis. ENT: Ears normal, nares patent, oropharynx clear without exudates, moist mucous membranes. NECK: Trachea midline, supple. No JVD. Possible thyromegaly. LUNGS: Breath sounds equal, clear to auscultation bilaterally, no wheezes, no crackles, no accessory muscle use. HEART: Regular rate and rhythm, S1, S2 without murmur, rub or gallop. ABDOMEN: Umbilical, LLQ laparotomy incision sites. C/d/i. No erythema. Remainder of abdomen soft, nondistended, normoactive bowel sounds, no guarding, no rebound. Upper EXTREMITIES: 2+ pulses, warm, well-perfused, no edema. Right pinky w/ trace swelling, erythema Lower extremities: 2+ pulses. Painful to palpation on soles BL. R non-healed ulcer between 2nd and 3rd digits on bottom of foot. R hyperemic patch on anterior guzman. No LE edema NEUROLOGICAL: Cranial nerves II through XII grossly intact. Normal speech, normal gait. PSYCH: Constricted affect. LABS Laboratory Results - last 24 hr 10/24/17 10/25/17 10/25/17 15:12 03:37 05:53 Sodium Potassium Chloride Carbon Dioxide Anion Gap BUN Creatinine POC Glucometer > 400 > [phone] Random Glucose Calcium Phosphorus Magnesium HIV 1&2 Antibody Screen HIV P24 Antigen 10/25/17 10/26/17 10/26/17 09:28 16:25 19:56 Sodium Potassium Chloride Carbon Dioxide Anion Gap BUN Creatinine POC Glucometer 256 451 535 Random Glucose Calcium Phosphorus Magnesium HIV 1&2 Antibody Screen HIV P24 Antigen 10/26/17 10/26/17 10/26/17 21:15 21:16 23:47 Sodium 140 Potassium 3.7 Chloride 109 H Carbon Dioxide 23 Anion Gap 8 BUN 10 D Creatinine 0.7 POC Glucometer 478 396 Random Glucose 471 H* Calcium 6.9 L* Phosphorus 2.3 L Magnesium 1.6 L HIV 1&2 Antibody Screen HIV P24 Antigen 10/27/17 10/27/17 10/27/17 02:25 05:21 06:05 Sodium Potassium Chloride Carbon Dioxide Anion Gap BUN Creatinine POC Glucometer 287 284 Random Glucose Calcium Phosphorus Magnesium HIV 1&2 Antibody Screen Negative HIV P24 Antigen Negative 10/27/17 10/27/17 10/27/17 06:05 08:42 11:35 Sodium 142 Potassium 3.8 Chloride 110 H Carbon Dioxide 24 Anion Gap 8 BUN 10 Creatinine 0.5 L D POC Glucometer 303 326 Random Glucose 307 H* D Calcium 7.5 L Phosphorus Magnesium 1.7 L HIV 1&2 Antibody Screen HIV P24 Antigen 10/27/17 13:45 Sodium Potassium Chloride Carbon Dioxide Anion Gap BUN Creatinine POC Glucometer 286 Random Glucose Calcium Phosphorus Magnesium HIV 1&2 Antibody Screen HIV P24 Antigen HOSPITAL COURSE: Date of Admission:10/25/17 Date of Discharge: 10/27/17 47 yo woman w/ pmh of PSA, GERD, cirrhosis, pancreatitis and type 1 IDDM admitted for altered mental status after discharge from rehab facility one day prior, with one week of persistent abdominal pain, nausea, fever/chills and fatigue. On admission, pt received abdominal CT scan, + for thickened appendix suspicious for acute appendicitis, despite no elevated WBC count or fever. Pt was also severely hyperglycemic to ~700 (A1C 11.7) with no a-gap or acidosis, as well as elevated ammonia (105), believed to be the primary cause of altered mental status. Pt was taken emergently for surgery, with laparascopic appendectomy with unremarkable intra-operative course. Operative findings were notable for normal-appearing appendix and multiple white serosal implants on small bowel in RLQ. Pt was recovered with pain control and started on ancef for post-op abx coverage. In addition, pt glucose was poorly controlled on novolog SS, however pt is a chronic substance abuse, believed to be homeless and does not have reliable f/u with providers to corroborate anti-hyperglycemic regimen. Pt found to have diabetic foot ulcer in anterior midfoot on plantar surface, which is chronic, with foot xray negative for osteomyelitis (pt has hx). Pt was cleared for discharge by the surgical team today with outpt follow-up in two weeks and was approved for 7 day course of abx tx with Keflex per ID. Multiple referrals were made for outpt follow-up with PCP (Dianna), OB-vault maker, podiatry and general surgery. Imaging: Abdomen/pelvis CT w/ contrast 10/24 - A tubular shaped mildly thick-walled right lower quadrant tubular structure is seen which may be on the basis of acute appendicitis. Alternatively this appearance represent a pathologic mildly thickened bowel loop. Additional evaluation utilizing oral contrast may be considered. There is moderate air and fluid-filled gastric distention. The remainder of the upper abdomen demonstrates no obvious interval change in comparison to an MRI study of 05/02/2017. Hepatomegaly with probable diffuse hepatic steatosis. TIPS in place which appears patent. Mild splenomegaly. Small amount of ascites. Status post cholecystectomy. XR r foot 10/25 (r/o osteo) - Imaging reveals degenerative changes, bunion formation by the first MTP joint and a deformed second toe with possible old trauma by the base of the proximal phalanx. A gross osteomyelitis or bone destruction is not seen. If symptoms persist, further imaging with a three- phase bone scan or MR may be of help. Micro: Microbiology 10/24/17 16:40 Blood - Peripheral Venous Blood Culture - Preliminary NO GROWTH OBTAINED AFTER 72 HOURS, INCUBATION TO CONTINUE FOR 2 DAYS. 10/24/17 16:40 Blood - Peripheral Venous Blood Culture - Preliminary NO GROWTH OBTAINED AFTER 72 HOURS, INCUBATION TO CONTINUE FOR 2 DAYS. 10/24/17 15:55 Urine - Urine Clean Catch Urine Culture - Final NO GROWTH OBTAINED Consults: Podiatry - Dr. Michael Hurst Surgery - Dr. Diomedes Manriquez ID - Dr. Elgin Frank Patient deemed stable and cleared for discharge by the primary surgical team with post-op follow-up in two weeks. Minutes to complete discharge: 25 Discharge Summary Reason For Visit: INSULIN DEPENDENT DIABETES MELLITUS APPENDICITIS Condition: Fair - Instructions Diet, Activity, Other Instructions: Postoperative instructions: You had a laparoscopic appendectomy on 10/25/[address] Diomedes Manriquez of [facility]. Activity: Resume your usual activities gradually, but no heavy exertion or lifting more than 10-15 pounds for 1 month. Remove dressings 48 hours after surgery; sticky tapes underneath will fall off by themselves. You may shower daily starting then, just pat the incision areas dry. Eat lightly at first, but advance to your usual diet as tolerated. Pain: For pain, you may use and alternate Tylenol (acetaminophen) and/or ibuprofen every 6 hours each as needed; this means that you can take one OR the other at 3-hour intervals. If you are prescribed a Tylenol/narcotic combination for severe pain, use it instead of plain Tylenol as needed and switch back when your pain starts decreasing. Do not take more than 4000mg of acetaminophen in a day. Take medications as prescribed or indicated on the labeling. Follow-up: Call Dr. Manriquez' office at [phone] to make your postop appointment (Friday ~2 weeks after surgery). Clinic is held in the Diagnostic Center on the first floor of [facility]. Please follow-up with our outpatient management psychologist, Dr. Raghav Jacob, in two weeks for further work-up/management of your possible inflammatory bowel disease/gastritis. Please call his office number provided in this packet to schedule an appointment. Please follow-up with an outpatient kicking machine operator for further care of your chronic R foot ulcer. You were seen by Dr. Hurst during your admission. Please call the office number provided for an outpatient visit in 1-2 weeks. Call the office if you have: * increasing pain not responsive to pain medication * fever of 101F or higher * vomiting * unusual or increasing bleeding or drainage from wounds * increasing redness or swelling at wound sites * inability to urinate Also, see your primary medical doctor within 1-2 weeks. Please resume your home medications as prescribed, continue testing your fingers sticks. You have an appointment with Dr. Robles/Sarita at [facility] [phone] Nov 03 at 9:45 AM Take naprosyn and zantac as needed with food for 3 days for any abdominal pain. Referrals: Michael Hurst MD [Staff Physician] - 2 Weeks Beka Jacob DO [Staff Physician] - 2 Weeks Diomedes Manriquez MD [Staff Physician] - 2 Weeks Dinora Silverman MD [Staff Physician] - 1 Week Disposition: HOME - Home Medications Comprehensive Discharge Medication List: Ambulatory Orders Lisinopril [Prinivil] 20 mg PO DAILY #30 tablet 11/27/16 Ranitidine [Zantac -] 150 mg PO BID #60 tablet 11/27/16 Gabapentin [Neurontin -] 400 mg PO TID #90 cap 04/09/17 Pregabalin [Lyrica] 150 mg PO HS 04/30/17 Insulin Glargine,Hum.rec.anlog [Lantus Solostar PEN -] 40 units SQ HS 10/20/17 Insulin Lispro [Humalog] 0 unit SQ TIDCM 10/20/17 Mirtazapine [Remeron -] 30 mg PO HS #30 tablet 10/20/17 Trazodone HCl [Desyrel -] 150 mg PO HS #30 tablet 10/20/17 Cephalexin [Keflex] 500 mg PO Q6H #40 capsule 10/27/17 Naproxen Sodium 275 mg PO BID #6 tablet 10/27/17 This patient is new to me today: Yes Date on this admission: 10/27/17 Emergency Visit: Yes ED Registration Date: 10/25/17 Care time: The patient presented to the Emergency Department on the above date and was hospitalized for further evaluation of their emergent condition. Critical Care patient: No - Discharge Referral Referred to [facility] Med P.C.: No
--- NOTE | 2017-10-27 23:06 | EKG ---
Test Reason : Blood Pressure : / mmHG Vent. Rate : 079 BPM Atrial Rate : 079 BPM P-R Int : 140 ms QRS Dur : 086 ms QT Int : 414 ms P-R-T Axes : 045 005 014 degrees QTc Int : 474 ms NORMAL SINUS RHYTHM MINIMAL VOLTAGE CRITERIA FOR LVH, MAY BE NORMAL VARIANT BORDERLINE ECG WHEN COMPARED WITH ECG OF 20-OCT-2017 12:52, SINUS RHYTHM HAS REPLACED ECTOPIC ATRIAL RHYTHM T WAVE VARIATION Confirmed by VEE BLAIR, KERI ([id number]) on 10/27/2017 11:06:07 PM Referred By: Confirmed By:KERI BAXTER MD
--- NOTE | 2017-10-29 16:12 | PATH ---
Surgical Pathology Report Patient Name: YANICK ANGELO Med. Rec. #: [id number] /Age/Gender: 1970 (Age: 47) / F Account: [id number] Location: [facility] MED/SURG Taken: 10/25/2017 Received: 10/27/2017 Reported: 10/29/2017 Physicians: Diomedes Manriquez M.D. Specimen(s) Received APPENDIX Clinical History Appendicitis Final Diagnosis APPENDIX, LAPAROSCOPIC APPENDECTOMY: VERMIFORM APPENDIX WITHOUT SIGNIFICANT PATHOLOGIC FINDINGS. Comment: No serosal lesions are identified. Electronically Signed Shakila Gomez M.D. Gross Description Received in formalin, labeled "appendix," is a 4.5 cm. in length vermiform appendix with a stapled margin of resection and moderate attached fat. The serosa is flannery-gallardo with a staple line extending the length of the appendix. Sectioning reveals a focally hemorrhagic lumen. The wall of the appendix averages 0.1 cm. in thickness. Entire specimen is submitted in 3 cassettes. 10/27/2017 saudi10/27/2017
== END 2017-10-27 15:00 | disposition home or self-care (01) | DRG 341 ==
LOC: JER 14:48 → JERBED 10-25 03:27 → J7W 10-25 06:01
PROVIDERS: ADMIT Internal Medicine; ATTEND Internal Medicine
PROC: 0DTJ4ZZ Resection of Appendix, Percutaneous Endoscopic Approach (ICD-10-PCS; principal; 2017-10-25 09:38)
DX: K36 Other appendicitis (principal); K72.00 Acute and subacute hepatic failure without coma; F14.20 Cocaine dependence, uncomplicated; L97.518 Non-pressure chronic ulcer of other part of right foot with other specified severity; E87.1 Hypo-osmolality and hyponatremia; F10.230 Alcohol dependence with withdrawal, uncomplicated; E72.20 Disorder of urea cycle metabolism, unspecified; R18.8 Other ascites; I10 Essential (primary) hypertension; K21.9 Gastro-esophageal reflux disease without esophagitis; E11.42 Type 2 diabetes mellitus with diabetic polyneuropathy; K74.69 Other cirrhosis of liver; R41.82 Altered mental status, unspecified; D72.818 Other decreased white blood cell count; E10.621 Type 1 diabetes mellitus with foot ulcer; E10.65 Type 1 diabetes mellitus with hyperglycemia; Z91.19 Patient's noncompliance with other medical treatment and regimen
CPT/HCPCS: 36415; 36600; 71010-TC; 73630-TC-RT; 74177-TC; 80048; 80053; 80307; 81003; 82009; 82140; 82375; 82803; 82947; 83036; 83050; 83735; 84100; 84703; 85025; 85610; 85730; 86140; 86850; 86900; 86901; 87040; 87086; 87389; 88304-TC; 93005; 93010; 94010; 94760; 99284-25

== ENCOUNTER 2017-12-22 08:48 | Inpatient (IN) | payer MEDICARE, OTHER ==
[2017-12-22 10:29] VITALS: BMI 25.0
[2017-12-22] MEDS ORDERED: MAGNESIUM CITRATE 300 ML BOTTLE PO PRN (11:54)
[2017-12-22] MEDS ORDERED: ACETAMINOPHEN 325 MG TABLET (FP) PO PRN (11:54)
[2017-12-22] MEDS ORDERED: MAG HYDROX/AL HYDROX/SIMETH 30 ML UNIT-DOSE CUP PO PRN (11:54)
[2017-12-22] MEDS ORDERED: MAGNESIUM HYDROX 2400MG/30ML ORAL SUSPENSION 30 ML CUP PO PRN (11:54)
[2017-12-22] MEDS ORDERED: MENTHOL/PHENOL 1 EACH UD MM PRN (11:54)
[2017-12-22] MEDS ORDERED: P-EPHED 60MG/TRIPROLIDI 2.5MG TABLET PO PRN (11:54)
--- NOTE | 2017-12-22 11:54 | HP ---
CIWA Score - CIWA Score Nausea/Vomitin Muscle Tremors: 3 Anxiety: 2 Agitation: 1-Slight > Activity Paroxysmal Sweats: 3 Orientation: 0-Oriented Tacttile Disturbances: 2-Mild Itch/Numbness/Burn Auditory Disturbances: 0-None Visual Disturbances: 0-None Headache: 2-Mild CIWA-Ar Total Score: 15 Admission ROS [facility] - HPI Chief Complaint: I need to get help Allergies/Adverse Reactions: Allergies Allergy/AdvReac Type Severity Reaction Status Date / Time fish derived Allergy Severe Swelling Verified 12/22/17 10:53 shellfish derived Allergy Severe Swelling Verified 12/22/17 10:53 No Known Drug Allergies Allergy Verified 12/22/17 10:53 SEAFOOD Allergy Severe Swelling Uncoded 12/22/17 10:53 - Ebola screening Have you traveled outside of the country in the last 21 days: No Have you had contact with anyone from an Ebola affected area: No Have you been sick,other than usual withdrawal symptoms: No - Review of Systems Constitutional: Chills EENT: reports: No Symptoms Reported Respiratory: reports: Cough Cardiac: reports: No Symptoms Reported GI: reports: No Symptoms Reported, Nausea : reports: No Symptoms Reported Musculoskeletal: reports: Joint Pain Integumentary: reports: No Symptoms Reported Neuro: reports: Headache Endocrine: reports: No Symptoms Reported Hematology: reports: No Symptoms Reported Psychiatric: reports: Anxious, other Patient History - Patient Medical History Hx Anemia: No Hx Asthma: No Hx Chronic Obstructive Pulmonary Disease (COPD): No Hx Cancer: No Hx Cardiac Disorders: No Hx Congestive Heart Failure: No Hx Hypertension: Yes (non compliant with meds.) Hx Hypercholesterolemia: No Hx Pacemaker: No HX Cerebrovascular Accident: No Hx Seizures: No Hx Dementia: No Hx Diabetes: Yes Hx Gastrointestinal Disorders: No Hx Liver Disease: No Hx Genitourinary Disorders: No Hx Sexually Transmitted Disorders: No Hx Renal Disease (ESRD): No Hx Thyroid Disease: No Hx Human Immunodeficiency Virus (HIV): No (NEGATIVE HX) Hx Hepatitis C: No (NEGATIVE ) Hx Depression: Yes Hx Suicide Attempt: No Hx Bipolar Disorder: No Hx Schizophrenia: No - Patient Surgical History Past Surgical History: Yes Hx Neurologic Surgery: No Hx Cataract Extraction: No Hx Cardiac Surgery: No Hx Lung Surgery: No Hx Breast Surgery: No Hx Breast Biopsy: No Hx Abdominal Surgery: Yes (TUBAL LIGATION IN 2005) Hx Appendectomy: Yes (10/25/17) Hx Cholecystectomy: No Hx Genitourinary Surgery: No Hx Section: No Hx Orthopedic Surgery: Yes (neck, 11/30/2015 (fall);SX COCYX DUE TO OSTEOMYLITIS - 2010) Other Surgical History: Pt had sx for intestinal blockage in 11/16 in [facility] 11/16 Anesthesia Reaction: No - PPD History Previous Implant?: Yes Documented Results: Negative w/proof Implanted On Prior [facility] Admission?: Yes Date: 10/22/17 Results: 0 mm - Reproductive History Last Menstrual Period: 09/30/17 Patient : No - Smoking Cessation Smoking history: Never smoked Have you smoked in the past 12 months: No Aproximately how many cigarettes per day: 0 Cigars Per Day: 0 Hx Chewing Tobacco Use: No - Substances Abused Alcohol Route: Oral Frequency: Daily Amount used: 1 pint vodka Age of first use: 42 Date of Last Use: 12/21/17 Crack Route: Smoking Frequency: Daily Amount used: $20 Age of first use: 45 Date of Last Use: 12/21/17 Family Disease History - Family Disease History Family Disease History: Diabetes: Grandparent (alcohol), Father (alive: 68: HTN) , Mother (alive: 67), Other: Grandparent, Father, Mother Admission Physical Exam [facility] - Vital Signs Vital Signs: Vital Signs - 24 hr 12/22/17 10:10 Temperature 97.4 F L Pulse Rate 101 H Respiratory 20 Rate Blood Pressure 151/89 - Physical General Appearance: Yes: Disheveled HEENTM: Yes: EOMI, Hearing grossly Normal Respiratory: Yes: Chest Non-Tender, Lungs Clear Neck: Yes: No masses,lesions,Nodules Cardiology: Yes: Regular Rhythm, Regular Rate, S1, S2 Abdominal: Yes: Normal Bowel Sounds, Non Tender Back: Yes: Normal Inspection Musculoskeletal: Yes: full range of Motion, Gait Steady Extremities: Yes: Within Normal Limits, Normal Capillary Refill, Non-Tender 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
--- NOTE | 2017-12-22 12:03 | HP ---
CIWA Score - CIWA Score Nausea/Vomitin Muscle Tremors: 3 Anxiety: 2 Agitation: 1-Slight > Activity Paroxysmal Sweats: 3 Orientation: 0-Oriented Tacttile Disturbances: 2-Mild Itch/Numbness/Burn Auditory Disturbances: 0-None Visual Disturbances: 0-None Headache: 2-Mild CIWA-Ar Total Score: 15 Admission ROS [facility] Allergies/Adverse Reactions: Allergies Allergy/AdvReac Type Severity Reaction Status Date / Time fish derived Allergy Severe Swelling Verified 12/22/17 10:53 shellfish derived Allergy Severe Swelling Verified 12/22/17 10:53 No Known Drug Allergies Allergy Verified 12/22/17 10:53 SEAFOOD Allergy Severe Swelling Uncoded 12/22/17 10:53 - Ebola screening Have you traveled outside of the country in the last 21 days: No Have you had contact with anyone from an Ebola affected area: No Have you been sick,other than usual withdrawal symptoms: No Patient History - Patient Medical History Hx Anemia: No Hx Asthma: No Hx Chronic Obstructive Pulmonary Disease (COPD): No Hx Cancer: No Hx Cardiac Disorders: No Hx Congestive Heart Failure: No Hx Hypertension: Yes (non compliant with meds.) Hx Hypercholesterolemia: No Hx Pacemaker: No HX Cerebrovascular Accident: No Hx Seizures: No Hx Dementia: No Hx Diabetes: Yes Hx Gastrointestinal Disorders: No Hx Liver Disease: No Hx Genitourinary Disorders: No Hx Sexually Transmitted Disorders: No Hx Renal Disease (ESRD): No Hx Thyroid Disease: No Hx Human Immunodeficiency Virus (HIV): No (NEGATIVE HX) Hx Hepatitis C: No (NEGATIVE ) Hx Depression: Yes Hx Suicide Attempt: No Hx Bipolar Disorder: No Hx Schizophrenia: No - Patient Surgical History Past Surgical History: Yes Hx Neurologic Surgery: No Hx Cataract Extraction: No Hx Cardiac Surgery: No Hx Lung Surgery: No Hx Breast Surgery: No Hx Breast Biopsy: No Hx Abdominal Surgery: Yes (TUBAL LIGATION IN 2005) Hx Appendectomy: Yes (10/25/17) Hx Cholecystectomy: No Hx Genitourinary Surgery: No Hx Section: No Hx Orthopedic Surgery: Yes (neck, 11/30/2015 (fall);SX COCYX DUE TO OSTEOMYLITIS - 2010) Other Surgical History: Pt had sx for intestinal blockage in 11/16 in [facility] 11/16 Anesthesia Reaction: No - PPD History Previous Implant?: Yes Documented Results: Negative w/proof Implanted On Prior [facility] Admission?: Yes Date: 10/22/17 Results: 0 mm - Reproductive History Last Menstrual Period: 09/30/17 Patient : No - Smoking Cessation Smoking history: Never smoked Have you smoked in the past 12 months: No Aproximately how many cigarettes per day: 0 Cigars Per Day: 0 Hx Chewing Tobacco Use: No - Substances Abused Alcohol Route: Oral Frequency: Daily Amount used: 1 pint vodka Age of first use: 42 Date of Last Use: 12/21/17 Crack Route: Smoking Frequency: Daily Amount used: $20 Age of first use: 45 Date of Last Use: 12/21/17 Family Disease History - Family Disease History Family Disease History: Diabetes: Grandparent (alcohol), Father (alive: 68: HTN) , Mother (alive: 67), Other: Grandparent, Father, Mother Admission Physical Exam [facility] - Vital Signs Vital Signs: Vital Signs - 24 hr 12/22/17 10:10 Temperature 97.4 F L Pulse Rate 101 H Respiratory 20 Rate Blood Pressure 151/89 - Diagnostic (1) Alcohol dependence with uncomplicated withdrawal Current Visit: No Status: Chronic (2) Chronic liver disease and cirrhosis Current Visit: No Status: Chronic (3) Cocaine dependence Current Visit: No Status: Chronic Qualifiers: Substance use status: uncomplicated Qualified Code(s): F14.20 - Cocaine dependence, uncomplicated (4) Depressive disorder Current Visit: No Status: Chronic (5) GERD (gastroesophageal reflux disease) Current Visit: No Status: Chronic Qualifiers: Esophagitis presence: without esophagitis Qualified Code(s): K21.9 - Gastro -esophageal reflux disease without esophagitis (6) Insulin dependent diabetes mellitus Current Visit: Yes Status: Acute (7) Polyneuropathy Current Visit: No Status: Chronic [facility] Breath Alcohol Content Breath Alcohol Content: 0 Urine Pregancy Test - Result Urine Test Results: Negative- NO Line Present Urine Drug Screen - Results Drug Screen Negative: No Urine Drug Screen Results: DEEPAK-Cocaine
[2017-12-22] MEDS: chlordiazePOXIDE HCL 25 MG CAPSULE PO PRN (13:52)
[2017-12-22] MEDS: guaiFENesin/D-METHORPHAN HB 10 ML UNIT-DOSE CUPS PO PRN (13:53)
[2017-12-22] MEDS: INSULIN DETEMIR 100 UNITS/ML MDV SQ SCH ×2 (13:54→22:03)
[2017-12-22] MEDS ORDERED: Insulin (LOG) Aspart 100 UNITS/ML VIAL SQ ONE (14:02)
[2017-12-22] MEDS ORDERED: INSULIN (NOVOLOG) ASPART 100 UNITS/ML 10ML VIAL ONE ×2 (14:03→17:47)
--- NOTE | 2017-12-22 15:10 | CONSULT ---
[facility] Psychiatric Consult - Data Date of interview: 12/22/17 Admission source: [facility] Identifying data: This is 47 years old female with no psychiatri hospiotalization history intoxicated with: Cocaine, Alcohol Substance Abuse History: - Smoking Cessation. Smoking history: Never smoked. Have you smoked in the past 12 months: No. Aproximately how many cigarettes per day: 0. Cigars Per Day: 0. Hx Chewing Tobacco Use: No. - Substances Abused. Alcohol. Route: Oral. Frequency: Daily. Amount used: 1 pint vodka. Age of first use: 42. Date of Last Use: 12/21/17. Crack. Route: Smoking. Frequency: Daily. Amount used: $20. Age of first use: 45. Date of Last Use: 12/21/17. Family Disease History. - Family Disease History. Family Disease History: Diabetes: Grandparent (alcohol), Father (alive: 68: HTN), Mother (alive: 67), Other: Grandparent, Father, Mother. Admission Physical Exam [facility]. - Vital Signs Medical History: dm-2, mGERD, Liver Cirrhosis history Psychiatric History: Reports history 0of mdepression and anxiety, reports taking prior to admission: Trazodone 159m,g p[o qhs. Remeron 30mg po qhs Physical/Sexual Abuse/Trauma History: Denies Additional Comment: Trazodone 159m,g p[o qhs. Remeron 30mg po qhs Mental Status Exam - Mental Status Exam Alert and Oriented to: Person Cognitive Function: Fair Patient Appearance: Unkempt Mood: Sad Affect: Flat Patient Behavior: Sedated Speech Pattern: Delayed, Slurred Voice Loudness: Moderately Soft/Quiet Thought Process: Circumstantial Thought Disorder: Being Controlled Hallucinations: Denies Suicidal Ideation: Denies Homicidal Ideation: Denies Insight/Judgement: Fair Sleep: Difficulty falling asleep Appetite: Weight gain Muscle strength/Tone: Mild Hypotonicity Gait/Station: Shuffling Additional Comments: Trazodone 159m,g p[o qhs. Remeron 30mg po qhs Psychiatric Findings - Problem List ([place] 1, 2,3) (1) Drug-induced mood disorder Current Visit: Yes Status: Acute (2) Alcohol dependence with uncomplicated withdrawal Current Visit: No Status: Chronic (3) Alcohol-induced anxiety disorder Current Visit: No Status: Chronic (4) Alcohol-induced mood disorder Current Visit: No Status: Chronic (5) Alcohol-induced sleep disorder Current Visit: No Status: Chronic (6) Cocaine dependence Current Visit: No Status: Chronic Qualifiers: Substance use status: uncomplicated Qualified Code(s): F14.20 - Cocaine dependence, uncomplicated (7) Depressive disorder Current Visit: No Status: Chronic - Initial Treatment Plan Initial Treatment Plan: Trazodone 159m,g p[o qhs. Remeron 30mg po qhs
[2017-12-22] MEDS ORDERED: amLODIPine BESYLATE 5 MG TABLET (FP) PO ONE (16:15)
[2017-12-22] MEDS ORDERED: INSULIN SLIDING SCALE (NOVOLOG) 1 VIAL SQ SCH (16:30)
[2017-12-22 17:43] LABS: URINE APPEARANCE CLEAR; URINE BILIRUBIN NEGATIVE (NEGATIVE); URINE BLOOD 1+ (NEGATIVE); URINE COLOR STRAW; URINE GLUCOSE (UA) 3+ (NEGATIVE); URINE KETONE 1+ (NEGATIVE); URINE LEUK ESTERASE NEGATIVE (NEGATIVE); URINE NITRITE NEGATIVE (NEGATIVE); URINE PROTEIN 1+ (NEGATIVE); URINE UROBILINOGEN NEGATIVE mg/dL (0.2-1.0)
[2017-12-22 17:46] LABS: EPI CELLS RARE /HPF (FEW)
[2017-12-22] MEDS: chlordiazePOXIDE HCL 25 MG CAPSULE PO SCH ×2 (17:49→22:03)
[2017-12-22] MEDS: INSULIN SLIDING SCALE (NOVOLOG) 1 VIAL SQ SCH (17:54)
[2017-12-22] MEDS ORDERED: METHOCARBAMOL 500 MG TABLET PO ONE (18:00)
[2017-12-22] MEDS: MIRTAZAPINE 30 MG TABLET (FP) PO SCH (21:53)
[2017-12-22] MEDS: traZODone HCL 50 MG TABLET (FP) PO SCH (21:53)
[2017-12-22] MEDS: THIAMINE HCL 100 MG TABLET (FP) PO SCH (21:53)
[2017-12-23] MEDS: chlordiazePOXIDE HCL 25 MG CAPSULE PO SCH ×4 (05:27→22:01)
[2017-12-23] MEDS ORDERED: INSULIN (NOVOLOG) ASPART 100 UNITS/ML 10ML VIAL ONE ×3 (08:02→16:55)
[2017-12-23] MEDS: INSULIN SLIDING SCALE (NOVOLOG) 1 VIAL SQ SCH ×3 (08:13→17:17)
[2017-12-23 10:14] LABS: HEMATOCRIT 35.7 % (32.4-45.2); HEMOGLOBIN 11.3 GM/dL (10.7-15.3); MCH 28.3 pg (25.7-33.7); MCHC 31.6 g/dl (32.0-36.0); MEAN CELL VOLUME 89.4 fl (80-96); PLATELET COUNT 221 K/MM3 (134-434); RBC 3.99 M/mm3 (3.60-5.2); RDW 16.4 % (11.6-15.6); WHITE BLOOD COUNT 2.6 K/mm3 (4.0-10.0)
[2017-12-23] MEDS: INSULIN DETEMIR 100 UNITS/ML MDV SQ SCH ×2 (10:34→22:01)
[2017-12-23] MEDS: PRENATAL VITAMINS W/ FOLIC ACID TABLET (FP) PO SCH (10:34)
[2017-12-23 11:31] LABS: CHLORIDE 99 mmol/L (98-107); POTASSIUM 4.2 mmol/L (3.5-5.1); SODIUM 132 mmol/L (136-145)
[2017-12-23 11:42] LABS: ALBUMIN 2.4 g/dl (3.4-5.0); ALK PHOS 245 U/L (45-117); ANION GAP 12 (8-16); BILIRUBIN,TOTAL 0.4 mg/dL (0.2-1.0); BLOOD UREA NITROGEN 13 mg/dL (7-18); CALCIUM 8.1 mg/dL (8.5-10.1); CO2 21 mmol/L (21-32); CREATININE 0.7 mg/dL (0.55-1.02); SGOT/AST 55 U/L (15-37); SGPT/ALT 67 U/L (12-78); TOT PROT 7.1 g/dl (6.4-8.2)
[2017-12-23 12:26] LABS: SICKLE CELL SCREEN NEGATIVE (NEGATIVE)
[2017-12-23 12:37] LABS: GLUCOSE,RANDOM 557 mg/dL (74-106)
--- NOTE | 2017-12-23 14:36 | PN ---
[facility] CIWA - CIWA Score Nausea/Vomitin-Mild Nausea/No Vomiting Muscle Tremors: 3 Anxiety: 4-Mod. Anxious/Guarded Agitation: 3 Paroxysmal Sweats: 2 Orientation: 0-Oriented Tacttile Disturbances: 0-None Auditory Disturbances: 0-None Visual Disturbances: 0-None Headache: 2-Mild CIWA-Ar Total Score: 15 S Progress Note (SOAP) Objective: 12/23/17 14:35 Laboratory Tests 12/22/17 12/22/17 12/22/17 11:08 13:59 15:00 WBC RBC Hgb Hct MCV MCH MCHC RDW Plt Count MPV Sickle Cell Screen Sodium Potassium Chloride Carbon Dioxide Anion Gap BUN Creatinine Creat Clearance w eGFR POC Glucometer 506 517 Random Glucose Calcium Total Bilirubin AST ALT Alkaline Phosphatase Total Protein Albumin Urine Color Straw Urine Appearance Clear Urine pH 7.0 Ur Specific [place] 1.028 Urine Protein 1+ H Urine Glucose (UA) 3+ H Urine Ketones 1+ H Urine Blood 1+ H Urine Nitrite Negative Urine Bilirubin Negative Urine Urobilinogen Negative Ur Leukocyte Esterase Negative Urine WBC (Auto) 1 Urine RBC (Auto) 1 Ur Epithelial Cells Rare RPR Titer 12/22/17 12/23/17 12/23/17 16:45 05:27 06:00 WBC RBC Hgb Hct MCV MCH MCHC RDW Plt Count MPV Sickle Cell Screen Sodium 132 L Potassium 4.2 Chloride 99 Carbon Dioxide 21 Anion Gap 12 BUN 13 Creatinine 0.7 Creat Clearance w eGFR > 60 POC Glucometer 377 350 Random Glucose 557 H* Calcium 8.1 L Total Bilirubin 0.4 D AST 55 H ALT 67 Alkaline Phosphatase 245 H Total Protein 7.1 Albumin 2.4 L Urine Color Urine Appearance Urine pH Ur Specific [place] Urine Protein Urine Glucose (UA) Urine Ketones Urine Blood Urine Nitrite Urine Bilirubin Urine Urobilinogen Ur Leukocyte Esterase Urine WBC (Auto) Urine RBC (Auto) Ur Epithelial Cells RPR Titer 12/23/17 12/23/17 06:00 06:00 WBC 2.6 L RBC 3.99 Hgb 11.3 Hct 35.7 MCV 89.4 MCH 28.3 MCHC 31.6 L RDW 16.4 H Plt Count 221 D MPV 9.0 Sickle Cell Screen Negative Sodium Potassium Chloride Carbon Dioxide Anion Gap BUN Creatinine Creat Clearance w eGFR POC Glucometer Random Glucose Calcium Total Bilirubin AST ALT Alkaline Phosphatase Total Protein Albumin Urine Color Urine Appearance Urine pH Ur Specific [place] Urine Protein Urine Glucose (UA) Urine Ketones Urine Blood Urine Nitrite Urine Bilirubin Urine Urobilinogen Ur Leukocyte Esterase Urine WBC (Auto) Urine RBC (Auto) Ur Epithelial Cells RPR Titer Nonreactive Vital Signs - 24 hr 12/22/17 12/22/17 12/22/17 14:40 18:37 23:10 Temperature 98.2 F 98.4 F 98.2 F Pulse Rate 95 H 96 H 100 H Respiratory 20 16 17 Rate Blood Pressure 160/95 152/93 157/96 12/23/17 12/23/17 12/23/17 00:59 03:30 06:00 Temperature 98.1 F Pulse Rate 92 H Respiratory 18 18 18 Rate Blood Pressure 135/77 12/23/17 09:37 Temperature 98.1 F Pulse Rate 100 H Respiratory 18 Rate Blood Pressure 138/81 Assessment: 12/23/17 14:35 ongoing withdrawal Plan: continue detox protocol
[2017-12-23] MEDS: IBUPROFEN 400 MG TABLET (FP) PO PRN (17:16)
[2017-12-23] MEDS: THIAMINE HCL 100 MG TABLET (FP) PO SCH (22:01)
[2017-12-23] MEDS: MIRTAZAPINE 30 MG TABLET (FP) PO SCH (22:01)
[2017-12-23] MEDS: LOPERAMIDE HCL 2 MG CAPSULE PO PRN (22:01)
[2017-12-23] MEDS: traZODone HCL 50 MG TABLET (FP) PO SCH (22:01)
[2017-12-24] MEDS: chlordiazePOXIDE HCL 25 MG CAPSULE PO SCH ×2 (06:02→10:40)
--- NOTE | 2017-12-24 07:55 | EKG ---
Test Reason : Blood Pressure : / mmHG Vent. Rate : 099 BPM Atrial Rate : 099 BPM P-R Int : 134 ms QRS Dur : 082 ms QT Int : 380 ms P-R-T Axes : 062 023 053 degrees QTc Int : 487 ms NORMAL SINUS RHYTHM POSSIBLE LEFT ATRIAL ENLARGEMENT PROLONGED QT ABNORMAL ECG WHEN COMPARED WITH ECG OF 22-DEC-2017 13:13, SINUS RHYTHM HAS REPLACED ECTOPIC ATRIAL RHYTHM ST NO LONGER DEPRESSED IN ANTERIOR LEADS Confirmed by NOA BLAIR, BAIRON ([id number]) on 12/24/2017 7:54:41 AM Referred By: Confirmed By:BAIRON LATHAM MD
--- NOTE | 2017-12-24 07:55 | EKG ---
Test Reason : Blood Pressure : / mmHG Vent. Rate : 088 BPM Atrial Rate : 088 BPM P-R Int : 140 ms QRS Dur : 076 ms QT Int : 398 ms P-R-T Axes : 270 046 050 degrees QTc Int : 481 ms UNUSUAL P AXIS, POSSIBLE ECTOPIC ATRIAL RHYTHM PROLONGED QT ABNORMAL ECG WHEN COMPARED WITH ECG OF 24-OCT-2017 19:38, ECTOPIC ATRIAL RHYTHM HAS REPLACED SINUS RHYTHM NONSPECIFIC T WAVE ABNORMALITY NO LONGER EVIDENT IN INFERIOR LEADS NONSPECIFIC T WAVE ABNORMALITY NO LONGER EVIDENT IN LATERAL LEADS Confirmed by NOA BLAIR, BAIRON ([id number]) on 12/24/2017 7:54:48 AM Referred By: Confirmed By:BAIRON LATHAM MD
[2017-12-24] MEDS ORDERED: INSULIN (NOVOLOG) ASPART 100 UNITS/ML 10ML VIAL ONE ×3 (08:29→17:25)
[2017-12-24] MEDS: INSULIN SLIDING SCALE (NOVOLOG) 1 VIAL SQ SCH ×3 (08:32→17:39)
[2017-12-24] MEDS: PRENATAL VITAMINS W/ FOLIC ACID TABLET (FP) PO SCH (10:40)
[2017-12-24] MEDS: INSULIN DETEMIR 100 UNITS/ML MDV SQ SCH ×2 (10:41→22:03)
[2017-12-24] MEDS ORDERED: LISINOPRIL 20 MG TABLET (FP) PO ONE (14:05)
[2017-12-24] MEDS: guaiFENesin/D-METHORPHAN HB 10 ML UNIT-DOSE CUPS PO PRN (15:22)
--- NOTE | 2017-12-24 15:42 | PN ---
[facility] CIWA - CIWA Score Nausea/Vomitin Muscle Tremors: 3 Anxiety: 3 Agitation: 2 Paroxysmal Sweats: 3 Orientation: 0-Oriented Tacttile Disturbances: 1-Very Mild Itch/Numbness Auditory Disturbances: 0-None Visual Disturbances: 0-None Headache: 0-None Present CIWA-Ar Total Score: 15 S Progress Note (SOAP) Subjective: IS, sweaats, shakes, decreased apetite Objective: 12/24/17 15:40 Vital Signs Temperature 99.0 F 12/24/17 13:21 Pulse Rate 108 H 12/24/17 13:21 Respiratory Rate 18 12/24/17 13:21 Blood Pressure 150/90 12/24/17 13:21 O2 Sat by Pulse Oximetry (%) Laboratory Tests 12/22/17 12/22/17 12/22/17 11:08 13:59 15:00 WBC RBC Hgb Hct MCV MCH MCHC RDW Plt Count MPV Sickle Cell Screen Sodium Potassium Chloride Carbon Dioxide Anion Gap BUN Creatinine Creat Clearance w eGFR POC Glucometer 506 517 Random Glucose Calcium Total Bilirubin AST ALT Alkaline Phosphatase Total Protein Albumin Urine Color Straw Urine Appearance Clear Urine pH 7.0 Ur Specific [place] 1.028 Urine Protein 1+ H Urine Glucose (UA) 3+ H Urine Ketones 1+ H Urine Blood 1+ H Urine Nitrite Negative Urine Bilirubin Negative Urine Urobilinogen Negative Ur Leukocyte Esterase Negative Urine WBC (Auto) 1 Urine RBC (Auto) 1 Ur Epithelial Cells Rare RPR Titer 12/22/17 12/22/17 12/23/17 16:45 21:50 05:27 WBC RBC Hgb Hct MCV MCH MCHC RDW Plt Count MPV Sickle Cell Screen Sodium Potassium Chloride Carbon Dioxide Anion Gap BUN Creatinine Creat Clearance w eGFR POC Glucometer 377 354 350 Random Glucose Calcium Total Bilirubin AST ALT Alkaline Phosphatase Total Protein Albumin Urine Color Urine Appearance Urine pH Ur Specific [place] Urine Protein Urine Glucose (UA) Urine Ketones Urine Blood Urine Nitrite Urine Bilirubin Urine Urobilinogen Ur Leukocyte Esterase Urine WBC (Auto) Urine RBC (Auto) Ur Epithelial Cells RPR Titer 12/23/17 12/23/17 12/23/17 06:00 06:00 06:00 WBC 2.6 L RBC 3.99 Hgb 11.3 Hct 35.7 MCV 89.4 MCH 28.3 MCHC 31.6 L RDW 16.4 H Plt Count 221 D MPV 9.0 Sickle Cell Screen Negative Sodium 132 L Potassium 4.2 Chloride 99 Carbon Dioxide 21 Anion Gap 12 BUN 13 Creatinine 0.7 Creat Clearance w eGFR > 60 POC Glucometer Random Glucose 557 H* Calcium 8.1 L Total Bilirubin 0.4 D AST 55 H ALT 67 Alkaline Phosphatase 245 H Total Protein 7.1 Albumin 2.4 L Urine Color Urine Appearance Urine pH Ur Specific [place] Urine Protein Urine Glucose (UA) Urine Ketones Urine Blood Urine Nitrite Urine Bilirubin Urine Urobilinogen Ur Leukocyte Esterase Urine WBC (Auto) Urine RBC (Auto) Ur Epithelial Cells RPR Titer Nonreactive 12/23/17 12/23/17 12/23/17 12:22 13:55 16:31 WBC RBC Hgb Hct MCV MCH MCHC RDW Plt Count MPV Sickle Cell Screen Sodium Potassium Chloride Carbon Dioxide Anion Gap BUN Creatinine Creat Clearance w eGFR POC Glucometer 470 561 > 600 Random Glucose Calcium Total Bilirubin AST ALT Alkaline Phosphatase Total Protein Albumin Urine Color Urine Appearance Urine pH Ur Specific [place] Urine Protein Urine Glucose (UA) Urine Ketones Urine Blood Urine Nitrite Urine Bilirubin Urine Urobilinogen Ur Leukocyte Esterase Urine WBC (Auto) Urine RBC (Auto) Ur Epithelial Cells RPR Titer 12/23/17 12/24/17 12/24/17 21:58 05:59 11:47 WBC RBC Hgb Hct MCV MCH MCHC RDW Plt Count MPV Sickle Cell Screen Sodium Potassium Chloride Carbon Dioxide Anion Gap BUN Creatinine Creat Clearance w eGFR POC Glucometer > 600 518 502 Random Glucose Calcium Total Bilirubin AST ALT Alkaline Phosphatase Total Protein Albumin Urine Color Urine Appearance Urine pH Ur Specific [place] Urine Protein Urine Glucose (UA) Urine Ketones Urine Blood Urine Nitrite Urine Bilirubin Urine Urobilinogen Ur Leukocyte Esterase Urine WBC (Auto) Urine RBC (Auto) Ur Epithelial Cells RPR Titer pt sitting on side of bed in nad. Assessment: 12/24/17 15:41 withdrawal sx's dm Plan: cont detox glucerna bis increase fluids daily bgm and coverage
[2017-12-24] MEDS: chlordiazePOXIDE 5 MG CAPSULE PO SCH ×2 (17:39→22:01)
[2017-12-24] MEDS: IBUPROFEN 400 MG TABLET (FP) PO PRN (17:40)
[2017-12-24] MEDS: LOPERAMIDE HCL 2 MG CAPSULE PO PRN (17:40)
[2017-12-24] MEDS: chlordiazePOXIDE HCL 25 MG CAPSULE PO PRN (19:48)
[2017-12-24] MEDS ORDERED: LOPERAMIDE HCL 2 MG CAPSULE PO ONE (20:00)
[2017-12-24] MEDS: traZODone HCL 50 MG TABLET (FP) PO SCH (22:01)
[2017-12-24] MEDS: THIAMINE HCL 100 MG TABLET (FP) PO SCH (22:01)
[2017-12-24] MEDS: MIRTAZAPINE 30 MG TABLET (FP) PO SCH (22:01)
[2017-12-25] MEDS: INSULIN SLIDING SCALE (NOVOLOG) 1 VIAL SQ SCH ×3 (07:23→17:24)
[2017-12-25] MEDS: chlordiazePOXIDE 5 MG CAPSULE PO SCH ×2 (07:36→10:59)
[2017-12-25] MEDS ORDERED: INSULIN (NOVOLOG) ASPART 100 UNITS/ML 10ML VIAL ONE ×3 (07:48→16:44)
[2017-12-25] MEDS: PRENATAL VITAMINS W/ FOLIC ACID TABLET (FP) PO SCH (10:59)
[2017-12-25] MEDS: LISINOPRIL 20 MG TABLET (FP) PO SCH (10:59)
--- NOTE | 2017-12-25 11:44 | PN ---
[facility] Progress Note (SOAP) Subjective: sweat tremor anxiety Objective: 12/25/17 11:43 Vital Signs Temperature 97.7 F 12/25/17 09:49 Pulse Rate 93 H 12/25/17 09:49 Respiratory Rate 18 12/25/17 09:49 Blood Pressure 138/80 12/25/17 09:49 O2 Sat by Pulse Oximetry (%) Laboratory Last Values WBC 2.6 K/mm3 (4.0-10.0) L 12/23/17 06:00 RBC 3.99 M/mm3 (3.60-5.2) 12/23/17 06:00 Hgb 11.3 GM/dL (10.7-15.3) 12/23/17 06:00 Hct 35.7 % (32.4-45.2) 12/23/17 06:00 MCV 89.4 fl (80-96) 12/23/17 06:00 MCH 28.3 pg (25.7-33.7) 12/23/17 06:00 MCHC 31.6 g/dl (32.0-36.0) L 12/23/17 06:00 RDW 16.4 % (11.6-15.6) H 12/23/17 06:00 Plt Count 221 K/MM3 (134-434) D 12/23/17 06:00 MPV 9.0 fl (7.5-11.1) 12/23/17 06:00 Sickle Cell Screen Negative (NEGATIVE) 12/23/17 06:00 Sodium 132 mmol/L (136-145) L 12/23/17 06:00 Potassium 4.2 mmol/L (3.5-5.1) 12/23/17 06:00 Chloride 99 mmol/L (98-107) 12/23/17 06:00 Carbon Dioxide 21 mmol/L (21-32) 12/23/17 06:00 Anion Gap 12 (8-16) 12/23/17 06:00 BUN 13 mg/dL (7-18) 12/23/17 06:00 Creatinine 0.7 mg/dL (0.55-1.02) 12/23/17 06:00 Creat Clearance w eGFR > 60 (>60) 12/23/17 06:00 POC Glucometer 431 UNITS (80-120) 12/25/17 06:22 Random Glucose 557 mg/dL (74-106) H* 12/23/17 06:00 Calcium 8.1 mg/dL (8.5-10.1) L 12/23/17 06:00 Total Bilirubin 0.4 mg/dL (0.2-1.0) D 12/23/17 06:00 AST 55 U/L (15-37) H 12/23/17 06:00 ALT 67 U/L (12-78) 12/23/17 06:00 Alkaline Phosphatase 245 U/L (45-117) H 12/23/17 06:00 Total Protein 7.1 g/dl (6.4-8.2) 12/23/17 06:00 Albumin 2.4 g/dl (3.4-5.0) L 12/23/17 06:00 Urine Color Straw 12/22/17 15:00 Urine Appearance Clear 12/22/17 15:00 Urine pH 7.0 (5.0-8.0) 12/22/17 15:00 Ur Specific [place] 1.028 (1.001-1.035) 12/22/17 15:00 Urine Protein 1+ (NEGATIVE) H 12/22/17 15:00 Urine Glucose (UA) 3+ (NEGATIVE) H 12/22/17 15:00 Urine Ketones 1+ (NEGATIVE) H 12/22/17 15:00 Urine Blood 1+ (NEGATIVE) H 12/22/17 15:00 Urine Nitrite Negative (NEGATIVE) 12/22/17 15:00 Urine Bilirubin Negative (NEGATIVE) 12/22/17 15:00 Urine Urobilinogen Negative mg/dL (0.2-1.0) 12/22/17 15:00 Ur Leukocyte Esterase Negative (NEGATIVE) 12/22/17 15:00 Urine WBC (Auto) 1 /hpf (3-5) 12/22/17 15:00 Urine RBC (Auto) 1 /hpf (0-3) 12/22/17 15:00 Ur Epithelial Cells Rare /HPF (FEW) 12/22/17 15:00 RPR Titer Nonreactive (NONREACTIVE) 12/23/17 06:00 lab noted Assessment: 12/25/17 11:43 withdrawal sx Plan: continue detox
[2017-12-25] MEDS: INSULIN DETEMIR 100 UNITS/ML MDV SQ SCH ×2 (12:04→22:04)
[2017-12-25] MEDS: chlordiazePOXIDE HCL 10 MG CAPSULE PO SCH ×2 (17:23→22:03)
[2017-12-25] MEDS: MIRTAZAPINE 30 MG TABLET (FP) PO SCH (22:03)
[2017-12-25] MEDS: THIAMINE HCL 100 MG TABLET (FP) PO SCH (22:03)
[2017-12-25] MEDS: traZODone HCL 50 MG TABLET (FP) PO SCH (22:03)
[2017-12-26] MEDS: chlordiazePOXIDE HCL 10 MG CAPSULE PO SCH ×2 (05:44→10:37)
[2017-12-26] MEDS ORDERED: INSULIN (NOVOLOG) ASPART 100 UNITS/ML 10ML VIAL ONE ×4 (06:40→22:54)
[2017-12-26] MEDS: INSULIN SLIDING SCALE (NOVOLOG) 1 VIAL SQ SCH ×4 (06:58→22:55)
--- NOTE | 2017-12-26 10:00 | DS ---
[facility] Detox Discharge Summary Admission Date: 12/22/17 Discharge Date: 12/26/17 - History Present History: Alcohol Dependence Pertinent Past History: GERD HTN Type II DM - Physical Exam Results Vital Signs: Vital Signs Temperature 96.6 F L 12/26/17 09:42 Pulse Rate 102 H 12/26/17 09:42 Respiratory Rate 20 12/26/17 09:42 Blood Pressure 132/85 12/26/17 09:42 O2 Sat by Pulse Oximetry (%) Pertinent Admission Physical Exam Findings: Withdrawal sx. Laboratory Tests 12/22/17 12/22/17 12/22/17 11:08 13:59 15:00 WBC RBC Hgb Hct MCV MCH MCHC RDW Plt Count MPV Sickle Cell Screen Sodium Potassium Chloride Carbon Dioxide Anion Gap BUN Creatinine Creat Clearance w eGFR POC Glucometer 506 517 Random Glucose Calcium Total Bilirubin AST ALT Alkaline Phosphatase Total Protein Albumin Urine Color Straw Urine Appearance Clear Urine pH 7.0 Ur Specific [place] 1.028 Urine Protein 1+ H Urine Glucose (UA) 3+ H Urine Ketones 1+ H Urine Blood 1+ H Urine Nitrite Negative Urine Bilirubin Negative Urine Urobilinogen Negative Ur Leukocyte Esterase Negative Urine WBC (Auto) 1 Urine RBC (Auto) 1 Ur Epithelial Cells Rare RPR Titer 12/23/17 12/23/17 12/23/17 06:00 06:00 06:00 WBC 2.6 L RBC 3.99 Hgb 11.3 Hct 35.7 MCV 89.4 MCH 28.3 MCHC 31.6 L RDW 16.4 H Plt Count 221 D MPV 9.0 Sickle Cell Screen Negative Sodium 132 L Potassium 4.2 Chloride 99 Carbon Dioxide 21 Anion Gap 12 BUN 13 Creatinine 0.7 Creat Clearance w eGFR > 60 POC Glucometer Random Glucose 557 H* Calcium 8.1 L Total Bilirubin 0.4 D AST 55 H ALT 67 Alkaline Phosphatase 245 H Total Protein 7.1 Albumin 2.4 L Urine Color Urine Appearance Urine pH Ur Specific [place] Urine Protein Urine Glucose (UA) Urine Ketones Urine Blood Urine Nitrite Urine Bilirubin Urine Urobilinogen Ur Leukocyte Esterase Urine WBC (Auto) Urine RBC (Auto) Ur Epithelial Cells RPR Titer Nonreactive labs noted - Treatment Hospital Course: Detox Protocol Followed, Detoxed Safely, Responded well, Discharged Condition Good, Rehab Referral Accepted Patient has Accepted a Rehab Referral to: IOP - Medication Discharge Medications: Ambulatory Orders Lisinopril [Prinivil] 20 mg PO DAILY #30 tablet 11/27/16 Ranitidine [Zantac -] 150 mg PO BID #60 tablet 11/27/16 Gabapentin [Neurontin -] 400 mg PO TID #90 cap 04/09/17 Pregabalin [Lyrica] 150 mg PO HS 04/30/17 Insulin Glargine,Hum.rec.anlog [Lantus Solostar PEN -] 40 units SQ HS 10/20/17 Insulin Lispro [Humalog] 0 unit SQ TIDCM 10/20/17 Naproxen Sodium 275 mg PO BID #6 tablet 10/27/17 Mirtazapine [Remeron -] 30 mg PO HS #30 tablet 12/22/17 Trazodone HCl [Desyrel -] 150 mg PO HS #30 tablet 12/22/17 - Diagnosis (1) Drug-induced mood disorder Current Visit: Yes Status: Acute (2) Insulin dependent diabetes mellitus Current Visit: Yes Status: Acute (3) Alcohol dependence with uncomplicated withdrawal Current Visit: No Status: Chronic (4) Alcohol-induced anxiety disorder Current Visit: No Status: Chronic (5) Alcohol-induced mood disorder Current Visit: No Status: Chronic (6) Alcohol-induced sleep disorder Current Visit: No Status: Chronic (7) GERD (gastroesophageal reflux disease) Current Visit: No Status: Chronic Qualifiers: Esophagitis presence: without esophagitis Qualified Code(s): K21.9 - Gastro -esophageal reflux disease without esophagitis (8) Hypertension Current Visit: No Status: Chronic Qualifiers: Hypertension type: essential hypertension Qualified Code(s): I10 - Essential (primary) hypertension (9) Nicotine dependence Current Visit: No Status: Chronic Qualifiers: Nicotine product type: cigarettes Substance use status: uncomplicated Qualified Code(s): F17.210 - Nicotine dependence, cigarettes, uncomplicated - AMA Did Patient Leave Against Medical Advice: No
[2017-12-26] MEDS: LISINOPRIL 20 MG TABLET (FP) PO SCH (10:37)
[2017-12-26] MEDS: PRENATAL VITAMINS W/ FOLIC ACID TABLET (FP) PO SCH (10:37)
[2017-12-26] MEDS: INSULIN DETEMIR 100 UNITS/ML MDV SQ SCH ×2 (10:40→22:55)
[2017-12-26] MEDS: THIAMINE HCL 100 MG TABLET (FP) PO SCH (22:54)
[2017-12-26] MEDS: traZODone HCL 50 MG TABLET (FP) PO SCH (22:55)
[2017-12-26] MEDS: MIRTAZAPINE 30 MG TABLET (FP) PO SCH (22:55)
[2017-12-26 23:28] VITALS: TEMP 97.7
[2017-12-27 06:54] VITALS: BP 142/80; PULSE 92
[2017-12-27] MEDS ORDERED: INSULIN (NOVOLOG) ASPART 100 UNITS/ML 10ML VIAL ONE (07:15)
[2017-12-27] MEDS: INSULIN SLIDING SCALE (NOVOLOG) 1 VIAL SQ SCH (07:36)
== END 2017-12-27 08:45 | disposition home or self-care (01) | DRG 897 ==
LOC: YASAS 08:48 → Y6N 12:26
PROVIDERS: ADMIT Internal Medicine; ATTEND Internal Medicine
PROC: HZ2ZZZZ Detoxification Services for Substance Abuse Treatment (ICD-10-PCS; principal; 2017-12-22)
DX: F10.230 Alcohol dependence with withdrawal, uncomplicated (principal); F14.20 Cocaine dependence, uncomplicated; F17.210 Nicotine dependence, cigarettes, uncomplicated; F10.24 Alcohol dependence with alcohol-induced mood disorder; F10.282 Alcohol dependence with alcohol-induced sleep disorder; F10.280 Alcohol dependence with alcohol-induced anxiety disorder; F19.24 Other psychoactive substance dependence with psychoactive substance-induced mood disorder; E11.9 Type 2 diabetes mellitus without complications; Z79.4 Long term (current) use of insulin; I10 Essential (primary) hypertension; K21.9 Gastro-esophageal reflux disease without esophagitis; G62.9 Polyneuropathy, unspecified
CPT/HCPCS: 36415; 80053; 81003; 81015; 82962; 85027; 85660; 86593; 93005; 93010

== ENCOUNTER 2017-12-27 14:44 | Inpatient (IN) | payer OTHER ==
[2017-12-27] MEDS ORDERED: guaiFENesin/D-METHORPHAN HB 10 ML UNIT-DOSE CUPS PO PRN (15:05)
[2017-12-27] MEDS ORDERED: MENTHOL/PHENOL 1 EACH UD MM PRN (15:05)
[2017-12-27] MEDS ORDERED: MAG HYDROX/AL HYDROX/SIMETH 30 ML UNIT-DOSE CUP PO PRN (15:05)
[2017-12-27] MEDS ORDERED: IBUPROFEN 400 MG TABLET (FP) PO PRN (15:05)
[2017-12-27] MEDS ORDERED: ACETAMINOPHEN 325 MG TABLET (FP) PO PRN (15:05)
[2017-12-27] MEDS ORDERED: LOPERAMIDE HCL 2 MG CAPSULE PO PRN (15:05)
[2017-12-27] MEDS ORDERED: NICOTINE POLACRILEX 2 MG GUM BC PRN (15:05)
[2017-12-27] MEDS ORDERED: MAGNESIUM HYDROX 2400MG/30ML ORAL SUSPENSION 30 ML CUP PO PRN (15:05)
[2017-12-27] MEDS ORDERED: MAGNESIUM CITRATE 300 ML BOTTLE PO PRN (15:05)
[2017-12-27] MEDS ORDERED: P-EPHED 60MG/TRIPROLIDI 2.5MG TABLET PO PRN (15:05)
--- NOTE | 2017-12-27 15:24 | PN ---
[facility] Progress Note Note: Pt was held for d/c on Friday12/29/17. Somehow her counselor re-arranged the d/ c for today to [facility]. However pt. cannot get emergency medicaid until Friday to get her insulin. The residential program cannot provide insulin. I was asked by [facility] to accept pt. back for d/c on Friday.
[2017-12-27] MEDS ORDERED: INSULIN (NOVOLOG) ASPART 100 UNITS/ML 10ML VIAL ONE ×2 (16:45→22:32)
[2017-12-27] MEDS: INSULIN SLIDING SCALE (NOVOLOG) 1 VIAL SQ SCH ×2 (17:17→22:37)
[2017-12-27] MEDS: THIAMINE HCL 100 MG TABLET (FP) PO SCH (22:33)
[2017-12-27] MEDS: RANITIDINE HCL 150 MG TABLET (FP) PO SCH (22:33)
[2017-12-27] MEDS: PREGABALIN 75 MG CAPSULE PO SCH (22:33)
[2017-12-27] MEDS: INSULIN DETEMIR 100 UNITS/ML MDV SQ SCH (22:36)
[2017-12-28] MEDS ORDERED: INSULIN (NOVOLOG) ASPART 100 UNITS/ML 10ML VIAL ONE ×4 (08:02→21:49)
[2017-12-28] MEDS: INSULIN SLIDING SCALE (NOVOLOG) 1 VIAL SQ SCH ×4 (08:05→22:34)
[2017-12-28] MEDS ORDERED: NICOTINE 21 MG/24 HOURS TOPICAL PATCH TD SCH (10:00)
[2017-12-28] MEDS: LISINOPRIL 20 MG TABLET (FP) PO SCH (10:40)
[2017-12-28] MEDS: PRENATAL VITAMINS W/ FOLIC ACID TABLET (FP) PO SCH (10:40)
[2017-12-28 10:41] LABS: HEMATOCRIT 41.7 % (32.4-45.2); HEMOGLOBIN 13.3 GM/dL (10.7-15.3); MCH 28.1 pg (25.7-33.7); MCHC 31.9 g/dl (32.0-36.0); MEAN CELL VOLUME 87.9 fl (80-96); MEAN PLT VOLUME 9.1 fl (7.5-11.1); PLATELET COUNT 183 K/MM3 (134-434); RBC 4.74 M/mm3 (3.60-5.2); WHITE BLOOD COUNT 3.7 K/mm3 (4.0-10.0)
[2017-12-28] MEDS: RANITIDINE HCL 150 MG TABLET (FP) PO SCH ×2 (10:41→22:32)
[2017-12-28 10:50] LABS: ALBUMIN 2.3 g/dl (3.4-5.0); ANION GAP 8 (8-16); BILIRUBIN,TOTAL 0.3 mg/dL (0.2-1.0); BLOOD UREA NITROGEN 14 mg/dL (7-18); CALCIUM 9.1 mg/dL (8.5-10.1); CHLORIDE 110 mmol/L (98-107); CO2 24 mmol/L (21-32); CREATININE 0.5 mg/dL (0.55-1.02); GLUCOSE,RANDOM 177 mg/dL (74-106); POTASSIUM 4.1 mmol/L (3.5-5.1); SGOT/AST 69 U/L (15-37); SGPT/ALT 85 U/L (12-78); SODIUM 142 mmol/L (136-145); TOT PROT 7.4 g/dl (6.4-8.2)
[2017-12-28 10:51] LABS: ALK PHOS 176 U/L (45-117)
--- NOTE | 2017-12-28 10:59 | PN ---
[facility] Progress Note Note: patient will covered by medicaid and can obtain insulin from the pharmacy upon discharged from detox facility [facility] discharge order placed for 12/29/17 as planed
[2017-12-28 17:17] LABS: URINE APPEARANCE SLCLOUDY; URINE BILIRUBIN NEGATIVE (NEGATIVE); URINE BLOOD NEGATIVE (NEGATIVE); URINE COLOR LTYELLOW; URINE GLUCOSE (UA) 3+ (NEGATIVE); URINE KETONE NEGATIVE (NEGATIVE); URINE NITRITE NEGATIVE (NEGATIVE); URINE UROBILINOGEN NEGATIVE mg/dL (0.2-1.0)
[2017-12-28 17:21] LABS: URINE LEUK ESTERASE 3+ (NEGATIVE); URINE PROTEIN 1+ (NEGATIVE)
[2017-12-28 17:24] LABS: EPI CELLS FEW /HPF (FEW); URINE BACTERIA RARE /hpf (NONE SEEN); URINE MUCUS RARE; YEAST MANY
[2017-12-28] MEDS: THIAMINE HCL 100 MG TABLET (FP) PO SCH (22:31)
[2017-12-28] MEDS: PREGABALIN 75 MG CAPSULE PO SCH (22:32)
[2017-12-28] MEDS: INSULIN DETEMIR 100 UNITS/ML MDV SQ SCH (22:34)
[2017-12-29] MEDS ORDERED: INSULIN (NOVOLOG) ASPART 100 UNITS/ML 10ML VIAL ONE ×2 (07:33→12:20)
[2017-12-29] MEDS: INSULIN SLIDING SCALE (NOVOLOG) 1 VIAL SQ SCH ×4 (07:46→23:00)
[2017-12-29] MEDS ORDERED: INSULIN DETEMIR 100 UNITS/ML MDV SQ SCH ×2 (11:23→22:00)
--- NOTE | 2017-12-29 11:25 | PN ---
[facility] Progress Note (SOAP) Subjective: disoriented to time and place Objective: 12/29/17 11:24 Vital Signs Temperature 96.9 F L 12/29/17 11:00 Pulse Rate 100 H 12/29/17 11:00 Respiratory Rate 16 12/29/17 11:00 Blood Pressure 150/96 12/29/17 11:00 O2 Sat by Pulse Oximetry (%) Laboratory Last Values WBC 3.7 K/mm3 (4.0-10.0) L D 12/28/17 07:30 RBC 4.74 M/mm3 (3.60-5.2) 12/28/17 07:30 Hgb 13.3 GM/dL (10.7-15.3) D 12/28/17 07:30 Hct 41.7 % (32.4-45.2) D 12/28/17 07:30 MCV 87.9 fl (80-96) 12/28/17 07:30 MCH 28.1 pg (25.7-33.7) 12/28/17 07:30 MCHC 31.9 g/dl (32.0-36.0) L 12/28/17 07:30 RDW 16.0 % (11.6-15.6) H 12/28/17 07:30 Plt Count 183 K/MM3 (134-434) 12/28/17 07:30 MPV 9.1 fl (7.5-11.1) 12/28/17 07:30 Sodium 142 mmol/L (136-145) 12/28/17 07:30 Potassium 4.1 mmol/L (3.5-5.1) 12/28/17 07:30 Chloride 110 mmol/L (98-107) H 12/28/17 07:30 Carbon Dioxide 24 mmol/L (21-32) 12/28/17 07:30 Anion Gap 8 (8-16) 12/28/17 07:30 BUN 14 mg/dL (7-18) 12/28/17 07:30 Creatinine 0.5 mg/dL (0.55-1.02) L 12/28/17 07:30 Creat Clearance w eGFR > 60 (>60) 12/28/17 07:30 POC Glucometer 358 UNITS (80-120) 12/29/17 07:23 Random Glucose 177 mg/dL (74-106) H 12/28/17 07:30 Calcium 9.1 mg/dL (8.5-10.1) 12/28/17 07:30 Total Bilirubin 0.3 mg/dL (0.2-1.0) D 12/28/17 07:30 AST 69 U/L (15-37) H 12/28/17 07:30 ALT 85 U/L (12-78) H 12/28/17 07:30 Alkaline Phosphatase 176 U/L (45-117) H 12/28/17 07:30 Total Protein 7.4 g/dl (6.4-8.2) 12/28/17 07:30 Albumin 2.3 g/dl (3.4-5.0) L 12/28/17 07:30 Urine Color Ltyellow 12/28/17 10:05 Urine Appearance Slcloudy 12/28/17 10:05 Urine pH 7.0 (5.0-8.0) 12/28/17 10:05 Ur Specific [place] 1.022 (1.001-1.035) 12/28/17 10:05 Urine Protein 1+ (NEGATIVE) H 12/28/17 10:05 Urine Glucose (UA) 3+ (NEGATIVE) H 12/28/17 10:05 Urine Ketones Negative (NEGATIVE) 12/28/17 10:05 Urine Blood Negative (NEGATIVE) 12/28/17 10:05 Urine Nitrite Negative (NEGATIVE) 12/28/17 10:05 Urine Bilirubin Negative (NEGATIVE) 12/28/17 10:05 Urine Urobilinogen Negative mg/dL (0.2-1.0) 12/28/17 10:05 Ur Leukocyte Esterase 3+ (NEGATIVE) H 12/28/17 10:05 Urine WBC (Auto) 20 /hpf (3-5) 12/28/17 10:05 Urine RBC (Auto) 12 /hpf (0-3) 12/28/17 10:05 Ur Epithelial Cells Few /HPF (FEW) 12/28/17 10:05 Urine Bacteria Rare /hpf (NONE SEEN) 12/28/17 10:05 Urine Mucus Rare 12/28/17 10:05 Urine Yeast Many 12/28/17 10:05 RPR Titer Nonreactive (NONREACTIVE) 12/28/17 07:30 lab noted 12/29/17 11:28 history of ammonia serum elevation 12/29/17 15:48 ammonia 182 Assessment: 12/29/17 11:27 elevated serum glucose 12/29/17 11:29 rule out ammonia elevation 12/29/17 15:48 ammonia serum elevation Plan: ammonia level today begin lactulose qid increase oral fluid fall precaution case discuss with medical physicist doctor Seewald patient needs intensive medical management at this time ambulance was called information provided to the ER
[2017-12-29] MEDS: PRENATAL VITAMINS W/ FOLIC ACID TABLET (FP) PO SCH (12:34)
[2017-12-29] MEDS: RANITIDINE HCL 150 MG TABLET (FP) PO SCH ×2 (12:34→23:01)
[2017-12-29] MEDS: LACTULOSE 20 GM/30 ML UDC (FOR ORAL USE ONLY) PO SCH ×3 (12:34→23:00)
[2017-12-29] MEDS: LISINOPRIL 20 MG TABLET (FP) PO SCH (12:35)
--- NOTE | 2017-12-29 16:03 | DS ---
[facility] Detox Discharge Summary Admission Date: 12/27/17 Discharge Date: 12/29/17 - History Present History: Alcohol Dependence, Cocaine Dependence Additional Comments: patient to follow up at [facility] or [facility] for medical conditions as she does not have insurance, directed to go to emergency room today. Pertinent Past History: anxiety, derpression , insomnia, nicotien dependence, hepatic encephalopathy, dm - Physical Exam Results Vital Signs: Vital Signs Temperature 96.7 F L 12/29/17 15:27 Pulse Rate 91 H 12/29/17 15:27 Respiratory Rate 18 12/29/17 15:27 Blood Pressure 145/87 12/29/17 15:27 O2 Sat by Pulse Oximetry (%) Laboratory Tests 12/27/17 12/28/17 12/28/17 15:58 07:02 07:30 WBC 3.7 L D RBC 4.74 Hgb 13.3 D Hct 41.7 D MCV 87.9 MCH 28.1 MCHC 31.9 L RDW 16.0 H Plt Count 183 MPV 9.1 Sodium Potassium Chloride Carbon Dioxide Anion Gap BUN Creatinine Creat Clearance w eGFR POC Glucometer 497 173 Random Glucose Calcium Total Bilirubin AST ALT Alkaline Phosphatase Ammonia Total Protein Albumin Urine Color Urine Appearance Urine pH Ur Specific [place] Urine Protein Urine Glucose (UA) Urine Ketones Urine Blood Urine Nitrite Urine Bilirubin Urine Urobilinogen Ur Leukocyte Esterase Urine WBC (Auto) Urine RBC (Auto) Ur Epithelial Cells Urine Bacteria Urine Mucus Urine Yeast RPR Titer 12/28/17 12/28/17 12/28/17 07:30 07:30 10:05 WBC RBC Hgb Hct MCV MCH MCHC RDW Plt Count MPV Sodium 142 Potassium 4.1 Chloride 110 H Carbon Dioxide 24 Anion Gap 8 BUN 14 Creatinine 0.5 L Creat Clearance w eGFR > 60 POC Glucometer Random Glucose 177 H Calcium 9.1 Total Bilirubin 0.3 D AST 69 H ALT 85 H Alkaline Phosphatase 176 H Ammonia Total Protein 7.4 Albumin 2.3 L Urine Color Ltyellow Urine Appearance Slcloudy Urine pH 7.0 Ur Specific [place] 1.022 Urine Protein 1+ H Urine Glucose (UA) 3+ H Urine Ketones Negative Urine Blood Negative Urine Nitrite Negative Urine Bilirubin Negative Urine Urobilinogen Negative Ur Leukocyte Esterase 3+ H Urine WBC (Auto) 20 Urine RBC (Auto) 12 Ur Epithelial Cells Few Urine Bacteria Rare Urine Mucus Rare Urine Yeast Many RPR Titer Nonreactive 12/28/17 12/28/17 12/28/17 12:31 16:35 21:41 WBC RBC Hgb Hct MCV MCH MCHC RDW Plt Count MPV Sodium Potassium Chloride Carbon Dioxide Anion Gap BUN Creatinine Creat Clearance w eGFR POC Glucometer 477 467 498 Random Glucose Calcium Total Bilirubin AST ALT Alkaline Phosphatase Ammonia Total Protein Albumin Urine Color Urine Appearance Urine pH Ur Specific [place] Urine Protein Urine Glucose (UA) Urine Ketones Urine Blood Urine Nitrite Urine Bilirubin Urine Urobilinogen Ur Leukocyte Esterase Urine WBC (Auto) Urine RBC (Auto) Ur Epithelial Cells Urine Bacteria Urine Mucus Urine Yeast RPR Titer 12/29/17 12/29/17 12/29/17 07:23 11:19 11:45 WBC RBC Hgb Hct MCV MCH MCHC RDW Plt Count MPV Sodium Potassium Chloride Carbon Dioxide Anion Gap BUN Creatinine Creat Clearance w eGFR POC Glucometer 358 282 Random Glucose Calcium Total Bilirubin AST ALT Alkaline Phosphatase Ammonia 182.69 H Total Protein Albumin Urine Color Urine Appearance Urine pH Ur Specific [place] Urine Protein Urine Glucose (UA) Urine Ketones Urine Blood Urine Nitrite Urine Bilirubin Urine Urobilinogen Ur Leukocyte Esterase Urine WBC (Auto) Urine RBC (Auto) Ur Epithelial Cells Urine Bacteria Urine Mucus Urine Yeast RPR Titer hyperglycemia, elevate ammonia level noted Pertinent Admission Physical Exam Findings: withdrawal sx - Treatment Hospital Course: Detox Protocol Followed, Detoxed Safely, Responded well, Discharged Condition Good Patient has Accepted a Rehab Referral to: NO -does not have insurance - Medication Discharge Medications: Ambulatory Orders Lisinopril [Prinivil] 20 mg PO DAILY #30 tablet 11/27/16 Ranitidine [Zantac -] 150 mg PO BID #60 tablet 11/27/16 Gabapentin [Neurontin -] 400 mg PO TID #90 cap 04/09/17 Pregabalin [Lyrica] 150 mg PO HS 04/30/17 Insulin Glargine,Hum.rec.anlog [Lantus Solostar PEN -] 40 units SQ HS 10/20/17 Insulin Lispro [Humalog] 0 unit SQ TIDCM 10/20/17 Naproxen Sodium 275 mg PO BID #6 tablet 10/27/17 Mirtazapine [Remeron -] 30 mg PO HS #30 tablet 12/22/17 Trazodone HCl [Desyrel -] 150 mg PO HS #30 tablet 12/22/17 - Diagnosis (1) Drug-induced mood disorder Current Visit: No Status: Acute (2) Insulin dependent diabetes mellitus Current Visit: No Status: Acute (3) Alcohol dependence with uncomplicated withdrawal Current Visit: No Status: Chronic (4) Alcohol-induced anxiety disorder Current Visit: No Status: Chronic (5) Alcohol-induced mood disorder Current Visit: No Status: Chronic (6) Alcohol-induced sleep disorder Current Visit: No Status: Chronic (7) Chronic liver disease and cirrhosis Current Visit: No Status: Chronic (8) Diabetes mellitus, insulin dependent (IDDM), uncontrolled Current Visit: No Status: Chronic Qualifiers: Diabetes mellitus complication status: without complication (9) GERD (gastroesophageal reflux disease) Current Visit: No Status: Chronic Qualifiers: Esophagitis presence: without esophagitis Qualified Code(s): K21.9 - Gastro -esophageal reflux disease without esophagitis (10) Nicotine dependence Current Visit: No Status: Chronic Qualifiers: Nicotine product type: cigarettes Substance use status: uncomplicated Qualified Code(s): F17.210 - Nicotine dependence, cigarettes, uncomplicated (11) Polyneuropathy Current Visit: No Status: Chronic (12) Substance induced mood disorder Current Visit: No Status: Chronic - AMA Did Patient Leave Against Medical Advice: No
[2017-12-29 17:54] VITALS: BP 139/94; PULSE 95; TEMP 98.1
[2017-12-29] MEDS: PREGABALIN 75 MG CAPSULE PO SCH (23:00)
[2017-12-29] MEDS: THIAMINE HCL 100 MG TABLET (FP) PO SCH (23:01)
== END 2017-12-29 23:58 | disposition other institution (70) | DRG 897 ==
LOC: Y6N 14:44
PROVIDERS: ADMIT Internal Medicine; ATTEND Internal Medicine
PROC: HZ2ZZZZ Detoxification Services for Substance Abuse Treatment (ICD-10-PCS; principal; 2017-12-27)
DX: F10.230 Alcohol dependence with withdrawal, uncomplicated (principal); E72.20 Disorder of urea cycle metabolism, unspecified; F10.24 Alcohol dependence with alcohol-induced mood disorder; F10.280 Alcohol dependence with alcohol-induced anxiety disorder; F10.282 Alcohol dependence with alcohol-induced sleep disorder; F17.210 Nicotine dependence, cigarettes, uncomplicated; F19.24 Other psychoactive substance dependence with psychoactive substance-induced mood disorder; E10.65 Type 1 diabetes mellitus with hyperglycemia; K74.60 Unspecified cirrhosis of liver; K21.9 Gastro-esophageal reflux disease without esophagitis; G62.9 Polyneuropathy, unspecified; Z79.4 Long term (current) use of insulin
CPT/HCPCS: 36415; 80053; 81003; 81015; 82140; 82962; 85027; 86593

== ENCOUNTER 2017-12-29 16:52 | Inpatient (IN) | payer OTHER ==
--- NOTE | 2017-12-29 17:19 | PDOC ---
History of Present Illness - General History Source: Patient Exam Limitations: Clinical Condition - History of Present Illness Initial Comments: 12/29/17 17:51 The patient is a 47 year old female, with a significant past medical history of hypertension, depressive disorder, diabetes mellitus, chronic liver disease and cirrhosis, cocaine dependence, appendicitis, who presents to the emergency department via EMS from [facility] with increase in ammonia and altered mental status. Patient is not providing additional information. Allergies: See nursing notes. <Anil Goodrich - Last Filed: 12/29/17 17:51> <Janeen Pulido - Last Filed: 12/29/17 18:46> <Diego Hu - Last Filed: 12/29/17 21:59> <Mary Osorio - Last Filed: 12/29/17 23:47> - General Chief Complaint: Revisit, Lab Variance Stated Complaint: AMS Time Seen by Provider: 12/29/17 17:18 Past History <Anil Goodrich - Last Filed: 12/29/17 17:51> - Past Medical History Anemia: No Asthma: No Cancer: No Cardiac Disorders: No CVA: No COPD: No CHF: No Dementia: No Diabetes: Yes GI Disorders: No Disorders: No HTN: Yes (non compliant with meds.) Hypercholesterolemia: No Kidney Stones: No Liver Disease: No Seizures: No Thyroid Disease: No - Surgical History Abdominal Surgery: Yes (TUBAL LIGATION IN 2005) Appendectomy: Yes (10/25/17) Cardiac Surgery: No Cholecystectomy: No Lung Surgery: No Neurologic Surgery: No Orthopedic Surgery: Yes (neck, 11/30/2015 (fall);SX COCYX DUE TO OSTEOMYLITIS- 2010) - Reproductive History PID: No - Immunization History Immunization Up to Date: No - Suicide/Smoking/Psychosocial Hx Smoking History: Never smoked Have you smoked in the past 12 months: No Number of Cigarettes Smoked Daily: 0 Cigars Per Day: 0 'Breaking Loose' booklet given: 05/30/16 Hx Alcohol Use: Yes (VODKA) Drug/Substance Use Hx: Yes (CRACK) Substance Use Type: Alcohol, Cocaine Hx Substance Use Treatment: Yes <Janeen Pulido - Last Filed: 12/29/17 18:46> <Diego Hu - Last Filed: 12/29/17 21:59> <JoMary M - Last Filed: 12/29/17 23:47> - Past Medical History Allergies/Adverse Reactions: Allergies Allergy/AdvReac Type Severity Reaction Status Date / Time fish derived Allergy Severe Swelling Verified 12/29/17 17:11 shellfish derived Allergy Severe Swelling Verified 12/29/17 17:11 No Known Drug Allergies Allergy Verified 12/29/17 17:11 SEAFOOD Allergy Severe Swelling Uncoded 12/29/17 17:11 Home Medications: Ambulatory Orders Lisinopril [Prinivil] 20 mg PO DAILY #30 tablet 11/27/16 Ranitidine [Zantac -] 150 mg PO BID #60 tablet 11/27/16 Gabapentin [Neurontin -] 400 mg PO TID #90 cap 04/09/17 Pregabalin [Lyrica] 150 mg PO HS 04/30/17 Insulin Glargine,Hum.rec.anlog [Lantus Solostar PEN -] 40 units SQ HS 10/20/17 Insulin Lispro [Humalog] 0 unit SQ TIDCM 10/20/17 Naproxen Sodium 275 mg PO BID #6 tablet 10/27/17 Mirtazapine [Remeron -] 30 mg PO HS #30 tablet 12/22/17 Trazodone HCl [Desyrel -] 150 mg PO HS #30 tablet 12/22/17 Review of Systems - Review of Systems Able to Perform ROS?: No Comments:: 12/29/17 17:52 Unable to perform ROS secondary to clinical condition. <Anil Goodrich - Last Filed: 12/29/17 17:51> *Physical Exam - Vital Signs Last Vital Signs Temp Pulse Resp BP Pulse Ox 98.5 F 90 16 130/72 98 12/29/17 17:00 12/29/17 17:00 12/29/17 17:00 12/29/17 17:00 12/29/17 17:00 <Anil Goodrich - Last Filed: 12/29/17 17:51> - Physical Exam Comments: GENERAL: Awake, alert, confused, in no acute distress HEAD: No signs of trauma EYES: PERRLA, EOMI, sclera anicteric, conjunctiva clear ENT: Auricles normal inspection, hearing grossly normal, nares patent, oropharynx clear without exudates. Dry mucosa NECK: Normal ROM, supple, no lymphadenopathy, JVD, or masses LUNGS: Breath sounds equal, clear to auscultation bilaterally. No wheezes, and no crackles HEART: Regular rate and rhythm, normal S1 and S2, no murmurs, rubs or gallops ABDOMEN: Soft, nontender, normoactive bowel sounds. No guarding, no rebound. No masses EXTREMITIES: Normal range of motion, no edema. No clubbing or cyanosis. No cords, erythema, or tenderness NEUROLOGICAL: Cranial nerves II through XII grossly intact. Confused, speech is intelligible but content is nonsensical. Moving all extremities. Sensation intact. SKIN: Warm, Dry, normal turgor, no rashes or lesions noted. <Janeen Pulido - Last Filed: 12/29/17 18:46> - Vital Signs Last Vital Signs Temp Pulse Resp BP Pulse Ox 98.5 F 83 18 126/71 98 12/29/17 17:00 12/29/17 20:49 12/29/17 20:49 12/29/17 20:49 12/29/17 20:49 <Diego Hu - Last Filed: 12/29/17 21:59> - Vital Signs Last Vital Signs Temp Pulse Resp BP Pulse Ox 98.5 F 83 18 126/71 98 12/29/17 17:00 12/29/17 20:49 12/29/17 20:49 12/29/17 20:49 12/29/17 20:49 <Mary Osorio - Last Filed: 12/29/17 23:47> Heart Score/ECG Review - ECG Intrepretation Comment:: 12/29/17 22:00 Normal sinus rhythm Possible Left atrial enlargement Anterior infarct, Abnormal ECG Long Q , T waves. <Diego Hu - Last Filed: 12/29/17 21:59> ED Treatment Course - LABORATORY CBC & Chemistry Diagram: 12/29/17 18:07 12/29/17 18:07 <Janeen Pulido - Last Filed: 12/29/17 18:46> - LABORATORY CBC & Chemistry Diagram: 12/29/17 18:07 12/29/17 19:50 - ADDITIONAL ORDERS Additional order review: Laboratory Results 12/29/17 12/29/17 12/29/17 19:50 19:50 19:05 PT with INR INR Sodium 141 Potassium 4.4 Chloride 110 H Carbon Dioxide 21 Anion Gap 10 BUN 17 Creatinine 0.5 L Creat Clearance w eGFR > 60 Random Glucose 215 H Lactic Acid Calcium 8.6 Total Bilirubin 0.4 D AST 100 H ALT 107 H Alkaline Phosphatase 173 H Creatine Kinase 117 Troponin I 0.12 H Total Protein 7.7 Albumin 2.5 L Serum , Qual Negative Urine Color Urine Appearance Urine pH Ur Specific [place] Urine Protein Urine Glucose (UA) Urine Ketones Urine Blood Urine Nitrite Urine Bilirubin Urine Urobilinogen Ur Leukocyte Esterase Urine WBC (Auto) Urine RBC (Auto) Ur Epithelial Cells Urine Mucus Urine HCG, Qual Negative 12/29/17 12/29/17 12/29/17 18:37 18:27 18:07 PT with INR INR Sodium Potassium Chloride Carbon Dioxide Anion Gap BUN Creatinine Creat Clearance w eGFR Random Glucose Lactic Acid 1.8 Calcium Total Bilirubin AST ALT Alkaline Phosphatase Creatine Kinase Troponin I Total Protein Albumin Serum , Qual Cancelled Urine Color Yellow Urine Appearance Clear Urine pH 7.0 Ur Specific [place] 1.018 Urine Protein 1+ H Urine Glucose (UA) 3+ H Urine Ketones Negative Urine Blood Negative Urine Nitrite Negative Urine Bilirubin Negative Urine Urobilinogen 2.0 H Ur Leukocyte Esterase Negative Urine WBC (Auto) 1 Urine RBC (Auto) 2 Ur Epithelial Cells Rare Urine Mucus Rare Urine HCG, Qual 12/29/17 12/29/17 18:07 18:07 PT with INR 12.00 H INR 1.06 Sodium Cancelled Potassium Cancelled Chloride Cancelled Carbon Dioxide Cancelled Anion Gap Cancelled BUN Cancelled Creatinine Cancelled Creat Clearance w eGFR Cancelled Random Glucose Cancelled Lactic Acid Calcium Cancelled Total Bilirubin Cancelled AST Cancelled ALT Cancelled Alkaline Phosphatase Cancelled Creatine Kinase Troponin I Total Protein Cancelled Albumin Cancelled Serum , Qual Urine Color Urine Appearance Urine pH Ur Specific [place] Urine Protein Urine Glucose (UA) Urine Ketones Urine Blood Urine Nitrite Urine Bilirubin Urine Urobilinogen Ur Leukocyte Esterase Urine WBC (Auto) Urine RBC (Auto) Ur Epithelial Cells Urine Mucus Urine HCG, Qual 12/29/17 18:07 RBC 4.86 MCV 87.1 MCHC 33.0 RDW 16.9 H MPV 8.6 Neutrophils % 41.5 L Lymphocytes % 45.9 H D Monocytes % 10.9 H Eosinophils % 0.1 D Basophils % 1.6 D - Medications Given in the ED: ED Medications Discontinued Medications Generic Name Dose Route Start Last Admin Trade Name Alex PRN Reason Stop Dose Admin Lactulose 20 gm 12/29/17 17:20 12/29/17 18:00 Cephulac (Oral Use) PO 12/29/17 17:21 20 gm ONCE ONE Administration Lactulose 20 gm 12/29/17 21:14 12/29/17 21:48 Cephulac (Oral Use) PO 12/29/17 21:15 20 gm ONCE ONE Administration <FritzDiego - Last Filed: 12/29/17 21:59> - LABORATORY CBC & Chemistry Diagram: 12/29/17 18:07 12/29/17 19:50 - ADDITIONAL ORDERS Additional order review: Laboratory Results 12/29/17 12/29/17 12/29/17 19:50 19:50 19:05 PT with INR INR Sodium 141 Potassium 4.4 Chloride 110 H Carbon Dioxide 21 Anion Gap 10 BUN 17 Creatinine 0.5 L Creat Clearance w eGFR > 60 Random Glucose 215 H Lactic Acid Calcium 8.6 Total Bilirubin 0.4 D AST 100 H ALT 107 H Alkaline Phosphatase 173 H Creatine Kinase 117 Troponin I 0.12 H Total Protein 7.7 Albumin 2.5 L Serum , Qual Negative Urine Color Urine Appearance Urine pH Ur Specific [place] Urine Protein Urine Glucose (UA) Urine Ketones Urine Blood Urine Nitrite Urine Bilirubin Urine Urobilinogen Ur Leukocyte Esterase Urine WBC (Auto) Urine RBC (Auto) Ur Epithelial Cells Urine Mucus Urine HCG, Qual Negative 12/29/17 12/29/17 12/29/17 18:37 18:27 18:07 PT with INR INR Sodium Potassium Chloride Carbon Dioxide Anion Gap BUN Creatinine Creat Clearance w eGFR Random Glucose Lactic Acid 1.8 Calcium Total Bilirubin AST ALT Alkaline Phosphatase Creatine Kinase Troponin I Total Protein Albumin Serum , Qual Cancelled Urine Color Yellow Urine Appearance Clear Urine pH 7.0 Ur Specific [place] 1.018 Urine Protein 1+ H Urine Glucose (UA) 3+ H Urine Ketones Negative Urine Blood Negative Urine Nitrite Negative Urine Bilirubin Negative Urine Urobilinogen 2.0 H Ur Leukocyte Esterase Negative Urine WBC (Auto) 1 Urine RBC (Auto) 2 Ur Epithelial Cells Rare Urine Mucus Rare Urine HCG, Qual 12/29/17 12/29/17 18:07 18:07 PT with INR 12.00 H INR 1.06 Sodium Cancelled Potassium Cancelled Chloride Cancelled Carbon Dioxide Cancelled Anion Gap Cancelled BUN Cancelled Creatinine Cancelled Creat Clearance w eGFR Cancelled Random Glucose Cancelled Lactic Acid Calcium Cancelled Total Bilirubin Cancelled AST Cancelled ALT Cancelled Alkaline Phosphatase Cancelled Creatine Kinase Troponin I Total Protein Cancelled Albumin Cancelled Serum , Qual Urine Color Urine Appearance Urine pH Ur Specific [place] Urine Protein Urine Glucose (UA) Urine Ketones Urine Blood Urine Nitrite Urine Bilirubin Urine Urobilinogen Ur Leukocyte Esterase Urine WBC (Auto) Urine RBC (Auto) Ur Epithelial Cells Urine Mucus Urine HCG, Qual 12/29/17 18:07 RBC 4.86 MCV 87.1 MCHC 33.0 RDW 16.9 H MPV 8.6 Neutrophils % 41.5 L Lymphocytes % 45.9 H D Monocytes % 10.9 H Eosinophils % 0.1 D Basophils % 1.6 D - Medications Given in the ED: ED Medications Discontinued Medications Generic Name Dose Route Start Last Admin Trade Name Freq PRN Reason Stop Dose Admin Lactulose 20 gm 12/29/17 17:20 12/29/17 18:00 Cephulac (Oral Use) PO 12/29/17 17:21 20 gm ONCE ONE Administration <Mary Osorio - Last Filed: 12/29/17 23:47> Medical Decision Making - Medical Decision Making 12/29/17 21:16 Received pt on 7pm signout from Dr. Pulido. Labs reviewed, significant results as follows: Laboratory Tests 12/29/17 12/29/17 12/29/17 11:45 18:07 19:50 Lactic Acid 1.8 AST 100 H ALT 107 H Alkaline Phosphatase 173 H Ammonia 182.69 H Troponin I 0.12 H CXR clear HCT neg for acute intracranial pathology EKG: Pt w/ persistent AMS in ER after lactulose administration continuing to require restraints to ensure patient safety. Concern for NSTEMI in addition to acute hepatic encephalopathy. Plan: cardiac rehabilitation specialist trend Tn, LFTs, NH3 repeat doses lactulose AC for NSTEMI admit hospitalist service on telemetry. 12/29/17 23:46 [place] POSITIVE, brown stool. will hold lovenox/heparin pending troponin trend. Then will need weight risk/ benefit of anticoagulation in this patient. <Mary Osorio - Last Filed: 12/29/17 23:47> *DC/Admit/Observation/Transfer - Attestations Scribe Attestion: 12/29/17 17:53 Documentation prepared by Anil Goodrich, acting as medical pathology teacher for Janeen Pulido MD. <Anil Goodrich - Last Filed: 12/29/17 17:51> <Janeen Pulido - Last Filed: 12/29/17 18:46> <Diego Hu - Last Filed: 12/29/17 21:59> - Discharge Dispostion Admit: Yes <Mary Osorio - Last Filed: 12/29/17 23:47> Diagnosis at time of Disposition: Hepatic encephalopathy, NSTEMI (non-ST elevated myocardial infarction), Altered mental status, unspecified
[2017-12-29] MEDS ORDERED: LACTULOSE 20 GM/30 ML UDC (FOR ORAL USE ONLY) PO ONE ×2 (17:20→21:14)
[2017-12-29] MEDS ORDERED: LACTULOSE 20 GM/30 ML UDC (FOR ORAL USE ONLY) ONE (17:26)
[2017-12-29 18:30] LABS: BASO % 1.6 % (0-2.0); EOS % 0.1 % (0-4.5); HEMATOCRIT 42.3 % (32.4-45.2); LYMPH % 45.9 % (8-40); MCH 28.8 pg (25.7-33.7); MEAN CELL VOLUME 87.1 fl (80-96); MEAN PLT VOLUME 8.6 fl (7.5-11.1); MONO % 10.9 % (3.8-10.2); NEUT % 41.5 % (42.8-82.8); PLATELET COUNT 193 K/MM3 (134-434); RBC 4.86 M/mm3 (3.60-5.2); RDW 16.9 % (11.6-15.6); WHITE BLOOD COUNT 4.3 K/mm3 (4.0-10.0)
[2017-12-29 18:36] LABS: INR 1.06 (0.82-1.09)
[2017-12-29 18:47] LABS: URINE APPEARANCE CLEAR; URINE BILIRUBIN NEGATIVE (NEGATIVE); URINE BLOOD NEGATIVE (NEGATIVE); URINE COLOR YELLOW; URINE GLUCOSE (UA) 3+ (NEGATIVE); URINE KETONE NEGATIVE (NEGATIVE); URINE LEUK ESTERASE NEGATIVE (NEGATIVE); URINE NITRITE NEGATIVE (NEGATIVE)
[2017-12-29 18:48] LABS: URINE PROTEIN 1+ (NEGATIVE)
[2017-12-29 18:58] LABS: EPI CELLS RARE /HPF (FEW); URINE MUCUS RARE
[2017-12-29 20:38] LABS: ALBUMIN 2.5 g/dl (3.4-5.0); ANION GAP 10 (8-16); BILIRUBIN,TOTAL 0.4 mg/dL (0.2-1.0); BLOOD UREA NITROGEN 17 mg/dL (7-18); CALCIUM 8.6 mg/dL (8.5-10.1); CHLORIDE 110 mmol/L (98-107); CO2 21 mmol/L (21-32); CREATININE 0.5 mg/dL (0.55-1.02); GLUCOSE,RANDOM 215 mg/dL (74-106); SGPT/ALT 107 U/L (12-78); SODIUM 141 mmol/L (136-145); TOT PROT 7.7 g/dl (6.4-8.2)
[2017-12-29 20:41] LABS: ALK PHOS 173 U/L (45-117)
[2017-12-29 20:43] LABS: POTASSIUM 4.4 mmol/L (3.5-5.1)
[2017-12-29 20:44] LABS: SGOT/AST 100 U/L (15-37)
--- NOTE | 2017-12-29 23:27 | HP ---
Admitting History and Physical - Primary Care Physician PCP: Pedrito Hogan - Admission History of Present Illness: 47 year old female, with a significant past medical history of hypertension, depressive disorder, diabetes mellitus, chronic liver disease and cirrhosis, cocaine dependence, appendicitis, who presents to the emergency department via EMS from [facility] with increase in ammonia and altered mental status. Patient is not providing additional information. - Past Medical History Cardiovascular: Yes: HTN, Other (DM ) Gastrointestinal: Yes: GERD Hepatobiliary: Yes: Cirrhosis, Other (REFRACTORY ASCITES AND CIRRHOSIS, HEP B/ C NEG PER PATIENT) ...LMP: 09/30/17 Psych: Yes: Addictions (alcohol abuse), Other (Substance abuse) Endocrine: Yes: Diabetes Mellitus - Past Surgical History Past Surgical History: Yes: Cholecystectomy, Tubal Ligation - Smoking History Smoking history: Never smoked Have you smoked in the past 12 months: No Aproximately how many cigarettes per day: 0 - Alcohol/Substance Use Hx Alcohol Use: Yes (VODKA) History of Substance Use: reports: Cocaine, Prescription (history of poly substance abuse an has a prescription bottle of pills that are not hers) - Social History ADL: Independent Occupation: disabled History of Recent Travel: No Home Medications - Allergies Allergies/Adverse Reactions: Allergies Allergy/AdvReac Type Severity Reaction Status Date / Time fish derived Allergy Severe Swelling Verified 12/29/17 17:11 shellfish derived Allergy Severe Swelling Verified 12/29/17 17:11 No Known Drug Allergies Allergy Verified 12/29/17 17:11 SEAFOOD Allergy Severe Swelling Uncoded 12/29/17 17:11 - Home Medications Home Medications: Ambulatory Orders Lisinopril [Prinivil] 20 mg PO DAILY #30 tablet 11/27/16 Ranitidine [Zantac -] 150 mg PO BID #60 tablet 11/27/16 Gabapentin [Neurontin -] 400 mg PO TID #90 cap 04/09/17 Pregabalin [Lyrica] 150 mg PO HS 04/30/17 Insulin Glargine,Hum.rec.anlog [Lantus Solostar PEN -] 40 units SQ HS 10/20/17 Insulin Lispro [Humalog] 0 unit SQ TIDCM 10/20/17 Naproxen Sodium 275 mg PO BID #6 tablet 10/27/17 Mirtazapine [Remeron -] 30 mg PO HS #30 tablet 12/22/17 Trazodone HCl [Desyrel -] 150 mg PO HS #30 tablet 12/22/17 Family Disease History - Family Disease History Family Disease History: Diabetes: Grandparent (alcohol), Father (alive: 68: HTN) , Mother (alive: 67), Other: Grandparent, Father, Mother Physical Examination Vital Signs: Vital Signs Temperature 98.5 F 12/29/17 17:00 Pulse Rate 83 12/29/17 20:49 Respiratory Rate 18 12/29/17 20:49 Blood Pressure 126/71 12/29/17 20:49 O2 Sat by Pulse Oximetry (%) 98 12/29/17 20:49 Constitutional: Yes: Calm HENT: Yes: Atraumatic Neck: Yes: Supple Cardiovascular: Yes: Regular Rate and Rhythm Respiratory: Yes: CTA Bilaterally Gastrointestinal: Yes: Normal Bowel Sounds Extremities: Yes: WNL Edema: LLE: Trace, RLE: Trace Peripheral Pulses WNL: Yes 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: Yes: Other (drowsy) Labs: CBC, BMP 12/29/17 18:07 12/29/17 19:50 Problem List - Problems (1) Altered mental status, unspecified Assessment/Plan: monitor in icu npo, ivf Code(s): R41.82 - ALTERED MENTAL STATUS, UNSPECIFIED (2) Hepatic encephalopathy Assessment/Plan: monitor ammonia level on lactulose gi consult Code(s): K72.90 - HEPATIC FAILURE, UNSPECIFIED WITHOUT COMA (3) NSTEMI (non-ST elevated myocardial infarction) Assessment/Plan: follow up cardiac enzymes cardiology consult Code(s): I21.4 - NON-ST ELEVATION (NSTEMI) MYOCARDIAL INFARCTION (4) Insulin dependent diabetes mellitus Assessment/Plan: bgms hold insulin as pt is npo Code(s): E11.9 - TYPE 2 DIABETES MELLITUS WITHOUT COMPLICATIONS; Z79.4 - PENITENTIARY (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 Assessment/Plan Laboratory Tests 12/29/17 12/29/17 12/29/17 18:07 18:07 18:07 WBC 4.3 RBC 4.86 Hgb 14.0 Hct 42.3 MCV 87.1 MCH 28.8 MCHC 33.0 RDW 16.9 H Plt Count 193 MPV 8.6 Neutrophils % 41.5 L Lymphocytes % 45.9 H D Monocytes % 10.9 H Eosinophils % 0.1 D Basophils % 1.6 D PT with INR 12.00 H INR 1.06 Sodium Cancelled Potassium Cancelled Chloride Cancelled Carbon Dioxide Cancelled Anion Gap Cancelled BUN Cancelled Creatinine Cancelled Creat Clearance w eGFR Cancelled Random Glucose Cancelled Lactic Acid Calcium Cancelled Total Bilirubin Cancelled AST Cancelled ALT Cancelled Alkaline Phosphatase Cancelled Creatine Kinase Troponin I Total Protein Cancelled Albumin Cancelled Serum , Qual Urine Color Urine Appearance Urine pH Ur Specific [place] Urine Protein Urine Glucose (UA) Urine Ketones Urine Blood Urine Nitrite Urine Bilirubin Urine Urobilinogen Ur Leukocyte Esterase Urine WBC (Auto) Urine RBC (Auto) Ur Epithelial Cells Urine Mucus Urine HCG, Qual Stool Occult Blood 12/29/17 12/29/17 12/29/17 18:07 18:27 18:37 WBC RBC Hgb Hct MCV MCH MCHC RDW Plt Count MPV Neutrophils % Lymphocytes % Monocytes % Eosinophils % Basophils % PT with INR INR Sodium Potassium Chloride Carbon Dioxide Anion Gap BUN Creatinine Creat Clearance w eGFR Random Glucose Lactic Acid 1.8 Calcium Total Bilirubin AST ALT Alkaline Phosphatase Creatine Kinase Troponin I Total Protein Albumin Serum , Qual Cancelled Urine Color Yellow Urine Appearance Clear Urine pH 7.0 Ur Specific [place] 1.018 Urine Protein 1+ H Urine Glucose (UA) 3+ H Urine Ketones Negative Urine Blood Negative Urine Nitrite Negative Urine Bilirubin Negative Urine Urobilinogen 2.0 H Ur Leukocyte Esterase Negative Urine WBC (Auto) 1 Urine RBC (Auto) 2 Ur Epithelial Cells Rare Urine Mucus Rare Urine HCG, Qual Stool Occult Blood 12/29/17 12/29/17 12/29/17 19:05 19:50 19:50 WBC RBC Hgb Hct MCV MCH MCHC RDW Plt Count MPV Neutrophils % Lymphocytes % Monocytes % Eosinophils % Basophils % PT with INR INR Sodium 141 Potassium 4.4 Chloride 110 H Carbon Dioxide 21 Anion Gap 10 BUN 17 Creatinine 0.5 L Creat Clearance w eGFR > 60 Random Glucose 215 H Lactic Acid Calcium 8.6 Total Bilirubin 0.4 D AST 100 H ALT 107 H Alkaline Phosphatase 173 H Creatine Kinase 117 Troponin I 0.12 H Total Protein 7.7 Albumin 2.5 L Serum , Qual Negative Urine Color Urine Appearance Urine pH Ur Specific [place] Urine Protein Urine Glucose (UA) Urine Ketones Urine Blood Urine Nitrite Urine Bilirubin Urine Urobilinogen Ur Leukocyte Esterase Urine WBC (Auto) Urine RBC (Auto) Ur Epithelial Cells Urine Mucus Urine HCG, Qual Negative Stool Occult Blood 12/29/17 22:52 WBC RBC Hgb Hct MCV MCH MCHC RDW Plt Count MPV Neutrophils % Lymphocytes % Monocytes % Eosinophils % Basophils % PT with INR INR Sodium Potassium Chloride Carbon Dioxide Anion Gap BUN Creatinine Creat Clearance w eGFR Random Glucose Lactic Acid Calcium Total Bilirubin AST ALT Alkaline Phosphatase Creatine Kinase Troponin I Total Protein Albumin Serum , Qual Urine Color Urine Appearance Urine pH Ur Specific [place] Urine Protein Urine Glucose (UA) Urine Ketones Urine Blood Urine Nitrite Urine Bilirubin Urine Urobilinogen Ur Leukocyte Esterase Urine WBC (Auto) Urine RBC (Auto) Ur Epithelial Cells Urine Mucus Urine HCG, Qual Stool Occult Blood Positive Active Medications Generic Name Dose Route Start Last Admin Trade Name Freq PRN Reason Stop Dose Admin Aspirin 81 mg 12/30/17 10:00 12/30/17 10:11 Ecotrin - PO 81 mg DAILY SIRIA Administration Sodium Chloride 1,000 mls @ 75 mls/hr 12/29/17 23:45 12/29/17 23:52 Normal Saline - IV 75 mls/hr ASDIR SIRIA Administration Lactulose 20 gm 12/29/17 23:37 Cephulac (Oral Use) PO TID PRN CONSTIPATION Lisinopril 10 mg 12/30/17 10:00 12/30/17 10:11 Prinivil PO 10 mg DAILY SIRIA Administration Metoprolol Succinate 25 mg 12/30/17 10:00 12/30/17 10:11 Toprol Xl - PO 25 mg DAILY SIRIA Administration cc time 60 min
[2017-12-29] MEDS: SODIUM CHLORIDE 1,000 ML IV SCH (23:52)
[2017-12-30 01:06] VITALS: BMI 23.6
[2017-12-30 06:20] LABS: BASO % 0.1 % (0-2.0); HEMOGLOBIN 12.9 GM/dL (10.7-15.3); LYMPH % 52.5 % (8-40); MCHC 33.1 g/dl (32.0-36.0); MEAN CELL VOLUME 87.5 fl (80-96); MEAN PLT VOLUME 8.6 fl (7.5-11.1); MONO % 14.1 % (3.8-10.2); NEUT % 33.3 % (42.8-82.8); PLATELET COUNT 195 K/MM3 (134-434); RBC 4.46 M/mm3 (3.60-5.2); WHITE BLOOD COUNT 3.7 K/mm3 (4.0-10.0)
[2017-12-30 06:33] LABS: ADD RBC MORPHOLOGY YES
[2017-12-30 06:51] LABS: ALBUMIN 2.2 g/dl (3.4-5.0); ANION GAP 10 (8-16); BILIRUBIN,TOTAL 0.5 mg/dL (0.2-1.0); BLOOD UREA NITROGEN 18 mg/dL (7-18); CALCIUM 8.7 mg/dL (8.5-10.1); CHLORIDE 110 mmol/L (98-107); CO2 21 mmol/L (21-32); CREATININE 0.6 mg/dL (0.55-1.02); POTASSIUM 3.9 mmol/L (3.5-5.1); SGOT/AST 96 U/L (15-37); SGPT/ALT 104 U/L (12-78); SODIUM 141 mmol/L (136-145)
[2017-12-30 06:53] LABS: ALK PHOS 143 U/L (45-117)
[2017-12-30 07:00] LABS: GLUCOSE,RANDOM 309 mg/dL (74-106)
--- NOTE | 2017-12-30 07:57 | PN ---
Progress Note (short form) - Note Progress Note: Chief Complaint: Events noted, notes reviewed, confused and disoriented to time and place, no distress History of Present Illness: Seen and examined on telemetry. Full consult dictated - Current Medication List Current Medications: Current Medications Sodium Chloride (Normal Saline -) 1,000 mls @ 75 mls/hr IV ASDIR SIRIA Last Admin: 12/29/17 23:52 Dose: 75 mls/hr Lactulose (Cephulac (Oral Use)) 20 gm PO TID PRN PRN Reason: CONSTIPATION Review of Systems Unable to Obtain - Objective Vital Signs: Last Vital Signs Temp Pulse Resp BP Pulse Ox 98.2 F 90 15 132/80 98 12/30/17 06:46 12/30/17 06:46 12/30/17 06:46 12/30/17 06:46 12/30/17 00:35 Intake & Output 12/27/17 12/28/17 12/29/17 12/30/17 23:59 23:59 23:59 23:59 Intake Total 525 Balance 525 Weight 160 lb 146 lb 8 oz Neck: Supple Negative JVD Cardiovascular: S1 S2 Regular Rate Rhythm No Murmurs Respiratory: Clear to A&P Bilaterally Gastrointestinal: Soft Benign Normal Bowel Sounds Extremities: Negative Edema Labs: Troponin, BNP 12/29/17 12/30/17 19:50 01:55 Troponin I 0.12 H 0.08 H CBC, BMP 12/30/17 05:30 12/30/17 05:30 Assessment/Plan ASSESSMENT: 1. CAD with evidence of demand ischemic injury, with no clinical angina pectoris 2. Diastolic LV dysfunction with class 0 NYHA classification LV failure 3. HTN 4. DM 5. Chronic liver disease/cirrhosis 6. Depressive disorder 7. Substance abuse/alcohol and cocaine dependence PLAN: 1. Add B-Blockers Lopressor 2. Add ASA if not contraindicated 3. Continue ACEI 4. Lipid profile and initiate statin therapy 5. Echocardiography to evaluate LV size and function 6. Plan for conservative medical management considering patient's history of poor compliance with therapy administration and F/U Patient can be transferred to floor care from the cardiovascular point of view Elda pedraza MD
--- NOTE | 2017-12-30 09:17 | CONS ---
DATE OF CONSULTATION: 12/30/2017 CONSULTATION REQUESTED BY: Pedrito Hogan MD CHIEF COMPLAINT: Cardiovascular evaluation of elevated troponin I. HISTORY: A 47-year-old female with known history of substance and alcohol abuse who was transferred from [facility] to [facility] for evaluation of altered mental status, elevated ammonia level. She has known history of hypertensive cardiovascular disease, diabetes mellitus, questionable hypercholesterolemia, chronic liver disease, cirrhosis, most recent hospitalization with acute appendicitis post appendectomy, with no prior history of coronary artery disease, angina pectoris. Upon evaluation in the emergency room, patient was noted to have elevated troponin I level. Patient currently is confused and disoriented to time and place. She does not appear to be in any distress. Patient denies any medical history. She denies any chest discomfort. Patient denies any dyspnea. No additional history is obtainable. PAST MEDICAL HISTORY: Hypertensive cardiovascular disease, diabetes mellitus, chronic liver disease, cirrhosis, gastroesophageal reflux disease, osteomyelitis of the right foot. PAST SURGICAL HISTORY: Appendectomy, tubal ligation. SOCIAL HISTORY: Substance abuse including alcohol and cocaine. FAMILY HISTORY: No family history of coronary artery disease. ALLERGIES: No known medical allergies but allergic to FISH. MEDICATIONS: Medical therapy currently includes Neurontin 400 mg 3 times a day, insulin, Prinivil 20 mg once a day, Remeron 30 mg once a day, naproxen 275 mg twice a day, Lyrica 150 mg once a day, Desyrel 150 mg once a day, ranitidine 150 mg twice a day. REVIEW OF SYSTEMS: Not obtainable related to patient confusion and disorientation. PHYSICAL EXAMINATION: Vital Signs: Blood pressure 132/80 mmHg. Pulse rate is 90 beats per minute, temperature 98.2. Head and Neck: Pupils equal, reactive to light, accommodation. Extraocular muscles are intact. Anicteric sclerae. Negative JVD. No bruit appreciated. Chest: Clear to auscultation and percussion. Cardiovascular: S1, S2 regular, no murmurs, clicks, or gallops. Abdomen: Soft, benign, normoactive bowel sounds. Extremities: Negative edema. Intact distal pulses, no calf tenderness. DIAGNOSTIC DATA: Electrocardiogram reveals sinus rhythm, increased voltage, poor R wave progression, nonspecific T-wave abnormality. CBC with a white cell count 3.7, hemoglobin 12.9, platelet count 195. Basic metabolic profile reveals sodium 141, potassium 3.9, BUN 18, creatinine 0.6, glucose 309. ASSESSMENT: 1. Coronary artery disease with evidence of demand ischemic injury with no clinical angina pectoris. 2. Probable diastolic left ventricular dysfunction with class 0 [place] [employer] classification left ventricular failure. 3. Hypertensive cardiovascular disease. 4. Diabetes mellitus. 5. Chronic liver disease/cirrhosis. 6. History of depression. 7. Substance abuse including alcohol and cocaine. RECOMMENDATIONS: 1. Addition of beta blockers. 2. Addition of aspirin unless it is absolutely contraindicated. 3. Continuation of DIAMOND inhibitors. 4. Lipid profile and initiation of statin therapy accordingly. 5. Echocardiography for evaluation of left ventricular size and function. 6. Plan for conservative medical management considering patient's history of poor compliance with therapy administration and medical followup. Patient can be transferred to floor care. Thank you for the kind referral. YVAN MILLER M.D. [id number]
[2017-12-30] MEDS ORDERED: HEPARIN NA (PORCINE) 5,000 UNITS/ML 1ML VIAL SQ SCH (10:00)
[2017-12-30] MEDS: LISINOPRIL 10 MG TABLET (FP) PO SCH (10:11)
[2017-12-30] MEDS: metoPROLOL SUCCINATE 25 MG TAB.SR.24H (FP) PO SCH (10:11)
[2017-12-30] MEDS: ASPIRIN COATED 81 MG TABLET.EC PO SCH (10:11)
[2017-12-30] MEDS ORDERED: INSULIN (NOVOLOG) ASPART 100 UNITS/ML 10ML VIAL ONE (11:23)
[2017-12-30] MEDS: INSULIN SLIDING SCALE (NOVOLOG) 1 VIAL SQ SCH ×3 (12:00→23:31)
--- NOTE | 2017-12-30 13:18 | PN ---
Progress Note, Physician History of Present Illness: feeling better - Current Medication List Current Medications: Active Medications Aspirin (Ecotrin -) 81 mg PO DAILY [facility] Last Admin: 12/30/17 10:11 Dose: 81 mg Sodium Chloride (Normal Saline -) 1,000 mls @ 75 mls/hr IV ASDIR [facility] Last Admin: 12/29/17 23:52 Dose: 75 mls/hr Insulin Aspart (Novolog Vial Sliding Scale -) 1 vial SQ ACHS [facility] PRN Reason: Protocol Lactulose (Cephulac (Oral Use)) 20 gm PO TID PRN PRN Reason: CONSTIPATION Lisinopril (Prinivil) 10 mg PO DAILY [facility] Last Admin: 12/30/17 10:11 Dose: 10 mg Metoprolol Succinate (Toprol Xl -) 25 mg PO DAILY [facility] Last Admin: 12/30/17 10:11 Dose: 25 mg Mirtazapine (Remeron -) 30 mg PO HS [facility] Ranitidine HCl (Zantac -) 150 mg PO BID [facility] Trazodone HCl (Desyrel -) 150 mg PO HS [facility] - Objective Vital Signs: Vital Signs Temperature 98.4 F 12/30/17 10:00 Pulse Rate 87 12/30/17 10:00 Respiratory Rate 18 12/30/17 10:00 Blood Pressure 142/80 12/30/17 10:00 O2 Sat by Pulse Oximetry (%) 95 12/30/17 10:00 Constitutional: Yes: No Distress HENT: Yes: Atraumatic Neck: Yes: Supple Cardiovascular: Yes: Regular Rate and Rhythm Respiratory: Yes: CTA Bilaterally Gastrointestinal: Yes: Normal Bowel Sounds Extremities: Yes: WNL Edema: No 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: Yes: Alert, Oriented Labs: CBC, BMP 12/30/17 05:30 12/30/17 05:30 INR, PTT INR 1.06 (0.82-1.09) 12/29/17 18:07 Problem List - Problems (1) Altered mental status, unspecified Assessment/Plan: pt alert and oriented Code(s): R41.82 - ALTERED MENTAL STATUS, UNSPECIFIED (2) Hepatic encephalopathy Assessment/Plan: monitor ammonia level on lactulose gi consult Code(s): K72.90 - HEPATIC FAILURE, UNSPECIFIED WITHOUT COMA (3) NSTEMI (non-ST elevated myocardial infarction) Assessment/Plan: follow up cardiac enzymes cardiology consult Code(s): I21.4 - NON-ST ELEVATION (NSTEMI) MYOCARDIAL INFARCTION (4) Insulin dependent diabetes mellitus Assessment/Plan: bgms insulin sliding scale Code(s): E11.9 - TYPE 2 DIABETES MELLITUS WITHOUT COMPLICATIONS; Z79.4 - [employer] (CURRENT) USE OF INSULIN Assessment/Plan cc time 35 min in icu
--- NOTE | 2017-12-30 14:04 | EKG ---
Test Reason : Blood Pressure : / mmHG Vent. Rate : 088 BPM Atrial Rate : 088 BPM P-R Int : 160 ms QRS Dur : 080 ms QT Int : 396 ms P-R-T Axes : 054 021 012 degrees QTc Int : 479 ms NORMAL SINUS RHYTHM POSSIBLE LEFT ATRIAL ENLARGEMENT LEFT VENTRICULAR HYPERTROPHY ABNORMAL ECG WHEN COMPARED WITH ECG OF 22-DEC-2017 14:49, NO SIGNIFICANT CHANGE WAS FOUND Confirmed by MD SHAREE, SHANNON ([id number]) on 12/30/2017 2:04:07 PM Referred By: Confirmed By:SHANNON TOLLIVER MD
--- NOTE | 2017-12-30 14:05 | EKG ---
Test Reason : Blood Pressure : / mmHG Vent. Rate : 082 BPM Atrial Rate : 082 BPM P-R Int : 140 ms QRS Dur : 078 ms QT Int : 416 ms P-R-T Axes : 045 016 010 degrees QTc Int : 486 ms NORMAL SINUS RHYTHM POSSIBLE LEFT ATRIAL ENLARGEMENT ANTERIOR INFARCT (CITED ON OR BEFORE 29-DEC-2017) ABNORMAL ECG WHEN COMPARED WITH ECG OF 29-DEC-2017 17:11, NONSPECIFIC T WAVE ABNORMALITY NOW EVIDENT IN LATERAL LEADS Confirmed by MD SHAREE, SHANNON ([id number]) on 12/30/2017 2:05:31 PM Referred By: Confirmed By:SHANNON TOLLIVER MD
--- NOTE | 2017-12-30 14:11 | CON.GI ---
Consult - History of Present Illness History of Present Illness: Chart reviewed. A 47 year old female, with a significant past medical history of hypertension, depressive disorder, diabetes mellitus, alcohol-related chronic liver disease and cirrhosis, cocaine dependence, appendicitis, who presents to the emergency department via EMS from [facility] with increase in ammonia and altered mental status. Was also found to have cardiac demand ischemia. At the time of this encounter, the patient is awake, disoriented to year (1917) and season (Summer). Not in distress, or discomfort. Tells me she had paracentesis and EGD 6 m ago in [facility]. Cannot recall any other relevant history. Was not on non-selective bb, diuretics, lactulose, rifaximine at home. Denies nausea, vomiting, or vomiting blood, epigastric pain, fever, blood in stool. ( Reliability of the history is likely very low) - History Source History Provided By: Patient, Medical Record Limitations to Obtaining History: Clinical Condition - Past Medical History Cardio/Vascular: Yes: HTN, Other (DM ) Gastrointestinal: Yes: GERD Hepatobiliary: Yes: Cirrhosis, Other (REFRACTORY ASCITES AND CIRRHOSIS, HEP B/ C NEG PER PATIENT) ...LMP: 09/30/17 ...: (unknown - neuro altered) Psych: Yes: Addictions (alcohol abuse), Other (Substance abuse) Endocrine: Yes: Diabetes Mellitus Additional Medical History: peripheral neuropathy - Past Surgical History Past Surgical History: Yes: Cholecystectomy, Tubal Ligation - Alcohol/Substance Use Hx Alcohol Use: Yes (VODKA) History of Substance Use: reports: Cocaine, Prescription (history of poly substance abuse an has a prescription bottle of pills that are not hers) - Smoking History Smoking history: Never smoked Have you smoked in the past 12 months: No Aproximately how many cigarettes per day: 0 - Social History Usual Living Arrangement: Alone ADL: Independent Occupation: disabled History of Recent Travel: No Home Medications - Allergies Allergies/Adverse Reactions: Allergies Allergy/AdvReac Type Severity Reaction Status Date / Time fish derived Allergy Severe Swelling Verified 12/29/17 17:11 shellfish derived Allergy Severe Swelling Verified 12/29/17 17:11 No Known Drug Allergies Allergy Verified 12/29/17 17:11 SEAFOOD Allergy Severe Swelling Uncoded 12/29/17 17:11 - Home Medications Home Medications: Ambulatory Orders Lisinopril [Prinivil] 20 mg PO DAILY #30 tablet 11/27/16 Ranitidine [Zantac -] 150 mg PO BID #60 tablet 11/27/16 Gabapentin [Neurontin -] 400 mg PO TID #90 cap 04/09/17 Pregabalin [Lyrica] 150 mg PO HS 04/30/17 Insulin Glargine,Hum.rec.anlog [Lantus Solostar PEN -] 40 units SQ HS 10/20/17 Insulin Lispro [Humalog] 0 unit SQ TIDCM 10/20/17 Naproxen Sodium 275 mg PO BID #6 tablet 10/27/17 Mirtazapine [Remeron -] 30 mg PO HS #30 tablet 12/22/17 Trazodone HCl [Desyrel -] 150 mg PO HS #30 tablet 12/22/17 Family Disease History - Family Disease History Family Disease History: Diabetes: Grandparent (alcohol), Father (alive: 68: HTN) , Mother (alive: 67), Other: Grandparent, Father, Mother Physical Exam-GI Vital Signs: Vital Signs Temperature 98.4 F 12/30/17 10:00 Pulse Rate 87 12/30/17 10:00 Respiratory Rate 18 12/30/17 10:00 Blood Pressure 142/80 12/30/17 10:00 O2 Sat by Pulse Oximetry (%) 95 12/30/17 10:00 Constitutional: Yes: No Distress, Calm. No: Cachectic Eyes: Yes: Conjunctiva Clear HENT: Yes: Atraumatic Neck: Yes: Supple Cardiovascular: Yes: Regular Rate and Rhythm Respiratory: Yes: Regular Gastrointestinal Inspection: No: Ascites, Distention ...Palpate: Yes: Soft. No: Firm/Rigid, Guarding, Mass, Tenderness, Epigastium ...Percussion: No: Fluid Wave Edema: No Integumentary: No: Jaundice 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: Yes: Confusion, Lethargy. No: Asterixis, Tremors Labs: CBC, BMP 12/30/17 05:30 12/30/17 05:30 INR, PTT INR 1.06 (0.82-1.09) 12/29/17 18:07 Laboratory Tests 12/29/17 12/29/17 12/29/17 18:07 18:07 18:07 WBC 4.3 RBC 4.86 Hgb 14.0 Hct 42.3 MCV 87.1 MCH 28.8 MCHC 33.0 RDW 16.9 H Plt Count 193 MPV 8.6 Neutrophils % 41.5 L Lymphocytes % 45.9 H D Monocytes % 10.9 H Eosinophils % 0.1 D Basophils % 1.6 D PT with INR 12.00 H INR 1.06 Sodium Cancelled Potassium Cancelled Chloride Cancelled Carbon Dioxide Cancelled Anion Gap Cancelled BUN Cancelled Creatinine Cancelled Creat Clearance w eGFR Cancelled POC Glucometer Random Glucose Cancelled Lactic Acid Calcium Cancelled Total Bilirubin Cancelled AST Cancelled ALT Cancelled Alkaline Phosphatase Cancelled Ammonia Creatine Kinase Troponin I Total Protein Cancelled Albumin Cancelled Serum , Qual Urine Color Urine Appearance Urine pH Ur Specific [place] Urine Protein Urine Glucose (UA) Urine Ketones Urine Blood Urine Nitrite Urine Bilirubin Urine Urobilinogen Ur Leukocyte Esterase Urine WBC (Auto) Urine RBC (Auto) Ur Epithelial Cells Urine Mucus Urine HCG, Qual Stool Occult Blood 12/29/17 12/29/17 12/29/17 18:07 18:27 18:37 WBC RBC Hgb Hct MCV MCH MCHC RDW Plt Count MPV Neutrophils % Lymphocytes % Monocytes % Eosinophils % Basophils % PT with INR INR Sodium Potassium Chloride Carbon Dioxide Anion Gap BUN Creatinine Creat Clearance w eGFR POC Glucometer Random Glucose Lactic Acid 1.8 Calcium Total Bilirubin AST ALT Alkaline Phosphatase Ammonia Creatine Kinase Troponin I Total Protein Albumin Serum , Qual Cancelled Urine Color Yellow Urine Appearance Clear Urine pH 7.0 Ur Specific [place] 1.018 Urine Protein 1+ H Urine Glucose (UA) 3+ H Urine Ketones Negative Urine Blood Negative Urine Nitrite Negative Urine Bilirubin Negative Urine Urobilinogen 2.0 H Ur Leukocyte Esterase Negative Urine WBC (Auto) 1 Urine RBC (Auto) 2 Ur Epithelial Cells Rare Urine Mucus Rare Urine HCG, Qual Stool Occult Blood 12/29/17 12/29/17 12/29/17 19:05 19:50 19:50 WBC RBC Hgb Hct MCV MCH MCHC RDW Plt Count MPV Neutrophils % Lymphocytes % Monocytes % Eosinophils % Basophils % PT with INR INR Sodium 141 Potassium 4.4 Chloride 110 H Carbon Dioxide 21 Anion Gap 10 BUN 17 Creatinine 0.5 L Creat Clearance w eGFR > 60 POC Glucometer Random Glucose 215 H Lactic Acid Calcium 8.6 Total Bilirubin 0.4 D AST 100 H ALT 107 H Alkaline Phosphatase 173 H Ammonia Creatine Kinase 117 Troponin I 0.12 H Total Protein 7.7 Albumin 2.5 L Serum , Qual Negative Urine Color Urine Appearance Urine pH Ur Specific [place] Urine Protein Urine Glucose (UA) Urine Ketones Urine Blood Urine Nitrite Urine Bilirubin Urine Urobilinogen Ur Leukocyte Esterase Urine WBC (Auto) Urine RBC (Auto) Ur Epithelial Cells Urine Mucus Urine HCG, Qual Negative Stool Occult Blood 12/29/17 12/30/17 12/30/17 22:52 01:55 05:30 WBC 3.7 L RBC 4.46 Hgb 12.9 Hct 39.0 MCV 87.5 MCH 29.0 MCHC 33.1 RDW 17.0 H Plt Count 195 MPV 8.6 Neutrophils % 33.3 L Lymphocytes % 52.5 H Monocytes % 14.1 H Eosinophils % 0.0 D Basophils % 0.1 PT with INR INR Sodium Potassium Chloride Carbon Dioxide Anion Gap BUN Creatinine Creat Clearance w eGFR POC Glucometer Random Glucose Lactic Acid Calcium Total Bilirubin AST ALT Alkaline Phosphatase Ammonia Creatine Kinase 97 Troponin I 0.08 H Total Protein Albumin Serum , Qual Urine Color Urine Appearance Urine pH Ur Specific [place] Urine Protein Urine Glucose (UA) Urine Ketones Urine Blood Urine Nitrite Urine Bilirubin Urine Urobilinogen Ur Leukocyte Esterase Urine WBC (Auto) Urine RBC (Auto) Ur Epithelial Cells Urine Mucus Urine HCG, Qual Stool Occult Blood Positive 12/30/17 12/30/17 12/30/17 05:30 05:30 05:43 WBC RBC Hgb Hct MCV MCH MCHC RDW Plt Count MPV Neutrophils % Lymphocytes % Monocytes % Eosinophils % Basophils % PT with INR INR Sodium 141 Potassium 3.9 Chloride 110 H Carbon Dioxide 21 Anion Gap 10 BUN 18 Creatinine 0.6 Creat Clearance w eGFR > 60 POC Glucometer [phone] Random Glucose 309 H* Lactic Acid Calcium 8.7 Total Bilirubin 0.5 D AST 96 H ALT 104 H Alkaline Phosphatase 143 H Ammonia 102.06 H Creatine Kinase Troponin I Total Protein 7.0 Albumin 2.2 L Serum , Qual Urine Color Urine Appearance Urine pH Ur Specific [place] Urine Protein Urine Glucose (UA) Urine Ketones Urine Blood Urine Nitrite Urine Bilirubin Urine Urobilinogen Ur Leukocyte Esterase Urine WBC (Auto) Urine RBC (Auto) Ur Epithelial Cells Urine Mucus Urine HCG, Qual Stool Occult Blood Abnormal Lab Results 12/29/17 12/29/17 12/29/17 18:07 18:07 18:27 WBC RDW 16.9 H Neutrophils % 41.5 L Lymphocytes % 45.9 H D Monocytes % 10.9 H PT with INR 12.00 H Chloride Creatinine Random Glucose AST ALT Alkaline Phosphatase Ammonia Troponin I Albumin Urine Protein 1+ H Urine Glucose (UA) 3+ H Urine Urobilinogen 2.0 H 12/29/17 12/30/17 12/30/17 19:50 01:55 05:30 WBC 3.7 L RDW 17.0 H Neutrophils % 33.3 L Lymphocytes % 52.5 H Monocytes % 14.1 H PT with INR Chloride 110 H Creatinine 0.5 L Random Glucose 215 H AST 100 H ALT 107 H Alkaline Phosphatase 173 H Ammonia Troponin I 0.12 H 0.08 H Albumin 2.5 L Urine Protein Urine Glucose (UA) Urine Urobilinogen 12/30/17 12/30/17 05:30 05:30 WBC RDW Neutrophils % Lymphocytes % Monocytes % PT with INR Chloride 110 H Creatinine Random Glucose 309 H* AST 96 H ALT 104 H Alkaline Phosphatase 143 H Ammonia 102.06 H Troponin I Albumin 2.2 L Urine Protein Urine Glucose (UA) Urine Urobilinogen Problem List - Problems (1) Altered mental status, unspecified Code(s): R41.82 - ALTERED MENTAL STATUS, UNSPECIFIED (2) Hepatic encephalopathy Code(s): K72.90 - HEPATIC FAILURE, UNSPECIFIED WITHOUT COMA (3) NSTEMI (non-ST elevated myocardial infarction) Code(s): I21.4 - NON-ST ELEVATION (NSTEMI) MYOCARDIAL INFARCTION (4) Insulin dependent diabetes mellitus Code(s): E11.9 - TYPE 2 DIABETES MELLITUS WITHOUT COMPLICATIONS; Z79.4 - [employer] (CURRENT) USE OF INSULIN (5) Alcohol dependence with uncomplicated withdrawal Code(s): F10.230 - ALCOHOL DEPENDENCE WITH WITHDRAWAL, UNCOMPLICATED (6) Alcohol-induced anxiety disorder Code(s): F10.980 - ALCOHOL USE, UNSP WITH ALCOHOL-INDUCED ANXIETY DISORDER (7) Chronic liver disease and cirrhosis Code(s): K74.60 - UNSPECIFIED CIRRHOSIS OF LIVER; K76.9 - LIVER DISEASE, UNSPECIFIED (8) Cocaine dependence Code(s): F14.20 - COCAINE DEPENDENCE, UNCOMPLICATED Qualifiers: Substance use status: uncomplicated Qualified Code(s): F14.20 - Cocaine dependence, uncomplicated Assessment/Plan A 47 yof with history of alcoholoc liver cirrhosis with ?hepatic encephalopathy , ?Wernicke, mild ALT ~ AST hepatitis with cholestasis. Normal PT, Na, BUN, Cr, WBC, Hgb. No palpable ascites on exam. B1, Folate Lactulose and rifaximine. Target ~ 4 bms/day MRI liver daily PT, INR, Liver chemistry EGD to asses for esophageal varices and need for NSBBwill follow
[2017-12-30] MEDS ORDERED: PT OWN MED DRAWER 7, Y5N ONE (22:39)
[2017-12-30] MEDS: MIRTAZAPINE 15 MG TABLET (FP) PO SCH (23:30)
[2017-12-30] MEDS: RIFAXIMIN 550 MG TABLET (UD) PO SCH (23:30)
[2017-12-30] MEDS: traZODone HCL 50 MG TABLET (FP) PO SCH (23:30)
[2017-12-30] MEDS: RANITIDINE HCL 150 MG TABLET (FP) PO SCH (23:31)
[2017-12-30] MEDS: SODIUM CHLORIDE 1,000 ML IV SCH (23:32)
[2017-12-31] MEDS: INSULIN SLIDING SCALE (NOVOLOG) 1 VIAL SQ SCH ×4 (06:22→21:10)
--- NOTE | 2017-12-31 09:21 | PN ---
Progress Note, Physician History of Present Illness: On reg. foor now. No events. Continues to be confused. May net be taking oral medications - Current Medication List Current Medications: Active Medications Aspirin (Ecotrin -) 81 mg PO DAILY [facility] Last Admin: 12/30/17 10:11 Dose: 81 mg Sodium Chloride (Normal Saline -) 1,000 mls @ 75 mls/hr IV ASDIR [facility] Last Admin: 12/30/17 23:32 Dose: 75 mls/hr Insulin Aspart (Novolog Vial Sliding Scale -) 1 vial SQ ACHS [facility] PRN Reason: Protocol Last Admin: 12/31/17 06:22 Dose: 6 unit Lactulose (Cephulac (Oral Use)) 20 gm PO TID PRN PRN Reason: CONSTIPATION Lisinopril (Prinivil) 10 mg PO DAILY [facility] Last Admin: 12/30/17 10:11 Dose: 10 mg Metoprolol Succinate (Toprol Xl -) 25 mg PO DAILY [facility] Last Admin: 12/30/17 10:11 Dose: 25 mg Mirtazapine (Remeron -) 30 mg PO [facility] Last Admin: 12/30/17 23:30 Dose: Not Given Ranitidine HCl (Zantac -) 150 mg PO BID [facility] Last Admin: 12/30/17 23:31 Dose: Not Given Rifaximin (Xifaxan -) 550 mg PO BID [facility] Last Admin: 12/30/17 23:30 Dose: Not Given Trazodone HCl (Desyrel -) 150 mg PO [facility] Last Admin: 12/30/17 23:30 Dose: Not Given - Objective Vital Signs: Vital Signs Temperature 98.7 F 12/31/17 06:00 Pulse Rate 77 12/31/17 06:00 Respiratory Rate 18 12/31/17 06:00 Blood Pressure 128/89 12/31/17 06:00 O2 Sat by Pulse Oximetry (%) 96 12/30/17 21:00 Constitutional: Yes: No Distress, Calm Eyes: Yes: Conjunctiva Clear HENT: Yes: Atraumatic Neck: Yes: Supple Cardiovascular: Yes: Regular Rate and Rhythm Respiratory: Yes: Regular Gastrointestinal: Yes: Soft. No: Melena, Rectal Bleeding, Tenderness, Rebound, Vomiting 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: Yes: Confusion, Lethargy Labs: CBC, BMP 12/30/17 05:30 12/30/17 05:30 INR, PTT INR 1.06 (0.82-1.09) 12/29/17 18:07 Laboratory Results - last 24 hr 12/30/17 12/31/17 23:28 06:21 POC Glucometer [phone] Problem List - Problems (1) Altered mental status, unspecified Code(s): R41.82 - ALTERED MENTAL STATUS, UNSPECIFIED (2) Hepatic encephalopathy Code(s): K72.90 - HEPATIC FAILURE, UNSPECIFIED WITHOUT COMA (3) NSTEMI (non-ST elevated myocardial infarction) Code(s): I21.4 - NON-ST ELEVATION (NSTEMI) MYOCARDIAL INFARCTION (4) Insulin dependent diabetes mellitus Code(s): E11.9 - TYPE 2 DIABETES MELLITUS WITHOUT COMPLICATIONS; Z79.4 - [facility] (CURRENT) USE OF INSULIN (5) Alcohol dependence with uncomplicated withdrawal Code(s): F10.230 - ALCOHOL DEPENDENCE WITH WITHDRAWAL, UNCOMPLICATED (6) Alcohol-induced anxiety disorder Code(s): F10.980 - ALCOHOL USE, UNSP WITH ALCOHOL-INDUCED ANXIETY DISORDER (7) Chronic liver disease and cirrhosis Code(s): K74.60 - UNSPECIFIED CIRRHOSIS OF LIVER; K76.9 - LIVER DISEASE, UNSPECIFIED (8) Cocaine dependence Code(s): F14.20 - COCAINE DEPENDENCE, UNCOMPLICATED Qualifiers: Substance use status: uncomplicated Qualified Code(s): F14.20 - Cocaine dependence, uncomplicated Assessment/Plan A 47 yof with history of alcoholoc liver cirrhosis with ?hepatic encephalopathy , ?Wernicke, mild ALT ~ AST hepatitis with cholestasis. Normal PT, Na, BUN, Cr, WBC, Hgb. No palpable ascites on exam. B1, Folate Lactulose and rifaximine. Target ~ 4 bms/day MRI liver daily PT, INR, Liver chemistry Hemoccult postive stools EGD to asses for esophageal varices and need for NSBBwill follow. NPO after midnight
[2017-12-31] MEDS ORDERED: PT OWN MED DRAWER 7, Y5N ONE ×2 (10:10→18:19)
[2017-12-31] MEDS: RANITIDINE HCL 150 MG TABLET (FP) PO SCH ×2 (10:18→21:09)
[2017-12-31] MEDS: RIFAXIMIN 550 MG TABLET (UD) PO SCH ×2 (10:18→21:09)
[2017-12-31] MEDS: LISINOPRIL 10 MG TABLET (FP) PO SCH (10:18)
[2017-12-31] MEDS: ASPIRIN COATED 81 MG TABLET.EC PO SCH (10:18)
[2017-12-31] MEDS: metoPROLOL SUCCINATE 25 MG TAB.SR.24H (FP) PO SCH (10:18)
--- NOTE | 2017-12-31 13:15 | PN ---
Progress Note, Physician History of Present Illness: Resting comfortably, denies chest pain or dyspnea. - Current Medication List Current Medications: Active Medications Aspirin (Ecotrin -) 81 mg PO DAILY [facility] Last Admin: 12/31/17 10:18 Dose: 81 mg Sodium Chloride (Normal Saline -) 1,000 mls @ 75 mls/hr IV ASDIR [facility] Last Admin: 12/30/17 23:32 Dose: 75 mls/hr Insulin Aspart (Novolog Vial Sliding Scale -) 1 vial SQ ACHS [facility] PRN Reason: Protocol Last Admin: 12/31/17 11:02 Dose: 12 unit Lactulose (Cephulac (Oral Use)) 20 gm PO TID PRN PRN Reason: CONSTIPATION Lactulose (Cephulac -) 200 gm RC BID [facility] Lisinopril (Prinivil) 10 mg PO DAILY [facility] Last Admin: 12/31/17 10:18 Dose: 10 mg Metoprolol Succinate (Toprol Xl -) 25 mg PO DAILY [facility] Last Admin: 12/31/17 10:18 Dose: 25 mg Mirtazapine (Remeron -) 30 mg PO [facility] Last Admin: 12/30/17 23:30 Dose: Not Given Ranitidine HCl (Zantac -) 150 mg PO BID [facility] Last Admin: 12/31/17 10:18 Dose: 150 mg Rifaximin (Xifaxan -) 550 mg PO BID [facility] Last Admin: 12/31/17 10:18 Dose: 550 mg Trazodone HCl (Desyrel -) 150 mg PO [facility] Last Admin: 12/30/17 23:30 Dose: Not Given - Objective Vital Signs: Vital Signs Temperature 98.1 F 12/31/17 09:00 Pulse Rate 83 12/31/17 09:00 Respiratory Rate 18 12/31/17 09:00 Blood Pressure 129/83 12/31/17 09:00 O2 Sat by Pulse Oximetry (%) 98 12/31/17 09:00 Constitutional: Yes: No Distress, Calm, Thin Neck: Yes: Supple Cardiovascular: Yes: Regular Rate and Rhythm Respiratory: Yes: Regular, Diminished Gastrointestinal: Yes: Soft, Hypoactive Bowel Sounds Edema: No Labs: CBC, BMP 12/30/17 05:30 12/30/17 05:30 INR, PTT INR 1.06 (0.82-1.09) 12/29/17 18:07 Problem List - Problems (1) Demand ischemia Code(s): I24.8 - OTHER FORMS OF ACUTE ISCHEMIC HEART DISEASE (2) Hepatic encephalopathy Code(s): K72.90 - HEPATIC FAILURE, UNSPECIFIED WITHOUT COMA (3) Chronic liver disease and cirrhosis Code(s): K74.60 - UNSPECIFIED CIRRHOSIS OF LIVER; K76.9 - LIVER DISEASE, UNSPECIFIED (4) Diabetes mellitus, insulin dependent (IDDM), uncontrolled Code(s): E10.65 - TYPE 1 DIABETES MELLITUS WITH HYPERGLYCEMIA Qualifiers: Diabetes mellitus complication status: without complication (5) Hypertension Code(s): I10 - ESSENTIAL (PRIMARY) HYPERTENSION Qualifiers: Hypertension type: essential hypertension Qualified Code(s): I10 - Essential (primary) hypertension (6) Substance induced mood disorder Code(s): F19.94 - OTH PSYCHOACTIVE SUBSTANCE USE, UNSP W MOOD DISORDER Assessment/Plan 12/30/2017 Normal biventricular size and fxn, tr AR 1. CAD post demand ischemic injury, with no clinical angina pectoris 2. Diastolic LV dysfunction with class 0 NYHA classification LV failure 3. HTN 4. DM 5. Chronic liver disease/alcoholic cirrhosis with hepatic encephelopathy 6. Depressive disorder 7. Substance abuse/alcohol and cocaine dependence PLAN: 1. Continue ASA 81 qd, Toprol XL 25 qd and lisinopril 10 qd 2. Check Lipid profile and initiate statin therapy 3. F/u MRI liver 4. Plan for conservative medical management considering patient's history of poor compliance with therapy administration and F/U 5. Plan for EGD to asses for esophageal varices and need for NSBB, may proceed from CV-standpoint
[2017-12-31] MEDS: LACTULOSE 10 GM/15 ML BULK BOTTLE RC SCH ×2 (13:49→21:10)
[2017-12-31] MEDS: LACTULOSE 20 GM/30 ML UDC (FOR ORAL USE ONLY) PO PRN ×2 (13:56→21:03)
--- NOTE | 2017-12-31 17:48 | PN ---
Progress Note, Physician History of Present Illness: feeling better - Current Medication List Current Medications: Active Medications Aspirin (Ecotrin -) 81 mg PO DAILY [facility] Last Admin: 12/31/17 10:18 Dose: 81 mg Sodium Chloride (Normal Saline -) 1,000 mls @ 75 mls/hr IV ASDIR [facility] Last Admin: 12/30/17 23:32 Dose: 75 mls/hr Insulin Aspart (Novolog Vial Sliding Scale -) 1 vial SQ ACHS [facility] PRN Reason: Protocol Last Admin: 12/31/17 16:29 Dose: 10 unit Lactulose (Cephulac (Oral Use)) 20 gm PO TID PRN PRN Reason: CONSTIPATION Last Admin: 12/31/17 13:56 Dose: 20 gm Lactulose (Cephulac -) 200 gm RC BID [facility] Last Admin: 12/31/17 13:49 Dose: Not Given Lisinopril (Prinivil) 10 mg PO DAILY [facility] Last Admin: 12/31/17 10:18 Dose: 10 mg Metoprolol Succinate (Toprol Xl -) 25 mg PO DAILY [facility] Last Admin: 12/31/17 10:18 Dose: 25 mg Mirtazapine (Remeron -) 30 mg PO [facility] Last Admin: 12/30/17 23:30 Dose: Not Given Ranitidine HCl (Zantac -) 150 mg PO BID [facility] Last Admin: 12/31/17 10:18 Dose: 150 mg Rifaximin (Xifaxan -) 550 mg PO BID [facility] Last Admin: 12/31/17 10:18 Dose: 550 mg Trazodone HCl (Desyrel -) 150 mg PO [facility] Last Admin: 12/30/17 23:30 Dose: Not Given - Objective Vital Signs: Vital Signs Temperature 97.5 F L 12/31/17 14:43 Pulse Rate 79 12/31/17 14:43 Respiratory Rate 18 12/31/17 14:43 Blood Pressure 118/76 12/31/17 14:43 O2 Sat by Pulse Oximetry (%) 98 12/31/17 09:00 Constitutional: Yes: No Distress HENT: Yes: Atraumatic Neck: Yes: Supple Cardiovascular: Yes: Regular Rate and Rhythm Respiratory: Yes: CTA Bilaterally Gastrointestinal: Yes: Normal Bowel Sounds Extremities: Yes: WNL 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: Yes: Alert, Oriented Labs: CBC, BMP 12/30/17 05:30 12/30/17 05:30 INR, PTT INR 1.06 (0.82-1.09) 12/29/17 18:07 Problem List - Problems (1) Altered mental status, unspecified Assessment/Plan: alert and oriented Code(s): R41.82 - ALTERED MENTAL STATUS, UNSPECIFIED (2) Hepatic encephalopathy Assessment/Plan: monitor ammonia level on lactulose gi consult Code(s): K72.90 - HEPATIC FAILURE, UNSPECIFIED WITHOUT COMA (3) NSTEMI (non-ST elevated myocardial infarction) Assessment/Plan: follow up cardiac enzymes..trend down Code(s): I21.4 - NON-ST ELEVATION (NSTEMI) MYOCARDIAL INFARCTION (4) Insulin dependent diabetes mellitus Assessment/Plan: bgms hold insulin as pt is npo Code(s): E11.9 - TYPE 2 DIABETES MELLITUS WITHOUT COMPLICATIONS; Z79.4 - USP (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
[2017-12-31] MEDS: traZODone HCL 50 MG TABLET (FP) PO SCH (21:10)
[2017-12-31] MEDS: MIRTAZAPINE 15 MG TABLET (FP) PO SCH (23:43)
[2018-01-01] MEDS ORDERED: LACTULOSE 10 GM/15 ML BULK BOTTLE RC PRN (02:43)
[2018-01-01] MEDS: INSULIN SLIDING SCALE (NOVOLOG) 1 VIAL SQ SCH ×4 (06:05→22:08)
[2018-01-01 06:10] LABS: HBSAG SCREEN Negative (Negative); HEP B CORE AB, TOT Negative (Negative)
[2018-01-01 08:34] LABS: BASO % 0.1 % (0-2.0); HEMATOCRIT 38.6 % (32.4-45.2); HEMOGLOBIN 12.3 GM/dL (10.7-15.3); LYMPH % 50.4 % (8-40); MCHC 31.9 g/dl (32.0-36.0); MEAN CELL VOLUME 87.7 fl (80-96); MEAN PLT VOLUME 9.2 fl (7.5-11.1); NEUT % 34.5 % (42.8-82.8); PLATELET COUNT 187 K/MM3 (134-434); RDW 16.3 % (11.6-15.6); WHITE BLOOD COUNT 3.8 K/mm3 (4.0-10.0)
[2018-01-01 08:38] LABS: BLOOD UREA NITROGEN 12 mg/dL (7-18); CHLORIDE 108 mmol/L (98-107); POTASSIUM 3.8 mmol/L (3.5-5.1); SODIUM 138 mmol/L (136-145)
[2018-01-01 08:39] LABS: INR 1.11 (0.82-1.09); PROTHROMBIN TIME (PATIENT) 12.5 SEC (9.98-11.88)
[2018-01-01 08:46] LABS: ALBUMIN 2.3 g/dl (3.4-5.0); ALK PHOS 174 U/L (45-117); ANION GAP 11 (8-16); BILIRUBIN,TOTAL 0.4 mg/dL (0.2-1.0); CALCIUM 7.8 mg/dL (8.5-10.1); CO2 19 mmol/L (21-32); CREATININE 0.5 mg/dL (0.55-1.02); GLUCOSE,RANDOM 296 mg/dL (74-106); SGOT/AST 122 U/L (15-37); SGPT/ALT 144 U/L (12-78); TOT PROT 6.8 g/dl (6.4-8.2)
[2018-01-01] MEDS: RIFAXIMIN 550 MG TABLET (UD) PO SCH ×2 (09:15→22:09)
[2018-01-01] MEDS: SODIUM CHLORIDE 1,000 ML IV SCH ×3 (09:15→23:45)
[2018-01-01] MEDS: ASPIRIN COATED 81 MG TABLET.EC PO SCH (09:15)
[2018-01-01] MEDS: metoPROLOL SUCCINATE 25 MG TAB.SR.24H (FP) PO SCH (09:15)
[2018-01-01] MEDS: LISINOPRIL 10 MG TABLET (FP) PO SCH (09:15)
[2018-01-01] MEDS: RANITIDINE HCL 150 MG TABLET (FP) PO SCH ×2 (09:16→22:10)
[2018-01-01] MEDS ORDERED: LIDOCAINE HCL 2% (20ML MULTI-DOSE VIAL) NR ONE (11:37)
[2018-01-01] MEDS ORDERED: PROPOFOL 20 ML ONE ×2 (11:37)
--- NOTE | 2018-01-01 11:44 | PN ---
Progress Note, Physician History of Present Illness: Patient undergoing EGD. - Current Medication List Current Medications: Active Medications Aspirin (Ecotrin -) 81 mg PO DAILY [facility] Last Admin: 01/01/18 09:15 Dose: Not Given Sodium Chloride (Normal Saline -) 1,000 mls @ 75 mls/hr IV ASDIR [facility] Last Admin: 01/01/18 09:15 Dose: Not Given Insulin Aspart (Novolog Vial Sliding Scale -) 1 vial SQ ACHS [facility] PRN Reason: Protocol Last Admin: 01/01/18 06:05 Dose: Not Given Lactulose (Cephulac (Oral Use)) 20 gm PO TID PRN PRN Reason: CONSTIPATION Last Admin: 12/31/17 21:03 Dose: 20 gm Lactulose (Cephulac -) 200 gm RC BID PRN PRN Reason: ONLY IF PT. UNABLE TO TAKE PO Lisinopril (Prinivil) 10 mg PO DAILY [facility] Last Admin: 01/01/18 09:15 Dose: Not Given Metoprolol Succinate (Toprol Xl -) 25 mg PO DAILY [facility] Last Admin: 01/01/18 09:15 Dose: Not Given Mirtazapine (Remeron -) 30 mg PO HS [facility] Last Admin: 12/31/17 23:43 Dose: Not Given Ranitidine HCl (Zantac -) 150 mg PO BID [facility] Last Admin: 01/01/18 09:16 Dose: Not Given Rifaximin (Xifaxan -) 550 mg PO BID [facility] Last Admin: 01/01/18 09:15 Dose: Not Given Trazodone HCl (Desyrel -) 150 mg PO HS [facility] Last Admin: 12/31/17 21:10 Dose: Not Given - Objective Vital Signs: Vital Signs Temperature 98.0 F 01/01/18 09:00 Pulse Rate 80 01/01/18 09:00 Respiratory Rate 18 01/01/18 09:00 Blood Pressure 137/95 01/01/18 09:00 O2 Sat by Pulse Oximetry (%) 100 01/01/18 09:00 Labs: CBC, BMP 01/01/18 07:00 01/01/18 08:15 INR, PTT INR 1.11 (0.82-1.09) 01/01/18 06:00 Problem List - Problems (1) Demand ischemia Code(s): I24.8 - OTHER FORMS OF ACUTE ISCHEMIC HEART DISEASE (2) Hepatic encephalopathy Code(s): K72.90 - HEPATIC FAILURE, UNSPECIFIED WITHOUT COMA (3) Chronic liver disease and cirrhosis Code(s): K74.60 - UNSPECIFIED CIRRHOSIS OF LIVER; K76.9 - LIVER DISEASE, UNSPECIFIED (4) Diabetes mellitus, insulin dependent (IDDM), uncontrolled Code(s): E10.65 - TYPE 1 DIABETES MELLITUS WITH HYPERGLYCEMIA Qualifiers: Diabetes mellitus complication status: without complication Qualified Code( s): E10.65 - Type 1 diabetes mellitus with hyperglycemia (5) Hypertension Code(s): I10 - ESSENTIAL (PRIMARY) HYPERTENSION Qualifiers: Hypertension type: essential hypertension Qualified Code(s): I10 - Essential (primary) hypertension (6) Substance induced mood disorder Code(s): F19.94 - OTH PSYCHOACTIVE SUBSTANCE USE, UNSP W MOOD DISORDER Assessment/Plan 12/30/2017 Normal biventricular size and fxn, tr AR 1. CAD post demand ischemic injury, with no clinical angina pectoris 2. Diastolic LV dysfunction with class 0 NYHA classification LV failure 3. HTN 4. DM 5. Chronic liver disease/alcoholic cirrhosis with hepatic encephelopathy 6. Depressive disorder 7. Substance abuse/alcohol and cocaine dependence PLAN: 1. Continue ASA 81 qd, Toprol XL 25 qd and lisinopril 10 qd 2. Check Lipid profile and initiate statin therapy 3. F/u MRI liver 4. Plan for conservative medical management considering patient's history of poor compliance with therapy administration and F/U 5. Await EGD results to assess for esophageal varices and need for NSBB
--- NOTE | 2018-01-01 12:03 | PROC ---
Endoscopy Procedure Endoscopy procedure completed. Please see scanned procedure report. grade I-II esophageal varices w/o stigmata of recent, or impending bleeding. Portal hypertensive gastropathy was found, biopsies taken denuded duodenal mucosa was found. Biopsies taken resume low salt diet PPI Nadolol 20 mg daily follow biopsies in 2 weeks in office
[2018-01-01] MEDS: LACTULOSE 20 GM/30 ML UDC (FOR ORAL USE ONLY) PO PRN ×2 (14:04→22:10)
--- NOTE | 2018-01-01 17:56 | PN ---
Progress Note, Physician History of Present Illness: feeling good - Current Medication List Current Medications: Active Medications Aspirin (Ecotrin -) 81 mg PO DAILY [facility] Last Admin: 01/01/18 09:15 Dose: Not Given Sodium Chloride (Normal Saline -) 1,000 mls @ 75 mls/hr IV ASDIR [facility] Last Admin: 01/01/18 09:15 Dose: Not Given Insulin Aspart (Novolog Vial Sliding Scale -) 1 vial SQ ACHS [facility] PRN Reason: Protocol Last Admin: 01/01/18 16:22 Dose: 10 unit Lactulose (Cephulac (Oral Use)) 20 gm PO TID PRN PRN Reason: CONSTIPATION Last Admin: 01/01/18 14:04 Dose: 20 gm Lactulose (Cephulac -) 200 gm RC BID PRN PRN Reason: ONLY IF PT. UNABLE TO TAKE PO Lisinopril (Prinivil) 10 mg PO DAILY [facility] Last Admin: 01/01/18 09:15 Dose: Not Given Metoprolol Succinate (Toprol Xl -) 25 mg PO DAILY [facility] Last Admin: 01/01/18 09:15 Dose: Not Given Mirtazapine (Remeron -) 30 mg PO [facility] Last Admin: 12/31/17 23:43 Dose: Not Given Ranitidine HCl (Zantac -) 150 mg PO BID [facility] Last Admin: 01/01/18 09:16 Dose: Not Given Rifaximin (Xifaxan -) 550 mg PO BID [facility] Last Admin: 01/01/18 09:15 Dose: Not Given Trazodone HCl (Desyrel -) 150 mg PO [facility] Last Admin: 12/31/17 21:10 Dose: Not Given - Objective Vital Signs: Vital Signs Temperature 98.6 F 01/01/18 17:28 Pulse Rate 88 01/01/18 17:28 Respiratory Rate 18 01/01/18 17:28 Blood Pressure 141/93 01/01/18 17:28 O2 Sat by Pulse Oximetry (%) 100 01/01/18 13:16 Constitutional: Yes: No Distress HENT: Yes: Atraumatic Neck: Yes: Supple Cardiovascular: Yes: Regular Rate and Rhythm Respiratory: Yes: CTA Bilaterally Gastrointestinal: Yes: Normal Bowel Sounds Extremities: Yes: WNL 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: Yes: Alert, Oriented Labs: CBC, BMP 01/01/18 07:00 01/01/18 08:15 INR, PTT INR 1.11 (0.82-1.09) 01/01/18 06:00 Problem List - Problems (1) Altered mental status, unspecified Assessment/Plan: doing well Code(s): R41.82 - ALTERED MENTAL STATUS, UNSPECIFIED (2) Hepatic encephalopathy Assessment/Plan: monitor ammonia level on lactulose alert Code(s): K72.90 - HEPATIC FAILURE, UNSPECIFIED WITHOUT COMA (3) NSTEMI (non-ST elevated myocardial infarction) Assessment/Plan: follow up cardiac enzymes cardiology consult Code(s): I21.4 - NON-ST ELEVATION (NSTEMI) MYOCARDIAL INFARCTION (4) Insulin dependent diabetes mellitus Assessment/Plan: bgms sliding scale insulin Code(s): E11.9 - TYPE 2 DIABETES MELLITUS WITHOUT COMPLICATIONS; Z79.4 - COMPRESSOR ENGINEER (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
[2018-01-01] MEDS: MIRTAZAPINE 15 MG TABLET (FP) PO SCH (22:08)
[2018-01-01] MEDS: traZODone HCL 50 MG TABLET (FP) PO SCH (22:08)
[2018-01-02] MEDS: INSULIN SLIDING SCALE (NOVOLOG) 1 VIAL SQ SCH (06:45)
[2018-01-02 07:48] LABS: INR 1.13 (0.82-1.09); PROTHROMBIN TIME (PATIENT) 12.8 SEC (9.98-11.88)
[2018-01-02] MEDS: SODIUM CHLORIDE 1,000 ML IV SCH (08:30)
[2018-01-02 09:28] VITALS: BP 157/93; PULSE 94; TEMP 97.8
[2018-01-02] MEDS: ASPIRIN COATED 81 MG TABLET.EC PO SCH (11:00)
[2018-01-02] MEDS: LISINOPRIL 10 MG TABLET (FP) PO SCH (11:00)
[2018-01-02] MEDS: RANITIDINE HCL 150 MG TABLET (FP) PO SCH (11:00)
[2018-01-02] MEDS: RIFAXIMIN 550 MG TABLET (UD) PO SCH (11:00)
--- NOTE | 2018-01-02 11:10 | PN ---
Progress Note, Physician History of Present Illness: EGD results acknowledged. Sensorium resolved to baseline. - Current Medication List Current Medications: Active Medications Aspirin (Ecotrin -) 81 mg PO DAILY [facility] Last Admin: 01/01/18 09:15 Dose: Not Given Sodium Chloride (Normal Saline -) 1,000 mls @ 75 mls/hr IV ASDIR [facility] Last Admin: 01/02/18 08:30 Dose: 75 mls/hr Insulin Aspart (Novolog Vial Sliding Scale -) 1 vial SQ ACHS [facility] PRN Reason: Protocol Last Admin: 01/02/18 06:45 Dose: 10 unit Lactulose (Cephulac (Oral Use)) 20 gm PO TID PRN PRN Reason: CONSTIPATION Last Admin: 01/01/18 22:10 Dose: 20 gm Lactulose (Cephulac -) 200 gm RC BID PRN PRN Reason: ONLY IF PT. UNABLE TO TAKE PO Lisinopril (Prinivil) 10 mg PO DAILY [facility] Last Admin: 01/01/18 09:15 Dose: Not Given Metoprolol Succinate (Toprol Xl -) 25 mg PO DAILY [facility] Last Admin: 01/01/18 09:15 Dose: Not Given Mirtazapine (Remeron -) 30 mg PO [facility] Last Admin: 01/01/18 22:08 Dose: 30 mg Ranitidine HCl (Zantac -) 150 mg PO BID [facility] Last Admin: 01/01/18 22:10 Dose: 150 mg Rifaximin (Xifaxan -) 550 mg PO BID [facility] Last Admin: 01/01/18 22:09 Dose: 550 mg Trazodone HCl (Desyrel -) 150 mg PO [facility] Last Admin: 01/01/18 22:08 Dose: 150 mg - Objective Vital Signs: Vital Signs Temperature 97.8 F 01/02/18 09:28 Pulse Rate 94 H 01/02/18 09:28 Respiratory Rate 18 01/02/18 09:28 Blood Pressure 157/93 01/02/18 09:28 O2 Sat by Pulse Oximetry (%) 98 01/01/18 20:31 Constitutional: Yes: No Distress, Calm, Thin Neck: Yes: Supple Cardiovascular: Yes: Regular Rate and Rhythm Respiratory: Yes: Regular, Diminished Gastrointestinal: Yes: Normal Bowel Sounds, Soft Edema: No Labs: CBC, BMP 01/01/18 07:00 01/01/18 08:15 INR, PTT INR 1.13 (0.82-1.09) 01/02/18 06:30 Problem List - Problems (1) Demand ischemia Code(s): I24.8 - OTHER FORMS OF ACUTE ISCHEMIC HEART DISEASE (2) Hepatic encephalopathy Code(s): K72.90 - HEPATIC FAILURE, UNSPECIFIED WITHOUT COMA (3) Chronic liver disease and cirrhosis Code(s): K74.60 - UNSPECIFIED CIRRHOSIS OF LIVER; K76.9 - LIVER DISEASE, UNSPECIFIED (4) Diabetes mellitus, insulin dependent (IDDM), uncontrolled Code(s): E10.65 - TYPE 1 DIABETES MELLITUS WITH HYPERGLYCEMIA Qualifiers: Diabetes mellitus complication status: without complication Qualified Code( s): E10.65 - Type 1 diabetes mellitus with hyperglycemia (5) Hypertension Code(s): I10 - ESSENTIAL (PRIMARY) HYPERTENSION Qualifiers: Hypertension type: essential hypertension Qualified Code(s): I10 - Essential (primary) hypertension (6) Substance induced mood disorder Code(s): F19.94 - OTH PSYCHOACTIVE SUBSTANCE USE, UNSP W MOOD DISORDER (7) Esophageal varices Code(s): I85.00 - ESOPHAGEAL VARICES WITHOUT BLEEDING Qualifiers: Esophageal varices type: secondary Esophageal varices bleeding: without bleeding Qualified Code(s): I85.10 - Secondary esophageal varices without bleeding (8) Portal hypertensive gastropathy Code(s): K31.89 - OTHER DISEASES OF STOMACH AND DUODENUM Assessment/Plan 12/30/2017 Normal biventricular size and fxn, tr AR 1. CAD post demand ischemic injury, with no clinical angina pectoris 2. Diastolic LV dysfunction with class 0 NYHA classification LV failure 3. HTN 4. IDDM 5. Chronic liver disease/alcoholic cirrhosis with hepatic encephelopathy, esophageal varices and portal hypertensive gastropathy 6. Depressive disorder 7. Substance abuse/alcohol and cocaine dependence PLAN: 1. Continue ASA 81 qd and lisinopril 10 qd 2. Patient reports taking Lantus 40 U nightly 3. F/u MRI liver 4. Plan for conservative medical management considering patient's history of poor compliance with therapy administration and F/U 5 Toprol XL changed to Nadolol 20 qd, f/u biopsies
[2018-01-02] MEDS: metoPROLOL SUCCINATE 25 MG TAB.SR.24H (FP) PO SCH (11:25)
[2018-01-02] MEDS ORDERED: INSULIN (NOVOLOG) ASPART 100 UNITS/ML 10ML VIAL ONE (11:48)
--- NOTE | 2018-01-02 12:54 | DS ---
Physical Examination Vital Signs: Vital Signs Temperature 97.8 F 01/02/18 09:28 Pulse Rate 94 H 01/02/18 09:28 Respiratory Rate 18 01/02/18 09:28 Blood Pressure 157/93 01/02/18 09:28 O2 Sat by Pulse Oximetry (%) 98 01/02/18 09:00 Constitutional: Yes: No Distress HENT: Yes: Atraumatic Neck: Yes: Supple Cardiovascular: Yes: Regular Rate and Rhythm Respiratory: Yes: CTA Bilaterally Gastrointestinal: Yes: Normal Bowel Sounds Extremities: Yes: WNL 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: Yes: Alert, Oriented Labs: CBC, BMP 01/01/18 07:00 01/01/18 08:15 Discharge Summary Reason For Visit: NON-ST ELEVATION(NSTEM1) MYOCARDIAL IN INFARCTION - Instructions Referrals: Pedrito Hogan MD [Staff Physician] - Avni Resendiz MD [Staff Physician] - Disposition: HOME - Home Medications Comprehensive Discharge Medication List: Ambulatory Orders Lisinopril [Prinivil] 20 mg PO DAILY #30 tablet 11/27/16 Ranitidine [Zantac -] 150 mg PO BID #60 tablet 11/27/16 Gabapentin [Neurontin -] 400 mg PO TID #90 cap 04/09/17 Pregabalin [Lyrica] 150 mg PO HS 04/30/17 Insulin Glargine,Hum.rec.anlog [Lantus Solostar PEN -] 40 units SQ HS 10/20/17 Insulin Lispro [Humalog] 0 unit SQ TIDCM 10/20/17 Mirtazapine [Remeron -] 30 mg PO HS #30 tablet 12/22/17 Trazodone HCl [Desyrel -] 150 mg PO HS #30 tablet 12/22/17 Lactulose (Oral Use) [Cephulac -] 20 gm PO TID PRN udc 01/01/18 Rifaximin [Xifaxan -] 550 mg PO BID tablet 01/01/18 dc home please read continuing care note
--- NOTE | 2018-01-02 14:52 | PATH ---
Surgical Pathology Report Patient Name: YANICK ANGELO Med. Rec. #: [id number] /Age/Gender: 1970 (Age: 47) / F Account: [id number] Location: [facility] MED/SURG Taken: 01/01/2018 Received: 01/01/2018 Reported: 01/02/2018 Physicians: Avni Resendiz M.D. Specimen(s) Received A: BX DUODENUM B: BX ANTRUM AND BODY Clinical History Preoperative diagnosis: Evaluate for esophageal varices Postoperative diagnosis: Gastritis, grade one esophageal varices Final Diagnosis A. DUODENUM, SECOND PORTION, BIOPSY: DUODENAL MUCOSA WITH NO PATHOLOGIC CHANGES. NO HISTOLOGIC EVIDENCE OF GLUTEN SENSITIVE ENTEROPATHY (CELIAC SPRUE) IDENTIFIED. B. STOMACH, ANTRUM/BODY, BIOPSY: GASTRIC ANTRAL AND FUNDIC MUCOSA WITH FOCAL MILD CHRONIC GASTRITIS AND MILD REACTIVE GASTROPATHY. IMMUNOSTAIN FOR H. PYLORI IS NEGATIVE. Electronically Signed Oj Sinha M.D. Gross Description A. Received in formalin, labeled "biopsy second portion of duodenum" are 2 flannery, irregular portions of soft tissue measuring 0.2 and 1.1 cm. in greatest dimension. The specimens are submitted in toto in one cassette. B. Received in formalin, labeled "biopsy antrum/body" are 2 flannery, irregular portions of soft tissue averaging 0.2 cm. in greatest dimension. The specimens are submitted in toto in one cassette. 01/01/2018 saudi01/01/2018
[2018-01-03] MEDS ORDERED: NADOLOL 20 MG TABLET (FP) PO SCH (10:00)
== END 2018-01-02 12:38 | disposition home or self-care (01) | DRG 442 ==
LOC: JER 16:52 → JERBED 21:34 → J2W 23:51 → J7W 12-30 20:31
PROVIDERS: ADMIT Internal Medicine; ATTEND Internal Medicine
PROC: 0DB68ZX Excision of Stomach, Via Natural or Artificial Opening Endoscopic, Diagnostic (ICD-10-PCS; 2018-01-01)
PROC: 0DB98ZX Excision of Duodenum, Via Natural or Artificial Opening Endoscopic, Diagnostic (ICD-10-PCS; principal; 2018-01-01 10:30)
DX: K72.90 Hepatic failure, unspecified without coma (principal); F14.20 Cocaine dependence, uncomplicated; F10.280 Alcohol dependence with alcohol-induced anxiety disorder; I24.8 Other forms of acute ischemic heart disease; K76.6 Portal hypertension; I85.00 Esophageal varices without bleeding; I50.30 Unspecified diastolic (congestive) heart failure; F32.9 Major depressive disorder, single episode, unspecified; Z79.4 Long term (current) use of insulin; I25.10 Atherosclerotic heart disease of native coronary artery without angina pectoris; K21.9 Gastro-esophageal reflux disease without esophagitis; K70.30 Alcoholic cirrhosis of liver without ascites; E11.40 Type 2 diabetes mellitus with diabetic neuropathy, unspecified; E11.65 Type 2 diabetes mellitus with hyperglycemia; K31.89 Other diseases of stomach and duodenum; K29.80 Duodenitis without bleeding; I11.0 Hypertensive heart disease with heart failure
CPT/HCPCS: 36415; 70450-TC; 71045-TC; 80053; 81003; 81015; 82140; 82272; 82550; 82746; 82962; 83605; 84425; 84484; 84703; 85025; 85610; 86704; 86706; 86708; 86803; 87086; 87340; 88305-TC; 93005; 93010; 93306-TC; 99284-25

== ENCOUNTER 2018-06-22 10:20 | Inpatient (IN) | payer OTHER ==
[2018-06-22 11:04] VITALS: BMI 26.9
--- NOTE | 2018-06-22 11:43 | PN ---
[facility] Progress Note Note: PATIENT BROUGHT IN BY [employer] AND PRESENTS TO [facility] FOR DETOX WE[facility] BAND FROM [facility]. PATIENT ALERT AND ORIENTED X 3 AND INITIALLY STATED SHE WAS NOT TREATED AT ER THAT SHE WAS ONLY REGISTERED. PATIENT DOES NOT HAVE DISCHARGE PAPERS WITH HER UPON ARRIVAL TO [facility]. PATIENT HAS PMH OF ALCOHOLISM, DM, HTN, NSTEMI AND ESOPHAGEAL VARICES. PATIENT SIGNED CONSENT TO CALL [facility] AND PERSONAL SUPPORT WORKER SPOKE TO DR. FLORENTINO WHO INFORMED PERSONAL SUPPORT WORKER PATIENT WAS TREATED AT ER FOR ELEVATED BLOOD SUGAR OF 444 AT 4:30AM. PATIENT GIVEN 8 UNITS OF INSULIN BUT PATIENT LEFT DURING TREATMENT WITH [employer] AND WAS NOT OFFICIALLY DISCHARGED. BLOOD SUGAR AT 11:02 370. PATIENT VS 144/82, PULSE 88 RR 20. PATIENT TO BE TRANSFERRED TO [facility] FOR EVALUATION AND MEDICAL CLEARANCE. REPORT GIVEN TO DR. ENGLAND AT [facility].
--- NOTE | 2018-06-22 17:45 | HP ---
Admission [facility] Chief Complaint: alcohol and cocaine rehabilitation Allergies/Adverse Reactions: Allergies Allergy/AdvReac Type Severity Reaction Status Date / Time fish derived Allergy Severe Swelling Verified 06/22/18 12:25 shellfish derived Allergy Severe Swelling Verified 06/22/18 12:25 No Known Drug Allergies Allergy Verified 06/22/18 12:25 SEAFOOD Allergy Severe Swelling Uncoded 06/22/18 12:25 History of Present Illness: 47 yo female with hx of alcohol dependence is here seeking detox. As per patient she completed detox at [facility] two weeks ago last drink was two days ago reports was seen at [facility] today for elevated BGM of 444 , patient was also evaluated today at our ED [facility], BGM at this time 259. PMHX: Liver cirrhosis, DM II, neuropathy, CT ( Jan 2018), HTN, depression. Denies suicidal / homicidal ideation. Exam Limitations: No Limitations - Ebola screening Have you traveled outside of the country in the last 21 days: No (N) Have you had contact with anyone from an Ebola affected area: No Have you been sick,other than usual withdrawal symptoms: No Do you have a fever: No - Review of Systems Constitutional: Loss of Appetite, Changes in sleep, Unintentional Wgt. Loss (15 lbs over 30 days) EENT: reports: No Symptoms Reported Respiratory: reports: No Symptoms reported Cardiac: reports: No Symptoms Reported GI: reports: No Symptoms Reported : reports: No Symptoms Reported Musculoskeletal: reports: No Symptoms Reported Integumentary: reports: No Symptoms Reported Endocrine: reports: Increased Thirst Hematology: reports: No Symptoms Reported Psychiatric: reports: Orientated x3, Depressed (reports greaving of who 2 years ago from an CT) Other Systems: Reviewed and Negative Patient History - Patient Medical History Hx Anemia: No Hx Asthma: No Hx Chronic Obstructive Pulmonary Disease (COPD): No Hx Cancer: No Hx Cardiac Disorders: No Hx Congestive Heart Failure: No Hx Hypertension: Yes (non compliant with meds.) Hx Hypercholesterolemia: No Hx Pacemaker: No HX Cerebrovascular Accident: No Hx Seizures: No Hx Dementia: No Hx Diabetes: Yes Hx Gastrointestinal Disorders: Yes (GERD) Hx Liver Disease: Yes (chronic liver disease/cirrhosis) Hx Genitourinary Disorders: No Hx Sexually Transmitted Disorders: No Hx Renal Disease (ESRD): No Hx Thyroid Disease: No Hx Human Immunodeficiency Virus (HIV): No (NEGATIVE HX) Hx Hepatitis C: No (NEGATIVE ) Hx Depression: Yes Hx Suicide Attempt: No Hx Bipolar Disorder: No Hx Schizophrenia: No - Patient Surgical History Past Surgical History: Yes Hx Neurologic Surgery: No Hx Cataract Extraction: No Hx Cardiac Surgery: No Hx Lung Surgery: No Hx Breast Surgery: No Hx Breast Biopsy: No Hx Abdominal Surgery: Yes (TUBAL LIGATION IN 2005) Hx Appendectomy: Yes (10/25/17) Hx Cholecystectomy: Yes Hx Genitourinary Surgery: No Hx Section: No Hx Orthopedic Surgery: Yes (neck, 11/30/2015 (fall);SX COCYX DUE TO OSTEOMYLITIS - 2010) Other Surgical History: Pt had sx for intestinal blockage in 11/16 in [facility] 11/16 Anesthesia Reaction: No - PPD History Documented Results: Negative w/proof Implanted On Prior R Admission?: No Date: 10/22/17 Results: 0 mm PPD to be Administered?: No - Reproductive History Patient is a Female of Child Bearing Age (11 -55 yrs old): Yes Last Menstrual Period: 09/30/17 Patient : No - Smoking Cessation Smoking history: Never smoked Have you smoked in the past 12 months: No Aproximately how many cigarettes per day: 0 Cigars Per Day: 0 Hx Chewing Tobacco Use: No Initiated information on smoking cessation: No - Substance & Tx. History Hx Alcohol Use: Yes Hx Substance Use: Yes Substance Use Type: Alcohol, Cocaine Hx Substance Use Treatment: Yes ([place] last detox 2 weeks ago ) - Substances Abused Alcohol Route: Oral Frequency: Daily Amount used: 1/2 liter of vodka Age of first use: 35 Date of Last Use: 06/21/18 Cocaine Route: Smoking Frequency: Daily Amount used: $20 Age of first use: 45 Date of Last Use: 06/21/18 Family Disease History - Family Disease History Family Disease History: Diabetes: Grandparent (alcohol), Father (alive: 68: HTN) , Mother (alive: 67), Other: Grandparent, Father, Mother Admission Physical Exam BHS - Vital Signs Vital Signs: Vital Signs - 24 hr 06/22/18 11:01 Temperature 97.5 F L Pulse Rate 88 Respiratory 20 Rate Blood Pressure 144/82 - Physical General Appearance: Yes: Disheveled, Anxious HEENTM: Yes: EOMI, Hearing grossly Normal, Normal ENT Inspection, Normocephalic , Normal Voice, HIGINIO, Pharynx Normal, Tm's normal Respiratory: Yes: Chest Non-Tender, Lungs Clear, Normal Breath Sounds, No Respiratory Distress, No Accessory Muscle Use Neck: Yes: Within Normal Limits Breast: Yes: Breast Exam Deferred Cardiology: Yes: Regular Rhythm, Regular Rate, Murmur Abdominal: Yes: Normal Bowel Sounds, Non Tender, Flat, Soft Genitourinary: Yes: Within Normal Limits Back: Yes: Normal Inspection Musculoskeletal: Yes: Within Normal Limits Extremities: Yes: Normal Capillary Refill, Normal Inspection, Normal Range of Motion, Non-Tender 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: 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: 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, Fully Oriented, Alert, Motor Strength 5/5, Normal Response, Depressed Affect (flat affect) Integumentary: Yes: Normal Color, Dry, Warm Lymphatic: Yes: Within Normal Limits - Diagnostic (1) History of CT (myocardial infarction) Current Visit: Yes Status: Chronic (2) Alcohol abuse Current Visit: Yes Status: Acute (3) Chronic liver disease and cirrhosis Current Visit: Yes Status: Chronic (4) Cocaine dependence Current Visit: Yes Status: Chronic Qualifiers: Substance use status: uncomplicated Qualified Code(s): F14.20 - Cocaine dependence, uncomplicated (5) Diabetes mellitus, insulin dependent (IDDM), uncontrolled Current Visit: Yes Status: Chronic Qualifiers: Diabetes mellitus complication status: without complication Qualified Code( s): E10.65 - Type 1 diabetes mellitus with hyperglycemia (6) GERD (gastroesophageal reflux disease) Current Visit: Yes Status: Chronic Qualifiers: Esophagitis presence: without esophagitis Qualified Code(s): K21.9 - Gastro -esophageal reflux disease without esophagitis (7) Hypertension Current Visit: Yes Status: Chronic Qualifiers: Hypertension type: essential hypertension Qualified Code(s): I10 - Essential (primary) hypertension BHS Breath Alcohol Content Breath Alcohol Content: 0 Urine Pregancy Test - Result Urine Test Results: Negative- NO Line Present Urine Drug Screen - Results Drug Screen Negative: No Urine Drug Screen Results: DEEPAK-Cocaine, BZO-Benzodiazepines Inpatient Rehab Admission - Initial Determination Are CD services needed?: Yes Free of communicable disease: Yes Not in need of hospitalization: Yes - Rehab Admission Criteria Previous failed treatment: Yes Poor recovery environment: Yes Comorbidities: Yes Lacks judgement: Yes Patient is meeting Inpatient Rehab admission criteria:: Yes
[2018-06-22] MEDS ORDERED: LACTULOSE 20 GM/30 ML UDC (FOR ORAL USE ONLY) PO PRN (17:54)
[2018-06-22] MEDS ORDERED: MAG HYDROX/AL HYDROX/SIMETH 30 ML UNIT-DOSE CUP PO PRN (18:03)
[2018-06-22] MEDS ORDERED: MAGNESIUM CITRATE 300 ML BOTTLE PO PRN (18:03)
[2018-06-22] MEDS ORDERED: P-EPHED 60MG/TRIPROLIDI 2.5MG TABLET PO PRN (18:03)
[2018-06-22] MEDS ORDERED: MAGNESIUM HYDROX 2400MG/30ML ORAL SUSPENSION 30 ML CUP PO PRN (18:03)
[2018-06-22] MEDS ORDERED: guaiFENesin/D-METHORPHAN HB 10 ML UNIT-DOSE CUPS PO PRN (18:03)
[2018-06-22] MEDS ORDERED: IBUPROFEN 400 MG TABLET (FP) PO PRN (18:03)
[2018-06-22] MEDS ORDERED: MENTHOL/PHENOL 1 EACH UD MM PRN (18:03)
[2018-06-22] MEDS ORDERED: ACETAMINOPHEN 325 MG TABLET (FP) PO PRN (18:03)
[2018-06-22 21:44] LABS: URINE APPEARANCE SLCLOUDY; URINE BILIRUBIN NEGATIVE (<2.0 mg/dL); URINE COLOR LTYELLOW; URINE GLUCOSE (UA) 3+ (NEGATIVE); URINE KETONE TRACE (NEGATIVE); URINE NITRITE NEGATIVE (NEGATIVE); URINE UROBILINOGEN NEGATIVE mg/dL (0.2-1.0)
[2018-06-22 21:45] LABS: URINE LEUK ESTERASE 2+ (NEGATIVE); URINE PROTEIN 2+ (NEGATIVE)
[2018-06-22 21:47] LABS: EPI CELLS FEW /HPF (FEW); URINE BACTERIA RARE /hpf (NONE SEEN); URINE MUCUS RARE; YEAST MANY
[2018-06-22] MEDS ORDERED: MELATONIN 5 MG TABLETS PO PRN (22:00)
[2018-06-22] MEDS: THIAMINE HCL 100 MG TABLET (FP) PO SCH (22:35)
[2018-06-22] MEDS: GABAPENTIN 400 MG CAPSULE (FP) PO SCH (22:35)
[2018-06-23] MEDS: GABAPENTIN 400 MG CAPSULE (FP) PO SCH ×3 (06:38→23:54)
[2018-06-23] MEDS ORDERED: INSULIN (NOVOLOG) ASPART 100 UNITS/ML 10ML VIAL ONE ×2 (06:50→11:46)
[2018-06-23] MEDS: INSULIN SLIDING SCALE (NOVOLOG) 1 VIAL SQ SCH ×3 (06:52→23:57)
[2018-06-23] MEDS ORDERED: INSULIN SLIDING SCALE (NOVOLOG) 1 VIAL SQ SCH ×3 (07:00→16:30)
[2018-06-23] MEDS: PRENATAL VITAMINS W/ FOLIC ACID TABLET (FP) PO SCH (10:02)
[2018-06-23] MEDS: PANTOPRAZOLE 40 MG TABLET (FP) PO SCH (10:02)
[2018-06-23] MEDS: LISINOPRIL 10 MG TABLET (FP) PO SCH (10:02)
--- NOTE | 2018-06-23 13:57 | EKG ---
Test Reason : Blood Pressure : / mmHG Vent. Rate : 086 BPM Atrial Rate : 086 BPM P-R Int : 136 ms QRS Dur : 076 ms QT Int : 402 ms P-R-T Axes : 065 039 050 degrees QTc Int : 481 ms NORMAL SINUS RHYTHM POSSIBLE LEFT ATRIAL ENLARGEMENT LEFT VENTRICULAR HYPERTROPHY PROLONGED QT ABNORMAL ECG WHEN COMPARED WITH ECG OF 22-JUN-2018 14:42, NO SIGNIFICANT CHANGE WAS FOUND Confirmed by Dilip Bass MD ([id number]) on 06/23/2018 1:57:12 PM Referred By: Confirmed By:Dilip Bass MD
--- NOTE | 2018-06-23 14:41 | PN ---
[facility] Progress Note Note: Vital Signs Temperature 98.0 F 06/23/18 06:49 Pulse Rate 89 06/23/18 10:00 Respiratory Rate 18 06/23/18 10:00 Blood Pressure 121/83 06/23/18 10:00 O2 Sat by Pulse Oximetry (%) Laboratory Last Values POC Glucometer 259 UNITS (80-120) 06/22/18 17:50 Urine Color Ltyellow 06/22/18 21:00 Urine Appearance Slcloudy 06/22/18 21:00 Urine pH 6.0 (5.0-8.0) 06/22/18 21:00 Ur Specific [place] 1.029 (1.001-1.035) 06/22/18 21:00 Urine Protein 2+ (NEGATIVE) H 06/22/18 21:00 Urine Glucose (UA) 3+ (NEGATIVE) H 06/22/18 21:00 Urine Ketones Trace (NEGATIVE) H 06/22/18 21:00 Urine Blood 3+ (NEGATIVE) H 06/22/18 21:00 Urine Nitrite Negative (NEGATIVE) 06/22/18 21:00 Urine Bilirubin Negative (<2.0 mg/dL) 06/22/18 21:00 Urine Urobilinogen Negative mg/dL (0.2-1.0) 06/22/18 21:00 Ur Leukocyte Esterase 2+ (NEGATIVE) H 06/22/18 21:00 Urine WBC (Auto) 14 /hpf (3-5) 06/22/18 21:00 Urine RBC (Auto) 16 /hpf (0-3) 06/22/18 21:00 Ur Epithelial Cells Few /HPF (FEW) 06/22/18 21:00 Urine Bacteria Rare /hpf (NONE SEEN) 06/22/18 21:00 Urine Mucus Rare 06/22/18 21:00 Urine Yeast Many 06/22/18 21:00 Patient with hx of DM II since age 14 yo. Patient was given 12 units of insulin or earlier high reading, next BGM check scheduled for today 16:30. Patient denies any urinary symptoms at this time or pain . c/o of difficulty sleeping and anxiety. A/P AOx3 no distress no adventitious breath sounds s1 s2 no JVD full ROM ambulating independently without difficulty skin intact, no edema or erythema - DM II, with hyperglycemia - abnormal U/A Plan: repeat U/A and urine culture increase fluids follow with psych re: anxiety and insomnia continue to monitor
--- NOTE | 2018-06-23 15:17 | HP ---
Psychiatrist Admission - Data Date of interview: 06/23/18 Admission source: [facility] Identifying data: Patient is a 47 year old single female, , mother of six, unemployed, homeless, and supported by [facility]. This is one of multiple admissions to rehab. Pt. admitted to [facility] for alcohol and crack dependence. Medical History: Diabetes, hypertension, neuropathy, Acid Reflux Psychiatric History: Patient's first psychiatric contact was at [facility] in 2014 for alcohol dependence. Pt. was prescribed mirtzapine and trazodone. Pt. reports one psychiatric hospitalization at [facility] three weeks ago for depression. Pt. was prescribed mirtzapine 30mg qhs + Trazodone 150mg. Pt. was given a prescription of trazdone and mirtzapine but reports not picking it up. Reports most recently taking mirtzapine and trazodone 3 weeks ago. Pt. denies h/o suicide attempt. Physical/Sexual Abuse/Trauma History: Denies. Vital Signs: Vital Signs - 24 hr 06/23/18 06/23/18 06/23/18 00:30 03:30 06:49 Temperature 98.0 F Pulse Rate 90 Respiratory 18 18 16 Rate Blood Pressure 145/88 06/23/18 10:00 Temperature Pulse Rate 89 Respiratory 18 Rate Blood Pressure 121/83 Allergies/Adverse Reactions: Allergies Allergy/AdvReac Type Severity Reaction Status Date / Time fish derived Allergy Severe Swelling Verified 06/22/18 12:25 shellfish derived Allergy Severe Swelling Verified 06/22/18 12:25 No Known Drug Allergies Allergy Verified 06/22/18 12:25 SEAFOOD Allergy Severe Swelling Uncoded 06/22/18 12:25 Date of last physical exam: 06/22/18 Concur with the findings of this exam: Yes - Substance Abuse/Tx History Hx Alcohol Use: Yes (1/2 liter daily. ) Hx Substance Use: Yes ($10 per day) Substance Use Type: Cocaine Hx Substance Use Treatment: Yes (Rehab in [facility] in December of 2017) Mental Status Exam - Mental Status Exam Alert and Oriented to: Time, Place, Person Cognitive Function: Good Patient Appearance: Well Groomed Mood: Hopeful Affect: Mood Congruent Patient Behavior: Appropriate, Cooperative Speech Pattern: Clear, Appropriate Voice Loudness: Normal Thought Process: Intact, Goal Oriented Thought Disorder: Not Present Hallucinations: Denies Suicidal Ideation: Denies Homicidal Ideation: Denies Insight/Judgement: Poor Sleep: Poorly Appetite: Fair Muscle strength/Tone: Normal Gait/Station: Normal Psychiatric Findings - Problem List ([place] 1, 2,3) (1) Alcohol dependence Current Visit: Yes Status: Acute (2) Cocaine dependence Current Visit: Yes Status: Acute (3) Nicotine dependence Current Visit: Yes Status: Chronic Qualifiers: Nicotine product type: cigarettes Substance use status: uncomplicated Qualified Code(s): F17.210 - Nicotine dependence, cigarettes, uncomplicated (4) Alcohol-induced mood disorder Current Visit: Yes Status: Suspected (5) Alcohol-induced sleep disorder Current Visit: Yes Status: Acute - Initial Treatment Plan Initial Treatment Plan: Psychoeducation provided. Rehab in progress. Trazodone 100mg qhs + Mirtzapine 15mg qhs. Benefits and side effects discussed. Verbal consent given.
--- NOTE | 2018-06-23 18:18 | PN ---
[facility] Progress Note Note: Vital Signs Temperature 98.0 F 06/23/18 06:49 Pulse Rate 89 06/23/18 10:00 Respiratory Rate 18 06/23/18 10:00 Blood Pressure 121/83 06/23/18 10:00 O2 Sat by Pulse Oximetry (%) Laboratory Last Values POC Glucometer > 600 UNITS (80-120) 06/23/18 11:45 Urine Color Ltyellow 06/22/18 21:00 Urine Appearance Slcloudy 06/22/18 21:00 Urine pH 6.0 (5.0-8.0) 06/22/18 21:00 Ur Specific [place] 1.029 (1.001-1.035) 06/22/18 21:00 Urine Protein 2+ (NEGATIVE) H 06/22/18 21:00 Urine Glucose (UA) 3+ (NEGATIVE) H 06/22/18 21:00 Urine Ketones Trace (NEGATIVE) H 06/22/18 21:00 Urine Blood 3+ (NEGATIVE) H 06/22/18 21:00 Urine Nitrite Negative (NEGATIVE) 06/22/18 21:00 Urine Bilirubin Negative (<2.0 mg/dL) 06/22/18 21:00 Urine Urobilinogen Negative mg/dL (0.2-1.0) 06/22/18 21:00 Ur Leukocyte Esterase 2+ (NEGATIVE) H 06/22/18 21:00 Urine WBC (Auto) 14 /hpf (3-5) 06/22/18 21:00 Urine RBC (Auto) 16 /hpf (0-3) 06/22/18 21:00 Ur Epithelial Cells Few /HPF (FEW) 06/22/18 21:00 Urine Bacteria Rare /hpf (NONE SEEN) 06/22/18 21:00 Urine Mucus Rare 06/22/18 21:00 Urine Yeast Many 06/22/18 21:00 patient with elevated BGM Patient reports no symptoms, no pain, vertigo, SOB, paresthesia, reports high reading are normal for her. Patient AOx3, no distress no JVD, + heart murmur no adventitious breath sounds neg neuro skin intact, no edema or erythema - hyperglycemia Plan: time dose of 12 units novolog ordered, recheck BGM one hour post administering insulin dose increase PO fluids increase sliding scale from TID to QID increase BGM check from TID to QID dietary consult ordered if no improvement in BGM, patient will be sent to [facility] for further evaluation Continue to monitor
--- NOTE | 2018-06-23 20:34 | PN ---
[facility] Progress Note Note: BGM on glucometer continues to re: HIGH. Patient AOx3 no distress, no symptoms reported no changed in LOC full ROM no skin changes Patient sent top [facility] for further evaluation endorsed to Dr. moses Pleitez
[2018-06-23] MEDS: traZODone HCL 100 MG TABLET (FP) PO SCH (23:54)
[2018-06-23] MEDS: THIAMINE HCL 100 MG TABLET (FP) PO SCH (23:55)
[2018-06-23] MEDS: MIRTAZAPINE 15 MG TABLET (FP) PO SCH (23:57)
[2018-06-24] MEDS: INSULIN SLIDING SCALE (NOVOLOG) 1 VIAL SQ SCH ×3 (07:35→16:37)
[2018-06-24] MEDS: GABAPENTIN 400 MG CAPSULE (FP) PO SCH ×3 (07:35→21:16)
[2018-06-24] MEDS ORDERED: INSULIN (NOVOLOG) ASPART 100 UNITS/ML 10ML VIAL ONE ×3 (07:45→16:36)
--- NOTE | 2018-06-24 07:47 | PN ---
S Progress Note Note: RETURNED FROM [facility] AFTER BEING TREATED FOR ELEVATED BLOOD GLUCOSE PER CLIENT SHE IS ON GLARGINE 50 UNITS AT HOME. PER PHARMACY LEVEMIR IS COMPATIBLE WILL RESTART CLIENT ON LEVEMIR 50 UNITS SQ HS SLIDING SCALE CHANGED TO TIDAC
[2018-06-24 09:53] LABS: URINE APPEARANCE CLEAR; URINE BILIRUBIN NEGATIVE (<2.0 mg/dL); URINE COLOR LTYELLOW; URINE GLUCOSE (UA) NEGATIVE (NEGATIVE); URINE KETONE NEGATIVE (NEGATIVE); URINE LEUK ESTERASE NEGATIVE (NEGATIVE); URINE NITRITE NEGATIVE (NEGATIVE); URINE UROBILINOGEN NEGATIVE mg/dL (0.2-1.0)
[2018-06-24 09:59] LABS: URINE PROTEIN 1+ (NEGATIVE)
[2018-06-24] MEDS: LISINOPRIL 10 MG TABLET (FP) PO SCH (09:59)
[2018-06-24] MEDS: PRENATAL VITAMINS W/ FOLIC ACID TABLET (FP) PO SCH (09:59)
[2018-06-24] MEDS: PANTOPRAZOLE 40 MG TABLET (FP) PO SCH (10:00)
[2018-06-24 10:02] LABS: EPI CELLS RARE /HPF (FEW); URINE MUCUS RARE; YEAST RARE
--- NOTE | 2018-06-24 14:42 | PN ---
[facility] Progress Note Note: PATIENT SEEN FOR ELEVATED BLOOD SUGAR OF 445. WAS SENT LAST NIGHT TO ER FOR HYPERGLYCEMIA. RETURNED TO UNIT THIS MORNING. PATIENT ON SLIDING SCALE AND LEVEMIR 50 UNITS WHICH IS WHAT SHE WAS TAKING AT HOME. PATIENT DENIES DIZZINESS , HEADACHE, SHAKING AND SWEATING AT THIS TIME. ALERT AND ORIENTED X 3. Vital Signs Temperature 97.9 F 06/24/18 07:34 Pulse Rate 90 06/24/18 09:44 Respiratory Rate 18 06/24/18 07:34 Blood Pressure 126/84 06/24/18 09:44 O2 Sat by Pulse Oximetry (%) Laboratory Tests 06/22/18 06/22/18 06/22/18 11:02 17:50 21:00 POC Glucometer 370 259 Urine Color Ltyellow Urine Appearance Slcloudy Urine pH 6.0 Ur Specific [place] 1.029 Urine Protein 2+ H Urine Glucose (UA) 3+ H Urine Ketones Trace H Urine Blood 3+ H Urine Nitrite Negative Urine Bilirubin Negative Urine Urobilinogen Negative Ur Leukocyte Esterase 2+ H Urine WBC (Auto) 14 Urine RBC (Auto) 16 Ur Epithelial Cells Few Urine Bacteria Rare Urine Mucus Rare Urine Yeast Many RPR Titer 06/23/18 06/23/18 06/23/18 09:30 11:45 16:43 POC Glucometer > 600 > 600 Urine Color Urine Appearance Urine pH Ur Specific [place] Urine Protein Urine Glucose (UA) Urine Ketones Urine Blood Urine Nitrite Urine Bilirubin Urine Urobilinogen Ur Leukocyte Esterase Urine WBC (Auto) Urine RBC (Auto) Ur Epithelial Cells Urine Bacteria Urine Mucus Urine Yeast RPR Titer Nonreactive 06/23/18 06/23/18 06/24/18 17:29 18:47 07:33 POC Glucometer > 600 > 600 155 Urine Color Urine Appearance Urine pH Ur Specific [place] Urine Protein Urine Glucose (UA) Urine Ketones Urine Blood Urine Nitrite Urine Bilirubin Urine Urobilinogen Ur Leukocyte Esterase Urine WBC (Auto) Urine RBC (Auto) Ur Epithelial Cells Urine Bacteria Urine Mucus Urine Yeast RPR Titer 06/24/18 06/24/18 08:20 11:34 POC Glucometer 445 Urine Color Ltyellow Urine Appearance Clear Urine pH 5.0 D Ur Specific [place] 1.009 Urine Protein 1+ H Urine Glucose (UA) Negative Urine Ketones Negative Urine Blood 1+ H Urine Nitrite Negative Urine Bilirubin Negative Urine Urobilinogen Negative Ur Leukocyte Esterase Negative Urine WBC (Auto) None Urine RBC (Auto) None Ur Epithelial Cells Rare Urine Bacteria Urine Mucus Rare Urine Yeast Rare RPR Titer PE: GENERAL: ALERT AND ORIENTED X 3. IN NAD. SKIN: WARM AND DRY, INTACT CAR: S1S2 RESP: CTA BL EXT: NO EDEMA A/P: REPEAT BS AFTER COVERAGE 380 WILL CONTINUE WITH LEVEMIR 50 UNITS HS BUT HOLD FOR BS 200 OR LESS CONTINUE TO MONITOR CLINICALLY.
[2018-06-24] MEDS: traZODone HCL 100 MG TABLET (FP) PO SCH (21:16)
[2018-06-24] MEDS: THIAMINE HCL 100 MG TABLET (FP) PO SCH (21:16)
[2018-06-24] MEDS: MIRTAZAPINE 15 MG TABLET (FP) PO SCH (21:16)
[2018-06-24] MEDS: INSULIN (LEVEMIR) 100 UNITS/ML UNITS SQ SCH (21:19)
[2018-06-24] MEDS ORDERED: INSULIN (LEVEMIR) 100 UNITS/ML UNITS SQ SCH (22:00)
[2018-06-25] MEDS: GABAPENTIN 400 MG CAPSULE (FP) PO SCH ×3 (06:43→21:27)
[2018-06-25] MEDS: INSULIN SLIDING SCALE (NOVOLOG) 1 VIAL SQ SCH ×3 (06:44→17:05)
[2018-06-25] MEDS: PRENATAL VITAMINS W/ FOLIC ACID TABLET (FP) PO SCH (09:40)
[2018-06-25] MEDS: PANTOPRAZOLE 40 MG TABLET (FP) PO SCH (09:40)
[2018-06-25] MEDS: LISINOPRIL 10 MG TABLET (FP) PO SCH (09:40)
[2018-06-25] MEDS ORDERED: INSULIN (NOVOLOG) ASPART 100 UNITS/ML 10ML VIAL ONE ×2 (11:50→14:41)
[2018-06-25] MEDS ORDERED: INSULIN (NOVOLOG) ASPART 100 UNITS/ML 10ML VIAL SQ ONE (14:36)
--- NOTE | 2018-06-25 14:38 | PN ---
[facility] Progress Note Note: Vital Signs Temperature 98.2 F 06/25/18 07:09 Pulse Rate 105 H 06/25/18 09:13 Respiratory Rate 18 06/25/18 07:09 Blood Pressure 143/86 06/25/18 09:13 O2 Sat by Pulse Oximetry (%) Laboratory Last Values POC Glucometer 517 UNITS (80-120) 06/25/18 11:43 Urine Color Ltyellow 06/24/18 08:20 Urine Appearance Clear 06/24/18 08:20 Urine pH 5.0 (5.0-8.0) D 06/24/18 08:20 Ur Specific [place] 1.009 (1.001-1.035) 06/24/18 08:20 Urine Protein 1+ (NEGATIVE) H 06/24/18 08:20 Urine Glucose (UA) Negative (NEGATIVE) 06/24/18 08:20 Urine Ketones Negative (NEGATIVE) 06/24/18 08:20 Urine Blood 1+ (NEGATIVE) H 06/24/18 08:20 Urine Nitrite Negative (NEGATIVE) 06/24/18 08:20 Urine Bilirubin Negative (<2.0 mg/dL) 06/24/18 08:20 Urine Urobilinogen Negative mg/dL (0.2-1.0) 06/24/18 08:20 Ur Leukocyte Esterase Negative (NEGATIVE) 06/24/18 08:20 Urine WBC (Auto) None /hpf (3-5) 06/24/18 08:20 Urine RBC (Auto) None /hpf (0-3) 06/24/18 08:20 Ur Epithelial Cells Rare /HPF (FEW) 06/24/18 08:20 Urine Bacteria Rare /hpf (NONE SEEN) 06/22/18 21:00 Urine Mucus Rare 06/24/18 08:20 Urine Yeast Rare 06/24/18 08:20 RPR Titer Nonreactive (NONREACTIVE) 06/23/18 09:30 Report received from VASYL Kelly patient's Last BGM 589, asymptomatic one time dose novolog 10 units STAT increase fluids continue to monitor
[2018-06-25] MEDS: traZODone HCL 100 MG TABLET (FP) PO SCH (21:27)
[2018-06-25] MEDS: THIAMINE HCL 100 MG TABLET (FP) PO SCH (21:27)
[2018-06-25] MEDS: MIRTAZAPINE 15 MG TABLET (FP) PO SCH (21:27)
[2018-06-25] MEDS: INSULIN (LEVEMIR) 100 UNITS/ML UNITS SQ SCH (21:28)
[2018-06-25] MEDS ORDERED: INSULIN (LEVEMIR) 100 UNITS/ML UNITS SQ ONE (23:31)
[2018-06-26] MEDS: GABAPENTIN 400 MG CAPSULE (FP) PO SCH ×3 (06:39→21:11)
[2018-06-26] MEDS ORDERED: INSULIN (NOVOLOG) ASPART 100 UNITS/ML 10ML VIAL ONE ×4 (06:58→22:15)
[2018-06-26] MEDS: INSULIN SLIDING SCALE (NOVOLOG) 1 VIAL SQ SCH ×2 (07:59→16:31)
[2018-06-26] MEDS: LISINOPRIL 10 MG TABLET (FP) PO SCH (10:17)
[2018-06-26] MEDS: PRENATAL VITAMINS W/ FOLIC ACID TABLET (FP) PO SCH (10:17)
[2018-06-26] MEDS: PANTOPRAZOLE 40 MG TABLET (FP) PO SCH (10:17)
--- NOTE | 2018-06-26 13:23 | PN ---
[facility] Progress Note Note: Vital Signs Temperature 98.2 F 06/26/18 07:10 Pulse Rate 97 H 06/26/18 09:08 Respiratory Rate 18 06/26/18 07:10 Blood Pressure 118/80 06/26/18 09:08 O2 Sat by Pulse Oximetry (%) 06/24/18 08:20 Urine Culture - Final Urine - Urine Clean Catch NO GROWTH OBTAINED Laboratory Last Values POC Glucometer > 600 UNITS (80-120) 06/26/18 11:15 Urine Color Ltyellow 06/24/18 08:20 Urine Appearance Clear 06/24/18 08:20 Urine pH 5.0 (5.0-8.0) D 06/24/18 08:20 Ur Specific [place] 1.009 (1.001-1.035) 06/24/18 08:20 Urine Protein 1+ (NEGATIVE) H 06/24/18 08:20 Urine Glucose (UA) Negative (NEGATIVE) 06/24/18 08:20 Urine Ketones Negative (NEGATIVE) 06/24/18 08:20 Urine Blood 1+ (NEGATIVE) H 06/24/18 08:20 Urine Nitrite Negative (NEGATIVE) 06/24/18 08:20 Urine Bilirubin Negative (<2.0 mg/dL) 06/24/18 08:20 Urine Urobilinogen Negative mg/dL (0.2-1.0) 06/24/18 08:20 Ur Leukocyte Esterase Negative (NEGATIVE) 06/24/18 08:20 Urine WBC (Auto) None /hpf (3-5) 06/24/18 08:20 Urine RBC (Auto) None /hpf (0-3) 06/24/18 08:20 Ur Epithelial Cells Rare /HPF (FEW) 06/24/18 08:20 Urine Bacteria Rare /hpf (NONE SEEN) 06/22/18 21:00 Urine Mucus Rare 06/24/18 08:20 Urine Yeast Rare 06/24/18 08:20 RPR Titer Nonreactive (NONREACTIVE) 06/23/18 09:30 Patient is non-adherent with diet on the unit. Patient educated on importance to adhere to diet and meds and if any concerns arise to notify staff. Patient verbalizes understanding. 12 units of novolog order, repeat BGM one hour after increase fluids continue to monitor
[2018-06-26] MEDS ORDERED: INSULIN (NOVOLOG) ASPART 100 UNITS/ML 10ML VIAL SQ ONE ×2 (13:36→22:15)
[2018-06-26] MEDS ORDERED: PT OWN MED DRAWER 7, Y5N ONE (21:09)
[2018-06-26] MEDS: traZODone HCL 100 MG TABLET (FP) PO SCH (21:11)
[2018-06-26] MEDS: THIAMINE HCL 100 MG TABLET (FP) PO SCH (21:11)
[2018-06-26] MEDS: MIRTAZAPINE 15 MG TABLET (FP) PO SCH (21:11)
[2018-06-26] MEDS: INSULIN (LEVEMIR) 100 UNITS/ML UNITS SQ SCH (21:12)
[2018-06-27] MEDS ORDERED: INSULIN (NOVOLOG) ASPART 100 UNITS/ML 10ML VIAL ONE ×3 (04:58→23:51)
[2018-06-27] MEDS: GABAPENTIN 400 MG CAPSULE (FP) PO SCH ×3 (06:19→21:04)
[2018-06-27] MEDS: INSULIN SLIDING SCALE (NOVOLOG) 1 VIAL SQ SCH ×4 (06:21→17:03)
[2018-06-27] MEDS ORDERED: PT OWN MED DRAWER 7, Y5N ONE (08:41)
[2018-06-27] MEDS: LISINOPRIL 10 MG TABLET (FP) PO SCH (09:47)
[2018-06-27] MEDS: PRENATAL VITAMINS W/ FOLIC ACID TABLET (FP) PO SCH (09:47)
[2018-06-27] MEDS: PANTOPRAZOLE 40 MG TABLET (FP) PO SCH (09:47)
[2018-06-27] MEDS: LOPERAMIDE HCL 2 MG CAPSULE PO PRN (15:47)
[2018-06-27] MEDS: MIRTAZAPINE 15 MG TABLET (FP) PO SCH (21:04)
[2018-06-27] MEDS: THIAMINE HCL 100 MG TABLET (FP) PO SCH (21:04)
[2018-06-27] MEDS: traZODone HCL 100 MG TABLET (FP) PO SCH (21:04)
[2018-06-27] MEDS: INSULIN (LEVEMIR) 100 UNITS/ML UNITS SQ SCH (21:05)
[2018-06-27] MEDS ORDERED: INSULIN (NOVOLOG) ASPART 100 UNITS/ML 10ML VIAL SQ ONE (23:39)
--- NOTE | 2018-06-27 23:48 | PN ---
S Progress Note Note: regular insulin 14 units for bgm of 519mg/dl client is also on levemir 50 units at hs
[2018-06-28] MEDS: GABAPENTIN 400 MG CAPSULE (FP) PO SCH ×3 (06:15→21:06)
--- NOTE | 2018-06-28 06:52 | PN ---
[facility] Progress Note Note: poorly controlled diabetic. bgm averaging in the 500's despite coverage and overnight levemir. hx/o shows client has been on levemir bid ( 50 units bid 03/2017) will initiate levemir 10 units qam continue sliding scale and levemir 50 units qhs as ordered bgm ac/hs continue to moniotr clinically Laboratory Tests 06/22/18 06/22/18 06/22/18 11:02 17:50 21:00 POC Glucometer 370 259 Fasting Glucose Hemoglobin A1c % Urine Color Ltyellow Urine Appearance Slcloudy Urine pH 6.0 Ur Specific Young 1.029 Urine Protein 2+ H Urine Glucose (UA) 3+ H Urine Ketones Trace H Urine Blood 3+ H Urine Nitrite Negative Urine Bilirubin Negative Urine Urobilinogen Negative Ur Leukocyte Esterase 2+ H Urine WBC (Auto) 14 Urine RBC (Auto) 16 Ur Epithelial Cells Few Urine Bacteria Rare Urine Mucus Rare Urine Yeast Many RPR Titer 06/23/18 06/23/18 06/23/18 09:30 11:45 16:43 POC Glucometer > 600 > 600 Fasting Glucose Hemoglobin A1c % Urine Color Urine Appearance Urine pH Ur Specific Young Urine Protein Urine Glucose (UA) Urine Ketones Urine Blood Urine Nitrite Urine Bilirubin Urine Urobilinogen Ur Leukocyte Esterase Urine WBC (Auto) Urine RBC (Auto) Ur Epithelial Cells Urine Bacteria Urine Mucus Urine Yeast RPR Titer Nonreactive 06/23/18 06/23/18 06/24/18 17:29 18:47 07:33 POC Glucometer > 600 > 600 155 Fasting Glucose Hemoglobin A1c % Urine Color Urine Appearance Urine pH Ur Specific Young Urine Protein Urine Glucose (UA) Urine Ketones Urine Blood Urine Nitrite Urine Bilirubin Urine Urobilinogen Ur Leukocyte Esterase Urine WBC (Auto) Urine RBC (Auto) Ur Epithelial Cells Urine Bacteria Urine Mucus Urine Yeast RPR Titer 06/24/18 06/24/18 06/24/18 08:20 11:34 14:24 POC Glucometer 445 380 Fasting Glucose Hemoglobin A1c % Urine Color Ltyellow Urine Appearance Clear Urine pH 5.0 D Ur Specific Young 1.009 Urine Protein 1+ H Urine Glucose (UA) Negative Urine Ketones Negative Urine Blood 1+ H Urine Nitrite Negative Urine Bilirubin Negative Urine Urobilinogen Negative Ur Leukocyte Esterase Negative Urine WBC (Auto) None Urine RBC (Auto) None Ur Epithelial Cells Rare Urine Bacteria Urine Mucus Rare Urine Yeast Rare RPR Titer 06/24/18 06/24/18 06/25/18 16:37 21:18 06:38 POC Glucometer 600 521 446 Fasting Glucose Hemoglobin A1c % Urine Color Urine Appearance Urine pH Ur Specific Young Urine Protein Urine Glucose (UA) Urine Ketones Urine Blood Urine Nitrite Urine Bilirubin Urine Urobilinogen Ur Leukocyte Esterase Urine WBC (Auto) Urine RBC (Auto) Ur Epithelial Cells Urine Bacteria Urine Mucus Urine Yeast RPR Titer 06/25/18 06/25/18 06/25/18 11:43 14:13 17:03 POC Glucometer 517 589 > 600 Fasting Glucose Hemoglobin A1c % Urine Color Urine Appearance Urine pH Ur Specific Young Urine Protein Urine Glucose (UA) Urine Ketones Urine Blood Urine Nitrite Urine Bilirubin Urine Urobilinogen Ur Leukocyte Esterase Urine WBC (Auto) Urine RBC (Auto) Ur Epithelial Cells Urine Bacteria Urine Mucus Urine Yeast RPR Titer 06/25/18 06/26/18 06/26/18 21:25 06:38 11:15 POC Glucometer > 600 466 > 600 Fasting Glucose Hemoglobin A1c % Urine Color Urine Appearance Urine pH Ur Specific Young Urine Protein Urine Glucose (UA) Urine Ketones Urine Blood Urine Nitrite Urine Bilirubin Urine Urobilinogen Ur Leukocyte Esterase Urine WBC (Auto) Urine RBC (Auto) Ur Epithelial Cells Urine Bacteria Urine Mucus Urine Yeast RPR Titer 06/27/18 06/27/18 06/27/18 01:16 08:00 08:00 POC Glucometer 519 Fasting Glucose 485 H* Hemoglobin A1c % 10.7 H Urine Color Urine Appearance Urine pH Ur Specific Young Urine Protein Urine Glucose (UA) Urine Ketones Urine Blood Urine Nitrite Urine Bilirubin Urine Urobilinogen Ur Leukocyte Esterase Urine WBC (Auto) Urine RBC (Auto) Ur Epithelial Cells Urine Bacteria Urine Mucus Urine Yeast RPR Titer
[2018-06-28] MEDS: INSULIN (LEVEMIR) 100 UNITS/ML UNITS SQ SCH ×2 (07:50→21:08)
[2018-06-28] MEDS: INSULIN SLIDING SCALE (NOVOLOG) 1 VIAL SQ SCH ×3 (07:50→16:46)
[2018-06-28] MEDS ORDERED: INSULIN (NOVOLOG) ASPART 100 UNITS/ML 10ML VIAL ONE ×3 (07:56→16:44)
[2018-06-28] MEDS: PRENATAL VITAMINS W/ FOLIC ACID TABLET (FP) PO SCH (09:26)
[2018-06-28] MEDS: LISINOPRIL 10 MG TABLET (FP) PO SCH (09:26)
[2018-06-28] MEDS: PANTOPRAZOLE 40 MG TABLET (FP) PO SCH (09:26)
[2018-06-28] MEDS: LOPERAMIDE HCL 2 MG CAPSULE PO PRN (14:34)
[2018-06-28] MEDS: IBUPROFEN 600 MG TABLET (FP) PO PRN (17:53)
--- NOTE | 2018-06-28 18:10 | PN ---
[facility] Progress Note Note: Vital Signs Temperature 98.3 F 06/28/18 06:53 Pulse Rate 92 H 06/28/18 09:17 Respiratory Rate 20 06/28/18 06:53 Blood Pressure 125/84 06/28/18 09:17 O2 Sat by Pulse Oximetry (%) Laboratory Last Values POC Glucometer 519 UNITS (80-120) 06/27/18 01:16 Fasting Glucose 485 mg/dL (70-105) H* 06/27/18 08:00 Hemoglobin A1c % 10.7 % (4.8-6.0) H 06/27/18 08:00 Urine Color Ltyellow 06/24/18 08:20 Urine Appearance Clear 06/24/18 08:20 Urine pH 5.0 (5.0-8.0) D 06/24/18 08:20 Ur Specific Noonan 1.009 (1.001-1.035) 06/24/18 08:20 Urine Protein 1+ (NEGATIVE) H 06/24/18 08:20 Urine Glucose (UA) Negative (NEGATIVE) 06/24/18 08:20 Urine Ketones Negative (NEGATIVE) 06/24/18 08:20 Urine Blood 1+ (NEGATIVE) H 06/24/18 08:20 Urine Nitrite Negative (NEGATIVE) 06/24/18 08:20 Urine Bilirubin Negative (<2.0 mg/dL) 06/24/18 08:20 Urine Urobilinogen Negative mg/dL (0.2-1.0) 06/24/18 08:20 Ur Leukocyte Esterase Negative (NEGATIVE) 06/24/18 08:20 Urine WBC (Auto) None /hpf (3-5) 06/24/18 08:20 Urine RBC (Auto) None /hpf (0-3) 06/24/18 08:20 Ur Epithelial Cells Rare /HPF (FEW) 06/24/18 08:20 Urine Bacteria Rare /hpf (NONE SEEN) 06/22/18 21:00 Urine Mucus Rare 06/24/18 08:20 Urine Yeast Rare 06/24/18 08:20 RPR Titer Nonreactive (NONREACTIVE) 06/23/18 09:30 Poorly controlled diabetic on levemir 10 units AM and 50 units qhs, with coverage TID . Patient c/o of headache, decrease appetite, diarrhea and body aches. Denies CP, vertigo, SOB. Patient Aox3 no distress no adventitious breath sounds no jvd full ROM ambulating in the unit Patient was given immonidun for diarrhea and ibuprofen for body aches Plan: increase fluids will continue to monitor
[2018-06-28] MEDS: THIAMINE HCL 100 MG TABLET (FP) PO SCH (21:06)
[2018-06-28] MEDS: MIRTAZAPINE 15 MG TABLET (FP) PO SCH (21:07)
[2018-06-28] MEDS: traZODone HCL 100 MG TABLET (FP) PO SCH (21:07)
[2018-06-28] MEDS ORDERED: PT OWN MED DRAWER 7, Y5N ONE (22:15)
[2018-06-28] MEDS ORDERED: INSULIN (NOVOLOG) ASPART 100 UNITS/ML 10ML VIAL SQ ONE (22:33)
[2018-06-29] MEDS: INSULIN (LEVEMIR) 100 UNITS/ML UNITS SQ SCH ×2 (06:23→21:36)
[2018-06-29] MEDS: GABAPENTIN 400 MG CAPSULE (FP) PO SCH ×3 (06:23→21:33)
[2018-06-29] MEDS: INSULIN SLIDING SCALE (NOVOLOG) 1 VIAL SQ SCH ×3 (06:56→16:59)
[2018-06-29] MEDS ORDERED: INSULIN (NOVOLOG) ASPART 100 UNITS/ML 10ML VIAL ONE ×3 (07:34→16:58)
[2018-06-29] MEDS: PRENATAL VITAMINS W/ FOLIC ACID TABLET (FP) PO SCH (09:54)
[2018-06-29] MEDS: LISINOPRIL 10 MG TABLET (FP) PO SCH (09:54)
[2018-06-29] MEDS: PANTOPRAZOLE 40 MG TABLET (FP) PO SCH (09:54)
[2018-06-29] MEDS: IBUPROFEN 600 MG TABLET (FP) PO PRN ×2 (09:55→21:32)
[2018-06-29] MEDS ORDERED: INSULIN (NOVOLOG) ASPART 100 UNITS/ML 10ML VIAL SQ ONE ×2 (11:55→13:54)
--- NOTE | 2018-06-29 11:57 | PN ---
[facility] Progress Note Note: Vital Signs Temperature 97.9 F 06/29/18 06:50 Pulse Rate 88 06/29/18 06:50 Respiratory Rate 18 06/29/18 06:50 Blood Pressure 127/84 06/29/18 06:50 O2 Sat by Pulse Oximetry (%) BGM assessed by VASYL Kelly re: High. One time dose of insulin 14 units ordered Repeat BGM in an hour increase fluids continue to monitor
[2018-06-29] MEDS ORDERED: PT OWN MED DRAWER 7, Y5N ONE (13:35)
--- NOTE | 2018-06-29 13:58 | PN ---
[facility] Progress Note Note: Vital Signs Temperature 97.9 F 06/29/18 06:50 Pulse Rate 88 06/29/18 06:50 Respiratory Rate 18 06/29/18 06:50 Blood Pressure 127/84 06/29/18 06:50 O2 Sat by Pulse Oximetry (%) Laboratory Last Values POC Glucometer 448 UNITS (80-120) 06/29/18 06:22 Fasting Glucose 485 mg/dL (70-105) H* 06/27/18 08:00 Hemoglobin A1c % 10.7 % (4.8-6.0) H 06/27/18 08:00 Urine Color Ltyellow 06/24/18 08:20 Urine Appearance Clear 06/24/18 08:20 Urine pH 5.0 (5.0-8.0) D 06/24/18 08:20 Ur Specific Morse 1.009 (1.001-1.035) 06/24/18 08:20 Urine Protein 1+ (NEGATIVE) H 06/24/18 08:20 Urine Glucose (UA) Negative (NEGATIVE) 06/24/18 08:20 Urine Ketones Negative (NEGATIVE) 06/24/18 08:20 Urine Blood 1+ (NEGATIVE) H 06/24/18 08:20 Urine Nitrite Negative (NEGATIVE) 06/24/18 08:20 Urine Bilirubin Negative (<2.0 mg/dL) 06/24/18 08:20 Urine Urobilinogen Negative mg/dL (0.2-1.0) 06/24/18 08:20 Ur Leukocyte Esterase Negative (NEGATIVE) 06/24/18 08:20 Urine WBC (Auto) None /hpf (3-5) 06/24/18 08:20 Urine RBC (Auto) None /hpf (0-3) 06/24/18 08:20 Ur Epithelial Cells Rare /HPF (FEW) 06/24/18 08:20 Urine Bacteria Rare /hpf (NONE SEEN) 06/22/18 21:00 Urine Mucus Rare 06/24/18 08:20 Urine Yeast Rare 06/24/18 08:20 RPR Titer Nonreactive (NONREACTIVE) 06/23/18 09:30 1:54 pm BGM read high Patient asymptomatic ambulating in the unit one time dose of novolog 16 units ordered Patient continues with high BGM AM levemir increase from 10 units to 12 units starting 7/31 Increase fluids continue to monitor If BGM continue high patient will be sent to [facility] for further eval
[2018-06-29] MEDS: LOPERAMIDE HCL 2 MG CAPSULE PO PRN (17:42)
[2018-06-29] MEDS: MIRTAZAPINE 15 MG TABLET (FP) PO SCH (21:33)
[2018-06-29] MEDS: THIAMINE HCL 100 MG TABLET (FP) PO SCH (21:33)
[2018-06-29] MEDS: traZODone HCL 100 MG TABLET (FP) PO SCH (21:33)
[2018-06-29] MEDS ORDERED: INSULIN (LEVEMIR) 100 UNITS/ML UNITS SQ ONE (22:34)
[2018-06-30] MEDS ORDERED: INSULIN (LEVEMIR) 100 UNITS/ML UNITS SQ ONE ×2 (05:59→23:02)
[2018-06-30] MEDS: GABAPENTIN 400 MG CAPSULE (FP) PO SCH ×3 (06:30→21:39)
[2018-06-30] MEDS: INSULIN SLIDING SCALE (NOVOLOG) 1 VIAL SQ SCH ×3 (07:55→17:05)
[2018-06-30] MEDS: INSULIN (LEVEMIR) 100 UNITS/ML UNITS SQ SCH ×2 (07:55→21:40)
[2018-06-30] MEDS: LISINOPRIL 10 MG TABLET (FP) PO SCH (10:02)
[2018-06-30] MEDS: PRENATAL VITAMINS W/ FOLIC ACID TABLET (FP) PO SCH (10:02)
[2018-06-30] MEDS: PANTOPRAZOLE 40 MG TABLET (FP) PO SCH (10:02)
[2018-06-30] MEDS ORDERED: INSULIN (NOVOLOG) ASPART 100 UNITS/ML 10ML VIAL ONE ×3 (11:52→23:02)
--- NOTE | 2018-06-30 17:39 | PN ---
[facility] Progress Note Note: Vital Signs Temperature 97.9 F 06/30/18 07:00 Pulse Rate 94 H 06/30/18 09:27 Respiratory Rate 18 06/30/18 07:00 Blood Pressure 117/80 06/30/18 09:27 O2 Sat by Pulse Oximetry (%) Laboratory Last Values POC Glucometer 351 UNITS (80-120) 06/30/18 06:29 Fasting Glucose 485 mg/dL (70-105) H* 06/27/18 08:00 Hemoglobin A1c % 10.7 % (4.8-6.0) H 06/27/18 08:00 Urine Color Ltyellow 06/24/18 08:20 Urine Appearance Clear 06/24/18 08:20 Urine pH 5.0 (5.0-8.0) D 06/24/18 08:20 Ur Specific Frederick 1.009 (1.001-1.035) 06/24/18 08:20 Urine Protein 1+ (NEGATIVE) H 06/24/18 08:20 Urine Glucose (UA) Negative (NEGATIVE) 06/24/18 08:20 Urine Ketones Negative (NEGATIVE) 06/24/18 08:20 Urine Blood 1+ (NEGATIVE) H 06/24/18 08:20 Urine Nitrite Negative (NEGATIVE) 06/24/18 08:20 Urine Bilirubin Negative (<2.0 mg/dL) 06/24/18 08:20 Urine Urobilinogen Negative mg/dL (0.2-1.0) 06/24/18 08:20 Ur Leukocyte Esterase Negative (NEGATIVE) 06/24/18 08:20 Urine WBC (Auto) None /hpf (3-5) 06/24/18 08:20 Urine RBC (Auto) None /hpf (0-3) 06/24/18 08:20 Ur Epithelial Cells Rare /HPF (FEW) 06/24/18 08:20 Urine Bacteria Rare /hpf (NONE SEEN) 06/22/18 21:00 Urine Mucus Rare 06/24/18 08:20 Urine Yeast Rare 06/24/18 08:20 RPR Titer Nonreactive (NONREACTIVE) 06/23/18 09:30 BGM at this time 555, patient schedule for 12 units of novolog ad additional 4 units order for total of 16 units increase fluids continue to monitor
[2018-06-30] MEDS ORDERED: INSULIN (NOVOLOG) ASPART 100 UNITS/ML 10ML VIAL SQ ONE (18:00)
[2018-06-30] MEDS: traZODone HCL 100 MG TABLET (FP) PO SCH (21:39)
[2018-06-30] MEDS: THIAMINE HCL 100 MG TABLET (FP) PO SCH (21:39)
[2018-06-30] MEDS: MIRTAZAPINE 15 MG TABLET (FP) PO SCH (21:39)
[2018-06-30] MEDS: IBUPROFEN 600 MG TABLET (FP) PO PRN (21:41)
[2018-07-01] MEDS ORDERED: PT OWN MED DRAWER 7, Y5N ONE (03:30)
[2018-07-01] MEDS: INSULIN SLIDING SCALE (NOVOLOG) 1 VIAL SQ SCH ×2 (06:22→12:12)
[2018-07-01] MEDS: INSULIN (LEVEMIR) 100 UNITS/ML UNITS SQ SCH (06:22)
[2018-07-01] MEDS: GABAPENTIN 400 MG CAPSULE (FP) PO SCH ×2 (06:24→13:58)
[2018-07-01] MEDS ORDERED: INSULIN (NOVOLOG) ASPART 100 UNITS/ML 10ML VIAL ONE ×2 (06:24→12:12)
[2018-07-01] MEDS: PRENATAL VITAMINS W/ FOLIC ACID TABLET (FP) PO SCH (09:59)
[2018-07-01] MEDS: PANTOPRAZOLE 40 MG TABLET (FP) PO SCH (09:59)
[2018-07-01] MEDS: LISINOPRIL 10 MG TABLET (FP) PO SCH (09:59)
[2018-07-01 12:25] VITALS: BP 144/89; PULSE 96; TEMP 98
--- NOTE | 2018-07-01 13:56 | PN ---
[facility] Progress Note Note: Vital Signs Temperature 98 F 07/01/18 11:55 Pulse Rate 96 H 07/01/18 11:55 Respiratory Rate 18 07/01/18 11:55 Blood Pressure 144/89 07/01/18 11:55 O2 Sat by Pulse Oximetry (%) Patient insist on leaving today although not medically recommended. Patient denies any symptoms at this time. Patient reports she will follow up at [facility] if she is not feeling well and her primary care physician by the end of the week. Patient reports she needs to go home because her mother is caring for her children and this facility is to far for her family to visit. Patient was made aware of the risk of leaving today, patient verbalizes understanding. Reinforced to patient signs and symptoms of worsening condition and follow up with the emergency department and to follow up with primary care physician before the end of the week. Patient verbalizes understanding.
--- NOTE | 2018-07-01 14:50 | PN ---
Psychiatric Progress Note Vital Signs: Vital Signs Period Temp Pulse Resp BP Sys/Resendez Pulse Ox Last 24 Hr 97.2 F-98 F 92-96 18-18 124-144/85-89 Date of Session: 07/01/18 Chief Complaint:: Discharge visit HPI: Patient addressed Alcohol,Cocaine dependence comorbid with Substance induced mood disorder. ROS: DM,Neuropathy,Liver cirrhosis. Current Medications: Active Medications Generic Name Dose Route Start Last Admin Trade Name Freq PRN Reason Stop Dose Admin Acetaminophen 650 mg 06/22/18 18:03 Tylenol - PO Q4H PRN FEVER Al Hydroxide/Mg Hydroxide 30 ml 06/22/18 18:03 Mylanta Oral Suspension - PO Q6H PRN DYSPEPSIA Eucalyptus/Menthol/Phenol/Sorbitol 1 each 06/22/18 18:03 Cepastat Lozenge - MM Q4H PRN SORE THROAT Gabapentin 400 mg 06/22/18 22:00 07/01/18 13:58 Neurontin - PO 400 mg TID SIRIA Administration Guaifenesin 10 ml 06/22/18 18:03 Robitussin Dm - PO Q6H PRN COUGH Ibuprofen 600 mg 06/28/18 15:38 06/30/18 21:41 Motrin - PO 600 mg Q6H PRN Administration Pain level 4-6 Insulin Aspart 1 vial 06/24/18 11:00 07/01/18 12:12 Novolog Vial Sliding Scale - SQ 12 units TIDAC SIRIA Administration Protocol Insulin Detemir 50 units 06/24/18 22:00 06/30/18 21:40 Levemir Vial SQ 50 units HS SIRIA Administration Insulin Detemir 12 units 06/30/18 07:00 07/01/18 06:22 Levemir Vial SQ 12 units DAILY@0700 SIRIA Administration Lactulose 20 gm 06/22/18 17:54 Cephulac (Oral Use) PO TID PRN CONSTIPATION Lisinopril 10 mg 06/23/18 10:00 07/01/18 09:59 Prinivil PO 10 mg DAILY SIRIA Administration Loperamide HCl 4 mg 06/22/18 18:03 06/29/18 17:42 Imodium - PO 4 mg Q6H PRN Administration DIARRHEA Magnesium Citrate 300 ml 06/22/18 18:03 Citroma - PO Q48H PRN CONSTIPATION Magnesium Hydroxide 30 ml 06/22/18 18:03 Milk Of Magnesia - PO DAILY PRN CONSTIPATION Melatonin 5 mg 06/22/18 22:00 Melatonin PO HS PRN INSOMNIA Mirtazapine 15 mg 06/23/18 22:00 06/30/18 21:39 Remeron - PO 15 mg HS SIRIA Administration Pantoprazole Sodium 40 mg 06/23/18 10:00 07/01/18 09:59 Protonix - PO 40 mg DAILY SIRIA Administration Multivit/Folic Acid/Iron 1 tab 06/23/18 10:00 07/01/18 09:59 Vitamins (Sjr) - PO 1 tab DAILY SIRIA Administration Pseudoephedrine/Triprolidine 1 combo 06/22/18 18:03 Actifed - PO TID PRN NASAL CONGESTION Thiamine HCl 100 mg 06/22/18 22:00 06/30/18 21:39 Vitamin B1 - PO 100 mg HS SIRIA Administration Trazodone HCl 100 mg 06/23/18 22:00 06/30/18 21:39 Desyrel - PO 100 mg HS SIRIA Administration Current Side Effect: No Lab tests ordered: No Lab tests reviewed: Yes Provider note:: patient completed this program today(early discharge due to medical reason-poor controlled blood sugar).She has met her treatment goals partially and will continue to address her issues at [facility].Patient will continue current medications as per plan.Scripts provided. Supportive therapy provided focusing on relapse prevention. Patient is stable for discharge today. Total face to face time:: 30 Mental Status Exam - Mental Status Exam Alert and Oriented to: Time, Place, Person Cognitive Function: Grossly Intact Patient Appearance: Unkempt Mood: Sad Affect: Mood Congruent, Labile Patient Behavior: Cooperative Speech Pattern: Clear Voice Loudness: Normal Thought Process: Goal Oriented Thought Disorder: Not Present Hallucinations: Denies Suicidal Ideation: Denies Homicidal Ideation: Denies Insight/Judgement: Fair Sleep: Fair Appetite: Fair Muscle strength/Tone: Normal Gait/Station: Normal Psychiatric Treatment Plan - Problem List (1) Alcohol dependence Current Visit: Yes (2) Cocaine dependence Current Visit: Yes (3) Chronic liver disease and cirrhosis Current Visit: Yes (4) Cocaine dependence Current Visit: Yes Qualifiers: Substance use status: uncomplicated Qualified Code(s): F14.20 - Cocaine dependence, uncomplicated (5) Substance induced mood disorder Current Visit: Yes (6) Diabetes mellitus, insulin dependent (IDDM), uncontrolled Current Visit: Yes Qualifiers: Diabetes mellitus complication status: with hyperglycemia Qualified Code(s) : E10.65 - Type 1 diabetes mellitus with hyperglycemia (7) Polyneuropathy Current Visit: Yes
== END 2018-07-01 15:25 | disposition home or self-care (01) | DRG 895 ==
LOC: YASAS 10:20 → Y3E 18:12
PROVIDERS: ADMIT Psychiatry & Neurology Psychiatry; ATTEND Psychiatry & Neurology Psychiatry
PROC: HZ42ZZZ Group Counseling for Substance Abuse Treatment, Cognitive-Behavioral (ICD-10-PCS; principal; 2018-06-22)
DX: F10.20 Alcohol dependence, uncomplicated (principal); F14.20 Cocaine dependence, uncomplicated; F19.282 Other psychoactive substance dependence with psychoactive substance-induced sleep disorder; F17.210 Nicotine dependence, cigarettes, uncomplicated; F19.24 Other psychoactive substance dependence with psychoactive substance-induced mood disorder; E10.65 Type 1 diabetes mellitus with hyperglycemia; Z79.4 Long term (current) use of insulin; I10 Essential (primary) hypertension; G62.9 Polyneuropathy, unspecified; K21.9 Gastro-esophageal reflux disease without esophagitis; K74.60 Unspecified cirrhosis of liver; I25.2 Old myocardial infarction; Z91.013 Allergy to seafood
CPT/HCPCS: 36415; 80053; 81003; 81015; 82009; 82803; 82947; 82962; 83036; 85025; 86593; 87086; 93005; 93010; 96361; 96372; 96374; 96376; 99283-25

== ENCOUNTER 2018-07-27 21:39 | Emergency (ER) | payer OTHER ==
--- NOTE | 2018-07-27 21:49 | PDOC ---
Rapid Medical Evaluation Time Seen by Provider: 07/27/18 21:49 Medical Evaluation: Allergies Allergy/AdvReac Type Severity Reaction Status Date / Time fish derived Allergy Severe Swelling Verified 06/23/18 21:13 shellfish derived Allergy Severe Swelling Verified 06/24/18 01:47 No Known Drug Allergies Allergy Verified 06/24/18 01:47 SEAFOOD Allergy Severe Swelling Uncoded 06/24/18 01:47 07/27/18 21:50 47-year-old with IDDM, neuropathy, chronic EtOH abuse, cirrhosis, MRSA, in [facility] for rehab s/p right leg fracture sent for blood glucose >500. Was given 10 units Humalog prior to arrival. Denies n/v, abdominal pain, or any other symptoms. Alert, oriented, no distress. RRR, S1/S2. Lungs CTAB. Abd soft, protuberant, non-tender. -Labs including acetone, VBG -Hydration -To Main ED for further evaluation Discharge Disposition - Diagnosis Hyperglycemia - Referrals Referrals: Domo Monge MD [Primary Care Provider] - - Patient Instructions - Post Discharge Activity
[2018-07-27] MEDS ORDERED: SODIUM CHLORIDE 1,000 ML IV STA ×2 (21:53→23:51)
[2018-07-27 21:54] VITALS: BP 132/84; PULSE 99; TEMP 98.8; BMI 29.1
--- NOTE | 2018-07-27 22:24 | PDOC ---
History of Present Illness - General Chief Complaint: Blood Sugar Problem Stated Complaint: Blood Sugar Problem Time Seen by Provider: 07/27/18 21:49 - History of Present Illness Initial Comments: 07/27/18 23:47 The patient is a 47 year old female with a history of IDDM, neuropathy, chronic EtOH abuse, cirrhosis, MRSA, in [facility] for rehab s/p right leg fracture who presents for evaluation of high blood sugar. The [facility] to be over 500 after eating today and sent her to the ER for further evaluation. She notes that her sugars usually run that high and states that she is currently asymptomatic. She notes that she received 10 units of humalog prior to presentation in the ED. The patient otherwise denies fevers, chills, SOB, chest pain, nausea, vomiting, abdominal pain, or changes with urination or bowel movements. Past History - Past Medical History Allergies/Adverse Reactions: Allergies Allergy/AdvReac Type Severity Reaction Status Date / Time fish derived Allergy Severe Swelling Verified 06/23/18 21:13 shellfish derived Allergy Severe Swelling Verified 06/24/18 01:47 No Known Drug Allergies Allergy Verified 06/24/18 01:47 SEAFOOD Allergy Severe Swelling Uncoded 06/24/18 01:47 Home Medications: Ambulatory Orders Pregabalin [Lyrica] 150 mg PO HS 04/30/17 Insulin Glargine,Hum.rec.anlog [Lantus Solostar PEN -] 40 units SQ HS 10/20/17 Insulin Lispro [Humalog] 0 unit SQ TIDCM 10/20/17 Lactulose (Oral Use) [Cephulac -] 20 gm PO TID PRN udc 01/01/18 Esomeprazole Magnesium [Nexium 24Hr] 40 mg PO DAILY 06/22/18 Lisinopril [Prinivil] 10 mg PO DAILY 06/22/18 Trazodone HCl 100 mg PO HS 06/23/18 Gabapentin [Neurontin -] 400 mg PO TID #90 cap 07/01/18 Insulin (Levemir) [Levemir Vial] 12 units SQ DAILY@0700 #1 vial 07/01/18 Insulin (Levemir) [Levemir Vial] 50 units SQ HS #1 vial 07/01/18 Lisinopril [Prinivil] 10 mg PO DAILY #30 tablet 07/01/18 Mirtazapine 15 mg PO HS #30 tablet 07/01/18 Pantoprazole Sodium [Protonix -] 40 mg PO DAILY #30 tablet.ec 07/01/18 traZODone HCL [Desyrel -] 100 mg PO HS #30 tablet 07/01/18 Anemia: No Asthma: No Cancer: No Cardiac Disorders: No CVA: No COPD: No CHF: No DVT: No Dementia: No Diabetes: Yes GI Disorders: No Disorders: No HTN: Yes Hypercholesterolemia: No Kidney Stones: No Liver Disease: Yes (chronic liver disease/cirrhosis) Seizures: No Thyroid Disease: No - Surgical History Abdominal Surgery: Yes (TUBAL LIGATION IN 2005) Appendectomy: Yes (10/25/17) Cardiac Surgery: No Cholecystectomy: Yes Lung Surgery: No Neurologic Surgery: No Orthopedic Surgery: Yes (neck, 11/30/2015 (fall);SX COCYX DUE TO OSTEOMYLITIS- 2010) - Reproductive History PID: No - Immunization History Immunization Up to Date: No - Suicide/Smoking/Psychosocial Hx Smoking History: Never smoked Have you smoked in the past 12 months: No Number of Cigarettes Smoked Daily: 0 Cigars Per Day: 0 Information on smoking cessation initiated: No 'Breaking Loose' booklet given: 05/30/16 Hx Alcohol Use: No Drug/Substance Use Hx: No Substance Use Type: Cocaine Hx Substance Use Treatment: Yes (Rehab in in December of 2017) Review of Systems - Review of Systems Comments:: 07/27/18 23:49 Constitutional: No fevers, chills, fatigue, malaise HEENT: No Rhinorrhea, nasal congestion, visual changes Cardiovascular: No chest pain, syncope, palpitations, lightheadedness Respiratory: No Cough, SOB, Hemoptysis, Gastrointestinal: No Abdominal pain, Nausea, Vomiting, Constipation, Diarrhea, Melena Genitourinary: No Dysuria, Frequency, Urgency, Hesitancy, Hematuria, Flank pain Musculoskeletal: No Myalgia, arthralgia Skin: No rashes, itching, bruising, pallor Neurologic: No Headache, Dizziness, Numbness, Weakness, or Tingling Psychiatric: No Hallucinations. No SI or HI *Physical Exam - Vital Signs Last Vital Signs Temp Pulse Resp BP Pulse Ox 98.8 F 99 H 20 132/84 100 07/27/18 21:50 07/27/18 21:50 07/27/18 21:50 07/27/18 21:50 07/27/18 21:50 - Physical Exam Comments: 07/27/18 23:49 General Appearance: Nourished. No Apparent Distress HEENT: No Pharyngeal Erythema, Tonsillar Exudate, Tonsillar Erythema Neck: No Cervical Lymphadenopathy Respiratory/Chest: Lungs Clear, Normal Breath Sounds. No Crackles, Rales, Rhonchi, Wheezing Cardiovascular: Regular Rhythm, Regular Rate. No Murmur, Gallops, Rubs Gastrointestinal/Abdominal: Normal Bowel Sounds, Soft. No Guarding, Rebound, Tenderness Musculoskeletal: No CVA Tenderness Extremity: Normal Capillary Refill Integumentary: Normal Color, Dry, Warm Neurologic: Fully Oriented, Alert, Normal Mood/Affect, Normal Response, ED Treatment Course - LABORATORY CBC & Chemistry Diagram: 07/27/18 23:00 07/27/18 23:00 Medical Decision Making - Medical Decision Making 07/27/18 23:49 The patient is a 47 year old female with a history of IDDM, neuropathy, chronic EtOH abuse, cirrhosis, MRSA, in [facility] for rehab s/p right leg fracture who presents for evaluation of high blood sugar. Differential includes but is not limited to: Hyperglycemia, DKA, Infectious, Metabolic derangement. Given the patient's history and physical exam, we will obtain a cbc, cmp, vbg, acetone, ua to evaluate further. We will treat with iv fluids in the meantime and continue to monitor and reassess while here in the ED. 07/28/18 01:45 CBC, vbg, acetone are unremarkable. CMP demonstrated a glucose of 500s. We treat the patient with a total of 2L NS and 10 units of regular insulin with the patient' repeat blood sugar of 380s. The patient continues to appear clinically well. We are comfortable discharging the patient home with primary care provider follow up. We discussed the results, plan, and return precautions with the patient who voiced understanding and is agreeable with the plan. *DC/Admit/Observation/Transfer Diagnosis at time of Disposition: Hyperglycemia - Discharge Dispostion Disposition: HOME Condition at time of disposition: Stable Decision to Admit order: No - Referrals Referrals: Domo Monge MD [Primary Care Provider] - - Patient Instructions Printed Discharge Instructions: DI for Hyperglycemia -- Adult Additional Instructions: Please return to the ER if you experience concerning or worsening symptoms including worsening chest pain, fevers, or vomiting. Your lab results showed that your blood sugar was high. Please continue your home medications. Please make sure you call to schedule a follow up appointment with your primary care provider within 2-3 days to discuss your ER visit and further management of your symptoms. - Post Discharge Activity
[2018-07-27 23:10] LABS: BASO % 0.1 % (0-2.0); HEMATOCRIT 34.2 % (32.4-45.2); HEMOGLOBIN 11.4 GM/dL (10.7-15.3); MCH 28.5 pg (25.7-33.7); MCHC 33.4 g/dl (32.0-36.0); MEAN CELL VOLUME 85.3 fl (80-96); MEAN PLT VOLUME 8.1 fl (7.5-11.1); MONO % 10.7 % (3.8-10.2); NEUT % 57.2 % (42.8-82.8); PLATELET COUNT 181 K/MM3 (134-434); RBC 4.01 M/mm3 (3.60-5.2); RDW 16.9 % (11.6-15.6); WHITE BLOOD COUNT 5.1 K/mm3 (4.0-10.0)
[2018-07-27 23:14] LABS: VENOUS PC02 46.1 mmHg (38-52); VENOUS PH 7.3 (7.32-7.42); VENOUS PO2 33.1 mmHg (28-48)
[2018-07-27 23:31] LABS: ACETONE SERUM NEGATIVE (NEGATIVE)
[2018-07-27 23:40] LABS: ALBUMIN 2.3 g/dl (3.4-5.0); ALK PHOS 321 U/L (45-117); ANION GAP 9 MMOL/L (8-16); BILIRUBIN,TOTAL 0.2 mg/dL (0.2-1.0); BLOOD UREA NITROGEN 22 mg/dL (7-18); CALCIUM 8.6 mg/dL (8.5-10.1); CHLORIDE 96 mmol/L (98-107); CO2 27 mmol/L (21-32); POTASSIUM 4.5 mmol/L (3.5-5.1); SGOT/AST 32 U/L (15-37); SGPT/ALT 46 U/L (12-78); SODIUM 132 mmol/L (136-145); TOT PROT 7.4 g/dl (6.4-8.2)
[2018-07-27 23:51] LABS: GLUCOSE,RANDOM 504 mg/dL (74-106)
[2018-07-28] MEDS ORDERED: INSULIN REGULAR HUMAN 100 UNITS/ML *VIAL IVPUSH ONE (00:02)
[2018-07-28] MEDS ORDERED: INSULIN REGULAR HUMAN 100 UNITS/ML *VIAL ONE (00:33)
--- NOTE | 2018-07-28 01:25 | PDOC ---
Attending Attestation - Resident Resident Name: Jagjit Spicer - ED Attending Attestation I have performed the following: I have examined & evaluated the patient, The case was reviewed & discussed with the resident, I agree w/resident's findings & plan, Exceptions are as noted - HPI HPI: 07/28/18 01:23 47 yo female sent from [facility] where she is getting PT for her rt leg. She has had elevated glucose levels and so she was transferred here to r/o DKA - Physicial Exam PE: 07/28/18 01:25 wnwd 47 yo female in no acute distress -she denies any fever or chills or nausea,vomiting ,chest pain or abdominal pain head ncat neck supple lungs cta b/l cvs [id number] abd nontender ext no edema skin no rashes neuro axox3,motor strength 5/5 - Medical Decision Making 07/28/18 01:27 acetone is negative <Sowmya Gutierrez - Last Filed: 07/28/18 01:27> - HPI HPI: 07/28/18 01:43 Patient is a 47 year old female with a significant past medical history of chronic liver disease/cirrhosis, HTN, Diabetes, who presents to the ED with complaints of high blood sugar. Patient reports having her blood sugar levels of at the [place] when it was discovered that her BGL levels were over 500 shortly after eating, prompting the [facility] to seen her to the ED for further evaluation. She reports her sugar level being that high at baseline, as well as experiencing no other symptoms while in the ED. Denies chest pain, Sob. Denies nausea, vomiting. Denies contact with sick individuals, out of state travelling. Denies dysuria, hematuria. Denies diarrhea , constipation. Denies any other symptoms. Allergies: Seafood Social history: No smoking. No alcohol. No illicit drugs. Surgical history: TUBAL LIGATION IN 2005, Appendectomy, Cholecystectomy, PMD: Dr. Domo Monge. <Diego Hu - Last Filed: 07/28/18 01:43>
== END 2018-07-28 02:49 | disposition home or self-care (01) ==
LOC: JER 21:39
PROC: 3E0337Z Introduction of Electrolytic and Water Balance Substance into Peripheral Vein, Percutaneous Approach (ICD-10-PCS; principal; 2018-07-27)
PROC: 3E033VG Introduction of Insulin into Peripheral Vein, Percutaneous Approach (ICD-10-PCS; 2018-07-27)
DX: E11.65 Type 2 diabetes mellitus with hyperglycemia (principal); Z79.4 Long term (current) use of insulin; G62.9 Polyneuropathy, unspecified; F10.10 Alcohol abuse, uncomplicated; Z87.81 Personal history of (healed) traumatic fracture; Z86.14 Personal history of Methicillin resistant Staphylococcus aureus infection
CPT/HCPCS: 36415; 80053; 82009; 82803; 82962; 85025; 96361; 96374; 99282-25; J7030

== ENCOUNTER 2018-08-24 17:38 | Observation (INO) | payer OTHER ==
--- NOTE | 2018-08-24 17:44 | PDOC ---
Rapid Medical Evaluation Time Seen by Provider: 08/24/18 17:43 Medical Evaluation: Allergies Allergy/AdvReac Type Severity Reaction Status Date / Time fish derived Allergy Severe Swelling Verified 06/23/18 21:13 shellfish derived Allergy Severe Swelling Verified 06/24/18 01:47 No Known Drug Allergies Allergy Verified 06/24/18 01:47 SEAFOOD Allergy Severe Swelling Uncoded 06/24/18 01:47 08/24/18 17:44 The patient presents with a chief complaint of: confused I have performed a brief in-person evaluation of this patient. Pertinent physical exam findings: vss, nonfebrile, able to answer questions, emr reviewd I have ordered the following: labs The patient will proceed to the ED for further evaluation. 08/24/18 17:46
[2018-08-24 17:46] VITALS: BMI 29.0
[2018-08-24 20:26] LABS: BASO % 0.1 % (0-2.0); HEMATOCRIT 34.5 % (32.4-45.2); HEMOGLOBIN 11.6 GM/dL (10.7-15.3); LYMPH % 26.6 % (8-40); MCH 28.1 pg (25.7-33.7); MCHC 33.7 g/dl (32.0-36.0); MEAN CELL VOLUME 83.5 fl (80-96); MONO % 10.9 % (3.8-10.2); NEUT % 62.4 % (42.8-82.8); PLATELET COUNT 203 K/MM3 (134-434); RBC 4.13 M/mm3 (3.60-5.2); RDW 16.3 % (11.6-15.6); WHITE BLOOD COUNT 6.5 K/mm3 (4.0-10.0)
[2018-08-24 21:09] LABS: ALBUMIN 2.4 g/dl (3.4-5.0); ALK PHOS 163 U/L (45-117); ANION GAP 10 MMOL/L (8-16); BILIRUBIN,TOTAL 0.2 mg/dL (0.2-1); BLOOD UREA NITROGEN 23 mg/dL (7-18); CHLORIDE 111 mmol/L (98-107); CO2 20 mmol/L (21-32); CREATININE 0.6 mg/dL (0.55-1.3); GLUCOSE,RANDOM 146 mg/dL (74-106); POTASSIUM 4.3 mmol/L (3.5-5.1); SGOT/AST 28 U/L (15-37); SGPT/ALT 39 U/L (13-61); SODIUM 140 mmol/L (136-145); TOT PROT 7.5 g/dl (6.4-8.2)
--- NOTE | 2018-08-24 21:58 | PDOC ---
History of Present Illness - General History Source: Patient Exam Limitations: No Limitations - History of Present Illness Initial Comments: The patient is a 48 year old female from [facility] with a past medical history of IDDM (non compliant on meds), liver cirrhosis (non compliant on lactulose), altered mental status secondary to hyperglycemia, pancreatitis, [place] (01/2018), HTN, GERD, and diabetic foot ulcer who presents to the emergency department for evaluation of weakness. Patient is somnolent and confused at presentation. Patient reports feeling weak and dizzy for the last few hours. She endorses intermittent episodes of shortness of breath. The patient states I feel weak and nauseous...I took my insulin today and subsequently nodded off. Patient is a poor historian. Unable to obtain proper history secondary to current AMS. As per EMR, the patient just finished detox. Of note, the patient has a history of presenting in a similar manner secondary to not being compliant with her lactulose. Allergies: shellfish derived, NKDA Social History: Reported cocaine and EtOH use. No reported cigarette use. Surgical History: Tubal ligation (2005), appendectomy (10/25/17), cholecystectomy PCP: Dr. Monge/Shailesh ([facility]) <Tino Garcia - Last Filed: 08/24/18 23:50> <Sowmya Gutierrez - Last Filed: 08/25/18 17:38> - General Chief Complaint: Weakness Stated Complaint: WEAKNESS Time Seen by Provider: 08/24/18 17:43 Past History <Tino Garcia - Last Filed: 08/24/18 23:50> - Past Medical History Anemia: No Asthma: No Cancer: No Cardiac Disorders: No CVA: No COPD: No CHF: No DVT: No Dementia: No Diabetes: Yes GI Disorders: No Disorders: No HTN: Yes Hypercholesterolemia: No Kidney Stones: No Liver Disease: Yes (chronic liver disease/cirrhosis) Seizures: No Thyroid Disease: No - Surgical History Abdominal Surgery: Yes (TUBAL LIGATION IN 2005) Appendectomy: Yes (10/25/17) Cardiac Surgery: No Cholecystectomy: Yes Lung Surgery: No Neurologic Surgery: No Orthopedic Surgery: Yes (neck, 11/30/2015 (fall);SX COCYX DUE TO OSTEOMYLITIS- 2010) - Reproductive History PID: No - Immunization History Immunization Up to Date: No - Suicide/Smoking/Psychosocial Hx Smoking History: Never smoked Have you smoked in the past 12 months: No Number of Cigarettes Smoked Daily: 0 Cigars Per Day: 0 'Breaking Loose' booklet given: 05/30/16 Hx Alcohol Use: No Drug/Substance Use Hx: No Substance Use Type: Cocaine Hx Substance Use Treatment: Yes (Rehab in in December of 2017) <MattSowmya Chio - Last Filed: 08/25/18 17:38> - Past Medical History Allergies/Adverse Reactions: Allergies Allergy/AdvReac Type Severity Reaction Status Date / Time fish derived Allergy Severe Swelling Verified 08/24/18 17:46 shellfish derived Allergy Severe Swelling Verified 08/24/18 17:46 No Known Drug Allergies Allergy Verified 08/24/18 17:46 SEAFOOD Allergy Severe Swelling Uncoded 08/24/18 17:46 Home Medications: Ambulatory Orders Pregabalin [Lyrica] 150 mg PO DAILY 04/30/17 Insulin Glargine,Hum.rec.anlog [Lantus Solostar PEN -] 52 units SQ BID 10/20/17 Insulin Lispro [Humalog] 20 unit SQ TIDCM 10/20/17 Lisinopril [Prinivil] 40 mg PO DAILY 06/22/18 Trazodone HCl 200 mg PO HS 06/23/18 Gabapentin [Neurontin -] 400 mg PO TID #90 cap 07/01/18 Acetaminophen 975 mg PO Q8H PRN 08/25/18 Docusate Sodium 100 mg PO BID 08/25/18 Duloxetine HCl [Cymbalta] 90 mg PO DAILY 08/25/18 Hydralazine HCl 25 mg PO TID 08/25/18 Ketoconazole 2% Shampoo [Nizoral 2% Shampoo -] 1 applic TP DAILY 08/25/18 Lactulose (Oral Use) [Cephulac -] 20 gm PO QID 08/25/18 Mag Hydrox/Aluminum Hyd/Simeth [Maalox Advanced Suspension] 30 ml PO Q8H PRN Nystatin Cream [Mycostatin Cream -] 1 applic TP BID 08/25/18 Ranitidine [Zantac -] 300 mg PO DAILY 08/25/18 Rifaximin [Xifaxan -] 200 mg PO TID #60 tablet 08/25/18 Review of Systems - Review of Systems Able to Perform ROS?: No (unable to obtain bc AMS) Comments:: 08/24/18 22:03 ROS UNABLE TO BE OBTAINED SECONDARY TO CURRENT AMS. <Tino Garcia - Last Filed: 08/24/18 23:50> *Physical Exam - Vital Signs Last Vital Signs Temp Pulse Resp BP Pulse Ox 97.4 F L 108 H 18 126/61 100 08/24/18 17:41 08/24/18 17:41 08/24/18 17:41 08/24/18 17:41 08/24/18 17:41 - Physical Exam Comments: wnwd 48YO female in no acute distress head (+)3 avulsive wounds on frontal scalp, 1 cm each. EOMI. neck supple oropharynx no exudates neck supple Heart RRR. No gallops, murmurs, or rubs. lungs clear to auscultation bilaterally abd soft,nontender ext (+)ecchymosis on left inner humerus (+)+1 mild pedal edema bilaterally. no c/c, MAEx4 skin warm and dry,no rashes. No signs of cellulitis. Neuro, unsteady gait. no gross focal neuro deficits Conversant, poor historian. <Tino Garcia - Last Filed: 08/24/18 23:50> - Vital Signs Last Vital Signs Temp Pulse Resp BP Pulse Ox 97.4 F L 108 H 18 126/61 100 08/24/18 17:41 08/24/18 17:41 08/24/18 17:41 08/24/18 17:41 08/24/18 17:41 <Sowmya Gutierrez - Last Filed: 08/25/18 17:38> ED Treatment Course - LABORATORY CBC & Chemistry Diagram: 08/24/18 20:12 08/24/18 20:12 - ADDITIONAL ORDERS Additional order review: Laboratory Results 08/24/18 08/24/18 08/24/18 20:12 20:12 20:12 PT with INR INR Sodium 140 Potassium 4.3 Chloride 111 H Carbon Dioxide 20 L Anion Gap 10 BUN 23 H Creatinine 0.6 Creat Clearance w eGFR > 60 Random Glucose 146 H Calcium 9.0 Total Bilirubin 0.2 AST 28 ALT 39 Alkaline Phosphatase 163 H Ammonia 212.54 H Total Protein 7.5 Albumin 2.4 L Blood Type O NEGATIVE Antibody Screen Negative 08/24/18 20:12 PT with INR Cancelled INR Cancelled Sodium Potassium Chloride Carbon Dioxide Anion Gap BUN Creatinine Creat Clearance w eGFR Random Glucose Calcium Total Bilirubin AST ALT Alkaline Phosphatase Ammonia Total Protein Albumin Blood Type Antibody Screen 08/24/18 20:12 RBC 4.13 MCV 83.5 MCHC 33.7 RDW 16.3 H MPV 8.0 Neutrophils % 62.4 Lymphocytes % 26.6 Monocytes % 10.9 H Eosinophils % 0.0 Basophils % 0.1 <Tino Garcia - Last Filed: 08/24/18 23:50> - LABORATORY CBC & Chemistry Diagram: 08/25/18 06:20 08/25/18 06:20 - ADDITIONAL ORDERS Additional order review: Laboratory Results 08/24/18 08/24/18 08/24/18 20:12 20:12 20:12 PT with INR INR Sodium 140 Potassium 4.3 Chloride 111 H Carbon Dioxide 20 L Anion Gap 10 BUN 23 H Creatinine 0.6 Creat Clearance w eGFR > 60 Random Glucose 146 H Calcium 9.0 Total Bilirubin 0.2 AST 28 ALT 39 Alkaline Phosphatase 163 H Ammonia 212.54 H Total Protein 7.5 Albumin 2.4 L Blood Type O NEGATIVE Antibody Screen Negative 08/24/18 20:12 PT with INR Cancelled INR Cancelled Sodium Potassium Chloride Carbon Dioxide Anion Gap BUN Creatinine Creat Clearance w eGFR Random Glucose Calcium Total Bilirubin AST ALT Alkaline Phosphatase Ammonia Total Protein Albumin Blood Type Antibody Screen 08/24/18 20:12 RBC 4.13 MCV 83.5 MCHC 33.7 RDW 16.3 H MPV 8.0 Neutrophils % 62.4 Lymphocytes % 26.6 Monocytes % 10.9 H Eosinophils % 0.0 Basophils % 0.1 <Sowmya Gutierrez - Last Filed: 08/25/18 17:38> Medical Decision Making - Medical Decision Making 08/24/[address] Resendiz at 22:43. <Tino Garcia - Last Filed: 08/24/18 23:50> - Medical Decision Making 08/24/18 22:35 48-year-old female who is a resident of [facility] for Altered mental status. She has a history of liver cirrhosis with chronic portal vein thrombosis. , Status post a TIPS procedure in 2009, type 1 diabetes, noncompliant, diabetic neuropathy, hypertension, cocaine and alcohol abuse, GERD, pancreatitis. She has been admitted for altered mental status due to elevated ammonia levels. 08/24/18 22:46 Initially patient presented quite lethargic, but she has since become more alert and was found walking in the hallway and escorted back to her bed. She is now in bed, requesting food and watching television. This 48-year-old female with alcohol related chronic liver disease and cirrhosis , cocaine dependence, hypertension, GERD, diabetic neuropathy is on lactulose 20 mg 3 times a day when necessary I did speak to digital court reporter, Dr. Resendiz and going to change her GI regiment She was on 20 mg of lactulose TID prn and this will be changed to TID daily for the time being and we will start her on Rifaxim 550 mg BID Patient had EDG done on January 01 of this year. This did show some small esophageal varices, duodenal inflammation and peripheral hypertensive gastropathy 08/25/18 00:53 I have found her digging her scalp ,she states it is itching so badly. She has caused multiple avulsive wounds to her scalp and mitts were applied to her hands 08/25/18 02:16 <Sowmya Gutierrez - Last Filed: 08/25/18 17:38> *DC/Admit/Observation/Transfer - Attestations Scribe Attestion: Documentation prepared by Tino Garcia, acting as medical affairs director for Sowmya Gutierrez MD. <Tino Garcia - Last Filed: 08/24/18 23:50> - Discharge Dispostion Decision to Admit order: Yes <Sowmya Gutierrez - Last Filed: 08/25/18 17:38> Diagnosis at time of Disposition: Portal hypertensive gastropathy, Hepatic encephalopathy, Polyneuropathy, Chronic liver disease and cirrhosis Altered mental status, unspecified Qualifiers: Altered mental status type: disorientation Qualified Code(s): R41.0 - Disorientation, unspecified Diabetes type 1, uncontrolled Qualifiers: Glycemic state: with hyperglycemia Qualified Code(s): E10.65 - Type 1 diabetes mellitus with hyperglycemia - Discharge Dispostion Condition at time of disposition: Improved
[2018-08-24] MEDS ORDERED: RIFAXIMIN 550 MG TABLET (UD) PO STA (22:56)
[2018-08-24] MEDS ORDERED: LACTULOSE 20 GM/30 ML UDC (FOR ORAL USE ONLY) PO ONE (23:30)
[2018-08-24] MEDS ORDERED: LACTULOSE 20 GM/30 ML UDC (FOR ORAL USE ONLY) ONE (23:48)
--- NOTE | 2018-08-25 02:27 | HP ---
CHIEF COMPLAINT: AMS PCP: Tejal BARTON HISTORY OF PRESENT ILLNESS: This is a 48 year old female with a past medical history significant for alcoholic cirrhosis who presented to the ED from her NH for altered mental status. Pt is confused and unable to answer questions. History obtained from chart. ER course was notable for: (1) Ammonia level 212 (2) (3) Recent Travel: unk PAST MEDICAL HISTORY: HTN, [place] 01/2018, DM, alcoholic cirrhosis, GERD, depression PAST SURGICAL HISTORY: TIPS procedure tubal ligation 2005 appendectomy 10/25/17 cholecystectomy neck, 11/30/2015 (fall) SX COCYX DUE TO OSTEOMYLITIS- 2010 Social History: pt denies toxic habits; however, multiple detox admissions for cocaine and alcohol. last known detox admission 06/22-07/01/18 Family History: unk Allergies fish derived Allergy (Severe, Verified 08/24/18 17:46) Swelling SEAFOOD = FISH + SHELLFISH shellfish derived Allergy (Severe, Verified 08/24/18 17:46) Swelling SEAFOOD = FISH + SHELLFISH No Known Drug Allergies Allergy (Verified 08/24/18 17:46) SEAFOOD Allergy (Severe, Uncoded 08/24/18 17:46) Swelling HOME MEDICATIONS: 3 Medication Instructions Recorded Pregabalin [Lyrica] 150 mg PO HS 04/30/17 Insulin Glargine,Hum.rec.anlog 40 units SQ HS 10/20/17 [Lantus Solostar PEN -] Insulin Lispro [Humalog] 0 unit SQ TIDCM 10/20/17 Lactulose (Oral Use) [Cephulac -] 20 gm PO TID PRN udc 01/01/18 Esomeprazole Magnesium [Nexium 40 mg PO DAILY 06/22/18 24Hr] Lisinopril [Prinivil] 10 mg PO DAILY 06/22/18 Trazodone HCl 100 mg PO HS 06/23/18 Gabapentin [Neurontin -] 400 mg PO TID #90 cap 07/01/18 Insulin (Levemir) [Levemir Vial] 12 units SQ DAILY@0700 #1 vial 07/01/18 Insulin (Levemir) [Levemir Vial] 50 units SQ HS #1 vial 07/01/18 Lisinopril [Prinivil] 10 mg PO DAILY #30 tablet 07/01/18 Mirtazapine 15 mg PO HS #30 tablet 07/01/18 Pantoprazole Sodium [Protonix -] 40 mg PO DAILY #30 tablet.ec 07/01/18 traZODone HCL [Desyrel -] 100 mg PO HS #30 tablet 07/01/18 REVIEW OF SYSTEMS CONSTITUTIONAL: Absent: fever, chills, diaphoresis, generalized weakness, malaise, loss of appetite, weight change HEENT: Absent: rhinorrhea, nasal congestion, throat pain, throat swelling, difficulty swallowing, mouth swelling, ear pain, eye pain, visual changes CARDIOVASCULAR: Absent: chest pain, syncope, palpitations, irregular heart rate, lightheadedness , peripheral edema RESPIRATORY: Absent: cough, shortness of breath, dyspnea with exertion, orthopnea, wheezing, stridor, hemoptysis GASTROINTESTINAL: Absent: abdominal pain, abdominal distension, nausea, vomiting, diarrhea, constipation, melena, hematochezia GENITOURINARY: Absent: dysuria, frequency, urgency, hesitancy, hematuria, flank pain, genital pain MUSCULOSKELETAL: Absent: myalgia, arthralgia, joint swelling, back pain, neck pain SKIN: Absent: rash, itching, pallor HEMATOLOGIC/IMMUNOLOGIC: Absent: easy bleeding, easy bruising, lymphadenopathy, frequent infections ENDOCRINE: Absent: unexplained weight gain, unexplained weight loss, heat intolerance, cold intolerance NEUROLOGIC: Present: mental status changes Absent: headache, focal weakness or paresthesias, dizziness, unsteady gait, seizure, bladder or bowel incontinence PSYCHIATRIC: Absent: anxiety, depression, suicidal or homicidal ideation, hallucinations. PHYSICAL EXAMINATION Vital Signs - 24 hr 3 08/24/18 17:41 Temperature 97.4 F L Pulse Rate 108 H Respiratory 18 Rate Blood Pressure 126/61 O2 Sat by Pulse 100 Oximetry (%) GENERAL: Awake, alert, and oriented to person, place and year, in no acute distress. requires prolonged period of time to answer questions after multiple repetitions of questions HEAD: Normal with no signs of trauma. scalp with multiple self inflicted excoriations EYES: Pupils equal, round and reactive to light, extraocular movements intact, sclera anicteric, conjunctiva clear. No lid lag. EARS, NOSE, THROAT: Ears normal, nares patent, oropharynx clear without exudates. Moist mucous membranes. NECK: Normal range of motion, supple without lymphadenopathy, JVD, or masses. LUNGS: Breath sounds equal, clear to auscultation bilaterally. No wheezes, and no crackles. No accessory muscle use. HEART: Regular rate and rhythm, normal S1 and S2 without murmur, rub or gallop. ABDOMEN: Soft, nontender, not distended, normoactive bowel sounds, no guarding, no rebound, no masses. No hepatomegaly or splenomegaly. MUSCULOSKELETAL: Normal range of motion at all joints. No bony deformities or tenderness. No CVA tenderness. UPPER EXTREMITIES: 2+ pulses, warm, well-perfused. No cyanosis. No clubbing. No peripheral edema. LOWER EXTREMITIES: 2+ pulses, warm, well-perfused. No calf tenderness. No peripheral edema. NEUROLOGICAL: Cranial nerves II-XII intact. Normal speech. unsteady gait. PSYCHIATRIC: Cooperative. Good eye contact. Appropriate mood and affect. SKIN: Warm, dry, normal turgor, no rashes or lesions noted, normal capillary refill. Laboratory Results - last 24 hr 3 08/24/18 08/24/18 08/24/18 08/24/18 20:12 20:12 20:12 23:54 WBC 6.5 RBC 4.13 Hgb 11.6 Hct 34.5 MCV 83.5 MCH 28.1 MCHC 33.7 RDW 16.3 H Plt Count 203 MPV 8.0 Absolute Neuts (auto) 4.1 Neutrophils % 62.4 Lymphocytes % 26.6 Monocytes % 10.9 H Eosinophils % 0.0 Basophils % 0.1 Nucleated RBC % 0 PT with INR Cancelled INR Cancelled Sodium 140 Potassium 4.3 Chloride 111 H Carbon Dioxide 20 L Anion Gap 10 BUN 23 H Creatinine 0.6 Creat Clearance w eGFR > 60 Random Glucose 146 H Calcium 9.0 Total Bilirubin 0.2 AST 28 ALT 39 Alkaline Phosphatase 163 H Ammonia 212.54 H Total Protein 7.5 Albumin 2.4 L Serum , Qual Negative Blood Type O NEGATIVE Antibody Screen Negative ECG Sinus tachycardia vent rate 107, QTC [address]/T wave changes ASSESSMENT/PLAN: 48yF with PMH HTN, [place] 01/2018, DM, alcoholic cirrhosis, GERD, depression presented from [facility] for altered mental status. hepatic encephalopathy - cont home lactulose QID - add rifaximin - GI consult - us doppler liver to ensure patency of TIPS procedure - ammonia level in am DM - home lantus changed to formulary levemir - novolog TID with meals - BGM AC/HS with novolog sliding scale HTN - cont home meds: hydralazine and lisinopril GERD - cont home zantac DVT PPX - heparin 5000u TID FEN - tolerating po - bmp in am - NPO for US in am, diabetic diet after US Dispo: pt currently requires further observation for management of her emergent condition. Visit type - Emergency Visit Emergency Visit: Yes ED Registration Date: 08/24/18 Care time: The patient presented to the Emergency Department on the above date and was hospitalized for further evaluation of their emergent condition. - New Patient This patient is new to me today: Yes Date on this admission: 08/25/18 - Critical Care Critical Care patient: No Hospitalist Screening - Colonoscopy Questionnaire Colonoscopy Questionnaire: Colonoscopy Questionnaire - Patient: 50 - 75 years old and never had a screening colonoscopy: Unknown History of colon or rectal polyps, or CA: Unknown History of IBD, Crohn's disease or UC: Unknown History of abdominal radiation therapy as a child: Unknown - Relative: 1 with colon or rectal CA, or polyps at age 60 or younger: Unknown Colon or rectal CA diagnosed at age 45 or younger: Unknown Multiple relatives with colon or rectal CA: Unknown - Outcome: Screening Result: Negative Screen
[2018-08-25] MEDS ORDERED: ACETAMINOPHEN 325 MG TABLET (FP) PO PRN (02:58)
[2018-08-25] MEDS ORDERED: MAG HYDROX/AL HYDROX/SIMETH 30 ML UNIT-DOSE CUP PO PRN (02:58)
[2018-08-25] MEDS ORDERED: diphenhydrAMINE HCL 25 MG CAPSULE (FP) PO PRN (02:58)
[2018-08-25] MEDS ORDERED: traMADol HCL 50 MG TABLET PO PRN (02:58)
[2018-08-25] MEDS ORDERED: traMADol HCL 50 MG TABLET ONE (04:11)
[2018-08-25] MEDS ORDERED: diphenhydrAMINE HCL 25 MG CAPSULE (FP) PO ONE (05:07)
[2018-08-25] MEDS ORDERED: hydrALAZINE HCL 25 MG TABLET (FP) PO SCH (06:00)
[2018-08-25] MEDS ORDERED: GABAPENTIN 400 MG CAPSULE (FP) PO SCH (06:00)
[2018-08-25] MEDS ORDERED: HEPARIN NA (PORCINE) 5,000 UNITS/ML 1ML VIAL SQ SCH (06:00)
[2018-08-25 06:35] LABS: BASO % 0.1 % (0-2.0); HEMATOCRIT 36.1 % (32.4-45.2); MCH 27.9 pg (25.7-33.7); MCHC 33.2 g/dl (32.0-36.0); MEAN CELL VOLUME 84.1 fl (80-96); MEAN PLT VOLUME 7.7 fl (7.5-11.1); MONO % 10.2 % (3.8-10.2); NEUT % 58.7 % (42.8-82.8); PLATELET COUNT 204 K/MM3 (134-434); RBC 4.29 M/mm3 (3.60-5.2); WHITE BLOOD COUNT 4.9 K/mm3 (4.0-10.0)
[2018-08-25] MEDS ORDERED: hydrALAZINE HCL 25 MG TABLET (FP) ONE (06:43)
[2018-08-25] MEDS ORDERED: HEPARIN NA (PORCINE) 5,000 UNITS/ML 1ML VIAL ONE (06:43)
[2018-08-25] MEDS ORDERED: INSULIN (LEVEMIR) 100 UNITS/ML UNITS SQ ONE ×2 (06:44)
[2018-08-25] MEDS ORDERED: GABAPENTIN 100 MG CAPSULE (FP) ONE (06:46)
[2018-08-25] MEDS ORDERED: INSULIN (LEVEMIR) 100 UNITS/ML UNITS SQ SCH (07:00)
[2018-08-25 07:04] LABS: ANION GAP 8 MMOL/L (8-16); BLOOD UREA NITROGEN 24 mg/dL (7-18); CALCIUM 8.7 mg/dL (8.5-10.1); CHLORIDE 107 mmol/L (98-107); CO2 24 mmol/L (21-32); CREATININE 0.7 mg/dL (0.55-1.3); GLUCOSE,RANDOM 248 mg/dL (74-106); MAGNESIUM 1.8 mg/dL (1.8-2.4); PHOSPHOROUS 4.4 mg/dL (2.5-4.9); POTASSIUM 3.8 mmol/L (3.5-5.1); SODIUM 139 mmol/L (136-145)
[2018-08-25] MEDS ORDERED: INSULIN SLIDING SCALE (NOVOLOG) 1 VIAL SQ SCH (08:00)
[2018-08-25] MEDS ORDERED: INSULIN (NOVOLOG) ASPART 100 UNITS/ML 10ML VIAL SQ SCH ×2 (08:00)
[2018-08-25] MEDS ORDERED: LACTULOSE 20 GM/30 ML UDC (FOR ORAL USE ONLY) PO SCH (10:00)
[2018-08-25] MEDS ORDERED: PREGABALIN 50 MG CAPSULE PO SCH (10:00)
[2018-08-25] MEDS ORDERED: RANITIDINE HCL 150 MG TABLET (FP) PO SCH (10:00)
[2018-08-25] MEDS ORDERED: LISINOPRIL 20 MG TABLET (FP) PO SCH (10:00)
[2018-08-25] MEDS ORDERED: DOCUSATE SODIUM 100 MG CAPSULE (FP) PO SCH (10:00)
[2018-08-25] MEDS ORDERED: DULoxetine HCL 30 MG CAPSULE.DR (FP) PO SCH (10:00)
[2018-08-25] MEDS ORDERED: NYSTATIN 100,000 UNIT/GM TOPICAL CREAM 15 GM TUBE TP SCH (10:00)
--- NOTE | 2018-08-25 10:56 | EKG ---
Test Reason : Blood Pressure : / mmHG Vent. Rate : 107 BPM Atrial Rate : 107 BPM P-R Int : 146 ms QRS Dur : 082 ms QT Int : 350 ms P-R-T Axes : 060 016 038 degrees QTc Int : 467 ms SINUS TACHYCARDIA POSSIBLE LEFT ATRIAL ENLARGEMENT CANNOT RULE OUT ANTERIOR INFARCT , AGE UNDETERMINED ABNORMAL ECG Confirmed by MD AMANDA, SANDEEP ([id number]) on 08/25/2018 10:55:52 AM Referred By: Confirmed By:SANDEEP PATEL MD
--- NOTE | 2018-08-25 10:59 | DS ---
Physical Examination Vital Signs: Vital Signs Temperature 97.4 F L 08/24/18 17:41 Pulse Rate 108 H 08/25/18 06:34 Respiratory Rate 18 08/25/18 06:34 Blood Pressure 160/85 08/25/18 06:34 O2 Sat by Pulse Oximetry (%) 100 08/25/18 06:00 Constitutional: Yes: No Distress, Calm Cardiovascular: Yes: Regular Rate and Rhythm Respiratory: Yes: CTA Bilaterally Gastrointestinal: Yes: Normal Bowel Sounds, Soft, Abdomen, Obese. No: Tenderness Edema: No 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: Yes: WNL, Alert, Oriented Labs: CBC, BMP 08/25/18 06:20 08/25/18 06:20 Discharge Summary Reason For Visit: INSULIN DEPENDENT DM, CHRONIC LIVER DISEASE AND Current Active Problems Altered mental status, unspecified (Acute) Hepatic encephalopathy (Acute) Portal hypertensive gastropathy (Acute) Chronic liver disease and cirrhosis (Chronic) Diabetes mellitus, insulin dependent (IDDM), uncontrolled (Chronic) Polyneuropathy (Chronic) Hospital Course: sent from [facility] for nose bleeding and AMS Ammonia level high Given Lactulose , pt is awake and alert At baseline mentation Ammonia level decreased Pt is stable to dc back to [place] Will need GI eval on discharge Condition: Improved - Instructions Referrals: Noam Ruano MD [Staff Physician] - Disposition: HALF-WAY FACILITY - Home Medications Comprehensive Discharge Medication List: Ambulatory Orders Pregabalin [Lyrica] 150 mg PO DAILY 04/30/17 Insulin Glargine,Hum.rec.anlog [Lantus Solostar PEN -] 52 units SQ BID 10/20/17 Insulin Lispro [Humalog] 20 unit SQ TIDCM 10/20/17 Lisinopril [Prinivil] 40 mg PO DAILY 06/22/18 Trazodone HCl 200 mg PO HS 06/23/18 Gabapentin [Neurontin -] 400 mg PO TID #90 cap 07/01/18 Acetaminophen 975 mg PO Q8H PRN 08/25/18 Docusate Sodium 100 mg PO BID 08/25/18 Duloxetine HCl [Cymbalta] 90 mg PO DAILY 08/25/18 Hydralazine HCl 25 mg PO TID 08/25/18 Ketoconazole 2% Shampoo [Nizoral 2% Shampoo -] 1 applic TP DAILY 08/25/18 Lactulose (Oral Use) [Cephulac -] 20 gm PO QID 08/25/18 Mag Hydrox/Aluminum Hyd/Simeth [Maalox Advanced Suspension] 30 ml PO Q8H PRN Nystatin Cream [Mycostatin Cream -] 1 applic TP BID 08/25/18 Ranitidine [Zantac -] 300 mg PO DAILY 08/25/18 Rifaximin [Xifaxan -] 200 mg PO TID #60 tablet 08/25/18
[2018-08-25 11:09] VITALS: BP 143/82; PULSE 114; TEMP 97.6
[2018-08-25] MEDS ORDERED: PREGABALIN 50 MG CAPSULE ONE (11:32)
[2018-08-25] MEDS ORDERED: PREGABALIN 100 MG CAPSULE ONE (11:33)
== END 2018-08-25 12:05 ==
LOC: JER 17:38 → JERBED 23:04
PROVIDERS: ADMIT Internal Medicine; ATTEND Internal Medicine
PROC: 3E013VG Introduction of Insulin into Subcutaneous Tissue, Percutaneous Approach (ICD-10-PCS; principal; 2018-08-24)
DX: K76.6 Portal hypertension (principal); K72.90 Hepatic failure, unspecified without coma; G62.9 Polyneuropathy, unspecified; R41.0 Disorientation, unspecified; E11.621 Type 2 diabetes mellitus with foot ulcer; L97.509 Non-pressure chronic ulcer of other part of unspecified foot with unspecified severity; E11.65 Type 2 diabetes mellitus with hyperglycemia; K70.30 Alcoholic cirrhosis of liver without ascites; I10 Essential (primary) hypertension; I25.2 Old myocardial infarction; K21.9 Gastro-esophageal reflux disease without esophagitis; F32.9 Major depressive disorder, single episode, unspecified; Z91.013 Allergy to seafood; Z87.19 Personal history of other diseases of the digestive system; Z79.4 Long term (current) use of insulin; Z91.14 Patient's other noncompliance with medication regimen
CPT/HCPCS: 36415; 70450-TC; 76705-TC; 80048; 80053; 82140; 82962; 83735; 84100; 84703; 85025; 86850; 86900; 86901; 93005; 93010; 93976; 96372; 99284-25; G0378

== ENCOUNTER 2018-11-09 10:05 | Inpatient (IN) | payer OTHER ==
[2018-11-09 10:46] VITALS: BMI 28.4
--- NOTE | 2018-11-09 11:17 | HP ---
CIWA Score Nausea/Vomitin Muscle Tremors: 2 Anxiety: 2 Agitation: 2 Paroxysmal Sweats: 1-Minimal Palms Moist Orientation: 0-Oriented Tacttile Disturbances: 1-Very Mild Itch/Numbness Auditory Disturbances: 1-Very Mild Visual Disturbances: 0-None Headache: 2-Mild CIWA-Ar Total Score: 13 - Admission Criteria OASAS Guidelines: Admission for Medically Managed Detox: Requires at least one of the followin. CIWA greater than 12 2. Seizures within the past 24 hours 3. Delirium tremens within the past 24 hours 4. Hallucinations within the past 24 hours 5. Acute intervention needed for co occurring medical disorder 6. Acute intervention needed for co occurring psychiatric disorder 7. Severe withdrawal that cannot be handled at a lower level of care (continued vomiting, continued diarrhea, abnormal vital signs) requiring intravenous medication and/or fluids 8. Patient presents the following: CIWA greater than 12 Admission Criteria Met: Admission criteria met Admission ROS S - [facility] Chief Complaint: i need help to stop drinking alcohol and cocaine Allergies/Adverse Reactions: Allergies Allergy/AdvReac Type Severity Reaction Status Date / Time fish derived Allergy Severe Swelling Verified 11/09/18 11:14 shellfish derived Allergy Severe Swelling Verified 11/09/18 11:14 No Known Drug Allergies Allergy Verified 11/09/18 11:14 SEAFOOD Allergy Severe Swelling Uncoded 11/09/18 11:14 History of Present Illness: this 48 years old female with alcohol and ccociane dependence,seeking detox, withdrawal symptom,last treatment rehab 06/22/18 07/01/18 treated for hepatic encephhalopathy at [facility] in 09/17 hypertension,iddm,gerd,neuropathy longest period of sobriety 6 months sleep disorder ecchymosis left forearm seen in [place] last night Exam Limitations: No Limitations - Ebola screening Have you traveled outside of the country in the last 21 days: No Have you had contact with anyone from an Ebola affected area: No Have you been sick,other than usual withdrawal symptoms: No - Review of Systems Constitutional: Loss of Appetite, Malaise, Night Sweats, Changes in sleep, Weakness EENT: reports: Nose Congestion Respiratory: reports: No Symptoms reported Cardiac: reports: Palpitations GI: reports: Diarrhea, Nausea, Poor Appetite, Abdominal cramping : reports: No Symptoms Reported Musculoskeletal: reports: Back Pain, Muscle Pain Integumentary: reports: Dryness Neuro: reports: No Symptoms reported, Tremors Endocrine: reports: No Symptoms Reported Hematology: reports: No Symptoms Reported Psychiatric: reports: No Sypmtoms Reported, Judgement Intact, Mood/Affect Appropiate, Orientated x3 (anxiety,depression,insomnia) Patient History - Patient Medical History Hx Anemia: No Hx Asthma: No Hx Chronic Obstructive Pulmonary Disease (COPD): No Hx Cancer: No Hx Cardiac Disorders: No Hx Congestive Heart Failure: No Hx Hypertension: Yes (non compliance) Hx Hypercholesterolemia: No Hx Pacemaker: No HX Cerebrovascular Accident: No Hx Seizures: No Hx Dementia: No Hx Diabetes: Yes (iddm) Hx Gastrointestinal Disorders: No Hx Liver Disease: Yes (chronic liver disease/cirrhosis) Hx Genitourinary Disorders: No Hx Sexually Transmitted Disorders: No Hx Renal Disease (ESRD): No Hx Thyroid Disease: No Hx Human Immunodeficiency Virus (HIV): No (NEGATIVE HX last 10/18 negative) Hx Hepatitis C: No (NEGATIVE ) Hx Depression: No Hx Suicide Attempt: No Hx Bipolar Disorder: No Hx Schizophrenia: No Other Medical History: no suicidal,no hmicidal - Patient Surgical History Past Surgical History: Yes Hx Neurologic Surgery: No Hx Cataract Extraction: No Hx Cardiac Surgery: No Hx Lung Surgery: No Hx Breast Surgery: No Hx Breast Biopsy: No Hx Abdominal Surgery: Yes (TUBAL LIGATION IN 2005) Hx Appendectomy: Yes (10/25/17) Hx Cholecystectomy: Yes (lap ) Hx Genitourinary Surgery: No Hx Section: No Hx Orthopedic Surgery: Yes (neck, 11/30/2015 (fall);SX COCYX DUE TO OSTEOMYLITIS - 2010) Other Surgical History: Pt had sx for intestinal blockage in 11/16 in [facility] 11/16 Anesthesia Reaction: No - PPD History Previous Implant?: Yes Documented Results: Negative w/o proof Implanted On Prior [facility] Admission?: Yes Date: 10/22/17 Results: 0 mm PPD to be Administered?: Yes - Reproductive History Patient is a Female of Child Bearing Age (11 -55 yrs old): Yes Last Menstrual Period: 11/02/18 Patient : No - Smoking Cessation Smoking history: Never smoked Have you smoked in the past 12 months: No Aproximately how many cigarettes per day: 0 Cigars Per Day: 0 Hx Chewing Tobacco Use: No - Substance & Tx. History Hx Alcohol Use: Yes Hx Substance Use: Yes Substance Use Type: Alcohol, Cocaine Hx Substance Use Treatment: Yes (rehab06/22/18 to 07/01/18) - Substances Abused Alcohol Route: Oral Frequency: Daily Amount used: 30 nips of vodka Age of first use: 35 Date of Last Use: 11/08/18 Crack Route: Smoking Frequency: Daily Amount used: $20 Age of first use: 45 Date of Last Use: 11/08/18 Family Disease History - Family Disease History Family Disease History: Diabetes: Grandparent (alcohol), Father (alive: 68: HTN) , Mother (alive: 67), Other: Grandparent, Father, Mother Admission Physical Exam S - Vital Signs Vital Signs: Vital Signs - 24 hr 11/09/18 10:43 Temperature 97.8 F Pulse Rate 110 H Respiratory 20 Rate Blood Pressure 145/74 - Physical General Appearance: Yes: Moderate Distress, Tremorous, Irritable, Sweating, Anxious HEENTM: Yes: Normal ENT Inspection, HIGINIO, Pharynx Normal Respiratory: Yes: Lungs Clear, Normal Breath Sounds, No Respiratory Distress Neck: Yes: Within Normal Limits, Supple, Trachea in good position Breast: Yes: Breast Exam Deferred Cardiology: Yes: Within Normal Limits, Regular Rhythm, Regular Rate, S1, S2 Abdominal: Yes: Within Normal Limits, Normal Bowel Sounds, Non Tender, Flat, Soft, Surgical Scar Genitourinary: Yes: Within Normal Limits Back: Yes: Muscle Spasm, Surgical Scar Musculoskeletal: Yes: Back pain, Muscle Pain Extremities: Yes: Tremors 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, Alert, Motor Strength 5/5 Integumentary: Yes: Dry Lymphatic: Yes: Within Normal Limits - Diagnostic (1) Alcohol dependence with uncomplicated withdrawal Current Visit: Yes Status: Chronic (2) Cocaine dependence Current Visit: No Status: Acute Qualifiers: Substance use status: uncomplicated Qualified Code(s): F14.20 - Cocaine dependence, uncomplicated (3) Hepatic encephalopathy Current Visit: No Status: Acute (4) Insulin dependent diabetes mellitus Current Visit: No Status: Deleted (5) Yeast infection involving the vagina and surrounding area Current Visit: No Status: Deleted (6) Cocaine dependence Current Visit: No Status: Deleted Qualifiers: Substance use status: uncomplicated Qualified Code(s): F14.20 - Cocaine dependence, uncomplicated (7) Diabetes mellitus, insulin dependent (IDDM), uncontrolled Current Visit: No Status: Chronic Qualifiers: Glycemic state: with hyperglycemia Qualified Code(s): E10.65 - Type 1 diabetes mellitus with hyperglycemia (8) GERD (gastroesophageal reflux disease) Current Visit: No Status: Chronic Qualifiers: Esophagitis presence: without esophagitis Qualified Code(s): K21.9 - Gastro -esophageal reflux disease without esophagitis (9) Hypertension Current Visit: No Status: Chronic Qualifiers: Hypertension type: essential hypertension Qualified Code(s): I10 - Essential (primary) hypertension (10) Insomnia Current Visit: No Status: Deleted Qualifiers: Insomnia type: primary Qualified Code(s): F51.01 - Primary insomnia (11) Polyneuropathy Current Visit: Yes Status: Chronic (12) Increased ammonia level Current Visit: Yes Status: Acute Cleared for Admission S - Detox or Rehab [facility] Level of Care: Medically Managed Detox Regimen/Protocol: Librium S Breath Alcohol Content Breath Alcohol Content: 0.054 Urine Pregancy Test - Result Urine Test Results: Negative- NO Line Present Urine Drug Screen - Results Drug Screen Negative: No Urine Drug Screen Results: DEEPAK-Cocaine
[2018-11-09] MEDS ORDERED: IBUPROFEN 400 MG TABLET (FP) PO PRN (11:32)
[2018-11-09] MEDS ORDERED: guaiFENesin/D-METHORPHAN HB 10 ML UNIT-DOSE CUPS PO PRN (11:32)
[2018-11-09] MEDS ORDERED: chlordiazePOXIDE HCL 25 MG CAPSULE PO PRN (11:32)
[2018-11-09] MEDS ORDERED: P-EPHED 60MG/TRIPROLIDI 2.5MG TABLET PO PRN (11:32)
[2018-11-09] MEDS ORDERED: ACETAMINOPHEN 325 MG TABLET (FP) PO PRN (11:32)
[2018-11-09] MEDS ORDERED: MAGNESIUM HYDROX 2400MG/30ML ORAL SUSPENSION 30 ML CUP PO PRN (11:32)
[2018-11-09] MEDS ORDERED: MENTHOL/PHENOL 1 EACH UD MM PRN (11:32)
[2018-11-09] MEDS ORDERED: MAGNESIUM CITRATE 300 ML BOTTLE PO PRN (11:32)
[2018-11-09] MEDS ORDERED: LOPERAMIDE HCL 2 MG CAPSULE PO PRN (11:32)
[2018-11-09] MEDS: hydrALAZINE HCL 25 MG TABLET (FP) PO SCH ×2 (15:28→23:58)
[2018-11-09] MEDS: chlordiazePOXIDE HCL 25 MG CAPSULE PO SCH ×2 (17:01→23:58)
[2018-11-09] MEDS: MAG HYDROX/AL HYDROX/SIMETH 30 ML UNIT-DOSE CUP PO PRN (17:01)
[2018-11-09] MEDS: INSULIN (NOVOLOG) ASPART 100 UNITS/ML 10ML VIAL SQ SCH ×2 (17:05→23:59)
[2018-11-09] MEDS ORDERED: INSULIN (NOVOLOG) ASPART 100 UNITS/ML 10ML VIAL SQ ONE (17:15)
[2018-11-09 17:34] LABS: URINE APPEARANCE SLCLOUDY; URINE BILIRUBIN NEGATIVE (<2.0 mg/dL); URINE COLOR YELLOW; URINE GLUCOSE (UA) 3+ (NEGATIVE); URINE KETONE 1+ (NEGATIVE); URINE LEUK ESTERASE NEGATIVE (NEGATIVE); URINE NITRITE NEGATIVE (NEGATIVE); URINE PROTEIN 2+ (NEGATIVE); URINE UROBILINOGEN NEGATIVE mg/dL (0.2-1.0)
[2018-11-09 17:38] LABS: EPI CELLS RARE /HPF (FEW); URINE BACTERIA RARE /hpf (NONE SEEN); URINE MUCUS RARE; YEAST RARE
[2018-11-09] MEDS: LIDOCAINE 5% TOPICAL PATCH TP SCH (20:34)
[2018-11-09] MEDS: CYCLOBENZAPRINE HCL 10 MG TABLET (FP) PO PRN (20:36)
[2018-11-09] MEDS ORDERED: MELATONIN 5 MG TABLETS PO PRN (22:00)
[2018-11-09] MEDS: THIAMINE HCL 100 MG TABLET (FP) PO SCH (23:59)
[2018-11-09] MEDS: LACTULOSE 20 GM/30 ML UDC (FOR ORAL USE ONLY) PO SCH (23:59)
[2018-11-09] MEDS: LIDOCAINE PATCH REMOVAL MC SCH (23:59)
[2018-11-10] MEDS ORDERED: INSULIN (NOVOLOG) ASPART 100 UNITS/ML 10ML VIAL ONE ×2 (07:51→21:26)
[2018-11-10] MEDS: hydrALAZINE HCL 25 MG TABLET (FP) PO SCH ×3 (07:53→23:03)
[2018-11-10] MEDS: chlordiazePOXIDE HCL 25 MG CAPSULE PO SCH ×4 (07:53→23:05)
[2018-11-10] MEDS: LACTULOSE 20 GM/30 ML UDC (FOR ORAL USE ONLY) PO SCH ×3 (07:53→23:03)
[2018-11-10] MEDS: INSULIN (NOVOLOG) ASPART 100 UNITS/ML 10ML VIAL SQ SCH ×2 (07:54→12:04)
[2018-11-10] MEDS: LISINOPRIL 10 MG TABLET (FP) PO SCH (10:46)
[2018-11-10] MEDS: PRENATAL VITAMINS W/ FOLIC ACID TABLET (FP) PO SCH (10:46)
[2018-11-10] MEDS: NADOLOL 20 MG TABLET (FP) PO SCH (10:46)
[2018-11-10] MEDS: PREGABALIN 75 MG CAPSULE PO SCH (10:48)
[2018-11-10] MEDS: LIDOCAINE 5% TOPICAL PATCH TP SCH (10:48)
[2018-11-10 10:55] LABS: HEMATOCRIT 34.2 % (32.4-45.2); HEMOGLOBIN 10.9 GM/dL (10.7-15.3); MCH 26.1 pg (25.7-33.7); MCHC 31.8 g/dl (32.0-36.0); MEAN CELL VOLUME 82.1 fl (80-96); MEAN PLT VOLUME 8.9 fl (7.5-11.1); PLATELET COUNT 230 K/MM3 (134-434); RBC 4.16 M/mm3 (3.60-5.2); RDW 16.9 % (11.6-15.6); WHITE BLOOD COUNT 6.2 K/mm3 (4.0-10.0)
[2018-11-10 11:01] LABS: ALBUMIN 2.3 g/dl (3.4-5.0); ALK PHOS 165 U/L (45-117); ANION GAP 15 MMOL/L (8-16); BILIRUBIN,TOTAL 0.4 mg/dL (0.2-1); BLOOD UREA NITROGEN 9 mg/dL (7-18); CALCIUM 9.9 mg/dL (8.5-10.1); CHLORIDE 92 mmol/L (98-107); CO2 23 mmol/L (21-32); CREATININE 0.8 mg/dL (0.55-1.3); POTASSIUM 3.9 mmol/L (3.5-5.1); SGOT/AST 32 U/L (15-37); SGPT/ALT 40 U/L (13-61); SODIUM 130 mmol/L (136-145); TOT PROT 6.7 g/dl (6.4-8.2)
[2018-11-10 11:03] LABS: GLUCOSE,RANDOM 446 mg/dL (74-106)
--- NOTE | 2018-11-10 13:36 | PN ---
S CIWA - CIWA Score Nausea/Vomitin-No Nausea/No Vomiting Muscle Tremors: 4-Moderate,w/Arms Extend Anxiety: 3 Agitation: 4-Moderately Restless Paroxysmal Sweats: 3 Orientation: 0-Oriented Tacttile Disturbances: 0-None Auditory Disturbances: 0-None Visual Disturbances: 0-None Headache: 0-None Present CIWA-Ar Total Score: 14 B[facility] Progress Note (SOAP) Subjective: sweats body aches chills shakes interrupted sleep annoyed agitation Objective: 11/10/18 13:34 Vital Signs Temperature 98.2 F 11/10/18 10:00 Pulse Rate 103 H 11/10/18 10:00 Respiratory Rate 18 11/10/18 10:00 Blood Pressure 123/65 11/10/18 10:00 O2 Sat by Pulse Oximetry (%) Laboratory Tests 11/09/18 11/09/18 11/09/18 11:41 11:45 15:30 WBC RBC Hgb Hct MCV MCH MCHC RDW Plt Count MPV Sodium Potassium Chloride Carbon Dioxide Anion Gap BUN Creatinine Creat Clearance w eGFR POC Glucometer > 400 Random Glucose Fasting Glucose Hemoglobin A1c % Calcium Total Bilirubin AST ALT Alkaline Phosphatase Ammonia 97.40 H Total Protein Albumin Urine Color Yellow Urine Appearance Slcloudy Urine pH 6.0 Ur Specific [place] 1.030 Urine Protein 2+ H Urine Glucose (UA) 3+ H Urine Ketones 1+ H Urine Blood 1+ H Urine Nitrite Negative Urine Bilirubin Negative Urine Urobilinogen Negative Ur Leukocyte Esterase Negative Urine WBC (Auto) 5 Urine RBC (Auto) 2 Ur Epithelial Cells Rare Urine Bacteria Rare Urine Mucus Rare Urine Yeast Rare RPR Titer 11/09/18 11/09/18 11/10/18 16:29 16:34 05:45 WBC 6.2 RBC 4.16 Hgb 10.9 Hct 34.2 MCV 82.1 MCH 26.1 MCHC 31.8 L RDW 16.9 H Plt Count 230 MPV 8.9 D Sodium Potassium Chloride Carbon Dioxide Anion Gap BUN Creatinine Creat Clearance w eGFR POC Glucometer > 400 > 400 Random Glucose Fasting Glucose Hemoglobin A1c % Calcium Total Bilirubin AST ALT Alkaline Phosphatase Ammonia Total Protein Albumin Urine Color Urine Appearance Urine pH Ur Specific [place] Urine Protein Urine Glucose (UA) Urine Ketones Urine Blood Urine Nitrite Urine Bilirubin Urine Urobilinogen Ur Leukocyte Esterase Urine WBC (Auto) Urine RBC (Auto) Ur Epithelial Cells Urine Bacteria Urine Mucus Urine Yeast RPR Titer 11/10/18 11/10/18 11/10/18 05:45 05:45 07:00 WBC RBC Hgb Hct MCV MCH MCHC RDW Plt Count MPV Sodium 130 L Potassium 3.9 Chloride 92 L Carbon Dioxide 23 Anion Gap 15 BUN 9 Creatinine 0.8 Creat Clearance w eGFR > 60 POC Glucometer Random Glucose 446 H* Fasting Glucose Hemoglobin A1c % 11.5 H Calcium 9.9 Total Bilirubin 0.4 AST 32 ALT 40 Alkaline Phosphatase 165 H Ammonia Total Protein 6.7 Albumin 2.3 L Urine Color Urine Appearance Urine pH Ur Specific [place] Urine Protein Urine Glucose (UA) Urine Ketones Urine Blood Urine Nitrite Urine Bilirubin Urine Urobilinogen Ur Leukocyte Esterase Urine WBC (Auto) Urine RBC (Auto) Ur Epithelial Cells Urine Bacteria Urine Mucus Urine Yeast RPR Titer Nonreactive 11/10/18 11/10/18 07:35 09:00 WBC RBC Hgb Hct MCV MCH MCHC RDW Plt Count MPV Sodium Potassium Chloride Carbon Dioxide Anion Gap BUN Creatinine Creat Clearance w eGFR POC Glucometer > 400 Random Glucose Fasting Glucose 444 H* Hemoglobin A1c % Calcium Total Bilirubin AST ALT Alkaline Phosphatase Ammonia Total Protein Albumin Urine Color Urine Appearance Urine pH Ur Specific [place] Urine Protein Urine Glucose (UA) Urine Ketones Urine Blood Urine Nitrite Urine Bilirubin Urine Urobilinogen Ur Leukocyte Esterase Urine WBC (Auto) Urine RBC (Auto) Ur Epithelial Cells Urine Bacteria Urine Mucus Urine Yeast RPR Titer labs noted will continue to monitor BGM inject insulin as ordered along with 40units of lantus ammonia level ordered aaox3 ambulating no acute distress Assessment: 11/10/18 13:35 withdrawal sx Plan: continue detox increase fluids continue to monitor BGM
[2018-11-10] MEDS ORDERED: INSULIN SLIDING SCALE (NOVOLOG) 1 VIAL SQ SCH (13:40)
[2018-11-10] MEDS: CYCLOBENZAPRINE HCL 10 MG TABLET (FP) PO PRN (17:20)
[2018-11-10] MEDS: INSULIN SLIDING SCALE (NOVOLOG) 1 VIAL SQ SCH ×2 (17:21→23:04)
[2018-11-10] MEDS ORDERED: PATIENT'S OWN MEDICATION (NON-FORMULARY) (Insulin Glargine,Hum.Rec.Anlog 40 UNITS) SQ SCH (22:00)
[2018-11-10] MEDS: INSULIN (LEVEMIR) 100 UNITS/ML UNITS SQ SCH (23:03)
[2018-11-10] MEDS: LIDOCAINE PATCH REMOVAL MC SCH (23:04)
[2018-11-10] MEDS: THIAMINE HCL 100 MG TABLET (FP) PO SCH (23:05)
[2018-11-11] MEDS: MAG HYDROX/AL HYDROX/SIMETH 30 ML UNIT-DOSE CUP PO PRN ×2 (03:31→09:15)
[2018-11-11] MEDS: chlordiazePOXIDE HCL 25 MG CAPSULE PO SCH ×2 (06:00→10:48)
[2018-11-11] MEDS: hydrALAZINE HCL 25 MG TABLET (FP) PO SCH ×3 (06:12→22:27)
[2018-11-11] MEDS: INSULIN SLIDING SCALE (NOVOLOG) 1 VIAL SQ SCH ×4 (06:13→22:33)
[2018-11-11] MEDS: LACTULOSE 20 GM/30 ML UDC (FOR ORAL USE ONLY) PO SCH ×3 (06:17→22:32)
[2018-11-11] MEDS ORDERED: FLUCONAZOLE 50 MG TABLET PO ONE (08:15)
[2018-11-11] MEDS: PRENATAL VITAMINS W/ FOLIC ACID TABLET (FP) PO SCH (10:44)
[2018-11-11] MEDS: PREGABALIN 75 MG CAPSULE PO SCH (10:45)
[2018-11-11] MEDS: LISINOPRIL 10 MG TABLET (FP) PO SCH (10:45)
[2018-11-11] MEDS: NADOLOL 20 MG TABLET (FP) PO SCH (10:45)
[2018-11-11] MEDS: PANTOPRAZOLE 40 MG TABLET (FP) PO SCH (10:45)
[2018-11-11] MEDS: CYCLOBENZAPRINE HCL 10 MG TABLET (FP) PO PRN (10:46)
[2018-11-11] MEDS: LIDOCAINE 5% TOPICAL PATCH TP SCH (10:50)
[2018-11-11] MEDS ORDERED: INSULIN (NOVOLOG) ASPART 100 UNITS/ML 10ML VIAL ONE (11:04)
--- NOTE | 2018-11-11 13:58 | PN ---
[facility] CIWA - CIWA Score Nausea/Vomitin-No Nausea/No Vomiting Muscle Tremors: 3 Anxiety: 3 Agitation: 3 Paroxysmal Sweats: 2 Orientation: 0-Oriented Tacttile Disturbances: 0-None Auditory Disturbances: 0-None Visual Disturbances: 0-None Headache: 0-None Present CIWA-Ar Total Score: 11 S Progress Note (SOAP) Subjective: body aches sweats irritable agitation Objective: 11/11/18 13:56 Vital Signs Temperature 99.5 F 11/11/18 13:27 Pulse Rate 90 11/11/18 13:27 Respiratory Rate 18 11/11/18 13:27 Blood Pressure 126/66 11/11/18 13:27 O2 Sat by Pulse Oximetry (%) Laboratory Tests 11/09/18 11/09/18 11/09/18 11:41 11:45 15:30 WBC RBC Hgb Hct MCV MCH MCHC RDW Plt Count MPV Sodium Potassium Chloride Carbon Dioxide Anion Gap BUN Creatinine Creat Clearance w eGFR POC Glucometer > 400 Random Glucose Fasting Glucose Hemoglobin A1c % Calcium Total Bilirubin AST ALT Alkaline Phosphatase Ammonia 97.40 H Total Protein Albumin Urine Color Yellow Urine Appearance Slcloudy Urine pH 6.0 Ur Specific [place] 1.030 Urine Protein 2+ H Urine Glucose (UA) 3+ H Urine Ketones 1+ H Urine Blood 1+ H Urine Nitrite Negative Urine Bilirubin Negative Urine Urobilinogen Negative Ur Leukocyte Esterase Negative Urine WBC (Auto) 5 Urine RBC (Auto) 2 Ur Epithelial Cells Rare Urine Bacteria Rare Urine Mucus Rare Urine Yeast Rare RPR Titer 11/09/18 11/09/18 11/10/18 16:29 16:34 05:45 WBC 6.2 RBC 4.16 Hgb 10.9 Hct 34.2 MCV 82.1 MCH 26.1 MCHC 31.8 L RDW 16.9 H Plt Count 230 MPV 8.9 D Sodium Potassium Chloride Carbon Dioxide Anion Gap BUN Creatinine Creat Clearance w eGFR POC Glucometer > 400 > 400 Random Glucose Fasting Glucose Hemoglobin A1c % Calcium Total Bilirubin AST ALT Alkaline Phosphatase Ammonia Total Protein Albumin Urine Color Urine Appearance Urine pH Ur Specific [place] Urine Protein Urine Glucose (UA) Urine Ketones Urine Blood Urine Nitrite Urine Bilirubin Urine Urobilinogen Ur Leukocyte Esterase Urine WBC (Auto) Urine RBC (Auto) Ur Epithelial Cells Urine Bacteria Urine Mucus Urine Yeast RPR Titer 11/10/18 11/10/18 11/10/18 05:45 05:45 07:00 WBC RBC Hgb Hct MCV MCH MCHC RDW Plt Count MPV Sodium 130 L Potassium 3.9 Chloride 92 L Carbon Dioxide 23 Anion Gap 15 BUN 9 Creatinine 0.8 Creat Clearance w eGFR > 60 POC Glucometer Random Glucose 446 H* Fasting Glucose Hemoglobin A1c % 11.5 H Calcium 9.9 Total Bilirubin 0.4 AST 32 ALT 40 Alkaline Phosphatase 165 H Ammonia Total Protein 6.7 Albumin 2.3 L Urine Color Urine Appearance Urine pH Ur Specific [place] Urine Protein Urine Glucose (UA) Urine Ketones Urine Blood Urine Nitrite Urine Bilirubin Urine Urobilinogen Ur Leukocyte Esterase Urine WBC (Auto) Urine RBC (Auto) Ur Epithelial Cells Urine Bacteria Urine Mucus Urine Yeast RPR Titer Nonreactive 11/10/18 11/10/18 11/10/18 07:35 09:00 11:59 WBC RBC Hgb Hct MCV MCH MCHC RDW Plt Count MPV Sodium Potassium Chloride Carbon Dioxide Anion Gap BUN Creatinine Creat Clearance w eGFR POC Glucometer > 400 > 400 Random Glucose Fasting Glucose 444 H* Hemoglobin A1c % Calcium Total Bilirubin AST ALT Alkaline Phosphatase Ammonia Total Protein Albumin Urine Color Urine Appearance Urine pH Ur Specific [place] Urine Protein Urine Glucose (UA) Urine Ketones Urine Blood Urine Nitrite Urine Bilirubin Urine Urobilinogen Ur Leukocyte Esterase Urine WBC (Auto) Urine RBC (Auto) Ur Epithelial Cells Urine Bacteria Urine Mucus Urine Yeast RPR Titer 11/10/18 11/10/18 11/11/18 16:22 20:43 06:02 WBC RBC Hgb Hct MCV MCH MCHC RDW Plt Count MPV Sodium Potassium Chloride Carbon Dioxide Anion Gap BUN Creatinine Creat Clearance w eGFR POC Glucometer > 400 308 > 400 Random Glucose Fasting Glucose Hemoglobin A1c % Calcium Total Bilirubin AST ALT Alkaline Phosphatase Ammonia Total Protein Albumin Urine Color Urine Appearance Urine pH Ur Specific [place] Urine Protein Urine Glucose (UA) Urine Ketones Urine Blood Urine Nitrite Urine Bilirubin Urine Urobilinogen Ur Leukocyte Esterase Urine WBC (Auto) Urine RBC (Auto) Ur Epithelial Cells Urine Bacteria Urine Mucus Urine Yeast RPR Titer 11/11/18 11/11/18 11/11/18 06:04 06:52 07:30 WBC RBC Hgb Hct MCV MCH MCHC RDW Plt Count MPV Sodium Potassium Chloride Carbon Dioxide Anion Gap BUN Creatinine Creat Clearance w eGFR POC Glucometer > 400 > 400 Random Glucose Fasting Glucose 492 H* Hemoglobin A1c % Calcium Total Bilirubin AST ALT Alkaline Phosphatase Ammonia Total Protein Albumin Urine Color Urine Appearance Urine pH Ur Specific [place] Urine Protein Urine Glucose (UA) Urine Ketones Urine Blood Urine Nitrite Urine Bilirubin Urine Urobilinogen Ur Leukocyte Esterase Urine WBC (Auto) Urine RBC (Auto) Ur Epithelial Cells Urine Bacteria Urine Mucus Urine Yeast RPR Titer 11/11/18 09:00 WBC RBC Hgb Hct MCV MCH MCHC RDW Plt Count MPV Sodium Potassium Chloride Carbon Dioxide Anion Gap BUN Creatinine Creat Clearance w eGFR POC Glucometer Random Glucose Fasting Glucose Hemoglobin A1c % Calcium Total Bilirubin AST ALT Alkaline Phosphatase Ammonia 114.37 H Total Protein Albumin Urine Color Urine Appearance Urine pH Ur Specific [place] Urine Protein Urine Glucose (UA) Urine Ketones Urine Blood Urine Nitrite Urine Bilirubin Urine Urobilinogen Ur Leukocyte Esterase Urine WBC (Auto) Urine RBC (Auto) Ur Epithelial Cells Urine Bacteria Urine Mucus Urine Yeast RPR Titer labs noted pt will continue with laculose as ordered aaox3 ambulating no acute distress Assessment: 11/11/18 13:57 withdrawal sx Plan: continue detox increase water intake continue to monitor BGM and give insulin as ordered
--- NOTE | 2018-11-11 16:44 | PN ---
[facility] Progress Note Note: pt assessed she is AAO x 2, confused with her surrounding. Pt is a chronic diabetic with a last FS reading HI. Pt last BP111/68 pulse 89 temp 98.1. Pt will be sent to [place] ED and report given to AMINATA Olivares for assessment for DKA
[2018-11-11] MEDS: chlordiazePOXIDE 5 MG CAPSULE PO SCH ×2 (17:35→22:33)
[2018-11-11] MEDS: INSULIN (LEVEMIR) 100 UNITS/ML UNITS SQ SCH (22:32)
[2018-11-11] MEDS: LIDOCAINE PATCH REMOVAL MC SCH (22:33)
[2018-11-11] MEDS: THIAMINE HCL 100 MG TABLET (FP) PO SCH (22:35)
[2018-11-12] MEDS ORDERED: INSULIN (NOVOLOG) ASPART 100 UNITS/ML 10ML VIAL ONE (07:04)
[2018-11-12] MEDS: INSULIN SLIDING SCALE (NOVOLOG) 1 VIAL SQ SCH ×4 (07:33→21:41)
[2018-11-12] MEDS: hydrALAZINE HCL 25 MG TABLET (FP) PO SCH ×2 (07:33→15:00)
[2018-11-12] MEDS: LACTULOSE 20 GM/30 ML UDC (FOR ORAL USE ONLY) PO SCH ×3 (07:33→21:37)
[2018-11-12] MEDS: chlordiazePOXIDE 5 MG CAPSULE PO SCH ×2 (07:34→10:57)
[2018-11-12] MEDS: PRENATAL VITAMINS W/ FOLIC ACID TABLET (FP) PO SCH (10:57)
[2018-11-12] MEDS: LISINOPRIL 10 MG TABLET (FP) PO SCH (10:58)
[2018-11-12] MEDS: PANTOPRAZOLE 40 MG TABLET (FP) PO SCH (10:58)
[2018-11-12] MEDS: NADOLOL 20 MG TABLET (FP) PO SCH (10:59)
[2018-11-12] MEDS: PREGABALIN 75 MG CAPSULE PO SCH (11:00)
[2018-11-12] MEDS: LIDOCAINE 5% TOPICAL PATCH TP SCH (11:01)
--- NOTE | 2018-11-12 13:17 | PN ---
[facility] Progress Note Note: pt seen today after an ER visit. Pt states she feels much better and will like to be d/c to rehab early. Pt assessed no s/s of withdrawal noted. Pt will be d/ c to [facility] rehab today.
--- NOTE | 2018-11-12 13:19 | DS ---
[facility] Detox Discharge Summary Admission Date: 11/09/18 Discharge Date: 11/12/18 - History Present History: Alcohol Dependence - Physical Exam Results Vital Signs: Vital Signs Temperature 97.7 F 11/12/18 09:21 Pulse Rate 83 11/12/18 09:21 Respiratory Rate 18 11/12/18 09:21 Blood Pressure 105/65 11/12/18 09:21 O2 Sat by Pulse Oximetry (%) - Treatment Hospital Course: Detox Protocol Followed, Detoxed Safely, Responded well, Discharged Condition Good, Rehab Referral Accepted - Medication Discharge Medications: Ambulatory Orders Pregabalin [Lyrica] 150 mg PO DAILY 04/30/17 Insulin Glargine,Hum.rec.anlog [Lantus Solostar PEN -] 40 units SQ HS 10/20/17 Lisinopril [Prinivil] 10 mg PO DAILY 06/22/18 Trazodone HCl 300 mg PO HS 06/23/18 Hydralazine HCl 25 mg PO TID 08/25/18 Nadolol [Corgard -] 40 mg PO DAILY tablet 09/18/18 levoFLOXacin [Levaquin] 750 mg PO DAILY #7 tab 09/18/18 Esomeprazole Magnesium [Nexium 24Hr] 40 mg PO DAILY 11/09/18 Insulin (Novolog) [Novolog] 0 units SQ AC 11/09/18 - Diagnosis (1) Cocaine dependence Current Visit: Yes Status: Chronic Qualifiers: Substance use status: uncomplicated Qualified Code(s): F14.20 - Cocaine dependence, uncomplicated (2) Diabetic foot ulcer Current Visit: Yes Status: Chronic Qualifiers: Diabetic foot ulcer location: toe Diabetes mellitus type: type 2 Laterality: right (3) Hepatic encephalopathy Current Visit: Yes Status: Chronic (4) Increased ammonia level Current Visit: Yes Status: Chronic (5) NSTEMI (non-ST elevated myocardial infarction) Current Visit: No Status: Acute (6) Alcohol dependence with uncomplicated withdrawal Current Visit: Yes Status: Chronic (7) Chronic liver disease and cirrhosis Current Visit: Yes Status: Chronic (8) Diabetes mellitus, insulin dependent (IDDM), uncontrolled Current Visit: No Status: Chronic Qualifiers: Glycemic state: with hyperglycemia Qualified Code(s): E10.65 - Type 1 diabetes mellitus with hyperglycemia (9) GERD (gastroesophageal reflux disease) Current Visit: No Status: Chronic Qualifiers: Esophagitis presence: without esophagitis Qualified Code(s): K21.9 - Gastro -esophageal reflux disease without esophagitis (10) History of MA (myocardial infarction) Current Visit: No Status: Chronic (11) Hypertension Current Visit: No Status: Chronic Qualifiers: Hypertension type: essential hypertension Qualified Code(s): I10 - Essential (primary) hypertension (12) Nicotine dependence Current Visit: Yes Status: Chronic Qualifiers: Nicotine product type: cigarettes Substance use status: uncomplicated Qualified Code(s): F17.210 - Nicotine dependence, cigarettes, uncomplicated (13) Polyneuropathy Current Visit: Yes Status: Chronic - AMA Did Patient Leave Against Medical Advice: No (referred to [facility] rehab)
--- NOTE | 2018-11-12 13:40 | HP ---
RACHEL BLAIR Rehab Assess/Revision - Admission History Admitted to Rehab from: [facility] - Vital signs Vital Signs: Vital Signs Period Temp Pulse Resp BP Sys/Resendez Pulse Ox Last 24 Hr 97.7 F-98.1 F 80-89 16-20 98-111/51-68 - Findings Detox History & Physical reviewed: Yes Concur with findings: Yes Inpatient Rehab Admission - Initial Determination Are CD services needed?: Yes Free of communicable disease: Yes Not in need of hospitalization: Yes - Rehab Admission Criteria Previous failed treatment: Yes Poor recovery environment: Yes Comorbidities: Yes Lacks judgement: Yes
[2018-11-12] MEDS ORDERED: chlordiazePOXIDE HCL 10 MG CAPSULE PO SCH (17:00)
[2018-11-12] MEDS: THIAMINE HCL 100 MG TABLET (FP) PO SCH (21:35)
[2018-11-12] MEDS: LIDOCAINE PATCH REMOVAL MC SCH (21:36)
[2018-11-12] MEDS ORDERED: PT OWN MED DRAWER 7, Y5N ONE (21:38)
[2018-11-12] MEDS: INSULIN (LEVEMIR) 100 UNITS/ML UNITS SQ SCH (21:39)
[2018-11-12] MEDS: hydrALAZINE HCL 50 MG TABLET (FP) PO SCH (22:30)
[2018-11-12] MEDS ORDERED: INSULIN (LEVEMIR) 100 UNITS/ML UNITS SQ ONE (22:40)
[2018-11-13] MEDS: LACTULOSE 20 GM/30 ML UDC (FOR ORAL USE ONLY) PO SCH (06:28)
[2018-11-13 07:29] VITALS: TEMP 98.1
[2018-11-13] MEDS: hydrALAZINE HCL 50 MG TABLET (FP) PO SCH (07:53)
[2018-11-13] MEDS: INSULIN SLIDING SCALE (NOVOLOG) 1 VIAL SQ SCH ×2 (07:54→11:55)
[2018-11-13] MEDS ORDERED: INSULIN (NOVOLOG) ASPART 100 UNITS/ML 10ML VIAL ONE ×2 (08:24→11:55)
[2018-11-13 09:24] VITALS: BP 136/87; PULSE 99
[2018-11-13] MEDS: PANTOPRAZOLE 40 MG TABLET (FP) PO SCH (10:18)
[2018-11-13] MEDS: PRENATAL VITAMINS W/ FOLIC ACID TABLET (FP) PO SCH (10:18)
[2018-11-13] MEDS: LISINOPRIL 10 MG TABLET (FP) PO SCH (10:18)
[2018-11-13] MEDS: NADOLOL 20 MG TABLET (FP) PO SCH (10:18)
[2018-11-13] MEDS: CYCLOBENZAPRINE HCL 10 MG TABLET (FP) PO PRN (10:18)
[2018-11-13] MEDS: PREGABALIN 75 MG CAPSULE PO SCH (10:19)
[2018-11-13] MEDS: LIDOCAINE 5% TOPICAL PATCH TP SCH (10:19)
--- NOTE | 2018-11-13 12:45 | HP ---
Psychiatrist Admission - Data Date of interview: 11/13/18 Admission source: [address] [place] [address] Identifying data: This is one of the multiple admission to [address] [place] [address] for this 48 years old H single mother of 4,homeless,suppored by SSD. Medical History: Significant for IDDM,Liver cirrhosis,HTN. Psychiatric History: First contact with psychiatrist was in 2003 while being in sleep disorder clinic in [place].Patient was placed on ambien,Trazodone,stopped after short period of time..Patient detereorated after having nervious breakdown when her boyfriend from heart attack in 2014.Patient was admitted to [facility] in 2016 due to severe depression,drinking.Dx with PTSD.patient was placed on Remeron 15 mg po hs.No psychiatric OPD care.patient is not on psychotropic medications and is not willing to restart it at present. Physical/Sexual Abuse/Trauma History: denies Vital Signs: Vital Signs - 24 hr 11/12/18 11/12/18 11/13/18 14:06 22:00 00:30 Temperature 97.8 F Pulse Rate 97 H 101 H Respiratory 18 18 Rate Blood Pressure 128/84 145/86 11/13/18 11/13/18 07:28 09:23 Temperature 98.1 F Pulse Rate 98 H 99 H Respiratory 18 18 Rate Blood Pressure 115/79 136/87 Allergies/Adverse Reactions: Allergies Allergy/AdvReac Type Severity Reaction Status Date / Time fish derived Allergy Severe Swelling Verified 11/13/18 14:29 shellfish derived Allergy Severe Swelling Verified 11/13/18 14:29 No Known Drug Allergies Allergy Verified 11/13/18 14:29 SEAFOOD Allergy Severe Swelling Uncoded 11/13/18 14:29 Date of last physical exam: 11/11/18 Concur with the findings of this exam: Yes - Substance Abuse/Tx History Hx Alcohol Use: Yes (heavy drinker since 45 yo.) Hx Substance Use: Yes (crack since 46 yo,$10 daily) Substance Use Type: Alcohol, Cocaine Hx Substance Use Treatment: Yes (no significant clean time) Mental Status Exam - Mental Status Exam Alert and Oriented to: Time, Place, Person Cognitive Function: Grossly Intact Patient Appearance: Unkempt Mood: Nervous Affect: Mood Congruent, Labile Patient Behavior: Cooperative Speech Pattern: Clear Voice Loudness: Normal Thought Process: Goal Oriented Thought Disorder: Not Present Hallucinations: Denies Suicidal Ideation: Denies Homicidal Ideation: Denies Insight/Judgement: Fair Sleep: Fair Appetite: Good Muscle strength/Tone: Normal Gait/Station: Normal Psychiatric Findings - Problem List ([place] 1, 2,3) (1) Chronic liver disease and cirrhosis Status: Chronic (2) Cocaine dependence Status: Chronic Qualifiers: Substance use status: uncomplicated Qualified Code(s): F14.20 - Cocaine dependence, uncomplicated (3) Diabetic foot ulcer Status: Chronic Qualifiers: Diabetic foot ulcer location: toe Diabetes mellitus type: type 2 Laterality: right (4) Hepatic encephalopathy Status: Chronic (5) Nicotine dependence Status: Chronic Qualifiers: Nicotine product type: cigarettes Substance use status: uncomplicated Qualified Code(s): F17.210 - Nicotine dependence, cigarettes, uncomplicated (6) Alcohol dependence Status: Chronic (7) Diabetes mellitus, insulin dependent (IDDM), uncontrolled Status: Chronic Qualifiers: Glycemic state: with hyperglycemia Qualified Code(s): E10.65 - Type 1 diabetes mellitus with hyperglycemia (8) GERD (gastroesophageal reflux disease) Status: Chronic Qualifiers: Esophagitis presence: without esophagitis Qualified Code(s): K21.9 - Gastro -esophageal reflux disease without esophagitis (9) History of SC (myocardial infarction) Status: Chronic (10) Hypertension Status: Chronic Qualifiers: Hypertension type: essential hypertension Qualified Code(s): I10 - Essential (primary) hypertension - Initial Treatment Plan Initial Treatment Plan: Will monitor progress.
--- NOTE | 2018-11-13 13:36 | PN ---
S Progress Note Note: Pt states she would like to go to a alf and that rehab is not the right setting for her. Pt was in a alf facility and left to go for a family emergency- pt lost her bed- pt would like to go back. Vital Signs - 24 hr 11/12/18 11/12/18 11/13/18 14:06 22:00 00:30 Temperature 97.8 F Pulse Rate 97 H 101 H Respiratory 18 18 Rate Blood Pressure 128/84 145/86 11/13/18 11/13/18 07:28 09:23 Temperature 98.1 F Pulse Rate 98 H 99 H Respiratory 18 18 Rate Blood Pressure 115/79 136/87 f/s ~500- pt received insulin. a/p: diabetes- poorly controlled d/c today- pt says not benefitting from being here in rehab
--- NOTE | 2018-11-13 16:59 | PN ---
S Progress Note Note: patient decided to sign out today AMA.See medical staff notes for details.
== END 2018-11-13 13:55 | disposition left against medical advice (07) | DRG 894 ==
LOC: YASAS 10:05 → Y6N 11:43 → Y3E 11-12 13:31
PROVIDERS: ATTEND Psychiatry & Neurology Psychiatry
PROC: HZ2ZZZZ Detoxification Services for Substance Abuse Treatment (ICD-10-PCS; principal; 2018-11-09)
PROC: HZ42ZZZ Group Counseling for Substance Abuse Treatment, Cognitive-Behavioral (ICD-10-PCS; 2018-11-12)
DX: F10.230 Alcohol dependence with withdrawal, uncomplicated (principal); F14.20 Cocaine dependence, uncomplicated; G93.40 Encephalopathy, unspecified; E72.20 Disorder of urea cycle metabolism, unspecified; F17.210 Nicotine dependence, cigarettes, uncomplicated; F19.24 Other psychoactive substance dependence with psychoactive substance-induced mood disorder; E10.65 Type 1 diabetes mellitus with hyperglycemia; E10.621 Type 1 diabetes mellitus with foot ulcer; L97.519 Non-pressure chronic ulcer of other part of right foot with unspecified severity; K74.60 Unspecified cirrhosis of liver; K21.9 Gastro-esophageal reflux disease without esophagitis; I25.2 Old myocardial infarction; I10 Essential (primary) hypertension; G62.9 Polyneuropathy, unspecified; Z91.013 Allergy to seafood; Z91.14 Patient's other noncompliance with medication regimen; Z79.4 Long term (current) use of insulin; G47.00 Insomnia, unspecified; Z59.0 Homelessness
CPT/HCPCS: 36415; 71046-TC-FY; 76705-TC; 80053; 81003; 81015; 82009; 82140; 82947; 82962; 83036; 83690; 84702; 85025; 85027; 86593; 93005; 93010; 96372; 99284-25

== ENCOUNTER 2018-11-11 17:18 | Emergency (ER) | payer OTHER ==
[2018-11-11 17:41] VITALS: TEMP 98; BMI 29.0
--- NOTE | 2018-11-11 17:43 | PDOC ---
Rapid Medical Evaluation Chief Complaint: Lightheaded Time Seen by Provider: 11/11/18 17:41 Medical Evaluation: Allergies Allergy/AdvReac Type Severity Reaction Status Date / Time fish derived Allergy Severe Swelling Verified 11/09/18 11:14 shellfish derived Allergy Severe Swelling Verified 11/09/18 11:14 No Known Drug Allergies Allergy Verified 11/09/18 11:14 SEAFOOD Allergy Severe Swelling Uncoded 11/09/18 11:14 Vital Signs Temp Pulse Resp BP Pulse Ox 98.0 F 90 16 100/60 100 11/11/18 17:39 11/11/18 17:39 11/11/18 17:39 11/11/18 17:39 11/11/18 17:39 11/11/18 17:41 I have performed a brief in-person evaluation of this patient. The patient presents with a chief complaint of: dizziness x 2 days. Currently in detox at [facility] for etoh use. H/o ETOH abuse, cirrhosis, HTN and DM Pertinent physical exam findings: Stable, defer rest of exam to ED provider I have ordered the following:labs The patient will proceed to the ED for further evaluation Discharge Disposition - Diagnosis Dizziness - Referrals - Patient Instructions - Post Discharge Activity
--- NOTE | 2018-11-11 18:40 | PDOC ---
History of Present Illness - General Chief Complaint: Lightheaded Stated Complaint: WEAKNESS Time Seen by Provider: 11/11/18 17:41 History Source: Patient Exam Limitations: No Limitations Past History - Past Medical History Allergies/Adverse Reactions: Allergies Allergy/AdvReac Type Severity Reaction Status Date / Time fish derived Allergy Severe Swelling Verified 11/11/18 17:41 shellfish derived Allergy Severe Swelling Verified 11/11/18 17:41 No Known Drug Allergies Allergy Verified 11/11/18 17:41 SEAFOOD Allergy Severe Swelling Uncoded 11/11/18 17:41 Home Medications: Ambulatory Orders Pregabalin [Lyrica] 150 mg PO DAILY 04/30/17 Insulin Glargine,Hum.rec.anlog [Lantus Solostar PEN -] 40 units SQ HS 10/20/17 Lisinopril [Prinivil] 10 mg PO DAILY 06/22/18 Trazodone HCl 300 mg PO HS 06/23/18 Hydralazine HCl 25 mg PO TID 08/25/18 Nadolol [Corgard -] 40 mg PO DAILY tablet 09/18/18 levoFLOXacin [Levaquin] 750 mg PO DAILY #7 tab 09/18/18 Esomeprazole Magnesium [Nexium 24Hr] 40 mg PO DAILY 11/09/18 Insulin (Novolog) [Novolog] 0 units SQ AC 11/09/18 Anemia: No Asthma: No Cancer: No Cardiac Disorders: No CVA: No COPD: No CHF: No DVT: No Dementia: No Diabetes: Yes (iddm) GI Disorders: No Disorders: No HTN: Yes (non compliance) Hypercholesterolemia: No Kidney Stones: No Liver Disease: Yes (chronic liver disease/cirrhosis) Seizures: No Thyroid Disease: No - Surgical History Abdominal Surgery: Yes (TUBAL LIGATION IN 2005) Appendectomy: Yes (10/25/17) Cardiac Surgery: No Cholecystectomy: Yes (lap ) Lung Surgery: No Neurologic Surgery: No Orthopedic Surgery: Yes (neck, 11/30/2015 (fall);SX COCYX DUE TO OSTEOMYLITIS- 2010) - Reproductive History PID: No - Immunization History Immunization Up to Date: No - Suicide/Smoking/Psychosocial Hx Smoking History: Never smoked Have you smoked in the past 12 months: No Number of Cigarettes Smoked Daily: 0 Cigars Per Day: 0 'Breaking Loose' booklet given: 05/30/16 Hx Alcohol Use: Yes Drug/Substance Use Hx: Yes Substance Use Type: Alcohol, Cocaine Hx Substance Use Treatment: Yes (rehab06/22/18 to 07/01/18) *Physical Exam - Vital Signs Last Vital Signs Temp Pulse Resp BP Pulse Ox 98.0 F 90 16 100/60 100 11/11/18 17:39 11/11/18 17:39 11/11/18 17:39 11/11/18 17:39 11/11/18 17:39 Moderate Sedation - Procedure Monitoring Vital Signs: Procedure Monitoring Vital Signs Temperature 98.0 F 11/11/18 17:39 Pulse Rate 90 11/11/18 17:39 Respiratory Rate 16 11/11/18 17:39 Blood Pressure 100/60 11/11/18 17:39 O2 Sat by Pulse Oximetry (%) 100 11/11/18 17:39 *DC/Admit/Observation/Transfer Diagnosis at time of Disposition: Dizziness - Referrals - Patient Instructions - Post Discharge Activity
--- NOTE | 2018-11-11 18:58 | PDOC ---
History of Present Illness - General Chief Complaint: Lightheaded Stated Complaint: WEAKNESS Time Seen by Provider: 11/11/18 17:41 History Source: Patient Exam Limitations: No Limitations - History of Present Illness Initial Comments: 11/11/18 20:05 48 year old female with PMH HTN, IDDM, ETOH dependence, cocaine dependence, cirrhosis sent to ED for N/V/D and hyperglycemia from [facility] detox. Pt admitted to [facility] 11/09. Pt denied abdominal pain, chest pain, shortness of breath, lower extremity swelling, fever. Past History - Past Medical History Allergies/Adverse Reactions: Allergies Allergy/AdvReac Type Severity Reaction Status Date / Time fish derived Allergy Severe Swelling Verified 11/11/18 17:41 shellfish derived Allergy Severe Swelling Verified 11/11/18 17:41 No Known Drug Allergies Allergy Verified 11/11/18 17:41 SEAFOOD Allergy Severe Swelling Uncoded 11/11/18 17:41 Home Medications: Ambulatory Orders Pregabalin [Lyrica] 150 mg PO DAILY 04/30/17 Insulin Glargine,Hum.rec.anlog [Lantus Solostar PEN -] 40 units SQ HS 10/20/17 Lisinopril [Prinivil] 10 mg PO DAILY 06/22/18 Trazodone HCl 300 mg PO HS 06/23/18 Hydralazine HCl 25 mg PO TID 08/25/18 Nadolol [Corgard -] 40 mg PO DAILY tablet 09/18/18 levoFLOXacin [Levaquin] 750 mg PO DAILY #7 tab 09/18/18 Esomeprazole Magnesium [Nexium 24Hr] 40 mg PO DAILY 11/09/18 Insulin (Novolog) [Novolog] 0 units SQ AC 11/09/18 Anemia: No Asthma: No Cancer: No Cardiac Disorders: No CVA: No COPD: No CHF: No DVT: No Dementia: No Diabetes: Yes (iddm) GI Disorders: No Disorders: No HTN: Yes (non compliance) Hypercholesterolemia: No Kidney Stones: No Liver Disease: Yes (chronic liver disease/cirrhosis) Seizures: No Thyroid Disease: No - Surgical History Abdominal Surgery: Yes (TUBAL LIGATION IN 2005) Appendectomy: Yes (10/25/17) Cardiac Surgery: No Cholecystectomy: Yes (lap ) Lung Surgery: No Neurologic Surgery: No Orthopedic Surgery: Yes (neck, 11/30/2015 (fall);SX COCYX DUE TO OSTEOMYLITIS- 2011) - Reproductive History PID: No - Immunization History Immunization Up to Date: No - Suicide/Smoking/Psychosocial Hx Smoking History: Never smoked Have you smoked in the past 12 months: No Number of Cigarettes Smoked Daily: 0 Cigars Per Day: 0 'Breaking Loose' booklet given: 05/30/16 Hx Alcohol Use: Yes Drug/Substance Use Hx: Yes Substance Use Type: Alcohol, Cocaine Hx Substance Use Treatment: Yes (rehab06/22/18 to 07/01/18) Review of Systems - Review of Systems Able to Perform ROS?: Yes Comments:: 11/11/18 20:06 General: denied fever, chills. HEENT: denied sore throat, rhinorrhea, ear pain. Heart: denied chest pain, palpitations, syncope, lower extremity swelling, diaphoresis. Respiratory: denied shortness of breath, cough, sputum production, hemoptysis. Abdomen: admitted to abdominal pain, nausea, vomiting, diarrhea. denied constipation, blood in stool. : denied dysuria, increased urinary frequency, hematuria, urinary incontinence , flank pain. Back: denied back pain. Musculoskeletal: denied joint pain, muscle pain, joint swelling. 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: denied headache, dizziness, numbness, tingling, weakness. Skin: denied rash, laceration, abrasion. *Physical Exam - Vital Signs Last Vital Signs Temp Pulse Resp BP Pulse Ox 98.0 F 90 16 100/60 100 11/11/18 17:39 11/11/18 17:39 11/11/18 17:39 11/11/18 17:39 11/11/18 17:39 - Physical Exam Comments: 11/11/18 20:08 Constitutional: Well-nourished, Well-developed, appearing stated age. HEENT: head is normocephalic, atraumatic. EOMI. PERRLA. Neck: supple. Full ROM. Heart: regular rhythm. no murmurs, rubs or gallops. Lungs: clear to auscultation bilaterally. no crackles, rhonchi or wheezing. no stridor. Abdomen: soft, flat, tenderness to RUQ, epigastrium, LUQ. increased bowel sounds. no rebound, guarding, masses. Extremities: Peripheral pulses intact. No lower extremity edema. 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: CN 2-12 grossly intact. Moves all four extremities. Psych: awake, alert, oriented x3. Follows commands. Answers questions appropriately. Vital Signs - Vital Signs #2 Blood Pressure: 101/54 MAP: 69 BP Location: Right Arm Blood Pressure Position: Supine Pulse Rate: 81 Respiratory Rate: 12 Moderate Sedation - Procedure Monitoring Vital Signs: Procedure Monitoring Vital Signs Temperature 98.0 F 11/11/18 17:39 Pulse Rate 90 11/11/18 17:39 Respiratory Rate 16 11/11/18 17:39 Blood Pressure 100/60 11/11/18 17:39 O2 Sat by Pulse Oximetry (%) 100 11/11/18 17:39 ED Treatment Course - LABORATORY CBC & Chemistry Diagram: 11/11/18 20:32 11/11/18 19:40 Medical Decision Making - Medical Decision Making 11/11/18 20:08 48 year old female with above PMH sent to ED from [facility] for N/V/D and hyperglycemia. Initial Vital Signs Temp Pulse Resp BP Pulse Ox 98.0 F 90 16 100/60 100 11/11/18 17:39 11/11/18 17:39 11/11/18 17:39 11/11/18 17:39 11/11/18 17:39 Afebrile. No tachycardia. No tachypnea. Mild hypotension. No hypoxia on room air. US guided IV was attempted, some blood was able to be drawn but a VBG was not obtained. Will defer IV access for now. Imaging ordered: RUQ US, KUB, CXR Labs ordered: CBC, CMP, acetone, ammonia, serum test, lipase EKG performed at 1830: rate 84, regular rhythm, normal axis, normal intervals, no acute ST changes. 11/11/18 20:49 CMP Sodium 132 mmol/L (136-145) L 11/11/18 19:40 Potassium 4.1 mmol/L (3.5-5.1) 11/11/18 19:40 Chloride 97 mmol/L (98-107) L 11/11/18 19:40 Carbon Dioxide 24 mmol/L (21-32) 11/11/18 19:40 Anion Gap 11 MMOL/L (8-16) 11/11/18 19:40 BUN 15 mg/dL (7-18) 11/11/18 19:40 Creatinine 0.8 mg/dL (0.55-1.3) 11/11/18 19:40 Creat Clearance w eGFR > 60 (>60) 11/11/18 19:40 Random Glucose 539 mg/dL (74-106) H* 11/11/18 19:40 Calcium 8.1 mg/dL (8.5-10.1) L 11/11/18 19:40 Total Bilirubin 0.3 mg/dL (0.2-1) 11/11/18 19:40 AST 25 U/L (15-37) 11/11/18 19:40 ALT 29 U/L (13-61) 11/11/18 19:40 Alkaline Phosphatase 274 U/L (45-117) H 11/11/18 19:40 Total Protein 5.8 g/dl (6.4-8.2) L 11/11/18 19:40 Albumin 1.8 g/dl (3.4-5.0) L 11/11/18 19:40 Lipase 381 U/L (73-393) 11/11/18 19:40 Beta HCG, Quant < 1.0 mIU/ml 11/11/18 19:40 Mild hyponatremia. - Pt is hyperglycemic - Corrected sodium = Hyperglycemia. Elevated ALP. - Pt has chronic elevated ALP based on prior lab work. Lipase normal. Serum testing negative. No anion gap. CBC WBC 6.1 K/mm3 (4.0-10.0) 11/11/18 20:32 RBC 3.93 M/mm3 (3.60-5.2) 11/11/18 20:32 Hgb 10.9 GM/dL (10.7-15.3) 11/11/18 20:32 Hct 32.4 % (32.4-45.2) 11/11/18 20:32 MCV 82.3 fl (80-96) 11/11/18 20:32 MCH 27.6 pg (25.7-33.7) 11/11/18 20:32 MCHC 33.5 g/dl (32.0-36.0) 11/11/18 20:32 RDW 17.4 % (11.6-15.6) H 11/11/18 20:32 Plt Count 202 K/MM3 (134-434) 11/11/18 20:32 MPV 8.8 fl (7.5-11.1) 11/11/18 20:32 Absolute Neuts (auto) 3.5 K/mm3 (1.5-8.0) 11/11/18 20:32 Neutrophils % 57.0 % (42.8-82.8) 11/11/18 20:32 Lymphocytes % 32.3 % (8-40) 11/11/18 20:32 Monocytes % 10.4 % (3.8-10.2) H 11/11/18 20:32 Eosinophils % 0.1 % (0-4.5) D 11/11/18 20:32 Basophils % 0.2 % (0-2.0) 11/11/18 20:32 Nucleated RBC % 0 % (0-0) 11/11/18 20:32 No leukocytosis. No anemia. No left shift. Ammonia level hemolyzed. - Pt is not confused, orientedx3, alert, awake, speaking clear sentences. Hepatic encephalopathy unlikely. Plan for hyperglycemia: 8 units SQ regular insulin PO hydration 11/11/18 21:43 RUQ US report:borderline liver size. no interval change since prior US . no obvious mass lesion. partial imaging of TIPS shunt in place. patency cannot be evaluated secondary to pt's inability to fully cooperate. s/p cholecystectomy. 11/11/18 23:15 POC glucose: too high to read Medications ordered: 10 units SQ insulin. 11/11/18 23:44 Vital Signs Temperature 98.0 F 11/11/18 17:39 Pulse Rate 81 11/11/18 23:44 Respiratory Rate 12 11/11/18 23:44 Blood Pressure 101/54 L 11/11/18 23:44 O2 Sat by Pulse Oximetry (%) 97 11/11/18 20:51 11/12/18 00:30 Pt reassessed, reported no abdominal pain, no nausea, no vomiting. 11/12/18 00:39 POC glucose: too high to read. Unable to control hyperglycemia. Pt needs IV access for IV insulin. Pt will need to be admitted. Microblog sent at 0115 11/12/18 01:51 Case discussed with admitting team, their recommendation is to give 18 units levemir and recheck glucose in hourly. 11/12/18 03:01 POC glucose 416. 11/12/18 04:05 POC glucose 413. Glucose level tapering. Pt is noncompliant with medication, she may have glucose levels in the 400s at baseline. Pt to return to detox. 11/12/18 04:17 [facility] stated she has a bed and can return. *DC/Admit/Observation/Transfer Diagnosis at time of Disposition: Hyperglycemia, Alcohol withdrawal - Discharge Dispostion Condition at time of disposition: Stable Decision to Admit order: No - Referrals - Patient Instructions Additional Instructions: Aruna Corral was seen today for nausea, vomiting, diarrhea, hyperglycemia. She was given levemir and her last POC glucose was 413. She is noncompliant with her diabetes medication, and she may have glucose in the 400s at baseline. Pt clinically is not encephalopathic. Pt was alert and orientedx3 here. She is cleared to return to Detox. - Post Discharge Activity
[2018-11-11] MEDS ORDERED: MAG HYDROX/AL HYDROX/SIMETH 30 ML UNIT-DOSE CUP PO ONE (19:18)
[2018-11-11] MEDS ORDERED: MAG HYDROX/AL HYDROX/SIMETH 30 ML UNIT-DOSE CUP ONE (19:18)
--- NOTE | 2018-11-11 20:04 | PDOC ---
Attending Attestation - HPI HPI: 11/11/18 20:05 The patient is a 48 year old female from [facility], with a significant past medical history of IDDM, HTN, Chronic liver disease, cocaine and alcohol dependence, who presents to the ED complaining of high glucose, confusion, nausea, vomiting and diarrhea onset today. She reports that her vomit and diarrhea as non bloody. She denies any abdominal pain but on presentation, when the abdomen is palpated in the epigastric region she does endorse pain. The patient denies chest pain, shortness of breath, headache and dizziness. Denies fever, chills, constipation. Denies dysuria, frequency, urgency and hematuria. Allergies: Seafood Past surgical history: Tubal ligation, Appendectomy, cholecystectomy, neck, (fall);SX COCYX DUE TO OSTEOMYLITIS- 2010 Social History: Alcohol and Cocaine use <Blade Piedra - Last Filed: 11/11/18 20:05> - Resident Resident Name: Geraldine Mcwilliams - ED Attending Attestation I have performed the following: I have examined & evaluated the patient, The case was reviewed & discussed with the resident, I agree w/resident's findings & plan, Exceptions are as noted - Physicial Exam PE: 11/11/18 21:25 Agree with exam as documented by resident AOx3 on interview +TTP RUQ, epigastric region, no guarding, no rebound - Medical Decision Making 11/11/18 21:26 Pt with disorientation reported by sender, oriented here but with high glucose, hx of recent admission for hepatic encephalopathy Consider hepatic enceph, dka, sequelae of detox, intra-abdominal surgical path less likely f/u labs, us, analgesia re-eval 11/12/18 01:16 Nausea, vomiting resolved, pt denies any abdominal px. FSG persistently "Hi" 11/12/18 04:11 Patient reports chronic non-compliance with DM treatment plan, baseline FSG likely elevated. FSG trending downward and stable in the 400's. No systemic symptoms, acute complaints resolved. <Roel Villagomez - Last Filed: 11/12/18 04:13>
[2018-11-11 20:39] LABS: ALBUMIN 1.8 g/dl (3.4-5.0); ALK PHOS 274 U/L (45-117); ANION GAP 11 MMOL/L (8-16); BILIRUBIN,TOTAL 0.3 mg/dL (0.2-1); BLOOD UREA NITROGEN 15 mg/dL (7-18); CALCIUM 8.1 mg/dL (8.5-10.1); CHLORIDE 97 mmol/L (98-107); CO2 24 mmol/L (21-32); CREATININE 0.8 mg/dL (0.55-1.3); LIPASE 381 U/L (73-393); POTASSIUM 4.1 mmol/L (3.5-5.1); SGOT/AST 25 U/L (15-37); SGPT/ALT 29 U/L (13-61); SODIUM 132 mmol/L (136-145); TOT PROT 5.8 g/dl (6.4-8.2)
[2018-11-11 20:42] LABS: GLUCOSE,RANDOM 539 mg/dL (74-106)
[2018-11-11 20:50] LABS: BASO % 0.2 % (0-2.0); EOS % 0.1 % (0-4.5); HEMATOCRIT 32.4 % (32.4-45.2); HEMOGLOBIN 10.9 GM/dL (10.7-15.3); LYMPH % 32.3 % (8-40); MCH 27.6 pg (25.7-33.7); MCHC 33.5 g/dl (32.0-36.0); MEAN CELL VOLUME 82.3 fl (80-96); MEAN PLT VOLUME 8.8 fl (7.5-11.1); MONO % 10.4 % (3.8-10.2); PLATELET COUNT 202 K/MM3 (134-434); RBC 3.93 M/mm3 (3.60-5.2); RDW 17.4 % (11.6-15.6); WHITE BLOOD COUNT 6.1 K/mm3 (4.0-10.0)
[2018-11-11 20:52] LABS: ACETONE SERUM TRACE (NEGATIVE)
[2018-11-11] MEDS ORDERED: INSULIN REGULAR HUMAN 100 UNITS/ML *VIAL SQ ONE ×2 (21:38→23:15)
[2018-11-12] MEDS ORDERED: INSULIN (LEVEMIR) 100 UNITS/ML UNITS SQ ONE (01:48)
[2018-11-12 05:15] VITALS: BP 101/66; PULSE 80
--- NOTE | 2018-11-12 12:49 | EKG ---
Test Reason : Blood Pressure : / mmHG Vent. Rate : 084 BPM Atrial Rate : 084 BPM P-R Int : 130 ms QRS Dur : 084 ms QT Int : 400 ms P-R-T Axes : 059 020 029 degrees QTc Int : 472 ms NORMAL SINUS RHYTHM CANNOT RULE OUT ANTERIOR INFARCT , AGE UNDETERMINED ABNORMAL ECG WHEN COMPARED WITH ECG OF 17-SEP-2018 09:01, NONSPECIFIC T WAVE ABNORMALITY, WORSE IN LATERAL LEADS Confirmed by KIM BLAIR, OCTAVIO ([id number]) on 11/12/2018 12:48:35 PM Referred By: Confirmed By:OCTAVIO ALVAREZ MD
== END 2018-11-12 05:16 | disposition home or self-care (01) ==
LOC: JER 17:18
PROC: 3E013VG Introduction of Insulin into Subcutaneous Tissue, Percutaneous Approach (ICD-10-PCS; principal; 2018-11-11)
DX: F10.239 Alcohol dependence with withdrawal, unspecified (principal); E11.65 Type 2 diabetes mellitus with hyperglycemia; I10 Essential (primary) hypertension
CPT/HCPCS: 36415; 71046-TC-FY; 76705-TC; 80053; 82009; 83690; 84702; 85025; 93005; 93010; 96372; 99284-25

== ENCOUNTER 2018-11-13 14:25 | Inpatient (IN) | payer OTHER ==
[2018-11-13 14:45] VITALS: BMI 30.9
--- NOTE | 2018-11-13 15:33 | EKG ---
Test Reason : Blood Pressure : / mmHG Vent. Rate : 080 BPM Atrial Rate : 080 BPM P-R Int : 144 ms QRS Dur : 088 ms QT Int : 412 ms P-R-T Axes : 039 011 020 degrees QTc Int : 475 ms NORMAL SINUS RHYTHM NORMAL ECG WHEN COMPARED WITH ECG OF 11-NOV-2018 18:30, NONSPECIFIC T WAVE ABNORMALITY NO LONGER EVIDENT IN LATERAL LEADS Confirmed by BAIRON LATHAM MD ([id number]) on 11/13/2018 3:32:27 PM Referred By: Confirmed By:BAIRON LATHAM MD
--- NOTE | 2018-11-13 16:17 | PDOC ---
History of Present Illness - General Chief Complaint: Nausea/Vomiting Stated Complaint: VOMTING,NAUSEA Time Seen by Provider: 11/13/18 14:33 History Source: Patient Exam Limitations: No Limitations - History of Present Illness Travel History: No Initial Comments: 11/13/18 15:13 48 year old female with history of diabetes, EtOH abuse and cocaine use presents to the ED with complaints of generalized abdominal pain, nausea, and vomiting for the past 3-4days. Patient states has been at [facility] stating she has not getting proper treatment for the above and so walked out of the program called 911 from a pay phone and was brought here by ambulance. Patient denies drug use or etoh use over the past 3 days and is seeking medical care presently. The patient chest pain, sob, fever, chills, dysuria, or bloody stools Timing/Duration: reports: constant Quality: reports: mild, cramping Abdominal Pain Onset Location: reports: generalized abdomen Pain Radiation: reports: no radiation Activities at Onset: reports: none Aggravating Factors: improves with: None Alleviating Factors: improves with: None Past History - Travel Close contact w/someone who was outside of country & ill: No - Past Medical History Allergies/Adverse Reactions: Allergies Allergy/AdvReac Type Severity Reaction Status Date / Time fish derived Allergy Severe Swelling Verified 11/13/18 14:29 shellfish derived Allergy Severe Swelling Verified 11/13/18 14:29 No Known Drug Allergies Allergy Verified 11/13/18 14:29 SEAFOOD Allergy Severe Swelling Uncoded 11/13/18 14:29 Home Medications: Ambulatory Orders Insulin Glargine,Hum.rec.anlog [Lantus Solostar PEN -] 40 units SQ HS 10/20/17 Trazodone HCl 150 mg PO HS 06/23/18 Esomeprazole Magnesium [Nexium 24Hr] 40 mg PO DAILY 11/09/18 Insulin (Novolog) [Novolog] 0 units SQ AC 11/09/18 Insulin Sliding Scale [Novolog Vial Sliding Scale -] 1 vial SQ ACHS #1 units Lisinopril [Prinivil] 10 mg PO DAILY #30 tablet 11/13/18 Nadolol [Corgard -] 40 mg PO DAILY #30 tablet 11/13/18 Pregabalin [Lyrica] 150 mg PO DAILY #30 capsule MDD 1 11/13/18 Anemia: No Asthma: No Cancer: No Cardiac Disorders: No CVA: No COPD: No CHF: No DVT: No Dementia: No Diabetes: Yes (iddm) GI Disorders: No Disorders: No HTN: Yes (non compliance) Hypercholesterolemia: No Kidney Stones: No Liver Disease: Yes Seizures: No Thyroid Disease: No - Surgical History Abdominal Surgery: Yes (TUBAL LIGATION IN 2005) Appendectomy: Yes (10/25/17) Cardiac Surgery: No Cholecystectomy: Yes (lap ) Lung Surgery: No Neurologic Surgery: No Orthopedic Surgery: Yes (neck, 11/30/2015 (fall);SX COCYX DUE TO OSTEOMYLITIS- 2010) - Reproductive History PID: No - Immunization History Immunization Up to Date: No - Suicide/Smoking/Psychosocial Hx Smoking History: Never smoked Have you smoked in the past 12 months: No Number of Cigarettes Smoked Daily: 0 Cigars Per Day: 0 'Breaking Loose' booklet given: 05/30/16 Hx Alcohol Use: Yes (in a program now) Drug/Substance Use Hx: Yes Substance Use Type: Alcohol, Cocaine Hx Substance Use Treatment: Yes (rehab06/22/18 to 07/01/18) Patient Lives Alone: Yes Lives with/in: lives alone Abd/GI Specific PMHX - Complaint Specific PMHX Hepatitis: No Pancreatitis: No Review of Systems - Review of Systems Able to Perform ROS?: Yes Constitutional: Yes: Weakness HEENTM: No: Symptoms Reported Respiratory: No: Symptoms reported Cardiac (ROS): No: Symptoms Reported ABD/GI: Yes: Diarrhea, Nausea, Vomiting, Abdominal cramping : No: Symptoms Reported Musculoskeletal: No: Symptoms Reported Integumentary: No: Symptoms Reported 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: Yes: Weakness Psychiatric: Yes: Other Hematologic/Lymphatic: No: Symptoms Reported *Physical Exam - Vital Signs Last Vital Signs Temp Pulse Resp BP Pulse Ox 98.5 F 81 18 113/74 100 11/13/18 14:29 11/13/18 14:29 11/13/18 14:29 11/13/18 14:29 11/13/18 14:29 - Physical Exam General Appearance: Yes: Nourished, Appropriately Dressed. No: Apparent Distress HEENT: positive: EOMI, HIGINIO, TMs Normal, Pharynx Normal (dry) Neck: positive: Supple Respiratory/Chest: positive: Lungs Clear. negative: Respiratory Distress, Accessory Muscle Use Cardiovascular: positive: Regular Rhythm, Regular Rate. negative: Murmur Gastrointestinal/Abdominal: positive: Normal Bowel Sounds, Soft, Tenderness ( generalized). negative: Distended, Guarding, Rebound Extremity: negative: Pedal Edema Integumentary: positive: Normal Color, Warm, Moist Neurologic: positive: Motor Strength 5/5. negative: Normal Mood/Affect ( appears tired and irritable) Moderate Sedation - Procedure Monitoring Vital Signs: Procedure Monitoring Vital Signs Temperature 98.5 F 11/13/18 14:29 Pulse Rate 81 11/13/18 14:29 Respiratory Rate 18 11/13/18 14:29 Blood Pressure 113/74 11/13/18 14:29 O2 Sat by Pulse Oximetry (%) 100 11/13/18 14:29 ED Treatment Course - LABORATORY CBC & Chemistry Diagram: 11/13/18 16:16 11/13/18 21:40 - RADIOLOGY Radiology Studies Ordered: Category Date Time Status ABDOMEN & PELVIS CT W/O CONTR [CT] Stat CT Scan 11/13/18 16:10 Ordered Medical Decision Making - Medical Decision Making 11/13/18 15:29 Complaint : Nausea vomiting abdominal cramping and diarrhea. Exam: generalized abdominal tenderness mouth appears dry, patient appears groggy. Plan: Labs, IV fluids, abdominal CT, acetone, urine 11/13/18 17:23 Laboratory Tests 11/13/18 11/13/18 11/13/18 16:16 16:16 16:16 WBC 3.3 L Hgb 11.3 Hct 34.5 RDW 18.1 H Absolute Neuts (auto) 1.4 L Lymphocytes % 42.4 H D Monocytes % 14.9 H Sodium 133 L Potassium 4.1 Chloride 104 Carbon Dioxide 20 L Random Glucose 576 H* Calcium 8.2 L Magnesium 1.7 L Alkaline Phosphatase 247 H Total Protein 6.3 L Albumin 2.0 L Lipase 349 Urine Glucose (UA) 3+ H Urine Ketones Negative Urine HCG, Qual Negative Benzodiazepines Screen Acetone, Qual Pending 11/13/18 16:16 WBC Hgb Hct RDW Absolute Neuts (auto) Lymphocytes % Monocytes % Sodium Potassium Chloride Carbon Dioxide Random Glucose Calcium Magnesium Alkaline Phosphatase Total Protein Albumin Lipase Urine Glucose (UA) Urine Ketones Urine HCG, Qual Benzodiazepines Screen Positive A* Acetone, Qual Patient refused second attempt for IV. We will utilize ultrasound for placement. Patient ordered for second liter of fluid and 1 g of magnesium. 11/13/18 18:11 Case discussed hospitalist and will place on ED observation *DC/Admit/Observation/Transfer Diagnosis at time of Disposition: Elevated glucose level, Abdominal pain, Hyponatremia - Discharge Dispostion Decision to Admit order: Yes - Referrals - Patient Instructions - Post Discharge Activity
[2018-11-13 16:32] LABS: HEMATOCRIT 34.5 % (32.4-45.2); HEMOGLOBIN 11.3 GM/dL (10.7-15.3); LYMPH % 42.4 % (8-40); MCH 27.4 pg (25.7-33.7); MCHC 32.7 g/dl (32.0-36.0); MEAN CELL VOLUME 83.8 fl (80-96); MEAN PLT VOLUME 8.5 fl (7.5-11.1); MONO % 14.9 % (3.8-10.2); NEUT % 42.7 % (42.8-82.8); PLATELET COUNT 191 K/MM3 (134-434); RBC 4.11 M/mm3 (3.60-5.2); RDW 18.1 % (11.6-15.6); WHITE BLOOD COUNT 3.3 K/mm3 (4.0-10.0)
[2018-11-13 16:47] LABS: URINE APPEARANCE CLEAR; URINE BILIRUBIN NEGATIVE (<2.0 mg/dL); URINE COLOR STRAW; URINE GLUCOSE (UA) 3+ (NEGATIVE); URINE KETONE NEGATIVE (NEGATIVE); URINE LEUK ESTERASE NEGATIVE (NEGATIVE); URINE NITRITE NEGATIVE (NEGATIVE); URINE PROTEIN NEGATIVE (NEGATIVE); URINE UROBILINOGEN NEGATIVE mg/dL (0.2-1.0)
[2018-11-13 16:49] LABS: COCAINE, UR NEGATIVE ng/ml (CUTOFF=300); METHADONE, UR NEGATIVE ng/ml (CUTOFF=300); OPIATES, URI NEGATIVE ng/ml (CUTOFF=300); PHENCYCLIDINE,URINE NEGATIVE ng/ml (CUTOFF=25); URINE AMPHETAMINES NEGATIVE ng/ml (CUTOFF=500); URINE BARBITURATES NEGATIVE ng/ml (CUTOFF=200)
[2018-11-13 16:58] LABS: URINE BENZODIAZEPINES POSITIVE ng/ml (CUTOFF=200)
[2018-11-13 17:04] LABS: HCG,QUALITATIVE URINE Negative
[2018-11-13 17:08] LABS: ALK PHOS 247 U/L (45-117); ANION GAP 10 MMOL/L (8-16); BILIRUBIN,TOTAL 0.2 mg/dL (0.2-1); BLOOD UREA NITROGEN 9 mg/dL (7-18); CALCIUM 8.2 mg/dL (8.5-10.1); CHLORIDE 104 mmol/L (98-107); CO2 20 mmol/L (21-32); CREATININE 0.9 mg/dL (0.55-1.3); LIPASE 349 U/L (73-393); MAGNESIUM 1.7 mg/dL (1.8-2.4); POTASSIUM 4.1 mmol/L (3.5-5.1); SGOT/AST 35 U/L (15-37); SGPT/ALT 41 U/L (13-61); SODIUM 133 mmol/L (136-145); TOT PROT 6.3 g/dl (6.4-8.2)
[2018-11-13 17:12] LABS: GLUCOSE,RANDOM 576 mg/dL (74-106)
[2018-11-13] MEDS ORDERED: SODIUM CHLORIDE 1,000 ML IV STA (17:23)
[2018-11-13] MEDS ORDERED: MAGNESIUM SULF 50% (8.12 MEQ/2 ML-1 GM VIAL) IVPB ONE (17:23)
[2018-11-13 17:36] LABS: ACETONE SERUM NEGATIVE (NEGATIVE)
[2018-11-13] MEDS ORDERED: morphine CARPU-JECT 2 MG/1 ML DISP.SYRIN SQ ONE (18:27)
--- NOTE | 2018-11-13 19:11 | PN ---
Teaching Attending Note Name of Resident: Jose Guadalupe Jordan ATTENDING PHYSICIAN STATEMENT I saw and evaluated the patient. I discussed the case and management plan with the resident. SUBJECTIVE: 48 year old female with DM 2, HTN, GERD, Depression, Polysubstance Abuse, including cocaine and alcohol, history of alcohol withdrawal, History of cirrhosis and Hepatic Encephalopathy, CAD s/p NSTEMI, presents to ED after signing out from [facility]. She recently underwent detox at [facility]. Her complaints include generalized myalgia, abdominal discomfort, nausea, watery stool. She denies diarrhea, hematochezia, melena, or vomiting. No fever/chills. She is asking for Morphine. OBJECTIVE: Afebrile, Hemodynamically Stable. Last Vital Signs Temp Pulse Resp BP Pulse Ox 98.5 F 81 18 113/74 100 11/13/18 14:29 11/13/18 14:29 11/13/18 14:29 11/13/18 14:29 11/13/18 14:29 HEENT - Atraumatic , Normocephalic Heart - S1, S2, SM Lungs - clear to auscultation Abdomen - Soft, generalized tenderness, no guarding/rebound. Bowel Sounds normal. Extremities - bilateral venous stasis skin changes. Neuro - AAO x 3. No tremor. Tone/Power normal all 4 extremities. Laboratory Results - last 24 hr 11/13/18 11/13/18 11/13/18 16:16 16:16 16:16 WBC 3.3 L RBC 4.11 Hgb 11.3 Hct 34.5 MCV 83.8 MCH 27.4 MCHC 32.7 RDW 18.1 H Plt Count 191 MPV 8.5 Absolute Neuts (auto) 1.4 L Neutrophils % 42.7 L D Lymphocytes % 42.4 H D Monocytes % 14.9 H Eosinophils % 0.0 D Basophils % 0.0 Nucleated RBC % 0 Sodium 133 L Potassium 4.1 Chloride 104 Carbon Dioxide 20 L Anion Gap 10 BUN 9 Creatinine 0.9 Creat Clearance w eGFR > 60 Random Glucose 576 H* Calcium 8.2 L Magnesium 1.7 L Total Bilirubin 0.2 AST 35 ALT 41 Alkaline Phosphatase 247 H Total Protein 6.3 L Albumin 2.0 L Lipase 349 Urine Color Straw Urine Appearance Clear Urine pH 6.0 Ur Specific [place] 1.025 Urine Protein Negative Urine Glucose (UA) 3+ H Urine Ketones Negative Urine Blood Negative Urine Nitrite Negative Urine Bilirubin Negative Urine Urobilinogen Negative Ur Leukocyte Esterase Negative Urine HCG, Qual Negative Opiates Screen Methadone Screen Barbiturate Screen Phencyclidine Screen Ur Amphetamines Screen MDMA (Ecstasy) Screen Benzodiazepines Screen Cocaine Screen U Marijuana (THC) Screen Acetone, Qual Negative L 11/13/18 16:16 WBC RBC Hgb Hct MCV MCH MCHC RDW Plt Count MPV Absolute Neuts (auto) Neutrophils % Lymphocytes % Monocytes % Eosinophils % Basophils % Nucleated RBC % Sodium Potassium Chloride Carbon Dioxide Anion Gap BUN Creatinine Creat Clearance w eGFR Random Glucose Calcium Magnesium Total Bilirubin AST ALT Alkaline Phosphatase Total Protein Albumin Lipase Urine Color Urine Appearance Urine pH Ur Specific [place] Urine Protein Urine Glucose (UA) Urine Ketones Urine Blood Urine Nitrite Urine Bilirubin Urine Urobilinogen Ur Leukocyte Esterase Urine HCG, Qual Opiates Screen Negative Methadone Screen Negative Barbiturate Screen Negative Phencyclidine Screen Negative Ur Amphetamines Screen Negative MDMA (Ecstasy) Screen Negative Benzodiazepines Screen Positive A* Cocaine Screen Negative U Marijuana (THC) Screen Negative Acetone, Qual ASSESSMENT AND PLAN: 48 year old female with DM 2, HTN, GERD, Depression, Polysubstance Abuse, including cocaine and alcohol, history of alcohol withdrawal, History of cirrhosis and Hepatic Encephalopathy, CAD s/p NSTEMI, presents to ED after signing out from [facility]. She recently underwent detox at [facility]. Her complaints include generalized myalgia, abdominal discomfort, nausea, watery stool. She denies diarrhea, hematochezia, melena, or vomiting. No fever/chills. She is asking for Morphine. 1. Non-specific abdominal discomfort Associated nausea - no vomiting. No hematemesis, hematochezia, melena. Hx of Cirrhosis s/p TIPS No ascites clinically. Awaiting abdominal imaging - may need IR guided paracentesis if presence of ascitic fluid. Currently afebrile without leukocytosis. Will treat with gentle IV hydration and monitor. Anti-emetic for symptomatic relief. Stool for culture and Cdiff if any further diarrhea. 2. Hyperglycemia with background DM 2 Bicarb 20, AG 10 No convincing DKA. Will hydrate and recheck labs. Novolog sliding scale in addition to home dose Glargine. 3. HTN - continue Lisinopril and Nadolol 4. History of Cirrhosis with portal hypertension s/p TIPS continue Nadolol. No evidence of ascites or decompensation/fluid overload currently. If any ascitic fluid on abdominal imaging, will consider ascitic tap given abdominal discomfort. 5. GERD - continue Nexium 6. History of Polysubstance abuse including Alcohol and cocaine. Utox pos only for benzodiazepines. No evidence clinically of ongoing alcohol withdrawal. Recently underwent detox at [facility]. Will monitor for alcohol withdrawal. Give Thiamine, Folate, MVI 7. Hypomagnesemia - repleted in ED - will monitor. 8. PTSD/Depression - normally on Trazodone. DVT Px - Heparin SQ GI Px - PPI.
[2018-11-13] MEDS: FOLIC ACID 1 MG TABLET (FP) PO SCH (20:29)
[2018-11-13] MEDS: MULTIVITAMINS (DAILY MVI) TABLET (FP) PO SCH (20:29)
[2018-11-13] MEDS: THIAMINE HCL 100 MG TABLET (FP) PO SCH (20:29)
[2018-11-13] MEDS ORDERED: morphine SULFATE 4 MG/ML VIAL SQ ONE (20:30)
[2018-11-13] MEDS ORDERED: PROMETHAZINE HCL 25 MG TABLET PO ONE (21:00)
[2018-11-13] MEDS ORDERED: MORPHINE SULFATE 2 MG/ML VIAL IVPUSH ONE (21:00)
[2018-11-13] MEDS: SODIUM CHLORIDE 0.45% 1,000 ML IV SCH (21:15)
[2018-11-13] MEDS: HEPARIN NA (PORCINE) 5,000 UNITS/ML 1ML VIAL SQ SCH (21:18)
[2018-11-13 22:43] LABS: ALBUMIN 1.7 g/dl (3.4-5.0); ALK PHOS 218 U/L (45-117); ANION GAP 9 MMOL/L (8-16); BILIRUBIN,TOTAL 0.2 mg/dL (0.2-1); BLOOD UREA NITROGEN 10 mg/dL (7-18); CALCIUM 7.9 mg/dL (8.5-10.1); CHLORIDE 105 mmol/L (98-107); CO2 20 mmol/L (21-32); CREATININE 0.6 mg/dL (0.55-1.3); POTASSIUM 4.3 mmol/L (3.5-5.1); SGOT/AST 45 U/L (15-37); SGPT/ALT 39 U/L (13-61); SODIUM 134 mmol/L (136-145); TOT PROT 5.6 g/dl (6.4-8.2)
[2018-11-13 22:48] LABS: GLUCOSE,RANDOM 471 mg/dL (74-106)
--- NOTE | 2018-11-13 22:48 | HP ---
CHIEF COMPLAINT: abdominal pain PCP: none HISTORY OF PRESENT ILLNESS: Pt is a 48 y/o F with PMH polysubstance abuse (EtOH, cocaine), cirrhosis, GERD, Depression, [place] (2018), HTN who presented to ED from [facility] with complaint of abdominal pain. Pt was apparently at [facility] for rehab having recently finished detox for EtOH and Crack cocaine 6 d ago. She began experiencing abdominal pain there, which she felt was not being managed appropriately, so she left on her own accord and called 911 from a pay phone and asked the ambulance to bring her here. She states she has been vomiting or "spitting up" a green substance, which she insists is bile 25 times overnight. She was not able to produce a sample. She also complains of frequent diarrhea, which she states has occurred "twenty-five hundred times" since yesterday. She states she has a small amount of blood streaking when wiping, but no bloody or dark colored stools. She also complains of feeling generally unwell. Pt has been refusing attempts at placing an IV. She was counselled on the importance of establishing IV access. ER course was notable for: (1) WBC 3.3, Na 133, glc 576, Mg 1.7 (2) (3) Recent Travel: denies PAST MEDICAL HISTORY: EtOH, Cirrhosis, DM, GERD, Depression, [place] (2018), HTN PAST SURGICAL HISTORY: tubal ligation, cholecystectomy, tonsilectomy, debriedment of OM on coccyx and R 3rd toe in the past Social History: Smoking: denies Alcohol: EtOH abuse Drugs: crack cocaine Family History: denies Allergies fish derived Allergy (Severe, Verified 11/13/18 14:29) Swelling SEAFOOD = FISH + SHELLFISH shellfish derived Allergy (Severe, Verified 11/13/18 14:29) Swelling SEAFOOD = FISH + SHELLFISH No Known Drug Allergies Allergy (Verified 11/13/18 14:29) SEAFOOD Allergy (Severe, Uncoded 11/13/18 14:29) Swelling HOME MEDICATIONS: Home Medications Medication Instructions Recorded Insulin Glargine,Hum.rec.anlog 40 units SQ HS 10/20/17 [Lantus Solostar PEN -] Trazodone HCl 150 mg PO HS 06/23/18 Esomeprazole Magnesium [Nexium 40 mg PO DAILY 11/09/18 24Hr] Insulin (Novolog) [Novolog] 0 units SQ AC 11/09/18 Insulin Sliding Scale [Novolog 1 vial SQ ACHS #1 units 11/13/18 Vial Sliding Scale -] Lisinopril [Prinivil] 10 mg PO DAILY #30 tablet 11/13/18 Nadolol [Corgard -] 40 mg PO DAILY #30 tablet 11/13/18 Pregabalin [Lyrica] 150 mg PO DAILY #30 capsule MDD 1 11/13/18 REVIEW OF SYSTEMS CONSTITUTIONAL: Absent: fever, chills, diaphoresis, generalized weakness, malaise, loss of appetite, weight change HEENT: Absent: rhinorrhea, nasal congestion, throat pain, throat swelling, difficulty swallowing, mouth swelling, ear pain, eye pain, visual changes CARDIOVASCULAR: Absent: chest pain, syncope, palpitations, irregular heart rate, lightheadedness , peripheral edema RESPIRATORY: Absent: cough, shortness of breath, dyspnea with exertion, orthopnea, wheezing, stridor, hemoptysis GASTROINTESTINAL: abdominal pain Absent: , abdominal distension, nausea, vomiting, diarrhea, constipation, melena , hematochezia GENITOURINARY: Absent: dysuria, frequency, urgency, hesitancy, hematuria, flank pain, genital pain MUSCULOSKELETAL: Absent: myalgia, arthralgia, joint swelling, back pain, neck pain SKIN: Absent: rash, itching, pallor HEMATOLOGIC/IMMUNOLOGIC: Absent: easy bleeding, easy bruising, lymphadenopathy, frequent infections ENDOCRINE: Absent: unexplained weight gain, unexplained weight loss, heat intolerance, cold intolerance NEUROLOGIC: Absent: headache, focal weakness or paresthesias, dizziness, unsteady gait, seizure, mental status changes, bladder or bowel incontinence PSYCHIATRIC: Absent: anxiety, depression, suicidal or homicidal ideation, hallucinations. PHYSICAL EXAMINATION Vital Signs - 24 hr 11/13/18 14:29 Temperature 98.5 F Pulse Rate 81 Respiratory 18 Rate Blood Pressure 113/74 O2 Sat by Pulse 100 Oximetry (%) Gen: Uncomfortable appearing, AAOx3 HEENT: PERRL, EOMI Neck: supple, No jvd Cardio: rrr, normal s1s2, LUSB 3/6 midsystolic murmur Pulm: cta b/l Abd: diffusely tender with guarding, no tenderness/guarding on distracted exam. Soft, nondistended Extremities: no edema, 1+ pulses Laboratory Results - last 24 hr 11/13/18 11/13/18 11/13/18 16:16 16:16 16:16 WBC 3.3 L RBC 4.11 Hgb 11.3 Hct 34.5 MCV 83.8 MCH 27.4 MCHC 32.7 RDW 18.1 H Plt Count 191 MPV 8.5 Absolute Neuts (auto) 1.4 L Neutrophils % 42.7 L D Lymphocytes % 42.4 H D Monocytes % 14.9 H Eosinophils % 0.0 D Basophils % 0.0 Nucleated RBC % 0 Sodium 133 L Potassium 4.1 Chloride 104 Carbon Dioxide 20 L Anion Gap 10 BUN 9 Creatinine 0.9 Creat Clearance w eGFR > 60 Random Glucose 576 H* Calcium 8.2 L Magnesium 1.7 L Total Bilirubin 0.2 AST 35 ALT 41 Alkaline Phosphatase 247 H Total Protein 6.3 L Albumin 2.0 L Lipase 349 Urine Color Straw Urine Appearance Clear Urine pH 6.0 Ur Specific [place] 1.025 Urine Protein Negative Urine Glucose (UA) 3+ H Urine Ketones Negative Urine Blood Negative Urine Nitrite Negative Urine Bilirubin Negative Urine Urobilinogen Negative Ur Leukocyte Esterase Negative Urine HCG, Qual Negative Opiates Screen Methadone Screen Barbiturate Screen Phencyclidine Screen Ur Amphetamines Screen MDMA (Ecstasy) Screen Benzodiazepines Screen Cocaine Screen U Marijuana (THC) Screen Acetone, Qual Negative L 11/13/18 16:16 WBC RBC Hgb Hct MCV MCH MCHC RDW Plt Count MPV Absolute Neuts (auto) Neutrophils % Lymphocytes % Monocytes % Eosinophils % Basophils % Nucleated RBC % Sodium Potassium Chloride Carbon Dioxide Anion Gap BUN Creatinine Creat Clearance w eGFR Random Glucose Calcium Magnesium Total Bilirubin AST ALT Alkaline Phosphatase Total Protein Albumin Lipase Urine Color Urine Appearance Urine pH Ur Specific [place] Urine Protein Urine Glucose (UA) Urine Ketones Urine Blood Urine Nitrite Urine Bilirubin Urine Urobilinogen Ur Leukocyte Esterase Urine HCG, Qual Opiates Screen Negative Methadone Screen Negative Barbiturate Screen Negative Phencyclidine Screen Negative Ur Amphetamines Screen Negative MDMA (Ecstasy) Screen Negative Benzodiazepines Screen Positive A* Cocaine Screen Negative U Marijuana (THC) Screen Negative Acetone, Qual ASSESSMENT/PLAN: Pt is a 48 y/o F with PMH polysubstance abuse (EtOH, cocaine), cirrhosis, GERD, Depression, [place] (2018), HTN who presented to ED from [facility] with complaint of abdominal pain. Pt is on obs for intractable pain. #Abd pain -pt refusing tylenol/motrin/toradol and demanding morphine by name -pt refusing attempts at IV placement -refusing CT until she receives morphine -Pain meds ordered -will attempt to get CTAP when possible #Hyperglycemia -Ins 10 once -Repeat BGM -BGM -ISS #Hypomagnesemia -repleted by ED -follow am labs #Hyponatremia. Mild -NS 125 to start if/when pt allows IV #PPx -Hep SubQ Dispo -Obs Visit type - Emergency Visit Emergency Visit: Yes ED Registration Date: 11/13/18 Care time: The patient presented to the Emergency Department on the above date and was hospitalized for further evaluation of their emergent condition. - New Patient This patient is new to me today: Yes Date on this admission: 11/13/18 - Critical Care Critical Care patient: No
[2018-11-13] MEDS: INSULIN SLIDING SCALE (NOVOLOG) 1 VIAL SQ SCH (22:50)
[2018-11-13] MEDS ORDERED: INSULIN (NOVOLOG) ASPART 100 UNITS/ML 10ML VIAL SQ ONE (23:00)
[2018-11-14] MEDS: HEPARIN NA (PORCINE) 5,000 UNITS/ML 1ML VIAL SQ SCH ×3 (06:15→22:00)
[2018-11-14] MEDS ORDERED: INSULIN (NOVOLOG) ASPART 100 UNITS/ML 10ML VIAL SQ ONE (06:37)
[2018-11-14] MEDS: INSULIN SLIDING SCALE (NOVOLOG) 1 VIAL SQ SCH ×5 (06:49→22:00)
[2018-11-14] MEDS ORDERED: INSULIN (NOVOLOG) ASPART 100 UNITS/ML 10ML VIAL ONE (07:10)
[2018-11-14] MEDS ORDERED: INSULIN (LEVEMIR) 100 UNITS/ML UNITS SQ ONE ×2 (09:08→12:12)
[2018-11-14] MEDS: THIAMINE HCL 100 MG TABLET (FP) PO SCH (09:24)
[2018-11-14] MEDS: MULTIVITAMINS (DAILY MVI) TABLET (FP) PO SCH (09:24)
[2018-11-14] MEDS: FOLIC ACID 1 MG TABLET (FP) PO SCH (09:24)
--- NOTE | 2018-11-14 16:16 | PN ---
Progress Note (short form) - Note Progress Note: 48 year old female with DM 2, HTN, GERD, Depression, Polysubstance Abuse, including cocaine and alcohol, history of alcohol withdrawal, History of cirrhosis and Hepatic Encephalopathy, CAD s/p NSTEMI, presented to ED after signing out from [facility] AM. She recently underwent detox at [facility]. Her complaints include generalized myalgia, abdominal discomfort, nausea, watery stool. She denies hematochezia, melena, or vomiting. No fever/chills. She continues to ask for Morphine. She refers loose stool overnight but not documented or seen by nursing. No further nausea. No vomiting. No fever/chills. PHYSICAL EXAM Afebrile, Hemodynamically stbale. Last Vital Signs Temp Pulse Resp BP Pulse Ox 98.5 F 84 20 113/70 98 11/14/18 14:55 11/14/18 14:55 11/14/18 14:55 11/14/18 14:55 11/14/18 12:00 HEENT - Atraumatic, normocephalic Heart - S1, S2, RRR lungs - clear to auscultation. Abdomen - mild generalized tenderness. No guarding/rebound. Bowel Sounds normal. Extremities - Chronic venous stasis skin changes. No edema. Neuro - AAO x 3. Tone/Power normal all 4 extremities. INVESTIGATIONS Laboratory Results - last 24 hr 11/13/18 11/13/18 11/13/18 16:16 16:16 16:16 WBC 3.3 L RBC 4.11 Hgb 11.3 Hct 34.5 MCV 83.8 MCH 27.4 MCHC 32.7 RDW 18.1 H Plt Count 191 MPV 8.5 Absolute Neuts (auto) 1.4 L Neutrophils % 42.7 L D Lymphocytes % 42.4 H D Monocytes % 14.9 H Eosinophils % 0.0 D Basophils % 0.0 Nucleated RBC % 0 Sodium 133 L Potassium 4.1 Chloride 104 Carbon Dioxide 20 L Anion Gap 10 BUN 9 Creatinine 0.9 Creat Clearance w eGFR > 60 POC Glucometer Random Glucose 576 H* Calcium 8.2 L Magnesium 1.7 L Total Bilirubin 0.2 AST 35 ALT 41 Alkaline Phosphatase 247 H Creatine Kinase Total Protein 6.3 L Albumin 2.0 L Lipase 349 Urine Color Straw Urine Appearance Clear Urine pH 6.0 Ur Specific [place] 1.025 Urine Protein Negative Urine Glucose (UA) 3+ H Urine Ketones Negative Urine Blood Negative Urine Nitrite Negative Urine Bilirubin Negative Urine Urobilinogen Negative Ur Leukocyte Esterase Negative Urine HCG, Qual Negative Opiates Screen Methadone Screen Barbiturate Screen Phencyclidine Screen Ur Amphetamines Screen MDMA (Ecstasy) Screen Benzodiazepines Screen Cocaine Screen U Marijuana (THC) Screen Acetone, Qual Negative L 11/13/18 11/13/18 11/14/18 16:16 21:40 11:51 WBC RBC Hgb Hct MCV MCH MCHC RDW Plt Count MPV Absolute Neuts (auto) Neutrophils % Lymphocytes % Monocytes % Eosinophils % Basophils % Nucleated RBC % Sodium 134 L Potassium 4.3 Chloride 105 Carbon Dioxide 20 L Anion Gap 9 BUN 10 Creatinine 0.6 Creat Clearance w eGFR > 60 POC Glucometer 299 Random Glucose 471 H* Calcium 7.9 L Magnesium Total Bilirubin 0.2 AST 45 H ALT 39 Alkaline Phosphatase 218 H Creatine Kinase 82 Total Protein 5.6 L Albumin 1.7 L Lipase Urine Color Urine Appearance Urine pH Ur Specific [place] Urine Protein Urine Glucose (UA) Urine Ketones Urine Blood Urine Nitrite Urine Bilirubin Urine Urobilinogen Ur Leukocyte Esterase Urine HCG, Qual Opiates Screen Negative Methadone Screen Negative Barbiturate Screen Negative Phencyclidine Screen Negative Ur Amphetamines Screen Negative MDMA (Ecstasy) Screen Negative Benzodiazepines Screen Positive A* Cocaine Screen Negative U Marijuana (THC) Screen Negative Acetone, Qual Current Medications Generic Name Dose Route Start Last Admin Trade Name Freq PRN Reason Stop Dose Admin Folic Acid 1 mg 11/13/18 19:45 11/14/18 09:24 Folic Acid - PO 1 mg DAILY PENDING SALE TO [facility] Administration Heparin Sodium (Porcine) 5,000 unit 11/13/18 21:01 11/14/18 15:31 Heparin - SQ Not Given TID PENDING SALE TO [facility] Sodium Chloride 1,000 mls @ 125 mls/hr 11/13/18 21:00 11/14/18 16:17 1/2 Normal Saline IV 125 mls/hr ASDIR PENDING SALE TO [facility] Administration Insulin Aspart 1 vial 11/13/18 22:00 11/14/18 12:05 Novolog Vial Sliding Scale - SQ 6 unit ACHS SIRIA Administration Protocol Insulin Detemir 30 units 11/15/18 22:00 Levemir Vial SQ HS PENDING SALE TO [facility] Multivitamins/Minerals/Vitamin C 1 tab 11/13/18 19:45 11/14/18 09:24 Tab-A-Vit - PO 1 tab DAILY SIRIA Administration Thiamine HCl 100 mg 11/13/18 19:45 11/14/18 09:24 Vitamin B1 - PO 100 mg DAILY SIRIA Administration ASSESSMENT/PLAN: 48 year old female with DM 2, HTN, GERD, Depression, Polysubstance Abuse, including cocaine and alcohol, history of alcohol withdrawal, History of cirrhosis and Hepatic Encephalopathy, CAD s/p NSTEMI, presented to ED after signing out from [facility] AMA. She recently underwent detox at [facility]. Her complaints include generalized myalgia, abdominal discomfort, nausea, watery stool. She denies hematochezia, melena, or vomiting. No fever/chills. She continues to ask for Morphine. 1. Non-specific abdominal discomfort - ongoing - likely secondary to Colitis Associated nausea - no vomiting. No hematemesis, hematochezia, melena. Hx of Cirrhosis s/p TIPS CT A/P - small amt ascites with sigmoid colitis. Currently afebrile without leukocytosis. Continue gentle IV hydration and monitor. Antibiotics held for now. Gastroenterology consulted. Stool for culture and Cdiff if any further diarrhea. 2. Hyperglycemia with background DM 2 Novolog sliding scale in addition to Glargine (dose reduced from 40 to 30 units) . 3. HTN - continue Lisinopril and Nadolol 4. History of Cirrhosis with portal hypertension s/p TIPS Continue Nadolol. No clinical evidence of ascites or decompensation/fluid overload currently. Small amt of free fluid on CT A/P. Does not appear to be infected - no fever/ chills/leukocytosis. 5. GERD - continue Nexium 6. History of Polysubstance abuse including Alcohol and cocaine. Utox pos only for benzodiazepines. No evidence clinically of ongoing alcohol withdrawal. Recently underwent detox at [facility]. Will monitor for alcohol withdrawal. Give Thiamine, Folate, MVI 7. Hypomagnesemia - repleted in ED - will monitor. 8. PTSD/Depression - normally on Trazodone. DVT Px - Heparin SQ GI Px - Famotidine Visit type - Emergency Visit Emergency Visit: Yes ED Registration Date: 11/13/18 Care time: The patient presented to the Emergency Department on the above date and was hospitalized for further evaluation of their emergent condition. - New Patient This patient is new to me today: No - Critical Care Critical Care patient: No - Discharge Referral Referred to [facility] Med [facility].C.: No
[2018-11-14] MEDS: SODIUM CHLORIDE 0.45% 1,000 ML IV SCH ×2 (16:17→22:00)
[2018-11-14] MEDS ORDERED: MORPHINE SULFATE 2 MG/ML VIAL IVPUSH ONE (17:47)
[2018-11-14] MEDS: PREGABALIN 75 MG CAPSULE PO SCH (18:48)
[2018-11-14] MEDS: LISINOPRIL 10 MG TABLET (FP) PO SCH (18:48)
[2018-11-14] MEDS: NADOLOL 40 MG TABLET (FP) PO SCH (19:48)
[2018-11-14] MEDS: RANITIDINE HCL 150 MG TABLET (FP) PO SCH (22:00)
[2018-11-14] MEDS: traZODone HCL 50 MG TABLET (FP) PO SCH (22:00)
--- NOTE | 2018-11-14 23:07 | CON.GI ---
Consult Consult Specialty:: GI Referred by:: Hospitalist Service Reason for Consultation:: "Colitis" - History of Present Illness Chief Complaint: "I have cirrhosis and my liver felt like a ball" History of Present Illness: 48F transferred from Detox for evaluation of vomiting. Her blood glucose was noted to be >500. She currently resides in the [place]. She has a history of chronic liver disease. She was admitted to [facility] in 2016 and at that time described a history of alcoholic liver cirrhosis and that she underwent TIPS in [place] in 2009 for intractable ascites. She had poor medical care at that time and was living in [place]. She was evaluated by profile grinder technician Dr. Abdon Lee during an admission 04/16 as well . Abdominal US performed 04/18/17 revealed hepatomegaly with coarse echotexture c/w fatty infiltration vs. hepatocellular disease. the biliary tract appeared normal as did visualized portions of the pancreas. It also revealed TIPS. She was evaluated by profile grinder technician Dr. Avni Resendiz 01/18 for evaluation of altered mental status and elevated ammonia level. EGD performed at that time revealed small varices, portal gastropahy and duodenitis. She was admitted 09/17 for hyperglycemia and was treated for hepatic encephalopathy. Her ammonia level in the ED at that time was was above 300. Admission notes at that time revealed non-compliance with lactulose at the [facility] along with complaints of dizziness and fall 3 days prior. Currently, there has been no vomiting. A CT scan of the abdomen revealed retained food in the stomach, normal stool butden in the colon and underdistention vs. thickening of the distal colon. thickened vs. underdistended urinary bladder was also described. she denies rectal bleeding or diarrhea and states that her pain is specifically in the RUQ. the CT scan also revealed hepatomegaly. - History Source History Provided By: Patient - Past Medical History Cardio/Vascular: Yes: HTN, Other (DM ) Gastrointestinal: Yes: GERD Hepatobiliary: Yes: Cirrhosis (Alcoholic cirrhosis with history of TIPS for intractible ascites), Other (REFRACTORY ASCITES AND CIRRHOSIS, HEP B/ C NEG PER PATIENT) ...LMP: 11/02/18 Psych: Yes: Addictions (alcohol abuse), Other (Substance abuse) Endocrine: Yes: Diabetes Mellitus Additional Medical History: peripheral neuropathy - Past Surgical History Past Surgical History: Yes: Cholecystectomy, Tubal Ligation Additional Surgical History: TIPS - Alcohol/Substance Use Hx Alcohol Use: Yes (in a program now) History of Substance Use: reports: Cocaine, Prescription (history of poly substance abuse an has a prescription bottle of pills that are not hers) - Smoking History Smoking history: Never smoked Have you smoked in the past 12 months: No Aproximately how many cigarettes per day: 0 - Social History Usual Living Arrangement: Alone ADL: Independent Occupation: disabled History of Recent Travel: No Home Medications - Allergies Allergies/Adverse Reactions: Allergies Allergy/AdvReac Type Severity Reaction Status Date / Time fish derived Allergy Severe Swelling Verified 11/13/18 14:29 shellfish derived Allergy Severe Swelling Verified 11/13/18 14:29 No Known Drug Allergies Allergy Verified 11/13/18 14:29 SEAFOOD Allergy Severe Swelling Uncoded 11/13/18 14:29 - Home Medications Home Medications: Ambulatory Orders Insulin Glargine,Hum.rec.anlog [Lantus Solostar PEN -] 40 units SQ HS 10/20/17 Trazodone HCl 150 mg PO HS 06/23/18 Esomeprazole Magnesium [Nexium 24Hr] 40 mg PO DAILY 11/09/18 Insulin (Novolog) [Novolog] 0 units SQ AC 11/09/18 Insulin Sliding Scale [Novolog Vial Sliding Scale -] 1 vial SQ ACHS #1 units Lisinopril [Prinivil] 10 mg PO DAILY #30 tablet 11/13/18 Nadolol [Corgard -] 40 mg PO DAILY #30 tablet 11/13/18 Pregabalin [Lyrica] 150 mg PO DAILY #30 capsule MDD 1 11/13/18 Family Disease History - Family Disease History Family Disease History: Diabetes: Grandparent (alcohol), Father (alive: 68: HTN) , Mother (alive: 67), Other: Grandparent, Father, Mother Review of Systems - Review of Systems Constitutional: denies: Chills, Fever, Unintentional Wgt. Loss Cardiovascular: denies: Chest Pain Respiratory: denies: SOB Gastrointestinal: reports: Abdominal Pain, Nausea, Vomiting. denies: Constipation, Diarrhea, Melena, Rectal Bleeding, Vomiting Blood Physical Exam-GI Vital Signs: Vital Signs Temperature 98.8 F 11/14/18 18:00 Pulse Rate 86 11/14/18 18:00 Respiratory Rate 20 11/14/18 18:00 Blood Pressure 114/65 11/14/18 18:00 O2 Sat by Pulse Oximetry (%) 98 11/14/18 12:00 Constitutional: Yes: Calm Eyes: No: Sclera Icterus Cardiovascular: Yes: Regular Rate and Rhythm Respiratory: Yes: CTA Bilaterally Gastrointestinal Inspection: No: Distention ...Auscultate: Yes: Normoactive Bowel Sounds ...Palpate: Yes: Tenderness (RUQ) ...Percussion: No: Tympanitic Edema: No 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: Yes: Alert, Oriented (x 3). No: Asterixis Labs: CBC, BMP 11/13/18 16:16 11/13/18 21:40 Imaging - Results Cat Scan: Report Reviewed, Image Reviewed Problem List - Problems (1) Abdominal pain Assessment/Plan: No colitis symptoms. Suspect that the thickened sigmoid colon relfects underdistention and hypoalbuminemic state as well. The ballder was described as thickened as well. ? if urology evaluation is warranted. plan re: f/u of thickened bladder per primary team. I suspect that her blood glucose of > 500 is likely contributing to her nausea and vomiting as well as dyspeptic symptoms. Ms. Corral describes RUQ pain. ALP is elevated but chronically so. Obtain abd US and keep on clear liquids as she's being admitted for abdominal pain. Obtain Triple phase MRI/MRCP of the abdomen with and without contrast Also: Should be maintained on Rifaximin 550mg PO BID, Lactulose 30g BID. These are not listed as home medications Q6 Months AFP tumor marker and abd US to screen for hepatoma With her TIPS, Hepatic encephalopathy may become refractory to treat. Should Ideally be evaluated at a Liver center Code(s): R10.9 - UNSPECIFIED ABDOMINAL PAIN Qualifiers: Abdominal location: right upper quadrant Qualified Code(s): R10.11 - Right upper quadrant pain
[2018-11-15] MEDS: HEPARIN NA (PORCINE) 5,000 UNITS/ML 1ML VIAL SQ SCH ×3 (05:57→22:31)
[2018-11-15] MEDS: INSULIN SLIDING SCALE (NOVOLOG) 1 VIAL SQ SCH ×4 (06:04→21:40)
[2018-11-15 06:53] LABS: HEMATOCRIT 32.9 % (32.4-45.2); HEMOGLOBIN 10.4 GM/dL (10.7-15.3); LYMPH % 21.6 % (8-40); MCH 25.9 pg (25.7-33.7); MCHC 31.6 g/dl (32.0-36.0); MEAN CELL VOLUME 81.7 fl (80-96); MEAN PLT VOLUME 8.2 fl (7.5-11.1); MONO % 12.8 % (3.8-10.2); NEUT % 65.6 % (42.8-82.8); PLATELET COUNT 182 K/MM3 (134-434); RBC 4.02 M/mm3 (3.60-5.2); RDW 17.4 % (11.6-15.6); WHITE BLOOD COUNT 3.3 K/mm3 (4.0-10.0)
[2018-11-15 08:21] LABS: ALBUMIN 1.7 g/dl (3.4-5.0); ALK PHOS 148 U/L (45-117); ANION GAP 9 MMOL/L (8-16); BILIRUBIN,TOTAL 0.3 mg/dL (0.2-1); BLOOD UREA NITROGEN 11 mg/dL (7-18); CALCIUM 7.1 mg/dL (8.5-10.1); CHLORIDE 104 mmol/L (98-107); CO2 19 mmol/L (21-32); CREATININE 0.7 mg/dL (0.55-1.3); MAGNESIUM 1.5 mg/dL (1.8-2.4); POTASSIUM 4.2 mmol/L (3.5-5.1); SGOT/AST 45 U/L (15-37); SGPT/ALT 46 U/L (13-61); SODIUM 133 mmol/L (136-145); TOT PROT 5.7 g/dl (6.4-8.2)
[2018-11-15] MEDS ORDERED: MAGNESIUM SULF 50% (8.12 MEQ/2 ML-1 GM VIAL) IVPB ONE ×2 (09:35→18:38)
[2018-11-15 09:44] LABS: GLUCOSE,RANDOM 371 mg/dL (74-106)
[2018-11-15] MEDS: RANITIDINE HCL 150 MG TABLET (FP) PO SCH ×2 (10:02→21:33)
[2018-11-15] MEDS: PREGABALIN 75 MG CAPSULE PO SCH (10:02)
[2018-11-15] MEDS: MULTIVITAMINS (DAILY MVI) TABLET (FP) PO SCH (10:02)
[2018-11-15] MEDS: FOLIC ACID 1 MG TABLET (FP) PO SCH (10:02)
[2018-11-15] MEDS: THIAMINE HCL 100 MG TABLET (FP) PO SCH (10:02)
[2018-11-15] MEDS: LISINOPRIL 10 MG TABLET (FP) PO SCH (10:03)
[2018-11-15] MEDS: NADOLOL 40 MG TABLET (FP) PO SCH (10:03)
--- NOTE | 2018-11-15 12:12 | PN ---
Progress Note (short form) - Note Progress Note: Nurse told me Ms. Corral had diarrhea tofday and that she was given Lactulose. I do not see lactulose ordered, however. Stool for C. diff., O&P, culture if diarrhea persists, hold on lactulose and other recommendations per consultation. Problem List - Problems (1) Abdominal pain Code(s): R10.9 - UNSPECIFIED ABDOMINAL PAIN Qualifiers: Abdominal location: right upper quadrant Qualified Code(s): R10.11 - Right upper quadrant pain
[2018-11-15] MEDS ORDERED: traMADol HCL 50 MG TABLET PO ONE (13:12)
[2018-11-15] MEDS ORDERED: INSULIN (LEVEMIR) 100 UNITS/ML UNITS SQ ONE (13:44)
[2018-11-15 13:53] LABS: ANION GAP 10 MMOL/L (8-16); BLOOD UREA NITROGEN 12 mg/dL (7-18); CHLORIDE 104 mmol/L (98-107); CO2 19 mmol/L (21-32); CREATININE 0.7 mg/dL (0.55-1.3); POTASSIUM 3.9 mmol/L (3.5-5.1); SODIUM 132 mmol/L (136-145)
[2018-11-15 13:58] LABS: CALCIUM 6.9 mg/dL (8.5-10.1); GLUCOSE,RANDOM 420 mg/dL (74-106)
--- NOTE | 2018-11-15 15:57 | PN ---
Teaching Attending Note Name of Resident: Jose Guadalupe Bar ATTENDING PHYSICIAN STATEMENT I saw and evaluated the patient. I reviewed and discussed the case with the resident. I agree with the resident's findings and plan as documented. SUBJECTIVE: Still complains of RUQ dicomfort. No nausea/vomiting. 1 episode of diarrhea today - incontinent on bed. No melena/hematochezia. No fever/chills. OBJECTIVE: Afebrile, Hemodynamically stable. Last Vital Signs Temp Pulse Resp BP Pulse Ox 99.6 F 93 H 18 105/61 98 11/15/18 14:30 11/15/18 14:10 11/15/18 14:10 11/15/18 14:10 11/15/18 12:00 Neuro -AAO x 3. No asterixis. Tone/Power normal all 4 extremities. HEENT - atraumatic, Normocephalic. No pharyngeal erythema/exudate. Heart - S1, S2, RRR Lungs - good air entry Abdomen - soft. Mild generalized tenderness. bowel Sounds normal. Extremities - no calf tenderness. Chronic venous stasis skin changes. mild edema. Laboratory Results - last 24 hr 11/14/18 11/14/18 11/14/18 16:14 18:25 23:01 WBC RBC Hgb Hct MCV MCH MCHC RDW Plt Count MPV Absolute Neuts (auto) Neutrophils % Lymphocytes % Monocytes % Eosinophils % Basophils % Nucleated RBC % Sodium Potassium Chloride Carbon Dioxide Anion Gap BUN Creatinine Creat Clearance w eGFR POC Glucometer 313 336 345 Random Glucose Calcium Magnesium Total Bilirubin AST ALT Alkaline Phosphatase Total Protein Albumin 11/15/18 11/15/18 11/15/18 05:39 06:00 06:00 WBC 3.3 L RBC 4.02 Hgb 10.4 L Hct 32.9 MCV 81.7 MCH 25.9 MCHC 31.6 L RDW 17.4 H Plt Count 182 MPV 8.2 Absolute Neuts (auto) 2.2 Neutrophils % 65.6 D Lymphocytes % 21.6 D Monocytes % 12.8 H Eosinophils % 0.0 Basophils % 0.0 Nucleated RBC % 0 Sodium 133 L Potassium 4.2 Chloride 104 Carbon Dioxide 19 L Anion Gap 9 BUN 11 Creatinine 0.7 Creat Clearance w eGFR > 60 POC Glucometer 373 Random Glucose 371 H* Calcium 7.1 L Magnesium 1.5 L Total Bilirubin 0.3 AST 45 H ALT 46 Alkaline Phosphatase 148 H Total Protein 5.7 L Albumin 1.7 L 11/15/18 11/15/18 12:50 15:27 WBC RBC Hgb Hct MCV MCH MCHC RDW Plt Count MPV Absolute Neuts (auto) Neutrophils % Lymphocytes % Monocytes % Eosinophils % Basophils % Nucleated RBC % Sodium 132 L Potassium 3.9 Chloride 104 Carbon Dioxide 19 L Anion Gap 10 BUN 12 Creatinine 0.7 Creat Clearance w eGFR > 60 POC Glucometer 358 Random Glucose 420 H* Calcium 6.9 L* Magnesium Total Bilirubin AST ALT Alkaline Phosphatase Total Protein Albumin Current Medications Generic Name Dose Route Start Last Admin Trade Name Freq PRN Reason Stop Dose Admin Folic Acid 1 mg 11/13/18 19:45 11/15/18 10:02 Folic Acid - PO 1 mg DAILY SIRIA Administration Heparin Sodium (Porcine) 5,000 unit 11/13/18 21:01 11/15/18 14:11 Heparin - SQ Not Given TID SIRIA Sodium Chloride 1,000 mls @ 125 mls/hr 11/13/18 21:00 11/14/18 22:00 1/2 Normal Saline IV Not Given ASDIR SIRIA Insulin Aspart 1 vial 11/15/18 08:08 11/15/18 12:54 Novolog Vial Sliding Scale - SQ 12 units ACHS SRIIA Administration Protocol Insulin Detemir 20 units 11/15/18 22:00 Levemir Vial SQ BID@0700,2200 [facility] Lisinopril 10 mg 11/14/18 16:30 11/15/18 10:03 Prinivil PO 10 mg DAILY SIRIA Administration Multivitamins/Minerals/Vitamin C 1 tab 11/13/18 19:45 11/15/18 10:02 Tab-A-Vit - PO 1 tab DAILY SIRIA Administration Nadolol 40 mg 11/14/18 16:30 11/15/18 10:03 Corgard - PO 40 mg DAILY SIRIA Administration Pregabalin 150 mg 11/14/18 16:30 11/15/18 10:02 Lyrica - PO 150 mg DAILY SIRIA Administration Ranitidine HCl 150 mg 11/14/18 22:00 11/15/18 10:02 Zantac - PO 150 mg BID SIRIA Administration Thiamine HCl 100 mg 11/13/18 19:45 11/15/18 10:02 Vitamin B1 - PO 100 mg DAILY SIRIA Administration Trazodone HCl 150 mg 11/14/18 22:00 11/14/18 22:00 Desyrel - PO 150 mg HS SIRIA Administration ASSESSMENT AND PLAN: 48 year old female with DM 2, HTN, GERD, Depression, Polysubstance Abuse, including cocaine and alcohol, history of alcohol withdrawal, History of cirrhosis and Hepatic Encephalopathy, CAD s/p NSTEMI, presented to ED after signing out from [facility] AMA. She recently underwent detox at [facility]. Her complaints include generalized myalgia, abdominal discomfort, nausea, watery stool. She denies hematochezia, melena, or vomiting. No fever/chills. 1. Non-specific abdominal discomfort with loose stool - ongoing - not likely secondary to Colitis as per GI Associated nausea - no vomiting. No hematemesis, hematochezia, melena. Hx of Cirrhosis s/p TIPS CT A/P - small amt ascites with sigmoid colitis. Currently afebrile without leukocytosis. Continue gentle IV hydration and monitor. Antibiotics held for now. Gastroenterology consulted and recommends abdominal US and MRI. Stool for culture and Cdiff if any further diarrhea (sample not sent due to patient incontinent on bed). Lactulose/Rifaximin held for now given loose stool. Diet regressed to clear liquids by GI pending further investigations. 2. Hyperglycemia - persistent (on background DM 2) Novolog sliding scale in addition to Glargine to be given in split doses - 20 units in AM and 20 units in PM 3. HTN - continue Lisinopril and Nadolol 4. History of Cirrhosis with portal hypertension s/p TIPS Continue Nadolol. No clinical evidence of ascites or decompensation/fluid overload currently. Small amt of free fluid on CT A/P. Does not appear to be infected - no fever/ chills/leukocytosis. 5. GERD - continue Nexium 6. History of Polysubstance abuse including Alcohol and cocaine. Utox pos only for benzodiazepines. No evidence clinically of ongoing alcohol withdrawal. Recently underwent detox at [facility]. Will monitor for alcohol withdrawal. Give Thiamine, Folate, MVI 7. Hypomagnesemia - recurrent - repleted - will monitor. 8. PTSD/Depression - normally on Trazodone. 9. Hypocalcemia ?due to low Albumin. Will send ionized calcium level. 10. Hypoalbuminemia - secondary to Cirrhosis and poor hepatic synthetic function. Will monitor. 11. Thickened Bladder wall on CT imaging and positive Urine Cx for Strep. Will consult urology for evaluation. Afebrile/Hemodynamically stable. Less than 50, 000 CFU in Urine Cx. Will hold Abx for now. DVT Px - Heparin SQ GI Px - Famotidine
--- NOTE | 2018-11-15 16:38 | PN ---
Physical Exam: SUBJECTIVE: Patient seen and examined at bedside. Complaining of RUQ pain. One episode of watery bowel movement per patient and RN. OBJECTIVE: Vital Signs Period Temp Pulse Resp BP Sys/Resendez Pulse Ox Last 24 Hr 98.0 F-101.0 F 86-101 17-20 105-139/61-80 98-98 GENERAL: AAOx3, NAD HEAD: Atraumatic, Normocephalic EYES: EOMI Conjunctiva clear ENT: MMM NECK: TSupple LUNGS: CTA B/L HEART: RRR, Murmur? ABDOMEN: RUQ tednerness to deep palpation, soft Nondistended, no caput medusa EXTREMITIES: Venous stasis b/l feet, onychomycosis b/l feet, calus plantar aspect Right foot NEUROLOGICAL: No neuro def appreciated PSYCH: Normal mood, normal affect. SKIN: No rashes or lesions appreciated Laboratory Results - last 24 hr 11/14/18 11/14/18 11/14/18 16:14 18:25 23:01 WBC RBC Hgb Hct MCV MCH MCHC RDW Plt Count MPV Absolute Neuts (auto) Neutrophils % Lymphocytes % Monocytes % Eosinophils % Basophils % Nucleated RBC % Sodium Potassium Chloride Carbon Dioxide Anion Gap BUN Creatinine Creat Clearance w eGFR POC Glucometer 313 336 345 Random Glucose Calcium Magnesium Total Bilirubin AST ALT Alkaline Phosphatase Total Protein Albumin 11/15/18 11/15/18 11/15/18 05:39 06:00 06:00 WBC 3.3 L RBC 4.02 Hgb 10.4 L Hct 32.9 MCV 81.7 MCH 25.9 MCHC 31.6 L RDW 17.4 H Plt Count 182 MPV 8.2 Absolute Neuts (auto) 2.2 Neutrophils % 65.6 D Lymphocytes % 21.6 D Monocytes % 12.8 H Eosinophils % 0.0 Basophils % 0.0 Nucleated RBC % 0 Sodium 133 L Potassium 4.2 Chloride 104 Carbon Dioxide 19 L Anion Gap 9 BUN 11 Creatinine 0.7 Creat Clearance w eGFR > 60 POC Glucometer 373 Random Glucose 371 H* Calcium 7.1 L Magnesium 1.5 L Total Bilirubin 0.3 AST 45 H ALT 46 Alkaline Phosphatase 148 H Total Protein 5.7 L Albumin 1.7 L 11/15/18 11/15/18 12:50 15:27 WBC RBC Hgb Hct MCV MCH MCHC RDW Plt Count MPV Absolute Neuts (auto) Neutrophils % Lymphocytes % Monocytes % Eosinophils % Basophils % Nucleated RBC % Sodium 132 L Potassium 3.9 Chloride 104 Carbon Dioxide 19 L Anion Gap 10 BUN 12 Creatinine 0.7 Creat Clearance w eGFR > 60 POC Glucometer 358 Random Glucose 420 H* Calcium 6.9 L* Magnesium Total Bilirubin AST ALT Alkaline Phosphatase Total Protein Albumin Active Medications Generic Name Dose Route Start Last Admin Trade Name Freq PRN Reason Stop Dose Admin Folic Acid 1 mg 11/13/18 19:45 11/15/18 10:02 Folic Acid - PO 1 mg DAILY SIRAI Administration Heparin Sodium (Porcine) 5,000 unit 11/13/18 21:01 11/15/18 14:11 Heparin - SQ Not Given TID SIRIA Sodium Chloride 1,000 mls @ 125 mls/hr 11/13/18 21:00 11/14/18 22:00 1/2 Normal Saline IV Not Given ASDIR SIRIA Insulin Aspart 1 vial 11/15/18 08:08 11/15/18 12:54 Novolog Vial Sliding Scale - SQ 12 units ACHS SIRIA Administration Protocol Insulin Detemir 20 units 11/15/18 22:00 Levemir Vial SQ BID@0700,2200 SIRIA Lisinopril 10 mg 11/14/18 16:30 11/15/18 10:03 Prinivil PO 10 mg DAILY SIRIA Administration Multivitamins/Minerals/Vitamin C 1 tab 11/13/18 19:45 11/15/18 10:02 Tab-A-Vit - PO 1 tab DAILY SIRIA Administration Nadolol 40 mg 11/14/18 16:30 11/15/18 10:03 Corgard - PO 40 mg DAILY SIRIA Administration Pregabalin 150 mg 11/14/18 16:30 11/15/18 10:02 Lyrica - PO 150 mg DAILY SIRIA Administration Ranitidine HCl 150 mg 11/14/18 22:00 11/15/18 10:02 Zantac - PO 150 mg BID SIRIA Administration Thiamine HCl 100 mg 11/13/18 19:45 11/15/18 10:02 Vitamin B1 - PO 100 mg DAILY SIRIA Administration Trazodone HCl 150 mg 11/14/18 22:00 11/14/18 22:00 Desyrel - PO 150 mg HS SIRIA Administration ASSESSMENT/PLAN: Pt is a 48 y/o F with PMH polysubstance abuse (EtOH, cocaine), cirrhosis, GERD, Depression, NSTEMI (2018), and HTN who presented to ED from [facility] with a complaint of abdominal pain. #Abdominal discomfort not likely 2/2 colitis per G.I - CT A/P - small amount ascites with sigmoid colitis. -Abd U/S pending -GI--> Recommends Triple phase MRI -Stool for culture and Cdiff--> toxin and antigen. -Lactulose/Rifaximin deferred at this juncture given loose stool. -Afebrile without leukocytosis. Will defer ABx treatment at this time #Hyperglycemia -BGM> 500 earlier today per RN. Insulin 12 U given per sliding scale. Additionally 20 U Glargine given -Will switch 40 HS Long acting insulin to 20 BID #Polysubstance abuse (Alcohol and cocaine). -Utox--> + benzodiazepines. -No evidence clinically of ongoing alcohol withdrawal. -Recently underwent detox at [facility]. -Monitor for alcohol withdrawal. -Thiamine, Folate, MVI #HTN -Lisinopril 10 mg po daily -Nadolol 40 MG PO Daily # Thickened Bladder wall on CT imaging - Urology Consult - + Urine Culture -Afebrile/Hemodynamically stable. -Less than 50,000 CFU in Urine Cx. Hold Abx for now. #Hypomagnesemia -MgSo4 given earlier today. Continue to follow -BMP in am #FEN: 1/2 NS@125cc/hr Monitor electrolytes Clear Diabetic Diet #DVT ppx -Hep SubQ Dispo -Meds Visit type - Emergency Visit Emergency Visit: Yes ED Registration Date: 11/13/18 Care time: The patient presented to the Emergency Department on the above date and was hospitalized for further evaluation of their emergent condition. - New Patient This patient is new to me today: Yes Date on this admission: 11/15/18 - Critical Care Critical Care patient: No - Discharge Referral Referred to [facility] Med P.C.: No
[2018-11-15] MEDS: SODIUM CHLORIDE 0.45% 1,000 ML IV SCH ×2 (18:28→21:20)
[2018-11-15] MEDS: INSULIN (LEVEMIR) 100 UNITS/ML UNITS SQ SCH (21:58)
[2018-11-15] MEDS: traZODone HCL 50 MG TABLET (FP) PO SCH (21:59)
[2018-11-15] MEDS ORDERED: INSULIN (LEVEMIR) 100 UNITS/ML UNITS SQ SCH ×2 (22:00)
[2018-11-15] MEDS ORDERED: ACETAMINOPHEN 325 MG TABLET (FP) PO PRN (22:27)
[2018-11-16 06:23] LABS: BASO % 0.1 % (0-2.0); HEMATOCRIT 31.9 % (32.4-45.2); HEMOGLOBIN 10.2 GM/dL (10.7-15.3); LYMPH % 48.5 % (8-40); MCH 25.6 pg (25.7-33.7); MEAN CELL VOLUME 79.9 fl (80-96); MEAN PLT VOLUME 7.7 fl (7.5-11.1); MONO % 21.8 % (3.8-10.2); NEUT % 29.6 % (42.8-82.8); PLATELET COUNT 190 K/MM3 (134-434); RBC 3.99 M/mm3 (3.60-5.2); RDW 17.5 % (11.6-15.6); WHITE BLOOD COUNT 3.7 K/mm3 (4.0-10.0)
[2018-11-16] MEDS: HEPARIN NA (PORCINE) 5,000 UNITS/ML 1ML VIAL SQ SCH ×4 (06:43→23:11)
[2018-11-16] MEDS: INSULIN (LEVEMIR) 100 UNITS/ML UNITS SQ SCH ×2 (06:43→21:46)
[2018-11-16] MEDS: INSULIN SLIDING SCALE (NOVOLOG) 1 VIAL SQ SCH ×4 (06:45→21:46)
[2018-11-16 07:25] LABS: ALBUMIN 1.5 g/dl (3.4-5.0); ALK PHOS 101 U/L (45-117); ANION GAP 6 MMOL/L (8-16); BILIRUBIN,TOTAL 0.2 mg/dL (0.2-1); BLOOD UREA NITROGEN 9 mg/dL (7-18); CHLORIDE 114 mmol/L (98-107); CO2 23 mmol/L (21-32); CREATININE 0.4 mg/dL (0.55-1.3); GLUCOSE,RANDOM 80 mg/dL (74-106); MAGNESIUM 2.1 mg/dL (1.8-2.4); POTASSIUM 3.2 mmol/L (3.5-5.1); SGOT/AST 40 U/L (15-37); SGPT/ALT 41 U/L (13-61); SODIUM 143 mmol/L (136-145); TOT PROT 5.3 g/dl (6.4-8.2)
[2018-11-16 07:39] LABS: CALCIUM 6.9 mg/dL (8.5-10.1)
[2018-11-16] MEDS ORDERED: POTASSIUM CHLORIDE TABS 20 MEQ TABLET.ER (FP) PO ONE ×2 (07:40→08:05)
[2018-11-16] MEDS: PREGABALIN 75 MG CAPSULE PO SCH (10:19)
[2018-11-16] MEDS: RANITIDINE HCL 150 MG TABLET (FP) PO SCH ×2 (10:19→21:47)
[2018-11-16] MEDS: THIAMINE HCL 100 MG TABLET (FP) PO SCH (10:20)
[2018-11-16] MEDS: FOLIC ACID 1 MG TABLET (FP) PO SCH (10:20)
[2018-11-16] MEDS: MULTIVITAMINS (DAILY MVI) TABLET (FP) PO SCH (10:20)
[2018-11-16] MEDS ORDERED: PT OWN MED DRAWER 7, Y5N ONE (10:27)
[2018-11-16] MEDS: LISINOPRIL 10 MG TABLET (FP) PO SCH (10:38)
[2018-11-16] MEDS: NADOLOL 40 MG TABLET (FP) PO SCH (10:38)
[2018-11-16] MEDS: oxyCODONE HCL 5 MG TABLET PO PRN ×2 (10:39→15:25)
[2018-11-16] MEDS: LACTULOSE 20 GM/30 ML UDC (FOR ORAL USE ONLY) PO SCH ×2 (12:52→21:47)
[2018-11-16] MEDS: SODIUM CHLORIDE 0.45% 1,000 ML IV SCH ×2 (14:24→21:53)
[2018-11-16 14:43] LABS: ANISOCYTOSIS 1+; MACROCYTOSIS 1+; OVALOCYTE 1+; PLATELET ESTIMATE NORMAL
--- NOTE | 2018-11-16 17:03 | PN ---
Progress Note (short form) - Note Progress Note: Patient still with abdominal pain on right side No bm until noon today so primary team started lactulose, now had 1 loose bm NAD, abdomen soft but ttp on RUQ/RLQ Labs reviewed. C. diff antigen positive toxin negative Await US for TIPS patency Would send C. diff PCR given equivocal nature of antigen/toxin assay.
--- NOTE | 2018-11-16 17:39 | PN ---
Physical Exam: SUBJECTIVE: Patient seen and examined at bedside. Patient denies any nausea, vomiting, or bowel movements overnight. Endorses RUQ abdominal pain. Tolerating jell-o and clear liquids. Denies fevers, chills, shortness of breath, chest pain , palpitations. OBJECTIVE: Vital Signs Period Temp Pulse Resp BP Sys/Resendez Pulse Ox Last 24 Hr 97.9 F-99.9 F 69-95 18-20 94-111/51-65 98 GENERAL: The patient is awake, alert, and fully oriented, in no acute distress. HEAD: Normal with no signs of trauma. EYES: PERRL, extraocular movements intact, sclera anicteric, conjunctiva clear. ENT: Oropharynx clear without exudates, moist mucous membranes. NECK: Trachea midline, full range of motion, supple without lymphadenopathy LUNGS: Breath sounds equal, clear to auscultation bilaterally, no wheezes, no crackles, no accessory muscle use. HEART: Regular rate and rhythm, S1, S2 without murmur, rub or gallop. ABDOMEN: Soft, mild tenderness to palpation RUQ, nonradiating. Nondistended. Normoactive bowel sounds X4 quadrants. No guarding, no rebound tenderness. No hepatosplenomegaly palpated or percussed. EXTREMITIES: 2+ radial and dorsalis pedis pulses. Warm, well-perfused, no lower extremity edema. NEUROLOGICAL: Cranial nerves II through XII grossly intact. Normal speech. No gross focal deficits. PSYCH: Normal mood, normal affect upon my encounter today. SKIN: Warm, dry, normal turgor. Laboratory Results - last 24 hr 11/13/18 11/14/18 11/14/18 22:39 06:32 08:09 WBC RBC Hgb Hct MCV MCH MCHC RDW Plt Count MPV Absolute Neuts (auto) Neutrophils % Neutrophils % (Manual) Band Neutrophils % Lymphocytes % Lymphocytes % (Manual) Monocytes % Monocytes % (Manual) Eosinophils % Eosinophils % (Manual) Basophils % Basophils % (Manual) Myelocytes % (Man) Promyelocytes % (Man) Blast Cells % (Manual) Nucleated RBC % Metamyelocytes Hypochromia Platelet Estimate Polychromasia Poikilocytosis Anisocytosis Microcytosis Macrocytosis Ovalocytes Sodium Potassium Chloride Carbon Dioxide Anion Gap BUN Creatinine Creat Clearance w eGFR POC Glucometer > 400 > 400 > 400 Random Glucose Calcium Magnesium Total Bilirubin AST ALT Alkaline Phosphatase Total Protein Albumin 11/15/18 11/15/18 11/15/18 12:21 13:50 16:55 WBC RBC Hgb Hct MCV MCH MCHC RDW Plt Count MPV Absolute Neuts (auto) Neutrophils % Neutrophils % (Manual) Band Neutrophils % Lymphocytes % Lymphocytes % (Manual) Monocytes % Monocytes % (Manual) Eosinophils % Eosinophils % (Manual) Basophils % Basophils % (Manual) Myelocytes % (Man) Promyelocytes % (Man) Blast Cells % (Manual) Nucleated RBC % Metamyelocytes Hypochromia Platelet Estimate Polychromasia Poikilocytosis Anisocytosis Microcytosis Macrocytosis Ovalocytes Sodium Potassium Chloride Carbon Dioxide Anion Gap BUN Creatinine Creat Clearance w eGFR POC Glucometer > 400 > 400 336 Random Glucose Calcium Magnesium Total Bilirubin AST ALT Alkaline Phosphatase Total Protein Albumin 11/15/18 11/16/18 11/16/18 21:39 05:58 05:58 WBC 3.7 L RBC 3.99 Hgb 10.2 L Hct 31.9 L MCV 79.9 L MCH 25.6 L MCHC 32.0 RDW 17.5 H Plt Count 190 MPV 7.7 Absolute Neuts (auto) 1.1 L Neutrophils % 29.6 L D Neutrophils % (Manual) 34.3 L Band Neutrophils % 0.0 Lymphocytes % 48.5 H D Lymphocytes % (Manual) 39.4 Monocytes % 21.8 H Monocytes % (Manual) 16 H Eosinophils % 0.0 Eosinophils % (Manual) 0.0 Basophils % 0.1 D Basophils % (Manual) 0.0 Myelocytes % (Man) 0 Promyelocytes % (Man) 0 Blast Cells % (Manual) 0 Nucleated RBC % 0 Metamyelocytes 0 Hypochromia 0 Platelet Estimate Normal Polychromasia 0 Poikilocytosis 0 Anisocytosis 1+ Microcytosis 1+ Macrocytosis 1+ Ovalocytes 1+ Sodium 143 Potassium 3.2 L Chloride 114 H Carbon Dioxide 23 Anion Gap 6 L BUN 9 Creatinine 0.4 L Creat Clearance w eGFR > 60 POC Glucometer 231 Random Glucose 80 Calcium 6.9 L* Magnesium 2.1 Total Bilirubin 0.2 AST 40 H ALT 41 Alkaline Phosphatase 101 Total Protein 5.3 L Albumin 1.5 L 11/16/18 11/16/18 05:59 12:19 WBC RBC Hgb Hct MCV MCH MCHC RDW Plt Count MPV Absolute Neuts (auto) Neutrophils % Neutrophils % (Manual) Band Neutrophils % Lymphocytes % Lymphocytes % (Manual) Monocytes % Monocytes % (Manual) Eosinophils % Eosinophils % (Manual) Basophils % Basophils % (Manual) Myelocytes % (Man) Promyelocytes % (Man) Blast Cells % (Manual) Nucleated RBC % Metamyelocytes Hypochromia Platelet Estimate Polychromasia Poikilocytosis Anisocytosis Microcytosis Macrocytosis Ovalocytes Sodium Potassium Chloride Carbon Dioxide Anion Gap BUN Creatinine Creat Clearance w eGFR POC Glucometer 83 138 Random Glucose Calcium Magnesium Total Bilirubin AST ALT Alkaline Phosphatase Total Protein Albumin Active Medications Generic Name Dose Route Start Last Admin Trade Name Freq PRN Reason Stop Dose Admin Acetaminophen 325 mg 11/15/18 22:27 Tylenol - PO Q4H PRN PAIN LEVEL 6-10 Folic Acid 1 mg 11/13/18 19:45 11/16/18 10:20 Folic Acid - PO 1 mg DAILY SIRIA Administration Heparin Sodium (Porcine) 5,000 unit 11/13/18 21:01 11/16/18 15:25 Heparin - SQ Not Given TID COUNT INCLUDES THE [facility] Sodium Chloride 1,000 mls @ 125 mls/hr 11/13/18 21:00 11/16/18 14:24 1/2 Normal Saline IV 125 mls/hr ASDIR COUNT INCLUDES THE [facility] Administration Insulin Aspart 1 vial 11/15/18 08:08 11/16/18 12:20 Novolog Vial Sliding Scale - SQ Not Given ACHS COUNT INCLUDES THE [facility] Protocol Insulin Detemir 20 units 11/15/18 22:00 11/16/18 06:43 Levemir Vial SQ Not Given BID@0700,2200 COUNT INCLUDES THE [facility] Lactulose 30 gm 11/16/18 12:00 11/16/18 12:52 Cephulac (Oral Use) PO 30 gm BID SIRIA Administration Lisinopril 10 mg 11/14/18 16:30 11/16/18 10:38 Prinivil PO 10 mg DAILY SIRIA Administration Multivitamins/Minerals/Vitamin C 1 tab 11/13/18 19:45 11/16/18 10:20 Tab-A-Vit - PO 1 tab DAILY SIRIA Administration Nadolol 40 mg 11/14/18 16:30 11/16/18 10:38 Corgard - PO 40 mg DAILY SIRIA Administration Oxycodone HCl 5 mg 11/15/18 22:27 11/16/18 15:25 Roxicodone - PO 5 mg Q4H PRN Administration PAIN LEVEL 6-10 Pregabalin 150 mg 11/14/18 16:30 11/16/18 10:19 Lyrica - PO 150 mg DAILY SIRIA Administration Ranitidine HCl 150 mg 11/14/18 22:00 11/16/18 10:19 Zantac - PO 150 mg BID SIRIA Administration Thiamine HCl 100 mg 11/13/18 19:45 11/16/18 10:20 Vitamin B1 - PO 100 mg DAILY SIRIA Administration Trazodone HCl 150 mg 11/14/18 22:00 11/15/18 21:59 Desyrel - PO 150 mg HS SIRIA Administration ASSESSMENT/PLAN: Patient is a 48 year old female with history of polysubstance abuse (alcohol, crack cocaine), cirrhosis, myocardial infraction (2007), hypertension, depression presented after leaving [facility] with complaint of abdominal pain. RUQ abdominal discomfort -CT abdomen/ pelvis shows ascites with sigmoid colitis. Negative for small bowel obstruction. -GI recommendations appreciated. Will follow MRI/ MRCP (triple phase) with and without contrast to evaluate TIPS, abdominal doppler, and abdominal ultrasound. -Lactulose 30mg BID -C.difficile antigen posiitve, however toxin negative. Will f/u PCR. Hyperglycemia -Insulin sliding scale ACHS -Insulin levemir 10mg SQ BID -Fingerstick BGM ACHS Bladder wall thickening -Noted on CT scan. Currently afebrile without leukocytosis, so holding off antibiotics for now. -F/U urology consult (Dr. Kay). Polysubstance abuse -Patient recently was at [facility] for detox -currently no signs of alcohol withdrawal. will monitor closely -Thiamine 100mg PO daily -Folic acid 1mg PO daily -Multivitamins 1 tablet daily Hypertension -Lisinopril 10mg PO daily -Nadolol 40mg PO daily -Monitor vital signs closely FEN -IV 1/2 NS at 125mL/ hour -Follow CMP -Clear liquid diet, diabetic modification Prophylaxis -Heparin 5000u subq TID -Ranitidine 150mg PO BID Disposition -Continue care in medical surgical floor. Visit type - Emergency Visit Emergency Visit: Yes ED Registration Date: 11/16/18 Care time: The patient presented to the Emergency Department on the above date and was hospitalized for further evaluation of their emergent condition. - New Patient This patient is new to me today: Yes Date on this admission: 11/16/18 - Critical Care Critical Care patient: No - Discharge Referral Referred to [facility] Med [facility]C.: No
--- NOTE | 2018-11-16 18:45 | PN ---
Teaching Attending Note Name of Resident: Tereso Escobedo ATTENDING PHYSICIAN STATEMENT I saw and evaluated the patient. I reviewed the resident's note and discussed the case with the resident. I agree with the resident's findings and plan as documented. SUBJECTIVE: Still reports some abdominal discomfort. Toelrating po intake - no nausea/vomiting. No bowel movements until after midday when she was given lactulose. No fever/chills. No melena/hematochezia OBJECTIVE: Afebrile, Hemodynamically Stable. Last Vital Signs Temp Pulse Resp BP Pulse Ox 97.9 F 70 20 105/51 L 98 11/16/18 17:00 11/16/18 17:00 11/16/18 17:00 11/16/18 17:00 11/16/18 04:00 HEENT - Atraumatic, Normocephalic. Heart - S1, S2, RRR Lungs - clear to auscultation. No crackles/wheeze Abdomen - RUQ tenderness on deep palpation. Bowel Sounds normal. Extremities - chronic venous stasis skin changes LEs. Neuro - AAO X 3. Tone/Power normal all 4 extremities. Laboratory Results - last 24 hr 11/13/18 11/14/18 11/14/18 22:39 06:32 08:09 WBC RBC Hgb Hct MCV MCH MCHC RDW Plt Count MPV Absolute Neuts (auto) Neutrophils % Neutrophils % (Manual) Band Neutrophils % Lymphocytes % Lymphocytes % (Manual) Monocytes % Monocytes % (Manual) Eosinophils % Eosinophils % (Manual) Basophils % Basophils % (Manual) Myelocytes % (Man) Promyelocytes % (Man) Blast Cells % (Manual) Nucleated RBC % Metamyelocytes Hypochromia Platelet Estimate Polychromasia Poikilocytosis Anisocytosis Microcytosis Macrocytosis Ovalocytes Sodium Potassium Chloride Carbon Dioxide Anion Gap BUN Creatinine Creat Clearance w eGFR POC Glucometer > 400 > 400 > 400 Random Glucose Calcium Magnesium Total Bilirubin AST ALT Alkaline Phosphatase Total Protein Albumin 11/15/18 11/15/18 11/15/18 12:21 13:50 21:39 WBC RBC Hgb Hct MCV MCH MCHC RDW Plt Count MPV Absolute Neuts (auto) Neutrophils % Neutrophils % (Manual) Band Neutrophils % Lymphocytes % Lymphocytes % (Manual) Monocytes % Monocytes % (Manual) Eosinophils % Eosinophils % (Manual) Basophils % Basophils % (Manual) Myelocytes % (Man) Promyelocytes % (Man) Blast Cells % (Manual) Nucleated RBC % Metamyelocytes Hypochromia Platelet Estimate Polychromasia Poikilocytosis Anisocytosis Microcytosis Macrocytosis Ovalocytes Sodium Potassium Chloride Carbon Dioxide Anion Gap BUN Creatinine Creat Clearance w eGFR POC Glucometer > 400 > 400 231 Random Glucose Calcium Magnesium Total Bilirubin AST ALT Alkaline Phosphatase Total Protein Albumin 18 18 18 05:58 05:58 05:59 WBC 3.7 L RBC 3.99 Hgb 10.2 L Hct 31.9 L MCV 79.9 L MCH 25.6 L MCHC 32.0 RDW 17.5 H Plt Count 190 MPV 7.7 Absolute Neuts (auto) 1.1 L Neutrophils % 29.6 L D Neutrophils % (Manual) 34.3 L Band Neutrophils % 0.0 Lymphocytes % 48.5 H D Lymphocytes % (Manual) 39.4 Monocytes % 21.8 H Monocytes % (Manual) 16 H Eosinophils % 0.0 Eosinophils % (Manual) 0.0 Basophils % 0.1 D Basophils % (Manual) 0.0 Myelocytes % (Man) 0 Promyelocytes % (Man) 0 Blast Cells % (Manual) 0 Nucleated RBC % 0 Metamyelocytes 0 Hypochromia 0 Platelet Estimate Normal Polychromasia 0 Poikilocytosis 0 Anisocytosis 1+ Microcytosis 1+ Macrocytosis 1+ Ovalocytes 1+ Sodium 143 Potassium 3.2 L Chloride 114 H Carbon Dioxide 23 Anion Gap 6 L BUN 9 Creatinine 0.4 L Creat Clearance w eGFR > 60 POC Glucometer 83 Random Glucose 80 Calcium 6.9 L* Magnesium 2.1 Total Bilirubin 0.2 AST 40 H ALT 41 Alkaline Phosphatase 101 Total Protein 5.3 L Albumin 1.5 L 18 18 12:19 17:25 WBC RBC Hgb Hct MCV MCH MCHC RDW Plt Count MPV Absolute Neuts (auto) Neutrophils % Neutrophils % (Manual) Band Neutrophils % Lymphocytes % Lymphocytes % (Manual) Monocytes % Monocytes % (Manual) Eosinophils % Eosinophils % (Manual) Basophils % Basophils % (Manual) Myelocytes % (Man) Promyelocytes % (Man) Blast Cells % (Manual) Nucleated RBC % Metamyelocytes Hypochromia Platelet Estimate Polychromasia Poikilocytosis Anisocytosis Microcytosis Macrocytosis Ovalocytes Sodium Potassium Chloride Carbon Dioxide Anion Gap BUN Creatinine Creat Clearance w eGFR POC Glucometer 138 209 Random Glucose Calcium Magnesium Total Bilirubin AST ALT Alkaline Phosphatase Total Protein Albumin Current Medications Generic Name Dose Route Start Last Admin Trade Name Sagarq PRN Reason Stop Dose Admin Acetaminophen 325 mg 11/15/18 22:27 Tylenol - PO Q4H PRN PAIN LEVEL 6-10 Folic Acid 1 mg 11/13/18 19:45 11/16/18 10:20 Folic Acid - PO 1 mg DAILY SIRIA Administration Heparin Sodium (Porcine) 5,000 unit 11/13/18 21:01 11/16/18 15:25 Heparin - SQ Not Given TID SIRIA Sodium Chloride 1,000 mls @ 125 mls/hr 11/13/18 21:00 11/16/18 14:24 1/2 Normal Saline IV 125 mls/hr ASDIR SIRIA Administration Insulin Aspart 1 vial 11/15/18 08:08 11/16/18 17:25 Novolog Vial Sliding Scale - SQ 4 units ACHS SIRIA Administration Protocol Insulin Detemir 10 units 11/16/18 22:00 Levemir Vial SQ BID@0700,2200 SIRIA Lactulose 30 gm 11/16/18 12:00 11/16/18 12:52 Cephulac (Oral Use) PO 30 gm BID SIRIA Administration Lisinopril 10 mg 11/14/18 16:30 11/16/18 10:38 Prinivil PO 10 mg DAILY SIRIA Administration Multivitamins/Minerals/Vitamin C 1 tab 11/13/18 19:45 11/16/18 10:20 Tab-A-Vit - PO 1 tab DAILY SIRIA Administration Nadolol 40 mg 11/14/18 16:30 11/16/18 10:38 Corgard - PO 40 mg DAILY SIRIA Administration Oxycodone HCl 5 mg 11/15/18 22:27 11/16/18 15:25 Roxicodone - PO 5 mg Q4H PRN Administration PAIN LEVEL 6-10 Pregabalin 150 mg 11/14/18 16:30 11/16/18 10:19 Lyrica - PO 150 mg DAILY SIRIA Administration Ranitidine HCl 150 mg 11/14/18 22:00 11/16/18 10:19 Zantac - PO 150 mg BID SIRIA Administration Thiamine HCl 100 mg 11/13/18 19:45 11/16/18 10:20 Vitamin B1 - PO 100 mg DAILY SIRIA Administration Trazodone HCl 150 mg 11/14/18 22:00 11/15/18 21:59 Desyrel - PO 150 mg HS SIRIA Administration ASSESSMENT AND PLAN: 48 year old female with DM 2, HTN, GERD, Depression, Polysubstance Abuse, including cocaine and alcohol, history of alcohol withdrawal, History of cirrhosis and Hepatic Encephalopathy, CAD s/p NSTEMI, presented to ED after signing out from [facility] AMA. She recently underwent detox at [facility]. Her complaints include generalized myalgia, abdominal discomfort, nausea, watery stool. She denies hematochezia, melena, or vomiting. No fever/chills. 1. Non-specific abdominal discomfort Not likely Colitis as per GI - Abx not given Associated nausea, no vomiting, now resolved. No hematemesis, hematochezia, melena. Hx of Cirrhosis s/p TIPS CT A/P - small amt ascites with sigmoid colitis. Currently afebrile without leukocytosis. Gastroenterology consulted and recommends abdominal US and MRI for TIPS patency - pending. Stool Cdiff Antigen positive - for Cdiff PCR as per GI. Lactulose resumed 11/16. Will add Rifaximin depending on bowel movement patterns. Diet regressed to clear liquids by GI pending further investigations. 2. Hyperglycemia - resolving (on background DM 2) Glargine dose decreased to 10 units bid due to borderline serum glucose measurements. Continue Novolog sliding scale. 3. HTN - continue Lisinopril and Nadolol 4. History of Cirrhosis with portal hypertension s/p TIPS Continue Nadolol. No clinical evidence of ascites or decompensation/fluid overload currently. Small amt of free fluid on CT A/P. Does not appear to be infected - no fever/ chills/leukocytosis. Awaiting MRI/MRCP to assess patency. 5. GERD - continue Nexium 6. History of Polysubstance abuse including Alcohol and cocaine. Utox pos only for benzodiazepines. No evidence clinically of ongoing alcohol withdrawal. Recently underwent detox at [facility]. Will monitor for alcohol withdrawal. Give Thiamine, Folate, MVI Oxycodone prn stopped due to opiate dependence. 7. Hypomagnesemia - resolved s/p repletion. Will monitor. 8. PTSD/Depression - normally on Trazodone. 9. Hypocalcemia ?due to low Albumin. Corrected Calcium wnl. Ionized calcium level pending. 10. Hypoalbuminemia - secondary to Cirrhosis and poor hepatic synthetic function. Will monitor. 11. Thickened Bladder wall on CT imaging and positive Urine Cx for Strep. Will consult urology for evaluation. Afebrile/Hemodynamically stable. Less than 50, 000 CFU in Urine Cx. Will hold Abx for now. 12. Hypokalemia/Hypophosphatemia - repleted. DVT Px - Heparin SQ GI Px - Famotidine
[2018-11-16] MEDS: traZODone HCL 50 MG TABLET (FP) PO SCH (21:47)
[2018-11-17] MEDS: HEPARIN NA (PORCINE) 5,000 UNITS/ML 1ML VIAL SQ SCH ×2 (05:14→14:51)
[2018-11-17] MEDS: SODIUM CHLORIDE 0.45% 1,000 ML IV SCH (05:53)
[2018-11-17] MEDS: INSULIN SLIDING SCALE (NOVOLOG) 1 VIAL SQ SCH ×2 (06:08→12:01)
[2018-11-17] MEDS: INSULIN (LEVEMIR) 100 UNITS/ML UNITS SQ SCH (06:08)
[2018-11-17 06:37] VITALS: TEMP 97.9
--- NOTE | 2018-11-17 07:00 | PN ---
Physical Exam: SUBJECTIVE: Patient seen and examined at bedside this morning. Patient endorses one formed bowel movement over night. Denies diarrhea, hematochezia, melena. Tolerating clear liquids without abdominal pain, nausea, vomiting, and asking to advance her diet. Denies fevers, chills, shortness of breath, chest pain, palpitations. OBJECTIVE: Vital Signs Period Temp Pulse Resp BP Sys/Resendez Pulse Ox Last 24 Hr 91 F-98 F 70-75 20-20 72-111/46-67 98-100 GENERAL: The patient is awake, alert, and fully oriented, in no acute distress. HEAD: Normal with no signs of trauma. EYES: PERRL, extraocular movements intact, sclera anicteric, conjunctiva clear. ENT: Oropharynx clear without exudates, moist mucous membranes. NECK: Trachea midline, full range of motion, supple without lymphadenopathy LUNGS: Breath sounds equal, clear to auscultation bilaterally, no wheezes, no crackles, no accessory muscle use. HEART: Regular rate and rhythm, S1, S2 without murmur, rub or gallop. ABDOMEN: Soft, mild tenderness to palpation RUQ, nonradiating. Nondistended. Normoactive bowel sounds X4 quadrants. No guarding, no rebound tenderness. No hepatosplenomegaly palpated or percussed. EXTREMITIES: 2+ radial and dorsalis pedis pulses. Warm, well-perfused, no lower extremity edema. NEUROLOGICAL: Cranial nerves II through XII grossly intact. Normal speech. No gross focal deficits. PSYCH: Normal mood, normal affect upon my encounter today. SKIN: Warm, dry, normal turgor. Laboratory Results - last 24 hr 11/13/18 11/14/18 11/14/18 22:39 06:32 08:09 Neutrophils % (Manual) Band Neutrophils % Lymphocytes % (Manual) Monocytes % (Manual) Eosinophils % (Manual) Basophils % (Manual) Myelocytes % (Man) Promyelocytes % (Man) Blast Cells % (Manual) Metamyelocytes Hypochromia Platelet Estimate Polychromasia Poikilocytosis Anisocytosis Microcytosis Macrocytosis Ovalocytes Sodium Potassium Chloride Carbon Dioxide Anion Gap BUN Creatinine Creat Clearance w eGFR POC Glucometer > 400 > 400 > 400 Random Glucose Calcium Magnesium Total Bilirubin AST ALT Alkaline Phosphatase Total Protein Albumin 11/15/18 11/15/18 11/16/18 12:21 13:50 05:58 Neutrophils % (Manual) 34.3 L Band Neutrophils % 0.0 Lymphocytes % (Manual) 39.4 Monocytes % (Manual) 16 H Eosinophils % (Manual) 0.0 Basophils % (Manual) 0.0 Myelocytes % (Man) 0 Promyelocytes % (Man) 0 Blast Cells % (Manual) 0 Metamyelocytes 0 Hypochromia 0 Platelet Estimate Normal Polychromasia 0 Poikilocytosis 0 Anisocytosis 1+ Microcytosis 1+ Macrocytosis 1+ Ovalocytes 1+ Sodium Potassium Chloride Carbon Dioxide Anion Gap BUN Creatinine Creat Clearance w eGFR POC Glucometer > 400 > 400 Random Glucose Calcium Magnesium Total Bilirubin AST ALT Alkaline Phosphatase Total Protein Albumin 11/16/18 11/16/18 11/16/18 05:58 12:19 17:25 Neutrophils % (Manual) Band Neutrophils % Lymphocytes % (Manual) Monocytes % (Manual) Eosinophils % (Manual) Basophils % (Manual) Myelocytes % (Man) Promyelocytes % (Man) Blast Cells % (Manual) Metamyelocytes Hypochromia Platelet Estimate Polychromasia Poikilocytosis Anisocytosis Microcytosis Macrocytosis Ovalocytes Sodium 143 Potassium 3.2 L Chloride 114 H Carbon Dioxide 23 Anion Gap 6 L BUN 9 Creatinine 0.4 L Creat Clearance w eGFR > 60 POC Glucometer 138 209 Random Glucose 80 Calcium 6.9 L* Magnesium 2.1 Total Bilirubin 0.2 AST 40 H ALT 41 Alkaline Phosphatase 101 Total Protein 5.3 L Albumin 1.5 L 11/16/18 11/17/18 21:44 05:36 Neutrophils % (Manual) Band Neutrophils % Lymphocytes % (Manual) Monocytes % (Manual) Eosinophils % (Manual) Basophils % (Manual) Myelocytes % (Man) Promyelocytes % (Man) Blast Cells % (Manual) Metamyelocytes Hypochromia Platelet Estimate Polychromasia Poikilocytosis Anisocytosis Microcytosis Macrocytosis Ovalocytes Sodium Potassium Chloride Carbon Dioxide Anion Gap BUN Creatinine Creat Clearance w eGFR POC Glucometer 335 362 Random Glucose Calcium Magnesium Total Bilirubin AST ALT Alkaline Phosphatase Total Protein Albumin Active Medications Generic Name Dose Route Start Last Admin Trade Name Freq PRN Reason Stop Dose Admin Acetaminophen 325 mg 11/15/18 22:27 Tylenol - PO Q4H PRN PAIN LEVEL 6-10 Folic Acid 1 mg 11/13/18 19:45 11/16/18 10:20 Folic Acid - PO 1 mg DAILY SIRIA Administration Heparin Sodium (Porcine) 5,000 unit 11/13/18 21:01 11/17/18 05:14 Heparin - SQ Not Given TID SIRIA Sodium Chloride 1,000 mls @ 125 mls/hr 11/13/18 21:00 11/17/18 05:53 1/2 Normal Saline IV 125 mls/hr ASDIR SIRIA Administration Insulin Aspart 1 vial 11/15/18 08:08 11/17/18 06:08 Novolog Vial Sliding Scale - SQ 10 units ACHS SIRIA Administration Protocol Insulin Detemir 10 units 11/16/18 22:00 11/17/18 06:08 Levemir Vial SQ 10 unit BID@0700,2200 SIRIA Administration Lactulose 30 gm 11/16/18 12:00 11/16/18 21:47 Cephulac (Oral Use) PO 30 gm BID SIRIA Administration Lisinopril 10 mg 11/14/18 16:30 11/16/18 10:38 Prinivil PO 10 mg DAILY SIRIA Administration Multivitamins/Minerals/Vitamin C 1 tab 11/13/18 19:45 11/16/18 10:20 Tab-A-Vit - PO 1 tab DAILY SIRIA Administration Nadolol 40 mg 11/14/18 16:30 11/16/18 10:38 Corgard - PO 40 mg DAILY SIRIA Administration Pregabalin 150 mg 11/14/18 16:30 11/16/18 10:19 Lyrica - PO 150 mg DAILY SIRIA Administration Ranitidine HCl 150 mg 11/14/18 22:00 11/16/18 21:47 Zantac - PO 150 mg BID SIRIA Administration Thiamine HCl 100 mg 11/13/18 19:45 11/16/18 10:20 Vitamin B1 - PO 100 mg DAILY SIRIA Administration Trazodone HCl 150 mg 11/14/18 22:00 11/16/18 21:47 Desyrel - PO 150 mg HS SIRIA Administration ASSESSMENT/PLAN:
[2018-11-17 07:14] LABS: HEMOGLOBIN 10.1 GM/dL (10.7-15.3); MCH 27.3 pg (25.7-33.7); MCHC 33.8 g/dl (32.0-36.0); MEAN CELL VOLUME 80.8 fl (80-96); MEAN PLT VOLUME 8.2 fl (7.5-11.1); PLATELET COUNT 192 K/MM3 (134-434); RBC 3.72 M/mm3 (3.60-5.2); RDW 17.7 % (11.6-15.6); WHITE BLOOD COUNT 3.2 K/mm3 (4.0-10.0)
[2018-11-17 07:48] LABS: ALBUMIN 1.6 g/dl (3.4-5.0); ALK PHOS 110 U/L (45-117); ANION GAP 6 MMOL/L (8-16); BILIRUBIN,TOTAL 0.4 mg/dL (0.2-1); BLOOD UREA NITROGEN 7 mg/dL (7-18); CHLORIDE 112 mmol/L (98-107); CO2 21 mmol/L (21-32); CREATININE 0.6 mg/dL (0.55-1.3); MAGNESIUM 1.7 mg/dL (1.8-2.4); PHOSPHOROUS 2.7 mg/dL (2.5-4.9); POTASSIUM 3.9 mmol/L (3.5-5.1); SGOT/AST 70 U/L (15-37); SGPT/ALT 57 U/L (13-61); SODIUM 140 mmol/L (136-145); TOT PROT 5.3 g/dl (6.4-8.2)
[2018-11-17 07:52] LABS: GLUCOSE,RANDOM 314 mg/dL (74-106)
[2018-11-17] MEDS ORDERED: NADOLOL 20 MG TABLET (FP) ONE (10:19)
[2018-11-17] MEDS: LISINOPRIL 10 MG TABLET (FP) PO SCH (10:53)
[2018-11-17] MEDS: NADOLOL 40 MG TABLET (FP) PO SCH (10:53)
[2018-11-17] MEDS: RANITIDINE HCL 150 MG TABLET (FP) PO SCH (10:53)
[2018-11-17] MEDS: THIAMINE HCL 100 MG TABLET (FP) PO SCH (10:54)
[2018-11-17] MEDS: MULTIVITAMINS (DAILY MVI) TABLET (FP) PO SCH (10:54)
[2018-11-17] MEDS: FOLIC ACID 1 MG TABLET (FP) PO SCH (10:54)
[2018-11-17] MEDS: LACTULOSE 20 GM/30 ML UDC (FOR ORAL USE ONLY) PO SCH (10:54)
[2018-11-17] MEDS: PREGABALIN 75 MG CAPSULE PO SCH (10:54)
[2018-11-17 11:25] VITALS: BP 105/56; PULSE 73
[2018-11-17] MEDS ORDERED: INSULIN (NOVOLOG) ASPART 100 UNITS/ML 10ML VIAL ONE (11:53)
--- NOTE | 2018-11-17 12:17 | PN ---
Teaching Attending Note Name of Resident: Tereso Escobedo ATTENDING PHYSICIAN STATEMENT I saw and evaluated the patient. I reviewed the resident's note and discussed the case with the resident. I agree with the resident's findings and plan as documented with exceptions below. SUBJECTIVE: Patient seen and examined. Wants solid food, denies pain or new concerns. NO nausea, vomiting or diarrhea noted. OBJECTIVE: Vital Signs Period Temp Pulse Resp BP Sys/Resendez Pulse Ox Last 24 Hr 91 F-98 F 70-75 18-20 72-111/46-67 100 Intake & Output 11/14/18 11/15/18 11/16/18 11/17/18 23:59 23:59 23:59 23:59 Intake Total 2570 1940 1100 1880 Balance 2570 1940 1100 1880 General: lying in bed in no acute distress. AAOX3 Chest: CTAB, no rales or wheezing Abdomen;soft hepatomegaly, mild tenderness along hepatic margin, neg barrientos's sign, NT otherwise, no voluntary or involuntary guarding or rigidity, positive bowel sounds Extremities: no edema, no asterexis Home Medications Medication Instructions Recorded Insulin Glargine,Hum.rec.anlog 40 units SQ HS 10/20/17 [Lantus Solostar PEN -] Trazodone HCl 150 mg PO HS 06/23/18 Esomeprazole Magnesium [Nexium 40 mg PO DAILY 11/09/18 24Hr] Insulin (Novolog) [Novolog] 0 units SQ AC 11/09/18 Insulin Sliding Scale [Novolog 1 vial SQ ACHS #1 units 11/13/18 Vial Sliding Scale -] Lisinopril [Prinivil] 10 mg PO DAILY #30 tablet 11/13/18 Nadolol [Corgard -] 40 mg PO DAILY #30 tablet 11/13/18 Pregabalin [Lyrica] 150 mg PO DAILY #30 capsule MDD 1 11/13/18 Active Medications Acetaminophen (Tylenol -) 325 mg PO Q4H PRN PRN Reason: PAIN LEVEL 6-10 Folic Acid (Folic Acid -) 1 mg PO DAILY [facility] Last Admin: 11/17/18 10:54 Dose: 1 mg Heparin Sodium (Porcine) (Heparin -) 5,000 unit SQ TID [facility] Last Admin: 11/17/18 05:14 Dose: Not Given Sodium Chloride (1/2 Normal Saline) 1,000 mls @ 125 mls/hr IV ASDIR [facility] Last Admin: 11/17/18 05:53 Dose: 125 mls/hr Insulin Aspart (Novolog Vial Sliding Scale -) 1 vial SQ ACHS [facility]; Protocol Last Admin: 11/17/18 12:01 Dose: 8 units Insulin Detemir (Levemir Vial) 10 units SQ BID@0700,2200 [facility] Last Admin: 11/17/18 06:08 Dose: 10 unit Lactulose (Cephulac (Oral Use)) 30 gm PO BID [facility] Last Admin: 11/17/18 10:54 Dose: 30 gm Lisinopril (Prinivil) 10 mg PO DAILY [facility] Last Admin: 11/17/18 10:53 Dose: 10 mg Multivitamins/Minerals/Vitamin C (Tab-A-Vit -) 1 tab PO DAILY [facility] Last Admin: 11/17/18 10:54 Dose: 1 tab Nadolol (Corgard -) 40 mg PO DAILY [facility] Last Admin: 11/17/18 10:53 Dose: 40 mg Pregabalin (Lyrica -) 150 mg PO DAILY [facility] Last Admin: 11/17/18 10:54 Dose: 150 mg Ranitidine HCl (Zantac -) 150 mg PO BID [facility] Last Admin: 11/17/18 10:53 Dose: 150 mg Thiamine HCl (Vitamin B1 -) 100 mg PO DAILY [facility] Last Admin: 11/17/18 10:54 Dose: 100 mg Trazodone HCl (Desyrel -) 150 mg PO HS [facility] Last Admin: 11/16/18 21:47 Dose: 150 mg Laboratory Results - last 24 hr 11/16/18 11/16/18 11/16/18 05:58 12:19 17:25 WBC RBC Hgb Hct MCV MCH MCHC RDW Plt Count MPV Neutrophils % (Manual) 34.3 L Band Neutrophils % 0.0 Lymphocytes % (Manual) 39.4 Monocytes % (Manual) 16 H Eosinophils % (Manual) 0.0 Basophils % (Manual) 0.0 Myelocytes % (Man) 0 Promyelocytes % (Man) 0 Blast Cells % (Manual) 0 Metamyelocytes 0 Hypochromia 0 Platelet Estimate Normal Polychromasia 0 Poikilocytosis 0 Anisocytosis 1+ Microcytosis 1+ Macrocytosis 1+ Ovalocytes 1+ Sodium Potassium Chloride Carbon Dioxide Anion Gap BUN Creatinine Creat Clearance w eGFR POC Glucometer 138 209 Random Glucose Calcium Phosphorus Magnesium Total Bilirubin AST ALT Alkaline Phosphatase Total Protein Albumin 11/16/18 11/17/18 11/17/18 21:44 05:36 06:15 WBC 3.2 L RBC 3.72 Hgb 10.1 L Hct 30.0 L MCV 80.8 MCH 27.3 MCHC 33.8 RDW 17.7 H Plt Count 192 MPV 8.2 Neutrophils % (Manual) Band Neutrophils % Lymphocytes % (Manual) Monocytes % (Manual) Eosinophils % (Manual) Basophils % (Manual) Myelocytes % (Man) Promyelocytes % (Man) Blast Cells % (Manual) Metamyelocytes Hypochromia Platelet Estimate Polychromasia Poikilocytosis Anisocytosis Microcytosis Macrocytosis Ovalocytes Sodium Potassium Chloride Carbon Dioxide Anion Gap BUN Creatinine Creat Clearance w eGFR POC Glucometer 335 362 Random Glucose Calcium Phosphorus Magnesium Total Bilirubin AST ALT Alkaline Phosphatase Total Protein Albumin 11/17/18 11/17/18 06:15 12:01 WBC RBC Hgb Hct MCV MCH MCHC RDW Plt Count MPV Neutrophils % (Manual) Band Neutrophils % Lymphocytes % (Manual) Monocytes % (Manual) Eosinophils % (Manual) Basophils % (Manual) Myelocytes % (Man) Promyelocytes % (Man) Blast Cells % (Manual) Metamyelocytes Hypochromia Platelet Estimate Polychromasia Poikilocytosis Anisocytosis Microcytosis Macrocytosis Ovalocytes Sodium 140 Potassium 3.9 Chloride 112 H Carbon Dioxide 21 Anion Gap 6 L BUN 7 Creatinine 0.6 Creat Clearance w eGFR > 60 POC Glucometer 329 Random Glucose 314 H* Calcium 7.0 L Phosphorus 2.7 Magnesium 1.7 L Total Bilirubin 0.4 AST 70 H ALT 57 Alkaline Phosphatase 110 Total Protein 5.3 L Albumin 1.6 L Microbiology 11/15/18 12:05 Stool Clostridium difficile Antigen (ASHLEY) - Final 11/15/18 12:05 Stool Clostridium difficile Toxin Assay - Final 11/13/18 16:28 Urine - Urine Clean Catch Urine Culture - Final Strep Agalactiae Group B ABdominal US/duplex results noted MRI abdomen prelim results reviewed ASSESSMENT AND PLAN: 48 year old female with DM 2, HTN, GERD, Depression, Polysubstance Abuse, including cocaine and alcohol, history of alcohol withdrawal, History of cirrhosis and Hepatic Encephalopathy, s/p TIPS in 2009 for refractory ascitis, CAD s/p NSTEMI, presented to ED after signing out from [facility] for generalized myalgia, abdominal discomfort, nausea, watery stool. -Abdominal pain, nausea, vomiting, reported diarrhea -IDDM -Cirrhosis with portal hypertension s/p TIPS -h/o hepatic encephalopathy -GERD -Polysubstance abuse with alcohol/cocaine -Hypomagnesemia -Hypocalcemia/Hypokalemia/hypophosphatemia -Asymptomatic bacteruria (strep) vs cystitis -PTSD/Depression Plan: MRI prelim/Abdominal US/Duplex non concerning. advance diet. 3 formed stools, no concerns for diarrhea. No evidence of fever/leucocytosis or concerns on CT GI input noted. Needs outpatient follow up and compliance with meds. 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 Non compliance with medications. has been on novolog flex pen, resume on d/c at 20 units. Diabetic education. Glucometer/strips prescription to be provided Patient counseled on close blood glucose monitoring and offered follow up at medical clinic. Declines the same and wants to establish care in [facility]. Continue nadolol/lisinopril. ETOH/drug cessation counseling. no concerns for acute withdrawal. Nexium. Replete Mg. Urology input noted. Amoxicillin for 3 days. Declined coags blood draw today. D/c home today if tolerating diet and no concerns. Ambulating inhouse well. PT eval per patient request. Plan discussed with patient in detail, all questions answered.
--- NOTE | 2018-11-17 12:22 | PN ---
Progress Note (short form) - Note Progress Note: patient admitted with abdominal pain. CT with incidental finding of bladder wall thickening consistent with cystitis Urine culture is positive IMP- UTI with cystitis on CT treat with antibiotics no other intervention at this time
[2018-11-17] MEDS ORDERED: MAGNESIUM OXIDE 400 MG TABLET (FP) PO ONE (12:35)
[2018-11-17] MEDS ORDERED: AMOXICILLIN 500 MG CAPSULE (FP) PO SCH (14:00)
--- NOTE | 2018-11-17 14:08 | PN ---
Progress Note (short form) - Note Progress Note: patient with C. Diff antigen +. If still having diarrhea should be placed on PO Vanco 125mg PO q 6hrs Problem List - Problems (1) Abdominal pain Code(s): R10.9 - UNSPECIFIED ABDOMINAL PAIN Qualifiers: Abdominal location: right upper quadrant Qualified Code(s): R10.11 - Right upper quadrant pain
--- NOTE | 2018-11-17 14:42 | DS ---
Physical Exam: SUBJECTIVE: Patient seen and examined at bedside this morning. Patient endorses three formed bowel movement over night. Denies diarrhea, hematochezia, melena. Tolerating clear liquids without abdominal pain, nausea, vomiting, and asking to advance her diet. Denies fevers, chills, shortness of breath, chest pain, palpitations. OBJECTIVE: Vital Signs Period Temp Pulse Resp BP Sys/Resendez Pulse Ox Last 24 Hr 91 F-98 F 70-75 18-20 72-107/46-67 100 PHYSICAL EXAM GENERAL: The patient is awake, alert, and fully oriented, in no acute distress. HEAD: Normal with no signs of trauma. EYES: PERRL, extraocular movements intact, sclera anicteric, conjunctiva clear. ENT: Oropharynx clear without exudates, moist mucous membranes. NECK: Trachea midline, full range of motion, supple without lymphadenopathy LUNGS: Breath sounds equal, clear to auscultation bilaterally, no wheezes, no crackles, no accessory muscle use. HEART: Regular rate and rhythm, S1, S2 without murmur, rub or gallop. ABDOMEN: Soft, mild tenderness to palpation RUQ, nonradiating. Nondistended. Normoactive bowel sounds X4 quadrants. No guarding, no rebound tenderness. No hepatosplenomegaly palpated or percussed. EXTREMITIES: 2+ radial and dorsalis pedis pulses. Warm, well-perfused, no lower extremity edema. NEUROLOGICAL: Cranial nerves II through XII grossly intact. Normal speech. No gross focal deficits. PSYCH: Normal mood, normal affect upon my encounter today. SKIN: Warm, dry, normal turgor. LABS Laboratory Results - last 24 hr 11/16/18 11/16/18 11/16/18 05:58 17:25 21:44 WBC RBC Hgb Hct MCV MCH MCHC RDW Plt Count MPV Neutrophils % (Manual) 34.3 L Band Neutrophils % 0.0 Lymphocytes % (Manual) 39.4 Monocytes % (Manual) 16 H Eosinophils % (Manual) 0.0 Basophils % (Manual) 0.0 Myelocytes % (Man) 0 Promyelocytes % (Man) 0 Blast Cells % (Manual) 0 Metamyelocytes 0 Hypochromia 0 Platelet Estimate Normal Polychromasia 0 Poikilocytosis 0 Anisocytosis 1+ Microcytosis 1+ Macrocytosis 1+ Ovalocytes 1+ Sodium Potassium Chloride Carbon Dioxide Anion Gap BUN Creatinine Creat Clearance w eGFR POC Glucometer 209 335 Random Glucose Hemoglobin A1c % Calcium Phosphorus Magnesium Total Bilirubin AST ALT Alkaline Phosphatase Total Protein Albumin 11/17/18 11/17/18 11/17/18 05:36 06:15 06:15 WBC 3.2 L RBC 3.72 Hgb 10.1 L Hct 30.0 L MCV 80.8 MCH 27.3 MCHC 33.8 RDW 17.7 H Plt Count 192 MPV 8.2 Neutrophils % (Manual) Band Neutrophils % Lymphocytes % (Manual) Monocytes % (Manual) Eosinophils % (Manual) Basophils % (Manual) Myelocytes % (Man) Promyelocytes % (Man) Blast Cells % (Manual) Metamyelocytes Hypochromia Platelet Estimate Polychromasia Poikilocytosis Anisocytosis Microcytosis Macrocytosis Ovalocytes Sodium 140 Potassium 3.9 Chloride 112 H Carbon Dioxide 21 Anion Gap 6 L BUN 7 Creatinine 0.6 Creat Clearance w eGFR > 60 POC Glucometer 362 Random Glucose 314 H* Hemoglobin A1c % Calcium 7.0 L Phosphorus 2.7 Magnesium 1.7 L Total Bilirubin 0.4 AST 70 H ALT 57 Alkaline Phosphatase 110 Total Protein 5.3 L Albumin 1.6 L 11/17/18 11/17/18 06:15 12:01 WBC RBC Hgb Hct MCV MCH MCHC RDW Plt Count MPV Neutrophils % (Manual) Band Neutrophils % Lymphocytes % (Manual) Monocytes % (Manual) Eosinophils % (Manual) Basophils % (Manual) Myelocytes % (Man) Promyelocytes % (Man) Blast Cells % (Manual) Metamyelocytes Hypochromia Platelet Estimate Polychromasia Poikilocytosis Anisocytosis Microcytosis Macrocytosis Ovalocytes Sodium Potassium Chloride Carbon Dioxide Anion Gap BUN Creatinine Creat Clearance w eGFR POC Glucometer 329 Random Glucose Hemoglobin A1c % 11.3 H Calcium Phosphorus Magnesium Total Bilirubin AST ALT Alkaline Phosphatase Total Protein Albumin HOSPITAL COURSE: Date of Admission:11/16/18 Date of Discharge: 11/17/18 Patient is a 48 year old female with history of polysubstance abuse (alcohol, crack cocaine), cirrhosis, myocardial infraction (2007), hypertension, depression presented after leaving [facility] with complaint of abdominal pain, nausea, and vomiting. CT abdomen/ pelvis shows mild ascites with sigmoid colitis. Negative for small bowel obstruction. Abdominal MRI/MRCP, US and Doppler showed TIPS shunt patent, patent portal vein, and patent portal veins. Hepatomegaly noted with fatty infiltration. Patient is s/p cholecystectomy. Lactulose was started at 30grams BID. Discussed to titrate such that she has 2- 3 bowel movements daily at discharge. C. difficile stool antigen was positive, however toxin negative. Given patient's history of diarrhea, discharged with Vancomycin 125mg Q6H for 10 days. Incidental bladder wall thickening noted on CT. Evaluated by urology, who recommended antibiotic treatment. Discharged with Amoxicillin 500mg TID for three days. Discharged to continue Lisinopril, Nadolol , and Lyrica. Discussed importance of maintaining glycemic control, and prescribed glucometer, test strips, and lancets. Discharged with Insulin 20 units daily. Patient discharged back to [facility] to complete her drug, and alcohol rehabilitation. Follow up scheduled for primary care physician, and gastroenterology. Minutes to complete discharge: 35 Discharge Summary Reason For Visit: HIGH GLUCOSE LEVEL Current Active Problems Abdominal pain (Acute) Elevated glucose level (Acute) Hyponatremia (Acute) Condition: Stable - Instructions Diet, Activity, Other Instructions: You were admitted for abdominal pain, nausea, and vomiting. You were found to have elevated blood sugar, and treated with insulin. Hospital course Your MRI showed slightly enlarged, and fatty liver, with a functioning TIPS shunt. Your abdominal ultrasound showed appropriate flow through your blood vessels Your stool was positive for bacteria infection C. difficile. You will take antibiotics for 10 days for this infection. Your CT scan showed thickening of your bladder, and you will receive antibiotics as per the urologist Post-discharge instructions and follow up: You are being discharged to [facility] for rehabilitation. Continue taking Lisinopril 10mg daily, Nadolol 40mg daily, Lyrica 150mg daily. You will begin taking Lactulose 30gm orally twice a day. Ensure to titrate so that you have 2-3 bowel movements per day. You will take antibiotic Amoxicillin 500mg every 8 hours for three days. In addition, you will take Vancomycin 125mg every 6 hours for 10 days. You will continue taking Insulin 20units a day. You will check your blood sugars using a fingerstick monitor. The prescriptions have been sent to your pharmacy. Follow up with your primary care physician Dr. Monge. Referrals: Beka Jacob DO [Staff Physician] - 1 Week Domo Monge MD [Staff Physician] - 11/19/18 Disposition: TRANSFER ACUTE CARE/OTHER HOSP - Home Medications Comprehensive Discharge Medication List: Ambulatory Orders Esomeprazole Magnesium [Nexium 24Hr] 40 mg PO DAILY 11/09/18 Lisinopril [Prinivil] 10 mg PO DAILY #30 tablet 11/13/18 Nadolol [Corgard -] 40 mg PO DAILY #30 tablet 11/13/18 Pregabalin [Lyrica] 150 mg PO DAILY #30 capsule MDD 1 11/13/18 Amoxicillin - [Amoxicillin 500mg Capsule -] 500 mg PO Q8H 3 Days #9 capsule Esomeprazole Magnesium [Nexium 24Hr] 40 mg PO DAILY 30 Days #30 tablet. Insulin Glargine,Hum.rec.anlog [Lantus Solostar PEN (NF)] 20 units SQ HS #5 pen 11/17/18 Lactulose (Oral Use) [Cephulac -] 30 gm PO BID 30 Days #60 udc 11/17/18 Lancets 1 each MC ASDIR 30 Days #1 box 11/17/18 Lisinopril [Prinivil] 10 mg PO DAILY 30 Days #30 tablet 11/17/18 Miscellaneous Medical Supply [Glucometer Device] 1 each .ROUTE ASDIR #1 kit Misc[employer] [Glucometer Test Strips #100] 1 each DT ASDIR 30 Days #1 box 11/17/18 Nadolol [Corgard -] 40 mg PO DAILY 30 Days #30 tablet 11/17/18 Pregabalin [Lyrica] 150 mg PO DAILY #45 capsule MDD 150mg 11/17/18 Vancomycin HCl [Vancocin HCl] 125 mg PO Q6H 10 Days #40 capsule 11/17/18 This patient is new to me today: No Emergency Visit: Yes ED Registration Date: 11/16/18 Care time: The patient presented to the Emergency Department on the above date and was hospitalized for further evaluation of their emergent condition. Critical Care patient: No - Discharge Referral [facility]erred to [facility] Med [facility] Yes Physician Referral: Art Jacob DO (GI)
== END 2018-11-17 15:10 | disposition short-term general hospital (02) | DRG 372 ==
LOC: JER 14:25 → JERBED 18:13 → J5S 20:09 → OBSVTOIN 11-16 16:33 → J8W 11-16 16:34
PROVIDERS: ATTEND Hospitalist
DX: A04.72 Enterocolitis due to Clostridium difficile, not specified as recurrent (principal); N39.0 Urinary tract infection, site not specified; R18.8 Other ascites; K76.6 Portal hypertension; E87.1 Hypo-osmolality and hyponatremia; E11.65 Type 2 diabetes mellitus with hyperglycemia; I10 Essential (primary) hypertension; E83.42 Hypomagnesemia; E83.51 Hypocalcemia; E87.6 Hypokalemia; E83.39 Other disorders of phosphorus metabolism; F14.10 Cocaine abuse, uncomplicated; F10.10 Alcohol abuse, uncomplicated; K74.60 Unspecified cirrhosis of liver; K76.0 Fatty (change of) liver, not elsewhere classified; R10.11 Right upper quadrant pain; K21.9 Gastro-esophageal reflux disease without esophagitis; F43.10 Post-traumatic stress disorder, unspecified; F32.9 Major depressive disorder, single episode, unspecified; E88.09 Other disorders of plasma-protein metabolism, not elsewhere classified
CPT/HCPCS: 36415; 74176-TC; 74183-TC; 76700-TC; 80048; 80053; 80307; 81003; 82009; 82330; 82550; 82962; 83036; 83690; 83735; 84100; 84703; 85025; 85027; 87045; 87046; 87086; 87186; 87205; 87324; 87449; 87493; 93005; 93010; 93976; 97116-GP; 97161-GP; 99282-25; G0378; J1644

== ENCOUNTER 2018-11-17 16:24 | Inpatient (IN) | payer OTHER ==
[2018-11-17 17:19] VITALS: BMI 28.4
[2018-11-17] MEDS ORDERED: ACETAMINOPHEN 325 MG TABLET (FP) PO PRN (19:36)
[2018-11-17] MEDS ORDERED: guaiFENesin/D-METHORPHAN HB 10 ML UNIT-DOSE CUPS PO PRN (19:36)
[2018-11-17] MEDS ORDERED: MAGNESIUM HYDROX 2400MG/30ML ORAL SUSPENSION 30 ML CUP PO PRN (19:36)
[2018-11-17] MEDS ORDERED: hydrOXYzine PAMOATE 50 MG CAPSULE (FP) PO PRN (19:36)
[2018-11-17] MEDS ORDERED: MENTHOL/PHENOL 1 EACH UD MM PRN (19:36)
[2018-11-17] MEDS ORDERED: MAGNESIUM CITRATE 300 ML BOTTLE PO PRN (19:36)
[2018-11-17] MEDS ORDERED: P-EPHED 60MG/TRIPROLIDI 2.5MG TABLET PO PRN (19:36)
[2018-11-17] MEDS ORDERED: LOPERAMIDE HCL 2 MG CAPSULE PO PRN (19:36)
[2018-11-17] MEDS ORDERED: IBUPROFEN 400 MG TABLET (FP) PO PRN (19:36)
--- NOTE | 2018-11-17 19:36 | HP ---
RACHEL BLAIR Rehab Assess/Revision - Admission History Admitted to Rehab from: Medical/Surgical - Vital signs Vital Signs: Vital Signs Period Temp Pulse Resp BP Sys/Resendez Pulse Ox Last 24 Hr 97.2 F 83 18 127/83 - Findings Detox History & Physical reviewed: Yes Concur with findings: Yes Inpatient Rehab Admission - Initial Determination Are CD services needed?: Yes Free of communicable disease: Yes Not in need of hospitalization: Yes - Rehab Admission Criteria Previous failed treatment: Yes Comorbidities: Yes Lacks judgement: Yes
[2018-11-17] MEDS ORDERED: AMOXICILLIN 500 MG CAPSULE (FP) PO SCH (20:00)
[2018-11-17] MEDS ORDERED: MELATONIN 5 MG TABLETS PO PRN (22:00)
[2018-11-17] MEDS: LACTULOSE 20 GM/30 ML UDC (FOR ORAL USE ONLY) PO SCH (23:07)
[2018-11-17] MEDS: THIAMINE HCL 100 MG TABLET (FP) PO SCH (23:07)
[2018-11-17] MEDS: VANCOMYCIN 250 MG/5 ML ORAL SOLUTION PO SCH ×2 (23:09→23:12)
[2018-11-17] MEDS: TOLNAFTATE 1% CREAM 15 GM TUBE TP SCH (23:12)
[2018-11-17] MEDS: INSULIN (LEVEMIR) 100 UNITS/ML UNITS SQ SCH (23:13)
[2018-11-18] MEDS ORDERED: PT OWN MED DRAWER 7, Y5N ONE ×3 (00:09→10:27)
[2018-11-18] MEDS ORDERED: TUBERCULIN PPD 5 TU/0.1ML VIAL ID ONE ×2 (00:10→18:14)
[2018-11-18] MEDS: VANCOMYCIN 250 MG/5 ML ORAL SOLUTION PO SCH ×4 (06:42→23:04)
[2018-11-18] MEDS: AMOXICILLIN 500 MG CAPSULE (FP) PO SCH ×3 (06:42→22:15)
[2018-11-18] MEDS: INSULIN (NOVOLOG) ASPART 100 UNITS/ML 10ML VIAL SQ SCH ×3 (06:44→16:48)
[2018-11-18] MEDS ORDERED: INSULIN (NOVOLOG) ASPART 100 UNITS/ML 10ML VIAL ONE ×2 (06:44→11:53)
[2018-11-18] MEDS ORDERED: NADOLOL 20 MG TABLET (FP) ONE (08:40)
[2018-11-18] MEDS: LACTULOSE 20 GM/30 ML UDC (FOR ORAL USE ONLY) PO SCH ×2 (09:02→22:15)
[2018-11-18] MEDS: LISINOPRIL 10 MG TABLET (FP) PO SCH (09:03)
[2018-11-18] MEDS: PREGABALIN 50 MG CAPSULE PO SCH (09:03)
[2018-11-18] MEDS: PRENATAL VITAMINS W/ FOLIC ACID TABLET (FP) PO SCH (09:03)
[2018-11-18] MEDS: NADOLOL 40 MG TABLET (FP) PO SCH (09:03)
[2018-11-18] MEDS: PANTOPRAZOLE 40 MG TABLET (FP) PO SCH (09:04)
[2018-11-18] MEDS: TOLNAFTATE 1% CREAM 15 GM TUBE TP SCH ×2 (09:04→22:15)
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
[2018-11-18 15:57] LABS: ALK PHOS 220 U/L (45-117); ANION GAP 9 MMOL/L (8-16); BILIRUBIN,TOTAL 0.2 mg/dL (0.2-1); BLOOD UREA NITROGEN 12 mg/dL (7-18); CALCIUM 8.2 mg/dL (8.5-10.1); CHLORIDE 99 mmol/L (98-107); CO2 23 mmol/L (21-32); CREATININE 0.7 mg/dL (0.55-1.3); POTASSIUM 4.6 mmol/L (3.5-5.1); SGOT/AST 70 U/L (15-37); SGPT/ALT 82 U/L (13-61); SODIUM 131 mmol/L (136-145); TOT PROT 6.5 g/dl (6.4-8.2)
[2018-11-18 16:03] LABS: GLUCOSE,RANDOM 487 mg/dL (74-106)
[2018-11-18] MEDS: INSULIN (LEVEMIR) 100 UNITS/ML UNITS SQ SCH (22:15)
[2018-11-18] MEDS: THIAMINE HCL 100 MG TABLET (FP) PO SCH (22:16)
[2018-11-19] MEDS: MAG HYDROX/AL HYDROX/SIMETH 30 ML UNIT-DOSE CUP PO PRN ×3 (00:38→19:17)
[2018-11-19] MEDS: AMOXICILLIN 500 MG CAPSULE (FP) PO SCH ×3 (06:39→21:31)
[2018-11-19] MEDS: INSULIN (NOVOLOG) ASPART 100 UNITS/ML 10ML VIAL SQ SCH ×3 (06:40→16:49)
[2018-11-19] MEDS ORDERED: INSULIN (NOVOLOG) ASPART 100 UNITS/ML 10ML VIAL ONE ×2 (06:41→11:30)
[2018-11-19] MEDS: VANCOMYCIN 250 MG/5 ML ORAL SOLUTION PO SCH ×3 (06:42→18:53)
[2018-11-19] MEDS ORDERED: NADOLOL 20 MG TABLET (FP) ONE (08:56)
[2018-11-19] MEDS: PANTOPRAZOLE 40 MG TABLET (FP) PO SCH (09:58)
[2018-11-19] MEDS: LISINOPRIL 10 MG TABLET (FP) PO SCH (09:58)
[2018-11-19] MEDS: PRENATAL VITAMINS W/ FOLIC ACID TABLET (FP) PO SCH (09:58)
[2018-11-19] MEDS: PREGABALIN 50 MG CAPSULE PO SCH (09:58)
[2018-11-19] MEDS: LACTULOSE 20 GM/30 ML UDC (FOR ORAL USE ONLY) PO SCH ×2 (09:59→21:32)
[2018-11-19] MEDS: NADOLOL 40 MG TABLET (FP) PO SCH (09:59)
[2018-11-19] MEDS: TOLNAFTATE 1% CREAM 15 GM TUBE TP SCH ×2 (10:01→21:33)
[2018-11-19] MEDS ORDERED: ONDANSETRON *ODT* 4 MG TABLET SL PRN (11:36)
[2018-11-19] MEDS: THIAMINE HCL 100 MG TABLET (FP) PO SCH (21:31)
[2018-11-19] MEDS: INSULIN (LEVEMIR) 100 UNITS/ML UNITS SQ SCH (21:32)
[2018-11-20] MEDS: VANCOMYCIN 250 MG/5 ML ORAL SOLUTION PO SCH ×3 (00:04→11:52)
[2018-11-20] MEDS: INSULIN (NOVOLOG) ASPART 100 UNITS/ML 10ML VIAL SQ SCH ×2 (06:30→11:56)
[2018-11-20] MEDS ORDERED: INSULIN (NOVOLOG) ASPART 100 UNITS/ML 10ML VIAL ONE ×3 (06:31→11:56)
[2018-11-20] MEDS: MAG HYDROX/AL HYDROX/SIMETH 30 ML UNIT-DOSE CUP PO PRN (06:32)
[2018-11-20] MEDS: AMOXICILLIN 500 MG CAPSULE (FP) PO SCH (06:32)
[2018-11-20] MEDS ORDERED: NADOLOL 20 MG TABLET (FP) ONE (09:13)
[2018-11-20] MEDS ORDERED: PT OWN MED DRAWER 7, Y5N ONE (09:15)
[2018-11-20] MEDS ORDERED: PREGABALIN 75 MG CAPSULE PO SCH (10:00)
[2018-11-20] MEDS: NADOLOL 40 MG TABLET (FP) PO SCH (10:31)
[2018-11-20] MEDS: LISINOPRIL 10 MG TABLET (FP) PO SCH (10:32)
[2018-11-20] MEDS: PANTOPRAZOLE 40 MG TABLET (FP) PO SCH (10:32)
[2018-11-20] MEDS: LACTULOSE 20 GM/30 ML UDC (FOR ORAL USE ONLY) PO SCH (10:32)
[2018-11-20] MEDS: PRENATAL VITAMINS W/ FOLIC ACID TABLET (FP) PO SCH (10:32)
[2018-11-20] MEDS: TOLNAFTATE 1% CREAM 15 GM TUBE TP SCH (10:35)
[2018-11-20 11:32] LABS: ALBUMIN 2.1 g/dl (3.4-5.0); ALK PHOS 249 U/L (45-117); ANION GAP 10 MMOL/L (8-16); BILIRUBIN,TOTAL 0.2 mg/dL (0.2-1); BLOOD UREA NITROGEN 14 mg/dL (7-18); CALCIUM 8.4 mg/dL (8.5-10.1); CHLORIDE 103 mmol/L (98-107); CO2 20 mmol/L (21-32); CREATININE 0.6 mg/dL (0.55-1.3); POTASSIUM 4.6 mmol/L (3.5-5.1); SGOT/AST 56 U/L (15-37); SGPT/ALT 66 U/L (13-61); SODIUM 133 mmol/L (136-145); TOT PROT 6.6 g/dl (6.4-8.2)
[2018-11-20 12:08] LABS: GLUCOSE,RANDOM 421 mg/dL (74-106)
[2018-11-20 13:12] VITALS: BP 134/84; PULSE 84; TEMP 97.8
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
--- NOTE | 2018-11-20 14:23 | PN ---
[facility] Progress Note Note: patient decided to sign out today ignoring strong recommendations to complete inpatient rehabilitation.She is still high risk for relapse.Supportive therapy provided focusing on coping skills,support utilization to maintain recovery.
[2018-11-21] MEDS ORDERED: NADOLOL 20 MG TABLET (FP) PO SCH (10:00)
== END 2018-11-20 14:05 | disposition left against medical advice (07) | DRG 894 ==
LOC: YASAS 16:24 → Y3E 19:33
PROVIDERS: ADMIT Psychiatry & Neurology Psychiatry; ATTEND Psychiatry & Neurology Psychiatry
PROC: HZ2ZZZZ Detoxification Services for Substance Abuse Treatment (ICD-10-PCS; principal; 2018-11-17)
DX: F10.230 Alcohol dependence with withdrawal, uncomplicated (principal); F14.20 Cocaine dependence, uncomplicated; E87.1 Hypo-osmolality and hyponatremia; E72.20 Disorder of urea cycle metabolism, unspecified; F17.210 Nicotine dependence, cigarettes, uncomplicated; F19.24 Other psychoactive substance dependence with psychoactive substance-induced mood disorder; I10 Essential (primary) hypertension; K21.9 Gastro-esophageal reflux disease without esophagitis; K74.60 Unspecified cirrhosis of liver; I25.2 Old myocardial infarction; G62.9 Polyneuropathy, unspecified; E10.65 Type 1 diabetes mellitus with hyperglycemia; Z91.013 Allergy to seafood; Z79.4 Long term (current) use of insulin; W01.0XXA Fall on same level from slipping, tripping and stumbling without subsequent striking against object, initial encounter; Y93.E1 Activity, personal bathing and showering; Y92.231 Patient bathroom in hospital as the place of occurrence of the external cause; Z59.0 Homelessness
CPT/HCPCS: 36415; 80053; 82962; 86593; Q0162

== ENCOUNTER 2019-01-17 08:32 | Inpatient (IN) | payer MEDICARE, OTHER ==
[2019-01-17 09:14] VITALS: BMI 27.1
--- NOTE | 2019-01-17 09:34 | HP ---
CIWA Score Nausea/Vomitin Muscle Tremors: 2 Anxiety: 2 Agitation: 2 Paroxysmal Sweats: 1-Minimal Palms Moist Orientation: 0-Oriented Tacttile Disturbances: 1-Very Mild Itch/Numbness Auditory Disturbances: 1-Very Mild Visual Disturbances: 0-None Headache: 2-Mild CIWA-Ar Total Score: 13 - Admission Criteria OASAS Guidelines: Admission for Medically Managed Detox: Requires at least one of the followin. CIWA greater than 12 2. Seizures within the past 24 hours 3. Delirium tremens within the past 24 hours 4. Hallucinations within the past 24 hours 5. Acute intervention needed for co occurring medical disorder 6. Acute intervention needed for co occurring psychiatric disorder 7. Severe withdrawal that cannot be handled at a lower level of care (continued vomiting, continued diarrhea, abnormal vital signs) requiring intravenous medication and/or fluids 8. Patient presents the following: CIWA greater than 12 Admission Criteria Met: Admission criteria met Admission ROS S - HPI Chief Complaint: i need help to stop drinking alcohol and crack Allergies/Adverse Reactions: Allergies Allergy/AdvReac Type Severity Reaction Status Date / Time fish derived Allergy Severe Swelling Verified 01/17/19 09:19 shellfish derived Allergy Severe Swelling Verified 01/17/19 09:19 No Known Drug Allergies Allergy Verified 01/17/19 09:19 SEAFOOD Allergy Severe Swelling Uncoded 01/17/19 09:19 History of Present Illness: this 48 years old female with alcohol dependence and crack dependence,seeking detox,withdrawal symptom,last 11/17/18 to 11/20/18 [facility] seen in [place] discharge this am from [place] receiving iv and librium at [place] history of hypertension,cirrhosis and high ammonia level also iddm neuropathy head injury 3 years ago neck injury ,surgery at [facility] longest period of sobriety for 6 months Exam Limitations: No Limitations - Ebola screening Have you been sick,other than usual withdrawal symptoms: No - Review of Systems Constitutional: Loss of Appetite, Malaise, Night Sweats, Changes in sleep, Weakness EENT: reports: Nose Congestion Respiratory: reports: No Symptoms reported Cardiac: reports: No Symptoms Reported GI: reports: Nausea, Poor Appetite, Abdominal cramping : reports: No Symptoms Reported Musculoskeletal: reports: Back Pain, Muscle Pain, Neck Pain Integumentary: reports: Dryness Neuro: reports: Headache, Tremors Endocrine: reports: Other (iddm) Hematology: reports: No Symptoms Reported Psychiatric: reports: No Sypmtoms Reported, Judgement Intact, Mood/Affect Appropiate, Orientated x3, other (insomnia) Other Systems: Reviewed and Negative Patient History - Patient Medical History Hx Anemia: No Hx Asthma: No Hx Chronic Obstructive Pulmonary Disease (COPD): No Hx Cancer: No Hx Cardiac Disorders: No Hx Congestive Heart Failure: No Hx Hypertension: Yes (on med) Hx Hypercholesterolemia: No Hx Pacemaker: No HX Cerebrovascular Accident: No Hx Seizures: No Hx Dementia: No Hx Diabetes: Yes (iddm) Hx Gastrointestinal Disorders: No Hx Liver Disease: Yes (cirrhosis) Hx Genitourinary Disorders: No Hx Sexually Transmitted Disorders: No Hx Renal Disease (ESRD): No Hx Thyroid Disease: No Hx Human Immunodeficiency Virus (HIV): No (NEGATIVE HX last 10/18 negative) Hx Hepatitis C: No (NEGATIVE ) Hx Depression: No Hx Suicide Attempt: No Hx Bipolar Disorder: No Hx Schizophrenia: No Other Medical History: no suicidal,no homicidal,s/p neck sugery,neuropathy - Patient Surgical History Past Surgical History: Yes Hx Neurologic Surgery: No Hx Cataract Extraction: No Hx Cardiac Surgery: No Hx Lung Surgery: No Hx Breast Surgery: No Hx Breast Biopsy: No Hx Abdominal Surgery: Yes (TUBAL LIGATION IN 2005) Hx Appendectomy: Yes (10/25/17) Hx Cholecystectomy: Yes (lap ) Hx Genitourinary Surgery: No Hx Section: No Hx Orthopedic Surgery: Yes (neck, 11/30/2015 (fall);SX COCYX DUE TO OSTEOMYLITIS - 2010) Other Surgical History: Pt had sx for intestinal blockage in 11/16 in [facility] 11/16 Anesthesia Reaction: No - PPD History Previous Implant?: Yes Documented Results: Negative w/proof Implanted On Prior [facility] Admission?: Yes Date: 11/11/18 Results: 0 mm PPD to be Administered?: No - Reproductive History Patient is a Female of Child Bearing Age (11 -55 yrs old): Yes Last Menstrual Period: 08/13/18 Patient : No - Smoking Cessation Smoking history: Never smoked Have you smoked in the past 12 months: No Aproximately how many cigarettes per day: 0 Cigars Per Day: 0 Hx Chewing Tobacco Use: No - Substance & Tx. History Hx Alcohol Use: Yes Hx Substance Use: Yes Substance Use Type: Alcohol, Cocaine Hx Substance Use Treatment: Yes ([facility] rehab 11/17/18 to 11/20/18) - Substances Abused Alcohol Route: Oral Frequency: Daily Amount used: 1 LITER VODKA Age of first use: 44 Date of Last Use: 01/15/19 Crack Route: Smoking Frequency: 1-2 times per week Amount used: 1 DIME Age of first use: 45 Date of Last Use: 01/13/19 Family Disease History - Family Disease History Family Disease History: Diabetes: Grandparent (alcohol), Father (alive: 68: HTN) , Mother (alive: 67), Other: Grandparent, Father, Mother Admission Physical Exam S - Vital Signs Vital Signs: Vital Signs - 24 hr 01/17/19 09:12 Temperature 96.7 F L Pulse Rate 92 H Respiratory 18 Rate Blood Pressure 157/95 - Physical General Appearance: Yes: Moderate Distress, Tremorous, Irritable, Sweating, Anxious HEENTM: Yes: Normal ENT Inspection, HIGINIO, Pharynx Normal, Other (surgical scar of neck) Respiratory: Yes: Lungs Clear, Normal Breath Sounds, No Respiratory Distress Neck: Yes: Supple, Trachea in good position, Other (scar of neck posterior) Breast: Yes: Breast Exam Deferred Cardiology: Yes: Within Normal Limits, Regular Rhythm, Regular Rate, S1, S2 Abdominal: Yes: Within Normal Limits, Normal Bowel Sounds, Soft, Surgical Scar Genitourinary: Yes: Within Normal Limits Back: Yes: Muscle Spasm Musculoskeletal: Yes: Back pain, Muscle Pain Extremities: Yes: Tremors 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: Yes: system technologist II-XII NML intact, Fully Oriented, Alert, Motor Strength 5/5 Integumentary: Yes: Dry Lymphatic: Yes: Within Normal Limits - Diagnostic (1) Alcohol dependence with uncomplicated withdrawal Current Visit: No Status: Chronic (2) Chronic liver disease and cirrhosis Current Visit: No Status: Chronic (3) Cocaine dependence Current Visit: No Status: Chronic (4) Diabetes mellitus, insulin dependent (IDDM), uncontrolled Current Visit: No Status: Chronic Qualifiers: Glycemic state: with hyperglycemia Qualified Code(s): E10.65 - Type 1 diabetes mellitus with hyperglycemia (5) GERD (gastroesophageal reflux disease) Current Visit: No Status: Chronic Qualifiers: (6) Hypertension Current Visit: No Status: Chronic Qualifiers: Hypertension type: essential hypertension Qualified Code(s): I10 - Essential (primary) hypertension (7) Polyneuropathy Current Visit: No Status: Chronic Cleared for Admission [facility] - Detox or Rehab [facility] Level of Care: Medically Managed Detox Regimen/Protocol: Librium [facility] Breath Alcohol Content Breath Alcohol Content: 0 Urine Pregancy Test - Result Urine Test Results: Negative- NO Line Present Urine Drug Screen - Results Drug Screen Negative: No Urine Drug Screen Results: DEEPAK-Cocaine, BZO-Benzodiazepines Inpatient Rehab Admission - Rehab Decision to Admit Inpatient rehab admission?: No
[2019-01-17] MEDS ORDERED: MAGNESIUM CITRATE 300 ML BOTTLE PO PRN (09:49)
[2019-01-17] MEDS ORDERED: ACETAMINOPHEN 325 MG TABLET (FP) PO PRN (09:49)
[2019-01-17] MEDS ORDERED: MAG HYDROX/AL HYDROX/SIMETH 30 ML UNIT-DOSE CUP PO PRN (09:49)
[2019-01-17] MEDS ORDERED: MENTHOL/PHENOL 1 EACH UD MM PRN (09:49)
[2019-01-17] MEDS ORDERED: MAGNESIUM HYDROX 2400MG/30ML ORAL SUSPENSION 30 ML CUP PO PRN (09:49)
[2019-01-17] MEDS ORDERED: chlordiazePOXIDE HCL 25 MG CAPSULE PO PRN (09:49)
[2019-01-17] MEDS ORDERED: P-EPHED 60MG/TRIPROLIDI 2.5MG TABLET PO PRN (09:49)
[2019-01-17] MEDS ORDERED: guaiFENesin/D-METHORPHAN HB 10 ML UNIT-DOSE CUPS PO PRN (09:49)
[2019-01-17] MEDS ORDERED: INSULIN (NOVOLOG) ASPART 100 UNITS/ML 10ML VIAL ONE ×3 (11:01→21:58)
[2019-01-17] MEDS: LISINOPRIL 10 MG TABLET (FP) PO SCH (11:17)
[2019-01-17] MEDS: PRENATAL VITAMINS W/ FOLIC ACID TABLET (FP) PO SCH (11:19)
[2019-01-17] MEDS: INSULIN SLIDING SCALE (NOVOLOG) 1 VIAL SQ SCH ×3 (11:45→22:05)
[2019-01-17] MEDS: hydrOXYzine PAMOATE 25 MG CAPSULE (FP) PO PRN (13:53)
[2019-01-17] MEDS ORDERED: NADOLOL 20 MG TABLET (FP) ONE (14:47)
[2019-01-17] MEDS: CYCLOBENZAPRINE HCL 10 MG TABLET (FP) PO PRN ×2 (14:50→22:03)
[2019-01-17] MEDS: NADOLOL 40 MG TABLET (FP) PO SCH (14:53)
[2019-01-17] MEDS: chlordiazePOXIDE HCL 25 MG CAPSULE PO SCH ×2 (16:45→22:03)
[2019-01-17] MEDS: LOPERAMIDE HCL 2 MG CAPSULE PO PRN (16:48)
[2019-01-17] MEDS: THIAMINE HCL 100 MG TABLET (FP) PO SCH (22:03)
[2019-01-17] MEDS: INSULIN (LEVEMIR) 100 UNITS/ML UNITS SQ SCH (22:05)
[2019-01-17 22:14] LABS: URINE APPEARANCE CLEAR; URINE BILIRUBIN NEGATIVE (<2.0 mg/dL); URINE COLOR STRAW; URINE GLUCOSE (UA) 3+ (NEGATIVE); URINE KETONE TRACE (NEGATIVE); URINE LEUK ESTERASE NEGATIVE (NEGATIVE); URINE NITRITE NEGATIVE (NEGATIVE); URINE PROTEIN 2+ (NEGATIVE); URINE UROBILINOGEN NEGATIVE mg/dL (0.2-1.0)
[2019-01-17 22:21] LABS: EPI CELLS RARE /HPF (FEW)
[2019-01-18] MEDS: chlordiazePOXIDE HCL 25 MG CAPSULE PO SCH ×4 (05:55→22:28)
[2019-01-18] MEDS ORDERED: INSULIN (NOVOLOG) ASPART 100 UNITS/ML 10ML VIAL ONE ×3 (06:42→21:33)
[2019-01-18] MEDS: INSULIN SLIDING SCALE (NOVOLOG) 1 VIAL SQ SCH ×4 (08:08→22:28)
[2019-01-18] MEDS: PRENATAL VITAMINS W/ FOLIC ACID TABLET (FP) PO SCH (10:19)
[2019-01-18] MEDS: LISINOPRIL 10 MG TABLET (FP) PO SCH (10:20)
[2019-01-18] MEDS: NADOLOL 40 MG TABLET (FP) PO SCH (10:20)
[2019-01-18] MEDS: PANTOPRAZOLE 40 MG TABLET (FP) PO SCH (10:22)
[2019-01-18] MEDS: SELENIUM SULFIDE 2.25% 180 ML SHAMPOO TP SCH (10:23)
--- NOTE | 2019-01-18 11:04 | PN ---
S CIWA - CIWA Score Nausea/Vomitin-No Nausea/No Vomiting Muscle Tremors: 3 Anxiety: 3 Agitation: 3 Paroxysmal Sweats: 4-Forehead w/Sweat Beads Orientation: 0-Oriented Tacttile Disturbances: 0-None Auditory Disturbances: 0-None Visual Disturbances: 0-None Headache: 0-None Present CIWA-Ar Total Score: 13 [facility] Progress Note (SOAP) Subjective: sweats body aches chills interrupted sleep Objective: 01/18/19 11:02 Vital Signs Temperature 98.2 F 01/18/19 09:58 Pulse Rate 67 01/18/19 09:58 Respiratory Rate 18 01/18/19 09:58 Blood Pressure 98/52 L 01/18/19 09:58 O2 Sat by Pulse Oximetry (%) Laboratory Tests 01/17/19 01/17/19 01/17/19 09:59 16:14 16:38 POC Glucometer 539 561 Urine Color Straw Urine Appearance Clear Urine pH 7.0 Ur Specific [place] 1.021 Urine Protein 2+ H Urine Glucose (UA) 3+ H Urine Ketones Trace H Urine Blood 2+ H Urine Nitrite Negative Urine Bilirubin Negative Urine Urobilinogen Negative Ur Leukocyte Esterase Negative Urine WBC (Auto) 1 Urine RBC (Auto) 17 Ur Epithelial Cells Rare 01/17/19 01/18/19 21:44 05:57 POC Glucometer 457 213 Urine Color Urine Appearance Urine pH Ur Specific [place] Urine Protein Urine Glucose (UA) Urine Ketones Urine Blood Urine Nitrite Urine Bilirubin Urine Urobilinogen Ur Leukocyte Esterase Urine WBC (Auto) Urine RBC (Auto) Ur Epithelial Cells rest of labs pending aaox3 ambulating no acute distress Assessment: 01/18/19 11:03 withdrawal sx Plan: continue detox increase water intake in moderation
[2019-01-18 11:14] LABS: ALBUMIN 1.8 g/dl (3.4-5.0); ALK PHOS 174 U/L (45-117); ANION GAP 7 MMOL/L (8-16); BILIRUBIN,TOTAL 0.2 mg/dL (0.2-1); BLOOD UREA NITROGEN 11 mg/dL (7-18); CALCIUM 7.8 mg/dL (8.5-10.1); CHLORIDE 107 mmol/L (98-107); CO2 22 mmol/L (21-32); CREATININE 0.5 mg/dL (0.55-1.3); GLUCOSE,RANDOM 211 mg/dL (74-106); POTASSIUM 3.7 mmol/L (3.5-5.1); SGOT/AST 33 U/L (15-37); SGPT/ALT 42 U/L (13-61); SODIUM 136 mmol/L (136-145)
[2019-01-18] MEDS: INSULIN (LEVEMIR) 100 UNITS/ML UNITS SQ SCH (22:27)
[2019-01-18] MEDS: THIAMINE HCL 100 MG TABLET (FP) PO SCH (22:28)
[2019-01-19] MEDS: chlordiazePOXIDE HCL 25 MG CAPSULE PO SCH ×2 (05:54→10:20)
[2019-01-19] MEDS ORDERED: INSULIN (NOVOLOG) ASPART 100 UNITS/ML 10ML VIAL ONE ×3 (05:58→22:46)
[2019-01-19] MEDS: INSULIN SLIDING SCALE (NOVOLOG) 1 VIAL SQ SCH ×4 (06:10→22:49)
[2019-01-19] MEDS: NADOLOL 20 MG TABLET (FP) PO SCH (10:19)
[2019-01-19] MEDS: LISINOPRIL 10 MG TABLET (FP) PO SCH (10:20)
[2019-01-19] MEDS: SELENIUM SULFIDE 2.25% 180 ML SHAMPOO TP SCH (10:20)
[2019-01-19] MEDS: PRENATAL VITAMINS W/ FOLIC ACID TABLET (FP) PO SCH (10:20)
[2019-01-19] MEDS: PANTOPRAZOLE 40 MG TABLET (FP) PO SCH (10:20)
[2019-01-19] MEDS: hydrOXYzine PAMOATE 25 MG CAPSULE (FP) PO PRN ×2 (10:23→22:48)
--- NOTE | 2019-01-19 10:47 | PN ---
[facility] CIWA - CIWA Score Nausea/Vomitin-No Nausea/No Vomiting Muscle Tremors: 3 Anxiety: 3 Agitation: 2 Paroxysmal Sweats: 3 Orientation: 0-Oriented Tacttile Disturbances: 0-None Auditory Disturbances: 0-None Visual Disturbances: 0-None Headache: 0-None Present CIWA-Ar Total Score: 11 S Progress Note (SOAP) Subjective: sweats irritable agitation body aches Objective: 01/19/19 10:45 Vital Signs Temperature 98.6 F 01/19/19 10:08 Pulse Rate 78 01/19/19 10:08 Respiratory Rate 18 01/19/19 10:08 Blood Pressure 127/69 01/19/19 10:08 O2 Sat by Pulse Oximetry (%) Laboratory Tests 01/17/19 01/17/19 01/17/19 09:59 16:14 16:38 WBC Corrected WBC (auto) RBC Hgb Hct MCV MCH MCHC RDW Plt Count MPV Manual Slide Review Platelet Comment Sodium Potassium Chloride Carbon Dioxide Anion Gap BUN Creatinine Creat Clearance w eGFR POC Glucometer 539 561 Random Glucose Calcium Total Bilirubin AST ALT Alkaline Phosphatase Ammonia Total Protein Albumin Urine Color Straw Urine Appearance Clear Urine pH 7.0 Ur Specific [place] 1.021 Urine Protein 2+ H Urine Glucose (UA) 3+ H Urine Ketones Trace H Urine Blood 2+ H Urine Nitrite Negative Urine Bilirubin Negative Urine Urobilinogen Negative Ur Leukocyte Esterase Negative Urine WBC (Auto) 1 Urine RBC (Auto) 17 Ur Epithelial Cells Rare RPR Titer 01/17/19 01/18/19 01/18/19 21:44 05:57 07:50 WBC Cancelled Corrected WBC (auto) Cancelled RBC Cancelled Hgb Cancelled Hct Cancelled MCV Cancelled MCH Cancelled MCHC Cancelled RDW Cancelled Plt Count Cancelled MPV Cancelled Manual Slide Review Cancelled Platelet Comment Cancelled Sodium Potassium Chloride Carbon Dioxide Anion Gap BUN Creatinine Creat Clearance w eGFR POC Glucometer 457 213 Random Glucose Calcium Total Bilirubin AST ALT Alkaline Phosphatase Ammonia Total Protein Albumin Urine Color Urine Appearance Urine pH Ur Specific [place] Urine Protein Urine Glucose (UA) Urine Ketones Urine Blood Urine Nitrite Urine Bilirubin Urine Urobilinogen Ur Leukocyte Esterase Urine WBC (Auto) Urine RBC (Auto) Ur Epithelial Cells RPR Titer 01/18/19 01/18/19 01/18/19 07:50 07:50 07:50 WBC Corrected WBC (auto) RBC Hgb Hct MCV MCH MCHC RDW Plt Count MPV Manual Slide Review Platelet Comment Sodium 136 Potassium 3.7 Chloride 107 Carbon Dioxide 22 Anion Gap 7 L BUN 11 Creatinine 0.5 L Creat Clearance w eGFR > 60 POC Glucometer Random Glucose 211 H Calcium 7.8 L Total Bilirubin 0.2 AST 33 ALT 42 Alkaline Phosphatase 174 H Ammonia 120.10 H Total Protein 6.0 L Albumin 1.8 L Urine Color Urine Appearance Urine pH Ur Specific [place] Urine Protein Urine Glucose (UA) Urine Ketones Urine Blood Urine Nitrite Urine Bilirubin Urine Urobilinogen Ur Leukocyte Esterase Urine WBC (Auto) Urine RBC (Auto) Ur Epithelial Cells RPR Titer Nonreactive 01/18/19 01/18/19 01/18/19 10:47 16:33 21:27 WBC Corrected WBC (auto) RBC Hgb Hct MCV MCH MCHC RDW Plt Count MPV Manual Slide Review Platelet Comment Sodium Potassium Chloride Carbon Dioxide Anion Gap BUN Creatinine Creat Clearance w eGFR POC Glucometer 147 447 468 Random Glucose Calcium Total Bilirubin AST ALT Alkaline Phosphatase Ammonia Total Protein Albumin Urine Color Urine Appearance Urine pH Ur Specific [place] Urine Protein Urine Glucose (UA) Urine Ketones Urine Blood Urine Nitrite Urine Bilirubin Urine Urobilinogen Ur Leukocyte Esterase Urine WBC (Auto) Urine RBC (Auto) Ur Epithelial Cells RPR Titer 01/19/19 01/19/19 05:53 10:40 WBC Corrected WBC (auto) RBC Hgb Hct MCV MCH MCHC RDW Plt Count MPV Manual Slide Review Platelet Comment Sodium Potassium Chloride Carbon Dioxide Anion Gap BUN Creatinine Creat Clearance w eGFR POC Glucometer 418 368 Random Glucose Calcium Total Bilirubin AST ALT Alkaline Phosphatase Ammonia Total Protein Albumin Urine Color Urine Appearance Urine pH Ur Specific [place] Urine Protein Urine Glucose (UA) Urine Ketones Urine Blood Urine Nitrite Urine Bilirubin Urine Urobilinogen Ur Leukocyte Esterase Urine WBC (Auto) Urine RBC (Auto) Ur Epithelial Cells RPR Titer aaox3 lying in bed labs noted elevated ammonia level 120.10; laculose 20meq QID ordered will repeat labs Assessment: 01/19/19 10:46 withdrawal sx Plan: continue detox increase fluids laculose ordered repeat labs
[2019-01-19] MEDS ORDERED: LACTULOSE 20 GM/30 ML UDC (FOR ORAL USE ONLY) PO ONE (11:45)
[2019-01-19] MEDS: LACTULOSE 20 GM/30 ML UDC (FOR ORAL USE ONLY) PO SCH ×3 (13:41→22:42)
[2019-01-19] MEDS: chlordiazePOXIDE 5 MG CAPSULE PO SCH ×2 (17:33→23:49)
[2019-01-19] MEDS: MELATONIN 5 MG TABLETS PO PRN (22:49)
[2019-01-19] MEDS: THIAMINE HCL 100 MG TABLET (FP) PO SCH (22:49)
[2019-01-19] MEDS: INSULIN (LEVEMIR) 100 UNITS/ML UNITS SQ SCH (22:50)
[2019-01-20] MEDS: chlordiazePOXIDE 5 MG CAPSULE PO SCH ×2 (06:29→10:09)
[2019-01-20] MEDS ORDERED: INSULIN (NOVOLOG) ASPART 100 UNITS/ML 10ML VIAL ONE ×4 (06:59→22:36)
[2019-01-20] MEDS: INSULIN SLIDING SCALE (NOVOLOG) 1 VIAL SQ SCH ×4 (07:59→22:36)
[2019-01-20] MEDS: NADOLOL 20 MG TABLET (FP) PO SCH (10:08)
[2019-01-20] MEDS: LACTULOSE 20 GM/30 ML UDC (FOR ORAL USE ONLY) PO SCH ×4 (10:08→22:32)
[2019-01-20] MEDS: PRENATAL VITAMINS W/ FOLIC ACID TABLET (FP) PO SCH (10:08)
[2019-01-20] MEDS: PANTOPRAZOLE 40 MG TABLET (FP) PO SCH (10:09)
[2019-01-20] MEDS: LISINOPRIL 10 MG TABLET (FP) PO SCH (10:09)
[2019-01-20] MEDS: SELENIUM SULFIDE 2.25% 180 ML SHAMPOO TP SCH (10:09)
[2019-01-20 11:32] LABS: ALBUMIN 1.8 g/dl (3.4-5.0); ALK PHOS 193 U/L (45-117); ANION GAP 9 MMOL/L (8-16); BILIRUBIN,TOTAL 0.2 mg/dL (0.2-1); BLOOD UREA NITROGEN 10 mg/dL (7-18); CALCIUM 8.4 mg/dL (8.5-10.1); CHLORIDE 107 mmol/L (98-107); CO2 19 mmol/L (21-32); CREATININE 0.5 mg/dL (0.55-1.3); POTASSIUM 4.3 mmol/L (3.5-5.1); SGOT/AST 40 U/L (15-37); SGPT/ALT 50 U/L (13-61); SODIUM 136 mmol/L (136-145); TOT PROT 6.3 g/dl (6.4-8.2)
[2019-01-20 11:37] LABS: HEMATOCRIT 35.7 % (32.4-45.2); HEMOGLOBIN 11.8 GM/dL (10.7-15.3); MCH 27.2 pg (25.7-33.7); MEAN CELL VOLUME 82.3 fl (80-96); MEAN PLT VOLUME 9.2 fl (7.5-11.1); PLATELET COUNT 171 K/MM3 (134-434); RBC 4.34 M/mm3 (3.60-5.2); RDW 21.1 % (11.6-15.6); WHITE BLOOD COUNT 3.4 K/mm3 (4.0-10.0)
[2019-01-20 11:42] LABS: ADD RBC MORPHOLOGY YES
[2019-01-20 11:48] LABS: GLUCOSE,RANDOM 358 mg/dL (74-106)
--- NOTE | 2019-01-20 11:58 | PN ---
[facility] Progress Note (SOAP) Subjective: sweats shakes interrupted sleep cough body aches Objective: 01/20/19 11:57 Vital Signs Temperature 97.7 F 01/20/19 09:44 Pulse Rate 73 01/20/19 09:44 Respiratory Rate 18 01/20/19 09:44 Blood Pressure 134/82 01/20/19 09:44 O2 Sat by Pulse Oximetry (%) Laboratory Tests 01/17/19 01/17/19 01/17/19 09:59 16:14 16:38 WBC Corrected WBC (auto) RBC Hgb Hct MCV MCH MCHC RDW Plt Count MPV Absolute Neuts (auto) Neutrophils % Lymphocytes % Nucleated RBC % Manual Slide Review Platelet Comment Sodium Potassium Chloride Carbon Dioxide Anion Gap BUN Creatinine Creat Clearance w eGFR POC Glucometer 539 561 Random Glucose Calcium Total Bilirubin AST ALT Alkaline Phosphatase Ammonia Total Protein Albumin Urine Color Straw Urine Appearance Clear Urine pH 7.0 Ur Specific [place] 1.021 Urine Protein 2+ H Urine Glucose (UA) 3+ H Urine Ketones Trace H Urine Blood 2+ H Urine Nitrite Negative Urine Bilirubin Negative Urine Urobilinogen Negative Ur Leukocyte Esterase Negative Urine WBC (Auto) 1 Urine RBC (Auto) 17 Ur Epithelial Cells Rare RPR Titer 01/17/19 01/18/19 01/18/19 21:44 05:57 07:50 WBC Cancelled Corrected WBC (auto) Cancelled RBC Cancelled Hgb Cancelled Hct Cancelled MCV Cancelled MCH Cancelled MCHC Cancelled RDW Cancelled Plt Count Cancelled MPV Cancelled Absolute Neuts (auto) Neutrophils % Lymphocytes % Nucleated RBC % Manual Slide Review Cancelled Platelet Comment Cancelled Sodium Potassium Chloride Carbon Dioxide Anion Gap BUN Creatinine Creat Clearance w eGFR POC Glucometer 457 213 Random Glucose Calcium Total Bilirubin AST ALT Alkaline Phosphatase Ammonia Total Protein Albumin Urine Color Urine Appearance Urine pH Ur Specific [place] Urine Protein Urine Glucose (UA) Urine Ketones Urine Blood Urine Nitrite Urine Bilirubin Urine Urobilinogen Ur Leukocyte Esterase Urine WBC (Auto) Urine RBC (Auto) Ur Epithelial Cells RPR Titer 01/18/19 01/18/19 01/18/19 07:50 07:50 07:50 WBC Corrected WBC (auto) RBC Hgb Hct MCV MCH MCHC RDW Plt Count MPV Absolute Neuts (auto) Neutrophils % Lymphocytes % Nucleated RBC % Manual Slide Review Platelet Comment Sodium 136 Potassium 3.7 Chloride 107 Carbon Dioxide 22 Anion Gap 7 L BUN 11 Creatinine 0.5 L Creat Clearance w eGFR > 60 POC Glucometer Random Glucose 211 H Calcium 7.8 L Total Bilirubin 0.2 AST 33 ALT 42 Alkaline Phosphatase 174 H Ammonia 120.10 H Total Protein 6.0 L Albumin 1.8 L Urine Color Urine Appearance Urine pH Ur Specific [place] Urine Protein Urine Glucose (UA) Urine Ketones Urine Blood Urine Nitrite Urine Bilirubin Urine Urobilinogen Ur Leukocyte Esterase Urine WBC (Auto) Urine RBC (Auto) Ur Epithelial Cells RPR Titer Nonreactive 01/18/19 01/18/19 01/18/19 10:47 16:33 21:27 WBC Corrected WBC (auto) RBC Hgb Hct MCV MCH MCHC RDW Plt Count MPV Absolute Neuts (auto) Neutrophils % Lymphocytes % Nucleated RBC % Manual Slide Review Platelet Comment Sodium Potassium Chloride Carbon Dioxide Anion Gap BUN Creatinine Creat Clearance w eGFR POC Glucometer 147 447 468 Random Glucose Calcium Total Bilirubin AST ALT Alkaline Phosphatase Ammonia Total Protein Albumin Urine Color Urine Appearance Urine pH Ur Specific [place] Urine Protein Urine Glucose (UA) Urine Ketones Urine Blood Urine Nitrite Urine Bilirubin Urine Urobilinogen Ur Leukocyte Esterase Urine WBC (Auto) Urine RBC (Auto) Ur Epithelial Cells RPR Titer 01/19/19 01/19/19 01/19/19 05:53 10:40 16:21 WBC Corrected WBC (auto) RBC Hgb Hct MCV MCH MCHC RDW Plt Count MPV Absolute Neuts (auto) Neutrophils % Lymphocytes % Nucleated RBC % Manual Slide Review Platelet Comment Sodium Potassium Chloride Carbon Dioxide Anion Gap BUN Creatinine Creat Clearance w eGFR POC Glucometer 418 368 433 Random Glucose Calcium Total Bilirubin AST ALT Alkaline Phosphatase Ammonia Total Protein Albumin Urine Color Urine Appearance Urine pH Ur Specific [place] Urine Protein Urine Glucose (UA) Urine Ketones Urine Blood Urine Nitrite Urine Bilirubin Urine Urobilinogen Ur Leukocyte Esterase Urine WBC (Auto) Urine RBC (Auto) Ur Epithelial Cells RPR Titer 01/19/19 01/20/19 01/20/19 22:25 06:22 08:00 WBC 3.4 L Corrected WBC (auto) RBC 4.34 Hgb 11.8 Hct 35.7 D MCV 82.3 MCH 27.2 MCHC 33.0 RDW 21.1 H Plt Count 171 MPV 9.2 D Absolute Neuts (auto) 1.4 L Neutrophils % No Result Required. Lymphocytes % No Result Required. Nucleated RBC % 1 H Manual Slide Review Platelet Comment Sodium Potassium Chloride Carbon Dioxide Anion Gap BUN Creatinine Creat Clearance w eGFR POC Glucometer 400 345 Random Glucose Calcium Total Bilirubin AST ALT Alkaline Phosphatase Ammonia Total Protein Albumin Urine Color Urine Appearance Urine pH Ur Specific [place] Urine Protein Urine Glucose (UA) Urine Ketones Urine Blood Urine Nitrite Urine Bilirubin Urine Urobilinogen Ur Leukocyte Esterase Urine WBC (Auto) Urine RBC (Auto) Ur Epithelial Cells RPR Titer 01/20/19 01/20/19 01/20/19 08:00 08:22 11:01 WBC Corrected WBC (auto) RBC Hgb Hct MCV MCH MCHC RDW Plt Count MPV Absolute Neuts (auto) Neutrophils % Lymphocytes % Nucleated RBC % Manual Slide Review Platelet Comment Sodium 136 Potassium 4.3 Chloride 107 Carbon Dioxide 19 L Anion Gap 9 BUN 10 Creatinine 0.5 L Creat Clearance w eGFR > 60 POC Glucometer 390 Random Glucose 358 H* Calcium 8.4 L Total Bilirubin 0.2 AST 40 H ALT 50 Alkaline Phosphatase 193 H Ammonia Total Protein 6.3 L Albumin 1.8 L Urine Color Urine Appearance Urine pH Ur Specific [place] Urine Protein Urine Glucose (UA) Urine Ketones Urine Blood Urine Nitrite Urine Bilirubin Urine Urobilinogen Ur Leukocyte Esterase Urine WBC (Auto) Urine RBC (Auto) Ur Epithelial Cells RPR Titer Nonreactive aaox3 ambulating no acute distress Assessment: 01/20/19 11:58 withdrawal sx Plan: continue detox increase fluids
[2019-01-20 14:57] LABS: ANISOCYTOSIS 1+; MACROCYTOSIS 0; PLATELET ESTIMATE DECREASED
[2019-01-20] MEDS: chlordiazePOXIDE HCL 10 MG CAPSULE PO SCH ×2 (17:07→22:38)
[2019-01-20] MEDS: IBUPROFEN 400 MG TABLET (FP) PO PRN (19:45)
[2019-01-20] MEDS: THIAMINE HCL 100 MG TABLET (FP) PO SCH (22:32)
[2019-01-20] MEDS: INSULIN (LEVEMIR) 100 UNITS/ML UNITS SQ SCH (22:37)
[2019-01-21] MEDS ORDERED: INSULIN (NOVOLOG) ASPART 100 UNITS/ML 10ML VIAL ONE ×2 (06:43→11:27)
[2019-01-21] MEDS: hydrOXYzine PAMOATE 25 MG CAPSULE (FP) PO PRN ×2 (06:45→21:38)
[2019-01-21] MEDS: chlordiazePOXIDE HCL 10 MG CAPSULE PO SCH ×2 (07:37→10:20)
[2019-01-21] MEDS: INSULIN SLIDING SCALE (NOVOLOG) 1 VIAL SQ SCH ×4 (07:45→21:33)
--- NOTE | 2019-01-21 09:01 | DS ---
[facility] Detox Discharge Summary Admission Date: 01/17/19 Discharge Date: 01/21/19 - History Present History: Alcohol Dependence - Physical Exam Results Vital Signs: Vital Signs Temperature 98.3 F 01/21/19 06:11 Pulse Rate 73 01/21/19 06:11 Respiratory Rate 18 01/21/19 06:11 Blood Pressure 130/67 01/21/19 06:11 O2 Sat by Pulse Oximetry (%) - Treatment Hospital Course: Detox Protocol Followed, Detoxed Safely, Responded well, Discharged Condition Good, Rehab Referral Accepted - Medication Discharge Medications: Ambulatory Orders Esomeprazole Magnesium [Nexium 24Hr] 40 mg PO DAILY 11/09/18 Lisinopril [Prinivil] 10 mg PO DAILY 30 Days #30 tablet 11/17/18 Nadolol [Corgard -] 40 mg PO DAILY 30 Days #30 tablet 11/17/18 Pregabalin [Lyrica] 150 mg PO DAILY #45 capsule MDD 150mg 11/17/18 Insulin Glargine,Hum.rec.anlog [Lantus Solostar PEN (NF)] 45 units SQ HS - Diagnosis (1) Alcohol dependence with uncomplicated withdrawal Current Visit: Yes Status: Chronic (2) Chronic liver disease and cirrhosis Current Visit: Yes Status: Chronic (3) Cocaine dependence Current Visit: Yes Status: Chronic Qualifiers: Substance use status: uncomplicated Qualified Code(s): F14.20 - Cocaine dependence, uncomplicated (4) Diabetes mellitus, insulin dependent (IDDM), uncontrolled Current Visit: Yes Status: Chronic Qualifiers: Glycemic state: with hyperglycemia Qualified Code(s): E10.65 - Type 1 diabetes mellitus with hyperglycemia (5) Elevated glucose level Current Visit: No Status: Chronic (6) GERD (gastroesophageal reflux disease) Current Visit: Yes Status: Chronic Qualifiers: Esophagitis presence: without esophagitis (7) History of VT (myocardial infarction) Current Visit: Yes Status: Chronic (8) Hypertension Current Visit: Yes Status: Chronic Qualifiers: Hypertension type: essential hypertension Qualified Code(s): I10 - Essential (primary) hypertension (9) NSTEMI (non-ST elevated myocardial infarction) Current Visit: No Status: Chronic (10) Nicotine dependence Current Visit: Yes Status: Chronic Qualifiers: Nicotine product type: cigarettes Substance use status: uncomplicated Qualified Code(s): F17.210 - Nicotine dependence, cigarettes, uncomplicated (11) Polyneuropathy Current Visit: Yes Status: Chronic (12) Increased ammonia level Current Visit: Yes Status: Acute - AMA Did Patient Leave Against Medical Advice: No (referred to rehab/[facility] or [facility])
[2019-01-21] MEDS: SELENIUM SULFIDE 2.25% 180 ML SHAMPOO TP SCH (09:29)
[2019-01-21] MEDS: NADOLOL 20 MG TABLET (FP) PO SCH (10:19)
[2019-01-21] MEDS: CYCLOBENZAPRINE HCL 10 MG TABLET (FP) PO PRN (10:19)
[2019-01-21] MEDS: PRENATAL VITAMINS W/ FOLIC ACID TABLET (FP) PO SCH (10:19)
[2019-01-21] MEDS: PANTOPRAZOLE 40 MG TABLET (FP) PO SCH (10:19)
[2019-01-21] MEDS: LISINOPRIL 10 MG TABLET (FP) PO SCH (10:19)
[2019-01-21] MEDS: LACTULOSE 20 GM/30 ML UDC (FOR ORAL USE ONLY) PO SCH ×4 (10:20→21:28)
[2019-01-21] MEDS: THIAMINE HCL 100 MG TABLET (FP) PO SCH (21:28)
[2019-01-21] MEDS: INSULIN (LEVEMIR) 100 UNITS/ML UNITS SQ SCH (21:32)
[2019-01-22] MEDS: LOPERAMIDE HCL 2 MG CAPSULE PO PRN (00:57)
[2019-01-22] MEDS: INSULIN SLIDING SCALE (NOVOLOG) 1 VIAL SQ SCH ×4 (07:33→21:27)
[2019-01-22] MEDS: NADOLOL 20 MG TABLET (FP) PO SCH (10:04)
[2019-01-22] MEDS: LISINOPRIL 10 MG TABLET (FP) PO SCH (10:04)
[2019-01-22] MEDS: SELENIUM SULFIDE 2.25% 180 ML SHAMPOO TP SCH (10:04)
[2019-01-22] MEDS: PANTOPRAZOLE 40 MG TABLET (FP) PO SCH (10:04)
[2019-01-22] MEDS: PRENATAL VITAMINS W/ FOLIC ACID TABLET (FP) PO SCH (10:05)
[2019-01-22] MEDS: LACTULOSE 20 GM/30 ML UDC (FOR ORAL USE ONLY) PO SCH ×4 (10:05→21:31)
[2019-01-22] MEDS: hydrOXYzine PAMOATE 25 MG CAPSULE (FP) PO PRN ×2 (10:05→21:29)
[2019-01-22 10:25] LABS: URINE APPEARANCE CLEAR; URINE BILIRUBIN NEGATIVE (<2.0 mg/dL); URINE COLOR STRAW; URINE GLUCOSE (UA) 3+ (NEGATIVE); URINE KETONE NEGATIVE (NEGATIVE); URINE LEUK ESTERASE NEGATIVE (NEGATIVE); URINE NITRITE NEGATIVE (NEGATIVE); URINE PROTEIN 2+ (NEGATIVE); URINE UROBILINOGEN NEGATIVE mg/dL (0.2-1.0)
[2019-01-22 10:45] LABS: EPI CELLS RARE /HPF (FEW); URINE MUCUS RARE
[2019-01-22] MEDS ORDERED: INSULIN (NOVOLOG) ASPART 100 UNITS/ML 10ML VIAL ONE ×3 (11:56→21:27)
[2019-01-22] MEDS: IBUPROFEN 400 MG TABLET (FP) PO PRN (17:00)
[2019-01-22] MEDS: INSULIN (LEVEMIR) 100 UNITS/ML UNITS SQ SCH (21:28)
[2019-01-22] MEDS: THIAMINE HCL 100 MG TABLET (FP) PO SCH (21:29)
[2019-01-23] MEDS ORDERED: INSULIN (NOVOLOG) ASPART 100 UNITS/ML 10ML VIAL ONE ×3 (06:10→16:04)
[2019-01-23] MEDS: INSULIN SLIDING SCALE (NOVOLOG) 1 VIAL SQ SCH ×6 (06:11→22:20)
[2019-01-23] MEDS ORDERED: PT OWN MED DRAWER 7, Y5N ONE (08:41)
[2019-01-23] MEDS: PANTOPRAZOLE 40 MG TABLET (FP) PO SCH (10:11)
[2019-01-23] MEDS: PRENATAL VITAMINS W/ FOLIC ACID TABLET (FP) PO SCH (10:11)
[2019-01-23] MEDS: NADOLOL 20 MG TABLET (FP) PO SCH (10:11)
[2019-01-23] MEDS: LISINOPRIL 10 MG TABLET (FP) PO SCH (10:11)
[2019-01-23] MEDS: SELENIUM SULFIDE 2.25% 180 ML SHAMPOO TP SCH (10:12)
[2019-01-23] MEDS: LACTULOSE 20 GM/30 ML UDC (FOR ORAL USE ONLY) PO SCH ×4 (10:12→22:22)
[2019-01-23] MEDS: IBUPROFEN 400 MG TABLET (FP) PO PRN (18:11)
[2019-01-23] MEDS: LOPERAMIDE HCL 2 MG CAPSULE PO PRN (18:24)
[2019-01-23] MEDS: CYCLOBENZAPRINE HCL 10 MG TABLET (FP) PO PRN (22:24)
[2019-01-23] MEDS: INSULIN (LEVEMIR) 100 UNITS/ML UNITS SQ SCH (22:24)
[2019-01-23] MEDS: THIAMINE HCL 100 MG TABLET (FP) PO SCH (22:25)
[2019-01-24] MEDS: INSULIN SLIDING SCALE (NOVOLOG) 1 VIAL SQ SCH ×9 (00:25→16:38)
[2019-01-24] MEDS ORDERED: INSULIN (NOVOLOG) ASPART 100 UNITS/ML 10ML VIAL ONE ×2 (09:03→16:35)
[2019-01-24] MEDS: NADOLOL 20 MG TABLET (FP) PO SCH (09:31)
[2019-01-24] MEDS: LACTULOSE 20 GM/30 ML UDC (FOR ORAL USE ONLY) PO SCH ×4 (09:31→21:06)
[2019-01-24] MEDS: PANTOPRAZOLE 40 MG TABLET (FP) PO SCH (09:32)
[2019-01-24] MEDS: SELENIUM SULFIDE 2.25% 180 ML SHAMPOO TP SCH (09:32)
[2019-01-24] MEDS: PRENATAL VITAMINS W/ FOLIC ACID TABLET (FP) PO SCH (09:32)
[2019-01-24] MEDS: LISINOPRIL 10 MG TABLET (FP) PO SCH (09:32)
[2019-01-24] MEDS ORDERED: PT OWN MED DRAWER 7, Y5N ONE (10:41)
[2019-01-24] MEDS ORDERED: INSULIN (LEVEMIR) 100 UNITS/ML UNITS SQ ONE (16:35)
[2019-01-24] MEDS: IBUPROFEN 400 MG TABLET (FP) PO PRN (16:37)
[2019-01-24] MEDS: MELATONIN 5 MG TABLETS PO PRN (21:03)
[2019-01-24] MEDS: THIAMINE HCL 100 MG TABLET (FP) PO SCH (21:03)
[2019-01-24] MEDS: hydrOXYzine PAMOATE 25 MG CAPSULE (FP) PO PRN (21:05)
[2019-01-24] MEDS: INSULIN (LEVEMIR) 100 UNITS/ML UNITS SQ SCH (21:06)
[2019-01-25] MEDS: INSULIN SLIDING SCALE (NOVOLOG) 1 VIAL SQ SCH ×3 (06:26→17:09)
[2019-01-25] MEDS: hydrOXYzine PAMOATE 25 MG CAPSULE (FP) PO PRN (06:27)
[2019-01-25] MEDS ORDERED: INSULIN (NOVOLOG) ASPART 100 UNITS/ML 10ML VIAL ONE ×3 (06:27→16:45)
[2019-01-25] MEDS: LACTULOSE 20 GM/30 ML UDC (FOR ORAL USE ONLY) PO SCH ×4 (10:04→22:16)
[2019-01-25] MEDS: LISINOPRIL 10 MG TABLET (FP) PO SCH (10:04)
[2019-01-25] MEDS: PANTOPRAZOLE 40 MG TABLET (FP) PO SCH (10:04)
[2019-01-25] MEDS: PRENATAL VITAMINS W/ FOLIC ACID TABLET (FP) PO SCH (10:04)
[2019-01-25] MEDS: NADOLOL 20 MG TABLET (FP) PO SCH (10:04)
[2019-01-25] MEDS ORDERED: INSULIN (NOVOLOG) ASPART 100 UNITS/ML 10ML VIAL SQ ONE ×2 (18:30→19:53)
--- NOTE | 2019-01-25 18:33 | PN ---
S Progress Note Note: Vital Signs Temperature 97.7 F 01/25/19 07:03 Pulse Rate 80 01/25/19 09:15 Respiratory Rate 17 01/25/19 09:15 Blood Pressure 116/79 01/25/19 09:15 O2 Sat by Pulse Oximetry (%) Report received from Rohini FALLON re: patients BGM reads high. Patient found drinking juice in her room and request gingerale. 12 units novolog ordered increase PO fluids fluids (sugar free) repeat BGM in 30 min continue to monitor
--- NOTE | 2019-01-25 19:55 | PN ---
S Progress Note Note: Vital Signs Temperature 97.7 F 01/25/19 07:03 Pulse Rate 80 01/25/19 09:15 Respiratory Rate 17 01/25/19 09:15 Blood Pressure 116/79 01/25/19 09:15 O2 Sat by Pulse Oximetry (%) BGM at this time 514 asymptomatic 10 units of novolog ordered increase PO fluids continue to monitor
--- NOTE | 2019-01-25 21:45 | PN ---
S Progress Note Note: Vital Signs Temperature 97.7 F 01/25/19 07:03 Pulse Rate 80 01/25/19 09:15 Respiratory Rate 17 01/25/19 09:15 Blood Pressure 116/79 01/25/19 09:15 O2 Sat by Pulse Oximetry (%) BGM at this time 484 patient asymptomatic Patient is scheduled to receive her dose of levemir at 10pm increase PO fluids continue to monitor
[2019-01-25] MEDS: THIAMINE HCL 100 MG TABLET (FP) PO SCH (22:12)
[2019-01-25] MEDS: IBUPROFEN 400 MG TABLET (FP) PO PRN (22:14)
[2019-01-25] MEDS: INSULIN (LEVEMIR) 100 UNITS/ML UNITS SQ SCH (22:16)
[2019-01-26] MEDS: IBUPROFEN 400 MG TABLET (FP) PO PRN ×2 (07:30→15:09)
[2019-01-26] MEDS: INSULIN SLIDING SCALE (NOVOLOG) 1 VIAL SQ SCH ×4 (07:39→22:09)
--- NOTE | 2019-01-26 10:18 | PN ---
[facility] Progress Note Note: PATIENT SEEN FOR ELEVATED BLOOD SUGAR. PATIENT HAS HX OF ETOH DEPENDENCE AND UNCONTROLLED DM. PATIENT DENIES DRY MOUTH, LETHARGY, INCREASED URINATION AND SHAKES AT THIS TIME. Vital Signs Temperature 97.8 F 01/26/19 07:39 Pulse Rate 83 01/26/19 09:18 Respiratory Rate 18 01/26/19 07:39 Blood Pressure 138/83 01/26/19 09:18 O2 Sat by Pulse Oximetry (%) Laboratory Tests 01/17/19 01/17/19 01/17/19 09:59 16:14 16:38 WBC Corrected WBC (auto) RBC Hgb Hct MCV MCH MCHC RDW Plt Count MPV Absolute Neuts (auto) Neutrophils % Neutrophils % (Manual) Band Neutrophils % Lymphocytes % Lymphocytes % (Manual) Monocytes % (Manual) Eosinophils % (Manual) Basophils % (Manual) Myelocytes % (Man) Promyelocytes % (Man) Blast Cells % (Manual) Nucleated RBC % Metamyelocytes Manual Slide Review Hypochromia Platelet Estimate Platelet Comment Polychromasia Poikilocytosis Anisocytosis Microcytosis Macrocytosis Sodium Potassium Chloride Carbon Dioxide Anion Gap BUN Creatinine Creat Clearance w eGFR POC Glucometer 539 561 Random Glucose Calcium Total Bilirubin AST ALT Alkaline Phosphatase Ammonia Total Protein Albumin Urine Color Straw Urine Appearance Clear Urine pH 7.0 Ur Specific [place] 1.021 Urine Protein 2+ H Urine Glucose (UA) 3+ H Urine Ketones Trace H Urine Blood 2+ H Urine Nitrite Negative Urine Bilirubin Negative Urine Urobilinogen Negative Ur Leukocyte Esterase Negative Urine WBC (Auto) 1 Urine RBC (Auto) 17 Ur Epithelial Cells Rare Urine Mucus RPR Titer 01/17/19 01/18/19 01/18/19 21:44 05:57 07:50 WBC Cancelled Corrected WBC (auto) Cancelled RBC Cancelled Hgb Cancelled Hct Cancelled MCV Cancelled MCH Cancelled MCHC Cancelled RDW Cancelled Plt Count Cancelled MPV Cancelled Absolute Neuts (auto) Neutrophils % Neutrophils % (Manual) Band Neutrophils % Lymphocytes % Lymphocytes % (Manual) Monocytes % (Manual) Eosinophils % (Manual) Basophils % (Manual) Myelocytes % (Man) Promyelocytes % (Man) Blast Cells % (Manual) Nucleated RBC % Metamyelocytes Manual Slide Review Cancelled Hypochromia Platelet Estimate Platelet Comment Cancelled Polychromasia Poikilocytosis Anisocytosis Microcytosis Macrocytosis Sodium Potassium Chloride Carbon Dioxide Anion Gap BUN Creatinine Creat Clearance w eGFR POC Glucometer 457 213 Random Glucose Calcium Total Bilirubin AST ALT Alkaline Phosphatase Ammonia Total Protein Albumin Urine Color Urine Appearance Urine pH Ur Specific [place] Urine Protein Urine Glucose (UA) Urine Ketones Urine Blood Urine Nitrite Urine Bilirubin Urine Urobilinogen Ur Leukocyte Esterase Urine WBC (Auto) Urine RBC (Auto) Ur Epithelial Cells Urine Mucus RPR Titer 01/18/19 01/18/19 01/18/19 07:50 07:50 07:50 WBC Corrected WBC (auto) RBC Hgb Hct MCV MCH MCHC RDW Plt Count MPV Absolute Neuts (auto) Neutrophils % Neutrophils % (Manual) Band Neutrophils % Lymphocytes % Lymphocytes % (Manual) Monocytes % (Manual) Eosinophils % (Manual) Basophils % (Manual) Myelocytes % (Man) Promyelocytes % (Man) Blast Cells % (Manual) Nucleated RBC % Metamyelocytes Manual Slide Review Hypochromia Platelet Estimate Platelet Comment Polychromasia Poikilocytosis Anisocytosis Microcytosis Macrocytosis Sodium 136 Potassium 3.7 Chloride 107 Carbon Dioxide 22 Anion Gap 7 L BUN 11 Creatinine 0.5 L Creat Clearance w eGFR > 60 POC Glucometer Random Glucose 211 H Calcium 7.8 L Total Bilirubin 0.2 AST 33 ALT 42 Alkaline Phosphatase 174 H Ammonia 120.10 H Total Protein 6.0 L Albumin 1.8 L Urine Color Urine Appearance Urine pH Ur Specific [place] Urine Protein Urine Glucose (UA) Urine Ketones Urine Blood Urine Nitrite Urine Bilirubin Urine Urobilinogen Ur Leukocyte Esterase Urine WBC (Auto) Urine RBC (Auto) Ur Epithelial Cells Urine Mucus RPR Titer Nonreactive 01/18/19 01/18/19 01/18/19 10:47 16:33 21:27 WBC Corrected WBC (auto) RBC Hgb Hct MCV MCH MCHC RDW Plt Count MPV Absolute Neuts (auto) Neutrophils % Neutrophils % (Manual) Band Neutrophils % Lymphocytes % Lymphocytes % (Manual) Monocytes % (Manual) Eosinophils % (Manual) Basophils % (Manual) Myelocytes % (Man) Promyelocytes % (Man) Blast Cells % (Manual) Nucleated RBC % Metamyelocytes Manual Slide Review Hypochromia Platelet Estimate Platelet Comment Polychromasia Poikilocytosis Anisocytosis Microcytosis Macrocytosis Sodium Potassium Chloride Carbon Dioxide Anion Gap BUN Creatinine Creat Clearance w eGFR POC Glucometer [phone] Random Glucose Calcium Total Bilirubin AST ALT Alkaline Phosphatase Ammonia Total Protein Albumin Urine Color Urine Appearance Urine pH Ur Specific [place] Urine Protein Urine Glucose (UA) Urine Ketones Urine Blood Urine Nitrite Urine Bilirubin Urine Urobilinogen Ur Leukocyte Esterase Urine WBC (Auto) Urine RBC (Auto) Ur Epithelial Cells Urine Mucus RPR Titer 01/19/19 01/19/19 01/19/19 05:53 10:40 16:21 WBC Corrected WBC (auto) RBC Hgb Hct MCV MCH MCHC RDW Plt Count MPV Absolute Neuts (auto) Neutrophils % Neutrophils % (Manual) Band Neutrophils % Lymphocytes % Lymphocytes % (Manual) Monocytes % (Manual) Eosinophils % (Manual) Basophils % (Manual) Myelocytes % (Man) Promyelocytes % (Man) Blast Cells % (Manual) Nucleated RBC % Metamyelocytes Manual Slide Review Hypochromia Platelet Estimate Platelet Comment Polychromasia Poikilocytosis Anisocytosis Microcytosis Macrocytosis Sodium Potassium Chloride Carbon Dioxide Anion Gap BUN Creatinine Creat Clearance w eGFR POC Glucometer [phone] Random Glucose Calcium Total Bilirubin AST ALT Alkaline Phosphatase Ammonia Total Protein Albumin Urine Color Urine Appearance Urine pH Ur Specific [place] Urine Protein Urine Glucose (UA) Urine Ketones Urine Blood Urine Nitrite Urine Bilirubin Urine Urobilinogen Ur Leukocyte Esterase Urine WBC (Auto) Urine RBC (Auto) Ur Epithelial Cells Urine Mucus RPR Titer 01/19/19 01/20/19 01/20/19 22:25 06:22 08:00 WBC 3.4 L Corrected WBC (auto) RBC 4.34 Hgb 11.8 Hct 35.7 D MCV 82.3 MCH 27.2 MCHC 33.0 RDW 21.1 H Plt Count 171 MPV 9.2 D Absolute Neuts (auto) 1.4 L Neutrophils % No Result Required. Neutrophils % (Manual) 45.3 Band Neutrophils % 0.0 Lymphocytes % No Result Required. Lymphocytes % (Manual) 30.5 D Monocytes % (Manual) 14 H Eosinophils % (Manual) 0.0 Basophils % (Manual) 0.0 Myelocytes % (Man) 0 Promyelocytes % (Man) 0 Blast Cells % (Manual) 0 Nucleated RBC % 1 H Metamyelocytes 1 D Manual Slide Review Hypochromia 1+ Platelet Estimate Decreased Platelet Comment Polychromasia 1+ Poikilocytosis 0 Anisocytosis 1+ Microcytosis 1+ Macrocytosis 0 Sodium Potassium Chloride Carbon Dioxide Anion Gap BUN Creatinine Creat Clearance w eGFR POC Glucometer 400 345 Random Glucose Calcium Total Bilirubin AST ALT Alkaline Phosphatase Ammonia Total Protein Albumin Urine Color Urine Appearance Urine pH Ur Specific [place] Urine Protein Urine Glucose (UA) Urine Ketones Urine Blood Urine Nitrite Urine Bilirubin Urine Urobilinogen Ur Leukocyte Esterase Urine WBC (Auto) Urine RBC (Auto) Ur Epithelial Cells Urine Mucus RPR Titer 01/20/19 01/20/19 01/20/19 08:00 08:22 11:01 WBC Corrected WBC (auto) RBC Hgb Hct MCV MCH MCHC RDW Plt Count MPV Absolute Neuts (auto) Neutrophils % Neutrophils % (Manual) Band Neutrophils % Lymphocytes % Lymphocytes % (Manual) Monocytes % (Manual) Eosinophils % (Manual) Basophils % (Manual) Myelocytes % (Man) Promyelocytes % (Man) Blast Cells % (Manual) Nucleated RBC % Metamyelocytes Manual Slide Review Hypochromia Platelet Estimate Platelet Comment Polychromasia Poikilocytosis Anisocytosis Microcytosis Macrocytosis Sodium 136 Potassium 4.3 Chloride 107 Carbon Dioxide 19 L Anion Gap 9 BUN 10 Creatinine 0.5 L Creat Clearance w eGFR > 60 POC Glucometer 390 Random Glucose 358 H* Calcium 8.4 L Total Bilirubin 0.2 AST 40 H ALT 50 Alkaline Phosphatase 193 H Ammonia Total Protein 6.3 L Albumin 1.8 L Urine Color Urine Appearance Urine pH Ur Specific [place] Urine Protein Urine Glucose (UA) Urine Ketones Urine Blood Urine Nitrite Urine Bilirubin Urine Urobilinogen Ur Leukocyte Esterase Urine WBC (Auto) Urine RBC (Auto) Ur Epithelial Cells Urine Mucus RPR Titer Nonreactive 01/20/19 01/20/19 01/21/19 16:31 21:55 06:29 WBC Corrected WBC (auto) RBC Hgb Hct MCV MCH MCHC RDW Plt Count MPV Absolute Neuts (auto) Neutrophils % Neutrophils % (Manual) Band Neutrophils % Lymphocytes % Lymphocytes % (Manual) Monocytes % (Manual) Eosinophils % (Manual) Basophils % (Manual) Myelocytes % (Man) Promyelocytes % (Man) Blast Cells % (Manual) Nucleated RBC % Metamyelocytes Manual Slide Review Hypochromia Platelet Estimate Platelet Comment Polychromasia Poikilocytosis Anisocytosis Microcytosis Macrocytosis Sodium Potassium Chloride Carbon Dioxide Anion Gap BUN Creatinine Creat Clearance w eGFR POC Glucometer [phone] Random Glucose Calcium Total Bilirubin AST ALT Alkaline Phosphatase Ammonia Total Protein Albumin Urine Color Urine Appearance Urine pH Ur Specific [place] Urine Protein Urine Glucose (UA) Urine Ketones Urine Blood Urine Nitrite Urine Bilirubin Urine Urobilinogen Ur Leukocyte Esterase Urine WBC (Auto) Urine RBC (Auto) Ur Epithelial Cells Urine Mucus RPR Titer 01/21/19 01/21/19 01/21/19 11:25 17:18 21:30 WBC Corrected WBC (auto) RBC Hgb Hct MCV MCH MCHC RDW Plt Count MPV Absolute Neuts (auto) Neutrophils % Neutrophils % (Manual) Band Neutrophils % Lymphocytes % Lymphocytes % (Manual) Monocytes % (Manual) Eosinophils % (Manual) Basophils % (Manual) Myelocytes % (Man) Promyelocytes % (Man) Blast Cells % (Manual) Nucleated RBC % Metamyelocytes Manual Slide Review Hypochromia Platelet Estimate Platelet Comment Polychromasia Poikilocytosis Anisocytosis Microcytosis Macrocytosis Sodium Potassium Chloride Carbon Dioxide Anion Gap BUN Creatinine Creat Clearance w eGFR POC Glucometer 430 361 > 600 Random Glucose Calcium Total Bilirubin AST ALT Alkaline Phosphatase Ammonia Total Protein Albumin Urine Color Urine Appearance Urine pH Ur Specific [place] Urine Protein Urine Glucose (UA) Urine Ketones Urine Blood Urine Nitrite Urine Bilirubin Urine Urobilinogen Ur Leukocyte Esterase Urine WBC (Auto) Urine RBC (Auto) Ur Epithelial Cells Urine Mucus RPR Titer 01/22/19 01/22/19 01/22/19 01:00 06:09 08:30 WBC Corrected WBC (auto) RBC Hgb Hct MCV MCH MCHC RDW Plt Count MPV Absolute Neuts (auto) Neutrophils % Neutrophils % (Manual) Band Neutrophils % Lymphocytes % Lymphocytes % (Manual) Monocytes % (Manual) Eosinophils % (Manual) Basophils % (Manual) Myelocytes % (Man) Promyelocytes % (Man) Blast Cells % (Manual) Nucleated RBC % Metamyelocytes Manual Slide Review Hypochromia Platelet Estimate Platelet Comment Polychromasia Poikilocytosis Anisocytosis Microcytosis Macrocytosis Sodium Potassium Chloride Carbon Dioxide Anion Gap BUN Creatinine Creat Clearance w eGFR POC Glucometer > 600 505 Random Glucose Calcium Total Bilirubin AST ALT Alkaline Phosphatase Ammonia Total Protein Albumin Urine Color Straw Urine Appearance Clear Urine pH 6.0 Ur Specific [place] 1.027 Urine Protein 2+ H Urine Glucose (UA) 3+ H Urine Ketones Negative Urine Blood 1+ H Urine Nitrite Negative Urine Bilirubin Negative Urine Urobilinogen Negative Ur Leukocyte Esterase Negative Urine WBC (Auto) <1 Urine RBC (Auto) 3 Ur Epithelial Cells Rare Urine Mucus Rare RPR Titer 01/22/19 01/22/19 01/22/19 11:54 16:58 21:25 WBC Corrected WBC (auto) RBC Hgb Hct MCV MCH MCHC RDW Plt Count MPV Absolute Neuts (auto) Neutrophils % Neutrophils % (Manual) Band Neutrophils % Lymphocytes % Lymphocytes % (Manual) Monocytes % (Manual) Eosinophils % (Manual) Basophils % (Manual) Myelocytes % (Man) Promyelocytes % (Man) Blast Cells % (Manual) Nucleated RBC % Metamyelocytes Manual Slide Review Hypochromia Platelet Estimate Platelet Comment Polychromasia Poikilocytosis Anisocytosis Microcytosis Macrocytosis Sodium Potassium Chloride Carbon Dioxide Anion Gap BUN Creatinine Creat Clearance w eGFR POC Glucometer 494 > 600 > 600 Random Glucose Calcium Total Bilirubin AST ALT Alkaline Phosphatase Ammonia Total Protein Albumin Urine Color Urine Appearance Urine pH Ur Specific [place] Urine Protein Urine Glucose (UA) Urine Ketones Urine Blood Urine Nitrite Urine Bilirubin Urine Urobilinogen Ur Leukocyte Esterase Urine WBC (Auto) Urine RBC (Auto) Ur Epithelial Cells Urine Mucus RPR Titer 01/23/19 01/23/19 01/23/19 06:08 12:02 13:09 WBC Corrected WBC (auto) RBC Hgb Hct MCV MCH MCHC RDW Plt Count MPV Absolute Neuts (auto) Neutrophils % Neutrophils % (Manual) Band Neutrophils % Lymphocytes % Lymphocytes % (Manual) Monocytes % (Manual) Eosinophils % (Manual) Basophils % (Manual) Myelocytes % (Man) Promyelocytes % (Man) Blast Cells % (Manual) Nucleated RBC % Metamyelocytes Manual Slide Review Hypochromia Platelet Estimate Platelet Comment Polychromasia Poikilocytosis Anisocytosis Microcytosis Macrocytosis Sodium Potassium Chloride Carbon Dioxide Anion Gap BUN Creatinine Creat Clearance w eGFR POC Glucometer > 600 > 600 > 600 Random Glucose Calcium Total Bilirubin AST ALT Alkaline Phosphatase Ammonia Total Protein Albumin Urine Color Urine Appearance Urine pH Ur Specific [place] Urine Protein Urine Glucose (UA) Urine Ketones Urine Blood Urine Nitrite Urine Bilirubin Urine Urobilinogen Ur Leukocyte Esterase Urine WBC (Auto) Urine RBC (Auto) Ur Epithelial Cells Urine Mucus RPR Titer 01/23/19 01/23/19 01/23/19 16:11 18:07 20:15 WBC Corrected WBC (auto) RBC Hgb Hct MCV MCH MCHC RDW Plt Count MPV Absolute Neuts (auto) Neutrophils % Neutrophils % (Manual) Band Neutrophils % Lymphocytes % Lymphocytes % (Manual) Monocytes % (Manual) Eosinophils % (Manual) Basophils % (Manual) Myelocytes % (Man) Promyelocytes % (Man) Blast Cells % (Manual) Nucleated RBC % Metamyelocytes Manual Slide Review Hypochromia Platelet Estimate Platelet Comment Polychromasia Poikilocytosis Anisocytosis Microcytosis Macrocytosis Sodium Potassium Chloride Carbon Dioxide Anion Gap BUN Creatinine Creat Clearance w eGFR POC Glucometer [phone] Random Glucose Calcium Total Bilirubin AST ALT Alkaline Phosphatase Ammonia Total Protein Albumin Urine Color Urine Appearance Urine pH Ur Specific [place] Urine Protein Urine Glucose (UA) Urine Ketones Urine Blood Urine Nitrite Urine Bilirubin Urine Urobilinogen Ur Leukocyte Esterase Urine WBC (Auto) Urine RBC (Auto) Ur Epithelial Cells Urine Mucus RPR Titer 01/23/19 01/24/19 01/24/19 22:19 00:32 06:25 WBC Corrected WBC (auto) RBC Hgb Hct MCV MCH MCHC RDW Plt Count MPV Absolute Neuts (auto) Neutrophils % Neutrophils % (Manual) Band Neutrophils % Lymphocytes % Lymphocytes % (Manual) Monocytes % (Manual) Eosinophils % (Manual) Basophils % (Manual) Myelocytes % (Man) Promyelocytes % (Man) Blast Cells % (Manual) Nucleated RBC % Metamyelocytes Manual Slide Review Hypochromia Platelet Estimate Platelet Comment Polychromasia Poikilocytosis Anisocytosis Microcytosis Macrocytosis Sodium Potassium Chloride Carbon Dioxide Anion Gap BUN Creatinine Creat Clearance w eGFR POC Glucometer 506 492 275 Random Glucose Calcium Total Bilirubin AST ALT Alkaline Phosphatase Ammonia Total Protein Albumin Urine Color Urine Appearance Urine pH Ur Specific [place] Urine Protein Urine Glucose (UA) Urine Ketones Urine Blood Urine Nitrite Urine Bilirubin Urine Urobilinogen Ur Leukocyte Esterase Urine WBC (Auto) Urine RBC (Auto) Ur Epithelial Cells Urine Mucus RPR Titer 01/24/19 01/24/19 01/24/19 09:00 11:28 16:33 WBC Corrected WBC (auto) RBC Hgb Hct MCV MCH MCHC RDW Plt Count MPV Absolute Neuts (auto) Neutrophils % Neutrophils % (Manual) Band Neutrophils % Lymphocytes % Lymphocytes % (Manual) Monocytes % (Manual) Eosinophils % (Manual) Basophils % (Manual) Myelocytes % (Man) Promyelocytes % (Man) Blast Cells % (Manual) Nucleated RBC % Metamyelocytes Manual Slide Review Hypochromia Platelet Estimate Platelet Comment Polychromasia Poikilocytosis Anisocytosis Microcytosis Macrocytosis Sodium Potassium Chloride Carbon Dioxide Anion Gap BUN Creatinine Creat Clearance w eGFR POC Glucometer 267 320 434 Random Glucose Calcium Total Bilirubin AST ALT Alkaline Phosphatase Ammonia Total Protein Albumin Urine Color Urine Appearance Urine pH Ur Specific [place] Urine Protein Urine Glucose (UA) Urine Ketones Urine Blood Urine Nitrite Urine Bilirubin Urine Urobilinogen Ur Leukocyte Esterase Urine WBC (Auto) Urine RBC (Auto) Ur Epithelial Cells Urine Mucus RPR Titer 01/24/19 01/25/19 01/25/19 20:57 06:24 12:09 WBC Corrected WBC (auto) RBC Hgb Hct MCV MCH MCHC RDW Plt Count MPV Absolute Neuts (auto) Neutrophils % Neutrophils % (Manual) Band Neutrophils % Lymphocytes % Lymphocytes % (Manual) Monocytes % (Manual) Eosinophils % (Manual) Basophils % (Manual) Myelocytes % (Man) Promyelocytes % (Man) Blast Cells % (Manual) Nucleated RBC % Metamyelocytes Manual Slide Review Hypochromia Platelet Estimate Platelet Comment Polychromasia Poikilocytosis Anisocytosis Microcytosis Macrocytosis Sodium Potassium Chloride Carbon Dioxide Anion Gap BUN Creatinine Creat Clearance w eGFR POC Glucometer 494 327 512 Random Glucose Calcium Total Bilirubin AST ALT Alkaline Phosphatase Ammonia Total Protein Albumin Urine Color Urine Appearance Urine pH Ur Specific [place] Urine Protein Urine Glucose (UA) Urine Ketones Urine Blood Urine Nitrite Urine Bilirubin Urine Urobilinogen Ur Leukocyte Esterase Urine WBC (Auto) Urine RBC (Auto) Ur Epithelial Cells Urine Mucus RPR Titer 01/25/19 01/25/19 01/25/19 16:38 18:28 19:16 WBC Corrected WBC (auto) RBC Hgb Hct MCV MCH MCHC RDW Plt Count MPV Absolute Neuts (auto) Neutrophils % Neutrophils % (Manual) Band Neutrophils % Lymphocytes % Lymphocytes % (Manual) Monocytes % (Manual) Eosinophils % (Manual) Basophils % (Manual) Myelocytes % (Man) Promyelocytes % (Man) Blast Cells % (Manual) Nucleated RBC % Metamyelocytes Manual Slide Review Hypochromia Platelet Estimate Platelet Comment Polychromasia Poikilocytosis Anisocytosis Microcytosis Macrocytosis Sodium Potassium Chloride Carbon Dioxide Anion Gap BUN Creatinine Creat Clearance w eGFR POC Glucometer > 600 > 600 > 600 Random Glucose Calcium Total Bilirubin AST ALT Alkaline Phosphatase Ammonia Total Protein Albumin Urine Color Urine Appearance Urine pH Ur Specific [place] Urine Protein Urine Glucose (UA) Urine Ketones Urine Blood Urine Nitrite Urine Bilirubin Urine Urobilinogen Ur Leukocyte Esterase Urine WBC (Auto) Urine RBC (Auto) Ur Epithelial Cells Urine Mucus RPR Titer 01/25/19 01/25/19 01/26/19 19:51 20:56 07:28 WBC Corrected WBC (auto) RBC Hgb Hct MCV MCH MCHC RDW Plt Count MPV Absolute Neuts (auto) Neutrophils % Neutrophils % (Manual) Band Neutrophils % Lymphocytes % Lymphocytes % (Manual) Monocytes % (Manual) Eosinophils % (Manual) Basophils % (Manual) Myelocytes % (Man) Promyelocytes % (Man) Blast Cells % (Manual) Nucleated RBC % Metamyelocytes Manual Slide Review Hypochromia Platelet Estimate Platelet Comment Polychromasia Poikilocytosis Anisocytosis Microcytosis Macrocytosis Sodium Potassium Chloride Carbon Dioxide Anion Gap BUN Creatinine Creat Clearance w eGFR POC Glucometer 514 484 320 Random Glucose Calcium Total Bilirubin AST ALT Alkaline Phosphatase Ammonia Total Protein Albumin Urine Color Urine Appearance Urine pH Ur Specific [place] Urine Protein Urine Glucose (UA) Urine Ketones Urine Blood Urine Nitrite Urine Bilirubin Urine Urobilinogen Ur Leukocyte Esterase Urine WBC (Auto) Urine RBC (Auto) Ur Epithelial Cells Urine Mucus RPR Titer PE: ALERT AND ORIENTED X 3 SKIN WARM AND DRY CAR S1S2 RESP CTA BL EXT FULL ROM, AMB AD KAM A/P: DM WITH HYPERGLYCEMIA BLOOD SUGAR 320 THIS MORNING WILL CHANGE BGM TO AC/HS CONTINUE SLIDING SCALE ENCOURAGE ORAL FLUIDS DIET MODIFICATIONS REVIEWED CONTINUE TO MONITOR CLINICALLY
[2019-01-26] MEDS: NADOLOL 20 MG TABLET (FP) PO SCH (10:28)
[2019-01-26] MEDS: PRENATAL VITAMINS W/ FOLIC ACID TABLET (FP) PO SCH (10:28)
[2019-01-26] MEDS: LACTULOSE 20 GM/30 ML UDC (FOR ORAL USE ONLY) PO SCH ×4 (10:28→22:09)
[2019-01-26] MEDS: PANTOPRAZOLE 40 MG TABLET (FP) PO SCH (10:28)
[2019-01-26] MEDS: LISINOPRIL 10 MG TABLET (FP) PO SCH (10:28)
[2019-01-26] MEDS ORDERED: INSULIN (NOVOLOG) ASPART 100 UNITS/ML 10ML VIAL ONE ×2 (12:12→15:30)
[2019-01-26] MEDS ORDERED: INSULIN (NOVOLOG) ASPART 100 UNITS/ML 10ML VIAL SQ ONE ×2 (14:00→15:45)
[2019-01-26 15:44] LABS: URINE APPEARANCE CLEAR; URINE BILIRUBIN NEGATIVE (<2.0 mg/dL); URINE COLOR STRAW; URINE GLUCOSE (UA) 3+ (NEGATIVE); URINE KETONE NEGATIVE (NEGATIVE); URINE LEUK ESTERASE NEGATIVE (NEGATIVE); URINE NITRITE NEGATIVE (NEGATIVE); URINE PROTEIN 1+ (NEGATIVE); URINE UROBILINOGEN NEGATIVE mg/dL (0.2-1.0)
[2019-01-26 15:50] LABS: EPI CELLS RARE /HPF (FEW)
[2019-01-26 15:58] LABS: YEAST RARE
--- NOTE | 2019-01-26 15:59 | PN ---
[facility] Progress Note Note: PATIENT SEEN FOR "HI" BLOOD SUGARS. PER NURSING STAFF, PATIENT WAS WITNESSED DRINKING JUICE FROM DINING ROOM DESPITE BEING TOLD NOT TO AND TO DRINK WATER INSTEAD. PATIENT GIVEN 12 UNITS OF NOVOLOG AT APPROXIMATELY 12:30 PM. BLOOD SUGAR REPEATED 1/2 HOUR LATER AND REMAINED HI. 6 ADDITIONAL UNITS GIVEN. PATIENT STATES SHE HAS MILD DIZZINESS. CURRENTLY ON LACTULOSE 20G QID FOR ELEVATED AMMONIA LEVEL. LAST LEVEL 01/18/19. WILL REPEAT LEVEL TODAY. UPON REVIEW OF PREVIOUS ADMISSION, PATIENT WAS ORDERED LEVEMIR 10-12 UNITS EVERY MORNING IN ADDITION TO 45 UNITS HS. WILL START LEVEMIR 10 UNITS QAM STARTING TOMORROW. Vital Signs Temperature 97.9 F 01/26/19 13:50 Pulse Rate 82 01/26/19 13:50 Respiratory Rate 20 01/26/19 13:50 Blood Pressure 146/97 01/26/19 13:50 O2 Sat by Pulse Oximetry (%) Laboratory Tests 01/17/19 01/17/19 01/17/19 09:59 16:14 16:38 WBC Corrected WBC (auto) RBC Hgb Hct MCV MCH MCHC RDW Plt Count MPV Absolute Neuts (auto) Neutrophils % Neutrophils % (Manual) Band Neutrophils % Lymphocytes % Lymphocytes % (Manual) Monocytes % (Manual) Eosinophils % (Manual) Basophils % (Manual) Myelocytes % (Man) Promyelocytes % (Man) Blast Cells % (Manual) Nucleated RBC % Metamyelocytes Manual Slide Review Hypochromia Platelet Estimate Platelet Comment Polychromasia Poikilocytosis Anisocytosis Microcytosis Macrocytosis Sodium Potassium Chloride Carbon Dioxide Anion Gap BUN Creatinine Creat Clearance w eGFR POC Glucometer 539 561 Random Glucose Calcium Total Bilirubin AST ALT Alkaline Phosphatase Ammonia Total Protein Albumin Urine Color Straw Urine Appearance Clear Urine pH 7.0 Ur Specific [place] 1.021 Urine Protein 2+ H Urine Glucose (UA) 3+ H Urine Ketones Trace H Urine Blood 2+ H Urine Nitrite Negative Urine Bilirubin Negative Urine Urobilinogen Negative Ur Leukocyte Esterase Negative Urine WBC (Auto) 1 Urine RBC (Auto) 17 Ur Epithelial Cells Rare Urine Mucus Urine Yeast RPR Titer 01/17/19 01/18/19 01/18/19 21:44 05:57 07:50 WBC Cancelled Corrected WBC (auto) Cancelled RBC Cancelled Hgb Cancelled Hct Cancelled MCV Cancelled MCH Cancelled MCHC Cancelled RDW Cancelled Plt Count Cancelled MPV Cancelled Absolute Neuts (auto) Neutrophils % Neutrophils % (Manual) Band Neutrophils % Lymphocytes % Lymphocytes % (Manual) Monocytes % (Manual) Eosinophils % (Manual) Basophils % (Manual) Myelocytes % (Man) Promyelocytes % (Man) Blast Cells % (Manual) Nucleated RBC % Metamyelocytes Manual Slide Review Cancelled Hypochromia Platelet Estimate Platelet Comment Cancelled Polychromasia Poikilocytosis Anisocytosis Microcytosis Macrocytosis Sodium Potassium Chloride Carbon Dioxide Anion Gap BUN Creatinine Creat Clearance w eGFR POC Glucometer 457 213 Random Glucose Calcium Total Bilirubin AST ALT Alkaline Phosphatase Ammonia Total Protein Albumin Urine Color Urine Appearance Urine pH Ur Specific [place] Urine Protein Urine Glucose (UA) Urine Ketones Urine Blood Urine Nitrite Urine Bilirubin Urine Urobilinogen Ur Leukocyte Esterase Urine WBC (Auto) Urine RBC (Auto) Ur Epithelial Cells Urine Mucus Urine Yeast RPR Titer 01/18/19 01/18/19 01/18/19 07:50 07:50 07:50 WBC Corrected WBC (auto) RBC Hgb Hct MCV MCH MCHC RDW Plt Count MPV Absolute Neuts (auto) Neutrophils % Neutrophils % (Manual) Band Neutrophils % Lymphocytes % Lymphocytes % (Manual) Monocytes % (Manual) Eosinophils % (Manual) Basophils % (Manual) Myelocytes % (Man) Promyelocytes % (Man) Blast Cells % (Manual) Nucleated RBC % Metamyelocytes Manual Slide Review Hypochromia Platelet Estimate Platelet Comment Polychromasia Poikilocytosis Anisocytosis Microcytosis Macrocytosis Sodium 136 Potassium 3.7 Chloride 107 Carbon Dioxide 22 Anion Gap 7 L BUN 11 Creatinine 0.5 L Creat Clearance w eGFR > 60 POC Glucometer Random Glucose 211 H Calcium 7.8 L Total Bilirubin 0.2 AST 33 ALT 42 Alkaline Phosphatase 174 H Ammonia 120.10 H Total Protein 6.0 L Albumin 1.8 L Urine Color Urine Appearance Urine pH Ur Specific [place] Urine Protein Urine Glucose (UA) Urine Ketones Urine Blood Urine Nitrite Urine Bilirubin Urine Urobilinogen Ur Leukocyte Esterase Urine WBC (Auto) Urine RBC (Auto) Ur Epithelial Cells Urine Mucus Urine Yeast RPR Titer Nonreactive 01/18/19 01/18/19 01/18/19 10:47 16:33 21:27 WBC Corrected WBC (auto) RBC Hgb Hct MCV MCH MCHC RDW Plt Count MPV Absolute Neuts (auto) Neutrophils % Neutrophils % (Manual) Band Neutrophils % Lymphocytes % Lymphocytes % (Manual) Monocytes % (Manual) Eosinophils % (Manual) Basophils % (Manual) Myelocytes % (Man) Promyelocytes % (Man) Blast Cells % (Manual) Nucleated RBC % Metamyelocytes Manual Slide Review Hypochromia Platelet Estimate Platelet Comment Polychromasia Poikilocytosis Anisocytosis Microcytosis Macrocytosis Sodium Potassium Chloride Carbon Dioxide Anion Gap BUN Creatinine Creat Clearance w eGFR POC Glucometer 147 447 468 Random Glucose Calcium Total Bilirubin AST ALT Alkaline Phosphatase Ammonia Total Protein Albumin Urine Color Urine Appearance Urine pH Ur Specific [place] Urine Protein Urine Glucose (UA) Urine Ketones Urine Blood Urine Nitrite Urine Bilirubin Urine Urobilinogen Ur Leukocyte Esterase Urine WBC (Auto) Urine RBC (Auto) Ur Epithelial Cells Urine Mucus Urine Yeast RPR Titer 01/19/19 01/19/19 01/19/19 05:53 10:40 16:21 WBC Corrected WBC (auto) RBC Hgb Hct MCV MCH MCHC RDW Plt Count MPV Absolute Neuts (auto) Neutrophils % Neutrophils % (Manual) Band Neutrophils % Lymphocytes % Lymphocytes % (Manual) Monocytes % (Manual) Eosinophils % (Manual) Basophils % (Manual) Myelocytes % (Man) Promyelocytes % (Man) Blast Cells % (Manual) Nucleated RBC % Metamyelocytes Manual Slide Review Hypochromia Platelet Estimate Platelet Comment Polychromasia Poikilocytosis Anisocytosis Microcytosis Macrocytosis Sodium Potassium Chloride Carbon Dioxide Anion Gap BUN Creatinine Creat Clearance w eGFR POC Glucometer 418 368 433 Random Glucose Calcium Total Bilirubin AST ALT Alkaline Phosphatase Ammonia Total Protein Albumin Urine Color Urine Appearance Urine pH Ur Specific [place] Urine Protein Urine Glucose (UA) Urine Ketones Urine Blood Urine Nitrite Urine Bilirubin Urine Urobilinogen Ur Leukocyte Esterase Urine WBC (Auto) Urine RBC (Auto) Ur Epithelial Cells Urine Mucus Urine Yeast RPR Titer 01/19/19 01/20/19 01/20/19 22:25 06:22 08:00 WBC 3.4 L Corrected WBC (auto) RBC 4.34 Hgb 11.8 Hct 35.7 D MCV 82.3 MCH 27.2 MCHC 33.0 RDW 21.1 H Plt Count 171 MPV 9.2 D Absolute Neuts (auto) 1.4 L Neutrophils % No Result Required. Neutrophils % (Manual) 45.3 Band Neutrophils % 0.0 Lymphocytes % No Result Required. Lymphocytes % (Manual) 30.5 D Monocytes % (Manual) 14 H Eosinophils % (Manual) 0.0 Basophils % (Manual) 0.0 Myelocytes % (Man) 0 Promyelocytes % (Man) 0 Blast Cells % (Manual) 0 Nucleated RBC % 1 H Metamyelocytes 1 D Manual Slide Review Hypochromia 1+ Platelet Estimate Decreased Platelet Comment Polychromasia 1+ Poikilocytosis 0 Anisocytosis 1+ Microcytosis 1+ Macrocytosis 0 Sodium Potassium Chloride Carbon Dioxide Anion Gap BUN Creatinine Creat Clearance w eGFR POC Glucometer 400 345 Random Glucose Calcium Total Bilirubin AST ALT Alkaline Phosphatase Ammonia Total Protein Albumin Urine Color Urine Appearance Urine pH Ur Specific [place] Urine Protein Urine Glucose (UA) Urine Ketones Urine Blood Urine Nitrite Urine Bilirubin Urine Urobilinogen Ur Leukocyte Esterase Urine WBC (Auto) Urine RBC (Auto) Ur Epithelial Cells Urine Mucus Urine Yeast RPR Titer 01/20/19 01/20/19 01/20/19 08:00 08:22 11:01 WBC Corrected WBC (auto) RBC Hgb Hct MCV MCH MCHC RDW Plt Count MPV Absolute Neuts (auto) Neutrophils % Neutrophils % (Manual) Band Neutrophils % Lymphocytes % Lymphocytes % (Manual) Monocytes % (Manual) Eosinophils % (Manual) Basophils % (Manual) Myelocytes % (Man) Promyelocytes % (Man) Blast Cells % (Manual) Nucleated RBC % Metamyelocytes Manual Slide Review Hypochromia Platelet Estimate Platelet Comment Polychromasia Poikilocytosis Anisocytosis Microcytosis Macrocytosis Sodium 136 Potassium 4.3 Chloride 107 Carbon Dioxide 19 L Anion Gap 9 BUN 10 Creatinine 0.5 L Creat Clearance w eGFR > 60 POC Glucometer 390 Random Glucose 358 H* Calcium 8.4 L Total Bilirubin 0.2 AST 40 H ALT 50 Alkaline Phosphatase 193 H Ammonia Total Protein 6.3 L Albumin 1.8 L Urine Color Urine Appearance Urine pH Ur Specific [place] Urine Protein Urine Glucose (UA) Urine Ketones Urine Blood Urine Nitrite Urine Bilirubin Urine Urobilinogen Ur Leukocyte Esterase Urine WBC (Auto) Urine RBC (Auto) Ur Epithelial Cells Urine Mucus Urine Yeast RPR Titer Nonreactive 01/20/19 01/20/19 01/21/19 16:31 21:55 06:29 WBC Corrected WBC (auto) RBC Hgb Hct MCV MCH MCHC RDW Plt Count MPV Absolute Neuts (auto) Neutrophils % Neutrophils % (Manual) Band Neutrophils % Lymphocytes % Lymphocytes % (Manual) Monocytes % (Manual) Eosinophils % (Manual) Basophils % (Manual) Myelocytes % (Man) Promyelocytes % (Man) Blast Cells % (Manual) Nucleated RBC % Metamyelocytes Manual Slide Review Hypochromia Platelet Estimate Platelet Comment Polychromasia Poikilocytosis Anisocytosis Microcytosis Macrocytosis Sodium Potassium Chloride Carbon Dioxide Anion Gap BUN Creatinine Creat Clearance w eGFR POC Glucometer 457 587 419 Random Glucose Calcium Total Bilirubin AST ALT Alkaline Phosphatase Ammonia Total Protein Albumin Urine Color Urine Appearance Urine pH Ur Specific [place] Urine Protein Urine Glucose (UA) Urine Ketones Urine Blood Urine Nitrite Urine Bilirubin Urine Urobilinogen Ur Leukocyte Esterase Urine WBC (Auto) Urine RBC (Auto) Ur Epithelial Cells Urine Mucus Urine Yeast RPR Titer 01/21/19 01/21/19 01/21/19 11:25 17:18 21:30 WBC Corrected WBC (auto) RBC Hgb Hct MCV MCH MCHC RDW Plt Count MPV Absolute Neuts (auto) Neutrophils % Neutrophils % (Manual) Band Neutrophils % Lymphocytes % Lymphocytes % (Manual) Monocytes % (Manual) Eosinophils % (Manual) Basophils % (Manual) Myelocytes % (Man) Promyelocytes % (Man) Blast Cells % (Manual) Nucleated RBC % Metamyelocytes Manual Slide Review Hypochromia Platelet Estimate Platelet Comment Polychromasia Poikilocytosis Anisocytosis Microcytosis Macrocytosis Sodium Potassium Chloride Carbon Dioxide Anion Gap BUN Creatinine Creat Clearance w eGFR POC Glucometer 430 361 > 600 Random Glucose Calcium Total Bilirubin AST ALT Alkaline Phosphatase Ammonia Total Protein Albumin Urine Color Urine Appearance Urine pH Ur Specific [place] Urine Protein Urine Glucose (UA) Urine Ketones Urine Blood Urine Nitrite Urine Bilirubin Urine Urobilinogen Ur Leukocyte Esterase Urine WBC (Auto) Urine RBC (Auto) Ur Epithelial Cells Urine Mucus Urine Yeast RPR Titer 01/22/19 01/22/19 01/22/19 01:00 06:09 08:30 WBC Corrected WBC (auto) RBC Hgb Hct MCV MCH MCHC RDW Plt Count MPV Absolute Neuts (auto) Neutrophils % Neutrophils % (Manual) Band Neutrophils % Lymphocytes % Lymphocytes % (Manual) Monocytes % (Manual) Eosinophils % (Manual) Basophils % (Manual) Myelocytes % (Man) Promyelocytes % (Man) Blast Cells % (Manual) Nucleated RBC % Metamyelocytes Manual Slide Review Hypochromia Platelet Estimate Platelet Comment Polychromasia Poikilocytosis Anisocytosis Microcytosis Macrocytosis Sodium Potassium Chloride Carbon Dioxide Anion Gap BUN Creatinine Creat Clearance w eGFR POC Glucometer > 600 505 Random Glucose Calcium Total Bilirubin AST ALT Alkaline Phosphatase Ammonia Total Protein Albumin Urine Color Straw Urine Appearance Clear Urine pH 6.0 Ur Specific [place] 1.027 Urine Protein 2+ H Urine Glucose (UA) 3+ H Urine Ketones Negative Urine Blood 1+ H Urine Nitrite Negative Urine Bilirubin Negative Urine Urobilinogen Negative Ur Leukocyte Esterase Negative Urine WBC (Auto) <1 Urine RBC (Auto) 3 Ur Epithelial Cells Rare Urine Mucus Rare Urine Yeast RPR Titer 01/22/19 01/22/19 01/22/19 11:54 16:58 21:25 WBC Corrected WBC (auto) RBC Hgb Hct MCV MCH MCHC RDW Plt Count MPV Absolute Neuts (auto) Neutrophils % Neutrophils % (Manual) Band Neutrophils % Lymphocytes % Lymphocytes % (Manual) Monocytes % (Manual) Eosinophils % (Manual) Basophils % (Manual) Myelocytes % (Man) Promyelocytes % (Man) Blast Cells % (Manual) Nucleated RBC % Metamyelocytes Manual Slide Review Hypochromia Platelet Estimate Platelet Comment Polychromasia Poikilocytosis Anisocytosis Microcytosis Macrocytosis Sodium Potassium Chloride Carbon Dioxide Anion Gap BUN Creatinine Creat Clearance w eGFR POC Glucometer 494 > 600 > 600 Random Glucose Calcium Total Bilirubin AST ALT Alkaline Phosphatase Ammonia Total Protein Albumin Urine Color Urine Appearance Urine pH Ur Specific [place] Urine Protein Urine Glucose (UA) Urine Ketones Urine Blood Urine Nitrite Urine Bilirubin Urine Urobilinogen Ur Leukocyte Esterase Urine WBC (Auto) Urine RBC (Auto) Ur Epithelial Cells Urine Mucus Urine Yeast RPR Titer 01/23/19 01/23/19 01/23/19 06:08 12:02 13:09 WBC Corrected WBC (auto) RBC Hgb Hct MCV MCH MCHC RDW Plt Count MPV Absolute Neuts (auto) Neutrophils % Neutrophils % (Manual) Band Neutrophils % Lymphocytes % Lymphocytes % (Manual) Monocytes % (Manual) Eosinophils % (Manual) Basophils % (Manual) Myelocytes % (Man) Promyelocytes % (Man) Blast Cells % (Manual) Nucleated RBC % Metamyelocytes Manual Slide Review Hypochromia Platelet Estimate Platelet Comment Polychromasia Poikilocytosis Anisocytosis Microcytosis Macrocytosis Sodium Potassium Chloride Carbon Dioxide Anion Gap BUN Creatinine Creat Clearance w eGFR POC Glucometer > 600 > 600 > 600 Random Glucose Calcium Total Bilirubin AST ALT Alkaline Phosphatase Ammonia Total Protein Albumin Urine Color Urine Appearance Urine pH Ur Specific [place] Urine Protein Urine Glucose (UA) Urine Ketones Urine Blood Urine Nitrite Urine Bilirubin Urine Urobilinogen Ur Leukocyte Esterase Urine WBC (Auto) Urine RBC (Auto) Ur Epithelial Cells Urine Mucus Urine Yeast RPR Titer 01/23/19 01/23/19 01/23/19 16:11 18:07 20:15 WBC Corrected WBC (auto) RBC Hgb Hct MCV MCH MCHC RDW Plt Count MPV Absolute Neuts (auto) Neutrophils % Neutrophils % (Manual) Band Neutrophils % Lymphocytes % Lymphocytes % (Manual) Monocytes % (Manual) Eosinophils % (Manual) Basophils % (Manual) Myelocytes % (Man) Promyelocytes % (Man) Blast Cells % (Manual) Nucleated RBC % Metamyelocytes Manual Slide Review Hypochromia Platelet Estimate Platelet Comment Polychromasia Poikilocytosis Anisocytosis Microcytosis Macrocytosis Sodium Potassium Chloride Carbon Dioxide Anion Gap BUN Creatinine Creat Clearance w eGFR POC Glucometer 537 592 484 Random Glucose Calcium Total Bilirubin AST ALT Alkaline Phosphatase Ammonia Total Protein Albumin Urine Color Urine Appearance Urine pH Ur Specific [place] Urine Protein Urine Glucose (UA) Urine Ketones Urine Blood Urine Nitrite Urine Bilirubin Urine Urobilinogen Ur Leukocyte Esterase Urine WBC (Auto) Urine RBC (Auto) Ur Epithelial Cells Urine Mucus Urine Yeast RPR Titer 01/23/19 01/24/19 01/24/19 22:19 00:32 06:25 WBC Corrected WBC (auto) RBC Hgb Hct MCV MCH MCHC RDW Plt Count MPV Absolute Neuts (auto) Neutrophils % Neutrophils % (Manual) Band Neutrophils % Lymphocytes % Lymphocytes % (Manual) Monocytes % (Manual) Eosinophils % (Manual) Basophils % (Manual) Myelocytes % (Man) Promyelocytes % (Man) Blast Cells % (Manual) Nucleated RBC % Metamyelocytes Manual Slide Review Hypochromia Platelet Estimate Platelet Comment Polychromasia Poikilocytosis Anisocytosis Microcytosis Macrocytosis Sodium Potassium Chloride Carbon Dioxide Anion Gap BUN Creatinine Creat Clearance w eGFR POC Glucometer 506 492 275 Random Glucose Calcium Total Bilirubin AST ALT Alkaline Phosphatase Ammonia Total Protein Albumin Urine Color Urine Appearance Urine pH Ur Specific [place] Urine Protein Urine Glucose (UA) Urine Ketones Urine Blood Urine Nitrite Urine Bilirubin Urine Urobilinogen Ur Leukocyte Esterase Urine WBC (Auto) Urine RBC (Auto) Ur Epithelial Cells Urine Mucus Urine Yeast RPR Titer 01/24/19 01/24/19 01/24/19 09:00 11:28 16:33 WBC Corrected WBC (auto) RBC Hgb Hct MCV MCH MCHC RDW Plt Count MPV Absolute Neuts (auto) Neutrophils % Neutrophils % (Manual) Band Neutrophils % Lymphocytes % Lymphocytes % (Manual) Monocytes % (Manual) Eosinophils % (Manual) Basophils % (Manual) Myelocytes % (Man) Promyelocytes % (Man) Blast Cells % (Manual) Nucleated RBC % Metamyelocytes Manual Slide Review Hypochromia Platelet Estimate Platelet Comment Polychromasia Poikilocytosis Anisocytosis Microcytosis Macrocytosis Sodium Potassium Chloride Carbon Dioxide Anion Gap BUN Creatinine Creat Clearance w eGFR POC Glucometer 267 320 434 Random Glucose Calcium Total Bilirubin AST ALT Alkaline Phosphatase Ammonia Total Protein Albumin Urine Color Urine Appearance Urine pH Ur Specific [place] Urine Protein Urine Glucose (UA) Urine Ketones Urine Blood Urine Nitrite Urine Bilirubin Urine Urobilinogen Ur Leukocyte Esterase Urine WBC (Auto) Urine RBC (Auto) Ur Epithelial Cells Urine Mucus Urine Yeast RPR Titer 01/24/19 01/25/19 01/25/19 20:57 06:24 12:09 WBC Corrected WBC (auto) RBC Hgb Hct MCV MCH MCHC RDW Plt Count MPV Absolute Neuts (auto) Neutrophils % Neutrophils % (Manual) Band Neutrophils % Lymphocytes % Lymphocytes % (Manual) Monocytes % (Manual) Eosinophils % (Manual) Basophils % (Manual) Myelocytes % (Man) Promyelocytes % (Man) Blast Cells % (Manual) Nucleated RBC % Metamyelocytes Manual Slide Review Hypochromia Platelet Estimate Platelet Comment Polychromasia Poikilocytosis Anisocytosis Microcytosis Macrocytosis Sodium Potassium Chloride Carbon Dioxide Anion Gap BUN Creatinine Creat Clearance w eGFR POC Glucometer 494 327 512 Random Glucose Calcium Total Bilirubin AST ALT Alkaline Phosphatase Ammonia Total Protein Albumin Urine Color Urine Appearance Urine pH Ur Specific [place] Urine Protein Urine Glucose (UA) Urine Ketones Urine Blood Urine Nitrite Urine Bilirubin Urine Urobilinogen Ur Leukocyte Esterase Urine WBC (Auto) Urine RBC (Auto) Ur Epithelial Cells Urine Mucus Urine Yeast RPR Titer 01/25/19 01/25/19 01/25/19 16:38 18:28 19:16 WBC Corrected WBC (auto) RBC Hgb Hct MCV MCH MCHC RDW Plt Count MPV Absolute Neuts (auto) Neutrophils % Neutrophils % (Manual) Band Neutrophils % Lymphocytes % Lymphocytes % (Manual) Monocytes % (Manual) Eosinophils % (Manual) Basophils % (Manual) Myelocytes % (Man) Promyelocytes % (Man) Blast Cells % (Manual) Nucleated RBC % Metamyelocytes Manual Slide Review Hypochromia Platelet Estimate Platelet Comment Polychromasia Poikilocytosis Anisocytosis Microcytosis Macrocytosis Sodium Potassium Chloride Carbon Dioxide Anion Gap BUN Creatinine Creat Clearance w eGFR POC Glucometer > 600 > 600 > 600 Random Glucose Calcium Total Bilirubin AST ALT Alkaline Phosphatase Ammonia Total Protein Albumin Urine Color Urine Appearance Urine pH Ur Specific [place] Urine Protein Urine Glucose (UA) Urine Ketones Urine Blood Urine Nitrite Urine Bilirubin Urine Urobilinogen Ur Leukocyte Esterase Urine WBC (Auto) Urine RBC (Auto) Ur Epithelial Cells Urine Mucus Urine Yeast RPR Titer 01/25/19 01/25/19 01/26/19 19:51 20:56 07:28 WBC Corrected WBC (auto) RBC Hgb Hct MCV MCH MCHC RDW Plt Count MPV Absolute Neuts (auto) Neutrophils % Neutrophils % (Manual) Band Neutrophils % Lymphocytes % Lymphocytes % (Manual) Monocytes % (Manual) Eosinophils % (Manual) Basophils % (Manual) Myelocytes % (Man) Promyelocytes % (Man) Blast Cells % (Manual) Nucleated RBC % Metamyelocytes Manual Slide Review Hypochromia Platelet Estimate Platelet Comment Polychromasia Poikilocytosis Anisocytosis Microcytosis Macrocytosis Sodium Potassium Chloride Carbon Dioxide Anion Gap BUN Creatinine Creat Clearance w eGFR POC Glucometer 514 484 320 Random Glucose Calcium Total Bilirubin AST ALT Alkaline Phosphatase Ammonia Total Protein Albumin Urine Color Urine Appearance Urine pH Ur Specific [place] Urine Protein Urine Glucose (UA) Urine Ketones Urine Blood Urine Nitrite Urine Bilirubin Urine Urobilinogen Ur Leukocyte Esterase Urine WBC (Auto) Urine RBC (Auto) Ur Epithelial Cells Urine Mucus Urine Yeast RPR Titer 01/26/19 01/26/19 01/26/19 11:20 12:07 13:55 WBC Corrected WBC (auto) RBC Hgb Hct MCV MCH MCHC RDW Plt Count MPV Absolute Neuts (auto) Neutrophils % Neutrophils % (Manual) Band Neutrophils % Lymphocytes % Lymphocytes % (Manual) Monocytes % (Manual) Eosinophils % (Manual) Basophils % (Manual) Myelocytes % (Man) Promyelocytes % (Man) Blast Cells % (Manual) Nucleated RBC % Metamyelocytes Manual Slide Review Hypochromia Platelet Estimate Platelet Comment Polychromasia Poikilocytosis Anisocytosis Microcytosis Macrocytosis Sodium Potassium Chloride Carbon Dioxide Anion Gap BUN Creatinine Creat Clearance w eGFR POC Glucometer > 600 > 600 Random Glucose Calcium Total Bilirubin AST ALT Alkaline Phosphatase Ammonia Total Protein Albumin Urine Color Straw Urine Appearance Clear Urine pH 7.0 Ur Specific [place] 1.026 Urine Protein 1+ H Urine Glucose (UA) 3+ H Urine Ketones Negative Urine Blood 1+ H Urine Nitrite Negative Urine Bilirubin Negative Urine Urobilinogen Negative Ur Leukocyte Esterase Negative Urine WBC (Auto) 1 Urine RBC (Auto) 3 Ur Epithelial Cells Rare Urine Mucus Urine Yeast Rare RPR Titer 01/26/19 15:12 WBC Corrected WBC (auto) RBC Hgb Hct MCV MCH MCHC RDW Plt Count MPV Absolute Neuts (auto) Neutrophils % Neutrophils % (Manual) Band Neutrophils % Lymphocytes % Lymphocytes % (Manual) Monocytes % (Manual) Eosinophils % (Manual) Basophils % (Manual) Myelocytes % (Man) Promyelocytes % (Man) Blast Cells % (Manual) Nucleated RBC % Metamyelocytes Manual Slide Review Hypochromia Platelet Estimate Platelet Comment Polychromasia Poikilocytosis Anisocytosis Microcytosis Macrocytosis Sodium Potassium Chloride Carbon Dioxide Anion Gap BUN Creatinine Creat Clearance w eGFR POC Glucometer > 600 Random Glucose Calcium Total Bilirubin AST ALT Alkaline Phosphatase Ammonia Total Protein Albumin Urine Color Urine Appearance Urine pH Ur Specific [place] Urine Protein Urine Glucose (UA) Urine Ketones Urine Blood Urine Nitrite Urine Bilirubin Urine Urobilinogen Ur Leukocyte Esterase Urine WBC (Auto) Urine RBC (Auto) Ur Epithelial Cells Urine Mucus Urine Yeast RPR Titer PE: ALERT AND ORIENTED X 3 SKIN WARM AND DRY +PERRLA, EOMS INTACT BL CAR S1S2 RESP CTA BL EXT FULL ROM, AMB AD KAM A/P: HYPERGLYCEMIA WILL ORDER ADDITIONAL 10 UNITS OF LEVEMIR REPEAT BS REMAINS HI ALTHOUGH PATIENT SEEN AGAIN DRINKING JUICE IN DINING ROOM PATIENT EDUCATION REGARDING DIET MODIFICATIONS DISCUSSED AT [facility] IMPORTANCE OF COMPLIANCE CONTINUE TO MONITOR BGM [place] ORAL FLUIDS CONTINUE TO MONITOR CLINICALLY FOLLOW UP AMMONIA LEVEL WHEN AVAILABLE
[2019-01-26] MEDS: INSULIN (LEVEMIR) 100 UNITS/ML UNITS SQ SCH (22:09)
[2019-01-26] MEDS: THIAMINE HCL 100 MG TABLET (FP) PO SCH (22:09)
[2019-01-27] MEDS: INSULIN SLIDING SCALE (NOVOLOG) 1 VIAL SQ SCH ×4 (06:45→21:30)
[2019-01-27] MEDS: INSULIN (LEVEMIR) 100 UNITS/ML UNITS SQ SCH ×2 (06:45→21:29)
[2019-01-27] MEDS: NADOLOL 20 MG TABLET (FP) PO SCH (09:31)
[2019-01-27] MEDS: PANTOPRAZOLE 40 MG TABLET (FP) PO SCH (09:31)
[2019-01-27] MEDS: LACTULOSE 20 GM/30 ML UDC (FOR ORAL USE ONLY) PO SCH ×4 (09:32→21:29)
[2019-01-27] MEDS: LISINOPRIL 10 MG TABLET (FP) PO SCH (09:32)
[2019-01-27] MEDS: PRENATAL VITAMINS W/ FOLIC ACID TABLET (FP) PO SCH (09:32)
[2019-01-27] MEDS: IBUPROFEN 400 MG TABLET (FP) PO PRN ×2 (09:33→17:31)
[2019-01-27] MEDS: hydrOXYzine PAMOATE 25 MG CAPSULE (FP) PO PRN ×2 (09:34→21:30)
[2019-01-27] MEDS ORDERED: INSULIN (NOVOLOG) ASPART 100 UNITS/ML 10ML VIAL ONE ×3 (12:04→22:43)
[2019-01-27] MEDS: SELENIUM SULFIDE 2.5% LOTION 4 OZ. TP SCH (12:23)
--- NOTE | 2019-01-27 14:59 | PN ---
[facility] Progress Note Note: Laboratory Tests 01/17/19 01/17/19 01/17/19 09:59 16:14 16:38 WBC Corrected WBC (auto) RBC Hgb Hct MCV MCH MCHC RDW Plt Count MPV Absolute Neuts (auto) Neutrophils % Neutrophils % (Manual) Band Neutrophils % Lymphocytes % Lymphocytes % (Manual) Monocytes % (Manual) Eosinophils % (Manual) Basophils % (Manual) Myelocytes % (Man) Promyelocytes % (Man) Blast Cells % (Manual) Nucleated RBC % Metamyelocytes Manual Slide Review Hypochromia Platelet Estimate Platelet Comment Polychromasia Poikilocytosis Anisocytosis Microcytosis Macrocytosis Sodium Potassium Chloride Carbon Dioxide Anion Gap BUN Creatinine Creat Clearance w eGFR POC Glucometer 539 561 Random Glucose Calcium Total Bilirubin AST ALT Alkaline Phosphatase Ammonia Total Protein Albumin Urine Color Straw Urine Appearance Clear Urine pH 7.0 Ur Specific [place] 1.021 Urine Protein 2+ H Urine Glucose (UA) 3+ H Urine Ketones Trace H Urine Blood 2+ H Urine Nitrite Negative Urine Bilirubin Negative Urine Urobilinogen Negative Ur Leukocyte Esterase Negative Urine WBC (Auto) 1 Urine RBC (Auto) 17 Ur Epithelial Cells Rare Urine Mucus Urine Yeast RPR Titer 01/17/19 01/18/19 01/18/19 21:44 05:57 07:50 WBC Cancelled Corrected WBC (auto) Cancelled RBC Cancelled Hgb Cancelled Hct Cancelled MCV Cancelled MCH Cancelled MCHC Cancelled RDW Cancelled Plt Count Cancelled MPV Cancelled Absolute Neuts (auto) Neutrophils % Neutrophils % (Manual) Band Neutrophils % Lymphocytes % Lymphocytes % (Manual) Monocytes % (Manual) Eosinophils % (Manual) Basophils % (Manual) Myelocytes % (Man) Promyelocytes % (Man) Blast Cells % (Manual) Nucleated RBC % Metamyelocytes Manual Slide Review Cancelled Hypochromia Platelet Estimate Platelet Comment Cancelled Polychromasia Poikilocytosis Anisocytosis Microcytosis Macrocytosis Sodium Potassium Chloride Carbon Dioxide Anion Gap BUN Creatinine Creat Clearance w eGFR POC Glucometer 457 213 Random Glucose Calcium Total Bilirubin AST ALT Alkaline Phosphatase Ammonia Total Protein Albumin Urine Color Urine Appearance Urine pH Ur Specific [place] Urine Protein Urine Glucose (UA) Urine Ketones Urine Blood Urine Nitrite Urine Bilirubin Urine Urobilinogen Ur Leukocyte Esterase Urine WBC (Auto) Urine RBC (Auto) Ur Epithelial Cells Urine Mucus Urine Yeast RPR Titer 0201/18/19 01/18/19 07:50 07:50 07:50 WBC Corrected WBC (auto) RBC Hgb Hct MCV MCH MCHC RDW Plt Count MPV Absolute Neuts (auto) Neutrophils % Neutrophils % (Manual) Band Neutrophils % Lymphocytes % Lymphocytes % (Manual) Monocytes % (Manual) Eosinophils % (Manual) Basophils % (Manual) Myelocytes % (Man) Promyelocytes % (Man) Blast Cells % (Manual) Nucleated RBC % Metamyelocytes Manual Slide Review Hypochromia Platelet Estimate Platelet Comment Polychromasia Poikilocytosis Anisocytosis Microcytosis Macrocytosis Sodium 136 Potassium 3.7 Chloride 107 Carbon Dioxide 22 Anion Gap 7 L BUN 11 Creatinine 0.5 L Creat Clearance w eGFR > 60 POC Glucometer Random Glucose 211 H Calcium 7.8 L Total Bilirubin 0.2 AST 33 ALT 42 Alkaline Phosphatase 174 H Ammonia 120.10 H Total Protein 6.0 L Albumin 1.8 L Urine Color Urine Appearance Urine pH Ur Specific [place] Urine Protein Urine Glucose (UA) Urine Ketones Urine Blood Urine Nitrite Urine Bilirubin Urine Urobilinogen Ur Leukocyte Esterase Urine WBC (Auto) Urine RBC (Auto) Ur Epithelial Cells Urine Mucus Urine Yeast RPR Titer Nonreactive 01/18/19 01/18/19 01/18/19 10:47 16:33 21:27 WBC Corrected WBC (auto) RBC Hgb Hct MCV MCH MCHC RDW Plt Count MPV Absolute Neuts (auto) Neutrophils % Neutrophils % (Manual) Band Neutrophils % Lymphocytes % Lymphocytes % (Manual) Monocytes % (Manual) Eosinophils % (Manual) Basophils % (Manual) Myelocytes % (Man) Promyelocytes % (Man) Blast Cells % (Manual) Nucleated RBC % Metamyelocytes Manual Slide Review Hypochromia Platelet Estimate Platelet Comment Polychromasia Poikilocytosis Anisocytosis Microcytosis Macrocytosis Sodium Potassium Chloride Carbon Dioxide Anion Gap BUN Creatinine Creat Clearance w eGFR POC Glucometer 147 447 468 Random Glucose Calcium Total Bilirubin AST ALT Alkaline Phosphatase Ammonia Total Protein Albumin Urine Color Urine Appearance Urine pH Ur Specific [place] Urine Protein Urine Glucose (UA) Urine Ketones Urine Blood Urine Nitrite Urine Bilirubin Urine Urobilinogen Ur Leukocyte Esterase Urine WBC (Auto) Urine RBC (Auto) Ur Epithelial Cells Urine Mucus Urine Yeast RPR Titer 01/19/19 01/19/19 01/19/19 05:53 10:40 16:21 WBC Corrected WBC (auto) RBC Hgb Hct MCV MCH MCHC RDW Plt Count MPV Absolute Neuts (auto) Neutrophils % Neutrophils % (Manual) Band Neutrophils % Lymphocytes % Lymphocytes % (Manual) Monocytes % (Manual) Eosinophils % (Manual) Basophils % (Manual) Myelocytes % (Man) Promyelocytes % (Man) Blast Cells % (Manual) Nucleated RBC % Metamyelocytes Manual Slide Review Hypochromia Platelet Estimate Platelet Comment Polychromasia Poikilocytosis Anisocytosis Microcytosis Macrocytosis Sodium Potassium Chloride Carbon Dioxide Anion Gap BUN Creatinine Creat Clearance w eGFR POC Glucometer 418 368 433 Random Glucose Calcium Total Bilirubin AST ALT Alkaline Phosphatase Ammonia Total Protein Albumin Urine Color Urine Appearance Urine pH Ur Specific [place] Urine Protein Urine Glucose (UA) Urine Ketones Urine Blood Urine Nitrite Urine Bilirubin Urine Urobilinogen Ur Leukocyte Esterase Urine WBC (Auto) Urine RBC (Auto) Ur Epithelial Cells Urine Mucus Urine Yeast RPR Titer 01/19/19 01/20/19 01/20/19 22:25 06:22 08:00 WBC 3.4 L Corrected WBC (auto) RBC 4.34 Hgb 11.8 Hct 35.7 D MCV 82.3 MCH 27.2 MCHC 33.0 RDW 21.1 H Plt Count 171 MPV 9.2 D Absolute Neuts (auto) 1.4 L Neutrophils % No Result Required. Neutrophils % (Manual) 45.3 Band Neutrophils % 0.0 Lymphocytes % No Result Required. Lymphocytes % (Manual) 30.5 D Monocytes % (Manual) 14 H Eosinophils % (Manual) 0.0 Basophils % (Manual) 0.0 Myelocytes % (Man) 0 Promyelocytes % (Man) 0 Blast Cells % (Manual) 0 Nucleated RBC % 1 H Metamyelocytes 1 D Manual Slide Review Hypochromia 1+ Platelet Estimate Decreased Platelet Comment Polychromasia 1+ Poikilocytosis 0 Anisocytosis 1+ Microcytosis 1+ Macrocytosis 0 Sodium Potassium Chloride Carbon Dioxide Anion Gap BUN Creatinine Creat Clearance w eGFR POC Glucometer 400 345 Random Glucose Calcium Total Bilirubin AST ALT Alkaline Phosphatase Ammonia Total Protein Albumin Urine Color Urine Appearance Urine pH Ur Specific [place] Urine Protein Urine Glucose (UA) Urine Ketones Urine Blood Urine Nitrite Urine Bilirubin Urine Urobilinogen Ur Leukocyte Esterase Urine WBC (Auto) Urine RBC (Auto) Ur Epithelial Cells Urine Mucus Urine Yeast RPR Titer 01/20/19 01/20/1901/20/19 08:00 08:22 11:01 WBC Corrected WBC (auto) RBC Hgb Hct MCV MCH MCHC RDW Plt Count MPV Absolute Neuts (auto) Neutrophils % Neutrophils % (Manual) Band Neutrophils % Lymphocytes % Lymphocytes % (Manual) Monocytes % (Manual) Eosinophils % (Manual) Basophils % (Manual) Myelocytes % (Man) Promyelocytes % (Man) Blast Cells % (Manual) Nucleated RBC % Metamyelocytes Manual Slide Review Hypochromia Platelet Estimate Platelet Comment Polychromasia Poikilocytosis Anisocytosis Microcytosis Macrocytosis Sodium 136 Potassium 4.3 Chloride 107 Carbon Dioxide 19 L Anion Gap 9 BUN 10 Creatinine 0.5 L Creat Clearance w eGFR > 60 POC Glucometer 390 Random Glucose 358 H* Calcium 8.4 L Total Bilirubin 0.2 AST 40 H ALT 50 Alkaline Phosphatase 193 H Ammonia Total Protein 6.3 L Albumin 1.8 L Urine Color Urine Appearance Urine pH Ur Specific [place] Urine Protein Urine Glucose (UA) Urine Ketones Urine Blood Urine Nitrite Urine Bilirubin Urine Urobilinogen Ur Leukocyte Esterase Urine WBC (Auto) Urine RBC (Auto) Ur Epithelial Cells Urine Mucus Urine Yeast RPR Titer Nonreactive 01/20/19 01/20/19 01/21/19 16:31 21:55 06:29 WBC Corrected WBC (auto) RBC Hgb Hct MCV MCH MCHC RDW Plt Count MPV Absolute Neuts (auto) Neutrophils % Neutrophils % (Manual) Band Neutrophils % Lymphocytes % Lymphocytes % (Manual) Monocytes % (Manual) Eosinophils % (Manual) Basophils % (Manual) Myelocytes % (Man) Promyelocytes % (Man) Blast Cells % (Manual) Nucleated RBC % Metamyelocytes Manual Slide Review Hypochromia Platelet Estimate Platelet Comment Polychromasia Poikilocytosis Anisocytosis Microcytosis Macrocytosis Sodium Potassium Chloride Carbon Dioxide Anion Gap BUN Creatinine Creat Clearance w eGFR POC Glucometer 457 587 419 Random Glucose Calcium Total Bilirubin AST ALT Alkaline Phosphatase Ammonia Total Protein Albumin Urine Color Urine Appearance Urine pH Ur Specific [place] Urine Protein Urine Glucose (UA) Urine Ketones Urine Blood Urine Nitrite Urine Bilirubin Urine Urobilinogen Ur Leukocyte Esterase Urine WBC (Auto) Urine RBC (Auto) Ur Epithelial Cells Urine Mucus Urine Yeast RPR Titer 01/21/19 01/21/19 01/21/19 11:25 17:18 21:30 WBC Corrected WBC (auto) RBC Hgb Hct MCV MCH MCHC RDW Plt Count MPV Absolute Neuts (auto) Neutrophils % Neutrophils % (Manual) Band Neutrophils % Lymphocytes % Lymphocytes % (Manual) Monocytes % (Manual) Eosinophils % (Manual) Basophils % (Manual) Myelocytes % (Man) Promyelocytes % (Man) Blast Cells % (Manual) Nucleated RBC % Metamyelocytes Manual Slide Review Hypochromia Platelet Estimate Platelet Comment Polychromasia Poikilocytosis Anisocytosis Microcytosis Macrocytosis Sodium Potassium Chloride Carbon Dioxide Anion Gap BUN Creatinine Creat Clearance w eGFR POC Glucometer 430 361 > 600 Random Glucose Calcium Total Bilirubin AST ALT Alkaline Phosphatase Ammonia Total Protein Albumin Urine Color Urine Appearance Urine pH Ur Specific [place] Urine Protein Urine Glucose (UA) Urine Ketones Urine Blood Urine Nitrite Urine Bilirubin Urine Urobilinogen Ur Leukocyte Esterase Urine WBC (Auto) Urine RBC (Auto) Ur Epithelial Cells Urine Mucus Urine Yeast RPR Titer 01/22/19 01/22/19 01/22/19 01:00 06:09 08:30 WBC Corrected WBC (auto) RBC Hgb Hct MCV MCH MCHC RDW Plt Count MPV Absolute Neuts (auto) Neutrophils % Neutrophils % (Manual) Band Neutrophils % Lymphocytes % Lymphocytes % (Manual) Monocytes % (Manual) Eosinophils % (Manual) Basophils % (Manual) Myelocytes % (Man) Promyelocytes % (Man) Blast Cells % (Manual) Nucleated RBC % Metamyelocytes Manual Slide Review Hypochromia Platelet Estimate Platelet Comment Polychromasia Poikilocytosis Anisocytosis Microcytosis Macrocytosis Sodium Potassium Chloride Carbon Dioxide Anion Gap BUN Creatinine Creat Clearance w eGFR POC Glucometer > 600 505 Random Glucose Calcium Total Bilirubin AST ALT Alkaline Phosphatase Ammonia Total Protein Albumin Urine Color Straw Urine Appearance Clear Urine pH 6.0 Ur Specific [place] 1.027 Urine Protein 2+ H Urine Glucose (UA) 3+ H Urine Ketones Negative Urine Blood 1+ H Urine Nitrite Negative Urine Bilirubin Negative Urine Urobilinogen Negative Ur Leukocyte Esterase Negative Urine WBC (Auto) <1 Urine RBC (Auto) 3 Ur Epithelial Cells Rare Urine Mucus Rare Urine Yeast RPR Titer 01/22/19 01/22/19 01/22/19 11:54 16:58 21:25 WBC Corrected WBC (auto) RBC Hgb Hct MCV MCH MCHC RDW Plt Count MPV Absolute Neuts (auto) Neutrophils % Neutrophils % (Manual) Band Neutrophils % Lymphocytes % Lymphocytes % (Manual) Monocytes % (Manual) Eosinophils % (Manual) Basophils % (Manual) Myelocytes % (Man) Promyelocytes % (Man) Blast Cells % (Manual) Nucleated RBC % Metamyelocytes Manual Slide Review Hypochromia Platelet Estimate Platelet Comment Polychromasia Poikilocytosis Anisocytosis Microcytosis Macrocytosis Sodium Potassium Chloride Carbon Dioxide Anion Gap BUN Creatinine Creat Clearance w eGFR POC Glucometer 494 > 600 > 600 Random Glucose Calcium Total Bilirubin AST ALT Alkaline Phosphatase Ammonia Total Protein Albumin Urine Color Urine Appearance Urine pH Ur Specific [place] Urine Protein Urine Glucose (UA) Urine Ketones Urine Blood Urine Nitrite Urine Bilirubin Urine Urobilinogen Ur Leukocyte Esterase Urine WBC (Auto) Urine RBC (Auto) Ur Epithelial Cells Urine Mucus Urine Yeast RPR Titer 01/23/19 01/23/19 01/23/19 06:08 12:02 13:09 WBC Corrected WBC (auto) RBC Hgb Hct MCV MCH MCHC RDW Plt Count MPV Absolute Neuts (auto) Neutrophils % Neutrophils % (Manual) Band Neutrophils % Lymphocytes % Lymphocytes % (Manual) Monocytes % (Manual) Eosinophils % (Manual) Basophils % (Manual) Myelocytes % (Man) Promyelocytes % (Man) Blast Cells % (Manual) Nucleated RBC % Metamyelocytes Manual Slide Review Hypochromia Platelet Estimate Platelet Comment Polychromasia Poikilocytosis Anisocytosis Microcytosis Macrocytosis Sodium Potassium Chloride Carbon Dioxide Anion Gap BUN Creatinine Creat Clearance w eGFR POC Glucometer > 600 > 600 > 600 Random Glucose Calcium Total Bilirubin AST ALT Alkaline Phosphatase Ammonia Total Protein Albumin Urine Color Urine Appearance Urine pH Ur Specific [place] Urine Protein Urine Glucose (UA) Urine Ketones Urine Blood Urine Nitrite Urine Bilirubin Urine Urobilinogen Ur Leukocyte Esterase Urine WBC (Auto) Urine RBC (Auto) Ur Epithelial Cells Urine Mucus Urine Yeast RPR Titer 01/23/19 01/23/19 01/23/19 16:11 18:07 20:15 WBC Corrected WBC (auto) RBC Hgb Hct MCV MCH MCHC RDW Plt Count MPV Absolute Neuts (auto) Neutrophils % Neutrophils % (Manual) Band Neutrophils % Lymphocytes % Lymphocytes % (Manual) Monocytes % (Manual) Eosinophils % (Manual) Basophils % (Manual) Myelocytes % (Man) Promyelocytes % (Man) Blast Cells % (Manual) Nucleated RBC % Metamyelocytes Manual Slide Review Hypochromia Platelet Estimate Platelet Comment Polychromasia Poikilocytosis Anisocytosis Microcytosis Macrocytosis Sodium Potassium Chloride Carbon Dioxide Anion Gap BUN Creatinine Creat Clearance w eGFR POC Glucometer 537 592 484 Random Glucose Calcium Total Bilirubin AST ALT Alkaline Phosphatase Ammonia Total Protein Albumin Urine Color Urine Appearance Urine pH Ur Specific [place] Urine Protein Urine Glucose (UA) Urine Ketones Urine Blood Urine Nitrite Urine Bilirubin Urine Urobilinogen Ur Leukocyte Esterase Urine WBC (Auto) Urine RBC (Auto) Ur Epithelial Cells Urine Mucus Urine Yeast RPR Titer 01/23/19 01/24/19 01/24/19 22:19 00:32 06:25 WBC Corrected WBC (auto) RBC Hgb Hct MCV MCH MCHC RDW Plt Count MPV Absolute Neuts (auto) Neutrophils % Neutrophils % (Manual) Band Neutrophils % Lymphocytes % Lymphocytes % (Manual) Monocytes % (Manual) Eosinophils % (Manual) Basophils % (Manual) Myelocytes % (Man) Promyelocytes % (Man) Blast Cells % (Manual) Nucleated RBC % Metamyelocytes Manual Slide Review Hypochromia Platelet Estimate Platelet Comment Polychromasia Poikilocytosis Anisocytosis Microcytosis Macrocytosis Sodium Potassium Chloride Carbon Dioxide Anion Gap BUN Creatinine Creat Clearance w eGFR POC Glucometer 506 492 275 Random Glucose Calcium Total Bilirubin AST ALT Alkaline Phosphatase Ammonia Total Protein Albumin Urine Color Urine Appearance Urine pH Ur Specific [place] Urine Protein Urine Glucose (UA) Urine Ketones Urine Blood Urine Nitrite Urine Bilirubin Urine Urobilinogen Ur Leukocyte Esterase Urine WBC (Auto) Urine RBC (Auto) Ur Epithelial Cells Urine Mucus Urine Yeast RPR Titer 01/24/19 01/24/19 01/24/19 09:00 11:28 16:33 WBC Corrected WBC (auto) RBC Hgb Hct MCV MCH MCHC RDW Plt Count MPV Absolute Neuts (auto) Neutrophils % Neutrophils % (Manual) Band Neutrophils % Lymphocytes % Lymphocytes % (Manual) Monocytes % (Manual) Eosinophils % (Manual) Basophils % (Manual) Myelocytes % (Man) Promyelocytes % (Man) Blast Cells % (Manual) Nucleated RBC % Metamyelocytes Manual Slide Review Hypochromia Platelet Estimate Platelet Comment Polychromasia Poikilocytosis Anisocytosis Microcytosis Macrocytosis Sodium Potassium Chloride Carbon Dioxide Anion Gap BUN Creatinine Creat Clearance w eGFR POC Glucometer 267 320 434 Random Glucose Calcium Total Bilirubin AST ALT Alkaline Phosphatase Ammonia Total Protein Albumin Urine Color Urine Appearance Urine pH Ur Specific [place] Urine Protein Urine Glucose (UA) Urine Ketones Urine Blood Urine Nitrite Urine Bilirubin Urine Urobilinogen Ur Leukocyte Esterase Urine WBC (Auto) Urine RBC (Auto) Ur Epithelial Cells Urine Mucus Urine Yeast RPR Titer 01/24/19 01/25/19 01/25/19 20:57 06:24 12:09 WBC Corrected WBC (auto) RBC Hgb Hct MCV MCH MCHC RDW Plt Count MPV Absolute Neuts (auto) Neutrophils % Neutrophils % (Manual) Band Neutrophils % Lymphocytes % Lymphocytes % (Manual) Monocytes % (Manual) Eosinophils % (Manual) Basophils % (Manual) Myelocytes % (Man) Promyelocytes % (Man) Blast Cells % (Manual) Nucleated RBC % Metamyelocytes Manual Slide Review Hypochromia Platelet Estimate Platelet Comment Polychromasia Poikilocytosis Anisocytosis Microcytosis Macrocytosis Sodium Potassium Chloride Carbon Dioxide Anion Gap BUN Creatinine Creat Clearance w eGFR POC Glucometer 494 327 512 Random Glucose Calcium Total Bilirubin AST ALT Alkaline Phosphatase Ammonia Total Protein Albumin Urine Color Urine Appearance Urine pH Ur Specific [place] Urine Protein Urine Glucose (UA) Urine Ketones Urine Blood Urine Nitrite Urine Bilirubin Urine Urobilinogen Ur Leukocyte Esterase Urine WBC (Auto) Urine RBC (Auto) Ur Epithelial Cells Urine Mucus Urine Yeast RPR Titer 01/25/19 01/25/19 01/25/19 16:38 18:28 19:16 WBC Corrected WBC (auto) RBC Hgb Hct MCV MCH MCHC RDW Plt Count MPV Absolute Neuts (auto) Neutrophils % Neutrophils % (Manual) Band Neutrophils % Lymphocytes % Lymphocytes % (Manual) Monocytes % (Manual) Eosinophils % (Manual) Basophils % (Manual) Myelocytes % (Man) Promyelocytes % (Man) Blast Cells % (Manual) Nucleated RBC % Metamyelocytes Manual Slide Review Hypochromia Platelet Estimate Platelet Comment Polychromasia Poikilocytosis Anisocytosis Microcytosis Macrocytosis Sodium Potassium Chloride Carbon Dioxide Anion Gap BUN Creatinine Creat Clearance w eGFR POC Glucometer > 600 > 600 > 600 Random Glucose Calcium Total Bilirubin AST ALT Alkaline Phosphatase Ammonia Total Protein Albumin Urine Color Urine Appearance Urine pH Ur Specific [place] Urine Protein Urine Glucose (UA) Urine Ketones Urine Blood Urine Nitrite Urine Bilirubin Urine Urobilinogen Ur Leukocyte Esterase Urine WBC (Auto) Urine RBC (Auto) Ur Epithelial Cells Urine Mucus Urine Yeast RPR Titer 01/25/19 01/25/19 01/26/19 19:51 20:56 07:28 WBC Corrected WBC (auto) RBC Hgb Hct MCV MCH MCHC RDW Plt Count MPV Absolute Neuts (auto) Neutrophils % Neutrophils % (Manual) Band Neutrophils % Lymphocytes % Lymphocytes % (Manual) Monocytes % (Manual) Eosinophils % (Manual) Basophils % (Manual) Myelocytes % (Man) Promyelocytes % (Man) Blast Cells % (Manual) Nucleated RBC % Metamyelocytes Manual Slide Review Hypochromia Platelet Estimate Platelet Comment Polychromasia Poikilocytosis Anisocytosis Microcytosis Macrocytosis Sodium Potassium Chloride Carbon Dioxide Anion Gap BUN Creatinine Creat Clearance w eGFR POC Glucometer 514 484 320 Random Glucose Calcium Total Bilirubin AST ALT Alkaline Phosphatase Ammonia Total Protein Albumin Urine Color Urine Appearance Urine pH Ur Specific [place] Urine Protein Urine Glucose (UA) Urine Ketones Urine Blood Urine Nitrite Urine Bilirubin Urine Urobilinogen Ur Leukocyte Esterase Urine WBC (Auto) Urine RBC (Auto) Ur Epithelial Cells Urine Mucus Urine Yeast RPR Titer 01/26/19 01/26/19 01/26/19 11:20 12:07 13:20 WBC Corrected WBC (auto) RBC Hgb Hct MCV MCH MCHC RDW Plt Count MPV Absolute Neuts (auto) Neutrophils % Neutrophils % (Manual) Band Neutrophils % Lymphocytes % Lymphocytes % (Manual) Monocytes % (Manual) Eosinophils % (Manual) Basophils % (Manual) Myelocytes % (Man) Promyelocytes % (Man) Blast Cells % (Manual) Nucleated RBC % Metamyelocytes Manual Slide Review Hypochromia Platelet Estimate Platelet Comment Polychromasia Poikilocytosis Anisocytosis Microcytosis Macrocytosis Sodium Potassium Chloride Carbon Dioxide Anion Gap BUN Creatinine Creat Clearance w eGFR POC Glucometer > 600 Random Glucose Calcium Total Bilirubin AST ALT Alkaline Phosphatase Ammonia 103.29 H Total Protein Albumin Urine Color Straw Urine Appearance Clear Urine pH 7.0 Ur Specific [place] 1.026 Urine Protein 1+ H Urine Glucose (UA) 3+ H Urine Ketones Negative Urine Blood 1+ H Urine Nitrite Negative Urine Bilirubin Negative Urine Urobilinogen Negative Ur Leukocyte Esterase Negative Urine WBC (Auto) 1 Urine RBC (Auto) 3 Ur Epithelial Cells Rare Urine Mucus Urine Yeast Rare RPR Titer 01/26/19 01/26/19 01/27/19 13:55 15:12 01:52 WBC Corrected WBC (auto) RBC Hgb Hct MCV MCH MCHC RDW Plt Count MPV Absolute Neuts (auto) Neutrophils % Neutrophils % (Manual) Band Neutrophils % Lymphocytes % Lymphocytes % (Manual) Monocytes % (Manual) Eosinophils % (Manual) Basophils % (Manual) Myelocytes % (Man) Promyelocytes % (Man) Blast Cells % (Manual) Nucleated RBC % Metamyelocytes Manual Slide Review Hypochromia Platelet Estimate Platelet Comment Polychromasia Poikilocytosis Anisocytosis Microcytosis Macrocytosis Sodium Potassium Chloride Carbon Dioxide Anion Gap BUN Creatinine Creat Clearance w eGFR POC Glucometer > 600 > 600 245 Random Glucose Calcium Total Bilirubin AST ALT Alkaline Phosphatase Ammonia Total Protein Albumin Urine Color Urine Appearance Urine pH Ur Specific [place] Urine Protein Urine Glucose (UA) Urine Ketones Urine Blood Urine Nitrite Urine Bilirubin Urine Urobilinogen Ur Leukocyte Esterase Urine WBC (Auto) Urine RBC (Auto) Ur Epithelial Cells Urine Mucus Urine Yeast RPR Titer 01/27/19 01/27/19 06:30 11:50 WBC Corrected WBC (auto) RBC Hgb Hct MCV MCH MCHC RDW Plt Count MPV Absolute Neuts (auto) Neutrophils % Neutrophils % (Manual) Band Neutrophils % Lymphocytes % Lymphocytes % (Manual) Monocytes % (Manual) Eosinophils % (Manual) Basophils % (Manual) Myelocytes % (Man) Promyelocytes % (Man) Blast Cells % (Manual) Nucleated RBC % Metamyelocytes Manual Slide Review Hypochromia Platelet Estimate Platelet Comment Polychromasia Poikilocytosis Anisocytosis Microcytosis Macrocytosis Sodium Potassium Chloride Carbon Dioxide Anion Gap BUN Creatinine Creat Clearance w eGFR POC Glucometer 369 > 600 Random Glucose Calcium Total Bilirubin AST ALT Alkaline Phosphatase Ammonia Total Protein Albumin Urine Color Urine Appearance Urine pH Ur Specific [place] Urine Protein Urine Glucose (UA) Urine Ketones Urine Blood Urine Nitrite Urine Bilirubin Urine Urobilinogen Ur Leukocyte Esterase Urine WBC (Auto) Urine RBC (Auto) Ur Epithelial Cells Urine Mucus Urine Yeast RPR Titer AMMONIA LEVEL 103. PATIENT TO CONTINUE LACTULOSE 20G QID. WILL REPEAT LEVEL . PATIENT ALSO WITH "HI" BLOOD SUGAR THIS AFTERNOON. COVERED WITH 12 UNITS OF NOVOLOG PER SLIDING SCALE. CONTINUE TO MONITOR CLINICALLY.
[2019-01-27] MEDS: THIAMINE HCL 100 MG TABLET (FP) PO SCH (21:30)
[2019-01-27] MEDS: MELATONIN 5 MG TABLETS PO PRN (21:30)
[2019-01-28 07:09] VITALS: TEMP 97.3
[2019-01-28] MEDS: INSULIN (LEVEMIR) 100 UNITS/ML UNITS SQ SCH (07:17)
[2019-01-28] MEDS: INSULIN SLIDING SCALE (NOVOLOG) 1 VIAL SQ SCH ×2 (07:18→11:43)
[2019-01-28] MEDS: hydrOXYzine PAMOATE 25 MG CAPSULE (FP) PO PRN (07:19)
[2019-01-28] MEDS: IBUPROFEN 400 MG TABLET (FP) PO PRN (07:19)
[2019-01-28] MEDS ORDERED: INSULIN (NOVOLOG) ASPART 100 UNITS/ML 10ML VIAL ONE ×3 (07:42→12:15)
[2019-01-28 09:29] VITALS: BP 151/91; PULSE 89
[2019-01-28] MEDS: LACTULOSE 20 GM/30 ML UDC (FOR ORAL USE ONLY) PO SCH ×2 (10:14→14:04)
[2019-01-28] MEDS: NADOLOL 20 MG TABLET (FP) PO SCH (10:14)
[2019-01-28] MEDS: PANTOPRAZOLE 40 MG TABLET (FP) PO SCH (10:14)
[2019-01-28] MEDS: LISINOPRIL 10 MG TABLET (FP) PO SCH (10:14)
[2019-01-28] MEDS: PRENATAL VITAMINS W/ FOLIC ACID TABLET (FP) PO SCH (10:14)
[2019-01-28] MEDS: SELENIUM SULFIDE 2.5% LOTION 4 OZ. TP SCH (10:15)
[2019-01-28] MEDS ORDERED: INSULIN (NOVOLOG) ASPART 100 UNITS/ML 10ML VIAL SQ ONE (11:57)
[2019-01-28] MEDS ORDERED: BACITRACIN 0.9 GM PACKET TP SCH (12:00)
--- NOTE | 2019-01-28 12:10 | PN ---
[facility] Progress Note Note: PATIENT HAS SMALL SCRATCH TO MID PARIETAL SCALP AREA. SMALL AMOUNT OF DRY BLOOD. NO REDNESS OR SWELLING OF AREA NOTED WILL ORDER BACITRACIN TP DAILY TO SITE AND CONTINUE TO MONITOR. ALSO INFORMED BY RN, PATIENT'S BLOOD SUGAR READS "HI". PATIENT COVERED WITH 12 UNITS OF INSULIN BUT DUE TO NONCOMPLIANCE WITH NCS DIET AND HX OF HYPERGLYCEMIA, WILL ADD 6 UNITS OF NOVOLOG. PE: PATIENT IS AWAKE AND ORIENTED X 3, SKIN WARM AND DRY, +PERRLA, EOMS INTACT B/L, EXT FULL ROM, AMB AD KAM. IN NAD. A/P: HYPERGLYCEMIA SCRATCH TREATMENT NOTED ABOVE Vital Signs Temperature 97.3 F L 01/28/19 07:08 Pulse Rate 89 01/28/19 09:29 Respiratory Rate 18 01/28/19 07:08 Blood Pressure 151/91 01/28/19 09:29 O2 Sat by Pulse Oximetry (%)
--- NOTE | 2019-01-28 16:37 | PN ---
[facility] Progress Note Note: Notified by RN that patient requested to sign out AMA. Patient evaluated by writer producer and stated " I want to leave because my tooth hurts and I have to go to dentist". Last Vital Signs Temp Pulse Resp BP Pulse Ox 97.3 F L 89 18 151/91 01/28/19 07:08 01/28/19 09:29 01/28/19 07:08 01/28/19 09:29 PE: alert and oriented x 3 skin:warm and dry mouth: left side of lower mandible with chancre sore neck: supple, full rom ext: full rom, amb ad agustín a/p: chancre sore DM elevated ammonia level- last level in ER 66 Patient encouraged by writer producer and staff to complete rehab and offered to treat oral pain with Oragel but patient refused. Patient states " I want to see a dentist today and I have to go now!". Patient explained risk factors with signing out AMA such as relapse and possible but patient refused to stay in rehab. Patient informed of lab values concerning elevated ammonia levels and elevated blood sugars and strongly advised to stay in treatment for ongoing monitoring and medical intervention, however, patient responded " I have all my medication at home including lactulose and insulin and I will follow up with my doctor at [facility]". Patient continued with AMA process despite interventions.
== END 2019-01-28 16:45 | disposition left against medical advice (07) | DRG 894 ==
LOC: YASAS 08:32 → Y6N 09:53 → Y3E 01-21 11:59
PROVIDERS: ADMIT Surgery; ATTEND Neuromusculoskeletal Medicine & OMM
PROC: HZ42ZZZ Group Counseling for Substance Abuse Treatment, Cognitive-Behavioral (ICD-10-PCS; principal; 2019-01-17)
DX: F10.20 Alcohol dependence, uncomplicated (principal); F14.20 Cocaine dependence, uncomplicated; E72.20 Disorder of urea cycle metabolism, unspecified; F17.210 Nicotine dependence, cigarettes, uncomplicated; I25.10 Atherosclerotic heart disease of native coronary artery without angina pectoris; I10 Essential (primary) hypertension; I25.2 Old myocardial infarction; E10.65 Type 1 diabetes mellitus with hyperglycemia; Z79.4 Long term (current) use of insulin; K74.60 Unspecified cirrhosis of liver; Z91.013 Allergy to seafood
CPT/HCPCS: 36415; 80053; 81003; 81015; 82140; 82962; 85025; 86593

== ENCOUNTER 2019-01-26 17:22 | Emergency (ER) | payer OTHER ==
--- NOTE | 2019-01-26 17:51 | PDOC ---
Rapid Medical Evaluation Medical Evaluation: Allergies Allergy/AdvReac Type Severity Reaction Status Date / Time fish derived Allergy Severe Swelling Verified 01/17/19 09:19 shellfish derived Allergy Severe Swelling Verified 01/17/19 09:19 No Known Drug Allergies Allergy Verified 01/17/19 09:19 SEAFOOD Allergy Severe Swelling Uncoded 01/17/19 09:19 I have performed a brief in-person evaluation of this patient. The patient presents with a chief complaint of: Hx T1DM (Lantus, Humalog), neuropathy, HTN, GERD, cirrhosis, alcohol abuse; sent from [facility] for hyperglycemia x 5 days; patient has been receiving her diabetic meds at [facility]; denies n/v Pertinent physical exam findings: In NAD I have ordered the following: Labs The patient will proceed to the ED for further evaluation. 01/26/19 17:47
[2019-01-26 17:53] VITALS: BP 142/75; PULSE 85; TEMP 98.7; BMI 29.0
[2019-01-26 18:28] LABS: BASO % 0.3 % (0-2.0); HEMATOCRIT 36.7 % (32.4-45.2); LYMPH % 38.9 % (8-40); MCHC 32.6 g/dl (32.0-36.0); MEAN CELL VOLUME 82.9 fl (80-96); MEAN PLT VOLUME 8.5 fl (7.5-11.1); MONO % 13.7 % (3.8-10.2); NEUT % 47.1 % (42.8-82.8); PLATELET COUNT 185 K/MM3 (134-434); RBC 4.43 M/mm3 (3.60-5.2); RDW 20.3 % (11.6-15.6); WHITE BLOOD COUNT 3.9 K/mm3 (4.0-10.0)
[2019-01-26 18:29] LABS: VENOUS PC02 36.2 mmHg (38-52); VENOUS PH 7.42 (7.32-7.42); VENOUS PO2 67.2 mmHg (28-48)
[2019-01-26 19:08] LABS: ALBUMIN 2.2 g/dl (3.4-5.0); ANION GAP 11 MMOL/L (8-16); BILIRUBIN,TOTAL 0.2 mg/dL (0.2-1); BLOOD UREA NITROGEN 17 mg/dL (7-18); CALCIUM 8.6 mg/dL (8.5-10.1); CHLORIDE 96 mmol/L (98-107); CO2 22 mmol/L (21-32); CREATININE 0.9 mg/dL (0.55-1.3); POTASSIUM 4.4 mmol/L (3.5-5.1); SGOT/AST 237 U/L (15-37); SGPT/ALT 161 U/L (13-61); SODIUM 129 mmol/L (136-145); TOT PROT 7.5 g/dl (6.4-8.2)
[2019-01-26 19:09] LABS: ALK PHOS 236 U/L (45-117)
[2019-01-26 19:10] LABS: GLUCOSE,RANDOM 685 mg/dL (74-106)
--- NOTE | 2019-01-26 19:31 | PDOC ---
History of Present Illness - General History Source: Patient Exam Limitations: No Limitations - History of Present Illness Initial Comments: 01/26/19 20:27 The patient is a 48 year old female from [facility] with a past medical history of IDDM and EtOH abuse who presents to the emergency department for evaluation of hyperglycemia and nausea with vomiting. Patient reports nausea with 2 episodes of non bloody emesis during her stay at [facility]. She states she was in rehabilitation for 9 days and has been hyperglycemic for 6 days. Patient endorses diarrhea due to the lactulose she has been taking for her elevated ammonia levels. She states she usually feels nausea when her glucose is elevated. Patient states she has been drinking a large quantity of water since the facility has been giving her insulin every 2 hours because her blood glucose level was 320 yesterday. The patient denies chest pain, abdominal pain, headache, shortness of breath, and dizziness. Denies fevers, chills, constipation, and any urinary symptoms. Allergies: Shellfish derived, no known drug allergies Social History: No reported cigarette or drug use. Surgical History: Cholecystectomy, appendectomy, tubal ligation <Tino Garcia - Last Filed: 01/26/19 20:29> <Sowmya Gutierrez - Last Filed: 01/27/19 02:01> - General Chief Complaint: Blood Sugar Problem Stated Complaint: HYPERGLYCEMIA Time Seen by Provider: 01/26/19 17:47 Past History <Tino Garcia - Last Filed: 01/26/19 20:29> - Past Medical History Anemia: No Asthma: No Cancer: No Cardiac Disorders: No CVA: No COPD: No CHF: No DVT: No Dementia: No Diabetes: Yes (iddm) GI Disorders: No Disorders: No HTN: Yes (on med) Hypercholesterolemia: No Kidney Stones: No Liver Disease: Yes (cirrhosis) Seizures: No Thyroid Disease: No - Surgical History Abdominal Surgery: Yes (TUBAL LIGATION IN 2005) Appendectomy: Yes (10/25/17) Cardiac Surgery: No Cholecystectomy: Yes (lap ) Lung Surgery: No Neurologic Surgery: No Orthopedic Surgery: Yes (neck, 11/30/2015 (fall);SX COCYX DUE TO OSTEOMYLITIS- 2010) - Reproductive History PID: No - Immunization History Immunization Up to Date: No - Suicide/Smoking/Psychosocial Hx Smoking History: Never smoked Have you smoked in the past 12 months: No Number of Cigarettes Smoked Daily: 0 Cigars Per Day: 0 Information on smoking cessation initiated: No 'Breaking Loose' booklet given: 05/30/16 Hx Alcohol Use: Yes Drug/Substance Use Hx: No Substance Use Type: Alcohol, Cocaine Hx Substance Use Treatment: Yes ([facility] 11/17/18 to 11/20/18) <MattGuidokatharine Barroso - Last Filed: 01/27/19 02:01> - Past Medical History Allergies/Adverse Reactions: Allergies Allergy/AdvReac Type Severity Reaction Status Date / Time fish derived Allergy Severe Swelling Verified 01/17/19 09:19 shellfish derived Allergy Severe Swelling Verified 01/17/19 09:19 No Known Drug Allergies Allergy Verified 01/17/19 09:19 SEAFOOD Allergy Severe Swelling Uncoded 01/17/19 09:19 Home Medications: Ambulatory Orders Esomeprazole Magnesium [Nexium 24Hr] 40 mg PO DAILY 11/09/18 Lisinopril [Prinivil] 10 mg PO DAILY 30 Days #30 tablet 11/17/18 Nadolol [Corgard -] 40 mg PO DAILY 30 Days #30 tablet 11/17/18 Pregabalin [Lyrica] 150 mg PO DAILY #45 capsule MDD 150mg 11/17/18 Insulin Glargine,Hum.rec.anlog [Lantus Solostar PEN (NF)] 45 units SQ HS Abd/GI Specific PMHX - Complaint Specific PMHX Hepatitis: No Pancreatitis: No <MtatGuidokatharine Barroso - Last Filed: 01/27/19 02:01> Review of Systems - Review of Systems Able to Perform ROS?: Yes Comments:: CONSTITUTIONAL: Absent: fever, chills, diaphoresis, generalized weakness, malaise, loss of appetite HEENT: Absent: rhinorrhea, nasal congestion, throat pain, throat swelling, difficulty swallowing, mouth swelling, ear pain, eye pain, visual Changes CARDIOVASCULAR: Absent: chest pain, syncope, palpitations, irregular heart rate, lightheadedness , peripheral edema RESPIRATORY: Absent: cough, shortness of breath, dyspnea with exertion, orthopnea, wheezing, stridor, hemoptysis GASTROINTESTINAL: (+)nausea. (+)vomiting. (+)Diarrhea. Absent: abdominal pain, abdominal distension, constipation, melena, hematochezia GENITOURINARY: Absent: dysuria, frequency, urgency, hesitancy, hematuria, flank pain, genital pain MUSCULOSKELETAL: Absent: myalgia, arthralgia, joint swelling SKIN: Absent: rash, itching, pallor HEMATOLOGIC/IMMUNOLOGIC: Absent: easy bleeding, easy bruising, lymphadenopathy, frequent infections ENDOCRINE: (+)hyperglycemic x6 days Absent: unexplained weight gain, unexplained weight loss, heat intolerance, cold intolerance NEUROLOGIC: Absent: headache, focal weakness or paresthesias, dizziness, unsteady gait, seizure, mental status changes, bladder or bowel incontinence PSYCHIATRIC: Absent: anxiety, depression, suicidal or homicidal ideation, hallucinations. <Tino Garcia - Last Filed: 01/26/19 20:29> *Physical Exam - Vital Signs Last Vital Signs Temp Pulse Resp BP Pulse Ox 98.7 F 85 16 142/75 97 01/26/19 17:48 01/26/19 17:48 01/26/19 17:48 01/26/19 17:48 01/26/19 17:48 - Physical Exam Comments: 01/26/19 20:28 wnwd 48 yo female in no acute distress head ncat neck supple oropharynx (+)Dry mucous membranes Heart RRR. No gallops, murmurs, or rubs. lungs clear to auscultation bilaterally abd Protuberant, nontender ext no e/c/c, MAEx4 skin warm and dry,no rashes neuro A&Ox3,no gross focal neuro deficits <Tino Garcia - Last Filed: 01/26/19 20:29> - Vital Signs Last Vital Signs Temp Pulse Resp BP Pulse Ox 98.7 F 85 16 142/75 97 01/26/19 17:48 01/26/19 17:48 01/26/19 17:48 01/26/19 17:48 01/26/19 17:48 <Sowmya Gutierrez - Last Filed: 01/27/19 02:01> Moderate Sedation - Procedure Monitoring Vital Signs: Procedure Monitoring Vital Signs Temperature 98.7 F 01/26/19 17:48 Pulse Rate 85 01/26/19 17:48 Respiratory Rate 16 01/26/19 17:48 Blood Pressure 142/75 01/26/19 17:48 O2 Sat by Pulse Oximetry (%) 97 01/26/19 17:48 <Tino Garcia - Last Filed: 01/26/19 20:29> - Procedure Monitoring Vital Signs: Procedure Monitoring Vital Signs Temperature 98.7 F 01/26/19 17:48 Pulse Rate 85 01/26/19 17:48 Respiratory Rate 16 01/26/19 17:48 Blood Pressure 142/75 01/26/19 17:48 O2 Sat by Pulse Oximetry (%) 97 01/26/19 17:48 <Sowmya Gutierrez - Last Filed: 01/27/19 02:01> ED Treatment Course - LABORATORY CBC & Chemistry Diagram: 01/26/19 18:14 01/26/19 18:14 - ADDITIONAL ORDERS Additional order review: Laboratory Results 01/26/19 01/26/19 01/26/19 18:18 18:14 18:14 VBG pH 7.42 POC VBG pCO2 36.2 L D POC VBG pO2 67.2 H D Mixed VBG HCO3 23.1 Sodium 129 L Potassium 4.4 Chloride 96 L Carbon Dioxide 22 Anion Gap 11 BUN 17 Creatinine 0.9 Creat Clearance w eGFR > 60 Random Glucose 685 H* Lactic Acid Calcium 8.6 Total Bilirubin 0.2 AST 237 H ALT 161 H Alkaline Phosphatase 236 H Ammonia 66.04 H Total Protein 7.5 Albumin 2.2 L 01/26/19 18:14 VBG pH POC VBG pCO2 POC VBG pO2 Mixed VBG HCO3 Sodium Potassium Chloride Carbon Dioxide Anion Gap BUN Creatinine Creat Clearance w eGFR Random Glucose Lactic Acid 2.5 H* Calcium Total Bilirubin AST ALT Alkaline Phosphatase Ammonia Total Protein Albumin 01/26/19 18:14 RBC 4.43 MCV 82.9 MCHC 32.6 RDW 20.3 H MPV 8.5 Neutrophils % 47.1 D Lymphocytes % 38.9 Monocytes % 13.7 H Eosinophils % 0.0 Basophils % 0.3 <Tino Garcia - Last Filed: 01/26/19 20:29> - LABORATORY CBC & Chemistry Diagram: 01/26/19 18:14 01/26/19 18:14 - ADDITIONAL ORDERS Additional order review: Laboratory Results 01/26/19 01/26/19 01/26/19 18:18 18:14 18:14 VBG pH 7.42 POC VBG pCO2 36.2 L D POC VBG pO2 67.2 H D Mixed VBG HCO3 23.1 Sodium 129 L Potassium 4.4 Chloride 96 L Carbon Dioxide 22 Anion Gap 11 BUN 17 Creatinine 0.9 Creat Clearance w eGFR > 60 Random Glucose 685 H* Lactic Acid Calcium 8.6 Total Bilirubin 0.2 AST 237 H ALT 161 H Alkaline Phosphatase 236 H Ammonia 66.04 H Total Protein 7.5 Albumin 2.2 L 01/26/19 18:14 VBG pH POC VBG pCO2 POC VBG pO2 Mixed VBG HCO3 Sodium Potassium Chloride Carbon Dioxide Anion Gap BUN Creatinine Creat Clearance w eGFR Random Glucose Lactic Acid 2.5 H* Calcium Total Bilirubin AST ALT Alkaline Phosphatase Ammonia Total Protein Albumin 01/26/19 18:14 RBC 4.43 MCV 82.9 MCHC 32.6 RDW 20.3 H MPV 8.5 Neutrophils % 47.1 D Lymphocytes % 38.9 Monocytes % 13.7 H Eosinophils % 0.0 Basophils % 0.3 <Sowmya Gutierrez - Last Filed: 01/27/19 02:01> Medical Decision Making - Medical Decision Making 01/27/19 01:37 NEGATIVE ACETONE, not in dka. Pt received 2 liters IVF and sq insulin Patient has no respiratory distress, no chest pain, no shortness of breath, denies any abdominal pain in his had no vomiting here no abdominal pain although her liver function tests were elevated 01/27/19 01:54 Repeat BGM his 245 I have called [facility] and spoken to the nurse on [address] and told her that the patient does not have DKA and will be discharged back to their facility 01/27/19 02:00 <Sowmya Gutierrez - Last Filed: 01/27/19 02:01> *DC/Admit/Observation/Transfer - Attestations Scribe Attestion: 01/26/19 20:28 Documentation prepared by Tino Garcia, acting as medical technician for Sowmya Gutierrez MD. <Tino Garcia - Last Filed: 01/26/19 20:29> <Sowmya Gutierrez - Last Filed: 01/27/19 02:01> Diagnosis at time of Disposition: Diabetes mellitus, insulin dependent (IDDM), uncontrolled Qualifiers: Glycemic state: with hyperglycemia Qualified Code(s): E10.65 - Type 1 diabetes mellitus with hyperglycemia - Discharge Dispostion Disposition: HOME Condition at time of disposition: Improved - Patient Instructions Printed Discharge Instructions: DI for Diabetes Type 1 -- Adult, DI for Hyperglycemia -- Adult Additional Instructions: please continue taking your diabetes medications return for any worsening symptoms
[2019-01-26] MEDS ORDERED: SODIUM CHLORIDE 1,000 ML IV STA (21:55)
[2019-01-26] MEDS ORDERED: INSULIN REGULAR HUMAN 100 UNITS/ML *VIAL SQ STA (22:57)
[2019-01-26] MEDS ORDERED: INSULIN REGULAR HUMAN 100 UNITS/ML *VIAL ONE (23:00)
[2019-01-27] MEDS ORDERED: ACETAMINOPHEN 325 MG TABLET (FP) ONE (01:48)
[2019-01-27] MEDS: ACETAMINOPHEN 650 MG/20.3 ML ORAL SOLUTION (CUPS) PO ONE ×2 (01:52→02:06)
[2019-01-27] MEDS ORDERED: ACETAMINOPHEN 325 MG TABLET (FP) PO ONE (02:06)
== END 2019-01-27 03:22 | disposition home or self-care (01) ==
LOC: JER 17:22
PROC: 3E0337Z Introduction of Electrolytic and Water Balance Substance into Peripheral Vein, Percutaneous Approach (ICD-10-PCS; principal; 2019-01-26)
PROC: 3E013VG Introduction of Insulin into Subcutaneous Tissue, Percutaneous Approach (ICD-10-PCS; 2019-01-26)
DX: E10.65 Type 1 diabetes mellitus with hyperglycemia (principal); Z79.4 Long term (current) use of insulin; F10.20 Alcohol dependence, uncomplicated; F14.20 Cocaine dependence, uncomplicated; Z91.013 Allergy to seafood
CPT/HCPCS: 36415; 73564-TC-RT-FY; 80053; 82009; 82140; 82803; 82962; 83605; 85025; 96360; 96372; 99282-25; J7030

== ENCOUNTER 2019-03-25 08:07 | Inpatient (IN) | payer OTHER ==
--- NOTE | 2019-03-25 09:05 | HP ---
CIWA Score Nausea/Vomitin Muscle Tremors: 2 Anxiety: 2 Agitation: 2 Paroxysmal Sweats: 1-Minimal Palms Moist Orientation: 0-Oriented Tacttile Disturbances: 1-Very Mild Itch/Numbness Auditory Disturbances: 1-Very Mild Visual Disturbances: 0-None Headache: 2-Mild CIWA-Ar Total Score: 13 - Admission Criteria OASAS Guidelines: Admission for Medically Managed Detox: Requires at least one of the followin. CIWA greater than 12 2. Seizures within the past 24 hours 3. Delirium tremens within the past 24 hours 4. Hallucinations within the past 24 hours 5. Acute intervention needed for co occurring medical disorder 6. Acute intervention needed for co occurring psychiatric disorder 7. Severe withdrawal that cannot be handled at a lower level of care (continued vomiting, continued diarrhea, abnormal vital signs) requiring intravenous medication and/or fluids 8. Admission ROS S - HPI Chief Complaint: i need help to stop drinking alcohol and cocaine Allergies/Adverse Reactions: Allergies Allergy/AdvReac Type Severity Reaction Status Date / Time fish derived Allergy Severe Swelling Verified 03/25/19 08:33 shellfish derived Allergy Severe Swelling Verified 03/25/19 08:33 No Known Drug Allergies Allergy Verified 03/25/19 08:33 SEAFOOD Allergy Severe Swelling Uncoded 03/25/19 08:33 History of Present Illness: this 48 years old female with alcohol dependence,cocaine dependence,seeking detox withdrawal symptom seen in [place] last night multiple admissions in detox and rehab but keep relapsing last rehab [facility] rehab 01/27/19 to 01/28/19 history of high ammonia level hypertension,iddm,non compliance no significant period of sobriety - Ebola screening Have you traveled outside of the country in the last 21 days: No Have you had contact with anyone from an Ebola affected area: No Do you have a fever: No - Review of Systems Constitutional: Loss of Appetite, Malaise, Night Sweats, Changes in sleep EENT: reports: Nose Congestion Respiratory: reports: No Symptoms reported Cardiac: reports: No Symptoms Reported GI: reports: Nausea, Poor Appetite, Abdominal cramping : reports: No Symptoms Reported Musculoskeletal: reports: Back Pain, Muscle Pain Integumentary: reports: Dryness Neuro: reports: No Symptoms reported, Tremors Endocrine: reports: No Symptoms Reported Hematology: reports: No Symptoms Reported Psychiatric: reports: No Sypmtoms Reported, Judgement Intact, Mood/Affect Appropiate, Orientated x3 Other Systems: Reviewed and Negative Patient History - Patient Medical History Hx Anemia: No Hx Asthma: No Hx Chronic Obstructive Pulmonary Disease (COPD): No Hx Cancer: No Hx Cardiac Disorders: No Hx Congestive Heart Failure: No Hx Hypertension: Yes (on med) Hx Hypercholesterolemia: No Hx Pacemaker: No HX Cerebrovascular Accident: No Hx Seizures: No Hx Dementia: No Hx Diabetes: Yes (iddm) Hx Gastrointestinal Disorders: No Hx Liver Disease: No Hx Genitourinary Disorders: No Hx Sexually Transmitted Disorders: No Hx Renal Disease (ESRD): No Hx Thyroid Disease: No Hx Human Immunodeficiency Virus (HIV): No (NEGATIVE HX last 10/18 negative) Hx Hepatitis C: No (NEGATIVE ) Hx Depression: No Hx Suicide Attempt: No Hx Bipolar Disorder: No Hx Schizophrenia: No Other Medical History: no suicidal,no homicidal - Patient Surgical History Past Surgical History: Yes Hx Neurologic Surgery: No Hx Cataract Extraction: No Hx Cardiac Surgery: No Hx Lung Surgery: No Hx Breast Surgery: No Hx Breast Biopsy: No Hx Abdominal Surgery: Yes (TUBAL LIGATION IN 2005) Hx Appendectomy: Yes (10/25/17) Hx Cholecystectomy: Yes (lap ) Hx Genitourinary Surgery: No Hx Section: No Hx Orthopedic Surgery: Yes (neck, 11/30/2015 (fall);SX COCYX DUE TO OSTEOMYLITIS - 2010) Other Surgical History: Pt had sx for intestinal blockage in 11/16 in [facility] 11/16 Anesthesia Reaction: No - PPD History Previous Implant?: Yes Documented Results: Negative w/proof Implanted On Prior R Admission?: Yes Date: 11/11/18 Results: 0 mm PPD to be Administered?: No - Reproductive History Patient is a Female of Child Bearing Age (11 -55 yrs old): Yes Last Menstrual Period: 12/15/18 Patient : No - Smoking Cessation Smoking history: Never smoked Have you smoked in the past 12 months: No Aproximately how many cigarettes per day: 0 Cigars Per Day: 0 Hx Chewing Tobacco Use: No - Substance & Tx. History Hx Alcohol Use: Yes Hx Substance Use: Yes Substance Use Type: Alcohol, Cocaine Hx Substance Use Treatment: Yes (rehab 01/17/19 to 01/28/19 [facility]) - Substances abused Alcohol Substance route: Oral Frequency: Daily Amount used: 1 liter vodka Age of first use: 43 Date of last use: 03/24/19 Cocaine Substance route: Smoking Frequency: 1-2 times per week Amount used: 10$ Age of first use: 46 Date of last use: 03/22/19 Family Disease History - Family Disease History Family Disease History: Diabetes: Grandparent (alcohol), Father (alive: 68: HTN) , Mother (alive: 67), Other: Grandparent, Father, Mother Admission Physical Exam [facility] - Vital Signs Vital Signs: Vital Signs - 24 hr 03/25/19 03/25/19 03/25/19 08:16 08:41 08:47 Temperature 98 F 98 F 98 F Pulse Rate 62 62 Respiratory 18 18 18 Rate Blood Pressure 138/61 138/61 - Physical General Appearance: Yes: Moderate Distress, Tremorous, Sweating, Anxious HEENTM: Yes: Normal ENT Inspection, HIGINIO, Pharynx Normal Respiratory: Yes: Lungs Clear, Normal Breath Sounds, No Respiratory Distress Neck: Yes: Within Normal Limits, Supple, Trachea in good position Breast: Yes: Breast Exam Deferred Cardiology: Yes: Within Normal Limits, Regular Rhythm, Regular Rate, S1, S2 Abdominal: Yes: Within Normal Limits, Normal Bowel Sounds, Non Tender, Flat, Soft Genitourinary: Yes: Within Normal Limits Back: Yes: Muscle Spasm Musculoskeletal: Yes: Back pain, Muscle Pain Extremities: Yes: Normal Capillary Refill, Normal Range of Motion, Tremors 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: Yes: aviation manager II-XII NML intact, Alert, Motor Strength 5/5 Integumentary: Yes: Dry Lymphatic: Yes: Within Normal Limits - Diagnostic (1) Alcohol dependence with uncomplicated withdrawal Current Visit: No Status: Chronic (2) Diabetes mellitus, insulin dependent (IDDM), uncontrolled Current Visit: No Status: Chronic Qualifiers: Glycemic state: with hyperglycemia Qualified Code(s): E10.65 - Type 1 diabetes mellitus with hyperglycemia (3) GERD (gastroesophageal reflux disease) Current Visit: No Status: Chronic Qualifiers: Esophagitis presence: without esophagitis Qualified Code(s): K21.9 - Gastro -esophageal reflux disease without esophagitis (4) Hypertension Current Visit: No Status: Chronic Qualifiers: Hypertension type: essential hypertension Qualified Code(s): I10 - Essential (primary) hypertension (5) Nicotine dependence Current Visit: No Status: Chronic Qualifiers: Nicotine product type: cigarettes Substance use status: uncomplicated Qualified Code(s): F17.210 - Nicotine dependence, cigarettes, uncomplicated (6) Polyneuropathy Current Visit: No Status: Chronic Cleared for Admission [facility] - Detox or Rehab [facility] Level of Care: Medically Managed Detox Regimen/Protocol: Librium Breathalyzer - Breathalyzer Breathalyzer: 0 POC Urine test - Test device test lot number: [id number] Expiration date: 07/31/20 - Control test control: Yes - Result Urine Test Results: Negative - NO line present Urine Drug Screen - Test Device Lot number: [id number] Expiration date: 10/30/20 - Control Is test valid?: Yes - Results Drug screen NEGATIVE: No Urine drug screen results: DEEPAK-Cocaine, BZO-Benzodiazepines Inpatient Rehab Admission - Rehab Decision to Admit Inpatient rehab admission?: No
[2019-03-25] MEDS ORDERED: METHOCARBAMOL 500 MG TABLET PO PRN (09:17)
[2019-03-25] MEDS ORDERED: chlordiazePOXIDE HCL 25 MG CAPSULE PO PRN (09:17)
[2019-03-25] MEDS ORDERED: IBUPROFEN 400 MG TABLET (FP) PO PRN (09:17)
[2019-03-25] MEDS ORDERED: MAGNESIUM CITRATE 300 ML BOTTLE PO PRN (09:17)
[2019-03-25] MEDS ORDERED: BISMUTH SUBSALICYLATE 524 MG/30 ML UD PO PRN (09:17)
[2019-03-25] MEDS ORDERED: hydrOXYzine PAMOATE 25 MG CAPSULE (FP) PO PRN (09:17)
[2019-03-25] MEDS ORDERED: MAG HYDROX/AL HYDROX/SIMETH 30 ML UNIT-DOSE CUP PO PRN (09:17)
[2019-03-25] MEDS ORDERED: MENTHOL/PHENOL 1 EACH UD MM PRN (09:17)
[2019-03-25] MEDS ORDERED: MAGNESIUM HYDROX 2400MG/30ML ORAL SUSPENSION 30 ML CUP PO PRN (09:17)
[2019-03-25] MEDS ORDERED: MELATONIN 5 MG TABLETS PO PRN (09:17)
[2019-03-25] MEDS ORDERED: ACETAMINOPHEN 325 MG TABLET (FP) PO PRN ×2 (09:17)
[2019-03-25 09:23] VITALS: BMI 29.0
[2019-03-25] MEDS ORDERED: BISMUTH SUBSALICYLATE 262 MG/15 ML BTL PO PRN (09:33)
[2019-03-25] MEDS ORDERED: INSULIN SLIDING SCALE (NOVOLOG) 1 VIAL SQ ONE ×3 (10:50→21:55)
[2019-03-25] MEDS: PRENATAL VITAMINS W/ FOLIC ACID TABLET (FP) PO SCH (10:51)
[2019-03-25] MEDS: LISINOPRIL 10 MG TABLET (FP) PO SCH (10:51)
[2019-03-25] MEDS: chlordiazePOXIDE HCL 25 MG CAPSULE PO SCH ×3 (10:52→22:00)
[2019-03-25] MEDS: PREGABALIN 75 MG CAPSULE PO SCH (10:52)
[2019-03-25] MEDS: PANTOPRAZOLE 40 MG TABLET (FP) PO SCH (10:52)
[2019-03-25] MEDS: INSULIN (NOVOLOG) ASPART 100 UNITS/ML 10ML VIAL SQ SCH ×3 (10:54→22:01)
[2019-03-25 12:28] LABS: HEMOGLOBIN 13.8 GM/dL (10.7-15.3); MCH 29.2 pg (25.7-33.7); MCHC 33.5 g/dl (32.0-36.0); MEAN CELL VOLUME 86.9 fl (80-96); MEAN PLT VOLUME 8.5 fl (7.5-11.1); PLATELET COUNT 194 K/MM3 (134-434); RBC 4.72 M/mm3 (3.60-5.2); WHITE BLOOD COUNT 5.9 K/mm3 (4.0-10.0)
[2019-03-25 12:39] LABS: ALBUMIN 2.5 g/dl (3.4-5.0); ALK PHOS 158 U/L (45-117); ANION GAP 9 MMOL/L (8-16); BILIRUBIN,TOTAL 0.5 mg/dL (0.2-1); BLOOD UREA NITROGEN 25 mg/dL (7-18); CALCIUM 8.8 mg/dL (8.5-10.1); CHLORIDE 103 mmol/L (98-107); CO2 20 mmol/L (21-32); CREATININE 0.8 mg/dL (0.55-1.3); POTASSIUM 4.4 mmol/L (3.5-5.1); SGOT/AST 62 U/L (15-37); SGPT/ALT 90 U/L (13-61); SODIUM 132 mmol/L (136-145); TOT PROT 7.8 g/dl (6.4-8.2)
[2019-03-25 12:46] LABS: GLUCOSE,RANDOM 426 mg/dL (74-106)
[2019-03-25] MEDS: THIAMINE HCL 100 MG TABLET (FP) PO SCH (21:56)
[2019-03-25] MEDS: INSULIN (LEVEMIR) 100 UNITS/ML UNITS SQ SCH (22:00)
[2019-03-26] MEDS: chlordiazePOXIDE HCL 25 MG CAPSULE PO SCH ×5 (05:59→23:19)
[2019-03-26] MEDS ORDERED: INSULIN SLIDING SCALE (NOVOLOG) 1 VIAL SQ ONE ×5 (07:34→23:25)
[2019-03-26] MEDS: INSULIN (NOVOLOG) ASPART 100 UNITS/ML 10ML VIAL SQ SCH ×4 (07:38→23:18)
[2019-03-26 10:17] LABS: EPI CELLS 2.1 /HPF (0-5/HPF); PH,URINE 5.5 (5.0-8.0); URINE APPEARANCE CLOUDY; URINE BACTERIA 47.9 /hpf (NEGATIVE); URINE BILIRUBIN NEGATIVE (NEGATIVE); URINE CASTS 1 /lpf (0-8); URINE COLOR YELLOW; URINE GLUCOSE (UA) 3+ (NEGATIVE); URINE KETONE NEGATIVE (NEGATIVE); URINE LEUK ESTERASE NEGATIVE (NEGATIVE); URINE NITRITE NEGATIVE (NEGATIVE); URINE PROTEIN 1+ (NEGATIVE); URINE UROBILINOGEN 0.2 mg/dL (0.2-1.0); URINE WBC 31 /hpf (0-5)
[2019-03-26] MEDS: PRENATAL VITAMINS W/ FOLIC ACID TABLET (FP) PO SCH (10:17)
[2019-03-26] MEDS: PANTOPRAZOLE 40 MG TABLET (FP) PO SCH (10:18)
[2019-03-26] MEDS: PREGABALIN 75 MG CAPSULE PO SCH (10:18)
[2019-03-26] MEDS: LISINOPRIL 10 MG TABLET (FP) PO SCH (10:18)
[2019-03-26 10:46] LABS: URINE RBC 33.6 /hpf (0-4); YEAST PRESENT (NEGATIVE)
--- NOTE | 2019-03-26 11:46 | PN ---
S CIWA - CIWA Score Nausea/Vomitin-No Nausea/No Vomiting Muscle Tremors: 3 Anxiety: 3 Agitation: 4-Moderately Restless Paroxysmal Sweats: 2 Orientation: 0-Oriented Tacttile Disturbances: 0-None Auditory Disturbances: 0-None Visual Disturbances: 0-None Headache: 0-None Present CIWA-Ar Total Score: 12 S Progress Note (SOAP) Subjective: sweats shakes body aches interrupted sleep Objective: 03/26/19 11:45 Vital Signs Temperature 98.6 F 03/26/19 09:26 Pulse Rate 94 H 03/26/19 09:26 Respiratory Rate 18 03/26/19 09:26 Blood Pressure 144/89 03/26/19 09:26 O2 Sat by Pulse Oximetry (%) Laboratory Tests 03/25/19 03/25/19 03/25/19 08:59 09:45 09:45 WBC RBC Hgb Hct MCV MCH MCHC RDW Plt Count MPV Sodium 132 L Potassium 4.4 Chloride 103 Carbon Dioxide 20 L Anion Gap 9 BUN 25 H Creatinine 0.8 Creat Clearance w eGFR 77.22 POC Glucometer 443 Random Glucose 426 H* Calcium 8.8 Total Bilirubin 0.5 AST 62 H ALT 90 H Alkaline Phosphatase 158 H Ammonia 128.50 H Total Protein 7.8 Albumin 2.5 L Urine Color Urine Appearance Urine pH Ur Specific [place] Urine Protein Urine Glucose (UA) Urine Ketones Urine Blood Urine Nitrite Urine Bilirubin Urine Urobilinogen Ur Leukocyte Esterase Urine WBC (Auto) Urine RBC (Auto) Urine Casts (Auto) U Epithel Cells (Auto) Urine Bacteria (Auto) Urine Yeast (Auto) 03/25/19 03/25/19 03/25/19 09:45 16:24 21:51 WBC 5.9 RBC 4.72 Hgb 13.8 Hct 41.0 MCV 86.9 MCH 29.2 MCHC 33.5 RDW 18.0 H Plt Count 194 MPV 8.5 Sodium Potassium Chloride Carbon Dioxide Anion Gap BUN Creatinine Creat Clearance w eGFR POC Glucometer 481 472 Random Glucose Calcium Total Bilirubin AST ALT Alkaline Phosphatase Ammonia Total Protein Albumin Urine Color Urine Appearance Urine pH Ur Specific [place] Urine Protein Urine Glucose (UA) Urine Ketones Urine Blood Urine Nitrite Urine Bilirubin Urine Urobilinogen Ur Leukocyte Esterase Urine WBC (Auto) Urine RBC (Auto) Urine Casts (Auto) U Epithel Cells (Auto) Urine Bacteria (Auto) Urine Yeast (Auto) 03/26/19 03/26/19 03/26/19 06:02 07:00 11:35 WBC RBC Hgb Hct MCV MCH MCHC RDW Plt Count MPV Sodium Potassium Chloride Carbon Dioxide Anion Gap BUN Creatinine Creat Clearance w eGFR POC Glucometer 316 368 Random Glucose Calcium Total Bilirubin AST ALT Alkaline Phosphatase Ammonia Total Protein Albumin Urine Color Yellow Urine Appearance Cloudy Urine pH 5.5 D Ur Specific [place] 1.020 Urine Protein 1+ H Urine Glucose (UA) 3+ H Urine Ketones Negative Urine Blood Trace Urine Nitrite Negative Urine Bilirubin Negative Urine Urobilinogen 0.2 Ur Leukocyte Esterase Negative Urine WBC (Auto) 31 Urine RBC (Auto) 33.6 Urine Casts (Auto) 1 U Epithel Cells (Auto) 2.1 Urine Bacteria (Auto) 47.9 Urine Yeast (Auto) Present aaox3 ambulating no acute distress Assessment: 03/26/19 11:46 withdrawal sx Plan: continue detox increase fluids
[2019-03-26] MEDS: THIAMINE HCL 100 MG TABLET (FP) PO SCH (23:17)
[2019-03-26] MEDS: INSULIN (LEVEMIR) 100 UNITS/ML UNITS SQ SCH (23:19)
[2019-03-27] MEDS ORDERED: INSULIN SLIDING SCALE (NOVOLOG) 1 VIAL SQ ONE ×3 (06:40→17:07)
[2019-03-27] MEDS: INSULIN (NOVOLOG) ASPART 100 UNITS/ML 10ML VIAL SQ SCH ×4 (06:41→23:23)
[2019-03-27] MEDS: chlordiazePOXIDE HCL 25 MG CAPSULE PO SCH (06:41)
[2019-03-27] MEDS: PREGABALIN 75 MG CAPSULE PO SCH (10:15)
[2019-03-27] MEDS: chlordiazePOXIDE HCL 10 MG CAPSULE PO SCH ×3 (10:15→23:24)
[2019-03-27] MEDS: PRENATAL VITAMINS W/ FOLIC ACID TABLET (FP) PO SCH (10:15)
[2019-03-27] MEDS: LISINOPRIL 10 MG TABLET (FP) PO SCH (10:15)
[2019-03-27] MEDS: PANTOPRAZOLE 40 MG TABLET (FP) PO SCH (10:15)
[2019-03-27] MEDS ORDERED: KETOCONAZOLE 2 % SHAMPOO 120 ML BOTTLE TP ONE ×2 (10:23→12:15)
--- NOTE | 2019-03-27 10:27 | PN ---
[facility] CIWA - CIWA Score Nausea/Vomitin-No Nausea/No Vomiting Muscle Tremors: 3 Anxiety: 3 Agitation: 3 Paroxysmal Sweats: 2 Orientation: 0-Oriented Tacttile Disturbances: 0-None Auditory Disturbances: 0-None Visual Disturbances: 0-None Headache: 0-None Present CIWA-Ar Total Score: 11 S Progress Note (SOAP) Subjective: sweats shakes I need a medicated shampoo for the bumps on my head Objective: 03/27/19 10:24 Vital Signs Temperature 98.1 F 03/27/19 09:55 Pulse Rate 86 03/27/19 09:55 Respiratory Rate 16 03/27/19 09:55 Blood Pressure 130/89 03/27/19 09:55 O2 Sat by Pulse Oximetry (%) Laboratory Tests 03/25/19 03/25/19 03/25/19 08:59 09:45 09:45 WBC RBC Hgb Hct MCV MCH MCHC RDW Plt Count MPV Sodium 132 L Potassium 4.4 Chloride 103 Carbon Dioxide 20 L Anion Gap 9 BUN 25 H Creatinine 0.8 Creat Clearance w eGFR 77.22 POC Glucometer 443 Random Glucose 426 H* Calcium 8.8 Total Bilirubin 0.5 AST 62 H ALT 90 H Alkaline Phosphatase 158 H Ammonia 128.50 H Total Protein 7.8 Albumin 2.5 L Urine Color Urine Appearance Urine pH Ur Specific [place] Urine Protein Urine Glucose (UA) Urine Ketones Urine Blood Urine Nitrite Urine Bilirubin Urine Urobilinogen Ur Leukocyte Esterase Urine WBC (Auto) Urine RBC (Auto) Urine Casts (Auto) U Epithel Cells (Auto) Urine Bacteria (Auto) Urine Yeast (Auto) RPR Titer 03/25/19 03/25/19 03/25/19 09:45 09:45 16:24 WBC 5.9 RBC 4.72 Hgb 13.8 Hct 41.0 MCV 86.9 MCH 29.2 MCHC 33.5 RDW 18.0 H Plt Count 194 MPV 8.5 Sodium Potassium Chloride Carbon Dioxide Anion Gap BUN Creatinine Creat Clearance w eGFR POC Glucometer 481 Random Glucose Calcium Total Bilirubin AST ALT Alkaline Phosphatase Ammonia Total Protein Albumin Urine Color Urine Appearance Urine pH Ur Specific [place] Urine Protein Urine Glucose (UA) Urine Ketones Urine Blood Urine Nitrite Urine Bilirubin Urine Urobilinogen Ur Leukocyte Esterase Urine WBC (Auto) Urine RBC (Auto) Urine Casts (Auto) U Epithel Cells (Auto) Urine Bacteria (Auto) Urine Yeast (Auto) RPR Titer Nonreactive 03/25/19 03/26/19 03/26/19 21:51 06:02 07:00 WBC RBC Hgb Hct MCV MCH MCHC RDW Plt Count MPV Sodium Potassium Chloride Carbon Dioxide Anion Gap BUN Creatinine Creat Clearance w eGFR POC Glucometer 472 316 Random Glucose Calcium Total Bilirubin AST ALT Alkaline Phosphatase Ammonia Total Protein Albumin Urine Color Yellow Urine Appearance Cloudy Urine pH 5.5 D Ur Specific [place] 1.020 Urine Protein 1+ H Urine Glucose (UA) 3+ H Urine Ketones Negative Urine Blood Trace Urine Nitrite Negative Urine Bilirubin Negative Urine Urobilinogen 0.2 Ur Leukocyte Esterase Negative Urine WBC (Auto) 31 Urine RBC (Auto) 33.6 Urine Casts (Auto) 1 U Epithel Cells (Auto) 2.1 Urine Bacteria (Auto) 47.9 Urine Yeast (Auto) Present RPR Titer 03/26/19 03/26/19 03/27/19 11:35 21:58 06:27 WBC RBC Hgb Hct MCV MCH MCHC RDW Plt Count MPV Sodium Potassium Chloride Carbon Dioxide Anion Gap BUN Creatinine Creat Clearance w eGFR POC Glucometer 368 411 299 Random Glucose Calcium Total Bilirubin AST ALT Alkaline Phosphatase Ammonia Total Protein Albumin Urine Color Urine Appearance Urine pH Ur Specific [place] Urine Protein Urine Glucose (UA) Urine Ketones Urine Blood Urine Nitrite Urine Bilirubin Urine Urobilinogen Ur Leukocyte Esterase Urine WBC (Auto) Urine RBC (Auto) Urine Casts (Auto) U Epithel Cells (Auto) Urine Bacteria (Auto) Urine Yeast (Auto) RPR Titer aaox3 ambulating no acute distress Assessment: 03/27/19 10:25 withdrawal sx dandruff/nodule to scalp noted. Pt states she had it checked out at the hospital..it was biopsy and all is fine. pt states she has been scratchin off the scap and irritating it. Pt states she need a medicated shampoo because she has tried it in the past and it works. Plan: continue detox increase fluids nizoral shampoo ordered
[2019-03-27] MEDS ORDERED: KETOCONAZOLE 2 % SHAMPOO 120 ML BOTTLE TP SCH (10:30)
[2019-03-27] MEDS ORDERED: chlordiazePOXIDE HCL 10 MG CAPSULE PO PRN (11:00)
[2019-03-27] MEDS: INSULIN (LEVEMIR) 100 UNITS/ML UNITS SQ SCH (23:22)
[2019-03-27] MEDS: THIAMINE HCL 100 MG TABLET (FP) PO SCH (23:23)
[2019-03-28] MEDS: chlordiazePOXIDE HCL 10 MG CAPSULE PO SCH ×3 (05:44→23:45)
[2019-03-28] MEDS ORDERED: INSULIN SLIDING SCALE (NOVOLOG) 1 VIAL SQ ONE ×3 (05:55→14:44)
[2019-03-28] MEDS: INSULIN (NOVOLOG) ASPART 100 UNITS/ML 10ML VIAL SQ SCH ×4 (06:04→23:45)
[2019-03-28] MEDS ORDERED: cloNIDine HCL 0.1 MG TABLET PO ONE (07:20)
--- NOTE | 2019-03-28 07:23 | PN ---
S Progress Note Note: patient's blood pressure is B/P 168/96. patient is asymptomatic Vital Signs Temperature 97.3 F L 03/28/19 07:09 Pulse Rate 93 H 03/28/19 07:09 Respiratory Rate 18 03/28/19 07:09 Blood Pressure 168/96 03/28/19 07:09 O2 Sat by Pulse Oximetry (%) Action: Clonidine 0.1mg 1 tablet oral ordered
[2019-03-28] MEDS: PREGABALIN 75 MG CAPSULE PO SCH (11:19)
[2019-03-28] MEDS: PRENATAL VITAMINS W/ FOLIC ACID TABLET (FP) PO SCH (11:19)
[2019-03-28] MEDS: LISINOPRIL 10 MG TABLET (FP) PO SCH (11:19)
[2019-03-28] MEDS: PANTOPRAZOLE 40 MG TABLET (FP) PO SCH (11:20)
--- NOTE | 2019-03-28 13:42 | PN ---
S CIWA - CIWA Score Nausea/Vomitin-No Nausea/No Vomiting Muscle Tremors: None Anxiety: 0-No Anxiety, at Ease Agitation: 2 Paroxysmal Sweats: No Perspiration Orientation: 0-Oriented Tacttile Disturbances: 2-Mild Itch/Numbness/Burn Auditory Disturbances: 0-None Visual Disturbances: 0-None Headache: 0-None Present CIWA-Ar Total Score: 4 [facility] Progress Note (SOAP) Subjective: patient c/o mild restlessness and numbness/tingling to extremities. Patient has hx of DM. Objective: 03/28/19 13:40 Laboratory Tests 03/25/19 03/25/19 03/25/19 08:59 09:45 09:45 WBC RBC Hgb Hct MCV MCH MCHC RDW Plt Count MPV Sodium 132 L Potassium 4.4 Chloride 103 Carbon Dioxide 20 L Anion Gap 9 BUN 25 H Creatinine 0.8 Creat Clearance w eGFR 77.22 POC Glucometer 443 Random Glucose 426 H* Calcium 8.8 Total Bilirubin 0.5 AST 62 H ALT 90 H Alkaline Phosphatase 158 H Ammonia 128.50 H Total Protein 7.8 Albumin 2.5 L Urine Color Urine Appearance Urine pH Ur Specific [place] Urine Protein Urine Glucose (UA) Urine Ketones Urine Blood Urine Nitrite Urine Bilirubin Urine Urobilinogen Ur Leukocyte Esterase Urine WBC (Auto) Urine RBC (Auto) Urine Casts (Auto) U Epithel Cells (Auto) Urine Bacteria (Auto) Urine Yeast (Auto) RPR Titer 03/25/19 03/25/19 03/25/19 09:45 09:45 16:24 WBC 5.9 RBC 4.72 Hgb 13.8 Hct 41.0 MCV 86.9 MCH 29.2 MCHC 33.5 RDW 18.0 H Plt Count 194 MPV 8.5 Sodium Potassium Chloride Carbon Dioxide Anion Gap BUN Creatinine Creat Clearance w eGFR POC Glucometer 481 Random Glucose Calcium Total Bilirubin AST ALT Alkaline Phosphatase Ammonia Total Protein Albumin Urine Color Urine Appearance Urine pH Ur Specific [place] Urine Protein Urine Glucose (UA) Urine Ketones Urine Blood Urine Nitrite Urine Bilirubin Urine Urobilinogen Ur Leukocyte Esterase Urine WBC (Auto) Urine RBC (Auto) Urine Casts (Auto) U Epithel Cells (Auto) Urine Bacteria (Auto) Urine Yeast (Auto) RPR Titer Nonreactive 03/25/19 03/26/19 03/26/19 21:51 06:02 07:00 WBC RBC Hgb Hct MCV MCH MCHC RDW Plt Count MPV Sodium Potassium Chloride Carbon Dioxide Anion Gap BUN Creatinine Creat Clearance w eGFR POC Glucometer 472 316 Random Glucose Calcium Total Bilirubin AST ALT Alkaline Phosphatase Ammonia Total Protein Albumin Urine Color Yellow Urine Appearance Cloudy Urine pH 5.5 D Ur Specific [place] 1.020 Urine Protein 1+ H Urine Glucose (UA) 3+ H Urine Ketones Negative Urine Blood Trace Urine Nitrite Negative Urine Bilirubin Negative Urine Urobilinogen 0.2 Ur Leukocyte Esterase Negative Urine WBC (Auto) 31 Urine RBC (Auto) 33.6 Urine Casts (Auto) 1 U Epithel Cells (Auto) 2.1 Urine Bacteria (Auto) 47.9 Urine Yeast (Auto) Present RPR Titer 03/26/19 03/26/19 03/27/19 11:35 21:58 06:27 WBC RBC Hgb Hct MCV MCH MCHC RDW Plt Count MPV Sodium Potassium Chloride Carbon Dioxide Anion Gap BUN Creatinine Creat Clearance w eGFR POC Glucometer 368 411 299 Random Glucose Calcium Total Bilirubin AST ALT Alkaline Phosphatase Ammonia Total Protein Albumin Urine Color Urine Appearance Urine pH Ur Specific [place] Urine Protein Urine Glucose (UA) Urine Ketones Urine Blood Urine Nitrite Urine Bilirubin Urine Urobilinogen Ur Leukocyte Esterase Urine WBC (Auto) Urine RBC (Auto) Urine Casts (Auto) U Epithel Cells (Auto) Urine Bacteria (Auto) Urine Yeast (Auto) RPR Titer 03/27/19 03/27/19 03/28/19 11:30 16:28 05:49 WBC RBC Hgb Hct MCV MCH MCHC RDW Plt Count MPV Sodium Potassium Chloride Carbon Dioxide Anion Gap BUN Creatinine Creat Clearance w eGFR POC Glucometer 448 564 466 Random Glucose Calcium Total Bilirubin AST ALT Alkaline Phosphatase Ammonia Total Protein Albumin Urine Color Urine Appearance Urine pH Ur Specific [place] Urine Protein Urine Glucose (UA) Urine Ketones Urine Blood Urine Nitrite Urine Bilirubin Urine Urobilinogen Ur Leukocyte Esterase Urine WBC (Auto) Urine RBC (Auto) Urine Casts (Auto) U Epithel Cells (Auto) Urine Bacteria (Auto) Urine Yeast (Auto) RPR Titer 03/28/19 11:44 WBC RBC Hgb Hct MCV MCH MCHC RDW Plt Count MPV Sodium Potassium Chloride Carbon Dioxide Anion Gap BUN Creatinine Creat Clearance w eGFR POC Glucometer > 600 Random Glucose Calcium Total Bilirubin AST ALT Alkaline Phosphatase Ammonia Total Protein Albumin Urine Color Urine Appearance Urine pH Ur Specific [place] Urine Protein Urine Glucose (UA) Urine Ketones Urine Blood Urine Nitrite Urine Bilirubin Urine Urobilinogen Ur Leukocyte Esterase Urine WBC (Auto) Urine RBC (Auto) Urine Casts (Auto) U Epithel Cells (Auto) Urine Bacteria (Auto) Urine Yeast (Auto) RPR Titer Vital Signs Temperature 97.6 F 03/28/19 09:42 Pulse Rate 98 H 03/28/19 09:42 Respiratory Rate 18 03/28/19 09:42 Blood Pressure 154/91 03/28/19 09:42 O2 Sat by Pulse Oximetry (%) pe: alert and oriented x 3 +perrla, eoms intact ext full rom, no visible tremors pacing in hallway Assessment: 03/28/19 13:41 withdrawal sx dm with hyperglycemia Plan: continue detox encourage fluids insulin given as per sliding scale bgm ac/hs continue to monitor clinically
[2019-03-28] MEDS ORDERED: INSULIN (NOVOLOG) ASPART 100 UNITS/ML 10ML VIAL SQ ONE (14:18)
--- NOTE | 2019-03-28 14:20 | PN ---
[facility] Progress Note Note: blood sugar 585. 8 units of novolog ordered x one.
[2019-03-28 18:01] VITALS: TEMP 97.7
[2019-03-28] MEDS: INSULIN (LEVEMIR) 100 UNITS/ML UNITS SQ SCH (23:15)
--- NOTE | 2019-03-28 23:26 | PN ---
[facility] Progress Note Note: I was notified by the nurse Jeff Jimmie that patient was unresponsive to tactile stimuli. Patient has a history of alcoholic cirrhosis and has been in ER multiple visits for elevated ammonia level/hepatic encephalpathy. Patient's blood sugar level was initially 408mg/dl and blood pressure was B/P 145/100. Oxygen 2l/min via nasal cannula initiated. Patient is unresponsive to sternal rub. Laboratory Last Values WBC 5.9 K/mm3 (4.0-10.0) 03/25/19 09:45 RBC 4.72 M/mm3 (3.60-5.2) 03/25/19 09:45 Hgb 13.8 GM/dL (10.7-15.3) 03/25/19 09:45 Hct 41.0 % (32.4-45.2) 03/25/19 09:45 MCV 86.9 fl (80-96) 03/25/19 09:45 MCH 29.2 pg (25.7-33.7) 03/25/19 09:45 MCHC 33.5 g/dl (32.0-36.0) 03/25/19 09:45 RDW 18.0 % (11.6-15.6) H 03/25/19 09:45 Plt Count 194 K/MM3 (134-434) 03/25/19 09:45 MPV 8.5 fl (7.5-11.1) 03/25/19 09:45 Sodium 132 mmol/L (136-145) L 03/25/19 09:45 Potassium 4.4 mmol/L (3.5-5.1) 03/25/19 09:45 Chloride 103 mmol/L (98-107) 03/25/19 09:45 Carbon Dioxide 20 mmol/L (21-32) L 03/25/19 09:45 Anion Gap 9 MMOL/L (8-16) 03/25/19 09:45 BUN 25 mg/dL (7-18) H 03/25/19 09:45 Creatinine 0.8 mg/dL (0.55-1.3) 03/25/19 09:45 Creat Clearance w eGFR 77.22 (>60) 03/25/19 09:45 POC Glucometer 372 UNITS (80-120) 03/28/19 23:12 Random Glucose 426 mg/dL (74-106) H* 03/25/19 09:45 Calcium 8.8 mg/dL (8.5-10.1) 03/25/19 09:45 Total Bilirubin 0.5 mg/dL (0.2-1) 03/25/19 09:45 AST 62 U/L (15-37) H 03/25/19 09:45 ALT 90 U/L (13-61) H 03/25/19 09:45 Alkaline Phosphatase 158 U/L (45-117) H 03/25/19 09:45 Ammonia 128.50 umol/L (11-32) H 03/25/19 09:45 Total Protein 7.8 g/dl (6.4-8.2) 03/25/19 09:45 Albumin 2.5 g/dl (3.4-5.0) L 03/25/19 09:45 Urine Color Yellow 03/26/19 07:00 Urine Appearance Cloudy 03/26/19 07:00 Urine pH 5.5 (5.0-8.0) D 03/26/19 07:00 Ur Specific [place] 1.020 (1.010-1.035) 03/26/19 07:00 Urine Protein 1+ (NEGATIVE) H 03/26/19 07:00 Urine Glucose (UA) 3+ (NEGATIVE) H 03/26/19 07:00 Urine Ketones Negative (NEGATIVE) 03/26/19 07:00 Urine Blood Trace (NEGATIVE) 03/26/19 07:00 Urine Nitrite Negative (NEGATIVE) 03/26/19 07:00 Urine Bilirubin Negative (NEGATIVE) 03/26/19 07:00 Urine Urobilinogen 0.2 mg/dL (0.2-1.0) 03/26/19 07:00 Ur Leukocyte Esterase Negative (NEGATIVE) 03/26/19 07:00 Urine WBC (Auto) 31 /hpf (0-5) 03/26/19 07:00 Urine RBC (Auto) 33.6 /hpf (0-4) 03/26/19 07:00 Urine Casts (Auto) 1 /lpf (0-8) 03/26/19 07:00 U Epithel Cells (Auto) 2.1 /HPF (0-5/HPF) 03/26/19 07:00 Urine Bacteria (Auto) 47.9 /hpf (NEGATIVE) 03/26/19 07:00 Urine Yeast (Auto) Present (NEGATIVE) 03/26/19 07:00 RPR Titer Nonreactive (NONREACTIVE) 03/25/19 09:45 911 was called and patient is being transferred to ER for further evaluation. Vital Signs Temperature 97.7 F 03/28/19 22:09 Pulse Rate 76 03/28/19 22:09 Respiratory Rate 14 03/28/19 22:09 Blood Pressure 134/92 03/28/19 22:09 O2 Sat by Pulse Oximetry (%)
[2019-03-28 23:30] VITALS: BP 134/92; PULSE 76
[2019-03-28] MEDS: THIAMINE HCL 100 MG TABLET (FP) PO SCH (23:45)
== END 2019-03-28 23:35 | disposition short-term general hospital (02) | DRG 897 ==
LOC: YASAS 08:07 → Y6N 09:25
PROVIDERS: ADMIT Surgery; ATTEND Surgery
PROC: HZ2ZZZZ Detoxification Services for Substance Abuse Treatment (ICD-10-PCS; principal; 2019-03-25)
DX: F10.230 Alcohol dependence with withdrawal, uncomplicated (principal); F14.20 Cocaine dependence, uncomplicated; G62.9 Polyneuropathy, unspecified; I10 Essential (primary) hypertension; E10.65 Type 1 diabetes mellitus with hyperglycemia; Z79.4 Long term (current) use of insulin; K21.9 Gastro-esophageal reflux disease without esophagitis; Z91.013 Allergy to seafood
CPT/HCPCS: 36415; 80053; 81003; 82140; 82962; 85027; 86593; J0735

== ENCOUNTER 2019-03-28 23:49 | Inpatient (IN) | payer OTHER ==
[2019-03-29 00:18] VITALS: BMI 29.0
--- NOTE | 2019-03-29 00:23 | PDOC ---
History of Present Illness <Charlotte Alex - Last Filed: 03/29/19 02:54> - History of Present Illness Initial Comments: 03/29/19 01:07 The patient is a 48 year old female with a history of HTN, DM, Alcohol abuse, Cocaine abuse who presents for evaluation of AMS. The patient is currently in detox for alcohol and was found to be altered and lethargic after eating dinner. She was noted to be hyperglycemic to 500s and was given 8 units of insulin, but continued to remain altered and lethargic prompting her presentation to the ED for further evaluation. On presentation to the ED, the patient is only responsive to painful stimulus, but otherwise does not answer questions or participate in history. ROS is unobtainable due to altered mental status. <Jagjit Spicer - Last Filed: 03/29/19 04:06> - General Chief Complaint: Altered Mental Status Stated Complaint: ALTERED MENTAL STATUS Time Seen by Provider: 03/29/19 00:18 Past History <Charlotte Alex - Last Filed: 03/29/19 02:54> - Past Medical History Anemia: No Asthma: No Cancer: No Cardiac Disorders: No CVA: No COPD: No CHF: No DVT: No Dementia: No Diabetes: Yes (iddm) GI Disorders: No Disorders: No HTN: Yes (on med) Hypercholesterolemia: No Kidney Stones: No Liver Disease: No Seizures: No Thyroid Disease: No - Surgical History Abdominal Surgery: Yes (TUBAL LIGATION IN 2005) Appendectomy: Yes (10/25/17) Cardiac Surgery: No Cholecystectomy: Yes (lap ) Lung Surgery: No Neurologic Surgery: No Orthopedic Surgery: Yes (neck, 11/30/2015 (fall);SX COCYX DUE TO OSTEOMYLITIS- 2010) - Reproductive History PID: No - Immunization History Immunization Up to Date: No - Suicide/Smoking/Psychosocial Hx Smoking History: Unknown if ever smoked Have you smoked in the past 12 months: No Number of Cigarettes Smoked Daily: 0 Cigars Per Day: 0 'Breaking Loose' booklet given: 05/30/16 Hx Alcohol Use: Yes Drug/Substance Use Hx: Yes Substance Use Type: Alcohol, Cocaine Hx Substance Use Treatment: Yes (rehab 01/17/19 to 01/28/19 [facility]) <Jagjit Spicer - Last Filed: 03/29/19 04:06> - Past Medical History Allergies/Adverse Reactions: Allergies Allergy/AdvReac Type Severity Reaction Status Date / Time fish derived Allergy Severe Swelling Verified 03/25/19 08:33 shellfish derived Allergy Severe Swelling Verified 03/25/19 08:33 No Known Drug Allergies Allergy Verified 03/25/19 08:33 SEAFOOD Allergy Severe Swelling Uncoded 03/25/19 08:33 Home Medications: Ambulatory Orders Esomeprazole Magnesium [Nexium 24Hr] 40 mg PO DAILY 11/09/18 Lisinopril [Prinivil] 10 mg PO DAILY 30 Days #30 tablet 11/17/18 Pregabalin [Lyrica] 150 mg PO DAILY #45 capsule MDD 150mg 11/17/18 Insulin Glargine,Hum.rec.anlog [Lantus Solostar PEN (NF)] 45 units SQ HS Review of Systems - Review of Systems Able to Perform ROS?: No (Altered Mental Status) <Jagjit Spicer - Last Filed: 03/29/19 04:06> *Physical Exam - Vital Signs Last Vital Signs Temp Pulse Resp BP Pulse Ox 96.9 F L 72 17 138/84 98 03/28/19 23:58 03/28/19 23:58 03/28/19 23:58 03/28/19 23:58 03/28/19 23:58 <Charlotte Alex - Last Filed: 03/29/19 02:54> - Vital Signs Last Vital Signs Temp Pulse Resp BP Pulse Ox 96.9 F L 72 17 138/84 98 03/28/19 23:58 03/28/19 23:58 03/28/19 23:58 03/28/19 23:58 03/28/19 23:58 - Physical Exam Comments: 03/29/19 01:11 General Appearance: Nourished. No Apparent Distress HEENT: EOMI, HIGINIO. No Pharyngeal Erythema, Tonsillar Exudate, Tonsillar Erythema Neck: No Cervical Lymphadenopathy Respiratory/Chest: Lungs Clear, Normal Breath Sounds. No Crackles, Rales, Rhonchi, Wheezing Cardiovascular: Regular Rhythm, Regular Rate. No Murmur, Gallops, Rubs Gastrointestinal/Abdominal: Normal Bowel Sounds, Soft. No Guarding, Rebound, Tenderness Musculoskeletal: No CVA Tenderness Extremity: Normal Capillary Refill Integumentary: Normal Color, Dry, Warm Neurologic: Lethargic. Arouses to sternal rub. Moves all extremities equally. <Jagjit Spicer - Last Filed: 03/29/19 04:06> ED Treatment Course - LABORATORY CBC & Chemistry Diagram: 03/29/19 00:45 03/29/19 00:45 - RADIOLOGY Radiology Studies Ordered: Category Date Time Status HEAD CT WITHOUT CONTRAST [CT] Stat CT Scan 03/29/19 00:23 Ordered <Charlotte Alex - Last Filed: 03/29/19 02:54> - LABORATORY CBC & Chemistry Diagram: 03/29/19 00:45 03/29/19 00:45 <Jagjit Spicer - Last Filed: 03/29/19 04:06> Medical Decision Making - Medical Decision Making 03/29/19 02:54 Patient Name: YANICK ANGELO THIS IS A PRELIMINARY REPORT FROM [facility] DATE OF SERVICE: 2019-03-29 01:56:11 IMAGES: [id number] EXAM: HEAD CT WITHOUT CONTRAST HISTORY: Mental status changes COMPARISON: None. FINDINGS: The ventricular system is midline and nondilated. Mild cortical atrophy is noted.. There is no bleed, mass, extra-axial fluid collection or mass effect. No skull fracture or skull lesion is identified. The visualized paranasal sinuses and mastoid air cells are clear. Status post upper cervical spine surgery, including visualized. IMPRESSION: No acute pathology. <Charlotte Alex - Last Filed: 03/29/19 02:54> - Medical Decision Making 03/29/19 01:11 The patient is a 48 year old female with a history of HTN, DM, Alcohol abuse, Cocaine abuse who presents for evaluation of AMS. Differential includes but is not limited to: Hepatic Encephalopathy, Intracranial process, DKA, Infectious, Metabolic derangement, Toxic ingestion. Given the patient's history and physical exam, we will obtain a cbc, cmp, alcohol level, tylenol level, aspirin level, ammonia level, serum preg, acetone to evaluate further. We will treat with iv fluids and continue to monitor and reassess while here in the ED. Finger stick here in the ED is 360. 03/29/19 04:03 CBC, cmp are unremarkable. Ammonia level is elevated to 261 which is increased from 4 days ago when it was 128. Serum preg is negative. Head CT is unremarkable as preliminarily read by our correctional classification counselor radiologist. It is likely the patient's symptoms are due to a Hepatic Encephalopathy given her elevated ammonia level and lethargy. Given the patient's significant lethargy, we discussed the case with the ICU team regarding more close monitoring for concern of airway compromise in the setting of the patient being increasingly obtunded with a raising ammonia level. The ICU team accepted the patient for ICU monitoring. We discussed the case with the admitting team who accepted the patient for admission. <Jagjit Spicer - Last Filed: 03/29/19 04:06> *DC/Admit/Observation/Transfer <Charlotte Alex - Last Filed: 03/29/19 02:54> - Discharge Dispostion Decision to Admit order: Yes <Jagjit Spicer - Last Filed: 03/29/19 04:06> Diagnosis at time of Disposition: Elevated glucose level, Alcohol dependence with uncomplicated withdrawal, Increased ammonia level Altered mental status Qualifiers: Altered mental status type: unspecified Qualified Code(s): R41.82 - Altered mental status, unspecified - Discharge Dispostion Condition at time of disposition: Stable
[2019-03-29] MEDS ORDERED: SODIUM CHLORIDE 1,000 ML IV STA (00:24)
[2019-03-29 01:22] LABS: HEMATOCRIT 38.2 % (32.4-45.2); HEMOGLOBIN 13.1 GM/dL (10.7-15.3); LYMPH % 44.4 % (8-40); MCH 29.4 pg (25.7-33.7); MCHC 34.1 g/dl (32.0-36.0); MEAN PLT VOLUME 8.6 fl (7.5-11.1); MONO % 8.6 % (3.8-10.2); PLATELET COUNT 202 K/MM3 (134-434); RBC 4.45 M/mm3 (3.60-5.2); RDW 17.3 % (11.6-15.6); WHITE BLOOD COUNT 4.8 K/mm3 (4.0-10.0)
[2019-03-29] MEDS ORDERED: MAGNESIUM SULF 50% (8.12 MEQ/2 ML-1 GM VIAL) IVPB ONE (01:36)
[2019-03-29] MEDS ORDERED: MAGNESIUM 1GM/D5W - 2 GM/200 ML IVPB IVPB ONE (01:41)
[2019-03-29 01:53] LABS: ALBUMIN 2.2 g/dl (3.4-5.0); ALK PHOS 276 U/L (45-117); ANION GAP 7 MMOL/L (8-16); BILIRUBIN,TOTAL 0.2 mg/dL (0.2-1); BLOOD UREA NITROGEN 16 mg/dL (7-18); CALCIUM 9.1 mg/dL (8.5-10.1); CHLORIDE 109 mmol/L (98-107); CO2 22 mmol/L (21-32); CREATININE 0.7 mg/dL (0.55-1.3); POTASSIUM 4.5 mmol/L (3.5-5.1); SGOT/AST 51 U/L (15-37); SGPT/ALT 98 U/L (13-61); SODIUM 138 mmol/L (136-145); TOT PROT 7.2 g/dl (6.4-8.2)
[2019-03-29 01:55] LABS: GLUCOSE,RANDOM 377 mg/dL (74-106)
--- NOTE | 2019-03-29 03:45 | HP ---
Admitting History and Physical - Primary Care Physician PCP: Domo Monge - Admission Chief Complaint: AMS History of Present Illness: This is a 48 y/o woman from [facility] with a past medical history of Alcohol Abuse, Cocaine Abuse, Cirrhosis, MS (2018), HTN, DM. Who presents to the ED obtunded. Per the ED records: The patient is currently in detox for alcohol and was found to be altered and lethargic after eating dinner. She was noted to be hyperglycemic to 500s and was given 8 units of insulin, but continued to remain altered and lethargic prompting her presentation to the ED for further evaluation. On presentation to the ED, the patient is only responsive to painful stimulus, but otherwise does not answer questions or participate in history. History Source: Medical Record, Transfer Record Limitations to Obtaining History: Clinical Condition - Past Medical History Cardiovascular: Yes: HTN Gastrointestinal: Yes: GERD Hepatobiliary: Yes: Cirrhosis (Alcoholic cirrhosis with history of TIPS for intractible ascites), Other (REFRACTORY ASCITES AND CIRRHOSIS, HEP B/ C NEG PER PATIENT) ...LMP: 12/15/18 Psych: Yes: Addictions (alcohol abuse), Other (Substance abuse) Endocrine: Yes: Diabetes Mellitus - Past Surgical History Past Surgical History: Yes: Cholecystectomy, Tubal Ligation - Smoking History Smoking history: Unknown if ever smoked Have you smoked in the past 12 months: No Aproximately how many cigarettes per day: 0 - Alcohol/Substance Use Hx Alcohol Use: Yes History of Substance Use: reports: Cocaine, Prescription (history of poly substance abuse an has a prescription bottle of pills that are not hers) - Social History ADL: Independent Occupation: disabled History of Recent Travel: No Home Medications - Allergies Allergies/Adverse Reactions: Allergies Allergy/AdvReac Type Severity Reaction Status Date / Time fish derived Allergy Severe Swelling Verified 03/25/19 08:33 shellfish derived Allergy Severe Swelling Verified 03/25/19 08:33 No Known Drug Allergies Allergy Verified 03/25/19 08:33 SEAFOOD Allergy Severe Swelling Uncoded 03/25/19 08:33 - Home Medications Home Medications: Ambulatory Orders Esomeprazole Magnesium [Nexium 24Hr] 40 mg PO DAILY 11/09/18 Lisinopril [Prinivil] 10 mg PO DAILY 30 Days #30 tablet 11/17/18 Pregabalin [Lyrica] 150 mg PO DAILY #45 capsule MDD 150mg 11/17/18 Insulin Glargine,Hum.rec.anlog [Lantus Solostar PEN (NF)] 45 units SQ HS Family Disease History - Family Disease History Family Disease History: Diabetes: Grandparent (alcohol), Father (alive: 68: HTN) , Mother (alive: 67), Other: Grandparent, Father, Mother Review of Systems Unable to obtain ROS, reason: Obtunded Physical Examination Vital Signs: Vital Signs Temperature 96.9 F L 03/28/19 23:58 Pulse Rate 72 03/28/19 23:58 Respiratory Rate 17 03/28/19 23:58 Blood Pressure 138/84 03/28/19 23:58 O2 Sat by Pulse Oximetry (%) 98 03/28/19 23:58 Constitutional: Yes: Other (Obtunded, minimal response to sternal rub) Eyes: Yes: Conjunctiva Clear, PERRL (sluggish) HENT: Yes: WNL, Atraumatic, Normocephalic Neck: Yes: WNL, Supple, Trachea Midline Cardiovascular: Yes: WNL, Regular Rate and Rhythm, S1, S2 Respiratory: Yes: Diminished, On Nasal O2 Gastrointestinal: Yes: Soft, Abdomen, Obese Renal/: Yes: Incontinence Breast(s): Yes: WNL Musculoskeletal: Yes: WNL Extremities: Yes: WNL Edema: No Peripheral Pulses WNL: Yes 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: Yes: Unresponsive Labs: CBC, BMP 03/29/19 00:45 03/29/19 00:45 Laboratory Results - last 24 hr 03/29/19 03/29/19 03/29/19 00:45 00:45 00:45 WBC 4.8 RBC 4.45 Hgb 13.1 Hct 38.2 MCV 86.0 MCH 29.4 MCHC 34.1 RDW 17.3 H Plt Count 202 MPV 8.6 Absolute Neuts (auto) 2.2 Neutrophils % 47.0 Lymphocytes % 44.4 H Monocytes % 8.6 Eosinophils % 0.0 Basophils % 0.0 Nucleated RBC % 0 Anticoagulation Therapy Puncture Site ABG pH ABG pCO2 at Pt Temp ABG pO2 at Pt Temp ABG HCO3 ABG O2 Sat (Measured) ABG O2 Content ABG Base Excess Giovanni Test Carboxyhemoglobin Methemoglobin O2 Delivery Device Oxygen Flow Rate Vent Mode Vent Rate Mechanical Rate Pressure Support Vent Sodium 138 Potassium 4.5 Chloride 109 H Carbon Dioxide 22 Anion Gap 7 L BUN 16 Creatinine 0.7 Creat Clearance w eGFR 90.09 POC Glucometer Random Glucose 377 H* Calcium 9.1 Total Bilirubin 0.2 AST 51 H ALT 98 H Alkaline Phosphatase 276 H Ammonia Total Protein 7.2 Albumin 2.2 L Serum , Qual Negative Salicylates Acetaminophen Alcohol, Quantitative Acetone, Qual 03/29/19 03/29/19 03/29/19 00:45 00:45 00:45 WBC RBC Hgb Hct MCV MCH MCHC RDW Plt Count MPV Absolute Neuts (auto) Neutrophils % Lymphocytes % Monocytes % Eosinophils % Basophils % Nucleated RBC % Anticoagulation Therapy Puncture Site ABG pH ABG pCO2 at Pt Temp ABG pO2 at Pt Temp ABG HCO3 ABG O2 Sat (Measured) ABG O2 Content ABG Base Excess Giovanni Test Carboxyhemoglobin Methemoglobin O2 Delivery Device Oxygen Flow Rate Vent Mode Vent Rate Mechanical Rate Pressure Support Vent Sodium Potassium Chloride Carbon Dioxide Anion Gap BUN Creatinine Creat Clearance w eGFR POC Glucometer Random Glucose Calcium Total Bilirubin AST ALT Alkaline Phosphatase Ammonia 261.30 H Total Protein Albumin Serum , Qual Salicylates < 1.7 L Acetaminophen < 1.7 L Alcohol, Quantitative < 3.0 Acetone, Qual Negative L 03/29/19 03/29/19 03/29/19 01:10 04:23 05:02 WBC RBC Hgb Hct MCV MCH MCHC RDW Plt Count MPV Absolute Neuts (auto) Neutrophils % Lymphocytes % Monocytes % Eosinophils % Basophils % Nucleated RBC % Anticoagulation Therapy No Result Required. Puncture Site Right radial ABG pH 7.46 H ABG pCO2 at Pt Temp 30.4 L ABG pO2 at Pt Temp 91.5 ABG HCO3 21.2 L ABG O2 Sat (Measured) 97.5 ABG O2 Content 16.6 ABG Base Excess -1.4 Giovanni Test Positive Carboxyhemoglobin 1.3 Methemoglobin 0.1 O2 Delivery Device No Result Required. Oxygen Flow Rate No Vent Mode No Result Required. Vent Rate No Result Required. Mechanical Rate No Result Required. Pressure Support Vent No Result Required. Sodium Potassium Chloride Carbon Dioxide Anion Gap BUN Creatinine Creat Clearance w eGFR POC Glucometer 360 306 Random Glucose Calcium Total Bilirubin AST ALT Alkaline Phosphatase Ammonia Total Protein Albumin Serum , Qual Salicylates Acetaminophen Alcohol, Quantitative Acetone, Qual Current Medications Generic Name Dose Route Start Last Admin Trade Name Freq PRN Reason Stop Dose Admin Chlorhexidine Gluconate 1 applic 03/29/19 22:00 Hibiclens For Decolonization - TP HS SIRIA Lactated Ringer's 1,000 ml in 1,000 mls @ 100 mls/hr 03/29/19 04:30 03/29/19 05:09 Lactated Ringers Solution IV 100 mls/hr ASDIR SIRIA Administration Insulin Aspart 1 vial 03/29/19 04:30 03/29/19 05:10 Novolog Vial Sliding Scale - SQ 8 units Q4HWA SIRIA Administration Protocol Lactulose 200 gm 03/29/19 06:00 Cephulac (Rectal Use) IN TID SIRIA Mupirocin 1 applic 03/29/19 10:00 Bactroban Ointment (For Decolonization) - NS 04/03/19 09:59 BID SIRIA Imaging - Results Chest X-ray: Pending Cat Scan: Image Reviewed EKG: Image Reviewed Problem List - Problems (1) Acute hepatic encephalopathy Assessment/Plan: Likely secondary to Cirrhosis vs Benzos Admit to ICU [place] Classification System- Grade 4 Ammonia 261 AST/ALT/Alk Phos- 51/98/[address]- neg ICH ABG-pending Chest Xray-pending Lactulose pr Appreciate Wrap Checker consult O2 Consider Intubation if condition worsens Monitor CBC, BMP Aspiration Precautions Fall Precautions Seizure Precautions Code(s): K72.00 - ACUTE AND SUBACUTE HEPATIC FAILURE WITHOUT COMA (2) Altered mental status Assessment/Plan: See above Code(s): R41.82 - ALTERED MENTAL STATUS, UNSPECIFIED Qualifiers: Altered mental status type: unspecified Qualified Code(s): R41.82 - Altered mental status, unspecified (3) Increased ammonia level Assessment/Plan: Likely secondary to Cirrhosis Lactulose pr Monitor BMP Trend Ammonia Level Continue cardiac monitoring O2 Code(s): R79.89 - OTHER SPECIFIED ABNORMAL FINDINGS OF BLOOD CHEMISTRY (4) Diabetes mellitus, insulin dependent (IDDM), uncontrolled Assessment/Plan: Likely secondary to non-compliance BGMs ISS NPO for now HgbA1c in am Monitor renal function Code(s): E10.65 - TYPE 1 DIABETES MELLITUS WITH HYPERGLYCEMIA Qualifiers: Glycemic state: with hyperglycemia Qualified Code(s): E10.65 - Type 1 diabetes mellitus with hyperglycemia (5) Chronic liver disease and cirrhosis Assessment/Plan: Appreciate GI consult Avoid Hepatotoxic drugs Monitor LFTs Liver US PT/INR, PTT in am Code(s): K74.60 - UNSPECIFIED CIRRHOSIS OF LIVER; K76.9 - LIVER DISEASE, UNSPECIFIED (6) Alcohol dependence with uncomplicated withdrawal Assessment/Plan: Continue Detox outpatient upon d/c Monitor closely Seizure Precautions Will treat with interventions accordingly Code(s): F10.230 - ALCOHOL DEPENDENCE WITH WITHDRAWAL, UNCOMPLICATED (7) Cocaine dependence Assessment/Plan: Continue detox outpatient upon d/c Code(s): F14.20 - COCAINE DEPENDENCE, UNCOMPLICATED Qualifiers: (8) Hypertension Assessment/Plan: stable Monitor BP Avoid BB secondary to Cocaine Abuse hx Consider Clonidine Code(s): I10 - ESSENTIAL (PRIMARY) HYPERTENSION Qualifiers: Hypertension type: essential hypertension Qualified Code(s): I10 - Essential (primary) hypertension (9) GERD (gastroesophageal reflux disease) Assessment/Plan: PPI Code(s): K21.9 - GASTRO-ESOPHAGEAL REFLUX DISEASE WITHOUT ESOPHAGITIS Qualifiers: Esophagitis presence: without esophagitis Qualified Code(s): K21.9 - Gastro -esophageal reflux disease without esophagitis (10) History of MS (myocardial infarction) Assessment/Plan: EKG reviewed Continue with interventions accordingly Code(s): I25.2 - OLD MYOCARDIAL INFARCTION (11) Nicotine dependence Assessment/Plan: Nicoderm Patch Code(s): F17.200 - NICOTINE DEPENDENCE, UNSPECIFIED, UNCOMPLICATED Qualifiers: Nicotine product type: cigarettes Substance use status: uncomplicated Qualified Code(s): F17.210 - Nicotine dependence, cigarettes, uncomplicated Assessment/Plan This is a 48 y/o woman with a PMHx of: Alcohol Abuse, Cocaine Abuse, MS (2018), HTN, HLD, DM, Chronic Liver Cirrhosis. Admitted to ICU for Acute Hepatic Encephalopathy, Hyperammonemia, Uncontrolled Diabetes Mellitus for further evaluation of their emergent condition. Plan: See Problem List FEN LR@100ml/hr Replete lytes NPO DVT ppx SCDs Heparin SQ Code Status: Full Code Dispo: Requires Inpatient Care Visit type - Emergency Visit Emergency Visit: Yes ED Registration Date: 03/28/19 Care time: The patient presented to the Emergency Department on the above date and was hospitalized for further evaluation of their emergent condition. - New Patient This patient is new to me today: Yes Date on this admission: 03/29/19 - Critical Care Critical Care patient: Yes Total Critical Care Time (in minutes): 35 Critical Care Statement: The care of this patient involved high complexity decision making to prevent further life threatening deterioration of the patient 's condition and/or to evaluate & treat vital organ system(s) failure or risk of failure.
--- NOTE | 2019-03-29 04:01 | PDOC ---
Documentation entered by Jagjit Meyer SCRIBE, acting as scribe for Charlotte Alex MD. Charlotte Alex MD: This documentation has been prepared by the Mitch cuello Daniel, SCRIBE, under my direction and personally reviewed by me in its entirety. I confirm that the documentation accurately reflects all work, treatment, procedures, and medical decision making performed by me. Attending Attestation - Resident Resident Name: Jagjit Spicer - ED Attending Attestation I have performed the following: I have examined & evaluated the patient, The case was reviewed & discussed with the resident, I agree w/resident's findings & plan - HPI HPI: 03/29/19 01:35 The patient is a 48 year old female with a past medical history of HTN, diabetes , and alcohol and cocaine abuse here today from [facility] for evaluation of unresponsiveness. The patient was at [facility] for alcohol detox and was found to have a blood sugar in the 500's after dinner. She was given insulin and was found lethargic and unresponsive later on. Patient denies headache, lightheadedness. Denies fever, chills. Denies chest pain, shortness of breath. Denies nausea, vomiting, diarrhea, abdominal pain. Allergies: fish derived, shellfish derived - Physicial Exam PE: 03/29/19 02:37 Agree with resident exam. Pt has decreased level of consciousness and she is sleeping. She is slightly arousable, but she is not opening her eyes and making eye contact or answeing questions.Pt was found this way in [facility]; unknown how long she was in this state. - Medical Decision Making 03/29/19 02:38 Labs normal; glc elevated. Pt has normal EKG CXR pending Head CT appears normal; result pending. 03/29/19 04:47 Patient Name: YANICK ANGELO THIS IS A PRELIMINARY REPORT FROM [facility] DATE OF SERVICE: 2019-03-29 01:56:11 IMAGES: 174 EXAM: HEAD CT WITHOUT CONTRAST HISTORY: Mental status changes COMPARISON: None. FINDINGS: The ventricular system is midline and nondilated. Mild cortical atrophy is noted.. There is no bleed, mass, extra-axial fluid collection or mass effect. No skull fracture or skull lesion is identified. The visualized paranasal sinuses and mastoid air cells are clear. Status post upper cervical spine surgery, including visualized. IMPRESSION: No acute pathology Pt will be admitted for hepatic encephalopathy and AMS She was accepted to the ICU
--- NOTE | 2019-03-29 04:15 | CONSULT ---
Consultation: REQUESTING PROVIDER: raciel Alegre CONSULT REQUEST: We have been asked to medically evaluate this patient for unresponsive. HISTORY OF PRESENT ILLNESS: This is a 48 year old female with PMH polysubstance abuse (EtOH, cocaine), cirrhosis, GERD, Depression, [place] (2018), HTN, who currently getting detox from [facility] for being obtruded and unresponsive to verbal, tactile stimuli. Hardly arousable to sternal rub ICU evaluation for airway protection; PAST MEDICAL HISTORY: EtOH, Cirrhosis, DM, GERD, Depression, [place] (2018), HTN PAST SURGICAL HISTORY: tubal ligation, cholecystectomy, tonsilectomy, debriedment of OM on coccyx and R 3rd toe in the past Social History: Smoking: denies Alcohol: EtOH abuse Drugs: crack cocaine REVIEW OF SYSTEMS: N/A PHYSICAL EXAMINATION Vital Signs - 24 hr 03/28/19 23:58 Temperature 96.9 F L Pulse Rate 72 Respiratory 17 Rate Blood Pressure 138/84 O2 Sat by Pulse 98 Oximetry (%) GENERAL: hardly arousable to sternal rub EYES: Pupils equal, round and reactive to light, EARS, NOSE, THROAT: Ears normal, nares patent, oropharynx clear without exudates. Moist mucous membranes. LUNGS:decreased breath sounds anteriorly HEART: Regular rate and rhythm, normal S1 and S2 without murmur, rub or gallop. ABDOMEN: abdomen soft; not tender to palpation; bs+; UPPER EXTREMITIES: 2+ pulses, warm, well-perfused. No cyanosis. No clubbing. Cap refill <2 seconds. No peripheral edema. LOWER EXTREMITIES: 2+ pulses, warm, well-perfused. No calf tenderness. No peripheral edema. NEUROLOGICAL: patient obtunded Laboratory Results - last 24 hr 03/29/19 03/29/19 03/29/19 00:45 00:45 00:45 WBC 4.8 RBC 4.45 Hgb 13.1 Hct 38.2 MCV 86.0 MCH 29.4 MCHC 34.1 RDW 17.3 H Plt Count 202 MPV 8.6 Absolute Neuts (auto) 2.2 Neutrophils % 47.0 Lymphocytes % 44.4 H Monocytes % 8.6 Eosinophils % 0.0 Basophils % 0.0 Nucleated RBC % 0 Sodium 138 Potassium 4.5 Chloride 109 H Carbon Dioxide 22 Anion Gap 7 L BUN 16 Creatinine 0.7 Creat Clearance w eGFR 90.09 POC Glucometer Random Glucose 377 H* Calcium 9.1 Total Bilirubin 0.2 AST 51 H ALT 98 H Alkaline Phosphatase 276 H Ammonia Total Protein 7.2 Albumin 2.2 L Serum , Qual Negative Acetone, Qual 03/29/19 03/29/19 03/29/19 00:45 00:45 01:10 WBC RBC Hgb Hct MCV MCH MCHC RDW Plt Count MPV Absolute Neuts (auto) Neutrophils % Lymphocytes % Monocytes % Eosinophils % Basophils % Nucleated RBC % Sodium Potassium Chloride Carbon Dioxide Anion Gap BUN Creatinine Creat Clearance w eGFR POC Glucometer 360 Random Glucose Calcium Total Bilirubin AST ALT Alkaline Phosphatase Ammonia 261.30 H Total Protein Albumin Serum , Qual Acetone, Qual Negative L Active Medications Generic Name Dose Route Start Last Admin Trade Name Freq PRN Reason Stop Dose Admin Chlorhexidine Gluconate 1 applic 03/29/19 22:00 Hibiclens For Decolonization - TP HS SIRIA Mupirocin 1 applic 03/29/19 10:00 Bactroban Ointment (For Decolonization) - NS 04/03/19 09:59 BID [facility] ASSESSMENT/PLAN: This is a 48 year old female with a history of liver cirrhosis, who is obtunded ; admitted for hepatic encephalopathy, admitted to ICU for airway monitoring. Hepatic encephaolpathy Liver cirrhosis Alcohol withdrawal DM hx HTN -stat ABG -admit to ICU for airway monitoring/protection until more alert -neuro checks -f/u head CT -will hold librium for now due to mental status -rectal lactulose prn until 4-5 BM per day -IVF -aspiration precautions -abdominal US VTE ppl ; scds Dispo: We will continue to follow the patient. Thank you for this consultative opportunity. Visit type - Emergency Visit Emergency Visit: Yes Care time: The patient presented to the Emergency Department on the above date and was hospitalized for further evaluation of their emergent condition. - New Patient This patient is new to me today: Yes Date on this admission: 03/29/19 - Critical Care Critical Care patient: Yes Total Critical Care Time (in minutes): 45 Critical Care Statement: The care of this patient involved high complexity decision making to prevent further life threatening deterioration of the patient 's condition and/or to evaluate & treat vital organ system(s) failure or risk of failure.
[2019-03-29] MEDS ORDERED: LACTATED RINGERS SOLUTION 1,000 ML/1,000 ML INFUS.BAG IV SCH ×2 (04:30→18:55)
[2019-03-29 04:36] LABS: ARTERIAL BLD GAS O2 SATURATION 97.5 % (95-98); ARTERIAL BLOOD GAS BASE EXCESS -1.4 meq/l (-2-2); ARTERIAL BLOOD GAS PCO2 30.4 mmHg (35-45); ARTERIAL BLOOD GAS PO2 91.5 mmHg (80-105); ARTERIAL BLOOD GAS pH 7.46 (7.35-7.45); CARBOXYHEMOGLOBIN 1.3 % (0-2)
[2019-03-29 04:48] LABS: ALLENS TEST POSITIVE
[2019-03-29] MEDS ORDERED: morphine SULFATE 4 MG/ML VIAL IVPUSH ONE (04:52)
[2019-03-29] MEDS ORDERED: INSULIN (NOVOLOG) ASPART 100 UNITS/ML 10ML VIAL ONE (05:06)
[2019-03-29] MEDS: INSULIN SLIDING SCALE (NOVOLOG) 1 VIAL SQ SCH ×5 (05:10→18:12)
[2019-03-29] MEDS ORDERED: LACTULOSE 20 GM/30 ML UDC (FOR RECTAL USE ONLY) PR SCH ×2 (06:00→10:00)
[2019-03-29 06:57] LABS: BASO % 0.1 % (0-2.0); EOS % 0.1 % (0-4.5); LYMPH % 33.4 % (8-40); MCH 29.8 pg (25.7-33.7); MCHC 34.3 g/dl (32.0-36.0); MEAN PLT VOLUME 8.5 fl (7.5-11.1); MONO % 12.3 % (3.8-10.2); NEUT % 54.1 % (42.8-82.8); PLATELET COUNT 181 K/MM3 (134-434); RBC 4.36 M/mm3 (3.60-5.2); WHITE BLOOD COUNT 5.7 K/mm3 (4.0-10.0)
--- NOTE | 2019-03-29 09:29 | PN ---
Physical Exam: SUBJECTIVE: Patient seen this morning lethargic and disoriented. Patient denies any pain, does not open eyes. OBJECTIVE: Vital Signs Temperature 98.4 F 03/29/19 08:00 Pulse Rate 81 03/29/19 08:00 Respiratory Rate 21 H 03/29/19 08:00 Blood Pressure 124/81 03/29/19 08:00 O2 Sat by Pulse Oximetry (%) 99 03/29/19 08:00 GENERAL: The patient is awake and oriented x2 HEAD: Normal with no signs of trauma. EYES: PERRL, LUNGS: Breath sounds equal, clear to auscultation bilaterally, no wheezes, no crackles, no accessory muscle use. HEART: Regular rate and rhythm, S1, S2 without murmur, rub or gallop. ABDOMEN: Soft, nontender, nondistended, normoactive bowel sounds, no guarding, no rebound, no hepatosplenomegaly, no masses. EXTREMITIES: 2+ pulses, warm, well-perfused, no edema. SKIN: Warm, dry, normal turgor, no rashes or lesions noted CBCD WBC 5.7 K/mm3 (4.0-10.0) 03/29/19 05:50 RBC 4.36 M/mm3 (3.60-5.2) 03/29/19 05:50 Hgb 13.0 GM/dL (10.7-15.3) 03/29/19 05:50 Hct 38.0 % (32.4-45.2) 03/29/19 05:50 MCV 87.0 fl (80-96) 03/29/19 05:50 MCHC 34.3 g/dl (32.0-36.0) 03/29/19 05:50 RDW 18.0 % (11.6-15.6) H 03/29/19 05:50 Plt Count 181 K/MM3 (134-434) 03/29/19 05:50 MPV 8.5 fl (7.5-11.1) 03/29/19 05:50 CMP Sodium 138 mmol/L (136-145) 03/29/19 00:45 Potassium 4.5 mmol/L (3.5-5.1) 03/29/19 00:45 Chloride 109 mmol/L (98-107) H 03/29/19 00:45 Carbon Dioxide 22 mmol/L (21-32) 03/29/19 00:45 Anion Gap 7 MMOL/L (8-16) L 03/29/19 00:45 BUN 16 mg/dL (7-18) 03/29/19 00:45 Creatinine 0.7 mg/dL (0.55-1.3) 03/29/19 00:45 Creat Clearance w eGFR 90.09 (>60) 03/29/19 00:45 Calcium 9.1 mg/dL (8.5-10.1) 03/29/19 00:45 Total Bilirubin 0.2 mg/dL (0.2-1) 03/29/19 00:45 AST 51 U/L (15-37) H 03/29/19 00:45 ALT 98 U/L (13-61) H 03/29/19 00:45 Alkaline Phosphatase 276 U/L (45-117) H 03/29/19 00:45 Total Protein 7.2 g/dl (6.4-8.2) 03/29/19 00:45 Albumin 2.2 g/dl (3.4-5.0) L 03/29/19 00:45 Active Medications Chlorhexidine Gluconate (Hibiclens For Decolonization -) 1 applic TP HS SIRIA Lactated Ringer's (Lactated Ringers Solution) 1,000 ml in 1,000 mls @ 100 mls/ hr IV ASDIR [facility] Last Admin: 03/29/19 05:09 Dose: 100 mls/hr Insulin Aspart (Novolog Vial Sliding Scale -) 1 vial SQ Q4HWA [facility]; Protocol Last Admin: 03/29/19 06:12 Dose: Not Given Lactulose (Cephulac (Rectal Use)) 200 gm DE TID [facility] Last Admin: 03/29/19 08:30 Dose: 200 gm Mupirocin (Bactroban Ointment (For Decolonization) -) 1 applic NS BID [facility] Stop: 04/03/19 09:59 ASSESSMENT/PLAN: Patient is a 48 y/o female with a history of polysubstance abuse ( ETOH and cocaine), cirrhosis, GERD, depression, [place] ( 2018), and HTN who is here for hepatic encephaolopthy. Neuro - hepatic encephalopathy - f/u ammonia level tomorrow - Lactulose 20 TID po, rifaxin 550 BID - monitor for 5-6 bowel movements per day - f/u urine tox - Head CT: no evidence of acute territorial ischemic changes Cardio - BP stable - continue home meds for HTN Pulm - stable - CXR: no evidence of acute process GI - hepatic encephalopathy, hx alcoholic cirrhosis - continue lactulose and rifaxin - 11/16/18 abd US: hepatomegaly with fatty infiltrate - TIPPS procedure 5 years ago - hepatitis panel pending ID - afebrile - f/u Ucx, r/o infection as exacerbating factor Heme - Lovenox 40 sq DVT ppx Endo - high sugar on presentation, 8 units given - recent POC 184, controlled - SS as needed FEN - LR @ 100 - aspiration precautions, po as tolerated - Mg repleted Dispo: patient can be monitored on the floors Visit type - Emergency Visit Emergency Visit: Yes ED Registration Date: 03/29/19 Care time: The patient presented to the Emergency Department on the above date and was hospitalized for further evaluation of their emergent condition. - New Patient This patient is new to me today: Yes Date on this admission: 03/29/19 - Critical Care Critical Care patient: Yes Total Critical Care Time (in minutes): 40 Critical Care Statement: The care of this patient involved high complexity decision making to prevent further life threatening deterioration of the patient 's condition and/or to evaluate & treat vital organ system(s) failure or risk of failure.
[2019-03-29] MEDS ORDERED: MUPIROCIN 2% TOPICAL OINTMENT FOR DECOLONIZATION NS SCH ×3 (10:00→22:00)
[2019-03-29 10:21] LABS: INR 1.05 (0.83-1.09); PROTHROMBIN TIME (PATIENT) 12.4 SEC (9.7-13.0)
--- NOTE | 2019-03-29 10:51 | EKG ---
Test Reason : Blood Pressure : / mmHG Vent. Rate : 076 BPM Atrial Rate : 076 BPM P-R Int : 146 ms QRS Dur : 080 ms QT Int : 424 ms P-R-T Axes : 051 004 019 degrees QTc Int : 477 ms NORMAL SINUS RHYTHM POSSIBLE LEFT ATRIAL ENLARGEMENT LEFT VENTRICULAR HYPERTROPHY ABNORMAL ECG WHEN COMPARED WITH ECG OF 13-NOV-2018 14:50, NO SIGNIFICANT CHANGE WAS FOUND Confirmed by KERI BAXTER MD ([id number]) on 03/29/2019 10:51:34 AM Referred By: Confirmed By:KERI BAXTER MD
[2019-03-29] MEDS ORDERED: LACTULOSE 20 GM/30 ML UDC (FOR ORAL USE ONLY) PO PRN (11:56)
[2019-03-29 12:04] LABS: ALK PHOS 206 U/L (45-117); ANION GAP 6 MMOL/L (8-16); BILIRUBIN,TOTAL 0.2 mg/dL (0.2-1); BLOOD UREA NITROGEN 16 mg/dL (7-18); CALCIUM 8.6 mg/dL (8.5-10.1); CHLORIDE 112 mmol/L (98-107); CO2 24 mmol/L (21-32); CREATININE 0.6 mg/dL (0.55-1.3); MAGNESIUM 1.7 mg/dL (1.8-2.4); PHOSPHOROUS 4.1 mg/dL (2.5-4.9); POTASSIUM 4.4 mmol/L (3.5-5.1); SGOT/AST 44 U/L (15-37); SGPT/ALT 84 U/L (13-61); SODIUM 142 mmol/L (136-145); TOT PROT 6.3 g/dl (6.4-8.2)
--- NOTE | 2019-03-29 12:16 | CON.NEURO ---
Consult - History of Present Illness History of Present Illness: 48 y/o woman from [facility] with a past medical history of Alcohol Abuse, Cocaine Abuse, Cirrhosis, [place] (2018), HTN, DM. Who presents to the ED obtunded. Per the ED records: The patient is currently in detox for alcohol and was found to be altered and lethargic after eating dinner. She was noted to be hyperglycemic to 500s and was given 8 units of insulin, but continued to remain altered and lethargic prompting her presentation to the ED for further evaluation. On presentation to the ED, the patient is only responsive to painful stimulus, but otherwise does not answer questions or participate in history. Ammonia > 200, LFTS elevated HD CT 03/29 Impression. No evidence of acute intracranial hemorrhage, edema, midline shift, mass effect, or skull fracture. No CT evidence of acute territorial ischemic changes. There is no CT evidence of acute territorial infarction.. - Past Medical History Cardio/Vascular: Yes: HTN Gastrointestinal: Yes: GERD Hepatobiliary: Yes: Cirrhosis (Alcoholic cirrhosis with history of TIPS for intractible ascites), Other (REFRACTORY ASCITES AND CIRRHOSIS, HEP B/ C NEG PER PATIENT) ...LMP: 12/15/18 Psych: Yes: Addictions (alcohol abuse), Other (Substance abuse) Endocrine: Yes: Diabetes Mellitus Additional Medical History: peripheral neuropathy - Past Surgical History Past Surgical History: Yes: Cholecystectomy, Tubal Ligation - Alcohol/Substance Use Hx Alcohol Use: Yes History of Substance Use: reports: Cocaine, Prescription (history of poly substance abuse an has a prescription bottle of pills that are not hers) - Smoking History Smoking history: Unknown if ever smoked Have you smoked in the past 12 months: No Aproximately how many cigarettes per day: 0 - Social History Usual Living Arrangement: Alone ADL: Independent Occupation: disabled History of Recent Travel: No Home Medications - Allergies Allergies/Adverse Reactions: Allergies Allergy/AdvReac Type Severity Reaction Status Date / Time fish derived Allergy Severe Swelling Verified 03/25/19 08:33 shellfish derived Allergy Severe Swelling Verified 03/25/19 08:33 No Known Drug Allergies Allergy Verified 03/25/19 08:33 SEAFOOD Allergy Severe Swelling Uncoded 03/25/19 08:33 - Home Medications Home Medications: Ambulatory Orders Esomeprazole Magnesium [Nexium 24Hr] 40 mg PO DAILY 11/09/18 Lisinopril [Prinivil] 10 mg PO DAILY 30 Days #30 tablet 11/17/18 Pregabalin [Lyrica] 150 mg PO DAILY #45 capsule MDD 150mg 11/17/18 Insulin Glargine,Hum.rec.anlog [Lantus Solostar PEN (NF)] 45 units SQ HS Family Disease History - Family Disease History Family Disease History: Diabetes: Grandparent (alcohol), Father (alive: 68: HTN) , Mother (alive: 67), Other: Grandparent, Father, Mother Physical Exam-Neuro Vital Signs: Vital Signs Temperature 98.4 F 03/29/19 08:00 Pulse Rate 81 03/29/19 08:00 Respiratory Rate 21 H 03/29/19 08:00 Blood Pressure 124/81 03/29/19 08:00 O2 Sat by Pulse Oximetry (%) 99 03/29/19 08:00 Labs: CBC, BMP 03/29/19 05:50 03/29/19 11:20 INR, PTT INR 1.05 (0.83-1.09) 03/29/19 09:40 Problem List - Problems (1) Acute hepatic encephalopathy Code(s): K72.00 - ACUTE AND SUBACUTE HEPATIC FAILURE WITHOUT COMA (2) Altered mental status Code(s): R41.82 - ALTERED MENTAL STATUS, UNSPECIFIED Qualifiers: Altered mental status type: unspecified Qualified Code(s): R41.82 - Altered mental status, unspecified (3) Alcohol dependence with uncomplicated withdrawal Code(s): F10.230 - ALCOHOL DEPENDENCE WITH WITHDRAWAL, UNCOMPLICATED (4) Cocaine dependence Code(s): F14.20 - COCAINE DEPENDENCE, UNCOMPLICATED Qualifiers: (5) Elevated glucose level Code(s): R73.09 - OTHER ABNORMAL GLUCOSE (6) Chronic liver disease and cirrhosis Code(s): K74.60 - UNSPECIFIED CIRRHOSIS OF LIVER; K76.9 - LIVER DISEASE, UNSPECIFIED (7) Diabetes mellitus, insulin dependent (IDDM), uncontrolled Code(s): E10.65 - TYPE 1 DIABETES MELLITUS WITH HYPERGLYCEMIA Qualifiers: Glycemic state: with hyperglycemia Qualified Code(s): E10.65 - Type 1 diabetes mellitus with hyperglycemia Assessment/Plan 48 y/o woman from [facility] with a past medical history of Alcohol Abuse, Cocaine Abuse, Cirrhosis, [place] (2018), HTN, DM. Who presents to the ED obtunded. Per the ED records: The patient is currently in detox for alcohol and was found to be altered and lethargic after eating dinner. She was noted to be hyperglycemic to 500s and was given 8 units of insulin, but continued to remain altered and lethargic prompting her presentation to the ED for further evaluation. On presentation to the ED, the patient is only responsive to painful stimulus, but otherwise does not answer questions or participate in history. Ammonia > 200, LFTS elevated HD CT 03/29 Impression. No evidence of acute intracranial hemorrhage, edema, midline shift, mass effect, or skull fracture. No CT evidence of acute territorial ischemic changes. There is no CT evidence of acute territorial infarction.. PENDING
--- NOTE | 2019-03-29 12:20 | PN ---
Teaching Attending Note Name of Resident: Shakila Holman ATTENDING PHYSICIAN STATEMENT I saw and evaluated the patient. I reviewed the resident's note and discussed the case with the resident. I agree with the resident's findings and plan as documented. SUBJECTIVE: Pt seen and examined in the ICU. Mental status improving with lactulose. No fevers recorded. Alert, oriented to person and place. OBJECTIVE: Vital Signs Period Temp Pulse Resp BP Sys/Resendez Pulse Ox Last 24 Hr 96.9 F-98.4 F 72-81 15-21 124-138/81-84 98-100 Intake & Output 03/26/19 03/27/19 03/28/19 03/29/19 23:59 23:59 23:59 23:59 Weight 81.647 kg Gen: alert, awake Heart: RRR Lung: decreased breath sounds at the bases Abd: soft, nontender Ext: no edema CBC, BMP 03/29/19 05:50 03/29/19 11:20 Active Medications Chlorhexidine Gluconate (Hibiclens For Decolonization -) 1 applic TP HS [facility] Enoxaparin Sodium (Lovenox -) 40 mg SQ DAILY [facility] Lactated Ringer's (Lactated Ringers Solution) 1,000 ml in 1,000 mls @ 100 mls/ hr IV ASDIR [facility] Last Admin: 03/29/19 05:09 Dose: 100 mls/hr Insulin Aspart (Novolog Vial Sliding Scale -) 1 vial SQ Q4HWA [facility]; Protocol Last Admin: 03/29/19 11:12 Dose: 2 units Lactulose (Cephulac (Oral Use)) 20 gm PO TID PRN PRN Reason: CONSTIPATION Mupirocin (Bactroban Ointment (For Decolonization) -) 1 applic NS BID [facility] Stop: 04/03/19 09:59 Last Admin: 03/29/19 11:13 Dose: 1 applic Rifaximin (Xifaxan -) 550 mg PO BID [facility] ASSESSMENT AND PLAN: Altered Mental Status Hepatic Encephalopathy Liver Cirrhosis Alcohol Withdrawal HTN DM - continue lactulose, can change to PO - start rifaximin - monitor ammonia level - send tox screen - PO as tolerated - aspiration precautions - DVT prophylaxis - can monitor on floor
--- NOTE | 2019-03-29 12:24 | PN ---
Physical Exam: SUBJECTIVE: Patient seen and examined. She is awake and alert. She complains of pain all over. OBJECTIVE: Vital Signs Period Temp Pulse Resp BP Sys/Resendez Pulse Ox Last 24 Hr 96.9 F-98.4 F 72-81 15-21 124-138/81-84 98-100 GENERAL: The patient is awake, alert, and oriented to person and place but not time, in no acute distress. LUNGS: Breath sounds equal, clear to auscultation bilaterally, no wheezes, no crackles, no accessory muscle use. HEART: Regular rate and rhythm, S1, S2 without murmur, rub or gallop. ABDOMEN: Soft, nontender, nondistended, normoactive bowel sounds, no guarding, no rebound, no hepatosplenomegaly, no masses. EXTREMITIES: 2+ pulses, warm, well-perfused, no edema. Laboratory Results - last 24 hr 03/29/19 03/29/19 03/29/19 00:45 00:45 00:45 WBC 4.8 RBC 4.45 Hgb 13.1 Hct 38.2 MCV 86.0 MCH 29.4 MCHC 34.1 RDW 17.3 H Plt Count 202 MPV 8.6 Absolute Neuts (auto) 2.2 Neutrophils % 47.0 Lymphocytes % 44.4 H Monocytes % 8.6 Eosinophils % 0.0 Basophils % 0.0 Nucleated RBC % 0 PT with INR INR PTT (Actin FS) Anticoagulation Therapy Puncture Site ABG pH ABG pCO2 at Pt Temp ABG pO2 at Pt Temp ABG HCO3 ABG O2 Sat (Measured) ABG O2 Content ABG Base Excess Giovanni Test Carboxyhemoglobin Methemoglobin O2 Delivery Device Oxygen Flow Rate Vent Mode Vent Rate Mechanical Rate Pressure Support Vent Sodium 138 Potassium 4.5 Chloride 109 H Carbon Dioxide 22 Anion Gap 7 L BUN 16 Creatinine 0.7 Creat Clearance w eGFR 90.09 POC Glucometer Random Glucose 377 H* Hemoglobin A1c % Lactic Acid Calcium 9.1 Phosphorus Magnesium Total Bilirubin 0.2 AST 51 H ALT 98 H Alkaline Phosphatase 276 H Ammonia Total Protein 7.2 Albumin 2.2 L Serum , Qual Negative Salicylates Acetaminophen Alcohol, Quantitative Acetone, Qual 03/29/19 03/29/19 03/29/19 00:45 00:45 00:45 WBC RBC Hgb Hct MCV MCH MCHC RDW Plt Count MPV Absolute Neuts (auto) Neutrophils % Lymphocytes % Monocytes % Eosinophils % Basophils % Nucleated RBC % PT with INR INR PTT (Actin FS) Anticoagulation Therapy Puncture Site ABG pH ABG pCO2 at Pt Temp ABG pO2 at Pt Temp ABG HCO3 ABG O2 Sat (Measured) ABG O2 Content ABG Base Excess Giovanni Test Carboxyhemoglobin Methemoglobin O2 Delivery Device Oxygen Flow Rate Vent Mode Vent Rate Mechanical Rate Pressure Support Vent Sodium Potassium Chloride Carbon Dioxide Anion Gap BUN Creatinine Creat Clearance w eGFR POC Glucometer Random Glucose Hemoglobin A1c % Lactic Acid Calcium Phosphorus Magnesium Total Bilirubin AST ALT Alkaline Phosphatase Ammonia 261.30 H Total Protein Albumin Serum , Qual Salicylates < 1.7 L Acetaminophen < 1.7 L Alcohol, Quantitative < 3.0 Acetone, Qual Negative L 03/29/19 03/29/19 03/29/19 01:10 04:23 05:02 WBC RBC Hgb Hct MCV MCH MCHC RDW Plt Count MPV Absolute Neuts (auto) Neutrophils % Lymphocytes % Monocytes % Eosinophils % Basophils % Nucleated RBC % PT with INR INR PTT (Actin FS) Anticoagulation Therapy No Result Required. Puncture Site Right radial ABG pH 7.46 H ABG pCO2 at Pt Temp 30.4 L ABG pO2 at Pt Temp 91.5 ABG HCO3 21.2 L ABG O2 Sat (Measured) 97.5 ABG O2 Content 16.6 ABG Base Excess -1.4 Giovanni Test Positive Carboxyhemoglobin 1.3 Methemoglobin 0.1 O2 Delivery Device No Result Required. Oxygen Flow Rate No Vent Mode No Result Required. Vent Rate No Result Required. Mechanical Rate No Result Required. Pressure Support Vent No Result Required. Sodium Potassium Chloride Carbon Dioxide Anion Gap BUN Creatinine Creat Clearance w eGFR POC Glucometer 360 306 Random Glucose Hemoglobin A1c % Lactic Acid Calcium Phosphorus Magnesium Total Bilirubin AST ALT Alkaline Phosphatase Ammonia Total Protein Albumin Serum , Qual Salicylates Acetaminophen Alcohol, Quantitative Acetone, Qual 03/29/19 03/29/19 03/29/19 05:15 05:50 06:00 WBC 5.7 RBC 4.36 Hgb 13.0 Hct 38.0 MCV 87.0 MCH 29.8 MCHC 34.3 RDW 18.0 H Plt Count 181 MPV 8.5 Absolute Neuts (auto) 3.1 Neutrophils % 54.1 Lymphocytes % 33.4 D Monocytes % 12.3 H Eosinophils % 0.1 D Basophils % 0.1 D Nucleated RBC % 0 PT with INR INR PTT (Actin FS) Anticoagulation Therapy Puncture Site ABG pH ABG pCO2 at Pt Temp ABG pO2 at Pt Temp ABG HCO3 ABG O2 Sat (Measured) ABG O2 Content ABG Base Excess Giovanni Test Carboxyhemoglobin Methemoglobin O2 Delivery Device Oxygen Flow Rate Vent Mode Vent Rate Mechanical Rate Pressure Support Vent Sodium Potassium Chloride Carbon Dioxide Anion Gap BUN Creatinine Creat Clearance w eGFR POC Glucometer Random Glucose Hemoglobin A1c % 11.4 H Lactic Acid 1.6 Calcium Phosphorus Magnesium Total Bilirubin AST ALT Alkaline Phosphatase Ammonia Total Protein Albumin Serum , Qual Salicylates Acetaminophen Alcohol, Quantitative Acetone, Qual 03/29/19 03/29/19 09:40 11:20 WBC RBC Hgb Hct MCV MCH MCHC RDW Plt Count MPV Absolute Neuts (auto) Neutrophils % Lymphocytes % Monocytes % Eosinophils % Basophils % Nucleated RBC % PT with INR 12.40 INR 1.05 PTT (Actin FS) 34.0 Anticoagulation Therapy Puncture Site ABG pH ABG pCO2 at Pt Temp ABG pO2 at Pt Temp ABG HCO3 ABG O2 Sat (Measured) ABG O2 Content ABG Base Excess Giovanni Test Carboxyhemoglobin Methemoglobin O2 Delivery Device Oxygen Flow Rate Vent Mode Vent Rate Mechanical Rate Pressure Support Vent Sodium 142 Potassium 4.4 Chloride 112 H Carbon Dioxide 24 Anion Gap 6 L BUN 16 Creatinine 0.6 Creat Clearance w eGFR 107.62 POC Glucometer Random Glucose Hemoglobin A1c % Lactic Acid Calcium 8.6 Phosphorus 4.1 Magnesium 1.7 L Total Bilirubin 0.2 AST 44 H ALT 84 H Alkaline Phosphatase 206 H Ammonia Total Protein 6.3 L Albumin 2.0 L Serum , Qual Salicylates Acetaminophen Alcohol, Quantitative Acetone, Qual Active Medications Generic Name Dose Route Start Last Admin Trade Name Freq PRN Reason Stop Dose Admin Chlorhexidine Gluconate 1 applic 03/29/19 22:00 Hibiclens For Decolonization - TP HS SIRIA Enoxaparin Sodium 40 mg 03/29/19 12:00 Lovenox - SQ DAILY [facility] Lactated Ringer's 1,000 ml in 1,000 mls @ 100 mls/hr 03/29/19 04:30 03/29/19 05:09 Lactated Ringers Solution IV 100 mls/hr ASDIR [facility] Administration Insulin Aspart 1 vial 03/29/19 04:30 03/29/19 11:12 Novolog Vial Sliding Scale - SQ 2 units Q4HWA [facility] Administration Protocol Lactulose 20 gm 03/29/19 11:56 Cephulac (Oral Use) PO TID PRN CONSTIPATION Mupirocin 1 applic 03/29/19 10:00 03/29/19 11:13 Bactroban Ointment (For Decolonization) - NS 04/03/19 09:59 1 applic BID SIRIA Administration Rifaximin 550 mg 03/29/19 12:00 Xifaxan - PO BID [facility] ASSESSMENT/PLAN: This is a 48 year old woman with a history of [place], HTN, hyperlipidemia, type 2 DM , alcohol abuse, cocaine abuse, cirrhosis who was sent to the ED from [facility] after becoming confused and lethargic. 1. Hepatic encephalopathy - Some improvement after Lactulose given - Continue Lactulose - Xifaxan added 2. Continuous alcohol dependence with uncomplicated withdrawal - Currently no signs of withdrawal 3. Alcoholic cirrhosis 4. Type 2 diabetes mellitus, uncontrolled - Continue Novolog sliding scale 5. HTN - Restart lisinopril 6. History of [place] 7. Cocaine dependence 8. Nicotine dependence 9. GERD Visit type - Emergency Visit Emergency Visit: Yes ED Registration Date: 03/29/19 Care time: The patient presented to the Emergency Department on the above date and was hospitalized for further evaluation of their emergent condition. - New Patient This patient is new to me today: Yes Date on this admission: 03/29/19 - Critical Care Critical Care patient: No - Discharge Referral Referred to [facility] No
[2019-03-29] MEDS: RIFAXIMIN 550 MG TABLET (UD) PO SCH ×2 (12:33→13:43)
[2019-03-29] MEDS: ENOXAPARIN NA (PORCINE) 40 MG/0.4 ML DISP.SYRIN SQ SCH ×2 (12:33→13:43)
[2019-03-29 12:58] VITALS: TEMP 98
[2019-03-29 13:04] LABS: GLUCOSE,RANDOM 322 mg/dL (74-106)
[2019-03-29 13:29] LABS: COCAINE, UR NEGATIVE ng/ml (CUTOFF=300); METHADONE, UR NEGATIVE ng/ml (CUTOFF=300); OPIATES, URI NEGATIVE ng/ml (CUTOFF=300); PHENCYCLIDINE,URINE NEGATIVE ng/ml (CUTOFF=25); URINE AMPHETAMINES NEGATIVE ng/ml (CUTOFF=500); URINE BARBITURATES NEGATIVE ng/ml (CUTOFF=200)
[2019-03-29 13:36] LABS: URINE BENZODIAZEPINES POSITIVE ng/ml (CUTOFF=200)
[2019-03-29] MEDS ORDERED: LACTULOSE 20 GM/30 ML UDC (FOR ORAL USE ONLY) PO SCH ×2 (14:00→22:00)
[2019-03-29 17:39] VITALS: BP 110/68; PULSE 74
--- NOTE | 2019-03-29 19:52 | PN ---
Progress Note (short form) - Note Progress Note: Patient decided to leave against medical advice. Risks of doing so up to and including permanent injury, permanent disability, and , were full explained. The patient had decision-making capacity, demonstrated understanding of the risks, and elected to leave AMA in any case.
[2019-03-29] MEDS ORDERED: RIFAXIMIN 550 MG TABLET (UD) PO SCH (22:00)
[2019-03-29] MEDS ORDERED: CHLORHEXIDINE GLUCONATE 4% CLEANSER FOR DECOLONIZATION TP SCH ×3 (22:00)
[2019-03-29] MEDS ORDERED: INSULIN SLIDING SCALE (NOVOLOG) 1 VIAL SQ SCH (22:00)
[2019-03-30] MEDS ORDERED: LISINOPRIL 10 MG TABLET (FP) PO SCH ×2 (10:00)
[2019-03-30] MEDS ORDERED: ENOXAPARIN NA (PORCINE) 40 MG/0.4 ML DISP.SYRIN SQ SCH (10:00)
[2019-03-30] MEDS ORDERED: PANTOPRAZOLE 40 MG TABLET (FP) PO SCH ×2 (10:00)
[2019-03-30 17:09] LABS: HBSAG SCREEN Negative (Negative); HEP A AB, IGM Negative (Negative); HEP B CORE AB, TOT Negative (Negative)
== END 2019-03-29 21:00 | disposition left against medical advice (07) | DRG 442 ==
LOC: JER 23:49 → JERBED 03-29 02:55 → JICU 03-29 08:51 → J5S 03-29 18:17
PROVIDERS: ADMIT Internal Medicine; ATTEND Internal Medicine
DX: K72.00 Acute and subacute hepatic failure without coma (principal); F10.230 Alcohol dependence with withdrawal, uncomplicated; F14.20 Cocaine dependence, uncomplicated; E72.20 Disorder of urea cycle metabolism, unspecified; I10 Essential (primary) hypertension; Z79.4 Long term (current) use of insulin; I25.2 Old myocardial infarction; E11.65 Type 2 diabetes mellitus with hyperglycemia; F17.210 Nicotine dependence, cigarettes, uncomplicated; K21.9 Gastro-esophageal reflux disease without esophagitis; F32.9 Major depressive disorder, single episode, unspecified; K70.30 Alcoholic cirrhosis of liver without ascites
CPT/HCPCS: 36415; 36600; 70450-TC; 71045-TC-FY; 76705-TC; 80053; 80307; 82009; 82105; 82140; 82375; 82803; 82962; 83036; 83050; 83605; 83735; 84100; 84703; 85025; 85610; 85730; 86704; 86706; 86708; 86803; 87086; 87340; 93005; 93010; 99285-25; J7030

== ENCOUNTER 2019-05-28 10:22 | Inpatient (IN) | payer MEDICARE, OTHER ==
[2019-05-28 11:43] VITALS: BMI 28.4
--- NOTE | 2019-05-28 12:33 | HP ---
CIWA Score Nausea/Vomitin Muscle Tremors: 2 Anxiety: 1-Mildly Anxious Agitation: 0-Normal Activity Paroxysmal Sweats: 1-Minimal Palms Moist Orientation: 3-Disoriented Date>2 days Tacttile Disturbances: 1-Very Mild Itch/Numbness Auditory Disturbances: 1-Very Mild Visual Disturbances: 1-Very Mild Sensitivity Headache: 2-Mild CIWA-Ar Total Score: 15 - Admission Criteria OASAS Guidelines: Admission for Medically Managed Detox: Requires at least one of the followin. CIWA greater than 12 2. Seizures within the past 24 hours 3. Delirium tremens within the past 24 hours 4. Hallucinations within the past 24 hours 5. Acute intervention needed for co occurring medical disorder 6. Acute intervention needed for co occurring psychiatric disorder 7. Severe withdrawal that cannot be handled at a lower level of care (continued vomiting, continued diarrhea, abnormal vital signs) requiring intravenous medication and/or fluids 8. Admission ROS S - HPI Allergies/Adverse Reactions: Allergies Allergy/AdvReac Type Severity Reaction Status Date / Time fish derived Allergy Severe Swelling Verified 05/28/19 11:31 shellfish derived Allergy Severe Swelling Verified 05/28/19 11:31 No Known Drug Allergies Allergy Verified 05/28/19 11:31 SEAFOOD Allergy Severe Swelling Uncoded 05/28/19 11:31 History of Present Illness: pt here requesting detox from etoh use , reports 1 liter/day , tremors if not drinking , starts drinking early in the mornings, latest use yesterday , current symptoms as above. pmhx : htn , iddm tobacco : denies Exam Limitations: Clinical Condition - Ebola screening Have you traveled outside of the country in the last 21 days: No Have you had contact with anyone from an Ebola affected area: No - Review of Systems Constitutional: No Symptoms Reported EENT: reports: No Symptoms Reported Respiratory: reports: No Symptoms reported Cardiac: reports: No Symptoms Reported GI: reports: See HPI : reports: No Symptoms Reported Musculoskeletal: reports: No Symptoms Reported Integumentary: reports: Rash (" from the sun ") Neuro: reports: See HPI Endocrine: reports: See HPI Psychiatric: reports: Agitated, Anxious, Disorientated Patient History - Patient Medical History Hx Anemia: No Hx Asthma: No Hx Chronic Obstructive Pulmonary Disease (COPD): No Hx Cancer: No Hx Cardiac Disorders: No Hx Congestive Heart Failure: No Hx Hypertension: Yes (on med) Hx Hypercholesterolemia: No Hx Pacemaker: No HX Cerebrovascular Accident: No Hx Seizures: No Hx Dementia: No Hx Diabetes: Yes (iddm) Hx Gastrointestinal Disorders: No Hx Liver Disease: No Hx Genitourinary Disorders: No Hx Sexually Transmitted Disorders: No Hx Renal Disease (ESRD): No Hx Thyroid Disease: No Hx Human Immunodeficiency Virus (HIV): No (NEGATIVE HX last 10/18 negative) Hx Hepatitis C: No (NEGATIVE ) Hx Depression: No Hx Suicide Attempt: No Hx Bipolar Disorder: No Hx Schizophrenia: No - Patient Surgical History Past Surgical History: Yes Hx Neurologic Surgery: No Hx Cataract Extraction: No Hx Cardiac Surgery: No Hx Lung Surgery: No Hx Breast Surgery: No Hx Breast Biopsy: No Hx Abdominal Surgery: Yes (TUBAL LIGATION IN 2005) Hx Appendectomy: Yes (10/25/17) Hx Cholecystectomy: Yes (lap ) Hx Genitourinary Surgery: No Hx Section: No Hx Orthopedic Surgery: Yes (neck, 11/30/2015 (fall);SX COCYX DUE TO OSTEOMYLITIS - 2010) Other Surgical History: Pt had sx for intestinal blockage in 11/16 in [facility] 11/16 Anesthesia Reaction: No - PPD History Date: 11/11/18 Results: 0 mm - Reproductive History Last Menstrual Period: 12/15/18 - Smoking Cessation Smoking history: Unknown if ever smoked Have you smoked in the past 12 months: No Aproximately how many cigarettes per day: 0 Cigars Per Day: 0 Hx Chewing Tobacco Use: No - Substances abused Alcohol Substance route: Oral Frequency: Daily Amount used: 1 liter vodka Age of first use: 43 Date of last use: 03/24/19 Cocaine Substance route: Smoking Frequency: 1-2 times per week Amount used: 10$ Age of first use: 44 Date of last use: 05/27/19 Family Disease History - Family Disease History Family Disease History: Diabetes: Grandparent (alcohol), Father (alive: 68: HTN) , Mother (alive: 67), Other: Grandparent, Father, Mother Admission Physical Exam BHS - Vital Signs Vital Signs: Vital Signs - 24 hr 05/28/19 05/28/19 11:38 12:09 Temperature 96.2 F L 96.2 F L Pulse Rate 73 Respiratory 16 Rate Blood Pressure 157/87 - Physical General Appearance: Yes: Mild Distress, Irritable, Anxious HEENTM: Yes: Normocephalic, Normal Voice Respiratory: Yes: Lungs Clear, No Respiratory Distress, No Accessory Muscle Use Neck: Yes: No masses,lesions,Nodules, Trachea in good position Cardiology: Yes: Regular Rhythm, Regular Rate, S1, S2 Abdominal: Yes: Non Tender, Soft Musculoskeletal: Yes: Gait Steady Extremities: Yes: Non-Tender, Tremors 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: Yes: Alert, Motor Strength 5/5 Integumentary: Yes: Warm - Diagnostic (1) Alcohol dependence with uncomplicated withdrawal Current Visit: Yes Status: Acute Breathalyzer - Breathalyzer Breathalyzer: 0 POC Urine test - Test device test lot number: [id number] Expiration date: 07/31/20 - Control test control: Yes Urine Drug Screen - Test Device Lot number: [id number] Expiration date: 01/28/21 - Control Is test valid?: Yes - Results Drug screen NEGATIVE: No Urine drug screen results: DEEPAK-Cocaine Inpatient Rehab Admission - Rehab Decision to Admit Inpatient rehab admission?: No
[2019-05-28] MEDS ORDERED: MENTHOL/PHENOL 1 EACH UD MM PRN (12:38)
[2019-05-28] MEDS ORDERED: MAGNESIUM CITRATE 300 ML BOTTLE PO PRN (12:38)
[2019-05-28] MEDS ORDERED: MAGNESIUM HYDROX 2400MG/30ML ORAL SUSPENSION 30 ML CUP PO PRN (12:38)
[2019-05-28] MEDS ORDERED: hydrOXYzine PAMOATE 25 MG CAPSULE (FP) PO PRN (12:38)
[2019-05-28] MEDS ORDERED: BISMUTH SUBSALICYLATE 262 MG/15 ML BTL PO PRN (12:38)
[2019-05-28] MEDS ORDERED: ACETAMINOPHEN 325 MG TABLET (FP) PO PRN ×2 (12:38)
[2019-05-28] MEDS ORDERED: chlordiazePOXIDE HCL 25 MG CAPSULE PO PRN (12:44)
[2019-05-28] MEDS: LISINOPRIL 10 MG TABLET (FP) PO SCH (14:31)
[2019-05-28] MEDS: INSULIN SLIDING SCALE (NOVOLOG) 1 VIAL SQ SCH ×2 (16:38→21:28)
[2019-05-28] MEDS: METHOCARBAMOL 500 MG TABLET PO PRN ×2 (17:37→23:18)
[2019-05-28] MEDS: chlordiazePOXIDE HCL 25 MG CAPSULE PO SCH ×2 (17:37→22:25)
[2019-05-28] MEDS ORDERED: COLLOIDAL OATMEAL 1 BAR EACH TP PRN (17:58)
[2019-05-28] MEDS: THIAMINE HCL 100 MG TABLET (FP) PO SCH (21:26)
[2019-05-28] MEDS: BACITRACIN/POLYMYXIN B SULFATE 15 GM TUBE TP SCH (21:26)
[2019-05-28] MEDS: INSULIN (LEVEMIR) 100 UNITS/ML UNITS SQ SCH (21:28)
[2019-05-28] MEDS: IBUPROFEN 400 MG TABLET (FP) PO PRN (22:28)
[2019-05-29] MEDS: chlordiazePOXIDE HCL 25 MG CAPSULE PO SCH ×4 (05:38→22:44)
[2019-05-29] MEDS: INSULIN SLIDING SCALE (NOVOLOG) 1 VIAL SQ SCH ×4 (06:11→22:47)
[2019-05-29] MEDS ORDERED: INSULIN SLIDING SCALE (NOVOLOG) 1 VIAL SQ ONE ×4 (06:11→22:42)
[2019-05-29] MEDS: PRENATAL VITAMINS W/ FOLIC ACID TABLET (FP) PO SCH (10:24)
[2019-05-29] MEDS: BACITRACIN/POLYMYXIN B SULFATE 15 GM TUBE TP SCH ×2 (10:24→22:25)
[2019-05-29] MEDS: LISINOPRIL 10 MG TABLET (FP) PO SCH (10:24)
[2019-05-29] MEDS: METHOCARBAMOL 500 MG TABLET PO PRN ×2 (10:25→18:32)
[2019-05-29] MEDS ORDERED: INSULIN (NOVOLOG) ASPART 100 UNITS/ML 10ML VIAL SQ ONE (12:20)
--- NOTE | 2019-05-29 14:27 | PN ---
S CIWA - CIWA Score Nausea/Vomitin Muscle Tremors: 3 Anxiety: 4-Mod. Anxious/Guarded Agitation: 2 Paroxysmal Sweats: 3 Orientation: 2-Disoriented Date<2 days Tacttile Disturbances: 1-Very Mild Itch/Numbness Auditory Disturbances: 0-None Visual Disturbances: 0-None Headache: 0-None Present CIWA-Ar Total Score: 17 BHS Progress Note (SOAP) Subjective: Sweating, Anxious, Tremors, Nausea. Objective: PATIENT A & O X 2 (UNCERTAIN ABOUT CURRENT DAY / DATE). PATIENT OBSERVED AMBULATING ON UNIT UNASSISTED. IN NO ACUTE DISTRESS. 05/29/19 14:24 Vital Signs Temperature 96.8 F L 05/29/19 13:23 Pulse Rate 106 H 05/29/19 13:23 Respiratory Rate 18 05/29/19 13:23 Blood Pressure 131/75 05/29/19 13:23 O2 Sat by Pulse Oximetry (%) Laboratory Tests 05/28/19 05/28/19 05/28/19 13:23 16:43 20:51 POC Glucometer 515 > 600 536 RPR Titer 05/29/19 05/29/19 05/29/19 05:39 07:50 11:40 POC Glucometer [phone] RPR Titer Nonreactive DETOX ADMISSION LAB RESULTS PENDING. 05/29/19 14:26 Assessment: 05/29/19 14:26 WITHDRAWAL SYMPTOMS. Plan: CONTINUE DETOX.
[2019-05-29] MEDS: SELENIUM SULFIDE 2.5% LOTION 4 OZ. TP SCH (15:08)
[2019-05-29] MEDS: IBUPROFEN 400 MG TABLET (FP) PO PRN (18:32)
[2019-05-29] MEDS: THIAMINE HCL 100 MG TABLET (FP) PO SCH (22:44)
[2019-05-29] MEDS: MELATONIN 5 MG TABLETS PO PRN (22:44)
[2019-05-29] MEDS: INSULIN (LEVEMIR) 100 UNITS/ML UNITS SQ SCH (22:47)
[2019-05-30] MEDS: chlordiazePOXIDE HCL 25 MG CAPSULE PO SCH ×2 (06:28→10:16)
[2019-05-30] MEDS ORDERED: INSULIN SLIDING SCALE (NOVOLOG) 1 VIAL SQ ONE ×3 (06:32→18:16)
[2019-05-30] MEDS: INSULIN SLIDING SCALE (NOVOLOG) 1 VIAL SQ SCH ×4 (06:37→22:28)
[2019-05-30 09:39] LABS: BASO % 0.1 % (0-2.0); HEMOGLOBIN 10.7 GM/dL (10.7-15.3); LYMPH % 33.8 % (8-40); MCH 30.6 pg (25.7-33.7); MCHC 34.5 g/dl (32.0-36.0); MEAN CELL VOLUME 88.7 fl (80-96); MEAN PLT VOLUME 9.1 fl (7.5-11.1); MONO % 11.5 % (3.8-10.2); NEUT % 54.6 % (42.8-82.8); RBC 3.49 M/mm3 (3.60-5.2); WHITE BLOOD COUNT 4.5 K/mm3 (4.0-10.0)
[2019-05-30 09:40] LABS: ALBUMIN 2.2 g/dl (3.4-5.0); BILIRUBIN,TOTAL 0.2 mg/dL (0.2-1); CALCIUM 8.4 mg/dL (8.5-10.1); CREATININE 0.7 mg/dL (0.55-1.3); POTASSIUM 4.3 mmol/L (3.5-5.1); TOT PROT 5.9 g/dl (6.4-8.2)
[2019-05-30 10:05] LABS: PLATELET COUNT 168 K/MM3 (134-434)
[2019-05-30] MEDS: SELENIUM SULFIDE 2.5% LOTION 4 OZ. TP SCH (10:13)
[2019-05-30] MEDS: BACITRACIN/POLYMYXIN B SULFATE 15 GM TUBE TP SCH ×2 (10:14→22:43)
[2019-05-30] MEDS: PRENATAL VITAMINS W/ FOLIC ACID TABLET (FP) PO SCH (10:14)
[2019-05-30] MEDS: LISINOPRIL 10 MG TABLET (FP) PO SCH (10:14)
--- NOTE | 2019-05-30 15:12 | PN ---
S CIWA - CIWA Score Nausea/Vomitin-No Nausea/No Vomiting Muscle Tremors: 2 Anxiety: 3 Agitation: 3 Paroxysmal Sweats: 1-Minimal Palms Moist Orientation: 0-Oriented Tacttile Disturbances: 0-None Auditory Disturbances: 0-None Visual Disturbances: 0-None Headache: 0-None Present CIWA-Ar Total Score: 9 BHS Progress Note (SOAP) Subjective: DETOX PROCEEDING PER PROTOCOL. MEDS EFFECTIVE FOR SX. Objective: 05/30/19 15:15 Vital Signs 05/30/19 05/30/19 09:39 13:56 Temperature 97.5 F L 95.4 F L Pulse Rate 77 86 Respiratory 18 18 Rate Blood Pressure 112/68 104/87 Laboratory Tests 05/28/19 05/28/19 05/28/19 13:23 16:43 20:51 WBC RBC Hgb Hct MCV MCH MCHC RDW Plt Count MPV Absolute Neuts (auto) Neutrophils % Lymphocytes % Monocytes % Eosinophils % Basophils % Nucleated RBC % Sodium Potassium Chloride Carbon Dioxide Anion Gap BUN Creatinine Est GFR (CKD-EPI)AfAm Est GFR (CKD-EPI)NonAf POC Glucometer 515 > 600 536 Random Glucose Calcium Total Bilirubin AST ALT Alkaline Phosphatase Total Protein Albumin RPR Titer 05/29/19 05/29/19 05/29/19 05:39 07:50 11:40 WBC RBC Hgb Hct MCV MCH MCHC RDW Plt Count MPV Absolute Neuts (auto) Neutrophils % Lymphocytes % Monocytes % Eosinophils % Basophils % Nucleated RBC % Sodium Potassium Chloride Carbon Dioxide Anion Gap BUN Creatinine Est GFR (CKD-EPI)AfAm Est GFR (CKD-EPI)NonAf POC Glucometer 526 567 Random Glucose Calcium Total Bilirubin AST ALT Alkaline Phosphatase Total Protein Albumin RPR Titer Nonreactive 05/29/19 05/29/19 05/29/19 17:01 22:40 23:54 WBC RBC Hgb Hct MCV MCH MCHC RDW Plt Count MPV Absolute Neuts (auto) Neutrophils % Lymphocytes % Monocytes % Eosinophils % Basophils % Nucleated RBC % Sodium Potassium Chloride Carbon Dioxide Anion Gap BUN Creatinine Est GFR (CKD-EPI)AfAm Est GFR (CKD-EPI)NonAf POC Glucometer 540 > 600 479 Random Glucose Calcium Total Bilirubin AST ALT Alkaline Phosphatase Total Protein Albumin RPR Titer 05/30/19 05/30/19 05/30/19 06:30 07:30 07:30 WBC 4.5 RBC 3.49 L Hgb 10.7 Hct 31.0 L D MCV 88.7 MCH 30.6 MCHC 34.5 RDW 15.0 D Plt Count 168 MPV 9.1 Absolute Neuts (auto) 2.5 Neutrophils % 54.6 Lymphocytes % 33.8 Monocytes % 11.5 H Eosinophils % 0.0 D Basophils % 0.1 Nucleated RBC % 0 Sodium 136 Potassium 4.3 Chloride 108 H Carbon Dioxide 22 Anion Gap 7 L BUN 25.0 H Creatinine 0.7 Est GFR (CKD-EPI)AfAm 120.43 Est GFR (CKD-EPI)NonAf 103.90 POC Glucometer 438 Random Glucose 418 H* Calcium 8.4 L Total Bilirubin 0.2 AST 29 ALT 52 Alkaline Phosphatase 305 H Total Protein 5.9 L Albumin 2.2 L RPR Titer 05/30/19 10:43 WBC RBC Hgb Hct MCV MCH MCHC RDW Plt Count MPV Absolute Neuts (auto) Neutrophils % Lymphocytes % Monocytes % Eosinophils % Basophils % Nucleated RBC % Sodium Potassium Chloride Carbon Dioxide Anion Gap BUN Creatinine Est GFR (CKD-EPI)AfAm Est GFR (CKD-EPI)NonAf POC Glucometer 233 Random Glucose Calcium Total Bilirubin AST ALT Alkaline Phosphatase Total Protein Albumin RPR Titer Assessment: 05/30/19 15:15 WITHDRAWAL SX Plan: CONTINUE DETOX
[2019-05-30] MEDS ORDERED: chlordiazePOXIDE HCL 10 MG CAPSULE PO PRN (17:00)
[2019-05-30] MEDS: chlordiazePOXIDE HCL 10 MG CAPSULE PO SCH ×2 (17:58→22:28)
[2019-05-30] MEDS: THIAMINE HCL 100 MG TABLET (FP) PO SCH (22:28)
[2019-05-30] MEDS: INSULIN (LEVEMIR) 100 UNITS/ML UNITS SQ SCH (22:29)
[2019-05-30] MEDS: MELATONIN 5 MG TABLETS PO PRN (22:32)
[2019-05-31] MEDS: chlordiazePOXIDE HCL 10 MG CAPSULE PO SCH ×3 (05:24→17:34)
[2019-05-31] MEDS ORDERED: INSULIN (NOVOLOG) ASPART 100 UNITS/ML 10ML VIAL ONE (05:38)
[2019-05-31] MEDS ORDERED: INSULIN (NOVOLOG) ASPART 100 UNITS/ML 10ML VIAL SQ ONE (05:40)
[2019-05-31] MEDS: INSULIN SLIDING SCALE (NOVOLOG) 1 VIAL SQ SCH ×4 (07:09→21:42)
[2019-05-31] MEDS: PRENATAL VITAMINS W/ FOLIC ACID TABLET (FP) PO SCH (10:28)
[2019-05-31] MEDS: LISINOPRIL 10 MG TABLET (FP) PO SCH (10:28)
[2019-05-31] MEDS: SELENIUM SULFIDE 2.5% LOTION 4 OZ. TP SCH (10:29)
[2019-05-31] MEDS: BACITRACIN/POLYMYXIN B SULFATE 15 GM TUBE TP SCH ×2 (10:29→21:41)
[2019-05-31] MEDS ORDERED: INSULIN SLIDING SCALE (NOVOLOG) 1 VIAL SQ ONE (11:46)
--- NOTE | 2019-05-31 16:19 | PN ---
S CIWA - CIWA Score Nausea/Vomitin-No Nausea/No Vomiting Muscle Tremors: 3 Anxiety: 4-Mod. Anxious/Guarded Agitation: 3 Paroxysmal Sweats: No Perspiration Orientation: 0-Oriented Tacttile Disturbances: 1-Very Mild Itch/Numbness Auditory Disturbances: 0-None Visual Disturbances: 0-None Headache: 0-None Present CIWA-Ar Total Score: 11 BHS Progress Note (SOAP) Subjective: Anxious, Tremors. Objective: PATIENT A & O X 3, OBSERVED AMBULATING ON UNIT UNASSISTED. IN NO ACUTE DISTRESS. 05/31/19 16:20 Vital Signs Temperature 98.1 F 05/31/19 13:33 Pulse Rate 93 H 05/31/19 13:33 Respiratory Rate 18 05/31/19 13:33 Blood Pressure 166/94 05/31/19 13:33 O2 Sat by Pulse Oximetry (%) Laboratory Tests 05/28/19 05/28/19 05/28/19 13:23 16:43 20:51 WBC RBC Hgb Hct MCV MCH MCHC RDW Plt Count MPV Absolute Neuts (auto) Neutrophils % Lymphocytes % Monocytes % Eosinophils % Basophils % Nucleated RBC % Sodium Potassium Chloride Carbon Dioxide Anion Gap BUN Creatinine Est GFR (CKD-EPI)AfAm Est GFR (CKD-EPI)NonAf POC Glucometer 515 > 600 536 Random Glucose Calcium Total Bilirubin AST ALT Alkaline Phosphatase Total Protein Albumin RPR Titer 05/29/19 05/29/19 05/29/19 05:39 07:50 11:40 WBC RBC Hgb Hct MCV MCH MCHC RDW Plt Count MPV Absolute Neuts (auto) Neutrophils % Lymphocytes % Monocytes % Eosinophils % Basophils % Nucleated RBC % Sodium Potassium Chloride Carbon Dioxide Anion Gap BUN Creatinine Est GFR (CKD-EPI)AfAm Est GFR (CKD-EPI)NonAf POC Glucometer 526 567 Random Glucose Calcium Total Bilirubin AST ALT Alkaline Phosphatase Total Protein Albumin RPR Titer Nonreactive 05/29/19 05/29/19 05/29/19 17:01 22:40 23:54 WBC RBC Hgb Hct MCV MCH MCHC RDW Plt Count MPV Absolute Neuts (auto) Neutrophils % Lymphocytes % Monocytes % Eosinophils % Basophils % Nucleated RBC % Sodium Potassium Chloride Carbon Dioxide Anion Gap BUN Creatinine Est GFR (CKD-EPI)AfAm Est GFR (CKD-EPI)NonAf POC Glucometer 540 > 600 479 Random Glucose Calcium Total Bilirubin AST ALT Alkaline Phosphatase Total Protein Albumin RPR Titer 05/30/19 05/30/19 05/30/19 06:30 07:30 07:30 WBC 4.5 RBC 3.49 L Hgb 10.7 Hct 31.0 L D MCV 88.7 MCH 30.6 MCHC 34.5 RDW 15.0 D Plt Count 168 MPV 9.1 Absolute Neuts (auto) 2.5 Neutrophils % 54.6 Lymphocytes % 33.8 Monocytes % 11.5 H Eosinophils % 0.0 D Basophils % 0.1 Nucleated RBC % 0 Sodium 136 Potassium 4.3 Chloride 108 H Carbon Dioxide 22 Anion Gap 7 L BUN 25.0 H Creatinine 0.7 Est GFR (CKD-EPI)AfAm 120.43 Est GFR (CKD-EPI)NonAf 103.90 POC Glucometer 438 Random Glucose 418 H* Calcium 8.4 L Total Bilirubin 0.2 AST 29 ALT 52 Alkaline Phosphatase 305 H Total Protein 5.9 L Albumin 2.2 L RPR Titer 05/30/19 05/30/19 05/30/19 10:43 16:50 22:27 WBC RBC Hgb Hct MCV MCH MCHC RDW Plt Count MPV Absolute Neuts (auto) Neutrophils % Lymphocytes % Monocytes % Eosinophils % Basophils % Nucleated RBC % Sodium Potassium Chloride Carbon Dioxide Anion Gap BUN Creatinine Est GFR (CKD-EPI)AfAm Est GFR (CKD-EPI)NonAf POC Glucometer 233 376 522 Random Glucose Calcium Total Bilirubin AST ALT Alkaline Phosphatase Total Protein Albumin RPR Titer 05/31/19 05/31/19 05/31/19 05:25 07:31 11:40 WBC RBC Hgb Hct MCV MCH MCHC RDW Plt Count MPV Absolute Neuts (auto) Neutrophils % Lymphocytes % Monocytes % Eosinophils % Basophils % Nucleated RBC % Sodium Potassium Chloride Carbon Dioxide Anion Gap BUN Creatinine Est GFR (CKD-EPI)AfAm Est GFR (CKD-EPI)NonAf POC Glucometer 585 490 481 Random Glucose Calcium Total Bilirubin AST ALT Alkaline Phosphatase Total Protein Albumin RPR Titer LABS NOTED. Assessment: 05/31/19 16:23 WITHDRAWAL SYMPTOMS. HYPERGLYCEMIA. ELEVATED ALKALINE PHOSPHATASE LEVEL. 05/31/19 16:25 Plan: CONTINUE DETOX. INCREASE DAILY PO WATER INTAKE. PATIENT SCHEDULED FOR DISCHARGE FROM DETOX UNIT TOMORROW.
[2019-05-31] MEDS: MAG HYDROX/AL HYDROX/SIMETH 30 ML UNIT-DOSE CUP PO PRN (19:24)
[2019-05-31] MEDS ORDERED: RANITIDINE HCL 150 MG TABLET (FP) PO ONE (19:28)
[2019-05-31] MEDS: INSULIN (LEVEMIR) 100 UNITS/ML UNITS SQ SCH (21:37)
[2019-05-31] MEDS: THIAMINE HCL 100 MG TABLET (FP) PO SCH (21:41)
[2019-06-01] MEDS: chlordiazePOXIDE HCL 10 MG CAPSULE PO SCH ×2 (06:08→16:47)
[2019-06-01] MEDS: INSULIN SLIDING SCALE (NOVOLOG) 1 VIAL SQ SCH ×4 (07:45→22:20)
[2019-06-01] MEDS: PRENATAL VITAMINS W/ FOLIC ACID TABLET (FP) PO SCH (10:15)
[2019-06-01] MEDS: LISINOPRIL 10 MG TABLET (FP) PO SCH (10:15)
[2019-06-01] MEDS: BACITRACIN/POLYMYXIN B SULFATE 15 GM TUBE TP SCH ×2 (10:15→22:19)
[2019-06-01] MEDS: SELENIUM SULFIDE 2.5% LOTION 4 OZ. TP SCH (10:15)
[2019-06-01] MEDS ORDERED: INSULIN SLIDING SCALE (NOVOLOG) 1 VIAL SQ ONE ×2 (11:06→20:37)
--- NOTE | 2019-06-01 12:13 | PN ---
S CIWA - CIWA Score Nausea/Vomitin-Mild Nausea/No Vomiting Muscle Tremors: 2 Anxiety: 1-Mildly Anxious Agitation: 1-Slight > Activity Paroxysmal Sweats: No Perspiration Orientation: 0-Oriented Tacttile Disturbances: 0-None Auditory Disturbances: 0-None Visual Disturbances: 0-None Headache: 0-None Present CIWA-Ar Total Score: 5 BHS Progress Note (SOAP) Subjective: pt states she is ready to go to rehab, pt has been refusing BGM b/c she states she was sleeping. recent f/s> 500, pt without hyperglycemic Sx. Is on levemir O: Vital Signs - 24 hr 05/31/19 05/31/19 06/01/19 13:33 19:56 00:30 Temperature 98.1 F 97.8 F Pulse Rate 93 H 92 H Respiratory 18 16 18 Rate Blood Pressure 166/94 157/91 06/01/19 06/01/19 06:13 09:09 Temperature 97.9 F 96.7 F L Pulse Rate 79 99 H Respiratory 18 18 Rate Blood Pressure 130/76 132/83 Laboratory Tests 05/28/19 05/28/19 05/28/19 13:23 16:43 20:51 WBC RBC Hgb Hct MCV MCH MCHC RDW Plt Count MPV Absolute Neuts (auto) Neutrophils % Lymphocytes % Monocytes % Eosinophils % Basophils % Nucleated RBC % Sodium Potassium Chloride Carbon Dioxide Anion Gap BUN Creatinine Est GFR (CKD-EPI)AfAm Est GFR (CKD-EPI)NonAf POC Glucometer 515 > 600 536 Random Glucose Calcium Total Bilirubin AST ALT Alkaline Phosphatase Total Protein Albumin RPR Titer 05/29/19 05/29/19 05/29/19 05:39 07:50 11:40 WBC RBC Hgb Hct MCV MCH MCHC RDW Plt Count MPV Absolute Neuts (auto) Neutrophils % Lymphocytes % Monocytes % Eosinophils % Basophils % Nucleated RBC % Sodium Potassium Chloride Carbon Dioxide Anion Gap BUN Creatinine Est GFR (CKD-EPI)AfAm Est GFR (CKD-EPI)NonAf POC Glucometer 526 567 Random Glucose Calcium Total Bilirubin AST ALT Alkaline Phosphatase Total Protein Albumin RPR Titer Nonreactive 05/29/19 05/29/19 05/29/19 17:01 22:40 23:54 WBC RBC Hgb Hct MCV MCH MCHC RDW Plt Count MPV Absolute Neuts (auto) Neutrophils % Lymphocytes % Monocytes % Eosinophils % Basophils % Nucleated RBC % Sodium Potassium Chloride Carbon Dioxide Anion Gap BUN Creatinine Est GFR (CKD-EPI)AfAm Est GFR (CKD-EPI)NonAf POC Glucometer 540 > 600 479 Random Glucose Calcium Total Bilirubin AST ALT Alkaline Phosphatase Total Protein Albumin RPR Titer 05/30/19 05/30/19 05/30/19 06:30 07:30 07:30 WBC 4.5 RBC 3.49 L Hgb 10.7 Hct 31.0 L D MCV 88.7 MCH 30.6 MCHC 34.5 RDW 15.0 D Plt Count 168 MPV 9.1 Absolute Neuts (auto) 2.5 Neutrophils % 54.6 Lymphocytes % 33.8 Monocytes % 11.5 H Eosinophils % 0.0 D Basophils % 0.1 Nucleated RBC % 0 Sodium 136 Potassium 4.3 Chloride 108 H Carbon Dioxide 22 Anion Gap 7 L BUN 25.0 H Creatinine 0.7 Est GFR (CKD-EPI)AfAm 120.43 Est GFR (CKD-EPI)NonAf 103.90 POC Glucometer 438 Random Glucose 418 H* Calcium 8.4 L Total Bilirubin 0.2 AST 29 ALT 52 Alkaline Phosphatase 305 H Total Protein 5.9 L Albumin 2.2 L RPR Titer 05/30/19 05/30/19 05/30/19 10:43 16:50 22:27 WBC RBC Hgb Hct MCV MCH MCHC RDW Plt Count MPV Absolute Neuts (auto) Neutrophils % Lymphocytes % Monocytes % Eosinophils % Basophils % Nucleated RBC % Sodium Potassium Chloride Carbon Dioxide Anion Gap BUN Creatinine Est GFR (CKD-EPI)AfAm Est GFR (CKD-EPI)NonAf POC Glucometer 233 376 522 Random Glucose Calcium Total Bilirubin AST ALT Alkaline Phosphatase Total Protein Albumin RPR Titer 05/31/19 05/31/19 05/31/19 05:25 07:31 11:40 WBC RBC Hgb Hct MCV MCH MCHC RDW Plt Count MPV Absolute Neuts (auto) Neutrophils % Lymphocytes % Monocytes % Eosinophils % Basophils % Nucleated RBC % Sodium Potassium Chloride Carbon Dioxide Anion Gap BUN Creatinine Est GFR (CKD-EPI)AfAm Est GFR (CKD-EPI)NonAf POC Glucometer 585 490 481 Random Glucose Calcium Total Bilirubin AST ALT Alkaline Phosphatase Total Protein Albumin RPR Titer 05/31/19 06/01/19 19:34 11:03 WBC RBC Hgb Hct MCV MCH MCHC RDW Plt Count MPV Absolute Neuts (auto) Neutrophils % Lymphocytes % Monocytes % Eosinophils % Basophils % Nucleated RBC % Sodium Potassium Chloride Carbon Dioxide Anion Gap BUN Creatinine Est GFR (CKD-EPI)AfAm Est GFR (CKD-EPI)NonAf POC Glucometer 395 537 Random Glucose Calcium Total Bilirubin AST ALT Alkaline Phosphatase Total Protein Albumin RPR Titer a/p: pt almost completed alcohol detox blood sugar continues to be high: sliding scale insulin, dietitian to talk to pt about food intake to rehab today
[2019-06-01] MEDS ORDERED: INSULIN (NOVOLOG) ASPART 100 UNITS/ML 10ML VIAL SQ ONE (20:28)
--- NOTE | 2019-06-01 21:56 | PN ---
BHS Progress Note Note: Pt with consistently high BGM this afternoon/evening: "hi" and 500's. Pt has been awake and alert and ambulatory. Will check f/s every hour and give insulin doses as needed.
[2019-06-01] MEDS: PANTOPRAZOLE 20 MG TABLET (FP) PO SCH (22:19)
[2019-06-01] MEDS: THIAMINE HCL 100 MG TABLET (FP) PO SCH (22:20)
[2019-06-01] MEDS: INSULIN (LEVEMIR) 100 UNITS/ML UNITS SQ SCH (22:21)
[2019-06-01] MEDS: METHOCARBAMOL 500 MG TABLET PO PRN (22:23)
[2019-06-02] MEDS: MAG HYDROX/AL HYDROX/SIMETH 30 ML UNIT-DOSE CUP PO PRN ×2 (00:48→09:43)
[2019-06-02] MEDS: INSULIN SLIDING SCALE (NOVOLOG) 1 VIAL SQ SCH ×4 (07:56→21:37)
[2019-06-02] MEDS ORDERED: INSULIN SLIDING SCALE (NOVOLOG) 1 VIAL SQ ONE (07:58)
[2019-06-02] MEDS: LISINOPRIL 10 MG TABLET (FP) PO SCH (09:40)
[2019-06-02] MEDS: PANTOPRAZOLE 20 MG TABLET (FP) PO SCH ×2 (09:40→21:40)
[2019-06-02] MEDS: PRENATAL VITAMINS W/ FOLIC ACID TABLET (FP) PO SCH (09:40)
[2019-06-02] MEDS: SELENIUM SULFIDE 2.5% LOTION 4 OZ. TP SCH (09:41)
[2019-06-02] MEDS: BACITRACIN/POLYMYXIN B SULFATE 15 GM TUBE TP SCH ×2 (09:49→21:40)
--- NOTE | 2019-06-02 11:13 | DS ---
[facility] Detox Discharge Summary Admission Date: 05/28/19 Discharge Date: 06/02/19 - History Present History: Alcohol Dependence Additional Comments: PATIENT GOING TO [facility] ([place], [place]) FOR AFTERCARE. DUE TO ELEVATED ALKALINE PHOSPHATASE LEVEL NOTED ON DETOX ADMISSION LABORATORY ASSESSMENT, LEVEL WILL BE RE-CHECKED WHILE PATIENT IS ADMITTED FOR REHAB. PATIENT WAS DISCHARGED FROM DETOX UNIT TO BE TAKEN OVER TO REHAB UNIT IN STABLE MEDICAL CONDITION. Pertinent Past History: HTN, IDDM, Elevated Alkaline Phosphatase Level, Anemia, Hyperglycemia. - Physical Exam Results Vital Signs: Vital Signs Temperature 97.4 F L 06/02/19 09:32 Pulse Rate 101 H 06/02/19 09:32 Respiratory Rate 20 06/02/19 09:32 Blood Pressure 144/86 06/02/19 09:32 O2 Sat by Pulse Oximetry (%) Pertinent Admission Physical Exam Findings: WITHDRAWAL SYMPTOMS. Laboratory Tests 05/28/19 05/28/19 05/28/19 13:23 16:43 20:51 WBC RBC Hgb Hct MCV MCH MCHC RDW Plt Count MPV Absolute Neuts (auto) Neutrophils % Lymphocytes % Monocytes % Eosinophils % Basophils % Nucleated RBC % Sodium Potassium Chloride Carbon Dioxide Anion Gap BUN Creatinine Est GFR (CKD-EPI)AfAm Est GFR (CKD-EPI)NonAf POC Glucometer 515 > 600 536 Random Glucose Calcium Total Bilirubin AST ALT Alkaline Phosphatase Total Protein Albumin RPR Titer 05/29/19 05/29/19 05/29/19 05:39 07:50 11:40 WBC RBC Hgb Hct MCV MCH MCHC RDW Plt Count MPV Absolute Neuts (auto) Neutrophils % Lymphocytes % Monocytes % Eosinophils % Basophils % Nucleated RBC % Sodium Potassium Chloride Carbon Dioxide Anion Gap BUN Creatinine Est GFR (CKD-EPI)AfAm Est GFR (CKD-EPI)NonAf POC Glucometer 526 567 Random Glucose Calcium Total Bilirubin AST ALT Alkaline Phosphatase Total Protein Albumin RPR Titer Nonreactive 05/29/19 05/29/19 05/29/19 17:01 22:40 23:54 WBC RBC Hgb Hct MCV MCH MCHC RDW Plt Count MPV Absolute Neuts (auto) Neutrophils % Lymphocytes % Monocytes % Eosinophils % Basophils % Nucleated RBC % Sodium Potassium Chloride Carbon Dioxide Anion Gap BUN Creatinine Est GFR (CKD-EPI)AfAm Est GFR (CKD-EPI)NonAf POC Glucometer 540 > 600 479 Random Glucose Calcium Total Bilirubin AST ALT Alkaline Phosphatase Total Protein Albumin RPR Titer 05/30/19 05/30/19 05/30/19 06:30 07:30 07:30 WBC 4.5 RBC 3.49 L Hgb 10.7 Hct 31.0 L D MCV 88.7 MCH 30.6 MCHC 34.5 RDW 15.0 D Plt Count 168 MPV 9.1 Absolute Neuts (auto) 2.5 Neutrophils % 54.6 Lymphocytes % 33.8 Monocytes % 11.5 H Eosinophils % 0.0 D Basophils % 0.1 Nucleated RBC % 0 Sodium 136 Potassium 4.3 Chloride 108 H Carbon Dioxide 22 Anion Gap 7 L BUN 25.0 H Creatinine 0.7 Est GFR (CKD-EPI)AfAm 120.43 Est GFR (CKD-EPI)NonAf 103.90 POC Glucometer 438 Random Glucose 418 H* Calcium 8.4 L Total Bilirubin 0.2 AST 29 ALT 52 Alkaline Phosphatase 305 H Total Protein 5.9 L Albumin 2.2 L RPR Titer 05/30/19 05/30/19 05/30/19 10:43 16:50 22:27 WBC RBC Hgb Hct MCV MCH MCHC RDW Plt Count MPV Absolute Neuts (auto) Neutrophils % Lymphocytes % Monocytes % Eosinophils % Basophils % Nucleated RBC % Sodium Potassium Chloride Carbon Dioxide Anion Gap BUN Creatinine Est GFR (CKD-EPI)AfAm Est GFR (CKD-EPI)NonAf POC Glucometer 233 376 522 Random Glucose Calcium Total Bilirubin AST ALT Alkaline Phosphatase Total Protein Albumin RPR Titer 05/31/19 05/31/19 05/31/19 05:25 07:31 11:40 WBC RBC Hgb Hct MCV MCH MCHC RDW Plt Count MPV Absolute Neuts (auto) Neutrophils % Lymphocytes % Monocytes % Eosinophils % Basophils % Nucleated RBC % Sodium Potassium Chloride Carbon Dioxide Anion Gap BUN Creatinine Est GFR (CKD-EPI)AfAm Est GFR (CKD-EPI)NonAf POC Glucometer 585 490 481 Random Glucose Calcium Total Bilirubin AST ALT Alkaline Phosphatase Total Protein Albumin RPR Titer 05/31/19 06/01/19 06/01/19 19:34 11:03 16:29 WBC RBC Hgb Hct MCV MCH MCHC RDW Plt Count MPV Absolute Neuts (auto) Neutrophils % Lymphocytes % Monocytes % Eosinophils % Basophils % Nucleated RBC % Sodium Potassium Chloride Carbon Dioxide Anion Gap BUN Creatinine Est GFR (CKD-EPI)AfAm Est GFR (CKD-EPI)NonAf POC Glucometer 395 537 > 600 Random Glucose Calcium Total Bilirubin AST ALT Alkaline Phosphatase Total Protein Albumin RPR Titer 06/01/19 06/01/19 06/02/19 20:07 21:52 07:51 WBC RBC Hgb Hct MCV MCH MCHC RDW Plt Count MPV Absolute Neuts (auto) Neutrophils % Lymphocytes % Monocytes % Eosinophils % Basophils % Nucleated RBC % Sodium Potassium Chloride Carbon Dioxide Anion Gap BUN Creatinine Est GFR (CKD-EPI)AfAm Est GFR (CKD-EPI)NonAf POC Glucometer > 600 537 278 Random Glucose Calcium Total Bilirubin AST ALT Alkaline Phosphatase Total Protein Albumin RPR Titer LABS NOTED. - Treatment Hospital Course: Detox Protocol Followed, Detoxed Safely, Responded well, Discharged Condition Good, Rehab Referral Accepted Patient has Accepted a Rehab Referral to: [facility] ([place], [place]). - Medication Discharge Medications: Ambulatory Orders Esomeprazole Magnesium [Nexium 24Hr] 40 mg PO BID 11/09/18 Lisinopril [Prinivil] 10 mg PO DAILY 30 Days #30 tablet 11/17/18 Insulin Glargine,Hum.rec.anlog [Lantus Solostar PEN (NF)] 42 units SQ HS Insulin Lispro [Humalog] 100 unit SQ PRN 05/28/19 - Diagnosis (1) Alcohol dependence with uncomplicated withdrawal Current Visit: Yes Status: Acute (2) Anemia Current Visit: Yes Status: Acute Qualifiers: Anemia type: unspecified type Qualified Code(s): D64.9 - Anemia, unspecified (3) Elevated alkaline phosphatase level Current Visit: Yes Status: Acute (4) Hyperglycemia Current Visit: Yes Status: Acute - AMA Did Patient Leave Against Medical Advice: No
--- NOTE | 2019-06-02 11:15 | HP ---
[facility] Rehab Assess/Revision - Admission History Admitted to Rehab from: [facility] Date of Admission to Rehab: 06/02/2019 - Vital signs Vital Signs: Vital Signs Period Temp Pulse Resp BP Sys/Resendez Pulse Ox Last 24 Hr 97.4 F-98.9 F 90-101 16-20 119-149/65-86 - Findings Detox History & Physical reviewed: Yes Concur with findings: Yes Comments/Additional Findings: PATIENT'S MEDICAL / MEDICATION HISTORY REVIEWED PRIOR TO PATIENT BEING DISCHARGED FROM DETOX UNIT. DUE TO ELEVATED ALKALINE PHOSPHATASE LEVEL NOTED ON DETOX ADMISSION LABORATORY ASSESSMENT, LEVEL WILL BE RE-CHECKED WHILE PATIENT IS ADMITTED FOR REHAB. PATIENT WAS DISCHARGED FROM DETOX UNIT TO BE TAKEN TO REHAB UNIT IN STABLE MEDICAL CONDITION. Inpatient Rehab Admission - Rehab Decision to Admit Inpatient rehab admission?: Yes - Initial Determination Are CD services needed?: Yes Free of communicable disease: Yes Not in need of hospitalization: Yes - Rehab Admission Criteria Previous failed treatment: Yes Poor recovery environment: Yes Comorbidities: Yes Lacks judgement: No Patient is meeting Inpatient Rehab admission criteria:: Yes
[2019-06-02] MEDS ORDERED: INSULIN (NOVOLOG) ASPART 100 UNITS/ML 10ML VIAL ONE (16:37)
[2019-06-02] MEDS: THIAMINE HCL 100 MG TABLET (FP) PO SCH (21:33)
[2019-06-02] MEDS: MELATONIN 5 MG TABLETS PO PRN (21:33)
[2019-06-02] MEDS: INSULIN (LEVEMIR) 100 UNITS/ML UNITS SQ SCH (21:36)
[2019-06-02] MEDS ORDERED: PT OWN MED DRAWER 7, Y5N ONE (21:41)
[2019-06-02] MEDS ORDERED: INSULIN (LEVEMIR) 100 UNITS/ML UNITS SQ ONE (23:24)
[2019-06-03] MEDS: INSULIN SLIDING SCALE (NOVOLOG) 1 VIAL SQ SCH ×4 (08:01→21:29)
[2019-06-03] MEDS ORDERED: INSULIN (NOVOLOG) ASPART 100 UNITS/ML 10ML VIAL ONE ×3 (08:02→16:50)
[2019-06-03] MEDS ORDERED: PT OWN MED DRAWER 7, Y5N ONE ×2 (08:56→22:17)
[2019-06-03] MEDS: PRENATAL VITAMINS W/ FOLIC ACID TABLET (FP) PO SCH (10:24)
[2019-06-03] MEDS: PANTOPRAZOLE 20 MG TABLET (FP) PO SCH (10:24)
[2019-06-03] MEDS: LISINOPRIL 10 MG TABLET (FP) PO SCH (10:24)
[2019-06-03] MEDS: BACITRACIN/POLYMYXIN B SULFATE 15 GM TUBE TP SCH ×2 (10:25→21:30)
[2019-06-03] MEDS: SELENIUM SULFIDE 2.5% LOTION 4 OZ. TP SCH ×2 (10:28→15:00)
[2019-06-03] MEDS: SELENIUM SULFIDE 2.25% 180 ML SHAMPOO TP SCH (15:00)
[2019-06-03] MEDS: INSULIN (LEVEMIR) 100 UNITS/ML UNITS SQ SCH (21:28)
[2019-06-03] MEDS: MELATONIN 5 MG TABLETS PO PRN (21:30)
[2019-06-03] MEDS ORDERED: hydrOXYzine PAMOATE 50 MG CAPSULE (FP) PO ONE (21:56)
[2019-06-03] MEDS ORDERED: INSULIN (LEVEMIR) 100 UNITS/ML UNITS SQ ONE (22:18)
[2019-06-03] MEDS: THIAMINE HCL 100 MG TABLET (FP) PO SCH (23:45)
[2019-06-04] MEDS ORDERED: INSULIN (NOVOLOG) ASPART 100 UNITS/ML 10ML VIAL ONE ×4 (07:51→21:50)
[2019-06-04] MEDS: INSULIN SLIDING SCALE (NOVOLOG) 1 VIAL SQ SCH ×4 (07:55→21:31)
[2019-06-04] MEDS: PRENATAL VITAMINS W/ FOLIC ACID TABLET (FP) PO SCH (09:32)
[2019-06-04] MEDS: SELENIUM SULFIDE 2.5% LOTION 4 OZ. TP SCH (09:33)
[2019-06-04] MEDS: RANITIDINE HCL 150 MG TABLET (FP) PO SCH (09:33)
[2019-06-04] MEDS: SELENIUM SULFIDE 2.25% 180 ML SHAMPOO TP SCH (09:33)
[2019-06-04] MEDS: LISINOPRIL 10 MG TABLET (FP) PO SCH (09:33)
[2019-06-04] MEDS: BACITRACIN/POLYMYXIN B SULFATE 15 GM TUBE TP SCH ×2 (09:54→21:30)
--- NOTE | 2019-06-04 11:01 | PN ---
[facility] Progress Note (SOAP) Subjective: BGM consistently elevated. Patient states she that this is normal for her. Stopped metformin many years ago, only treated with insulin. Reports inconsistent adherence and that elevated BGMs are normal for her. Family hx of DM2- both parents and grandparents. Objective: asymptomatic; A+Ox3, heart sounds regular, lungs clear, abd soft, non-tender + BS. Skin clear. 06/04/19 10:58 CBC, BMP 05/30/19 07:30 05/30/19 07:30 Vital Signs (72 hours) 06/01/19 06/01/19 06/01/19 13:25 17:35 21:47 Temperature 98.1 F 98.6 F 98.9 F Pulse Rate 90 93 H 101 H Respiratory 16 18 18 Rate Blood Pressure 142/78 149/85 119/65 06/02/19 06/02/19 06/02/19 00:30 03:30 06:30 Temperature Pulse Rate Respiratory 18 18 18 Rate Blood Pressure 06/02/19 06/03/19 06/03/19 09:32 03:30 07:03 Temperature 97.4 F L 97.8 F Pulse Rate 101 H 85 Respiratory 20 18 18 Rate Blood Pressure 144/86 143/90 06/03/19 06/04/19 06/04/19 09:14 00:30 03:30 Temperature Pulse Rate 89 Respiratory 18 18 18 Rate Blood Pressure 150/91 06/04/19 07:13 Temperature 98.0 F Pulse Rate 88 Respiratory 18 Rate Blood Pressure 143/89 Assessment: Uncontrolled DM2 06/04/19 10:59 Plan: Discussed adherence to diabetic diet and treatment. Will monitor BGM.
[2019-06-04] MEDS ORDERED: PT OWN MED DRAWER 7, Y5N ONE (19:43)
[2019-06-04] MEDS: THIAMINE HCL 100 MG TABLET (FP) PO SCH (21:30)
[2019-06-04] MEDS: INSULIN (LEVEMIR) 100 UNITS/ML UNITS SQ SCH (21:32)
[2019-06-04] MEDS: IBUPROFEN 400 MG TABLET (FP) PO PRN (21:33)
[2019-06-05] MEDS ORDERED: INSULIN (NOVOLOG) ASPART 100 UNITS/ML 10ML VIAL ONE ×3 (07:36→12:57)
[2019-06-05] MEDS: INSULIN SLIDING SCALE (NOVOLOG) 1 VIAL SQ SCH ×3 (07:52→17:53)
[2019-06-05] MEDS ORDERED: PT OWN MED DRAWER 7, Y5N ONE (09:20)
[2019-06-05] MEDS: RANITIDINE HCL 150 MG TABLET (FP) PO SCH (10:13)
[2019-06-05] MEDS: SELENIUM SULFIDE 2.5% LOTION 4 OZ. TP SCH (10:13)
[2019-06-05] MEDS: LISINOPRIL 10 MG TABLET (FP) PO SCH (10:13)
[2019-06-05] MEDS: PRENATAL VITAMINS W/ FOLIC ACID TABLET (FP) PO SCH (10:13)
[2019-06-05] MEDS: SELENIUM SULFIDE 2.25% 180 ML SHAMPOO TP SCH (10:14)
[2019-06-05] MEDS: BACITRACIN/POLYMYXIN B SULFATE 15 GM TUBE TP SCH (10:15)
[2019-06-05] MEDS ORDERED: LACTULOSE 20 GM/30 ML UDC (FOR ORAL USE ONLY) PO ONE (12:26)
[2019-06-05] MEDS ORDERED: INSULIN (NOVOLOG) ASPART 100 UNITS/ML 10ML VIAL SQ ONE (12:48)
--- NOTE | 2019-06-05 13:10 | PN ---
[facility] Progress Note Note: called to evaluate patient with elevated bgm history of iddm,uncontrolled dm,cirrhosis of liver hypertension alert,oriented x 3 dry lip and mucosa heart normal heart sound lung clear,no wheezing abdomen soft,no distension,no tenderness no calf tendernessadditi Vital Signs Temperature 97.9 F 06/05/19 07:30 Pulse Rate 97 H 06/05/19 09:19 Respiratory Rate 18 06/05/19 07:30 Blood Pressure 154/81 06/05/19 09:19 O2 Sat by Pulse Oximetry (%) Laboratory Last Values WBC 4.5 K/mm3 (4.0-10.0) 05/30/19 07:30 RBC 3.49 M/mm3 (3.60-5.2) L 05/30/19 07:30 Hgb 10.7 GM/dL (10.7-15.3) 05/30/19 07:30 Hct 31.0 % (32.4-45.2) L D 05/30/19 07:30 MCV 88.7 fl (80-96) 05/30/19 07:30 MCH 30.6 pg (25.7-33.7) 05/30/19 07:30 MCHC 34.5 g/dl (32.0-36.0) 05/30/19 07:30 RDW 15.0 % (11.6-15.6) D 05/30/19 07:30 Plt Count 168 K/MM3 (134-434) 05/30/19 07:30 MPV 9.1 fl (7.5-11.1) 05/30/19 07:30 Absolute Neuts (auto) 2.5 K/mm3 (1.5-8.0) 05/30/19 07:30 Neutrophils % 54.6 % (42.8-82.8) 05/30/19 07:30 Lymphocytes % 33.8 % (8-40) 05/30/19 07:30 Monocytes % 11.5 % (3.8-10.2) H 05/30/19 07:30 Eosinophils % 0.0 % (0-4.5) D 05/30/19 07:30 Basophils % 0.1 % (0-2.0) 05/30/19 07:30 Nucleated RBC % 0 % (0-0) 05/30/19 07:30 Sodium 136 mmol/L (136-145) 05/30/19 07:30 Potassium 4.3 mmol/L (3.5-5.1) 05/30/19 07:30 Chloride 108 mmol/L (98-107) H 05/30/19 07:30 Carbon Dioxide 22 mmol/L (21-32) 05/30/19 07:30 Anion Gap 7 MMOL/L (8-16) L 05/30/19 07:30 BUN 25.0 mg/dL (7-18) H 05/30/19 07:30 Creatinine 0.7 mg/dL (0.55-1.3) 05/30/19 07:30 Est GFR (CKD-EPI)AfAm 120.43 05/30/19 07:30 Est GFR (CKD-EPI)NonAf 103.90 05/30/19 07:30 POC Glucometer > 600 UNITS (80-120) 06/05/19 12:46 Random Glucose 418 mg/dL (74-106) H* 05/30/19 07:30 Calcium 8.4 mg/dL (8.5-10.1) L 05/30/19 07:30 Total Bilirubin 0.2 mg/dL (0.2-1) 05/30/19 07:30 AST 29 U/L (15-37) 05/30/19 07:30 ALT 52 U/L (13-61) 05/30/19 07:30 Alkaline Phosphatase 305 U/L (45-117) H 05/30/19 07:30 Ammonia 357.50 umol/L (11-32) H 06/05/19 08:00 Total Protein 5.9 g/dl (6.4-8.2) L 05/30/19 07:30 Albumin 2.2 g/dl (3.4-5.0) L 05/30/19 07:30 RPR Titer Nonreactive (NONREACTIVE) 05/29/19 07:50 novolog 10 units sq in addition to 12 units sq at 12.30 pm ammonia level is 357.50 lactulose 20 grams po ordered and qid history of hepatic encephalopathy in the past impression uncontrolled diabetes iddm r/o hepatic encephalopathy dehydration high ammonia level cirrhosis of liver history hypertension treatment to [facility] for evaluation and treatment,spoke with , to be transported by [facility] bp 161/85,p94,r18,t 98
[2019-06-05 13:30] VITALS: BP 161/85; PULSE 94; TEMP 98
[2019-06-05] MEDS: LACTULOSE 20 GM/30 ML UDC (FOR ORAL USE ONLY) PO SCH ×2 (14:00→17:53)
== END 2019-06-05 22:31 | disposition hospice, inpatient (51) | DRG 895 ==
LOC: YASAS 10:22 → Y3N 12:58 → Y3E 06-02 12:46
PROVIDERS: ADMIT Surgery; ATTEND Neuromusculoskeletal Medicine & OMM
PROC: HZ2ZZZZ Detoxification Services for Substance Abuse Treatment (ICD-10-PCS; 2019-05-28)
PROC: HZ42ZZZ Group Counseling for Substance Abuse Treatment, Cognitive-Behavioral (ICD-10-PCS; principal; 2019-06-02)
DX: F10.20 Alcohol dependence, uncomplicated (principal); E72.20 Disorder of urea cycle metabolism, unspecified; F14.10 Cocaine abuse, uncomplicated; D64.9 Anemia, unspecified; I10 Essential (primary) hypertension; E10.65 Type 1 diabetes mellitus with hyperglycemia; Z79.4 Long term (current) use of insulin; E86.0 Dehydration; Z91.013 Allergy to seafood
CPT/HCPCS: 36415; 80053; 82140; 82962; 85025; 86593; 99285-25

== ENCOUNTER 2019-06-05 14:14 | Emergency (ER) | payer OTHER ==
[2019-06-05 14:37] VITALS: BP 142/92; PULSE 90; TEMP 98.4; BMI 32.5
--- NOTE | 2019-06-05 15:48 | PDOC ---
History of Present Illness - General Chief Complaint: Abnormal Lab Results (Outside) Stated Complaint: BLOOD PRESSURE PROBLEM Time Seen by Provider: 06/05/19 14:41 History Source: Patient Exam Limitations: No Limitations - History of Present Illness Initial Comments: 48 yo F PMH GERD, alcohol abuse, IDDM, TIPS procedure, cholecystectomy, appendectomy, MRSA X17, MSSA X4, osteomyelitis in coccyx and foot, peripheral neuropathy, sent from [facility] w/ elevated blood sugars and elevated ammonia levels. Reports getting lost multiple times over the past couple of days, similar to previous episodes of hepatic encephalopathy. Also states that the glucometer said her sugars were "high", indicating that it must be over 600. She is AAOX4 currently (year, name, day, math (5X20)). Patient has her care primarily in the [place] (mostly [place], also [facility]) and would like to have case management talk to her to get her transferred there. Patient takes 42 units of insulin at night and a Humalog sliding scale during the day. Denies URIBE , CP, SOB, N/V, constipation/diarrhea, fevers/chills. Endorses some confusion. 06/05/19 15:37 Past History - Past Medical History Allergies/Adverse Reactions: Allergies Allergy/AdvReac Type Severity Reaction Status Date / Time fish derived Allergy Severe Swelling Verified 05/28/19 11:31 shellfish derived Allergy Severe Swelling Verified 05/28/19 11:31 No Known Drug Allergies Allergy Verified 05/28/19 11:31 SEAFOOD Allergy Severe Swelling Uncoded 05/28/19 11:31 Home Medications: Ambulatory Orders Esomeprazole Magnesium [Nexium 24Hr] 40 mg PO BID 11/09/18 Lisinopril [Prinivil] 10 mg PO DAILY 30 Days #30 tablet 11/17/18 Insulin Glargine,Hum.rec.anlog [Lantus Solostar PEN (NF)] 42 units SQ HS Insulin Lispro [Humalog] 100 unit SQ ASDIR PRN 05/28/19 Anemia: No Asthma: No Cancer: No Cardiac Disorders: No CVA: No COPD: No CHF: No DVT: No Dementia: No Diabetes: Yes GI Disorders: Yes Disorders: No HTN: Yes Hypercholesterolemia: No Kidney Stones: No Liver Disease: No Seizures: No Thyroid Disease: No - Surgical History Abdominal Surgery: Yes (TUBAL LIGATION IN 2006) Appendectomy: Yes (10/25/17) Cardiac Surgery: No Cholecystectomy: Yes (lap ) Lung Surgery: No Neurologic Surgery: No Orthopedic Surgery: Yes (neck, 11/30/2015 (fall);SX COCYX DUE TO OSTEOMYLITIS- 2010) - Reproductive History PID: No - Immunization History Immunization Up to Date: No - Suicide/Smoking/Psychosocial Hx Smoking History: Never smoked Have you smoked in the past 12 months: No Number of Cigarettes Smoked Daily: 0 Cigars Per Day: 0 Information on smoking cessation initiated: No 'Breaking Loose' booklet given: 05/30/16 Hx Alcohol Use: Yes Drug/Substance Use Hx: No Substance Use Type: Alcohol, Cocaine Hx Substance Use Treatment: No *Physical Exam - Vital Signs Last Vital Signs Temp Pulse Resp BP Pulse Ox 98.4 F 90 18 142/92 97 06/05/19 14:34 06/05/19 14:34 06/05/19 14:34 06/05/19 14:34 06/05/19 14:34 - Physical Exam General Appearance: Yes: Nourished, Appropriately Dressed HEENT: positive: EOMI, HIGINIO, Normal ENT Inspection, Normal Voice Neck: positive: Normal Thyroid, Supple Respiratory/Chest: positive: Lungs Clear, Normal Breath Sounds Cardiovascular: positive: Regular Rhythm, Regular Rate, Murmur Gastrointestinal/Abdominal: positive: Normal Bowel Sounds, Soft Musculoskeletal: positive: Normal Inspection. negative: CVA Tenderness Extremity: positive: Normal Inspection. 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 Will check POC glucose, get CBC, CMP, and start lactulose. Will also give sliding scale of insulin for elevated sugars. 06/05/19 15:49 Patient discussion at bedside. She refuses to remain in this hospital for treatment, instead wishing to go back to the [facility]. She was made aware of the risks of leaving without proper treatment, including and disability. She is alert and oriented, competent to make this decision. She requested that we get her belongings from [place]. Security was contacted to bring her things to the ED. 06/05/19 16:33 *DC/Admit/Observation/Transfer Diagnosis at time of Disposition: Increased ammonia level, Elevated glucose level - Discharge Dispostion Disposition: AGAINST MEDICAL ADVICE Condition at time of disposition: Guarded Decision to Admit order: No - Referrals - Patient Instructions Printed Discharge Instructions: DI for Hyperglycemia -- Adult, DI for Hepatic Encephalopathy - Post Discharge Activity
[2019-06-05] MEDS ORDERED: LACTULOSE 20 GM/30 ML UDC (FOR ORAL USE ONLY) PO ONE (16:05)
--- NOTE | 2019-06-05 16:22 | PDOC ---
Documentation entered by Nora Sebastian SCRIBE, acting as scribe for Janeen Pulido MD. Janeen Pulido MD: This documentation has been prepared by the Jaz cuello Mackenzie, SCRIBE, under my direction and personally reviewed by me in its entirety. I confirm that the documentation accurately reflects all work , treatment, procedures, and medical decision making performed by me. Attending Attestation - Resident Resident Name: MannCristiano - ED Attending Attestation I have performed the following: I have examined & evaluated the patient, The case was reviewed & discussed with the resident, I agree w/resident's findings & plan, Exceptions are as noted - HPI HPI: The patient is a 48 year old female, with a significant PMH of IDDM, Hepatic encephalopathy, MRSA (17 times), peripheral neuropathy, and ETOH dependence who presents to the emergency department from [facility] with increased blood sugar and ammonia levels. Patient reports intermittent states of confusion described as a sense of feeling lost while trying to find her way around [facility]. Patient reports taking 42 units of insulin at night. History is limited because patient is a poor historian. The patient denies chest pain, shortness of breath, headache and dizziness. Denies fever, chills, nausea, vomiting, diarrhea and constipation. Denies dysuria, frequency, urgency and hematuria. Allergies: NKDA Past surgical history: As per resident note Social history: as noted above PCP: None reported 06/05/19 16:12 - Physicial Exam PE: GENERAL: Awake, alert, and fully oriented, in no acute distress HEAD: No signs of trauma EYES: PERRLA, EOMI, sclera anicteric, conjunctiva clear ENT: Auricles normal inspection, hearing grossly normal, nares patent, oropharynx clear without exudates. Moist mucosa NECK: Normal ROM, supple, no lymphadenopathy, JVD, or masses LUNGS: Breath sounds equal, clear to auscultation bilaterally. No wheezes, and no crackles HEART: Regular rate and rhythm, normal S1 and S2, no murmurs, rubs or gallops ABDOMEN: Soft, nontender, normoactive bowel sounds. No guarding, no rebound. No masses EXTREMITIES: Normal range of motion, no edema. No clubbing or cyanosis. No cords, erythema, or tenderness NEUROLOGICAL: Cranial nerves II through XII grossly intact. Normal speech, normal gait. Motor and sensation intact SKIN: Warm, dry, normal turgor, no rashes or lesions noted. - Medical Decision Making 06/05/19 16:32 Discussion with patient at bedside. She refuses treatment in this hospital and insists on going to the [facility]. We discussed that we need an accepting physician in order to transfer (otherwise it is an EMTALA violation), however, she states she does not want to do that and does not have a specific hospital that she wants. However, she is adamant that she does not want to be treated or worked up here. We discussed risks of leaving AMA, including , permanent disability. She is alert and oriented, capable of making decisions, competent to decide to leave AMA. She requests that we get her belongings from [facility], will contact security.
== END 2019-06-05 19:05 | disposition left against medical advice (07) ==
LOC: JER 14:14
DX: E10.65 Type 1 diabetes mellitus with hyperglycemia (principal); Z79.4 Long term (current) use of insulin; E72.29 Other disorders of urea cycle metabolism; G62.9 Polyneuropathy, unspecified; F10.10 Alcohol abuse, uncomplicated; K21.9 Gastro-esophageal reflux disease without esophagitis; F17.210 Nicotine dependence, cigarettes, uncomplicated
CPT/HCPCS: 82962; 99285-25

== ENCOUNTER 2019-07-08 10:53 | Emergency (ER) | payer OTHER | END 2019-07-08 17:04 | disposition home or self-care (01) | LOC: JER 10:53 ==

== ENCOUNTER 2019-07-08 19:03 | Inpatient (IN) | payer OTHER ==
[2019-07-08 19:29] VITALS: BMI 28.1
--- NOTE | 2019-07-08 20:38 | HP ---
CIWA Score Nausea/Vomitin Muscle Tremors: 3 Anxiety: 1-Mildly Anxious Agitation: 0-Normal Activity Paroxysmal Sweats: 3 (Increased facial moisture) Orientation: 0-Oriented Tacttile Disturbances: 0-None Auditory Disturbances: 0-None Visual Disturbances: 0-None Headache: 0-None Present CIWA-Ar Total Score: 10 - Admission Criteria OASAS Guidelines: Admission for Medically Managed Detox: Requires at least one of the followin. CIWA greater than 12 2. Seizures within the past 24 hours 3. Delirium tremens within the past 24 hours 4. Hallucinations within the past 24 hours 5. Acute intervention needed for co occurring medical disorder 6. Acute intervention needed for co occurring psychiatric disorder 7. Severe withdrawal that cannot be handled at a lower level of care (continued vomiting, continued diarrhea, abnormal vital signs) requiring intravenous medication and/or fluids 8. Patient presents the following: Acute intervention needed for co-occurring med or psych disorder (Was rx'd in ED earlier today w/ fluids and insulin, for hyperglycemia/uncontrolled DM) Admission Criteria Met: Admission criteria met Admission ROS [facility] Chief Complaint: Here for rehab Allergies/Adverse Reactions: Allergies Allergy/AdvReac Type Severity Reaction Status Date / Time fish derived Allergy Severe Swelling Verified 07/08/19 19:17 shellfish derived Allergy Severe Swelling Verified 07/08/19 19:17 No Known Drug Allergies Allergy Verified 07/08/19 19:17 SEAFOOD Allergy Severe Swelling Uncoded 07/08/19 19:17 History of Present Illness: 48 yo presented to [facility] earlier, lethargic w/ BG of 463. Was sent to [facility] ED, where rx'd w/ insulin and hydration. CT - head in ED - wnl: Serum ammonia - elevated in 60's but significantly lower than 05/2019 levels. Returned to [facility] for admission to rehab, but based on alcohol use patient would need detox first and then rehab/. Patient is alert and oriented and agreeable to this. Alcohol use since age 43. Patient reports current alcohol use is 1/2 pint to 1 liter/day - Last drink yesterday. States has been drinking continuously for past 3 months. Cocaine/crack use since age 44. Reports using 1-2x/wk. U-tox negative for DEEPAK. Denies hx seizures. blackouts or overdoses. Denies tobacco use. Reviewed lab results from last [facility] visit in May 2019 and [facility] ED visit from today (07/08/19) and no further routine blood tests are needed. PMHx : HTN, IDDM; Impaired circulation to BLE; Chronic neck pain; Hx osteomyelitis; Hx. MRSA (Last 2 yrs ago); heart murmur MHHx: Anxiety. Denies thoughts of harming self or others. Patient Name: Aruna Corral Date: 1970 Address: [address] [place] [id number] Sex: Female Rx Written Rx Dispensed Drug Quantity Days Supply Prescriber Name 10/14/2018 10/14/2018 tramadol hcl 50 mg tablet 60 30 Yuri Shirley MD Patient Name: Aruna Corral Date: 1970 Address: [address] [place] [address] Sex: Female Rx Written Rx Dispensed Drug Quantity Days Supply Prescriber Name 09/29/2018 09/29/2018 lyrica 150 mg capsule 14 14 Jihan Cash MD 09/03/2018 09/03/2018 tramadol hcl 50 mg tablet 60 15 Jihan Cash MD 09/03/2018 09/03/2018 lyrica 150 mg capsule 14 14 Jihan Cash MD 08/19/2018 08/24/2018 lyrica 150 mg capsule 14 14 Jihan Cash MD 08/11/2018 08/12/2018 lyrica 150 mg capsule 14 14 Santa Russo 07/27/2018 07/27/2018 lyrica 150 mg capsule 14 14 [place] 07/09/2018 07/10/2018 lyrica 150 mg capsule 14 14 Darin Higuera 07/09/2018 07/10/2018 tramadol hcl 50 mg tablet 60 15 Darin Higuera Exam Limitations: No Limitations - Ebola screening Have you traveled outside of the country in the last 21 days: No Have you had contact with anyone from an Ebola affected area: No Have you been sick,other than usual withdrawal symptoms: No (Denies recent exposure to measles. ) Do you have a fever: No - Review of Systems Constitutional: Diaphoresis, Changes in sleep (Difficulty falling asleep) EENT: reports: Blurred Vision Respiratory: reports: No Symptoms reported Cardiac: reports: No Symptoms Reported GI: reports: Nausea, Indigestion (Acid reflux - nexium @ home) : reports: Other (Yellowish vaginal discharge) Musculoskeletal: reports: Back Pain (Chronic sharp LBP "9". Worsens w/ standing , turning; Improves w/ laying down), Other (Chronic achy neck pain "9". Increases w/ fatigue; Improves w/laying) Integumentary: reports: Lesions (Scrape (R); scratch (L) arm;), Pruritus ( Chronic itchy skin) Neuro: reports: Tremors, Dizziness (r/t too much noisy. States rooms spins.) Endocrine: reports: Increased Thirst Hematology: reports: No Symptoms Reported Psychiatric: reports: Judgement Intact, Orientated x3, Anxious Patient History - Patient Medical History Hx Anemia: No Hx Asthma: No Hx Chronic Obstructive Pulmonary Disease (COPD): No Hx Cancer: No Hx Cardiac Disorders: No Hx Congestive Heart Failure: No Hx Hypertension: Yes Hx Hypercholesterolemia: No Hx Pacemaker: No HX Cerebrovascular Accident: No Hx Seizures: No Hx Dementia: No Hx Diabetes: Yes Hx Gastrointestinal Disorders: Yes Hx Liver Disease: No Hx Genitourinary Disorders: No Hx Sexually Transmitted Disorders: No Hx Renal Disease (ESRD): No Hx Thyroid Disease: No Hx Human Immunodeficiency Virus (HIV): No (NEGATIVE HX last 10/18 negative) Hx Hepatitis C: No (NEGATIVE ) Hx Depression: No Hx Suicide Attempt: No Hx Bipolar Disorder: No Hx Schizophrenia: No - Patient Surgical History Past Surgical History: Yes Hx Neurologic Surgery: No Hx Cataract Extraction: No Hx Cardiac Surgery: No Hx Lung Surgery: No Hx Breast Surgery: No Hx Breast Biopsy: No Hx Abdominal Surgery: Yes (TUBAL LIGATION IN 2005) Hx Appendectomy: Yes (10/25/17) Hx Cholecystectomy: Yes (lap ) Hx Genitourinary Surgery: No Hx Section: No Hx Orthopedic Surgery: Yes (neck, 11/30/2015 (fall);SX COCYX DUE TO OSTEOMYLITIS - 2010) Other Surgical History: Pt had sx for intestinal blockage in 11/[address] [facility] 11/16 Anesthesia Reaction: No - PPD History Previous Implant?: Yes Documented Results: Negative w/proof Implanted On Prior [facility] Admission?: Yes Date: 11/11/18 Results: 0mm PPD to be Administered?: No - Reproductive History Patient is a Female of Child Bearing Age (11 -55 yrs old): Yes Last Menstrual Period: 05/21/19 Patient : No - Smoking Cessation Smoking history: Never smoked Have you smoked in the past 12 months: No Aproximately how many cigarettes per day: 0 Cigars Per Day: 0 Hx Chewing Tobacco Use: No Initiated information on smoking cessation: No - Substance & Tx. History Hx Alcohol Use: Yes Hx Substance Use: Yes Substance Use Type: Alcohol, Cocaine Hx Substance Use Treatment: No (detox, rehab) - Substances abused Alcohol Substance route: Oral Frequency: Daily Amount used: 2 of little vodka Age of first use: 43 Date of last use: 07/07/19 Cocaine Other (specify): crack Substance route: Smoking Frequency: 1-2 times per week Amount used: 10$ Age of first use: 44 Date of last use: 07/01/19 Family Disease History - Family Disease History Family Disease History: Diabetes: Grandparent (alcohol), Father (alive: 68: HTN) , Mother (alive: 67), Other: Grandparent, Father, Mother Admission Physical Exam [facility] - Vital Signs Vital Signs: Vital Signs - 24 hr 07/08/19 07/08/19 09:19 19:22 Temperature 97.5 F L 97.4 F L Pulse Rate 85 91 H Respiratory 16 18 Rate Blood Pressure 147/87 140/80 - Physical General Appearance: Yes: Nourished, Mild Distress, Sweating (Increased facial moisture), Anxious HEENTM: Yes: EOMI (Jerking movement of eyes upon lateral gaze), Hearing grossly Normal, Normocephalic, Normal Voice, HIGINIO, Pharynx Normal Respiratory: Yes: Lungs Clear (O2 Sat = 99 %), Normal Breath Sounds, No Respiratory Distress Neck: Yes: Trachea in good position Breast: Yes: Breast Exam Deferred Cardiology: Yes: Regular Rhythm, Regular Rate, S1, S2, Murmur Abdominal: Yes: Non Tender, Soft, Increased Bowel Sounds Genitourinary: Yes: Vaginal Discharge (Yellowish vaginal discahrge) Back: Yes: Vertebral Tenderness (Neck and low back area) Musculoskeletal: Yes: full range of Motion, Gait Steady Extremities: Yes: Normal Range of Motion, Tremors (Slight tremors), Pedal Edema (Mild edema w/o pitting toes to ankles. Faint pedal pulses.), Erythema ( Bilateral erythema from toes to mid-calf, waxy texture skin from ankles to mid- calf;), Other 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: Yes: health information director II-XII NML intact (Jerking movement of eyes upon lateral gaze), Fully Oriented, Alert, Motor Strength 5/5, Normal Response Integumentary: Yes: Normal Color, Warm, Erythema (Bilateral erythema from toes to mid-calf, waxy texture skin from ankles to mid-calf;), Diaphoresis ( Increased facial moisture), Moist (Mosit skin w/ increased erythema in breast and inguinal folds), Other (Dry flaky skin between toes and bottom of feet; Thickenend, flaky toe nails) Lymphatic: Yes: Within Normal Limits - Diagnostic (1) Murmur, cardiac Current Visit: Yes Status: Chronic (2) Vaginitis and vulvovaginitis Current Visit: Yes Status: Acute (3) Nystagmus Current Visit: Yes Status: Acute (4) Disorder of the skin and subcutaneous tissue, unspecified Current Visit: Yes Status: Chronic (5) Alcohol dependence with uncomplicated withdrawal Current Visit: Yes Status: Acute (6) Cocaine dependence Current Visit: No Status: Chronic Qualifiers: Substance use status: in remission Qualified Code(s): F14.21 - Cocaine dependence, in remission (7) Diabetes mellitus, insulin dependent (IDDM), uncontrolled Current Visit: Yes Status: Chronic Qualifiers: Glycemic state: with hyperglycemia Qualified Code(s): E10.65 - Type 1 diabetes mellitus with hyperglycemia (8) GERD (gastroesophageal reflux disease) Current Visit: Yes Status: Chronic Qualifiers: Esophagitis presence: without esophagitis Qualified Code(s): K21.9 - Gastro -esophageal reflux disease without esophagitis (9) Hypertension Current Visit: Yes Status: Chronic Qualifiers: Hypertension type: essential hypertension Qualified Code(s): I10 - Essential (primary) hypertension (10) Tinea pedis Current Visit: Yes Status: Chronic Qualifiers: Laterality: bilateral Qualified Code(s): B35.3 - Tinea pedis (11) Chronic back pain Current Visit: Yes Status: Chronic Qualifiers: Back pain location: back pain in unspecified location Back pain laterality : midline Qualified Code(s): M54.9 - Dorsalgia, unspecified; G89.29 - Other chronic pain (12) Serum ammonia increased Current Visit: Yes Status: Chronic Cleared for Admission [facility] - Detox or Rehab [facility] Level of Care: Medically Managed Detox Regimen/Protocol: Librium Claeared for Rehab Admission: No Breathalyzer - Breathalyzer Breathalyzer: 0 POC Urine test - Test device test lot number: [id number] Expiration date: 07/31/20 - Control test control: Yes Urine Drug Screen - Test Device Lot number: [id number] Expiration date: 03/30/20 - Control Is test valid?: Yes - Results Drug screen NEGATIVE: Yes Urine drug screen results: BZO-Benzodiazepines Inpatient Rehab Admission - Rehab Decision to Admit Inpatient rehab admission?: No
[2019-07-08] MEDS ORDERED: ACETAMINOPHEN 325 MG TABLET (FP) PO PRN ×2 (21:36)
[2019-07-08] MEDS ORDERED: MELATONIN 5 MG TABLETS PO PRN (21:36)
[2019-07-08] MEDS ORDERED: METHOCARBAMOL 500 MG TABLET PO PRN (21:36)
[2019-07-08] MEDS ORDERED: MENTHOL/PHENOL 1 EACH UD MM PRN (21:36)
[2019-07-08] MEDS ORDERED: MAGNESIUM CITRATE 300 ML BOTTLE PO PRN (21:36)
[2019-07-08] MEDS ORDERED: MAGNESIUM HYDROX 2400MG/30ML ORAL SUSPENSION 30 ML CUP PO PRN (21:36)
[2019-07-08] MEDS ORDERED: IBUPROFEN 400 MG TABLET (FP) PO PRN (21:36)
[2019-07-08] MEDS ORDERED: MAG HYDROX/AL HYDROX/SIMETH 30 ML UNIT-DOSE CUP PO PRN (21:36)
[2019-07-08] MEDS ORDERED: BISMUTH SUBSALICYLATE 524 MG/30 ML UD PO PRN (21:36)
[2019-07-08] MEDS ORDERED: FLUCONAZOLE 150 MG TABLET PO ONE (21:42)
[2019-07-08] MEDS ORDERED: INSULIN (LEVEMIR) 100 UNITS/ML UNITS SQ SCH (22:00)
[2019-07-08] MEDS ORDERED: NYSTATIN POWDER 100,000 UNITS/GM - 15 GM TOPICAL POWDER TP SCH (22:00)
[2019-07-08] MEDS ORDERED: chlordiazePOXIDE HCL 10 MG CAPSULE PO PRN (22:04)
[2019-07-08] MEDS: GABAPENTIN 300 MG CAPSULE (FP) PO SCH (22:49)
[2019-07-08] MEDS: RANITIDINE HCL 150 MG TABLET (FP) PO SCH (22:49)
[2019-07-08] MEDS: THIAMINE HCL 100 MG TABLET (FP) PO SCH (22:53)
[2019-07-08] MEDS ORDERED: INSULIN (NOVOLOG) ASPART 100 UNITS/ML 10ML VIAL SQ ONE (23:22)
[2019-07-08] MEDS ORDERED: INSULIN SLIDING SCALE (NOVOLOG) 1 VIAL SQ ONE (23:41)
[2019-07-09] MEDS: CLOTRIMAZOLE 1% CREAM 15 GM TUBE TP SCH ×3 (00:30→23:21)
[2019-07-09] MEDS: chlordiazePOXIDE HCL 25 MG CAPSULE PO SCH ×3 (05:55→23:18)
[2019-07-09] MEDS ORDERED: INSULIN SLIDING SCALE (NOVOLOG) 1 VIAL SQ ONE (07:18)
[2019-07-09] MEDS: INSULIN SLIDING SCALE (NOVOLOG) 1 VIAL SQ SCH ×3 (07:31→17:55)
[2019-07-09] MEDS: LISINOPRIL 10 MG TABLET (FP) PO SCH (11:01)
[2019-07-09] MEDS: RANITIDINE HCL 150 MG TABLET (FP) PO SCH ×2 (11:01→23:18)
[2019-07-09] MEDS: TOLNAFTATE 1% CREAM 15 GM TUBE TP SCH ×2 (11:01→23:22)
[2019-07-09] MEDS: GABAPENTIN 300 MG CAPSULE (FP) PO SCH ×4 (11:01→23:21)
[2019-07-09] MEDS: PRENATAL VITAMINS W/ FOLIC ACID TABLET (FP) PO SCH (11:02)
--- NOTE | 2019-07-09 12:28 | PN ---
S CIWA - CIWA Score Nausea/Vomitin-No Nausea/No Vomiting Muscle Tremors: 3 Anxiety: 3 Agitation: 3 Paroxysmal Sweats: 2 Orientation: 0-Oriented Tacttile Disturbances: 0-None Auditory Disturbances: 0-None Visual Disturbances: 0-None Headache: 0-None Present CIWA-Ar Total Score: 11 S Progress Note (SOAP) Subjective: shakes tires sweats feeling so much better Objective: 07/09/19 12:29 Vital Signs Temperature 98.8 F 07/09/19 10:17 Pulse Rate 93 H 07/09/19 10:17 Respiratory Rate 16 07/09/19 10:17 Blood Pressure 153/84 07/09/19 10:17 O2 Sat by Pulse Oximetry (%) Laboratory Tests 07/08/19 07/08/19 07/09/19 10:19 22:47 05:54 POC Glucometer 466 514 369 07/09/19 11:09 POC Glucometer 359 aaox3 ambulating no acute distress Assessment: 07/09/19 13:32 withdrawal sx Plan: continue detox increase fluids
--- NOTE | 2019-07-09 16:29 | PN ---
[facility] Progress Note Note: Medicine Consult: hyperglycemia Ms. Corral is a 48yo female with hx of DM, HTN, cirrhosis s/p TIPS, ETOH use disorder, cocaine use disorder, diabetic neuropathy, and GERD who presented to [facility] for ETOH detox on 07/08/19. Her BG was 466 and was A/Ox1, so she was transported to [facility] ED. She was given fluids and insulin, had improved mental status, and then was transported back to [facility] and admitted on 07/08/19 for detox. Last BG was 359 this morning at 11:09 and 414 at 16:48. Her chart shows hx of poor glucose control. Pt reports feeling better today. She reports adhering to insulin schedule at home. She reports previously being on metformin. PMH: DM HTN cirrhosis s/p TIPS ETOH use disorder cocaine use disorder diabetic neuropathy GERD Surgical hx: appendectomy cholesyctectomy TIPS Family hx: DM HTN Social hx: ETOH use cocaine use Current Medications Gabapentin (Neurontin -) 600 mg PO QID [facility] Insulin Aspart (Novolog Vial Sliding Scale -) 1 vial SQ TIDAC [facility]; Protocol Last Admin: 07/09/19 11:12 Dose: 8 units Insulin Detemir (Levemir Vial) 42 units SQ HS [facility] Lisinopril (Prinivil) 10 mg PO DAILY [facility] Methocarbamol (Robaxin -) 500 mg PO Q6H PRN Multivit/Folic Acid/Iron ( Vitamins ([facility]) -) 1 tab PO DAILY [facility] Ranitidine HCl (Zantac -) 150 mg PO BID [facility] Thiamine HCl (Vitamin B1 -) 100 mg PO HS [facility] Tolnaftate (Tinactin 1% Cream -) 1 applic TP BID [facility] Laboratory Results - last 24 hr 07/08/19 07/09/19 07/09/19 22:47 05:54 11:09 POC Glucometer 514 369 359 07/09/19 16:48 POC Glucometer 414 Vital Signs 07/09/19 16:20 Temperature 98.1 F Pulse Rate 87 Respiratory 20 Rate Blood Pressure 154/82 PE: General- A/Ox3, not in distress Skin- dusky skin on LE bilaterally from foot to mid calf A/P: The pt is a 48yo female with hx of DM and HTN who is admitted for detox from ETOH and cocaine. She has poorly controlled DM with last BG 414 this afternoon. #hyperglycemia Last A1C in March was 11.4 so will repeat Increase Lantus from 42U to 45U Continue BGM before meals If BG is not decreasing, consider increasing SSI #HTN Continue lisinopril, notify if hypertensive urgency occurs, no recent extreme systolic measurements so unlikely to happen Aisha Emery, DO PGY-1, Medicine
[2019-07-09] MEDS: LACTULOSE 20 GM/30 ML UDC (FOR ORAL USE ONLY) PO SCH (23:17)
[2019-07-09] MEDS: INSULIN (LEVEMIR) 100 UNITS/ML UNITS SQ SCH (23:18)
[2019-07-09] MEDS: THIAMINE HCL 100 MG TABLET (FP) PO SCH (23:18)
[2019-07-10] MEDS ORDERED: chlordiazePOXIDE HCL 10 MG CAPSULE PO PRN
[2019-07-10] MEDS: chlordiazePOXIDE 5 MG CAPSULE PO SCH ×3 (05:39→22:09)
[2019-07-10] MEDS ORDERED: INSULIN SLIDING SCALE (NOVOLOG) 1 VIAL SQ ONE ×2 (06:32→22:15)
[2019-07-10] MEDS: INSULIN SLIDING SCALE (NOVOLOG) 1 VIAL SQ SCH ×3 (06:42→17:26)
[2019-07-10 10:21] LABS: EPI CELLS 1.5 /HPF (0-5/HPF); HYALINE CASTS 0 /lpf (0-8); PH,URINE 8.5 (5.0-8.0); URINE APPEARANCE CLEAR; URINE BACTERIA 87.6 /hpf (NEGATIVE); URINE BILIRUBIN NEGATIVE (NEGATIVE); URINE COLOR YELLOW; URINE GLUCOSE (UA) 3+ (NEGATIVE); URINE KETONE NEGATIVE (NEGATIVE); URINE LEUK ESTERASE NEGATIVE (NEGATIVE); URINE NITRITE NEGATIVE (NEGATIVE); URINE PROTEIN NEGATIVE (NEGATIVE); URINE RBC 6 /hpf (0-4); URINE UROBILINOGEN 0.2 mg/dL (0.2-1.0); URINE WBC 3 /hpf (0-5)
[2019-07-10] MEDS: PRENATAL VITAMINS W/ FOLIC ACID TABLET (FP) PO SCH (11:13)
[2019-07-10] MEDS: LISINOPRIL 10 MG TABLET (FP) PO SCH (11:13)
[2019-07-10] MEDS: GABAPENTIN 300 MG CAPSULE (FP) PO SCH ×4 (11:13→22:09)
[2019-07-10] MEDS: CLOTRIMAZOLE 1% CREAM 15 GM TUBE TP SCH ×2 (11:14→22:17)
[2019-07-10] MEDS: RANITIDINE HCL 150 MG TABLET (FP) PO SCH ×2 (11:14→22:09)
[2019-07-10] MEDS: TOLNAFTATE 1% CREAM 15 GM TUBE TP SCH ×2 (11:14→22:17)
[2019-07-10] MEDS: LACTULOSE 20 GM/30 ML UDC (FOR ORAL USE ONLY) PO SCH ×2 (11:14→22:17)
[2019-07-10] MEDS ORDERED: COLLOIDAL OATMEAL 1 BAR EACH TP ONE (13:35)
--- NOTE | 2019-07-10 13:35 | PN ---
[facility] CIWA - CIWA Score Nausea/Vomitin-No Nausea/No Vomiting Muscle Tremors: 3 Anxiety: 2 Agitation: 3 Paroxysmal Sweats: 2 Orientation: 0-Oriented Tacttile Disturbances: 0-None Auditory Disturbances: 0-None Visual Disturbances: 0-None Headache: 0-None Present CIWA-Ar Total Score: 10 S Progress Note (SOAP) Subjective: mild shakes interrupted sleep anxiety sweats my skin itchy with the soap provided by hospital Objective: 07/10/19 13:33 Vital Signs Temperature 97.7 F 07/10/19 09:40 Pulse Rate 97 H 07/10/19 09:40 Respiratory Rate 18 07/10/19 09:40 Blood Pressure 144/99 07/10/19 09:40 O2 Sat by Pulse Oximetry (%) Laboratory Tests 07/08/19 07/08/19 07/09/1919 22:47 05:54 POC Glucometer 466 514 369 Hemoglobin A1c % Urine Color Urine Appearance Urine pH Ur Specific [place] Urine Protein Urine Glucose (UA) Urine Ketones Urine Blood Urine Nitrite Urine Bilirubin Urine Urobilinogen Ur Leukocyte Esterase Urine WBC (Auto) Urine RBC (Auto) Urine Casts (Auto) U Epithel Cells (Auto) Urine Bacteria (Auto) 07/09/19 07/09/19 07/10/19 11:09 16:48 05:38 POC Glucometer 359 414 420 Hemoglobin A1c % Urine Color Urine Appearance Urine pH Ur Specific [place] Urine Protein Urine Glucose (UA) Urine Ketones Urine Blood Urine Nitrite Urine Bilirubin Urine Urobilinogen Ur Leukocyte Esterase Urine WBC (Auto) Urine RBC (Auto) Urine Casts (Auto) U Epithel Cells (Auto) Urine Bacteria (Auto) 07/10/19 07/10/19 07/10/19 08:00 08:20 11:17 POC Glucometer 357 Hemoglobin A1c % 11.7 H Urine Color Yellow Urine Appearance Clear Urine pH 8.5 H D Ur Specific [place] 1.026 Urine Protein Negative Urine Glucose (UA) 3+ H Urine Ketones Negative Urine Blood Trace Urine Nitrite Negative Urine Bilirubin Negative Urine Urobilinogen 0.2 Ur Leukocyte Esterase Negative Urine WBC (Auto) 3 Urine RBC (Auto) 6 Urine Casts (Auto) 0 U Epithel Cells (Auto) 1.5 Urine Bacteria (Auto) 87.6 labs noted A1C 11.7. noted continue with current diabetic medication as ordered encourage water intake aaox3 ambulating no acute distress Assessment: 07/10/19 13:35 withdrawal sx Plan: continue detox increase fluids aveeno soap
[2019-07-10 13:42] LABS: YEAST YEAST=1+ (NEGATIVE)
[2019-07-10] MEDS: THIAMINE HCL 100 MG TABLET (FP) PO SCH (22:10)
[2019-07-10] MEDS: hydrOXYzine PAMOATE 25 MG CAPSULE (FP) PO PRN (22:16)
[2019-07-10] MEDS: INSULIN (LEVEMIR) 100 UNITS/ML UNITS SQ SCH (22:17)
[2019-07-10] MEDS ORDERED: INSULIN (NOVOLOG) ASPART 100 UNITS/ML 10ML VIAL SQ ONE (23:14)
[2019-07-11] MEDS: chlordiazePOXIDE HCL 10 MG CAPSULE PO SCH ×3 (06:17→22:49)
[2019-07-11] MEDS: INSULIN SLIDING SCALE (NOVOLOG) 1 VIAL SQ SCH ×3 (07:36→18:09)
[2019-07-11] MEDS: LACTULOSE 20 GM/30 ML UDC (FOR ORAL USE ONLY) PO SCH ×2 (11:18→22:54)
[2019-07-11] MEDS: LISINOPRIL 10 MG TABLET (FP) PO SCH (11:19)
[2019-07-11] MEDS: GABAPENTIN 300 MG CAPSULE (FP) PO SCH ×4 (11:19→22:48)
[2019-07-11] MEDS: RANITIDINE HCL 150 MG TABLET (FP) PO SCH ×2 (11:19→22:49)
[2019-07-11] MEDS: PRENATAL VITAMINS W/ FOLIC ACID TABLET (FP) PO SCH (11:19)
[2019-07-11] MEDS: TOLNAFTATE 1% CREAM 15 GM TUBE TP SCH ×2 (11:19→23:53)
[2019-07-11] MEDS: CLOTRIMAZOLE 1% CREAM 15 GM TUBE TP SCH ×2 (11:19→22:53)
--- NOTE | 2019-07-11 17:33 | PN ---
[facility] CIWA - CIWA Score Nausea/Vomitin-No Nausea/No Vomiting Muscle Tremors: None Anxiety: 4-Mod. Anxious/Guarded Agitation: 4-Moderately Restless Paroxysmal Sweats: 3 Orientation: 0-Oriented Tacttile Disturbances: 0-None Auditory Disturbances: 0-None Visual Disturbances: 0-None Headache: 0-None Present CIWA-Ar Total Score: 11 [facility] Progress Note (SOAP) Subjective: Anxious, restless, c/o rash on groin (already ordered for clotrimazole cream) Objective: 07/11/19 17:30 Last Vital Signs Temp Pulse Resp BP Pulse Ox 97.5 F L 99 H 18 150/85 07/11/19 13:46 07/11/19 13:46 07/11/19 13:46 07/11/19 13:46 Elevated b/p, has htn (on med) Laboratory Tests 07/08/19 07/08/19 07/09/19 10:19 22:47 05:54 POC Glucometer 466 514 369 Hemoglobin A1c % Urine Color Urine Appearance Urine pH Ur Specific [place] Urine Protein Urine Glucose (UA) Urine Ketones Urine Blood Urine Nitrite Urine Bilirubin Urine Urobilinogen Ur Leukocyte Esterase Urine WBC (Auto) Urine RBC (Auto) Urine Casts (Auto) U Epithel Cells (Auto) Urine Bacteria (Auto) Urine Yeast (Auto) 07/09/19 07/09/19 07/10/19 11:09 16:48 05:38 POC Glucometer 359 414 420 Hemoglobin A1c % Urine Color Urine Appearance Urine pH Ur Specific [place] Urine Protein Urine Glucose (UA) Urine Ketones Urine Blood Urine Nitrite Urine Bilirubin Urine Urobilinogen Ur Leukocyte Esterase Urine WBC (Auto) Urine RBC (Auto) Urine Casts (Auto) U Epithel Cells (Auto) Urine Bacteria (Auto) Urine Yeast (Auto) 07/10/19 07/10/19 07/10/19 08:00 08:20 11:17 POC Glucometer 357 Hemoglobin A1c % 11.7 H Urine Color Yellow Urine Appearance Clear Urine pH 8.5 H D Ur Specific [place] 1.026 Urine Protein Negative Urine Glucose (UA) 3+ H Urine Ketones Negative Urine Blood Trace Urine Nitrite Negative Urine Bilirubin Negative Urine Urobilinogen 0.2 Ur Leukocyte Esterase Negative Urine WBC (Auto) 3 Urine RBC (Auto) 6 Urine Casts (Auto) 0 U Epithel Cells (Auto) 1.5 Urine Bacteria (Auto) 87.6 Urine Yeast (Auto) Yeast=1+ 07/10/19 07/10/19 07/10/19 16:43 22:01 23:29 POC Glucometer 507 > 600 536 Hemoglobin A1c % Urine Color Urine Appearance Urine pH Ur Specific [place] Urine Protein Urine Glucose (UA) Urine Ketones Urine Blood Urine Nitrite Urine Bilirubin Urine Urobilinogen Ur Leukocyte Esterase Urine WBC (Auto) Urine RBC (Auto) Urine Casts (Auto) U Epithel Cells (Auto) Urine Bacteria (Auto) Urine Yeast (Auto) 07/11/19 07/11/19 07/11/19 06:15 11:15 17:14 POC Glucometer 448 464 > 600 Hemoglobin A1c % Urine Color Urine Appearance Urine pH Ur Specific [place] Urine Protein Urine Glucose (UA) Urine Ketones Urine Blood Urine Nitrite Urine Bilirubin Urine Urobilinogen Ur Leukocyte Esterase Urine WBC (Auto) Urine RBC (Auto) Urine Casts (Auto) U Epithel Cells (Auto) Urine Bacteria (Auto) Urine Yeast (Auto) Labs reviewed: Yeast UTI noted Elevated glucose, patient has DM, on insulin Assessment: 07/11/19 17:31 Withdrawal sxs Yeast UTI and DMT1 (dx since age 18 as per patient) Plan: Continue detox Encouraged PO water hydration Yeast UTI: diflucan 150mg PO x 1 dose DMT1 with hyperglcyemia, uncontrolled: educated on adherence to diabetic diet, continue diabetic regimen
[2019-07-11] MEDS ORDERED: FLUCONAZOLE 150 MG TABLET PO ONE (17:34)
[2019-07-11] MEDS ORDERED: INSULIN SLIDING SCALE (NOVOLOG) 1 VIAL SQ ONE ×2 (18:02→23:22)
[2019-07-11] MEDS: THIAMINE HCL 100 MG TABLET (FP) PO SCH (22:48)
[2019-07-11] MEDS: hydrOXYzine PAMOATE 25 MG CAPSULE (FP) PO PRN (22:51)
[2019-07-11] MEDS: INSULIN (LEVEMIR) 100 UNITS/ML UNITS SQ SCH (22:53)
[2019-07-11] MEDS ORDERED: INSULIN (NOVOLOG) ASPART 100 UNITS/ML 10ML VIAL SQ ONE (23:39)
[2019-07-12] MEDS ORDERED: chlordiazePOXIDE HCL 10 MG CAPSULE PO ONE (05:00)
[2019-07-12] MEDS: INSULIN SLIDING SCALE (NOVOLOG) 1 VIAL SQ SCH ×2 (07:04→12:19)
[2019-07-12] MEDS ORDERED: INSULIN SLIDING SCALE (NOVOLOG) 1 VIAL SQ ONE (07:27)
--- NOTE | 2019-07-12 09:15 | PN ---
Teaching Attending Note Name of Resident: Aisha Emery ATTENDING PHYSICIAN STATEMENT I saw and evaluated the patient. I reviewed the resident's note and discussed the case with the resident. I agree with the resident's findings and plan as documented. SUBJECTIVE: Patient was doing well despite elevated glucose OBJECTIVE: Patient was placed on fingerstick glucose coverage. ASSESSMENT AND PLAN: Agree with assessment and plan.
--- NOTE | 2019-07-12 09:30 | DS ---
[facility] Detox Discharge Summary Admission Date: 07/08/19 Discharge Date: 07/12/19 - History Present History: Alcohol Dependence - Physical Exam Results Vital Signs: Vital Signs Temperature 98.1 F 07/12/19 06:00 Pulse Rate 97 H 07/12/19 06:00 Respiratory Rate 18 07/12/19 06:00 Blood Pressure 134/74 07/12/19 06:00 O2 Sat by Pulse Oximetry (%) Pertinent Admission Physical Exam Findings: pt arrived in [facility] Laboratory Tests 07/08/19 07/08/19 07/09/19 10:19 22:47 05:54 POC Glucometer 466 514 369 Hemoglobin A1c % Urine Color Urine Appearance Urine pH Ur Specific Sarver Urine Protein Urine Glucose (UA) Urine Ketones Urine Blood Urine Nitrite Urine Bilirubin Urine Urobilinogen Ur Leukocyte Esterase Urine WBC (Auto) Urine RBC (Auto) Urine Casts (Auto) U Epithel Cells (Auto) Urine Bacteria (Auto) Urine Yeast (Auto) 07/09/19 07/09/19 07/10/19 11:09 16:48 05:38 POC Glucometer 359 414 420 Hemoglobin A1c % Urine Color Urine Appearance Urine pH Ur Specific Sarver Urine Protein Urine Glucose (UA) Urine Ketones Urine Blood Urine Nitrite Urine Bilirubin Urine Urobilinogen Ur Leukocyte Esterase Urine WBC (Auto) Urine RBC (Auto) Urine Casts (Auto) U Epithel Cells (Auto) Urine Bacteria (Auto) Urine Yeast (Auto) 07/10/19 07/10/19 07/10/19 08:00 08:20 11:17 POC Glucometer 357 Hemoglobin A1c % 11.7 H Urine Color Yellow Urine Appearance Clear Urine pH 8.5 H D Ur Specific Sarver 1.026 Urine Protein Negative Urine Glucose (UA) 3+ H Urine Ketones Negative Urine Blood Trace Urine Nitrite Negative Urine Bilirubin Negative Urine Urobilinogen 0.2 Ur Leukocyte Esterase Negative Urine WBC (Auto) 3 Urine RBC (Auto) 6 Urine Casts (Auto) 0 U Epithel Cells (Auto) 1.5 Urine Bacteria (Auto) 87.6 Urine Yeast (Auto) Yeast=1+ 07/10/19 07/10/19 07/10/19 16:43 22:01 23:29 POC Glucometer 507 > 600 536 Hemoglobin A1c % Urine Color Urine Appearance Urine pH Ur Specific [place]ver Urine Protein Urine Glucose (UA) Urine Ketones Urine Blood Urine Nitrite Urine Bilirubin Urine Urobilinogen Ur Leukocyte Esterase Urine WBC (Auto) Urine RBC (Auto) Urine Casts (Auto) U Epithel Cells (Auto) Urine Bacteria (Auto) Urine Yeast (Auto) 07/11/19 07/11/19 07/11/19 06:15 11:15 17:14 POC Glucometer 448 464 > 600 Hemoglobin A1c % Urine Color Urine Appearance Urine pH Ur Specific [place] Urine Protein Urine Glucose (UA) Urine Ketones Urine Blood Urine Nitrite Urine Bilirubin Urine Urobilinogen Ur Leukocyte Esterase Urine WBC (Auto) Urine RBC (Auto) Urine Casts (Auto) U Epithel Cells (Auto) Urine Bacteria (Auto) Urine Yeast (Auto) 07/11/19 07/12/19 22:46 05:36 POC Glucometer 519 326 Hemoglobin A1c % Urine Color Urine Appearance Urine pH Ur Specific [place] Urine Protein Urine Glucose (UA) Urine Ketones Urine Blood Urine Nitrite Urine Bilirubin Urine Urobilinogen Ur Leukocyte Esterase Urine WBC (Auto) Urine RBC (Auto) Urine Casts (Auto) U Epithel Cells (Auto) Urine Bacteria (Auto) Urine Yeast (Auto) today pt is aaox3 ambulating no acute distress no s/s of withdrawal - Treatment Hospital Course: Detox Protocol Followed, Detoxed Safely, Responded well, Discharged Condition Good, Rehab Referral Accepted Patient has Accepted a Rehab Referral to: referred to [facility] - Medication Discharge Medications: Ambulatory Orders Esomeprazole Magnesium [Nexium 24Hr] 40 mg PO BID 11/09/18 Lisinopril [Prinivil] 10 mg PO DAILY 30 Days #30 tablet 11/17/18 Insulin Glargine,Hum.rec.anlog [Lantus Solostar PEN (NF)] 42 units SQ HS Insulin Lispro [Humalog] 100 unit SQ ASDIR PRN 05/28/19 Gabapentin [Neurontin] 600 mg PO QID 07/08/19 - Diagnosis (1) Alcohol dependence with uncomplicated withdrawal Current Visit: Yes Status: Chronic (2) Nystagmus Current Visit: Yes Status: Acute (3) Chronic back pain Current Visit: Yes Status: Chronic Qualifiers: Back pain location: back pain in unspecified location Back pain laterality : midline Qualified Code(s): M54.9 - Dorsalgia, unspecified; G89.29 - Other chronic pain (4) Diabetes mellitus, insulin dependent (IDDM), uncontrolled Current Visit: Yes Status: Chronic Qualifiers: Glycemic state: with hyperglycemia Qualified Code(s): E10.65 - Type 1 diabetes mellitus with hyperglycemia (5) Disorder of the skin and subcutaneous tissue, unspecified Current Visit: Yes Status: Chronic (6) GERD (gastroesophageal reflux disease) Current Visit: Yes Status: Chronic Qualifiers: Esophagitis presence: without esophagitis Qualified Code(s): K21.9 - Gastro -esophageal reflux disease without esophagitis (7) Hypertension Current Visit: Yes Status: Chronic Qualifiers: Hypertension type: essential hypertension Qualified Code(s): I10 - Essential (primary) hypertension (8) Murmur, cardiac Current Visit: Yes Status: Chronic (9) Hyperglycemia Current Visit: Yes Status: Acute (10) Chronic liver disease and cirrhosis Current Visit: Yes Status: Chronic (11) History of CA (myocardial infarction) Current Visit: No Status: Chronic (12) NSTEMI (non-ST elevated myocardial infarction) Current Visit: No Status: Chronic (13) Nicotine dependence Current Visit: Yes Status: Chronic Qualifiers: Nicotine product type: cigarettes Substance use status: uncomplicated Qualified Code(s): F17.210 - Nicotine dependence, cigarettes, uncomplicated (14) Polyneuropathy Current Visit: Yes Status: Chronic - AMA Did Patient Leave Against Medical Advice: No
[2019-07-12 09:42] VITALS: BP 141/81; PULSE 89; TEMP 98.2
[2019-07-12] MEDS: PRENATAL VITAMINS W/ FOLIC ACID TABLET (FP) PO SCH (10:17)
[2019-07-12] MEDS: LACTULOSE 20 GM/30 ML UDC (FOR ORAL USE ONLY) PO SCH (10:17)
[2019-07-12] MEDS: LISINOPRIL 10 MG TABLET (FP) PO SCH (10:17)
[2019-07-12] MEDS: RANITIDINE HCL 150 MG TABLET (FP) PO SCH (10:17)
[2019-07-12] MEDS: TOLNAFTATE 1% CREAM 15 GM TUBE TP SCH (10:18)
[2019-07-12] MEDS: CLOTRIMAZOLE 1% CREAM 15 GM TUBE TP SCH (10:18)
[2019-07-12] MEDS: GABAPENTIN 300 MG CAPSULE (FP) PO SCH (10:30)
--- NOTE | 2019-07-12 15:00 | PN ---
[facility] Progress Note Note: Pt is a 48 y/o female who completed detox today and referred to rehab 3 [facility]. Pt declined to stay in treatment as soon as she arrived on the unit and declined to speak further with this bid writer. Pt states her primary care is at [facility], stating "I do not share any information(when asked about her primary care provider). i have my GI, my [facility], and everything there. I have my appointment in two days". "I'm ready to go home, I'm leaving". Pt is alert o x 3. Ambulates with steady gait. Denies s/h/i. Vital Signs - 8 hr 07/12/19 09:41 Temperature 98.2 F Pulse Rate 89 Respiratory 18 Rate Blood Pressure 141/81 A/P:non compliant with treatment Pt is leaving treatment against medical advice. Encouraged to follow up with [facility] as scheduled.
== END 2019-07-12 15:00 | disposition left against medical advice (07) | DRG 894 ==
LOC: YASAS 19:03 → Y6N 21:38 → Y3E 07-12 13:11
PROVIDERS: ADMIT Surgery; ATTEND Neuromusculoskeletal Medicine & OMM
PROC: HZ2ZZZZ Detoxification Services for Substance Abuse Treatment (ICD-10-PCS; principal; 2019-07-08)
DX: F10.230 Alcohol dependence with withdrawal, uncomplicated (principal); E72.20 Disorder of urea cycle metabolism, unspecified; B37.41 Candidal cystitis and urethritis; F17.210 Nicotine dependence, cigarettes, uncomplicated; E11.42 Type 2 diabetes mellitus with diabetic polyneuropathy; E11.65 Type 2 diabetes mellitus with hyperglycemia; Z79.4 Long term (current) use of insulin; I10 Essential (primary) hypertension; H55.00 Unspecified nystagmus; M54.9 Dorsalgia, unspecified; G89.29 Other chronic pain; K21.9 Gastro-esophageal reflux disease without esophagitis; R01.1 Cardiac murmur, unspecified; B35.3 Tinea pedis; L98.9 Disorder of the skin and subcutaneous tissue, unspecified; Z91.19 Patient's noncompliance with other medical treatment and regimen; Z91.013 Allergy to seafood
CPT/HCPCS: 36415; 70450-TC; 71045-TC-FY; 80053; 81003; 81025; 82009; 82140; 82962; 83036; 85025; 99283-25